=== PATIENT | female | born 1980 | race Caucasian/White ===

== ENCOUNTER 2025-01-08 17:23 | Emergency (ER) | payer OTHER, SELFPAY ==
[2025-01-08 17:35] VITALS: BP 138/92; PULSE 107; RESP 20; TEMP 37.2; O2SAT 94; BMI 22.9
--- NOTE | 2025-01-08 17:40 | ED_ITS ---
HPI - General Adult General Chief complaint: Weakness Stated complaint: vomiting, weak Time Seen by Provider: 01/08/25 17:28 History of Present Illness HPI narrative: comes to ed with concerns of weakness, fatigue, indigestion, nausea and abd pain. was admitted to [facility] and was found out she was anemic with hemoglobin of 5 and hypokalemic- 3.2 . did get 2 units of blood and iron. 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 is a smoker that is trying to quit. 44-year-old woman presenting to the emergency department with concern of dehydration and intermittent abdominal pain. Has not vomited at all today but numerous times yesterday. Is worried about being dehydrated. Was seen a month ago and area emergency department and actually admitted due to anemia and abdominal pain. She did receive a couple un its for a hemoglobin of about 5. Recommended for GI follow-up for endoscopy. She had been vomiting coffee-ground emesis at that time. Stools are generally dark because she is continuing diet supplement iron and she does continue to take her Protonix. Underlying history of Buerger's disease and she says unfortunately continues to smoke but she is working at quitting. She continues to struggle with dietary intake limited nearly only to mash potatoes; anything else causes a wave of pain across her abdomen or might trigger her to begin vomiting usually about 3 hours later. She is not currently having abdominal pain. Is worried about potential ulcer. She mentions that she does not believe any H pylori testing was yet done. Due to insurance sorting she has not had follow-up yet but anticipating appointment with primary care provider. Hemoglobin on discharge on 12/10 was 8.1 Related Data Home Medications ?Medication ?Instructions ?Recorded ?Confirmed ferrous sulfate 324 mg (65 mg 324 mg PO DAILY 01/08/25 01/08/25 iron) tablet,delayed release pantoprazole 40 mg tablet,delayed 40 mg PO BID 01/08/25 01/08/25 release potassium chloride 20 mEq 20 meq PO DAILY 01/08/25 01/08/25 tablet,extended release Allergies Allergy/AdvReac Type Severity Reaction Status Date / Time No Known Drug Allergies Allergy Verified 01/08/25 18:54 Review of Systems Status of ROS: Reports: 6 or more systems reviewed and unremarkable except as noted in History and below PFSH PFS Social History Smoking Status: Current every day smoker What tobacco products do you use: cigarettes Do you use any of these nicotine containing products: None Second hand tobacco smoke exposure: Yes How often do you have a drink containing alcohol: never How often do you have six or more drinks on one occasion: Never AUDIT-C Alcohol total score: 0 Non-prescribed substance use: denies use service: No Exam Narrative: Exam Narrative: Mildly pale mucous membranes but not terribly so. Upper denture plate. Smells heavily of cigarette smoke. Most fingers are bandaged and black and or inflamed distally. Absent numerous distal phalanges. Abdomen is soft and mildly uncomfortable but not terribly painful. No mass appreciated. Lower extremities are without edema. Const: Vital Signs, click to edit/add: Vital Signs - 24 hr 01/08/25 17:35 01/08/25 19:13 Temperature 98.9 F Pulse Rate [Pulse Oximeter] 107 H 106 H Respiratory Rate 20 16 Blood Pressure [Le ft Upper Arm] 138/92 H 135/94 H Pulse Oximetry 94 96 Oxygen Delivery Me thod Room Air Room Air Documenting provider has reviewed patient's vital signs: yes Course Vital Signs Vital signs: Initial Vital Signs Temperature 98.9 F 01/08/25 17:35 Temperature Source Temporal Artery Scan 01/08/25 17:35 Pulse Rate 107 H 01/08/25 17:35 Respiratory Rate 20 01/08/25 17:35 Blood Pressure 138/92 H 01/08/25 17:35 Blood Pressure Mean 107 H 01/08/25 17:35 Blood Pressure Position Supine 01/08/25 17:35 Pulse Oximetry 94 01/08/25 17:35 Oxygen Delivery Method Room Air 01/08/25 17:35 Vital Signs Temperature 98.9 F 01/08/25 17:35 Pulse Rate 107 H 01/08/25 17:35 Respiratory Rate 20 01/08/25 17:35 Blood Pressure 138/92 H 01/08/25 17:35 Pulse Oximetry 94 01/08/25 17:35 Oxygen Delivery Method Room Air 01/08/25 17:35 Temperature 98.9 F 01/08/25 17:35 Pulse Rate 106 H 01/08/25 19:13 Respiratory Rate 16 01/08/25 19:13 Blood Pressure 135/94 H 01/08/25 19:13 Pulse Oximetry 96 01/08/25 19:13 Oxygen Delivery Method Room Air 01/08/25 19:13 Medications Administered Medications: Generic Name Dose Route Start Last Admin Trade Name Freq PRN Reason Stop Dose Admin Sodium Chloride 500 mls @ 1,000 mls/hr 01/08/25 20:04 01/08/25 20:07 0.9 % Sodium Chloride 500 Ml IV 01/08/25 20:33 1,000 mls/hr .Q30M ONE Administration Discontinued Medications Generic Name Dose Route Start Last Admin Trade Name Freq PRN Reason Stop Dose Admin Sodium Chloride 1,000 mls @ 1,000 mls/hr 01/08/25 18:05 01/08/25 20:01 0.9 % Sodium Chloride 1000 Ml IV 01/08/25 19:04 Infused .Q1H ONE Infusion Morphine Sulfate 4 mg 01/08/25 19:27 01/08/25 20:02 Morphine 4 Mg/Ml Inj IVP 01/08/25 19:28 4 mg ONCE ONE Administration Medical Decision Making MDM Narrative Medical decision making narrative: Can certainly initiated IV hydration per concern. Is a little tachycardic. Recheck for recurrence of anemia now 30 days since last hospitalization. Challenged by lack of follow-up. Does not appear to have a bowel obstruction. Given smoking history and gastrointestinal issues and difficulty with follow-up, might not be a bad idea to scan abdomen and pelvis. Still needs EGD and possibly colonoscopy and continued efforts at smoking cessation. Hemoglobin stable at 9.9 and potassium just a bit low at 3.[address] abdomen and pelvis independently reviewed by me appears to show rather distended stomach with possibly some restriction about the duodenum. Wonder if this might represent some ulcer formation/inflammation or other mass? Requesting pain medicine for her fingers in cold room. Given 4 mg of morphine IV Radiology over-read below INDICATION: UPPER ABD POST PRANDIAL PAIN. TECHNIQUE: CT abdomen and pelvis acquired with 62 cc Isovue 370 IV contrast. COMPARISON: None. FINDINGS: Lower chest: Unremarkable. Liver: Unremarkable. Normal in size and attenuation. No suspicious masses. Gallbladder and bile ducts: Status post cholecystectomy. No intra or extrahepatic biliary ductal dilatation. Pancreas: Unremarkable. No mass or inflammation. Spleen: Unremarkable. Normal in size. No masses. Adrenal glands: Unremarkable. No nodules. Kidneys: Punctate nonobstructing stone at the superior pole of the right kidney. No hydronephrosis or hydroureter bilaterally. GI tract: No bowel obstruction. Mural fat in the cecum and proximal large bowel, can be seen in the setting of prior multiple episodes of inflammation. Normal appendix. Vasculature: Abdominal aorta is normal in caliber. Mesenteric arteries are patent. Lymph nodes: No lymphadenopathy. Peritoneum/Abdominal Wall: Unremarkable. No sign of mass or infiltration. No free air or significant free fluid. Pelvis: Unremarkable. Bones: Unremarkable for age. IMPRESSION: No acute intra-abdominal process identified. Please note that all CT scans at this facility use dose modulation, iterative reconstruction, and/or weight-based dosing when appropriate to reduce radiation dose to as low as reasonably achievable. Dictated by Amy Edwards MD @ 01/08/2025 7:31:41 PM At a minimum inflammatory changes in the proximal colon is probably contributing to what I was seeing. Still needs scopes. Review of records indicate that had been ordered for EGD and vascular follow-up through upon discharge from hospitalization a month ago. Says was without insurance and so did not follow-up with the vascular appointment until she could get that sorted. Has applied through [facility] now. She is unaware of EGD scheduling. She would like to have scopes ordered again. I can certainly order EGD in see if we can accomplish that as an outpatient. Labs are reassuring. Vitals stable. See patient discharge plan for further discussion I would call to [facility]/clinic to find out what is going on with those referrals particularly the vascular referral. They may be able to schedule your EGD as well. As discussed, I have made an order also for EGD for you. I cannot promise that this can happen this week but would anticipate us calling you tomorrow to schedule. I do think you need to schedule with a primary care provider for follow-up and continued workup. Sending you also with a disc with copies of the images today. Continue to take your Protonix at this point. Continue to try to quit smoking. [employer] may yet have some resources. Medical Records Medical records reviewed: Yes I reviewed the patient's medical records Lab Data Lab results reviewed: Yes I reviewed the patient's lab results Labs: Lab Results 01/08/25 Range/Units 18:34 WBC 10.03 (4.50-11.00) K/uL RBC 2.94 L (4.00-5.20) m/uL Hgb 9.9 L (12.0-16.0) gm/dL Hct 32.7 L (33.0-51.0) % MCV 111 H (80-100) fL MCH 34 (26-34) pg MCHC 30 L (32-36) gm/dL RDW Coeff of Jolanta 24.4 H (11.5-15.5) % Plt Count 336 (140-440) K/uL Neut % (Auto) 80.3 H (42.0-72.0) % Lymph % (Auto) 12.0 L (20-44) % [place] % (Auto) 6.1 (0.0-11.0) % Eos % (Auto) 0.9 (0.0-7.0) % Baso % (Auto) 0.5 (0.0-3.0) % Neut # (Auto) 8.10 H (1.7-7.0) K/uL Lymph # (Auto) 1.20 (0.90-2.90) K/uL [place] # (Auto) 0.60 (0.00-0.90) K/UL Eos # (Auto) 0.09 (0.00-0.50) K/uL Baso # (Auto) 0.05 (0.00-0.30) K/uL Abs Immat Gran (auto) 0.02 (0.00-0.30) K/uL Imm/Tot Granulo (auto) 0.2 % Sodium 133 L (135-149) mmol/L Potassium 3.1 L (3.6-5.1) mmol/L Chloride 99 (96-114) mmol/L Carbon Dioxide 29 (20-32) mmol/L Anion Gap 5 L (7-15) mEq/L BUN 13 (5-24) mg/dL Creatinine 0.5 (0.5-1.5) mg/dL Estimated Creat Clear 112.38 Estimated GFR 118 ml/min Glucose 97 (60-115) mg/dL Calcium 9.2 (8.4-10.6) mg/dL Total Bilirubin 0.5 (0.1-1.5) mg/dL Direct Bilirubin 0.4 (0.0-0.5) mg/dL AST 21 (12-35) U/L ALT 10 (4-35) U/L Alkaline Phosphatase 102 (40-150) U/L Total Protein 6.6 (6.0-8.3) g/dL Albumin 3.3 (3.3-5.0) g/dL Lipase 267 (23-300) U/L Discharge Plan Discharge Clinical Impression: Anemia, Generalized postprandial abdominal pain, Thromboangiitis obliterans (Buerger's disease), Nephrolithiasis Patient Disposition: Home w/ Parent or Adult Condition: Improved Additional Instructions: I would call to [facility]/clinic to find out what is going on with those referrals particularly the vascular referral. They may be able to schedule your EGD as well. As discussed, I have made an order also for EGD for you. I cannot promise that this can happen this week but would anticipate us calling you tomorrow to paulo samano. I do think you need to schedule with a primary care provider for follow-up and continued workup. Sending you also with a disc with copies of the images today. Continue to take your Protonix at this point. Continue to try to quit smoking. [employer] may yet have some resources. Prescriptions: No Action pantoprazole 40 mg tablet,delayed release (DR/EC) 40 mg PO BID ferrous sulfate 324 mg (65 mg iron) tablet,delayed release (DR/EC) 324 mg PO DAILY potassium chloride 20 mEq tablet extended release 20 meq PO DAILY Follow Up/Referrals: Provider,Not a Local [Primary Care Provider] - Stand Alone Forms: FileString Info Instructions
[2025-01-08] MEDS: 0.9 % SODIUM CHLORIDE 1000 ml 1,000 ML IV (18:00)
--- NOTE | 2025-01-08 18:41 | CRLHL7_ITS ---
For Patients: As a result of the Century Cures Act, medical imaging exams and procedure reports are released immediately into your electronic medical record. You may view this report before your referring provider. If you have questions, please contact your health care provider. INDICATION: UPPER ABD POST PRANDIAL PAIN. TECHNIQUE: CT abdomen and pelvis acquired with 62 cc Isovue 370 IV contrast. COMPARISON: None. FINDINGS: Lower chest: Unremarkable. Liver: Unremarkable. Normal in size and attenuation. No suspicious masses. Gallbladder and bile ducts: Status post cholecystectomy. No intra or extrahepatic biliary ductal dilatation. Pancreas: Unremarkable. No mass or inflammation. Spleen: Unremarkable. Normal in size. No masses. Adrenal glands: Unremarkable. No nodules. Kidneys: Punctate nonobstructing stone at the superior pole of the right kidney. No hydronephrosis or hydroureter bilaterally. GI tract: No bowel obstruction. Mural fat in the cecum and proximal large bowel, can be seen in the setting of prior multiple episodes of inflammation. Normal appendix. Vasculature: Abdominal aorta is normal in caliber. Mesenteric arteries are patent. Lymph nodes: No lymphadenopathy. Peritoneum/Abdominal Wall: Unremarkable. No sign of mass or infiltration. No free air or significant free fluid. Pelvis: Unremarkable. Bones: Unremarkable for age. IMPRESSION: No acute intra-abdominal process identified. Please note that all CT scans at this facility use dose modulation, iterative reconstruction, and/or weight-based dosing when appropriate to reduce radiation dose to as low as reasonably achievable. Dictated by Amy Edwards MD @ 01/08/2025 7:31:41 PM (Electronically Signed)
[2025-01-08 18:51] LABS: Basophils Absolute Auto 0.05 K/uL (0.00-0.30); Basophils Percent Auto 0.5 % (0.0-3.0); Eosinophils Absolute Auto 0.09 K/uL (0.00-0.50); Eosinophils Percent Auto 0.9 % (0.0-7.0); Hematocrit 32.7 % (33.0-51.0); Hemoglobin* 9.9 gm/dL (12.0-16.0); Immature Granulocytes Abs Auto 0.02 K/uL (0.00-0.30); Immature Granulocytes Pct Auto 0.2 %; Mean Corpuscular HGB Conc 30 gm/dL (32-36); Mean Corpuscular Hemoglobin 34 pg (26-34); Mean Corpuscular Volume 111 fL (80-100); Monocytes Percent Auto 6.1 % (0.0-11.0); Neutrophils Percent Auto 80.3 % (42.0-72.0); Platelet Count* 336 K/uL (140-440); RDW Coefficient of Variation % 24.4 % (11.5-15.5); Red Blood Count 2.94 m/uL (4.00-5.20); White Blood Count* 10.03 K/uL (4.50-11.00)
[2025-01-08 18:58] LABS: Slide Review Reflex No
[2025-01-08 19:08] LABS: Chloride* 99 mmol/L (96-114)
[2025-01-08 19:09] LABS: Albumin* 3.3 g/dL (3.3-5.0); Potassium* 3.1 mmol/L (3.6-5.1); Sodium* 133 mmol/L (135-149)
[2025-01-08 19:12] LABS: Alanine Aminotransferase* 10 U/L (4-35); Alkaline Phosphatase* 102 U/L (40-150); Anion Gap 5 mEq/L (7-15); Aspartate Amino Transferase* 21 U/L (12-35); Bilirubin Direct* 0.4 mg/dL (0.0-0.5); Bilirubin Total* 0.5 mg/dL (0.1-1.5); Blood Urea Nitrogen* 13 mg/dL (5-24); Calcium* 9.2 mg/dL (8.4-10.6); Carbon Dioxide* 29 mmol/L (20-32); Creatinine* 0.5 mg/dL (0.5-1.5); Est. Creatinine Clearance* 112.38; Estimated Glomerular Filt Rate 118 ml/min; Glucose* 97 mg/dL (60-115); Lipase* 267 U/L (23-300); Total Protein* 6.6 g/dL (6.0-8.3)
[2025-01-08 19:13] VITALS: BP 135/94; PULSE 106; RESP 16; O2SAT 96
--- OUTSIDE RECORDS SUMMARY | 2025-01-08 19:37 | XMS_ITS | Clinical Summary ---
Author Organization [facility] Address [address] [place] [id number] Care Team Providers Care Distribution Clerk Name Role Phone Nonstaff, Doctor Primary Care Provider Unavailab le Allergies Active Allergy Reactions Criticality Noted Date Comments Cats (Fur, Dander, Saliva) Hives 7 Ibuprofen Edema 01/22/2007 face Medications pantoprazole 40 mg delayed-release tabletIndication s:Gastroesophage al reflux disease, unspecified whether esophagitis present Take 1 Tablet (40 mg) by mouth two times daily before meals. 60 Tablet 1 12/10/2024 5:12 PM CDT 12/10/2024 Active ferrous sulfate 325 mg (65 mg iron) tabletIndication s:Iron deficiency anemia due to chronic blood loss Take 1 Tablet (325 mg) by mouth once daily with a meal. 30 Tablet 1 12/10/2024 5:12 PM CDT 12/10/2024 Active potassium chloride 20 mEq extended-release tablet (part/cryst)Nohemi cations:Hypokale cristobal Take 1 Tablet (20 mEq) by mouth once daily with a meal. 90 Tablet 12/10/2024 5:12 PM CDT 12/10/2024 Active Active Problems Problem Noted Date Diagnosed Date Autoamputation of toe or finger 12/10/2024 Thromboangiitis obliterans (Buerger's disease) 0 12/10/2024 Overview (12/10/2024): Highly suspicious of this, though has not had full workup to rule out other potential causes, patient adamant about discharging today. Vascular referral placed upon discharge. Shortness of breath 12/09/2024 Iron deficiency anemia due to chronic blood loss 12/09/2024 Overview (12/10/2024): Suspect patient has gastritis or PUD: Frequent NSAID use, significant GERD symptoms, frequent soda pop consumption, tobacco user. EGD not completed during admission, patient adamant about discharging and hemoglobin remained stable. IV iron dextran given during admission Hypokalemia 12/09/2024 Overview (12/10/2024): Suspect this was secondary to ongoing emesis Tobacco use 12/09/2024 Major depression, single episode 07/21/2010 Overview (07/21/2010): Suicide attempt 07/04 Tobacco abuse 07/21/2010 Resolved Problems Problem Noted Date Diagnosed Date Resolved Date Alcohol abuse 12/09/2024 12/09/2024 Encounters Date Type Department Care Team Description 12/09/2024 4:44 PM CDT - 12/10/2024 6:40 PM CDT Hospital Encounter [facility] [address] [place] [address] Christie Carbajal PA Mittelsteadt, Diliana Stoimenova, MD Hospitalist, [facility] Bueno, Anuradha Watson, MD Rich, Ebonie Chi, DO Anemia, unspecified type (Primary Dx); MARVIN (dyspnea on exertion); Gastroesophageal reflux disease, unspecified whether esophagitis present; Iron deficiency anemia due to chronic blood loss; Hypokalemia; Autoamputation of toe or finger Discharge Disposition: Home Self Care 12/09/2024 Travel from Last 3 Months Immunizations Immunization Administration Dates Next Due Tdap 01/25/2006 Social History Tobacco Use Types Packs/Day Years Used Date Smoking Tobacco: Every Day Cigarettes Smokeless Tobacco: Never Tobacco Cessation:Ready to Q uit: No; Counseling Given: Yes Alcohol Use Standard Drinks/Week Comments Yes 0 (1 standard drink = 0.6 oz pur e alcohol) rare Social Connections Answer Date Recorded Do you often feel lonely or isolated from those around you? 0 12/10/2024 Financial Resource Strain Answer Date R ecorded Difficulty of Paying Living Expenses 2 12/10/2024 Difficulty of Paying Living Expenses 1 12/10/2024 Food Insecurity Answer Date Recorded Do you worry your food will run out before you are able to buy more? 1 12/10/2024 Transportation Needs Answer Date Record ed Does lack of transportation keep you from medica l appointments? 1 12/10/2024 Does lack of transportation keep you from work, meetings or getting things that you need? 1 12/10/2024 Housing Stability Answer Date Recorded What is your housing situation today? 1 12/10/2024 Interpersonal Safety Answer Date Record ed Are you being hit, kicked, p ushed or yelled at (see row info)? No 12/09/2024 Interpersonal Safety Abuse 12 - 18 Not on file 12/09/2024 Interpersonal Safety Ambulatory Vulnerability No t on file 12/09/2024 Utilities Answer Date Recorded Do you have trouble paying f or utilities (for example, heat, electricity, water, phone)? 1 12/10/2024 Comments No Sex and Gender Information Value Date Recorded Sex Assigned at Female 12/09/2024 4:46 PM CDT Legal Sex Female 5:40 AM [employer] Gender Identity Female 12/09/2024 4:46 PM CDT Sexual Orientation Straight 12/09/2024 4: 46 PM CDT Occupation Industry Job Start Date Job End Date [employer] Not on file Not on file Not on file Obstetrics History Last Filed Vital Signs Vital Sign Reading Time Taken Comments Blood Pressure 141/78 12/10/2024 5:41 PM CDT Pulse 99 12/10/2024 5:41 PM CDT Temperature 37.1 C (98.8 F) 12/10/2024 5:41 PM CDT Respiratory Rate 16 12/10/2024 5:41 PM CDT Oxygen Saturation 97% 12/10/2024 5:41 PM CDT Inhaled Oxygen Concentration - - Weight 59.9 kg (132 lb) 12/09/2024 4:49 PM CDT Height 154.9 cm (5' 1) 12/10/2024 12:15 AM CDT Body Mass Index 24.94 12/09/2024 4:49 PM CDT Plan of Treatment Health Maintenance Due Date Last Done Comments Depression screening for age 12+ 1991 HIV for age 15-65 1994 BMI (ht and wt on same day) for age 18+ 1997 Hepatitis C screening for age 18-79 1997 Pneumococcal series for age 6-49 (1 of 2 - PCV) 1997 Pap test for age 21-65 02/12/2000 Tetanus booster 01/26/2016 01/25/2006 Colonoscopy through age 75 02/12/2024 Lipids for age 45-75 02/12/2024 Mammogram for age 45-75 02/12/2024 COVID-19 vaccine series ( - season) Influenza Vaccine (Season Ended) 2025 Tdap Completed 01/25/2006 Procedures Procedure Name Priority Date/Time Associated Diagnosis Comments RBC W/O TYPE & SCREEN STAT 12/11/2024 5:22 AM CDT SEDIMENTATION RATE INDER 12/10/2024 12 :22 PM CDT C-REACTIVE PROTEIN INDER 12/10/2024 12 :22 PM CDT POTASSIUM Timed 12/10/2024 12:22 PM CDT HEMOGLOBIN Timed 12/10/2024 12:22 PM CDT SCAN-CARDIAC STRIP 12/10/2024 9: 25 AM CDT PERIPHERAL BLD MORPHOLOGY Early AM 12/10/2024 5:52 AM CDT CARDIOLIPIN ANTIBODY INDER 12/10/2024 5:51 AM CDT MAGNESIUM INDER 12/10/2024 5:51 AM CDT PLATELET COUNT Early AM 12/10/2024 5:51 AM CDT CREATININE Early AM 12/10/2024 5:51 AM CDT POTASSIUM Early AM 12/10/2024 5:51 AM CDT SODIUM Early AM 12/10/2024 5:51 AM CDT VITAMIN B12 Early AM 12/10/2024 5:51 AM CDT HEMOGLOBIN Timed 12/10/2024 5:51 AM CDT SCAN-CARDIAC STRIP 12/10/2024 4: 06 AM CDT TRANSFUSE RBC (NURSE COMMUNICATION ORDER) STAT 12/10/2024 2:53 AM CDT RED BLOOD CELLS EA UNIT STAT 12/10/2024 1:20 AM CDT FOLIC ACID Timed 12/10/2024 12:50 AM CDT ANTINUCLEAR ANTIBODY BY IFA Today 12/10/2024 12:49 AM CDT HEMOGLOBIN Timed 12/10/2024 12:49 AM CDT LD,TOTAL Today 12/10/2024 12:49 AM CDT TROPONIN T (HS) ONE TIME Timed 12/10/2024 12:49 AM CDT TRANSFUSE RBC (NURSE COMMUNICATION ORDER) STAT 12/09/2024 8:47 PM CDT OCCULT BLOOD IFOBT STOOL Today 12/09/2024 7:22 PM CDT SCAN-CARDIAC STRIP 12/09/2024 7: 15 PM CDT RBC W/O TYPE & SCREEN STAT 12/09/2024 7:15 PM CDT TYPE & SCREEN STAT 12/09/2024 6:59 PM CDT HEMOGLOBIN A1C INDER 12/09/2024 6:59 PM CDT RETICULOCYTES INDER 12/09/2024 6:59 PM CDT HEPATIC FUNCTION PANEL INDER 6:59 PM CDT POTASSIUM STAT 12/09/2024 6:59 PM CDT HEMOGLOBIN STAT 12/09/2024 6:59 PM CDT RED BLOOD CELLS EA UNIT STAT 12/09/2024 6:46 PM CDT XR CHEST 2 VIEWS PA AND LATERAL STAT 12/09/2024 6:16 PM CDT EKG 12 LEAD STAT 12/09/2024 5:47 PM CDT PROTIME-INR INDER 12/09/2024 5:43 PM CDT HAPTOGLOBIN INDRE 12/09/2024 5:43 PM CDT FERRITIN INDER 12/09/2024 5:43 PM CDT IRON PLUS IRON BINDING CAP INDER 12/09/2024 5:43 PM CDT PRO-BNP INDER 12/09/2024 5:43 PM CDT TROPONIN T (HS) ACUTE W/2HR REFLEX INDER 12/09/2024 5:43 PM CDT MAGNESIUM INDER 12/09/2024 5:43 PM CDT CWS PATH REVIEW HEMATOLOGY STAT 12/09/2024 5:43 PM CDT RED CELL MORPHOLOGY STAT 12/09/2024 5 :43 PM CDT PLATELET ESTIMATE STAT 12/09/2024 5:4 3 PM CDT MANUAL DIFFERENTIAL STAT 12/09/2024 5 :43 PM CDT CBC WITH AUTO DIFFERENTIAL STAT 12/09/2024 5:43 PM CDT ETHANOL SERUM OR PLASMA STAT 12/09/2024 5:43 PM CDT EXTRA TUBE BLUE Today 12/09/2024 5:43 PM CDT BASIC METABOLIC PANEL STAT 12/09/2024 5:43 PM CDT CBC WITH AUTO DIFFERENTIAL STAT 12/09/2024 5:43 PM CDT from Last 3 Months Results * RBC W/O TYPE & SCREEN (12/11/2024 5:22 AM CDT) Only the most recent of2 resultswithin the time period is included. QUANTITY 1 12/11/2024 5:22 AM CDT [facility] BLOOD BANK Blood BLOOD SPECIMEN / Unknown 12/10/2024 1:08 AM CDT Anuradha Bueno MD BLOOD BANK Final R esult Performing Organization Address City/[facility]/ZIP Co de Phone Number [facility] BLOOD BANK [address] [place] [address] * SEDIMENTATION RATE (12/10/2024 12:22 PM CDT) [facility] SEDIMENTATION RATE 7 <20 mm/hr 2024 1:44 PM CDT [facility] Blood BLOOD SPECIMEN / Unknown Butterfly / Unknown 12/10/2024 12:22 PM CDT 12/10/2024 12:24 PM CDT Ebonie Rich DO HEMATOLOGY Final Result Performing Organization Address City/[facility]/ZIP Co de Phone Number [facility] [address] [place] [address] * (ABNORMAL) Hemoglobin q 6 (12/10/2024 12:22 PM CDT) Only the most recent of4 resultswithin the time period is included. HEMOGLOBIN 8.1(L) 12.0 - 16.0 g/dL 12/10/2024 1:39 PM CDT [facility] MCV 90 80 - 100 fL 12/10/2024 1:39 PM CDT [facility] Blood BLOOD SPECIMEN / Unknown Butterfly / Unknown 12/10/2024 12:22 PM CDT 12/10/2024 12:24 PM CDT Anuradha Bueno MD HEMATOLOGY Final R esult Performing Organization Address City/[facility]/ZIP Co de Phone Number [facility] [address] [place] [address] * (ABNORMAL) POTASSIUM (12/10/2024 12:22 PM CDT) Only the most recent of3 resultswithin the time period is included. POTASSIUM 3.4(L) 3.5 - 5.1 mmol/L 12/10/2024 12:45 PM CDT [facility] Blood BLOOD SPECIMEN / Unknown Butterfly / Unknown 12/10/2024 12:22 PM CDT 12/10/2024 12:24 PM CDT Ebonie Rich DO CHEMISTRY Final Result Performing Organization Address [facility]/ZIP Co de Phone Number [facility] [address] [place] [address] * (ABNORMAL) C-REACTIVE PROTEIN (12/10/2024 12:22 PM CDT) C-REACTIVE PROTEIN 1.0(H) <0.5 mg/dL 12/10/2024 1:56 PM CDT [facility] Blood BLOOD SPECIMEN / Unknown Butterfly / Unknown 12/10/2024 12:22 PM CDT 12/10/2024 12:24 PM CDT Ebonie Rich DO CHEMISTRY Final Result Performing Organization Address City/[facility]/ZIP Co de Phone Number [facility] [address] [place] [address] * SCAN-CARDIAC STRIP (12/10/2024 9:25 AM CDT) us Scanner OTHER Final Result * TRANSFUSE RBC (NURSE COMMUNICATION ORDER) (12/10/2024 5:57 AM CDT) Blood BLOOD SPECIMEN / Unknown us Anuradha Bueno MD NURSING BLOOD BANK Hailee merchant Result * Peripheral blood morphology (12/10/2024 5:52 AM CDT) Case Report Special Hematology Report Case: [id number] Authorizing Provider: Anuradha Bueno MD Collected: 12/10/2024 0552 Ordering Location: [facility] Received: 12/10/[address] [place] [address] Pathologist: Chad Glynn MD Specimen: Blood 12/11/2024 2:08 PM CDT [facility] ENTRAL LABORATORY Final Diagnosis PERIPHERAL BLOOD: 1. Marked normocytic anemia, consistent with iron deficiency anemia 2. Moderate thrombocytosis, favor reactive 3. Mild absolute neutrophilia, favor reactive 4. See comment 12/11/2024 2:08 PM CDT [facility]-C ENTRAL LABORATORY at 1408 CDT Comment The morphologic and laboratory features of this anemia are characteristic of iron deficiency. In the adult population, blood loss is the most common etiology for iron deficiency with gastrointestinal and gynecologic sites (in women) being the most common sites. Malabsorption issues (gastric bypass, Crohn's disease, celiac sprue) and deficient dietary intake are also in the differential. Clinical correlation is recommended. There are no features of hemolysis. Thrombocytosis is commonly associated with iron deficiency as a reactive component and should resolve when the iron stores are adequately replenished. If the thrombocytosis persists (>450K) after adequate iron replacement (and without identifiable clinical etiology), recommend further evaluation to assess thrombocytosis. This case was also reviewed by Marisol Castillo MT, MS (ASCP). 12/11/2024 2:08 PM CDT [facility] Clinical Information The patient is a 44-year-old female. Pertinent clinical information: Severe anemia. Per EPIC: She was recently admitted 12/09/2024 - 12/10/2024 for [facility] due to chronic blood loss and thromboangiitis obliterans. Additional history includes tobacco use. 12/09/24 17:43 FERRITIN: 10.2 (L) IRON: 12 (L) IRON BINDING CAPACITY : 336 IRON,% SATURATION : 4 (L) UIBC (UNSATURATED) : 324 HAPTOGLOBIN : 163 12/10/24 00:49 LD,TOTAL: 251 (H) FOLIC ACID: 8.0 VITAMIN B12: 1,175 12/11/2024 2:08 PM CDT [facility] CBC and Differential HEMATOLOGY PARAMETERS Tested at: [facility] RESULTS EXPECTED VALUES WBC: 9.7 4.5-37y1343/cumm RBC: 2.33 4.00-5.20 mil/cumm DECREASED HGB: 5.5 12-16 gm/dl DECREASED HCT: 21.2 33-51% DECREASED MCV: 91.0 80-100 fl NORMOCYTIC MCH: 23.6 26-34 pg DECREASED MCHC: 25.9 32-36 gm/dl HYPOCHROMIC RDW: 22.8 11.5-15.5% ELEVATED PLT: 648 [id number]/uL ELEVATED MPV: 9.2 6.5-11 fl Retic: 1.9 0.5-1.5% ELEVATED Differential Tested at: [facility] Absolute (%) Expected (%) (x10*9/L) (x10*9/L) Neutrophils: 7.8 (80.4) 1.7-7.0 (42-72%) ELEVATED Lymphocytes: 1.3 (13.4) 0.9-2.9 (20-44%) Monocytes: 0.6 (6.2) <0.9 (0-11%) Basophils: 0.1 (1) <0.3 (<3.0%) 12/11/2024 2:08 PM T [facility] Reticulocytes Retic: 1.9 0.5-1.5% ELEVATED 12/11/2024 2:08 PM [facility] Microscopic Description The final diagnosis is based on microscopic examination of an appropriately stained blood smear. 12/11/2024 2:08 PM CDT [facility]-C ENTRAL LABORATORY Additional Information Interpreted at [facility], Central Laboratory - [address], [place] [address] 12/11/2024 2:08 PM CDT [facility]-C ENTRAL LABORATORY Blood BLOOD SPECIMEN / Unknown Venipuncture / Unknown 12/10/2024 5:52 AM CDT 12/10/2024 6:18 AM CDT Comment:CURRENT MEDICATIONSC urrent Facility-Administered Medications: NaCl 0.9% (ADV; MINIBAG+) IV solution, 25 mL/hr, Intravenous, continuous, Christie Carbajal PA potassium chloride 10 mEq/100 mL water for injection IVPB, 10 mEq, Intravenous, q75min, Christie Carbajal PA, Last Rate: 10 mEq (12/09/241947) potassium REPLACEMENT protocol, , Protocol, protocol, Christie Carbajal PANo current outpatient medications on file. us Anuradha Bueno MD HEMATOLOGY Final R esult [facility] [address] [place] [address], * CARDIOLIPIN ANTIBODY (12/10/2024 5:51 AM CDT) Cardiolipin IgA 2.1 <=20.0 CU 5 12:17 PM CDT [facility] Cardiolipin IgG 2.7 <=20.0 CU 5 12:17 PM CDT [facility] Cardiolipin IgM 1.8 <=20.0 CU 5 12:17 PM CDT [facility] Blood BLOOD SPECIMEN / Unknown Butterfly / Unknown 12/10/2024 5:51 AM CDT 12/10/2024 6:18 AM CDT Narrative [facility] - 12/13/2024 12:17 PM CDT Interpretation: Moderate to high titers (40 GPL or MPL by RIMMA assays) of aCL correlate better with aPL-related clinical events than do lower titers; IgG is more strongly associated with clinical events than is IgM ([facility] 378(21):2009). Horticultural Services Supervisor's studies have shown the following correlation between anti- cardiolipin antibody levels quantified by the BioFlash Chemiluminescent method compared to RIMMA (Antibodies 2016,5,14): For IgG aCL: 95 CU corresponds to 40 GPL For IgM aCL: 31 CU corresponds to 40 MPL Ebonie Rich DO SEND OUTS Final Result Performing Organization Address City/[facility]/ZIP Co de Phone Number [facility]-CENTRAL LABORATORY [address] [place] [address], * (ABNORMAL) PLATELET COUNT (12/10/2024 5:51 AM CDT) PLATELET COUNT 531(H) 140 - 440 thou/cu mm 12/10/2024 6:23 AM CDT [facility] MPV 9.1 6.5 - 11.0 fL 12/10/2024 6:23 AM CDT [facility] Blood BLOOD SPECIMEN / Unknown Butterfly / Unknown 12/10/2024 5:51 AM CDT 12/10/2024 6:17 AM CDT Anuradha Bueno MD HEMATOLOGY Final R esult Performing Organization Address [facility] Co de Phone Number [facility] [address] [place] [address] * SODIUM (12/10/2024 5:51 AM CDT) SODIUM 141 136 - 145 mmol/L 12/10/2024 7:11 AM CDT [facility] Blood BLOOD SPECIMEN / Unknown Butterfly / Unknown 12/10/2024 5:51 AM CDT 12/10/2024 6:18 AM CDT Anuradha Bueno MD CHEMISTRY Final R esult Performing Organization Address [facility] Co de Phone Number [facility] [address] [place] [address] * (ABNORMAL) CREATININE (12/10/2024 5:51 AM CDT) Pathologist [facility] eGFR >90 >90 mL/min/1.7 3m2 12/10/2024 7:11 AM CDT [facility] Comment:As of 2021, eG FR is calculated by the CKD-EPI creatinine equation without race adjustment. eGFR can be influenced by muscle mass, exercise, and diet. The reported eGFR is an estimation only and is only applicable if the renal function is stable. CREATININE 0.31(L) 0.50 - 0.90 mg/dL 12/10/2024 7:11 AM CDT [facility] Blood BLOOD SPECIMEN / Unknown Butterfly / Unknown 12/10/2024 5:51 AM CDT 12/10/2024 6:18 AM CDT Anuradha Bueno MD CHEMISTRY Final R esult [facility] [address] [place] [address] * MAGNESIUM (12/10/2024 5:51 AM CDT) Only the most recent of2 resultswithin the time period is included. Pathologist [facility] MAGNESIUM 2.0 1.6 - 2.6 mg/dL 12/10/2024 7:22 AM CDT [facility] Blood BLOOD SPECIMEN / Unknown Butterfly / Unknown 12/10/2024 5:51 AM CDT 12/10/2024 6:18 AM CDT Danyelle Stevens NP CHEMISTRY Final Result [facility] [address] [place] [address] * Vitamin B12 level AM (12/10/2024 5:51 AM CDT) Pathologist [facility] VITAMIN B12 1,175 232 - 1,245 pg/mL 12/10/2024 1:00 PM CDT [facility] Blood BLOOD SPECIMEN / Unknown Butterfly / Unknown 12/10/2024 5:51 AM CDT 12/10/2024 6:18 AM CDT Narrative [facility] - 12/10/2024 1:00 PM CDT Biotin supplements may cause clinically significant interference for this test assay. If interference is suspected, it is strongly recommended that biotin is discontinued for at least one week prior to retesting. Anuradha Bueno MD CHEMISTRY Final R esult [facility] [address] [place] [address], [place] * SCAN-CARDIAC STRIP (12/10/2024 4:06 AM CDT) Scanner OTHER Final Result * RED BLOOD CELLS EA UNIT (12/10/2024 1:20 AM CDT) Only the most recent of2 resultswithin the time period is included. Pathologist [facility] CROSSMATCH Compatible Compatible [facility] BLOOD BANK PRODUCT BLOOD TYPE A Rh Positive [facility] BLOOD BANK PRODUCT ID NUMBER [id number] [facility] BLOOD BANK PRODUCT STATUS Transfused [facility] BLOOD BANK PRODUCT DESCRIPTION RBC -1 LR [facility] BLOOD BANK PRODUCT CODE [id number] [facility] BLOOD BANK ISSUE DATE/TIME 12/10/24 02:31 [facility] BLOOD BANK Christie JOLLEY BLOOD BANK Edited Result - Final [facility] BLOOD BANK [address] [place] [address] * FOLIC ACID (12/10/2024 12:50 AM CDT) FOLIC ACID 8.0 4.6 - 34.8 ng/mL 12/10/2024 12:55 PM CDT [facility] Blood BLOOD SPECIMEN / Unknown Butterfly / Unknown 12/10/2024 12:50 AM CDT 12/10/2024 12:53 AM CDT Narrative [facility] - 12/10/2024 12:55 PM CDT Biotin supplements may cause clinically significant interference for this test assay. If interference is suspected, it is strongly recommended that biotin is discontinued for at least one week prior to retesting. Anuradha Bueno MD CHEMISTRY Final R esult [facility] [address] [place] [address], * (ABNORMAL) TROPONIN T (HS) ONE TIME (12/10/2024 12:49 AM CDT) Pathologist [facility] TROPONIN T HS 13(H) 6-10 ng/L ng/L 12/10/2024 1:29 AM CDT [facility] Blood BLOOD SPECIMEN / Unknown Butterfly / Unknown 12/10/2024 12:49 AM CDT 12/10/2024 12:53 AM CDT Christie JOLLEY CHEMISTRY Final Result Performing Organization Address City/[facility]/ZIP Co de Phone Number [facility] [address] [place] [address] * (ABNORMAL) FLOR (12/10/2024 12:49 AM CDT) ANTINUCLEAR ANTIBODY (FLOR) Positive( A) Negative 12/13/2024 12:40 PM CDT [facility] FLOR PATTERN 1 Centromer e(A) (none) 12/13/2024 12:40 PM CDT [facility] FLOR TITER 1 >=1:2560( A) (none) 12/13/2024 12:40 PM CDT [facility] Blood BLOOD SPECIMEN / Unknown Butterfly / Unknown 12/10/2024 12:49 AM CDT 12/10/2024 12:53 AM CDT Narrative [facility] - 12/13/2024 12:40 PM CDT Method: FLOR screen performed by (IFA) on HEP-2 substrate, IgG Anuradha Bueno MD CHEMISTRY Final R esult [facility]-C[facility]AL LABORATORY [address] [place] [address], [place] * (ABNORMAL) LD,TOTAL (12/10/2024 12:49 AM CDT) LD,TOTAL 251(H) 135 - 214 IU/L 12/10/2024 1:39 AM CDT [facility] Blood BLOOD SPECIMEN / Unknown Butterfly / Unknown 12/10/2024 12:49 AM CDT 12/10/2024 12:53 AM CDT Anuradha Bueno MD CHEMISTRY Final R esult [facility] [address] [place] [address] * TRANSFUSE RBC (NURSE COMMUNICATION ORDER) (12/09/2024 10:39 PM CDT) Blood BLOOD SPECIMEN / Unknown Christie JOLLEY NURSING BLOOD BANK Fin al Result * OCCULT BLOOD IFOBT STOOL (12/09/2024 7:22 PM CDT) STOOL BLOOD ,IFOBT Negative Negative 12/09/2024 7:46 PM CDT [facility] Stool STOOL SPECIMEN / Unknown Non-Blood / Unknown 12/09/2024 7:22 PM CDT 12/09/2024 7:26 PM CDT Christie JOLLEY LABORATORY Final Result [facility] [address] [place] [address] * SCAN-CARDIAC STRIP (12/09/2024 7:15 PM CDT) us Scanner OTHER Final Result * Screening hemoglobin A1c FOR ADD ON (12/09/2024 6:59 PM CDT) [facility] HEMOGLOBIN A1C SCREENING 5.3 <=6.4 % 12/10/2024 7:58 AM CDT [facility] Blood BLOOD SPECIMEN / Unknown Venipuncture / Unknown 12/09/2024 6:59 PM CDT 12/09/2024 7:03 PM CDT Narrative [facility] - 12/10/2024 7:58 AM CDT (<5.7%) Normal (5.7% to 6.4%) Indicates prediabetes (>=6.5%) Confirms diabetes Falsely low levels may be seen with: Recent Transfusion, Recent Significant Blood Loss, Hemolytic Diseases, or Falsely elevated levels may be seen with: Untreated Anemias, Splenectomy us Anuradha Bueno MD CHEMISTRY Final R esult [facility] [address] [place] [address] * TYPE AND SCREEN ONLY (12/09/2024 6:59 PM CDT) [facility] ABORH A Rh Positive 12/09/2024 7:44 PM CDT [facility] BLOOD BANK ANTIBODY SCREEN Negative Negative 12/09/2024 7:44 PM CDT [facility] BLOOD BANK SPECIMEN EXPIRATION DATE/TIME 12/12/24 23:59 12/09/2024 7:44 PM CDT [facility] BLOOD BANK Blood BLOOD SPECIMEN / Unknown Venipuncture / Unknown 12/09/2024 6:59 PM CDT 12/09/2024 7:03 PM CDT us Christie JOLLEY BLOOD BANK Final Result [facility] BLOOD BANK [address] [place] [address] * (ABNORMAL) Reticulocyte count AM (12/09/2024 6:59 PM CDT) RETIC% 1.9(H) 0.5 - 1.5 % 12/10/2024 12:40 PM CDT [facility] RETIC (ABSOLUTE) 0.04 0.03 - 0.08 mil/cu mm 12/10/2024 12:40 PM CDT [facility] Blood BLOOD SPECIMEN / Unknown Venipuncture / Unknown 12/09/2024 6:59 PM CDT 12/09/2024 7:03 PM CDT us Anuradha Bueno MD HEMATOLOGY Final R esult [facility] [address] [place] [address], * (ABNORMAL) HEPATIC FUNCTION PANEL (12/09/2024 6:59 PM CDT) Pathologist [facility] ALBUMIN 3.1(L) 4.0 - 4.9 g/dL 12/09/2024 8:18 PM [facility] PROTEIN,TOTAL 5.9(L) 6.0 - 8.0 g/dL 12/09/2024 8:18 PM [facility] BILIRUBIN,TOTAL 0.2 0.0 - 1.2 mg/dL 12/09/2024 8:18 PM [facility] BILIRUBIN,DIRECT 0.1 0.0 - 0.2 mg/dL 12/09/2024 8:18 PM [facility] BILIRUBIN,INDIRE CT 0.1(L) 0.2 - 0.8 mg/dL 12/09/2024 8:18 PM [facility] ALK PHOSPHATASE 82 35 - 104 IU/L 12/09/2024 8:18 PM [facility] ALT (SGPT) <5(L) 10 - 35 IU/L 12/09/2024 8:18 PM [facility] AST (SGOT) 17 10 - 35 IU/L 12/09/2024 8:18 PM CDT [facility] Blood BLOOD SPECIMEN / Unknown Venipuncture / Unknown 12/09/2024 6:59 PM CDT 12/09/2024 7:33 PM CDT us Christie Odilon Carbajal PA CHEMISTRY Final Result [facility] [address] [place] [address] * XR CHEST 2 VIEWS PA AND LATERAL (12/09/2024 6:16 PM CDT) Anatomical Region Laterality Modality CHEST, THORAX, Lung, HEART Digit al Radiography 12/09/2024 6:47 PM CDT Impressions 12/09/2024 6:47 PM CDT 1. No acute cardiopulmonary disease is seen. Dictated by: Donnie Meng MD @ 12/09/2024 18:47:35 (Electronically Signed) Narrative 12/09/2024 6:47 PM CDT For Patients: As a result of the Cures Act, medical imaging exams and procedure reports are released immediately into your electronic medical record. You may view this report before your referring provider. If you have questions, please contact your health care provider. INDICATION: Shortness of breath TECHNIQUE: Chest radiograph 2 views COMPARISON: None FINDINGS: Mediastinum: The mediastinum is normal in appearance. The heart silhouette is normal in size and morphology. Lung: Both lungs are unremarkable in appearance. A prominent right nipple silhouette is noted. No sign of pleural effusion seen. No pneumothorax is identified. Bone and Soft tissue: Unremarkable for age. Procedure Note Donnie Meng MD - 12/09/2024 For Patients: As a result of the Cures Act, medical imagingexams and procedure reports are released immediately into your electronicmedical record. You may view this report before your referring provider.If you have questions, please contact your health care provider. INDICATION: Shortness of breath TECHNIQUE: Chest radiograph 2 views COMPARISON: None FINDINGS: Mediastinum: The mediastinum is normal in appearance. The heart silhouetteis normal in size and morphology. Lung: Both lungs are unremarkable in appearance. A prominent right nipplesilhouette is noted. No sign of pleural effusion seen. No pneumothorax isidentified. Bone and Soft tissue: Unremarkable for age. IMPRESSION: 1. No acute cardiopulmonary disease is seen. Dictated by: Donnie Meng MD @ 12/09/2024 18:47:35 (Electronically Signed) Christie JOLLEY [facility] Final Result * EKG 12 LEAD (12/09/2024 5:47 PM CDT) Interpretation Normal sinus rhythm ST & T wave abnormality, consider inferior ischemia Abnormal ECG No previous ECGs available 1mm lateral ST seg dip no previous for comparison [facility] Ventricular Rate 79 BPM [facility] NOW Atrial Rate 79 BPM [facility] NOW P-R Interval 160 ms [facility] NOW QRS Duration 98 ms [facility] NOW QT 398 ms [facility] NOW QTc 456 ms BEYOND NOW P [place] 38 degrees BEYOND NOW R [place] 16 degrees BEYOND NOW T [place] 29 degrees BEYOND NOW 12/09/2024 5:47 PM CDT 12/09/2024 6:40 PM CDT Christie JOLLEY EKG ORD Final Result Performing Organization Address City/[facility]/ZIP Co de Phone Number [facility] NOW [place], [place] * CWS PATH REVIEW HEMATOLOGY (12/09/2024 5:43 PM CDT) PATH COMMENT Comment 12/13/2024 7:26 AM CDT [facility] Comment:Please refer to Sanna pheral blood morphology [id number]. Reviewed by Marisol Castillo MT MS (ASCP) on 12/13/2024 Blood BLOOD SPECIMEN / Unknown Butterfly / Unknown 12/09/2024 5:43 PM CDT 12/09/2024 5:47 PM CDT [facility] Final Result [facility] [address] [place] [address], [place] * (ABNORMAL) TROPONIN T (HS) ACUTE W/2HR REFLEX (12/09/2024 5:43 PM CDT) [facility] Signature TROPONIN T HS 13(H) 6-10 ng/L ng/L 12/09/2024 8:18 PM CDT [facility] Blood BLOOD SPECIMEN / Unknown Butterfly / Unknown 12/09/2024 5:43 PM CDT 12/09/2024 5:[address] [facility] - 12/09/2024 8:18 PM CDT hs-cTnT (Elecsys Troponin T Gen 5) concentration (s) above the sex-specific 99th percentile (16 ng/L or greater for males or 11 ng/L or greater for females) are indicative of myocardial injury. If initial hs-cTnT <=100 ng/L at presentation, a 0h/2h ABSOLUTE (ng/L) delta change (rising or falling) of >=10 ng/L suggests a significant change, whereas a 0h/2h delta change <=3 ng/L suggests no significant change. If initial hs-cTnT >100 ng/L at presentation, a 0h/2h/ RELATIVE (percent, %) delta change of 20% is suggested to distinguish patients with acute vs. chronic myocardial injury. There are multiple etiologies that can cause hs-cTnT increases above the 99th percentile (myocardial injury) other than acute myocardial infarction. Clinical context and careful clinical evaluation are critical for diagnosis and risk-stratification. The diagnosis of acute myocardial infarction requires a rising and/or falling pattern in hs-cTnT concentrations with at least one value above the sex-specific 99th percentile PLUS at least one of the following clinical criteria: ischemic symptoms, new or presumed new significant ST-T wave changes or new LBBB, development of pathological Q waves, imaging evidence of new loss of viable myocardium or new regional wall motion abnormality, or identification of intracoronary atherothrombosis or an acute angiographic culprit on coronary angiography. In appropriate low-risk patients with a non-ischemic electrocardiogram without active chest pain with a symptom onset >3-hours without recurrence, a single initial hs-cTnT<6 ng/L identifies patient with a very low risk in emergency department patient population. Christie JOLLEY CHEMISTRY Final Result [facility] [address] [place] [address] * (ABNORMAL) CBC WITH AUTO DIFFERENTIAL (12/09/2024 5:43 PM CDT) WHITE BLOOD COUNT 9.7 4.5 - 11.0 thou/cu mm 12/09/2024 6:25 PM CDT [facility] RED BLOOD COUNT 2.33(L) 4.00 - 5.20 mil/cu mm 12/09/2024 6:25 PM CDT [facility] HEMOGLOBIN 5.5(LL) 12.0 - 16.0 g/dL 12/09/2024 6:25 PM T [facility] HEMATOCRIT 21.2(L) 33.0 - 51.0 % 12/09/2024 6:25 PM T [facility] MCV 91 80 - 100 fL 12/09/2024 6:25 PM T [facility] MCH 23.6(L) 26.0 - 34.0 pg 12/09/2024 6:25 PM T [facility] MCHC 25.9(L) 32.0 - 36.0 g/dL 12/09/2024 6:25 PM [facility] RDW 22.8(H) 11.5 - 15.5 % 12/09/2024 6:25 PM [facility] PLATELET COUNT 648(H) 140 - 440 thou/cu mm 12/09/2024 6:25 PM T [facility] MPV 9.2 6.5 - 11.0 fL 12/09/2024 6:25 PM T [facility] Blood BLOOD SPECIMEN / Unknown Butterfly / Unknown 12/09/2024 5:43 PM CDT 12/09/2024 5:47 PM CDT us Christie JOLLEY HEMATOLOGY Final Result [facility] [address] [place] [address] * (ABNORMAL) RED CELL MORPHOLOGY (12/09/2024 5:43 PM CDT) [facility] POLYCHROMASIA Slight 12/09/2024 6:18 PM CDT [facility] TARGET CELLS Few 12/09/2024 6:18 PM CDT [facility] TEARDROP CELLS Few 12/09/2024 6:18 PM CDT [facility] RBC COMMENT Present(A) RBC morphology appears normal, RBC morphology within normal limits for newborns. 12/09/2024 6:18 PM CDT [facility] Blood BLOOD SPECIMEN / Unknown Butterfly / Unknown 12/09/2024 5:43 PM CDT 12/09/2024 5:47 PM CDT Christie JOLLEY HEMATOLOGY Final Result Performing Organization Address City/[facility]/ZIP Co de Phone Number [facility] [address] [place] [address] * (ABNORMAL) PLATELET ESTIMATE (12/09/2024 5:43 PM CDT) [facility] PLATELET ESTIMATE Increased (A) Adequate, No estimate 12/09/2024 6:18 PM CDT [facility] Blood BLOOD SPECIMEN / Unknown Butterfly / Unknown 12/09/2024 5:43 PM CDT 12/09/2024 5:47 PM CDT Christie JOLLEY HEMATOLOGY Final Result [facility] [address] [place] [address] * EXTRA TUBE BLUE (12/09/2024 5:43 PM CDT) Blood BLOOD SPECIMEN / Unknown Butterfly / Unknown 12/09/2024 5:43 PM CDT 12/09/2024 5:47 PM CDT [facility] LABORAT[facility] Final Result [facility] [address] [place] [address] * (ABNORMAL) MANUAL DIFFERENTIAL (12/09/2024 5:43 PM CDT) % NEUTROPHILS 80.0 % 12/09/2024 6:18 PM CDT [facility] % LYMPHOCYTES 13.0 % 12/09/2024 6:18 PM CDT [facility] % MONOCYTES 6.0 % 12/09/2024 6:18 PM CDT [facility] % EOSINOPHILS 0.0 % 12/09/2024 6:18 PM CDT [facility] % BASOPHILS 1.0 % 12/09/2024 6:18 PM CDT [facility] NEUTROPHILS ABSOLUTE 7.8(H) 1.7 - 7.0 thou/cu mm 12/09/2024 6:18 PM CDT [facility] LYMPHOCYTES ABSOLUTE 1.3 0.9 - 2.9 thou/cu mm 12/09/2024 6:18 PM CDT [facility] MONOCYTES ABSOLUTE 0.6 <0.9 thou/cu mm 12/09/2024 6:18 PM CDT [facility] EOSINOPHILS ABSOLUTE 0.0 <0.5 thou/cu mm 12/09/2024 6:18 PM CDT [facility] BASOPHILS ABSOLUTE 0.1 <0.3 thou/cu mm 12/09/2024 6:18 PM CDT [facility] Blood BLOOD SPECIMEN / Unknown Butterfly / Unknown 12/09/2024 5:43 PM CDT 12/09/2024 5:47 PM CDT Christie JOLLEY HEMATOLOGY Final Result [facility] [address] [place] [address] * (ABNORMAL) IRON PLUS IRON BINDING CAP (12/09/2024 5:43 PM CDT) Pathologist [facility] IRON 12(L) 37 - 145 ug/dL 12/10/2024 12:47 PM CDT [facility] UIBC (UNSATURATED) 324 112 - 347 ug/dL 12/10/2024 12:47 PM CDT [facility] IRON BINDING CAPACITY 336 250 - 400 ug/dL 12/10/2024 12:47 PM CDT [facility] IRON,% SATURATION 4(L) 14 - 50 % 12/10/2024 12:47 PM CDT [facility] Blood BLOOD SPECIMEN / Unknown Butterfly / Unknown 12/09/2024 5:43 PM CDT 12/09/2024 5:47 PM CDT Anuradha Bueno MD CHEMISTRY Final R esult [facility] [address] [place] [id number], * ETHANOL SERUM OR PLASMA (12/09/2024 5:43 PM CDT) ETHANOL <0.010 <0.010 g/dL 12/09/2024 6:07 PM CDT [facility] Blood BLOOD SPECIMEN / Unknown Butterfly / Unknown 12/09/2024 5:43 PM CDT 12/09/2024 5:47 PM CDT Christie JOLLEY CHEMISTRY Final Result [facility] [address] [place] [address] * PROTIME-INR (12/09/2024 5:43 PM CDT) INR 1.1 <1.3 12/10/2024 2:44 PM CDT [facility] PROTIME 12.4 10.6 - 12.4 sec 12/10/2024 2:44 PM CDT [facility] Blood BLOOD SPECIMEN / Unknown Butterfly / Unknown 12/09/2024 5:43 PM CDT 12/09/2024 5:[address] [facility] - 12/10/2024 2:44 PM CDT Therapeutic Range 2.0-3.0 for most anticoagulated patients 2.5-3.5 or 4.0 for high risk patients The INR is only used for patients on stable oral anticoagulant therapy. It makes no significant contribution to the diagnosis or treatment of patients whose Protime is prolonged for other reasons. INR results are increased when heparin levels exceed 1.0 U/mL, which corresponds to an aPTT >125 seconds if the patient is on UFH. Ebonie Rich DO HEMATOLOGY Final Result [facility] [address] [place], [place] [id number] * (ABNORMAL) PRO-BNP (12/09/2024 5:43 PM CDT) [facility] PRO-BNP 211(H) <125 pg/mL 12/09/2024 8:18 PM CDT [facility] Blood BLOOD SPECIMEN / Unknown Butterfly / Unknown 12/09/2024 5:43 PM CDT 12/09/2024 5:[address] [facility] - 12/09/2024 8:18 PM CDT The following cut-points have been suggested for the use of proBNP for the diagnostic evaluation of heart failure (HF) in patient with acute dyspnea. Patients with eGFR >= 60 Diagnosis (rule in CHF) <50 Years Old 450 pg/mL 50 - 75 Years Old 900 pg/mL >75 Years Old 1800 pg/mL Exclusion (rule out CHF) Age Independent 300 pg/mL A cutoff of 1200 pg/mL for patients with an eGFR <60 yields a diagnostic sensitivity of 89% and specificity of 72% for acute congestive heart failure. Christie JOLLEY SEND OUTS Final Result [facility] [address] [place] [address] * Haptoglobin AM (12/09/2024 5:43 PM CDT) Haptoglobin 163 30 - 200 mg/dL 12/10/2024 4:55 PM CDT [facility] Blood BLOOD SPECIMEN / Unknown Butterfly / Unknown 12/09/2024 5:43 PM CDT 12/09/2024 5:47 PM CDT Anuradha Bueno MD CHEMISTRY Final R [facility] Performing Organization Address City/[facility]/ZIP Co de Phone Number [facility] [address] [address], [place] * (ABNORMAL) FERRITIN (12/09/2024 5:43 PM CDT) Pathologist [facility] FERRITIN 10.2(L) 15.0 - 150.0 ng/mL 12/10/2024 12:56 PM CDT [facility] Blood BLOOD SPECIMEN / Unknown Butterfly / Unknown 12/09/2024 5:43 PM CDT 12/09/2024 5:47 PM CDT Anuradha Bueno MD CHEMISTRY Final R [facility] Performing Organization Address City/[facility]/ZIP Co de Phone Number [facility] [address] [place] [phone], [place] * (ABNORMAL) BASIC METABOLIC PANEL (12/09/2024 5:43 PM CDT) SODIUM 141 136 - 145 mmol/L 12/09/2024 6:24 PM CDT [facility] POTASSIUM 2.3(LL) 3.5 - 5.1 mmol/L 12/09/2024 6:24 PM CDT [facility] CHLORIDE 105 98 - 107 mmol/L 12/09/2024 6:24 PM T [facility] CO2,TOTAL 26 22 - 29 mmol/L 12/09/2024 6:24 PM [facility] ANION GAP 10 5 - 18 12/09/2024 6:24 PM [facility] GLUCOSE 113(H) 70 - 99 mg/dL 12/09/2024 6:24 PM [facility] CALCIUM 9.0 8.8 - 10.4 mg/dL 12/09/2024 6:24 PM [facility] Comment: Reference ranges for this test were updated on 07/30/2024 to reflect our healthy population more accurately. Reference range changes are not retroactively applied to results, but previous results using the same methodology can be interpreted in the context of the new reference range. BUN 8 6 - 20 mg/dL 12/09/2024 6:24 PM [facility] CREATININE 0.36(L) 0.50 - 0.90 mg/dL 12/09/2024 6:24 PM [facility] BUN/CREAT RATIO 22(H) 10 - 20 6:24 PM [facility] eGFR >90 >90 mL/min/1. 73m2 12/09/2024 6:24 PM [facility] Comment:As of 2021, eG FR is calculated by the CKD-EPI creatinine equation without race adjustment. eGFR can be influenced by muscle mass, exercise, and diet. The reported eGFR is an estimation only and is only applicable if the renal function is stable. Blood BLOOD SPECIMEN / Unknown Butterfly / Unknown 12/09/2024 5:43 PM CDT 12/09/2024 5:47 PM CDT Christie JOLLEY CHEMISTRY Final Result [facility] [address] [place] [address] from Last 3 Months Insurance [facility] Member Subscriber Plan / Payer (Ef fective 2024-Present) Name:Hannah Jackson Relation to Subscriber:Self Name:Hannah Jackson Payer ID:Not on file Group ID:Not on file Type:Not on file Address: FOR [employer] Advance Directives * Full Code (Latest Code Status on File) Date Activated Date Inactivated Comments 12/10/2024 12:18 AM 12/10/2024 8:53 PM Question Answer Comments Code Status Discussion: Reviewed Preferences Care Teams Distribution Clerk Relationship Specialty Start Date End Date Nonstaff, Doctor NON STAFF DOCTOR PCP - General 06/01/12
[2025-01-08] MEDS: MORPHINE 4 MG/ML INJ IVP (20:02)
[2025-01-08] MEDS: 0.9 % SODIUM CHLORIDE 500 ML 500 ML 1000 ML IV (20:07)
[2025-01-08 20:15] VITALS: PULSE 101; O2SAT 97
[2025-01-08 20:30] VITALS: PULSE 93; O2SAT 94
[2025-01-08 20:31] VITALS: BP 132/80; PULSE 95; O2SAT 97
[2025-01-08 20:45] VITALS: PULSE 95; O2SAT 94
== END 2025-01-08 21:11 | disposition home or self-care (01) ==
PROVIDERS: Emergency Provider Family Medicine
DX: R10.84 Generalized abdominal pain (principal); D64.9 Anemia, unspecified; I73.1 Thromboangiitis obliterans [Buerger's disease]; N20.0 Calculus of kidney
CPT/HCPCS: 36415; 74177; 80048; 80076; 83690; 85025; 96361; 96374; 99284; 99285; J2270; J7030; Q9967

== ENCOUNTER 2025-01-13 07:57 | Outpatient (CLI) | payer OTHER, SELFPAY ==
--- NOTE | 2025-01-13 09:13 | P.ANES_ITS ---
Anesthesia Charges Start Date/Time Anesthesia Start Date: 01/13/25 Anesthesia Start Time: 08:57 Stop Date/Time Anesthesia Stop Date: 01/13/25 Anesthesia Stop Time: 09:11 Coding CPT Codes CPT Codes: ANES UPR GI NDSC PX NOS - 70861 ([id number]) P2 - PATIENT W/MILD SYST DISEASE, QK - SENIOR CLINICAL DATA MANAGER 2-4 CNCRNT ANES PROC, QX - FABRIC STRETCHER SVC W/ MD MED DIRECTION
--- NOTE | 2025-01-13 09:13 | W.ANESCHARGE ---
Anesthesia Charges Start Date/Time Anesthesia Start Date: 01/13/25 Anesthesia Start Time: 08:57 Stop Date/Time Anesthesia Stop Date: 01/13/25 Anesthesia Stop Time: 09:11 Coding CPT Codes CPT Codes: ANES UPR GI NDSC PX NOS - 21989 ([id number]) P2 - PATIENT W/MILD SYST DISEASE, QK - AS400 DEVELOPER 2-4 CNCRNT ANES PROC, QX - EATING DISORDER SPECIALIST SVC W/ MD MED DIRECTION
--- NOTE | 2025-01-13 09:14 | P.ANES_ITS ---
Anesthesia Charges Start Date/Time Anesthesia Start Date: 01/13/25 Anesthesia Start Time: 08:57 Stop Date/Time Anesthesia Stop Date: 01/13/25 Anesthesia Stop Time: 09:11 Coding CPT Codes CPT Codes: ANES UPR GI NDSC PX NOS - 79545 ([id number]) QK - IRRIGATION EQUIPMENT INSTALLER 2-4 CNCRNT ANES PROC, QX - PLATE KEEPER SVC W/ MD MED DIRECTION, P2 - PATIENT W/MILD SYST DISEASE
--- NOTE | 2025-01-13 09:14 | W.ANESCHARGE ---
Anesthesia Charges Start Date/Time Anesthesia Start Date: 01/13/25 Anesthesia Start Time: 08:57 Stop Date/Time Anesthesia Stop Date: 01/13/25 Anesthesia Stop Time: 09:11 Coding CPT Codes CPT Codes: ANES UPR GI NDSC PX NOS - 94020 ([id number]) QK - SENIOR DYNAMICS CRM DEVELOPER 2-4 CNCRNT ANES PROC, QX - COMMUNICATIONS CONTROLLER SVC W/ MD MED DIRECTION, P2 - PATIENT W/MILD SYST DISEASE
== END 2025-01-13 07:58 | disposition home or self-care (01) ==
LOC: OP CLINIC 07:58
PROVIDERS: PCP Family Medicine; Visit Provider Surgery
DX: K92.2 Gastrointestinal hemorrhage, unspecified (principal); K22.2 Esophageal obstruction
CPT/HCPCS: 00731; 43200; J2704; J3010

== ENCOUNTER 2025-02-07 17:25 | Emergency (ER) | payer MEDICAID, SELFPAY ==
[2025-02-07] VITALS (11 sets, daily range): BP systolic 105–138; BP diastolic 60–95; PULSE 77–116; RESP 12–22; TEMP 37.4; O2SAT 92–100; BMI 22.7
--- NOTE | 2025-02-07 18:00 | CRLHL7_ITS ---
For Patients: As a result of the Cures Act, medical imaging exams and procedure reports are released immediately into your electronic medical record. You may view this report before your referring provider. If you have questions, please contact your health care provider. Indication: BUERGERS DISEASE, INFECTED 2/3 DIGITS. Technique: Right hand 3 views. Comparison: None. Findings: Alignment is normal. 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 Likely prior amputation of the 2nd digit at the distal phalanx base. There is patchy lucency of the 2nd and 3rd digits with extensive surrounding soft tissue irregularity. Overlying external material about the 2nd-4th digits obscures fine osseous and soft tissue detail. Moderate diffuse degenerative changes of the interphalangeal joints. Impression: There is patchy osseous lucency of 2nd and 3rd digits. In the setting of reported infections, this is concerning for possible osteomyelitis. Consider further evaluation with an MRI. Dictated by Buck Puente MD @ 02/07/2025 6:57:33 PM (Electronically Signed)
--- NOTE | 2025-02-07 18:06 | ED.GENADULT ---
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 She has bandages on many of her fingers, most of which she has not recurred moved for quite some time. Specifically on the right hand on the 2nd and 3rd finger she has bandages which she has not removed she says for months. Over the past week she has developed pain and now redness and an odor particularly of the 2nd finger, she is concerned about infection. She denies systemic complaints such as fevers, chills, vomiting. She continues to smoke, though she has been trying to cut down. Seen here a month ago for unrelated complaints, at that time she was supposed to have seen vascular surgery, she tells me she has not been able to see them yet but does have an appointment made with vascular surgery at [place] for February 27. Related Data Home Medications ?Medication ?Instructions ?Recorded ?Confirmed pantoprazole 40 mg tablet,delayed 40 mg PO BID 01/08/25 02/07/25 release Previous Rx's ?Medication ?Instructions ?Recorded ondansetron 8 mg disintegrating 8 mg PO TID PRN nausea and 01/23/25 tablet vomiting #30 tabs oxycodone 5 mg tablet 5 mg PO BID PRN pain #40 tabs 01/31/25 Allergies Allergy/AdvReac Type Severity Reaction Status Date / Time ibuprofen Allergy Unknown Facial Verified 02/07/25 17:42 Edema Review of Systems Status of ROS: Reports: 6 or more systems reviewed and unremarkable except as noted in History and below [facility] Medical History Iron deficiency anemia due to chronic blood loss ?D50.0 - Iron deficiency anemia secondary to blood loss (chronic) (ICD-10) GERD (gastroesophageal reflux disease) ?K21.9 - Gastro-esophageal reflux disease without esophagitis (ICD-10) Major depression, recurrent ?F33.9 - Major depressive disorder, recurrent, unspecified (ICD-10) FLOR positive ?R76.8 - Other specified abnormal immunological findings in serum (ICD-10) Osteochondrosis ?M93.90 - Osteochondropathy, unspecified of unspecified site (ICD-10) Environmental allergies ?Z91.09 - Other allergy status, other than to drugs and biological substances (ICD-10) Tobacco abuse ?Z72.0 - Tobacco use (ICD-10) Esophageal abnormality ?K22.9 - Disease of esophagus, unspecified (ICD-10) Thromboangiitis obliterans (Buerger's disease) ?I73.1 - Thromboangiitis obliterans [Buerger's disease] (ICD-10) Surgical History History of cholecystectomy (2006) ?Z90.49 - Acquired absence of other specified parts of digestive tract (ICD-10) History of tubal ligation ?Z98.51 - Tubal ligation status (ICD-10) Family History Mother Thyroid disease High blood pressure Social History Narrative: , two kids, 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, no EtOH, smoker What is your current living situation?: I presently have a place to live In the past 12 months, utilities in danger of being shut off: no In past 12 months, lack of transportation kept you from medical appts, meetings, work, or getting things needed for daily living: no In the past 12 mos, have been you worried that your food would run out before you had money to buy more?: never true In the past 12 mos, the food you bought just didn't last and you didn't have money to buy more?: never true Smoking Status: Current every day smoker What tobacco products do you use: cigarettes Smoking packs per day: 0.3 Smoking cigarettes per day: 6.0 Do you use any of these nicotine containing products: None Second hand tobacco smoke exposure: Yes How often do you have a drink containing alcohol: never How often do you have six or more drinks on one occasion: Never AUDIT-C Alcohol total score: 0 Non-prescribed substance use: denies use How often does anyone, including family, friends and others, physically hurt you: never How often does anyone, including family, friends and others, insult or talk down to you: never How often does anyone, including family, friends and others, threaten you with harm: never How often does anyone, including family, friends and others, scream or curse at you: never service: No Exam Narrative: Exam Narrative: Vital signs reviewed In general, alert, nontoxic woman, she looks significantly older than her stated age. Head: Normocephalic, atraumatic. Eyes: Sclera clear. Pupils equal and reactive. ENT: Mucous membranes moist. Neck: Supple without adenopathy. Heart: Regular rate and rhythm without murmur. Lungs: Clear. No increased work of breathing, crackles or wheezes. Abdomen: Soft, nontender to palpation. Extremities: Multiple bandaged fingers, multiple fingers which are stented in length, dry gangrene noted in the left index finger without evident infection. On the right, she has bandages completely covering the index and 3rd fingers, erythema noted in the palmar aspect of the hand to the mid palm at the base of the 3rd and 2nd fingers. She complains of severe pain in these 2 fingers and was not willing to let me take the bandages off. Neurologic: Alert, conversant. Speech fluent, face symmetric. Moves all extremities equally. Skin: Warm and dry. Affect: Normal. Const: Vital Signs, click to edit/add: Vital Signs - 24 hr 02/07/25 17:33 02/07/25 20:37 02/07/25 20:45 Temperature 99.3 F Pulse Rate 80 77 Pulse Rate [Right Pulse Oximeter] 116 H Respiratory Rate 18 Blood Pressure Blood Pressure [Le ft Upper Arm] 105/60 Pulse Oximetry 100 98 [facility] 02/07/25 21:00 02/07/25 21:15 02/07/25 21:30 Temperature Pulse Rate 88 87 87 Pulse Rate [Right Pulse Oximeter] Respiratory Rate 13 Blood Pressure Blood Pressure [Le ft Upper Arm] Pulse Oximetry 97 97 96 Oxygen Delivery Ms thod 02/07/25 21:45 02/07/25 22:00 02/07/25 22:08 Temperature Pulse Rate 84 86 101 H Pulse Rate [Right Pulse Oximeter] Respiratory Rate 12 13 17 Blood Pressure 138/95 H Blood Pressure [Le ft Upper Arm] Pulse Oximetry 96 97 92 [facility] 02[facility]07/25 22:15 02/07/25 22:30 Temperature Pulse Rate 89 93 Pulse Rate [Right Pulse Oximeter] Respiratory Rate 22 13 Blood Pressure Blood Pressure [Le ft Upper Arm] Pulse Oximetry 97 94 Oxygen Delivery Me thod Course Course ED Course: She says she will not be able to do anything with the bandages unless she has something for pain control. Will place an IV, I am going to give her mg of Versed for anxiolysis, 25 mcg of fentanyl will see if we get enough pain control with that to remove the bandages. I have ordered an x-ray, labs to include blood cultures, lactate, procalcitonin. She is tachycardic but otherwise no markers of sepsis at this time. Anticipate she will need transfer for treatment of this, diagnostic considerations would include gangrene, osteomyelitis, cellulitis in the setting of thromboangiitis obliterans. X-rays reviewed, radiology report reviewed, concern for osteomyelitis secondary to lucency in the bones. No free air. Labs most notable for a mildly elevated white blood cell count 13.8, hemoglobin 10.7, most recently 9.9 on May 10. Normal platelets. Her potassium was low at 2.7, Mag was normal at 2.2. Potassium replaced with oral potassium as well as IV. Gap is 6, BUN 12, creatinine of 0.3. Lactate is normal at 0.8, LFTs unremarkable aside from an alk-phos of 635. Procalcitonin is 17.6. Initial phone calls were to [facility], I discussed her care with the hospitalist, the orthopedic surgeon on-call as well as the vascular surgeon on-call. Ortho ultimately felt patient would be served better at a facility with Hand specialists on-call. I was able to find a bed at [facility] for her. She has had Zosyn and vancomycin for antibiotics. She had oxycodone orally for additional pain control. A dressing was placed on the right hand. Vital Signs Vital signs: Initial Vital Signs Temperature 99.3 F 02/07/25 17:33 Temperature Source Temporal Artery Scan 02/07/25 17:33 Pulse Rate 116 H 02/07/25 17:33 Pulse Rhythm Regular 02/07/25 17:33 Pulse Strength 3+ Normal 02/07/25 17:33 Respiratory Rate 18 02/07/25 17:33 Blood Pressure 105/60 02/07/25 17:33 Blood Pressure Mean 75 02/07/25 17:33 Blood Pressure Position Sitting 02/07/25 17:33 Pulse Oximetry 100 02/07/25 17:33 Oxygen Delivery Method Room Air 02/07/25 17:33 Vital Signs Temperature 99.3 F 02/07/25 17:33 Pulse Rate 116 H 02/07/25 17:33 Respiratory Rate 18 02/07/25 17:33 Blood Pressure 105/60 02/07/25 17:33 Pulse Oximetry 100 02/07/25 17:33 Oxygen Delivery Method Room Air 02/07/25 17:33 Temperature 99.3 F 02/07/25 17:33 Pulse Rate 93 02/07/25 22:30 Respiratory Rate 13 02/07/25 22:30 Blood Pressure 138/95 H 02/07/25 22:08 Pulse Oximetry 94 02/07/25 22:30 Oxygen Delivery Method Room Air 02/07/25 17:33 Medications Administered Medications: Discontinued Medications Generic Name Dose Route Start Last Admin Trade Name Freq PRN Reason Stop Dose Admin Fentanyl 25 mcg 02/07/25 17:59 02/07/25 18:36 Fentanyl 100 Mcg/2 Ml Inj IVP 02/07/25 18:00 25 mcg ONCE ONE Administration Potassium Chloride 10 meq in 100 mls @ 100 mls/hr 02/07/25 19:30 02/07/25 22:27 Potassium Chloride IVPB 02/07/25 21:59 Infused Q90M KARINE Infusion Piperacillin Sod/Tazobactam 100 mls @ 100 mls/hr 02/07/25 19:35 02/07/25 22:27 Sod 3.375 gm/ Sodium Chloride IVPB 02/07/25 19:36 Infused ONCE ONE Infusion Vancomycin/PEG/NADA/Lysine/Water 1 gm in 200 mls @ 200 mls/hr 02/07/25 20:49 02/07/25 22:59 Vancomycin 1 Gm/200 Ml IVPB 02/07/25 21:48 200 mls/hr ONCE ONE Administration Protocol Midazolam HCl 1 mg 02/07/25 17:59 02/07/25 18:35 Midazolam Hcl 1 Mg/Ml Inj IVP 02/07/25 18:00 1 mg ONCE ONE Administration Oxycodone HCl 5 mg 02/07/25 19:20 02/07/25 20:02 Oxycodone 5 Mg Tablet PO 02/07/25 19:21 5 mg ONCE ONE Administration Potassium Bicarbonate 50 meq 02/07/25 19:20 02/07/25 20:04 Potassium Bicarb 25 Meq Effervescent Tab PO 02/07/25 19:21 50 meq ONCE ONE Administration Medical Decision Making Lab Data Labs: Lab Results 02/07/25 Range/Units 18:12 WBC 13.82 H (4.50-11.00) K/uL RBC 3.03 L (4.00-5.20) m/uL Hgb 10.7 L (12.0-16.0) gm/dL Hct 34.0 (33.0-51.0) % MCV 112 H (80-100) fL MCH 35 H (26-34) pg MCHC 32 (32-36) gm/dL RDW Coeff of Jolanta 15.5 (11.5-15.5) % Plt Count 424 (140-440) K/uL Neut % (Auto) 89.2 H (42.0-72.0) % Lymph % (Auto) 6.7 L (20-44) % [place] % (Auto) 3.2 (0.0-11.0) % Eos % (Auto) 0.4 (0.0-7.0) % Baso % (Auto) 0.1 (0.0-3.0) % Neut # (Auto) 12.30 H (1.7-7.0) K/uL Lymph # (Auto) 0.90 (0.90-2.90) K/uL [place] # (Auto) 0.40 (0.00-0.90) K/UL Eos # (Auto) 0.10 (0.00-0.50) K/uL Baso # (Auto) 0.00 (0.00-0.30) K/uL Abs Immat Gran (auto) 0.10 (0.00-0.30) K/uL Imm/Tot Granulo (auto) 0.4 % Sodium 137 (135-149) mmol/L Potassium 2.7 L* (3.6-5.1) mmol/L Chloride 101 (96-114) mmol/L Carbon Dioxide 30 (20-32) mmol/L Anion Gap 6 L (7-15) mEq/L BUN 12 (5-24) mg/dL Creatinine 0.3 L (0.5-1.5) mg/dL Estimated Creat Clear 178.70 Estimated GFR 133 ml/min Glucose 100 (60-115) mg/dL Lactate 0.8 (0.5-1.9) mmol/L Calcium 8.5 (8.4-10.6) mg/dL Magnesium 2.2 (1.5-2.6) mg/dL Total Bilirubin 0.4 (0.1-1.5) mg/dL Direct Bilirubin 0.4 (0.0-0.5) mg/dL AST 20 (12-35) U/L ALT 22 (4-35) U/L Alkaline Phosphatase 635 H (40-150) U/L Total Protein 6.1 (6.0-8.3) g/dL Albumin 2.8 L (3.3-5.0) g/dL Procalcitonin 17.60 H (<0.50) ng/mL Imaging Data X-ray right hand: Attestation: I have reviewed the pertinent imaging results. Radiologist's impression: Ordering Physician: Nellie Lee M.D. Date of Service: 02/07/25 Procedure(s): XR hand RT min 3V Accession Number(s): [id number] cc: Nellie Lee M.D.; Anish Locke M.D.~ For Patients: As a result of the Cures Act, medical imaging exams and procedure reports are released immediately into your electronic medical record. You may view this report before your referring provider. If you have questions, please contact your health care provider. Indication: BUERGERS DISEASE, INFECTED 2/3 DIGITS. Technique: Right hand 3 views. Comparison: None. Findings: Alignment is normal. 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 Likely prior amputation of the 2nd digit at the distal phalanx base. There is patchy lucency of the 2nd and 3rd digits with extensive surrounding soft tissue irregularity. Overlying external material about the 2nd-4th digits obscures fine osseous and soft tissue detail. Moderate diffuse degenerative changes of the interphalangeal joints. Impression: There is patchy osseous lucency of 2nd and 3rd digits. In the setting of reported infections, this is concerning for possible osteomyelitis. Consider further evaluation with an MRI. Dictated by Buck Puente MD @ 02/07/2025 6:57:33 PM Discharge Plan Discharge Clinical Impression: Gangrene of finger of right hand, Buerger's disease, Hypokalemia Patient Disposition: Xfer Other Condition: Stable Prescriptions: No Action ondansetron 8 mg tablet,disintegrating 8 mg PO TID PRN (Reason: nausea and vomiting) Qty: 30 1RF pantoprazole 40 mg tablet,delayed release (DR/EC) 40 mg PO BID oxycodone 5 mg tablet 5 mg PO BID PRN (Reason: pain) Qty: 40 0RF Rx Instructions: Chronic pain, not acute Stand Alone Forms: MyHealth Info Instructions
[2025-02-07 18:28] LABS: Lactate Sepsis w/Reflex* 0.8 mmol/L (0.5-1.9)
[2025-02-07 18:34] LABS: Basophils Percent Auto 0.1 % (0.0-3.0); Eosinophils Percent Auto 0.4 % (0.0-7.0); Hemoglobin* 10.7 gm/dL (12.0-16.0); Immature Granulocytes Pct Auto 0.4 %; Lymphocytes Percent Auto 6.7 % (20-44); Mean Corpuscular HGB Conc 32 gm/dL (32-36); Mean Corpuscular Hemoglobin 35 pg (26-34); Mean Corpuscular Volume 112 fL (80-100); Monocytes Percent Auto 3.2 % (0.0-11.0); Neutrophils Percent Auto 89.2 % (42.0-72.0); Platelet Count* 424 K/uL (140-440); RDW Coefficient of Variation % 15.5 % (11.5-15.5); Red Blood Count 3.03 m/uL (4.00-5.20); White Blood Count* 13.82 K/uL (4.50-11.00)
[2025-02-07] MEDS: MIDAZOLAM HCL 1 MG/ML inj IVP (18:35)
[2025-02-07] MEDS: fentaNYL 100 MCG/2 ML inj 25 MCG IVP (18:36)
[2025-02-07 18:40] LABS: Slide Review Reflex No
[2025-02-07 18:48] LABS: Albumin* 2.8 g/dL (3.3-5.0); Chloride* 101 mmol/L (96-114); Sodium* 137 mmol/L (135-149)
[2025-02-07 18:50] LABS: Anion Gap 6 mEq/L (7-15); Blood Urea Nitrogen* 12 mg/dL (5-24); Carbon Dioxide* 30 mmol/L (20-32); Creatinine* 0.3 mg/dL (0.5-1.5); Estimated Glomerular Filt Rate 133 ml/min
[2025-02-07 18:51] LABS: Alanine Aminotransferase* 22 U/L (4-35); Alkaline Phosphatase* 635 U/L (40-150); Aspartate Amino Transferase* 20 U/L (12-35); Bilirubin Direct* 0.4 mg/dL (0.0-0.5); Bilirubin Total* 0.4 mg/dL (0.1-1.5); Calcium* 8.5 mg/dL (8.4-10.6); Glucose* 100 mg/dL (60-115); Magnesium* 2.2 mg/dL (1.5-2.6); Total Protein* 6.1 g/dL (6.0-8.3)
[2025-02-07 19:16] LABS: Potassium* 2.7 mmol/L (3.6-5.1)
[2025-02-07] MEDS: OXYCODONE 5 MG TABLET PO (20:02)
[2025-02-07] MEDS: POTASSIUM BICARB 25 MEQ EFFERVESCENT TAB 50 MEQ PO (20:04)
[2025-02-07] MEDS: POTASSIUM CHLORIDE 10 MEQ/100 ML PIGGYBACK 100 MEQ IVPB ×2 (20:05→21:12)
[2025-02-07] MEDS: PIPERACILLIN/TAZOBACTAM 3.375 GM in 0.9 % SODIUM CHLORIDE Mini-bag 100 ML IVPB (21:08)
[2025-02-07] MEDS: VANCOMYCIN 1 GM/200 ML 1 GM/200 ML PIGGYBACK IVPB (22:59)
== END 2025-02-07 23:18 | disposition other institution (70) ==
PROVIDERS: Emergency Provider Emergency Medicine; PCP Family Medicine
DX: I73.1 Thromboangiitis obliterans [Buerger's disease] (principal); R00.0 Tachycardia, unspecified; E87.6 Hypokalemia
CPT/HCPCS: 36415; 73130; 80048; 80076; 83605; 83735; 84145; 85025; 87040; 93005; 94761; 96365; 96366; 96368; 96375; 99284; 99285; A9270; J2250; J2543; J3010; J3372; J3480

== ENCOUNTER 2025-02-07 22:50 | Outpatient (CLI) | payer MEDICAID, SELFPAY | END 2025-02-07 22:51 | disposition home or self-care (01) | LOC: AMB 02-13 09:14 | PROVIDERS: PCP Family Medicine; Visit Provider Emergency Medicine | DX: I96 Gangrene, not elsewhere classified (principal); I73.1 Thromboangiitis obliterans [Buerger's disease]; E87.6 Hypokalemia | CPT/HCPCS: A0425; A0434 ==

== ENCOUNTER 2025-02-21 14:40 | Emergency (ER) | payer MEDICAID, SELFPAY ==
--- OUTSIDE RECORDS SUMMARY | 2025-02-08 00:26 | XMS_ITS | Encounter Summary ---
Author Organization [facility] Address [address] [place] [address] Care Team Providers Care Tax Record Clerk Name Role Phone Unavailable Primary Care Provider Unavailabl e Reason for Referral * (Routine) - Open Specialty Diagnoses / Procedures Referred By Contac t Referred To Contact Molly Epps PA-C [address] [place] [address] Phone: tel: fax: Radha Anthony MD [address] [place] [address] Phone: tel: fax: Referral ID Status Reason Start Date Expiration Date Visits Re quested Visits Authorized [id number] Open 02/16/2025 1 1 Question Answer Specify time frame for follow up? 1 Week Instructions to follow-up provider follow up hospitalization, consider podiatry consult * (Routine) - Authorized Specialty Diagnoses / Procedures Referred By Contac t Referred To Contact Gastroenterology Molly Epps PA-C [address] [place] [address] Phone: tel: fax: [facility] - [address] [place], [facility] [address] [place] [address] Phone: tel: fax: Referral ID Status Reason Start Date Expiration Date V isits Requested Visits Authorized [id number] Authorized 02/16/2025 1 1 Question Answer Specify time frame for follow up? 6 Weeks Instructions to follow-up provider follow up in 8 weeks for repeat EGD * (Routine) - Open Specialty Diagnoses / Procedures Referred By Contac t Referred To Contact Lanie Sotelo DNP,STOVE INSTALLER [address] [id number] Phone: tel: fax: [place] [address] [facility] [address] [address] Phone: tel: fax: Referral ID Status Reason Start Date Expiration Date Visits Re quested Visits Authorized [id number] Open 02/14/2025 1 1 Question Answer Specify time frame for follow up? 2 Weeks Comments Call to make a follow-up appointment with Dr. Gutierrez (hand surgeon) for suture removal in [address] Gutierrez [phone] [address] [place] [address] * (Routine) - Open Specialty Diagnoses / Procedures Referred By Contac t Referred To Contact Procedures Dressing Change Lanie Sotelo DNP,STOVE INSTALLER [address] [place] [address] Phone: tel: fax: Referral ID Status Reason Start Date Expiration Date Visits Re quested Visits Authorized [id number] Open 02/14/2025 1 1 * (Routine) - Open Specialty Diagnoses / Procedures Referred By Contac t Referred To Contact Diagnoses Other acute osteomyelitis of right hand (HCC) Procedures Potassium, Serum Loly Castaneda PA-C [address] [facility] [address] [address] Phone: tel: fax: Referral ID Status Reason Start Date Expiration Date Visits Re quested Visits Authorized [id number] Open 02/27/2025 1 1 * (Routine) - Open Specialty Diagnoses / Procedures Referred By Aristides vega Referred To Contact Procedures Discharge Instructions Loly Castaneda PA-C [address] [facility] [address] [address] Phone: tel: fax: Referral ID Status Reason Start Date Expiration Date Visits Re quested Visits Authorized [id number] Open 02/13/2025 1 1 Reason for Visit * Inpatient Admission Specialty Diagnoses / Procedures Referred By Contamee vega Referred To Contact Diagnoses Osteomyelitis Referral ID Status Reason Start Date Expiration Date Visits Re quested Visits Authorized [id number] 1 1 Encounter Details Date Type Department Care Team (Latest Contact Info) Description 02/08/2025 12:26 AM CDT - 02/16/2025 4:00 PM CDT Hospital Encounter [id number] [place] [address] [place] [address] Yany Ingram MD [address] [place] [address] Anthony Coelho DO [address] [place] [address] Michelle Pickering MD [address] [place], [place] [id number] Osteomyelitis ([facility]) Discharge Disposition: Returning Home/Self Care Social History Tobacco Use Types Packs/Day Years Used Date Smoking Tobacco: Every Day Cigarettes Cigars Tobacco Cessation:Ready to Q uit: Yes; Counseling Given: Not Answered [facility] Utilities Answer Date Recorded In the past 12 months has th e [employer], gas, oil, or water company threatened to shut off services in your home? No 02/08/2025 Humiliation, Afraid, Rape, and Kick questionnair e Answer Date Recorded Within the last year, have y ou been afraid of your partner or ex-partner? No 02/08/2025 Within the last year, have y ou been humiliated or emotionally abused in other ways by your partner or ex-partner? No Within the last year, have y ou been kicked, hit, slapped, or otherwise physically hurt by your partner or ex-partner? No 02/08/2025 Within the last year, have y ou been raped or forced to have any kind of sexual activity by your partner or ex-partner? No 02/08/2025 Hunger Vital Sign Answer Date Recorded Within the past 12 months, y ou worried that your food would run out before you got the money to buy more. Never true 02/09/20 25 Within the past 12 months, t he food you bought just didn't last and you didn't have money to get more. Never true 02/08/2025 PRAPARE - Transportation Answer Date Re corded In the past 12 months, has l ack of transportation kept you from medical appointments or from getting medications? No 01/23 In the past 12 months, has l ack of transportation kept you from meetings, work, or from getting things needed for daily living? No 02/08/2025 Housing Stability Vital Sign Answer Mal e Recorded In the last 12 months, was t here a time when you were not able to pay the mortgage or rent on time? No 02/08/2025 In the past 12 months, how m any times have you moved where you were living? 0 02/08/2025 At any time in the past 12 m [facility], were you homeless or living in a fpc (including now)? No 02/08/2025 Comments No Sex and Gender Information Value Date Recorded Sex Assigned at Not on file Legal Sex Female 8:23 PM CDT Gender Identity Not on file Sexual Orientation Not on file documented as of this encounter Last Filed Vital Signs Vital Sign Reading Time Taken Comments Blood Pressure 140/102 02/16/2025 3:52 PM CDT Pulse 83 02/16/2025 3:52 PM CDT Temperature 36.7 C (98.1 F) 02/16/2025 3:52 PM CDT Respiratory Rate 16 02/16/2025 3:52 PM CDT Oxygen Saturation 99% 02/16/2025 3:52 PM CDT Inhaled Oxygen Concentration - - Weight 53.6 kg (118 lb 2.7 oz) 02/08/2025 1:04 A M CDT Height 154.9 cm (5' 1) 02/09/2025 9:00 AM CDT Body Mass Index 22.33 02/08/2025 1:04 AM CDT documented in this encounter Discharge Summaries * Molly Epps PA-C - 02/16/2025 3:47 PM CDT Images from the original note were not included. [facility] SUMMARY Patient Name: Hnanah Loo Date of : 1980 Attending Provider: Michelle Pickering MD Admission Date: 02/08/2025 Discharge Date: 02/16/2025 She will be discharged on 02/16/2025 to home. DISCHARGE DIAGNOSES: Please see bolded headings in hospital course below for discharge diagnoses. PCP TO DO: -- assess PO intake -- repeat electrolytes -- smoking cessation -- consider stress test HOSPITAL COURSE: Hannah Loo is a 45 y.o. 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 Admission protracted by duodenal strictures and PUD. Initial plan to stay another night to ensure PO intake w/o N/V, and electrolytes return to normal. Patient wanting to leave if electrolytes return to normal in the afternoon and tolerating lunch. On reassessment, no nausea, vomiting, or abdominal pain after lunch, and electrolytes WNL, therefore stable for DC late in the day. Patient instructed on reasons to return and understands her medical situation well. R Index Finger Osteomyelitis s/p Amputation 02/09/25 s/p palm I&D R Hand Cellulitis s/p I&D Palm Abscess 02/11/25 Sepsis 2/2 above, resolved Buerger's disease of R middle finger, L middle finger Transferred from [place]. On arrival vital signs with borderline tachycardia otherwise benign. Workup notable for leukocytosis, CRP 8.2, meeting sepsis criteria with tachycardia, leukocytosis and source of infection. On exam, right second digit with wet gangrene, left second and fifth digit with necrosis. Patient underwent amputation and I&D on 02/09, and another right knee 02/11. Started on IV Vanco and Zosyn, switch to PO once able to tolerate. Wound cultures growing MRSA and E. coli. Pathology concerning for possible residual OM. - Discharge Plan - Bactrim and Flagyl x4 weeks [03/10] per ID - pain meds: robaxin, Tylenol, PO dilaudid, gabapentin, Atarax - f/u with ID on 02/28 - f/u with plastic surgery in 2 weeks LA Grade D Esophagitis with stenosis Gastric Ulcer w/o stigmata Pyloric Channel Ulcer Severe Duodenitis with duodenal ulcer w/o stigmata Multiple Duodenal Strictures Patient endorses vomiting and abdominal pain on and off over the past couple of months and worsenedover the past couple of weeks - almost daily vomiting. Was seen in November and rec GI evaluation and EGD. Unable to view those records, however per daughter, she had an EGD 1 month ago and they were unable to advance EGD and this was stopped. Rec follow up, however unable to follow up due to this admission. Sxs started again 02/14. Patient with minimal amount to eat 02/15, however had large volume emesis ~ 2L. Concern for possible SBO vs achalasia vs gastroparesis vs other, patient has been passingstools. AXR obtained and shows air fluid level in stomach. Some nondilated bowel with air fluid levels. Upper abdominal pain noted, no distention. LFTs with elevated alk phos. S/p cholecystomy. EGD performed successfully 02/16/25 with above results. 1L of fluid suctioned from stomach. Strictures likely causing retention -> vomiting. All due to tobacco use. Discussed this with patient and daughter. Unable to dilate strictures at this time due to adjacent ulcer and high risk of perforation. Patient will be on a level 5 minced/moist diet until follow up. She ate lunch 02/16/25 w/o nausea or vomiting. She requested discharge late in the day. She is stable for DC at this time. Provided signs to return to ER vs urgent care. - Discharge Plan - PPI BID indefinitely - f/u with [facility] in 8 weeks for EGD, possible stricture dilation - level 5 diet - info on peptic ulcer diet provided Suspected atelectasis 02/11 2 PM, cross-cover patient for productive cough. Chest x-ray ordered showing right lung infiltrate. Concern for HAP therefore IV Vanco/Zosyn continued. Doubt hospital-acquired pneumonia given patient has been on very broad-spectrum antibiotics for quite a while. More likely atelectesis. Will complete IV abx course for now, and patient will be on PO abx for several weeks. REBECA, resolved Baseline Cr 0.3-0.5. Creatinine natasha to 0.82, improving with fluids. Possibly related to IV antibiotics. Hypoglycemia, resolved Poor p.o. intake over the last couple of days due to vomiting. Patient not feeling well. BG in the 40s. Received D5 IVF which was dc'd prior to discharge. Patient able to eat now. BG prior to DC was 156. Provided signs of hypoglycemia, and to drink juice if this were to occur. Tobacco dependence Pt reports that she is working on quitting. Long discussions about the importance of cessation. Agreeable to Chantix. - Discharge Plan - Nicotine patch - Chantix ramp prescribed Anemia, microcytic Hgb 10.1, unknown baseline. Has decreased down to 8.1. Suspect dilutional, no evidence of active bleeding. Avoid iron supplement for now given ulcers. Hypokalemia, resolved Hypomagnesemia, resolved K 3.2, replaced w improvement. Likely due to poor oral intake plus likely poor absorption with air fluid level in stomach and large volume emesis. N/V resolved. K/Mg WNL prior to discharge. ?CAD EKG w poss prev septal MO of indeterminate age. -- outpt stress test DISCHARGE EXAM: General: Well-developed, well-nourished. NAD. HENT: Normocephalic, atraumatic. Eyes non-icteric, conjunctive non-injected. Nose: patent nares. Mouth: moist mucous membranes. Neck: Full ROM. Trachea appears midline. Chest/Cardiovascular: Regular rate, regular rhythm. No audible murmurs. Pulmonary: No increased work of breathing. Speaking in full sentences. No wheezes, rhonchi, or rales. Abdomen: Soft. No tenderness or rebound. No distention. Extremities: Normal ROM of all four extremities. No obvious deformities. No LE edema or calf pain. Skin: No visible rashes on exposed skin. No pallor or jaundice. Neuro: CN II-XII grossly intact. Awake and answering questions appropriately. Results for orders placed or performed during the hospital encounter of 02/08/25 (from the past 24 hours) POCT Glucose Meter Result Value Ref Range GLUCOSE WB METER 84 60 - 100 mg/dL Potassium, Serum Result Value Ref Range Potassium 3.6 3.4 - 5.1 mmol/L POCT Glucose Meter Result Value Ref Range GLUCOSE WB METER 74 60 - 100 mg/dL POCT Glucose Meter Result Value Ref Range GLUCOSE WB METER 91 60 - 100 mg/dL CBC (HGB,HCT,WBC,RBC,Platelet) Result Value Ref Range WBC 5.4 4.3 - 10.8 K/uL RBC 2.14 (L) 4.20 - 5.40 M/uL Hemoglobin 7.6 (L) 12.0 - 16.0 gm/dL Hematocrit 24.2 (L) 36.0 - 48.0 % MCV 113 (H) 80 - 100 fL MCH 36 (H) 27 - 33 pg MCHC 31 (L) 33 - 36 gm/dL RDW 14.7 (H) 11.5 - 14.5 % Platelet Count 219 150 - 400 K/UL MPV 9.9 6.5 - 12 fL Basic Metabolic Profile Magnesium Result Value Ref Range Sodium 141 136 - 145 mmol/L Potassium 3.1 (L) 3.4 - 5.1 mmol/L Chloride 109 (H) 98 - 108 mmol/L Carbon Dioxide 30 20 - 31 mmol/L BUN (Urea Nitro) <5 (L) 9 - 23 mg/dL Creatinine 0.53 (L) 0.55 - 1.02 mg/dL Est GFR (CKD-EPI) >60.00 >60.00 mL/min/1.73m2 Glucose 90 74 - 106 mg/dL Calcium, Serum 7.4 (L) 8.7 - 10.4 mg/dL Anion Gap 2.0 0.0 - 15.0 mmol/L Magnesium 1.5 (L) 1.6 - 2.6 mg/dL POCT Glucose Meter Result Value Ref Range GLUCOSE WB METER 156 (H) 60 - 100 mg/dL Potassium Result Value Ref Range Potassium 4.0 3.4 - 5.1 mmol/L Magnesium Result Value Ref Range Magnesium 1.9 1.6 - 2.6 mg/dL Malnutrition : Does not meet malnutrition criteria Loss of Muscle Mass: Mild Loss of Subcutaneous Fat: Not present Energy Intake: Adequate intakes Interpretation of Weight Loss: Limited/no weight history available Wound: Skin Condition/Wound Non-Pressure Leathery;Flaky Right;Lower Foot (Active) First Observed/Origin Date/First Observed/Origin Time: 02/08/25 0118 Primary Wound Type: Skin Condition/Wound Non-Pressure Present on Original Admission: Yes Skin Condition Type: Leathery;Flaky Orientation: Right;Lower Location: Foot Wound: Skin Condition/Wound Non-Pressure Flaky;Leathery Lower;Left Foot (Active) First Observed/Origin Date/First Observed/Origin Time: 02/08/25 0000 Primary Wound Type: Skin Condition/Wound Non-Pressure Present on Original Admission: Yes Skin Condition Type: Flaky;Leathery Orientation: Lower;Left Location: Foot Wound: Skin Condition/Wound Non-Pressure Reddened (Non-Pressure Related) Left Hand (Active) First Observed/Origin Date/First Observed/Origin Time: 02/08/25 0000 Primary Wound Type: Skin Condition/Wound Non-Pressure Present on Original Admission: Yes Skin Condition Type: Reddened (Non-Pressure Related) Orientation: Left Location: Hand Wound: Skin Condition/Wound Non-Pressure Reddened (Non-Pressure Related) Right Hand (Active) First Observed/Origin Date/First Observed/Origin Time: 02/08/25 0000 Primary Wound Type: Skin Condition/Wound Non-Pressure Present on Original Admission: Yes Skin Condition Type: Reddened (Non-Pressure Related) Orientation: Right Location: Hand Wound: Skin Condition/Wound Non-Pressure Reddened (Non-Pressure Related) Right Hand (Active) First Observed/Origin Date/First Observed/Origin Time: 02/08/25 0000 Primary Wound Type: Skin Condition/Wound Non-Pressure Present on Original Admission: Yes Skin Condition Type: Reddened (Non-Pressure Related) Orientation: Right Location: Hand Wound: Surgical/Procedure Site Incision Right Finger (Active) First Observed/Origin Date/First Observed/Origin Time: 02/09/25 1047 Primary Wound Type: Surgical/Procedure Site Incision Type: Incision Orientation: Right Location: Finger Description: Right hand index finger, Reopened for I&D on 02/11/25 @ 1246 IMAGING XR ABDOMEN FLAT & UPRIGHT Result Date: 02/15/2025 XR ABDOMEN FLAT & UPRIGHT DATE: 02/15/2025 13:33 CLINICAL DATA: Pain. Acute osteomyelitis of theright hand. Abdominal pain. COMPARISON: None FINDINGS/ IMPRESSION: There are postsurgical changes consistent with cholecystectomy. There is no free intraperitoneal air. There is an air-fluid level within the stomach. There is a paucity of bowel gas. There are few loops of nondilated bowel in the left pelvis with air-fluid levels. There are patchy infiltrates of the lung bases. REPORT SIGNED BY DR. Diane Elizalde XR CHEST AP PORT Result Date: 02/13/2025 EXAM: XR CHEST AP PORT DATE: 02/13/2025 22:13 INDICATION: Postop finger amputation for gangrene withosteomyelitis. Cough. COMPARISON: None TECHNIQUE: AP portable chest FINDINGS: Hazy infiltrate in the right mid and lower lung. No dense consolidation or pleural effusion. Shallow lung expansion. Cardi omediastinal silhouette is normal. IMPRESSION: Right lung infiltrate. REPORT SIGNED BY Rico Cunningham MD DISCHARGE MEDICATIONS: Current Discharge Medication List NEW MEDICATIONS Details acetaminophen (TYLENOL) 500 mg oral tablet Take 2 tablets (1,000 mg) by mouth four times a day. Qty: 720 tablet, Refills: 0 gabapentin (NEURONTIN) 300 mg oral capsule Take 1 capsule (300 mg) by mouth three times a day. Qty: 270 capsule, Refills: 3 HYDROmorphone (DILAUDID) 2 mg oral tablet Take 1-2 tablets (2-4 mg) by mouth every 4 (four) hours as needed for pain. Qty: 32 tablet, Refills: 0 hydrOXYzine pamoate (VISTARIL) 25 mg oral capsule Take 1-2 capsules (25-50 mg) by mouth every 6 (six) hours as needed. Qty: 30 tablet, Refills: 0 methocarbamoL (ROBAXIN) 500 mg oral tablet Take 1-2 tablets (500-1,000 mg) by mouth four times a day. Qty: 60 tablet, Refills: 0 metroNIDAZOLE (FLAGYL) 500 mg oral tablet Take 1 tablet (500 mg) by mouth every 8 (eight) hours for22 days Indications: ORTHO, BONE AND GRAND TRAVERSE JOINT INFECTIONS. Qty: 66 tablet, Refills: 0 nicotine (NICOTROL) 7 mg/24 hr TD patch Apply 1 patch (7 mg) to skin once daily. Qty: 30 patch, Refills: 0 sulfamethoxazole 800 mg-trimethoprim 160 mg (BACTRIM DS;SEPTRA DS) 800-160 mg oral tablet Take 1 tablet (160 mg) by mouth twice a day for 22 days Indications: ORTHO, BONE AND GRAND TRAVERSE JOINT INFECTIONS. Qty: 44 tablet, Refills: 0 varenicline tartrate (CHANTIX;APO-VARENICLINE) 0.5 mg oral tablet Take 0.5 tablets (0.25 mg) by mouth once daily for 3 days, THEN 0.5 tablets (0.25 mg) twice a day for 4 days, THEN 1 tablet (0.5 mg) twice a day for 60 days. Qty: 126 tablet, Refills: 0 MEDICATIONS CONTINUED WITH CHANGES Details pantoprazole (PROTONIX) 40 mg oral delayed release tablet Take 1 tablet (40 mg) by mouth twice a day Indications: substitution for home med. Qty: 120 tablet, Refills: 0 DISCONTINUED MEDICATIONS ferrous sulfate (FERATAB) 325 mg (65 mg iron) oral tablet ondansetron (ZOFRAN) 4 mg oral ODT oxyCODONE, immediate release, (ROXICODONE) 5 mg oral tablet FOLLOWUP: Contact information for follow-up Taylor Gutierrez MD Specialty: Plastic Surgery [address] [address] [facility] [address] [facility] [address] Specify time frame for follow up?: 2 Weeks Call to make a follow-up appointment with Dr. Gutierrez (hand surgeon) for suture removal in [address] Gutierrez [phone] [address] [address] [place] [address] [facility] Specialty: Gastroenterology, Hepatology [address] [place], [place] [address] [facility] [address] Specify time frame for follow up?: 6 Weeks Instructions to follow-up provider: follow up in 8 weeks for repeat EGD Radha Anthony MD Specialty: Family Medicine [address] [facility] [address] Specify time frame for follow up?: 1 Week Instructions to follow-up provider: follow up hospitalization, consider podiatry consult Discharge Procedure Orders BUN/Creatinine ([facility]) Standing Status: Future Standing Exp. Date: 02/13/26 Potassium, Serum Standing Status: Future Standing Exp. Date: 03/15/25 Discharge Instructions We would like a lab checked the week of February 24, these can be done with your primary clinic, or [facility] lab (creatinine and potassium), results should be faxed to [facility] at [phone]. Dressing Change Twice daily dressing changes to right hand: Cover wound with non-stick (vaseline) gauze, wrap with roll gauze and NARCISA bandage. Ok to wash hand with soap and water. Follow Up with External Provider Referral Priority: Routine Referred to Provider: TAYLOR GUTIERREZ Number of Visits Requested: 1 Follow Up with External Provider Referral Priority: Routine Referral Location: [facility] Requested Specialty: Gastroenterology Number of Visits Requested: 1 Follow Up with External Provider Referral Priority: Routine Referred to Provider: RADHA ANTHONY Number of Visits Requested: 1 ID Follow Up Standing Status: Future Standing Exp. Date: 02/13/[address] Lucio for 02/28 Visit type: Telemedicine Total time spent on the day of discharge was Time: over 30 minutes including discharge planning, discussion with the patient, family, case management, RN, chart reviewing, and completing the discharge summary. Molly Epps PA-C [facility] Medicine Available on Circ[employer] or [employer] [phone] Cosigned by Michelle Pickering MD at 02/17/2025 11:15 AM CDT documented in this encounter Discharge Instructions * Attachments The following attachments cannot be sent through Care Everywhere. * Diet for Stomach Ulcers and Gastritis (AfterCare(R) Instructions(ER/ED)) (Swedish) * Soft Diet (Discharge Care) (Swedish) documented in this encounter Medications at Time of Discharge acetaminophen (TYLENOL) 500 mg oral tablet Take 2 tablets (1,000 mg) by mouth four times a day. 720 tablet 02/16/2025 gabapentin (NEURONTIN) 300 mg oral capsule Take 1 capsule (300 mg) by mouth three times a day. 270 capsule 3 02/16/2025 hydrOXYzine pamoate (VISTARIL) 25 mg oral capsule Take 1-2 capsules (25-50 mg) by mouth every 6 (six) hours as needed. 30 tablet 02/16/2025 methocarbamoL (ROBAXIN) 500 mg oral tablet Take 1-2 tablets (500-1,000 mg) by mouth four times a day. 60 tablet 02/16/2025 metroNIDAZOLE (FLAGYL) 500 mg oral tablet Take 1 tablet (500 mg) by mouth every 8 (eight) hours for 21 days. 63 tablet 02/18/2025 nicotine (NICOTROL) 7 mg/24 hr TD patch Apply 1 patch (7 mg) to skin once daily. 30 patch 02/17/2025 ondansetron (ZOFRAN) 4 mg oral ODT Dissolve 1-2 tablets (4-8 mg) in mouth every 12 (twelve) hours as needed for nausea. 30 tablet 02/16/2025 pantoprazole (PROTONIX) 40 mg oral delayed release tabletIndication s:substitution for home med Take 1 tablet (40 mg) by mouth twice a day Indications: substitution for home med. 120 tablet 02/16/2025 sulfamethoxazole 800 mg-trimethoprim 160 mg (BACTRIM DS;SEPTRA DS) 800-160 mg oral tablet Take 1 tablet (160 mg) by mouth twice a day for 21 days. 42 tablet 02/18/2025 5 varenicline tartrate (CHANTIX;APO-SABRINA ENICLINE) 0.5 mg oral tablet Take 0.5 tablets (0.25 mg) by mouth once daily for 3 days, THEN 0.5 tablets (0.25 mg) twice a day for 4 days, THEN 1 tablet (0.5 mg) twice a day for 60 days. 126 tablet 02/16/2025 5 HYDROmorphone (DILAUDID) 2 mg oral tablet Take 1-2 tablets (2-4 mg) by mouth every 4 (four) hours as needed for pain. 32 tablet 02/16/2025 5 documented as of this encounter Progress Notes * Rubia Velásquez, SINGH - 02/16/2025 4:04 PM CDT Hannah Loo 1980 [phone] P: Discharge A: Discharged via wheelchair to home at 1600 escorted by nursing program director I: Discharge information and arrangements included: review of written discharge instructions, review of purpose and side effects of new medication, belongings list completed. R:Patient expressed understanding of information. * Subject, Mila Guillermo RN - 02/16/2025 2:10 PM CDT Med-Surg Care Progression Note Type: Shift to shift summary Length of stay: 8 days Code Status: Full Code Primary Problem: Osteomyelitis Summary: EGD today- showing mild to moderate stenosis of esophagus, esophagitis with no bleeding, excessive gastric fluid & gastric ulcerations, duodenal ulcerations with several focal strictures. Patient really wanting to leave tonight. Advised that her electrolytes were low today & being replaced, & would like to see her tolerating diet tonight before having her discharge home. Patie nt still wants to see provider again to talk about discharge tonight. Potassium and Magnesium rechecks scheduled for 1899. 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 F- Feeding & Fluids: Minced & moist diet, thin liquids. IVF D5W-LR @ 125 mL/hr. Zofran, compazine & reglan available PRN for nausea. A- Analgesic & Anticoagulation: Comfort Goal: Numeric, Verbal, Faces: 4 - Moderate Analgesic Gave PRN IV dilaudid x2 this shift, due to nausea / vomiting she could not tolerate any oral meds. Anticoagulation/DVT prevention & plan SCDs S- Skin: Regulo Subcategory Concern(s): Sensory Perception: Slightly Limited Sensory Interventions:Appropriate support surface Moisture: Rarely Moist Activity: Walks Occasionally Activity Interventions: Low air loss mattress Nutrition: Probably Inadequate Nutrition Interventions: Calorie intake Mobility: No Limitations Friction and Shear: No Apparent Problem Total Regulo Score: 19: R hand dressing change BID with adaptic, dry gauze, NARCISA. Change completed this shift. T- Telemetry: Rhythm: Sinus Rhythm Ectopy: None No tele E- Emotional & Neuro: Participating in cares Neuro Alert & oriented R- Respiratory: On room air H- Head OUT of Bed & Activity: Activate Fall Alert? (Enter 1 or 0): (not recorded) Ambulating SBA to bathroom. Generalized weakness/ fatigue. Progressive mobility Phases 5-7: Phase 5: 10 steps or more U- Urologic/bowel: Size: Small (02/16/2025 6:20 AM) Voiding up to bathroom with assistance. No BM yet this shift. G- Glycemic Control: Accuchecks Q6H T- Treatment: Pain control. BID dressing changes to R hand surgical site. IV antibiotics. IVF. Monitor for hypoglycemia. Manage nausea. GI, plastics, ID following. I- Invasive Devices: PIV x2 L arm. D- Discharge: Tbd, pending medical stability. Patient is now wanting to discharge INDER. * Keila Beckman, Pharm D - 02/16/2025 1:07 PM CDT Pharmacy Kinetics Consult Hannah Loo, 02/16/2025, Time: 1:07 PM SUBJECTIVE Hannah Loo is a 44 y.o. female who was admitted on 02/08/2025. Pharmacy was consulted by Dr. Carrero to dose and monitor Vancomycin for HAP. OBJECTIVE Antibiotic Allergies: NKDA Current/Recent Antibiotics: Zosyn (02/07- ) 1st doses at OSH Vancomycin (02/07- ) 1st doses at OSH Bactrim (02/13) Metronidazole (02/13) Cultures and Sensitivities: 02/14 blood x2: no growth x24 hours 02/14 MRSA PCR positive 02/11 wound: MRSA, E coli 02/09 wound: MRSA, E coli, group C strep 02/09 wound: MRSA, E coli 02/09 wound: MRSA, E coli Vitals: Temp (24hrs), Av.1 ??F, Min:97.5 ??F, Max:98.8 ??F Height: 154.9 cm (5' 1) Weight: 53.6 kg (118 lb 2.7 oz) [place] body weight: 47.8 kg (105 lb 6.1 oz) Adjusted ideal body weight: 50.1 kg (110 lb 7.9 oz) Labs: Recent Labs 02/16/25 0706 WBC 5.4 CREATININE 0.53* Date Day SCr CrCl Dose/Freq Time Level Comments 02/07 1 -- -- 1000 mg IV 2048* Given at OSH 02/08 2 0.28 >100 1000 mg q12h , 02/09 3 0.50 >100 1000 mg q12h , 02/10 4 0.82 65 1000 mg q12h 08 02/11 5 0.84 63 1250 mg q24h 06 02/12 6 0.78 68 1250 mg q24h 06 02/13 7 0.80 66 1250 mg q24h 06 DC'ed and restarted 02/14 8 0.65 81 1250 mg q24h 06 02/15 9 0.52 102 1000 mg q18h 1000 mg q12h 01 14 22.1 @0741 AUC 395 mg/L.hr 02/16 10 0.53 100 1000 mg q12h 02 (14) ASSESSMENT/PLAN 44 yo female admitted for osteomyelitis. She received first doses of antibiotics prior to transfer from OSH. Now covering for pneumonia as well. Random vancomycin level 22.1 mcg/mL 02/15 AM, corresponded with an AUC of 395 mg/L.hr, below goal. Adjusted dose to 1000 mg q12h for an estimated AUC of 586 mg/L.hr. Estimated AUC now 600 mg/L.hr today although SCr is stable. Watch closely. Plan for course to end 02/17. Regimen: vancomycin 1000 mg IV q12h Calculated AUC: 600 mg/L.hr Probability of AUC >400 (PAUC): 100% Nephrotoxicity probability: 11% Vancomycin goal: AUC 400-600mg*hr/L Next vancomycin level due: TBD Antibiotic time-out N/A, ID consulted Pharmacist will continue to follow. Please call with questions. Keila Beckman PharmD, BCPS Phone: [phone] * Molly Epps PA-C - 02/16/2025 8:58 AM CDT Images from the original note were not included. HOSPITALIST DIVISION PROGRESS NOTE Assessment and Plan Principal Problem: Osteomyelitis (HCC) Active Problems: Buerger disease (HCC) Tobacco dependence Anemia Gangrene of finger of right hand (HCC) Suspected HAP/VAP (gram negative or MRSA pneumonia) Hannah Loo is a 45 y.o. 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 R Index Finger Osteomyelitis s/p Amputation 02/09/25 s/p palm I&D R Hand Cellulitis s/p I&D Palm Abscess 02/11/25 Sepsis 2/2 above, resolved Buerger's disease of R middle finger, L middle finger Transferred from [place]. On arrival vital signs with borderline tachycardia otherwise benign. Workup notable for leukocytosis, CRP 8.2, meeting sepsis criteria with tachycardia, leukocytosis and source of infection. On exam, right second digit with wet gangrene, left second and fifth digit with necrosis. Patient underwent amputation and I&D on 02/09, and another right knee 02/11. Started on IV Vanco and Zosyn. Wound cultures growing MRSA and E. coli. -- Plastics consult, apprec recs: - Okay to discharge - Dressing changes bid, suture removal in 2 weeks -- ID consulted -- Continue IV Vanco, Zosyn until tolerating PO -- day 9 today, will complete day 10 tomorrow then DC. -- Pain control: lakeisha tylenol, PO dilaudid, gabapentin 300 mg TID, robaxin QID and prn vistaril LA Grade D Esophagitis with stenosis Gastric Ulcer w/o stigmata Pyloric Channel Ulcer Severe Duodenitis with duodenal ulcer w/o stigmata Multiple Duodenal Strictures Patient endorses vomiting and abdominal pain on and off over the past couple of months and worsenedover the past couple of weeks - almost daily vomiting. Was seen in November and rec GI evaluation and EGD. Unable to view those records, however per daughter, she had an EGD 1 month ago and they were unable to advance EGD and this was stopped. Rec follow up, however unable to follow up due to this admission. Sxs started again 02/14. Patient with minimal amount to eat 02/15, however had large volume emesis ~ 2L. Concern for possible SBO vs achalasia vs gastroparesis vs other, patient has been passingstools. AXR obtained and shows air fluid level in stomach. Some nondilated bowel with air fluid levels. Upper abdominal pain noted, no distention. LFTs with elevated alk phos. S/p cholecystomy. EGD performed successfully 02/16/25 with above results. 1L of fluid suctioned from stomach. Strictures likely causing retention -> vomiting. All due to tobacco use. Discussed this with patient and daughter. Unable to dilate strictures at this time due to adjacent ulcer and high risk of perforation. -- GI consult -- PPI BID indefinitely -- tobacco cessation -- f/u in 8 weeks for repeat EGD, likely dilation of strictures -- level 5 diet until then Suspected atelectasis 02/11 2 PM, cross-cover patient for productive cough. Chest x-ray ordered showing right lung infiltrate. Concern for HAP therefore IV Vanco/Zosyn continued. Doubt hospital-acquired pneumonia given patient has been on very broad-spectrum antibiotics for quite a while. More likely atelectesis. Will complete IV abx course for now - ID following, continue IV Vanco/Zosyn - Attempt sputum culture, follow BC -- spirometer, ambulate REBECA, resolved Baseline Cr 0.3-0.5. Creatinine natasha to 0.82, improving with fluids. Possibly related to IV antibiotics. - Follow Hypoglycemia, resolved Poor p.o. intake over the last couple of days due to vomiting. Patient not feeling well. BG in the 40s. - D5 IVF @ 125 cc/hr, intermittently stopping infusion for IV abx -- q6 hr BG checks Tobacco dependence Pt reports that she is working on quitting. Agreeable to Chantix. -- begin Chantix -- NRT while here -- recommend complete cessation, patient in agreement Anemia, microcytic Hgb 10.1, unknown baseline. Has decreased down to 8.1. Suspect dilutional, no evidence of active bleeding - Daily hemoglobin Hypokalemia Hypomagnesemia K 3.2, replaced w improvement. Likely due to poor oral intake plus likely poor absorption with air fluid level in stomach and large volume emesis. -- K/MG protocol ?CAD EKG w poss prev septal MO of indeterminate age. -- outpt stress test # Lines: peripheral IV # Fluids: PO # [place]: none # DVT Prophylaxis: resume lovenox # Code status: Full code # Discharge criteria: Anticipate discharge in 1-2 day(s). Patient requires another night stay to ensure PO intake w/o vomiting, stabilization of electrolytes. # Post Hospital Plan: anticipate home SUBJECTIVE CHIEF COMPLAINT: feeling improve HPI: Patient feels much improved today. Vomiting gone, abdominal pain resolved. OBJECTIVE Physical Exam: BP (!) 137/99 Pulse 78 Temp 98.3 ??F (36.8 ??C) Resp 16 Ht 5' 1 (1.549 m) Wt 53.6 kg (118 lb 2.7 oz) LMP (LMP Unknown) SpO2 90% No BMI 22.33 kg/m?? Intake/Output Summary (Last 24 hours) at 02/16/2025 0858 Last data filed at 02/16/2025 0700 Gross per 24 hour Intake 3460.28 ml Output 1900 ml Net 1560.28 ml General: Well-developed, well-nourished. NAD. HENT: Normocephalic, atraumatic. Eyes non-icteric, conjunctive non-injected. Nose: patent nares. Mouth: moist mucous membranes. Neck: Full ROM. Trachea appears midline. Chest/Cardiovascular: Regular rate, regular rhythm. No audible murmurs. Pulmonary: No increased work of breathing. Speaking in full sentences. No wheezes, rhonchi, or rales. Abdomen: Soft. No tenderness or rebound. No distention. Extremities: Normal ROM of all four extremities. No obvious deformities. No LE edema or calf pain. Skin: No visible rashes on exposed skin. No pallor or jaundice. Neuro: CN II-XII grossly intact. Awake and answering questions appropriately. Current Facility-Administered Medications: [Transfer Hold] saline FLUSH syringe 10 mL, 10 mL, Intravenous, Q8H, Yany Ingram MD, 10mL at 02/16/25 0524 [Transfer Hold] saline FLUSH syringe 10 mL, 10 mL, Intravenous, PRN, Yany Ingram MD, 10mL at 02/15/25 0922 [Transfer Hold] acetaminophen (TYLENOL) tablet 1,000 mg, 1,000 mg, oral, QID, Carlene Rosen PA-C, 1,000 mg at 02/15/25 2136 [Transfer Hold] D50W IV syringe 25-50 mL, 25-50 mL, Intravenous, PRN, Molly Epps PA-C, 25 mL at 02/14/25 2041 [Transfer Hold] dextrose 5% in water-lactated ringers IV infusion, , Intravenous, CONTINUOUS, Danielle Carrero DO, Last Rate: 125 mL/hr at 02/16/25 0206, New Bag at 02/16/25 0206 [Transfer Hold] famotidine (PEPCID) injection 20 mg, 20 mg, Intravenous, Twice Daily, Yany Ingram MD, 20 mg at 02/15/25 1930 [Transfer Hold] gabapentin (NEURONTIN) capsule 300 mg, 300 mg, oral, TID, Henna Paniagua APRN,ANDROID DEVELOPER, 300 mg at 02/15/25 2136 [Transfer Hold] glucagon, human recombinant (Glucagen) injection (conc: 1 mg/mL) 1 mg, 1 mg, IntraMUSCULAR, Q 15 MINS PRN, Molly Epps PA-C [Transfer Hold] guaiFENesin (ROBITUSSIN) syrup 100 mg, 100 mg, oral, Q4H PRN, Danielle Carrero DO, 100 mg at 02/16/25 0428 [Transfer Hold] HYDROmorphone (Dilaudid) syringe 0.5-1 mg, 0.5-1 mg, Intravenous, Q4H PRN, Henna Paniagua APRN, ANDROID DEVELOPER, 0.5 mg at 02/16/25 0326 [Transfer Hold] HYDROmorphone (DILAUDID) tablet 2-4 mg, 2-4 mg, oral, Q4H PRN, Henna Paniagua APRN, ANDROID DEVELOPER, 4 mg at 02/16/25 0042 [Transfer Hold] hydrOXYzine pamoate (Vistaril) capsule 25-50 mg, 25-50 mg, oral, Q6H PRN, Carlene Rosen PA-C, 50 mg at 02/14/25 1618 [Transfer Hold] lidocaine (LMX-4) topical cream 1 Application, 1 Application, topical, PRN, Yany Ingram MD [Transfer Hold] lidocaine 1% injection (conc: 10 mg/mL) 0.1-0.3 mL, 0.1-0.3 mL, Intradermal, PRN, Yany Ingram MD [Transfer Hold] MAGNESIUM REPLACEMENT INTRAVENOUS - NOT FOR DOCUMENTATION PURPOSES, , Intravenous, PER PROTOCOL, Yany Ingram MD [Transfer Hold] magnesium sulfate 2 gram / 50mL (4%) IV piggyback (PREMIX) 2 g, 2 g, Intravenous, ONCE, Molly Epps PA-C [Transfer Hold] methocarbamoL (ROBAXIN) tablet 500-1,000 mg, 500-1,000 mg, oral, QID, Molly Epps PA-C, 500 mg at 02/15/25 2136 [Transfer Hold] metoclopramide HCl (Reglan) injection 10 mg, 10 mg, Intravenous, Q6H PRN, Molly Epps PA-C, 10 mg at 02/15/25 1144 [Held by provider] metroNIDAZOLE (FLAGYL) tablet 500 mg, 500 mg, oral, Q8H, Loly Castaneda PA-C,500 mg at 02/13/25 2114 [Transfer Hold] nicotine (NICOTROL) 7 mg/24 hr patch 7 mg, 1 patch, Transdermal, DAILY, Carlene Rosen PA-C, 7 mg at 02/14/25 0846 [Transfer Hold] ondansetron (Zofran) injection 4-8 mg, 4-8 mg, Intravenous, Q8H PRN, 4 mg at 02/16/25 0326 OR [Transfer Hold] ondansetron (Zofran) disintegrating tablet 4-8 mg, 4-8 mg, oral, Q8H PRN, Carlene Rosen PA- C, 4 mg at 02/15/25 193 [Transfer Hold] pantoprazole (Protonix) delayed release tablet 40 mg, 40 mg, oral, Twice Daily, Taylor Gutierrez MD, 40 mg at 02/15/251929 piperacillin-tazobactam (ZOSYN) 3.375 g in sodium chloride 0.9 % 100 mL IV piggyback, 3.375 g, Intravenous, Q8H (NS), Danielle Carrero DO, Last Rate: 25 mL/hr at 02/16/25 0524, 3.375 g at 02/16/25 0524 [Transfer Hold] potassium chloride 10 mEq IV piggyback in 100 mL, 10 mEq, Intravenous, Q1H, Molly Epps PA-C [Transfer Hold] POTASSIUM REPLACEMENT INTRAVENOUS - NOT FOR DOCUMENTATION PURPOSES, , Intravenous, PER PROTOCOL, Yany Ingram MD [Transfer Hold] POTASSIUM REPLACEMENT ORAL - NOT FOR DOCUMENTATION PURPOSES, , oral, PER PROTOCOL, Yany Ingram MD [Transfer Hold] prochlorperazine (COMPAZINE) injection 5-10 mg, 5-10 mg, Intravenous, Q6H PRN, Lanie Sotelo DNP,STOVE INSTALLER, 10 mg at 02/16/25 0439 [Transfer Hold] saline with benzyl alcohol injection 0.1-0.3 mL, 0.1-0.3 mL, Intradermal, PRN, Yany nIgram MD [Held by provider] sulfamethoxazole 800 mg-trimethoprim 160 mg (BACTRIM DS;SEPTRA DS) tablet 160 mg, 1 tablet, oral, Twice Daily, Loly Castaneda PA- C, 160 mg at 02/13/25 1809 vancomycin (VANCOCIN) 1,000 mg in sodium chloride 0.9 % 250 mL IV piggyback, 20 mg/kg, Intravenous,Q12H (NS), Keila Beckman, Pharm D, Last Rate: 250 mL/hr at 02/16/25 0209, 1,000 mg at 02/16/25 0209 [Transfer Hold] Vancomycin Pharmacy Consult, 1 Consult, N/A, PRN, Danielle Carrero, Facility-Administered Medications Ordered in Other Encounters: lactated Ringers (LR) IV infusion, , Intravenous, CONTINUOUS PRMima, Pamela Bass APRN, CRNA, NewBag at 02/16/25 0850 lidocaine 2% injection (conc: 20 mg/mL), , Intravenous, PRN, Pamela Bass APRN, PLACEMENT MANAGER, 100 mg at 02/16/25 0853 propofol 10 mg/mL (DIPRIVAN) IV injection-BOLUS, , Intravenous, PRN, Pamela Bass APRN, PLACEMENT MANAGER, 150 mg at 02/16/25 0853 succinylcholine chloride (ANECTINE) injection, , Intravenous, PRMima, Pamela Bass APRN, REBECA, 100 mg at 02/16/25 0853 Results for orders placed or performed during the hospital encounter of 02/08/25 (from the past 24 hours) POCT Glucose Meter Result Value Ref Range GLUCOSE WB METER 102 (H) 60 - 100 mg/dL POCT Glucose Meter Result Value Ref Range GLUCOSE WB METER 84 60 - 100 mg/dL Potassium, Serum Result Value Ref Range Potassium 3.6 3.4 - 5.1 mmol/L POCT Glucose Meter Result Value Ref Range GLUCOSE WB METER 74 60 - 100 mg/dL POCT Glucose Meter Result Value Ref Range GLUCOSE WB METER 91 60 - 100 mg/dL CBC (HGB,HCT,WBC,RBC,Platelet) Result Value Ref Range WBC 5.4 4.3 - 10.8 K/uL RBC 2.14 (L) 4.20 - 5.40 M/uL Hemoglobin 7.6 (L) 12.0 - 16.0 gm/dL Hematocrit 24.2 (L) 36.0 - 48.0 % MCV 113 (H) 80 - 100 fL MCH 36 (H) 27 - 33 pg MCHC 31 (L) 33 - 36 gm/dL RDW 14.7 (H) 11.5 - 14.5 % Platelet Count 219 150 - 400 K/UL MPV 9.9 6.5 - 12 fL Basic Metabolic Profile Magnesium Result Value Ref Range Sodium 141 136 - 145 mmol/L Potassium 3.1 (L) 3.4 - 5.1 mmol/L Chloride 109 (H) 98 - 108 mmol/L Carbon Dioxide 30 20 - 31 mmol/L BUN (Urea Nitro) <5 (L) 9 - 23 mg/dL Creatinine 0.53 (L) 0.55 - 1.02 mg/dL Est GFR (CKD-EPI) >60.00 >60.00 mL/min/1.73m2 Glucose 90 74 - 106 mg/dL Calcium, Serum 7.4 (L) 8.7 - 10.4 mg/dL Anion Gap 2.0 0.0 - 15.0 mmol/L Magnesium 1.5 (L) 1.6 - 2.6 mg/dL Wound: Skin Condition/Wound Non-Pressure Leathery;Flaky Right;Lower Foot (Active) First Observed/Origin Date/First Observed/Origin Time: 02/08/25 0118 Primary Wound Type: Skin Condition/Wound Non-Pressure Present on Original Admission: Yes Skin Condition Type: Leathery;Flaky Orientation: Right;Lower Location: Foot Wound: Skin Condition/Wound Non-Pressure Flaky;Leathery Lower;Left Foot (Active) First Observed/Origin Date/First Observed/Origin Time: 02/08/25 0000 Primary Wound Type: Skin Condition/Wound Non-Pressure Present on Original Admission: Yes Skin Condition Type: Flaky;Leathery Orientation: Lower;Left Location: Foot Wound: Skin Condition/Wound Non-Pressure Reddened (Non-Pressure Related) Left Hand (Active) First Observed/Origin Date/First Observed/Origin Time: 02/08/25 0000 Primary Wound Type: Skin Condition/Wound Non-Pressure Present on Original Admission: Yes Skin Condition Type: Reddened (Non-Pressure Related) Orientation: Left Location: Hand Wound: Skin Condition/Wound Non-Pressure Reddened (Non-Pressure Related) Right Hand (Active) First Observed/Origin Date/First Observed/Origin Time: 02/08/25 0000 Primary Wound Type: Skin Condition/Wound Non-Pressure Present on Original Admission: Yes Skin Condition Type: Reddened (Non-Pressure Related) Orientation: Right Location: Hand Wound: Skin Condition/Wound Non-Pressure Reddened (Non-Pressure Related) Right Hand (Active) First Observed/Origin Date/First Observed/Origin Time: 02/08/25 0000 Primary Wound Type: Skin Condition/Wound Non-Pressure Present on Original Admission: Yes Skin Condition Type: Reddened (Non-Pressure Related) Orientation: Right Location: Hand Wound: Surgical/Procedure Site Incision Right Finger (Active) First Observed/Origin Date/First Observed/Origin Time: 02/09/25 1047 Primary Wound Type: Surgical/Procedure Site Incision Type: Incision Orientation: Right Location: Finger Description: Right hand index finger, Reopened for I&D on 02/11/25 @ 1246 Additional comments: I reviewed the patient's new clinical lab test results. I reviewed the patient's medications. I reviewed the patient's new imaging test results. I reviewed old records and previous notes. I discussed the patient's care with Dr. Pickering. Molly Epps PA-C, [facility] Medicine Available on [employer] or [employer] [phone] * Patricia Herring RN - 02/16/2025 5:28 AM CDT Med-Surg Care Progression Note Type: Shift to shift summary Length of stay: 8 days Code Status: Full Code Primary Problem: Osteomyelitis, Right hand pain Summary: No acute changes this shift. Pain control ongoing + IV Abx admin. Pt has been NPO since MN- EGD scheduled late morning. Gave zofran; then compazine for N/V. 1 occurrence of emesis this shift. Also gave Robitussin for cough. 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 K/Mg at goal. Hgb 7.6. 02/09: Right hand I&D, Amputation of right index finger 02/11: I&D of right hand F- Feeding & Fluids: NPO since MN; D5W in LR infusing 125ml/hr. IV Zosyn infusing. A- Analgesic & Anticoagulation: Comfort Goal: Numeric, Verbal, Faces: 4 - Moderate Analgesic PRN PO & IV Dilaudid given Anticoagulation/DVT prevention & plan SCDs S- Skin: Regulo Subcategory Concern(s): Sensory Perception: Slightly Limited Sensory Interventions:Appropriate support surface and Pain control Moisture: Rarely Moist Activity: Walks Occasionally Activity Interventions: Low air loss mattress Nutrition: Probably Inadequate Nutrition Interventions: Calorie intake Mobility: No Limitations Mobility Interventions: Low air loss support Friction and Shear: No Apparent Problem Total Regulo Score: 19: T- Telemetry: Rhythm: Sinus Rhythm Ectopy: None No tele E- Emotional & Neuro: Participating in cares Neuro Alert and Oriented R- Respiratory: On room air H- Head OUT of Bed & Activity: Activate Fall Alert? (Enter 1 or 0): (not recorded) Ambulating SBA to bathroom. Early mobility Phases 1-4: Phase 4: Ambulation U- Urologic/bowel: Size: Small (02/16/2025 12:31 AM) Voiding in bathroom. Had 2 small BM this shift. G- Glycemic Control: Accuchecks Q6 hours for poor intake and now NPO. T- Treatment: pain control, wound care, K/Mg protocol, plastics/ID following, IV abx I- Invasive Devices: PIV x2 D- Discharge: TBD * Rubia Velásquez RN - 02/15/2025 8:36 PM CDT Med-Surg Care Progression Note Type: Shift to shift summary Length of stay: 7 days Code Status: Full Code Primary Problem: Osteomyelitis, Right hand pain PMH: Buerger's disease and ongoing tobacco use with a history of spontaneous amputation of multipledigits that presented to outside hospital with wet gangrene of the right hand. 02/09: Right hand I&D, Amputation of right index finger 02/11: I&D of right hand Summary: GI consulted. abd xray showing poss SBO. NPO. Can have PO meds w/ sips of water. Endoscopytomorrow. F- Feeding & Fluids: Had mashed potatoes and then became NPO. Monitor for N/V. Zofran given fornausea. No emesis this shift. D5W in LR infusing 125ml/hr. IV Zosyn infusing. A- Analgesic & Anticoagulation: Comfort Goal: Numeric, Verbal, Faces: 4 - Moderate Analgesic Scheduled Tylenol and Robaxin given, PRN IV and PO Dilaudid available Anticoagulation/DVT prevention & plan SCDs S- Skin: Regulo Subcategory Concern(s): Sensory Perception: Slightly Limited Sensory Interventions:Appropriate support surface and Pain control Moisture: Rarely Moist Activity: Walks Occasionally Activity Interventions: Low air loss mattress Nutrition: Probably Inadequate Nutrition Interventions: Calorie intake Mobility: No Limitations Mobility Interventions: Low air loss support Friction and Shear: No Apparent Problem Total Regulo Score: 19: wound care BID. 2129 last done. T- Telemetry: Rhythm: Sinus Rhythm Ectopy: None No tele E- Emotional & Neuro: Participating in cares Neuro Alert and Oriented R- Respiratory: On room air H- Head OUT of Bed & Activity: Activate Fall Alert? (Enter 1 or 0): (not recorded) Ambulating SBA to bathroom. Early mobility Phases 1-4: Phase 4: Ambulation U- Urologic/bowel: Size: Small (02/15/2025 7:00 PM) Voiding in bathroom. No BM this shift. G- Glycemic Control: Accuchecks [id number] for poor intake and now NPO. T- Treatment: pain control, wound care, K/Mg protocol, plastics/ID following, IV abx I- Invasive Devices: PIV x2 D- Discharge: TBD * Subject, Mila GuillermoSINGH - 02/15/2025 2:30 PM CDT Med-Surg Care Progression Note Type: Shift to shift summary Length of stay: 7 days Code Status: Full Code Primary Problem: Osteomyelitis Summary: Pt very nauseous all shift, 4 emesis episodes about ~2000 mL emesis output total. PRN zofran, compazine & reglan for nausea. GI consulted, will plan for scope tomorrow- NPO at midnight. Potassium 2.9 today, replaced via IV due to not tolerating PO intake due to nausea. K+ recheck @ 2150. Dressing change to R hand completed this shift, change BID. 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 F- Feeding & Fluids: Regular diet as tolerated, thin liquids. NPO after midnight for scope withGI tomorrow. IVF D5W-LR @ 125 mL/hr. 3 PRN nausea meds available. A- Analgesic & Anticoagulation: Comfort Goal: Numeric, Verbal, Faces: 4 - Moderate Analgesic Gave PRN IV dilaudid x2 this shift, due to nausea / vomiting she could not tolerate any oral meds. Anticoagulation/DVT prevention & plan SCDs S- Skin: Regulo Subcategory Concern(s): Sensory Perception: Slightly Limited Sensory Interventions:Appropriate support surface Moisture: Rarely Moist Activity: Walks Occasionally Activity Interventions: Low air loss mattress Nutrition: Probably Inadequate Nutrition Interventions: Calorie intake Mobility: No Limitations Friction and Shear: No Apparent Problem Total Regulo Score: 19: R hand dressing change BID with adaptic, dry gauze, NARCISA. Change completed this shift. T- Telemetry: Rhythm: Sinus Rhythm Ectopy: None No tele E- Emotional & Neuro: Participating in cares Neuro Drowsy, oriented. R- Respiratory: On room air H- Head OUT of Bed & Activity: Activate Fall Alert? (Enter 1 or 0): (not recorded) Ambulating SBA to bathroom. Generalized weakness/ fatigue. Progressive mobility Phases 5-7: Phase 5: 10 steps or more U- Urologic/bowel: Size: Small (02/15/2025 6:00 AM) Voiding up to bathroom with assistance. No BM yet this shift, but reports loose BM's yesterday/ overnight. G- Glycemic Control: Accuchecks Q6H due to hypoglycemia T- Treatment: Pain control. BID dressing changes to R hand surgical site. IV antibiotics. IVF. Monitor for hypoglycemia. Manage nausea. GI, plastics, ID following. I- Invasive Devices: PIV x2 L arm. D- Discharge: Tbd, pending medical stability. 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 Intraop cx on 02/09 with MRSA, E.coli and mixed anaerobes. she had the second metacarpal amputated on 02/11, and cx with S.aureus, GNB. Buerger's disease, smoker New cough with rt lung infiltrate on 02/13 RECOMMENDATIONS: Ok to continue IV vancomycin, and zosyn- day 9 - unable to tolerate oral route at this time. - ok to continue IV route of abx for now - Once vomiting improves , oral abx as planned previously for hand infection - doubt new infection (pneumonia) since she has been on broad spectrum abx therapy 2. Sputum culture sent today 3. GI evaluation for vomiting, weight loss, chronic abdominal discomfort ID will follow peripherallyy INTERVAL HISTORY New cough with rt lung infiltrate on 02/13 SUBJECTIVE: C/o vomiting, chronic abdominal discomfort Daughter at bedside reports significant weight loss for last few month. Last year she weighed 180 pounds, in november to now approximately lost 20 pounds ROS: As noted in Subjective above. MEDICATIONS: Reviewed in the Order Review tab in EMR ALLERGIES: No Known Allergies EXAMINATION: Vital Signs: BP 136/88 Pulse 75 Temp 98.4 ??F (36.9 ??C) Resp 17 Ht 5' 1 (1.549 m) Wt 53.6 kg (118 lb 2.7 oz) LMP (LMP Unknown) SpO2 93% No BMI 22.33 kg/m?? Temp (24hrs), Av.3 ??F (36.8 ??C), Min:98 ??F (36.7 ??C), Max:98.6 ??F (37 ??C) Weight: 53.6 kg (118 lb 2.7 oz) NAD Eye: normal lids and conjunctivae, eom intact HENT: NC, AT. Normal external nose and ears. Supple neck Lungs - normal effort, speaks full sentences on room air. Clear bilaterally Abd - soft NTND Neuro - AAO x3, answer questions appropriately Ext - Rt hand with dressing. Right ring finger s/p amputation with dry gangrene at the tip. Lt index, ring finger s/p amputation, Lt middle and little finger necrotic dry tissue at the tip Skin - no rash. NEW DATA/RESULTS: Micro: Results for orders placed or performed during the hospital encounter of 02/08/25 Culture-Anaerobe Collection Time: 02/11/25 1:03 PM Specimen: Index finger right; Site-Microbiology Result Value Ref Range CULT-ANAEROBE No anaerobic growth isolated in 2 days. Final report to follow. Culture-Aerobic Collection Time: 02/11/25 1:03 PM Specimen: Index finger right; Site-Microbiology Result Value Ref Range Aerobic Culture (A) Few colonies of Methicillin resistant Staphylococcus aureus (MRSA) Aerobic Culture One colony of Escherichia coli (A) Gram Stain Result No bacteria seen. Gram Stain Result No WBC's seen / LPF Susceptibility Escherichia coli - TONIO Ampicillin <=2.00 Sensitive Ampicillin/Sulbactam <=2 Sensitive Ceftriaxone <=0.25 Sensitive Ertapenem <=0.12 Sensitive Gentamicin <=1.00 Sensitive Levofloxacin <=0.12 Sensitive Meropenem <=0.25 Sensitive Piperacillin/Tazobactam <=4 Sensitive Trimethoprim/Sulfamethoxazole <=20 Sensitive Methicillin resistant Staphylococcus aureus (MRSA) - TONIO Clindamycin 0.25 Sensitive Doxycycline <=0.50 Sensitive Erythromycin >=8.00 Resistant Oxacillin >=4.00 Resistant Rifampin <=0.50 Sensitive Tetracycline <=1.00 Sensitive Trimethoprim/Sulfamethoxazole <=10 Sensitive Vancomycin 1.00 Sensitive Lab: WBC Date Value Ref Range Status 02/15/2025 7.4 4.3 - 10.8 K/uL Final Creatinine Date Value Ref Range Status 02/15/2025 0.52 (L) 0.55 - 1.02 mg/dL Final Est GFR (CKD-EPI) Date Value Ref Range Status 02/15/2025 >60.00 >60.00 mL/min/1.73m2 Final Comment: Calculation based on the Chronic Kidney Disease Epidemiology Collaboration (CKD- EPI) equation refitwithout adjustment for race. Imaging: Imaging results reviewed personally. Conrad Lucio MD Infectious diseases * Keila Beckman, Pharm D - 02/15/2025 9:02 AM CDT Pharmacy Kinetics Consult Hannah Loo, 02/15/2025, Time: 9:02 AM SUBJECTIVE Hannah Loo is a 44 y.o. female who was admitted on 02/08/2025. Pharmacy was consulted by Dr. Carrero to dose and monitor Vancomycin for HAP. OBJECTIVE Antibiotic Allergies: NKDA Current/Recent Antibiotics: Zosyn (02/07- ) 1st doses at OSH Vancomycin (02/07- ) 1st doses at OSH Bactrim (02/13) Metronidazole (02/13) Cultures and Sensitivities: 02/14 blood x2: no growth x24 hours 02/14 MRSA PCR positive 02/11 wound: MRSA, E coli 02/09 wound: MRSA, E coli, group C strep 02/09 wound: MRSA, E coli 02/09 wound: MRSA, E coli Vitals: Temp (24hrs), Av.3 ??F, Min:98 ??F, Max:98.6 ??F Height: 154.9 cm (5' 1) Weight: 53.6 kg (118 lb 2.7 oz) [place] body weight: 47.8 kg (105 lb 6.1 oz) Adjusted ideal body weight: 50.1 kg (110 lb 7.9 oz) Labs: Recent Labs 02/15/25 0741 WBC 7.4 CREATININE 0.52* Date Day SCr CrCl Dose/Freq Time Level Comments 02/07 1 -- -- 1000 mg IV 2048* Given at OSH 02/08 2 0.28 >100 1000 mg q12h , 02/09 3 0.50 >100 1000 mg q12h , 02/10 4 0.82 65 1000 mg q12h 08 02/11 5 0.84 63 1250 mg q24h 06 02/12 6 0.78 68 1250 mg q24h 06 02/13 7 0.80 66 1250 mg q24h 06 [place]'ed and restarted 02/14 8 0.65 81 1250 mg q24h 06 02/15 9 0.52 102 1000 mg q18h 1000 mg q12h 01 (1400) 22.1 @0741 AUC 395 mg/L.hr ASSESSMENT/PLAN 44 yo female admitted for osteomyelitis. She received first doses of antibiotics prior to transfer from OSH. Now covering for pneumonia as well. Random vancomycin level 22.1 mcg/mL this morning, corresponds with an AUC of 395 mg/L.hr, below goal. Will adjust dose to 1000 mg q12h for an estimated AUC of 586 mg/L.hr. Regimen: vancomycin 1000 mg IV q12h Calculated AUC: 586 mg/L.hr Probability of AUC >400 (PAUC): 100% Nephrotoxicity probability: 10% Vancomycin goal: AUC 400-600mg*hr/L Next vancomycin level due: TBD Antibiotic time-out N/A, ID consulted Pharmacist will continue to follow. Please call with questions. Keila Beckman PharmD, BCPS Phone: [phone] * Molly Epps PA-C - 02/15/2025 8:33 AM CDT Images from the original note were not included. HOSPITALIST DIVISION PROGRESS NOTE Assessment and Plan Principal Problem: Osteomyelitis (HCC) Active Problems: Buerger disease (HCC) Tobacco dependence Anemia Gangrene of finger of right hand (HCC) Suspected HAP/VAP (gram negative or MRSA pneumonia) Hannah Loo is a 45 y.o. 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 R Index Finger Osteomyelitis s/p Amputation 02/09/25 s/p palm I&D R Hand Cellulitis s/p I&D Palm Abscess 02/11/25 Sepsis 2/2 above, resolved Buerger's disease of R middle finger, L middle finger Transferred from [place]. On arrival vital signs with borderline tachycardia otherwise benign. Workup notable for leukocytosis, CRP 8.2, meeting sepsis criteria with tachycardia, leukocytosis and source of infection. On exam, right second digit with wet gangrene, left second and fifth digit with necrosis. Patient underwent amputation and I&D on 02/09, and another right knee 02/11. Started on IV Vanco and Zosyn. Wound cultures growing MRSA and E. coli. -- Plastics consult, apprec recs: - Okay to discharge - Dressing changes bid, suture removal in 2 weeks -- ID consulted -- Continue IV Vanco, Zosyn until tolerating PO -- Pain control: lakeisha tylenol, switched to PO dilaudid, gabapentin 300 mg TID, robaxin QID and prn vistaril Vomiting Abdominal Pain Patient endorses these sxs on and off for the last couple of months. Was seen in November and rec GI evaluation and EGD. Unable to view those records, however per daughter, she had an EGD 1 month ago and they were unable to advance EGD and this was stopped. Rec follow up, however pain unable to followup due to this admission. Sxs started again yesterday. Patient with minimal amount to eat today andyesterday, and subsequently had large volume emesis ~ 2L 02/15/25. Concern for possible SBO vs achalasia vs gastroparesis vs other, patient has been passing stools. AXR obtained and shows air fluid level in stomach. Some nondilated bowel with air fluid levels. Upper abdominal pain noted, no distenti on. LFTs with elevated alk phos. S/p cholecystomy. -- Possible SBO given clinical episode of: abdominal pain, vomiting, concerning imaging findings. -- Keep NPO for now -- GI consult -- NPO at midnight for EGD tomorrow Suspected atelectasis 02/11 2 PM, cross-cover patient for productive cough. Chest x-ray ordered showing right lung infiltrate. Concern for HAP therefore IV Vanco/Zosyn continued. Doubt hospital-acquired pneumonia given patient has been on very broad-spectrum antibiotics for quite a while. More likely atelectesis. Will complete IV abx course for now - ID following, continue IV Vanco/Zosyn for now until able to tolerate PO - Attempt sputum culture, follow BC -- spirometer, ambulate REBECA, stable Baseline Cr 0.3-0.5. Creatinine natasha to 0.82, improving with fluids. Possibly related to IV antibiotics. - Follow Hypoglycemia Poor p.o. intake over the last couple of days due to vomiting. Patient not feeling well. BG in the 40s. - D5 IVF @ 125 cc/hr, intermittently stopping infusion for IV abx -- q6 hr BG checks Tobacco dependence Pt reports that she is working on quitting. -- NRT while here (ok per Plastics) -- recommend complete cessation, patient in agreement Anemia, microcytic Hgb 10.1, unknown baseline. Has decreased down to 8.1. Suspect dilutional, no evidence of active bleeding - Daily hemoglobin Hypokalemia, Resolved K 3.2, replaced w improvement. -- K/MG protocol ?CAD EKG w poss prev septal MO of indeterminate age. -- outpt stress test # Lines: peripheral IV # Fluids: PO # Escalera: none # DVT Prophylaxis: hold for EGD tomorrow # Code status: Full code # Discharge criteria: Anticipate discharge in 1-2 day(s). Patient requires another night stay to stabilize blood glucose, ensure appropriate p.o. intake, requiring EGD tomorrow. # Post Hospital Plan: anticipate home SUBJECTIVE CHIEF COMPLAINT: vomiting HPI: Patient endorses ongoing vomiting with abdominal pain that began yesterday. Has been dealing with this on and off for the last couple of months. OBJECTIVE Physical Exam: BP 136/88 Pulse 75 Temp 98.4 ??F (36.9 ??C) Resp 17 Ht 5' 1 (1.549 m) Wt 53.6 kg (118 lb2.7 oz) LMP (LMP Unknown) SpO2 93% No BMI 22.33 kg/m?? Intake/Output Summary (Last 24 hours) at 02/15/2025 0833 Last data filed at 02/15/2025 0700 Gross per 24 hour Intake 1592.9 ml Output 300 ml Net 1292.9 ml General: Well-developed, well-nourished. Appears uncomfortable. HENT: Normocephalic, atraumatic. Eyes non-icteric, conjunctive non-injected. Nose: patent nares. Mouth: moist mucous membranes. Neck: Full ROM. Trachea appears midline. Chest/Cardiovascular: Regular rate, regular rhythm. No audible murmurs. Pulmonary: No increased work of breathing. Speaking in full sentences. No wheezes, rhonchi, or rales. Abdomen: Soft. No distention. Upper abdominal TTP. Extremities: Normal ROM of all four extremities. No obvious deformities. No LE edema or calf pain. Skin: No visible rashes on exposed skin. No pallor or jaundice. Neuro: CN II-XII grossly intact. Awake and answering questions appropriately. Current Facility-Administered Medications: saline FLUSH syringe 10 mL, 10 mL, Intravenous, Q8H, Yany Ingram MD, 10 mL at 02/15/25 0705 saline FLUSH syringe 10 mL, 10 mL, Intravenous, PRN, Yany Ingram MD, 10 mL at 02/15/25 0805 acetaminophen (TYLENOL) tablet 1,000 mg, 1,000 mg, oral, QID, Carlene Rosen PA-C, 1,000 mgat 02/14/25 2220 D50W IV syringe 25-50 mL, 25-50 mL, Intravenous, PRN, Molly Epps PA-C, 25 mL at 02/14/25 2041 dextrose 5% in water-lactated ringers IV infusion, , Intravenous, CONTINUOUS, Danielle Carrero, DO, Last Rate: 125 mL/hr at 02/15/25 0230, Restarted at 02/15/25 0230 famotidine (PEPCID) injection 20 mg, 20 mg, Intravenous, Twice Daily, Yany Ingram MD, 20 mg at 02/15/25 0802 gabapentin (NEURONTIN) capsule 300 mg, 300 mg, oral, TID, Henna Paniagua APRN, REBECA, 300 mg at 02/14/25 2220 glucagon, human recombinant (Glucagen) injection (conc: 1 mg/mL) 1 mg, 1 mg, IntraMUSCULAR, Q 15 MINS PRN, Molly Epps PA-C guaiFENesin (ROBITUSSIN) syrup 100 mg, 100 mg, oral, Q4H PRN, Danielle Carrero, DO, 100 mg at 02/14/25 0417 HYDROmorphone (Dilaudid) syringe 0.5-1 mg, 0.5-1 mg, Intravenous, Q4H PRN, Henna Paniagua APRN, ANDROID DEVELOPER HYDROmorphone (DILAUDID) tablet 2-4 mg, 2-4 mg, oral, Q4H PRN, Henna Paniagua APRN, REBECA, 4 mg at 02/15/25 0046 hydrOXYzine pamoate (Vistaril) capsule 25-50 mg, 25-50 mg, oral, Q6H PRN, Carlene Rosen PA-C, 50 mg at 02/14/25 1618 lidocaine (LMX-4) topical cream 1 Application, 1 Application, topical, PRN, Yany Ingram MD lidocaine 1% injection (conc: 10 mg/mL) 0.1-0.3 mL, 0.1-0.3 mL, Intradermal, PRN, Yany Ingram MD MAGNESIUM REPLACEMENT INTRAVENOUS - NOT FOR DOCUMENTATION PURPOSES, , Intravenous, PER PROTOCOL, Yany Ingram MD methocarbamoL (ROBAXIN) tablet 500-1,000 mg, 500-1,000 mg, oral, QID, Molly Epps PA-C, 500mg at 02/14/252219 [Held by provider] metroNIDAZOLE (FLAGYL) tablet 500 mg, 500 mg, oral, Q8H, Loly Castaneda PA-C,500 mg at 02/13/252113 nicotine (NICOTROL) 7 mg/24 hr patch 7 mg, 1 patch, Transdermal, DAILY, Carlene Rosen PA-C, 7 mg at 02/14/25 0846 ondansetron (Zofran) injection 4-8 mg, 4-8 mg, Intravenous, Q8H PRN, 4 mg at 02/15/25 0801 OR ondansetron (Zofran) disintegrating tablet 4-8 mg, 4-8 mg, oral, Q8H PRN, Carlene Rosen PA-C, 4 mg at 02/15/25 0109 pantoprazole (Protonix) delayed release tablet 40 mg, 40 mg, oral, Twice Daily, Taylor Gutierrez MD, 40 mg at 02/14/251956 piperacillin-tazobactam (ZOSYN) 3.375 g in sodium chloride 0.9 % 100 mL IV piggyback, 3.375 g, Intravenous, Q8H (NS), Danielle Carrero, DO, Last Rate: 25 mL/hr at 02/15/25 0706, 3.375 g at 02/15/25 0706 polyethylene glycol (MIRALAX) packet 17 g, 17 g, oral, DAILY, Carlene Rosen PA-C POTASSIUM REPLACEMENT INTRAVENOUS - NOT FOR DOCUMENTATION PURPOSES, , Intravenous, PER PROTOCOL, Yany Ingram MD POTASSIUM REPLACEMENT ORAL - NOT FOR DOCUMENTATION PURPOSES, , oral, PER PROTOCOL, Yany Ingram MD prochlorperazine (COMPAZINE) injection 5-10 mg, 5-10 mg, Intravenous, Q6H PRN, Lanie Sotelo, PRASANNA,STOVE INSTALLER, 5 mg at 02/14/251954 saline with benzyl alcohol injection 0.1-0.3 mL, 0.1-0.3 mL, Intradermal, PRN, Yany Ingram MD senna (SENOKOT) tablet 8.6-17.2 mg, 1-2 tablet, oral, QPM, Carlene Rosen PA-C, 17.2 mg at 02/12/252021 [Held by provider] sulfamethoxazole 800 mg-trimethoprim 160 mg (BACTRIM DS;SEPTRA DS) tablet 160 mg, 1 tablet, oral, Twice Daily, Loly Castaneda PA- C, 160 mg at 02/13/251808 vancomycin (VANCOCIN) 1,000 mg in sodium chloride 0.9 % 250 mL IV piggyback, 20 mg/kg, Intravenous,Q18H (NS), Carrington Erickson (February), Pharm D, Last Rate: 250 mL/hr at 02/15/25 0121, 1,000 mg at 02/15/25 0121 Vancomycin Pharmacy Consult, 1 Consult, N/A, PRN, Danielle Carrero, DO Results for orders placed or performed during the hospital encounter of 02/08/25 (from the past 24 hours) POCT Glucose Meter Result Value Ref Range GLUCOSE WB METER 45 (LL) 60 - 100 mg/dL POCT Glucose Meter Result Value Ref Range GLUCOSE WB METER 49 (LL) 60 - 100 mg/dL POCT Glucose Meter Result Value Ref Range GLUCOSE WB METER 73 60 - 100 mg/dL POCT Glucose Meter Result Value Ref Range GLUCOSE WB METER 57 (L) 60 - 100 mg/dL Magnesium Result Value Ref Range Magnesium 2.0 1.6 - 2.6 mg/dL POCT Glucose Meter Result Value Ref Range GLUCOSE WB METER 133 (H) 60 - 100 mg/dL POCT Glucose Meter Result Value Ref Range GLUCOSE WB METER 61 60 - 100 mg/dL POCT Glucose Meter Result Value Ref Range GLUCOSE WB METER 81 60 - 100 mg/dL CBC (HGB,HCT,WBC,RBC,Platelet) Result Value Ref Range WBC 7.4 4.3 - 10.8 K/uL RBC 2.22 (L) 4.20 - 5.40 M/uL Hemoglobin 7.6 (L) 12.0 - 16.0 gm/dL Hematocrit 24.7 (L) 36.0 - 48.0 % MCV 111 (H) 80 - 100 fL MCH 34 (H) 27 - 33 pg MCHC 31 (L) 33 - 36 gm/dL RDW 14.8 (H) 11.5 - 14.5 % Platelet Count 236 150 - 400 K/UL MPV 9.4 6.5 - 12 fL POCT Glucose Meter Result Value Ref Range GLUCOSE WB METER 77 60 - 100 mg/dL Wound: Skin Condition/Wound Non-Pressure Leathery;Flaky Right;Lower Foot (Active) First Observed/Origin Date/First Observed/Origin Time: 02/08/25 0118 Primary Wound Type: Skin Condition/Wound Non-Pressure Present on Original Admission: Yes Skin Condition Type: Leathery;Flaky Orientation: Right;Lower Location: Foot Wound: Skin Condition/Wound Non-Pressure Flaky;Leathery Lower;Left Foot (Active) First Observed/Origin Date/First Observed/Origin Time: 02/08/25 0000 Primary Wound Type: Skin Condition/Wound Non-Pressure Present on Original Admission: Yes Skin Condition Type: Flaky;Leathery Orientation: Lower;Left Location: Foot Wound: Skin Condition/Wound Non-Pressure Reddened (Non-Pressure Related) Left Hand (Active) First Observed/Origin Date/First Observed/Origin Time: 02/08/25 0000 Primary Wound Type: Skin Condition/Wound Non-Pressure Present on Original Admission: Yes Skin Condition Type: Reddened (Non-Pressure Related) Orientation: Left Location: Hand Wound: Skin Condition/Wound Non-Pressure Reddened (Non-Pressure Related) Right Hand (Active) First Observed/Origin Date/First Observed/Origin Time: 02/08/25 0000 Primary Wound Type: Skin Condition/Wound Non-Pressure Present on Original Admission: Yes Skin Condition Type: Reddened (Non-Pressure Related) Orientation: Right Location: Hand Wound: Skin Condition/Wound Non-Pressure Reddened (Non-Pressure Related) Right Hand (Active) First Observed/Origin Date/First Observed/Origin Time: 02/08/25 0000 Primary Wound Type: Skin Condition/Wound Non-Pressure Present on Original Admission: Yes Skin Condition Type: Reddened (Non-Pressure Related) Orientation: Right Location: Hand Wound: Surgical/Procedure Site Incision Right Finger (Active) First Observed/Origin Date/First Observed/Origin Time: 02/09/25 1047 Primary Wound Type: Surgical/Procedure Site Incision Type: Incision Orientation: Right Location: Finger Description: Right hand index finger, Reopened for I&D on 02/11/25 @ 1246 Additional comments: I reviewed the patient's new clinical lab test results. I reviewed the patient's medications. I reviewed the patient's new imaging test results. I reviewed old records and previous notes. I discussed the patient's care with Dr. Pickering. Imaging: XR ABDOMEN FLAT & UPRIGHT Result Date: 02/15/2025 XR ABDOMEN FLAT & UPRIGHT DATE: 02/15/2025 13:33 CLINICAL DATA: Pain. Acute osteomyelitis of theright hand. Abdominal pain. COMPARISON: None FINDINGS/ IMPRESSION: There are postsurgical changes consistent with cholecystectomy. There is no free intraperitoneal air. There is an air-fluid level within the stomach. There is a paucity of bowel gas. There are few loops of nondilated bowel in the left pelvis with air-fluid levels. There are patchy infiltrates of the lung bases. REPORT SIGNED BY DR. Diane Elizalde XR CHEST AP PORT Result Date: 02/13/2025 EXAM: XR CHEST AP PORT DATE: 02/13/2025 22:13 INDICATION: Postop finger amputation for gangrene withosteomyelitis. Cough. COMPARISON: None TECHNIQUE: AP portable chest FINDINGS: Hazy infiltrate in the right mid and lower lung. No dense consolidation or pleural effusion. Shallow lung expansion. Cardi omediastinal silhouette is normal. IMPRESSION: Right lung infiltrate. REPORT SIGNED BY MD Molly Rhodes PA-C, [facility] Available on [employer] or [employer] [phone] * Michael Bishop RN - 02/15/2025 6:10 AM CDT Med-Surg Care Progression Note Type: Shift to shift summary Length of stay: 7 days Code Status: Full Code Primary Problem: Osteomyelitis, Right hand pain PMH: Buerger's disease and ongoing tobacco use with a history of spontaneous amputation of multipledigits that presented to outside hospital with wet gangrene of the right hand. 02/09: Right hand I&D, Amputation of right index finger 02/11: I&D of right hand Summary: No acute changes this shift. C/O Nausea, given zofran x1 w/relief. Patient had one PIV, soD50W IV fluids was held for a while while patient had IV zosyn and vanco infused over a couple of hours. BG was checked and it was 61. D50W IV fluids was restarted, and patient's BG when rechecked after 2hours bumped back up to 81. Patient was comfortable and sleeping. Dressing changed to R hand not done this overnight shift because previous evening shift RN had completed this task, it is scheduled BID. F- Feeding & Fluids: Tolerating regular diet w/thin liquids A- Analgesic & Anticoagulation: Comfort Goal: Numeric, Verbal, Faces: 4 - Moderate Analgesic C/O pain 10/10 to R hands. PRN Dilaudid (4mg) given, with relief. Anticoagulation/DVT prevention & plan SCDs S- Skin: Regulo Subcategory Concern(s): Sensory Perception: Slightly Limited Sensory Interventions:Appropriate support surface and Pain control Moisture: Rarely Moist Activity: Walks Occasionally Activity Interventions: Low air loss mattress and Safer bundle Nutrition: Adequate Nutrition Interventions: Calorie intake Mobility: Slightly Limited Mobility Interventions: TAPS and Low air loss support Friction and Shear: No Apparent Problem Total Regulo Score: 19: See flowsheet for skin conditions T- Telemetry: Rhythm: Sinus Rhythm Ectopy: None No tele E- Emotional & Neuro: Participating in cares Neuro Alert and Oriented R- Respiratory: On room air H- Head OUT of Bed & Activity: Activate Fall Alert? (Enter 1 or 0): (not recorded) Ambulating in room and to BR, SBA Progressive mobility Phases 5-7: Phase 5: 10 steps or more U- Urologic/bowel: Size: Small (02/15/2025 2:15 AM) Voiding WNL, BM loose stool, to BR. G- Glycemic Control: Accuchecks q6hrs. D50W LR fluids infusing d/t hypoglycemia. T- Treatment: Pain management. Post op cares/interventions - wound care. K/Mag protocol. IV antibx regimen. Plastics/ID following. I- Invasive Devices: PIV, patent infusing. D- Discharge: TBD. * Rubia Velásquez RN - 02/14/2025 10:37 PM CDT Med-Surg Care Progression Note Type: Shift to shift summary Length of stay: 6 days Code Status: Full Code Primary Problem: Osteomyelitis, Right hand pain PMH: Buerger's disease and ongoing tobacco use with a history of spontaneous amputation of multipledigits that presented to outside hospital with wet gangrene of the right hand. 02/09: Right hand I&D, Amputation of right index finger 02/11: I&D of right hand Summary: K/Mag at goal now. Nauseous - compazine given. BG was 57. Ate some peanut butter bread andgave D50W IV syringe 25ml. BG recheck 133. Now on Q6H BG checks. IVF D5W increase to 125ml/hr. F- Feeding & Fluids: Tolerating regular diet with thin liquids A- Analgesic & Anticoagulation: Comfort Goal: Numeric, Verbal, Faces: 4 - Moderate Analgesic Scheduled Tylenol and Robaxin, PRN PO Dilaudid Anticoagulation/DVT prevention & plan SCDs S- Skin: Regluo Subcategory Concern(s): Sensory Perception: Slightly Limited Sensory Interventions:Appropriate support surface and Pain control Moisture: Rarely Moist Activity: Walks Occasionally Activity Interventions: Low air loss mattress Nutrition: Probably Inadequate Nutrition Interventions: Calorie intake Mobility: No Limitations Mobility Interventions: Low air loss support Friction and Shear: No Apparent Problem Total Regulo Score: 19: wound care BID - Last done 2229. T- Telemetry: Rhythm: Sinus Rhythm Ectopy: None No tele E- Emotional & Neuro: Participating in cares Neuro Alert and Oriented R- Respiratory: On room air H- Head OUT of Bed & Activity: Activate Fall Alert? (Enter 1 or 0): (not recorded) Ambulating SBA to bathroom. Early mobility Phases 1-4: Phase 4: Ambulation U- Urologic/bowel: Size: Medium (02/14/2025 9:05 AM) Voiding in bathroom. Reported loose BM. G- Glycemic Control: Not applicable T- Treatment: pain control, wound care, K/Mg protocol, plastics/ID following, IV abx I- Invasive Devices: PIV x1 D- Discharge: TBD * Danielle Carrero DO - 02/14/2025 8:21 PM CDT Cross Cover Note: Received page by RN regarding patient with glucose 57. PIV removed earlier d/t pain and replacementpending. Patient awake and alert, able to eat bread with peanut butter. Has had issues with hypoglycemia earlier today as well. On D5W @75. Will increase to 125 mL/hr. Danielle Carrero DO [facility] [place] Medicine Update: Bg 61 overnight. Per RN, D5w was paused for antibiotics. Restarting D5w now. * Nadia Martinez, RD - 02/14/2025 3:40 PM CDT Nutrition Assessment Reason for Assessment: LOS MST: No data recorded Malnutrition : Does not meet malnutrition criteria This may change per provider's clinical assessment. 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 Before this, good intakes recorded. Ordering 2-3 good meals daily (entree +1-3 sides). PRN nausea meds being given. Daughter reports dx of bleeding ulcer, was supposed to get EGD today outpatient per RN note. Hgb appears to have trended down during hospital say(10gm/dL 02/09 - > 8.1gm/dL today). Pt reports lower appetite past 2d d/t nausea r/t pneumonia perpt. Wanting to order breeze and boost on her own, encouraged her to do so. 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 Other Pertinent Factors: NA Anthropometric/Physical: Height: 5' 1 (154.9 cm) Admitting Weight: 53.6 kg (118 lb 2.7 oz), Actual Weight: 53.6 kg (118 lb 2.7 oz) IBW: 50 kg +/- 10%, 107% IBW Body mass index is 22.33 kg/m??., BMI Category: Normal (18.5-24.9) Actual weight change at admission: not able to assess due to limited recent weight history available Clinically significant for malnutrition: Insufficient data to assess Weight History: Wt Readings from Last 10 Encounters: 02/08/25 53.6 kg (118 lb 2.7 oz) Skin: Reviewed Wound: Skin Condition/Wound Non-Pressure Leathery;Flaky Right;Lower Foot (Active) First Observed/Origin Date/First Observed/Origin Time: 02/08/25 0118 Primary Wound Type: Skin Condition/Wound Non-Pressure Present on Original Admission: Yes Skin Condition Type: Leathery;Flaky Orientation: Right;Lower Location: Foot Wound: Skin Condition/Wound Non-Pressure Flaky;Leathery Lower;Left Foot (Active) First Observed/Origin Date/First Observed/Origin Time: 02/08/25 0000 Primary Wound Type: Skin Condition/Wound Non-Pressure Present on Original Admission: Yes Skin Condition Type: Flaky;Leathery Orientation: Lower;Left Location: Foot Wound: Skin Condition/Wound Non-Pressure Reddened (Non-Pressure Related) Left Hand (Active) First Observed/Origin Date/First Observed/Origin Time: 02/08/25 0000 Primary Wound Type: Skin Condition/Wound Non-Pressure Present on Original Admission: Yes Skin Condition Type: Reddened (Non-Pressure Related) Orientation: Left Location: Hand Wound: Skin Condition/Wound Non-Pressure Reddened (Non-Pressure Related) Right Hand (Active) First Observed/Origin Date/First Observed/Origin Time: 02/08/25 0000 Primary Wound Type: Skin Condition/Wound Non-Pressure Present on Original Admission: Yes Skin Condition Type: Reddened (Non-Pressure Related) Orientation: Right Location: Hand Wound: Skin Condition/Wound Non-Pressure Reddened (Non-Pressure Related) Right Hand (Active) First Observed/Origin Date/First Observed/Origin Time: 02/08/25 0000 Primary Wound Type: Skin Condition/Wound Non-Pressure Present on Original Admission: Yes Skin Condition Type: Reddened (Non-Pressure Related) Orientation: Right Location: Hand Wound: Surgical/Procedure Site Incision Right Finger (Active) First Observed/Origin Date/First Observed/Origin Time: 02/09/25 1047 Primary Wound Type: Surgical/Procedure Site Incision Type: Incision Orientation: Right Location: Finger Description: Right hand index finger, Reopened for I&D on 02/11/25 @ 1246 Digestive System: no concerns Last bowel movement: Size: Medium (02/14/2025 9:05 AM) Bowel Meds: Scheduled per MAR Labs: Lab Results Component Value Date CREACTIVEPRT 8.2 (H) 02/08/2025 GLUCOSE 48 (LL) 02/14/2025 GLUCOSE 64 (L) 02/13/2025 GLUCOSE 69 (L) 02/12/2025 Lab Results Component Value Date SODIUM 141 02/14/2025 SODIUM 139 02/13/2025 POTASSIUM 3.8 02/14/2025 MAGNESIUM 1.6 02/14/2025 CALCIUMSERUM 8.0 (L) 02/14/2025 BUNUREANRO 7 (L) 02/14/2025 CREATININE 0.65 02/14/2025 Medications Reviewed: Current Facility-Administered Medications Medication Dose Route Frequency Provider Last Rate Last Admin saline FLUSH syringe 10 mL 10 mL Intravenous Q8H Yany Ingram MD 10 mL at 02/14/25 1406 saline FLUSH syringe 10 mL 10 mL Intravenous PRN Yany Ingram MD 10 mL at 02/14/25 1013 acetaminophen (TYLENOL) tablet 1,000 mg 1,000 mg oral QID Carlene Rosen PA-C 1,000 mg at 02/14/25 1203 D50W IV syringe 25-50 mL 25-50 mL Intravenous PRN Molly Epps PA-C 25 mL at 02/14/25 0933 dextrose 5% in water-lactated ringers IV infusion Intravenous CONTINUOUS Molly Epps PA-C famotidine (PEPCID) injection 20 mg 20 mg Intravenous Twice Daily Yany Ingram MD 20 mg at02/14/25 0859 gabapentin (NEURONTIN) capsule 300 mg 300 mg oral TID Henna Paniagua APRN, CNP 300 mg at 02/14/25 1406 glucagon, human recombinant (Glucagen) injection (conc: 1 mg/mL) 1 mg 1 mg IntraMUSCULAR Q 15 MINS PRN Molly Epps PA-C guaiFENesin (ROBITUSSIN) syrup 100 mg 100 mg oral Q4H PRN Danielle Carrero DO 100 mg at 02/14/25 0417 HYDROmorphone (Dilaudid) syringe 0.5-1 mg 0.5-1 mg Intravenous Q4H PRN Henna Paniagua APRN, CNP HYDROmorphone (DILAUDID) tablet 2-4 mg 2-4 mg oral Q4H PRN Henna Paniagua APRN ANDROID DEVELOPER 4 mg at 02/14/25 1618 hydrOXYzine pamoate (Vistaril) capsule 25-50 mg 25-50 mg oral Q6H PRN Carlene Rosen PA-C 50 mg at 02/14/25 1618 lidocaine (LMX-4) topical cream 1 Application 1 Application topical PRN Yany Ingram MD lidocaine 1% injection (conc: 10 mg/mL) 0.1-0.3 mL 0.1-0.3 mL Intradermal PRN Yany Ingram MD MAGNESIUM REPLACEMENT INTRAVENOUS - NOT FOR DOCUMENTATION PURPOSES Intravenous PER PROTOCOL Yany Ingram MD methocarbamoL (ROBAXIN) tablet 500-1,000 mg 500-1,000 mg oral QID Molly Epps PA-C [Held by provider] metroNIDAZOLE (FLAGYL) tablet 500 mg 500 mg oral Q8H Loly Castaneda PA-C 500 mg at 02/13/252113 nicotine (NICOTROL) 7 mg/24 hr patch 7 mg 1 patch Transdermal DAILY Carlene Rosen PA-C 7 mg at 02/14/25 0846 ondansetron (Zofran) injection 4-8 mg 4-8 mg Intravenous Q8H PRN Carlene Rosen PA-C 4 mg at 02/14/25 1203 Or ondansetron (Zofran) disintegrating tablet 4-8 mg 4-8 mg oral Q8H PRN Carlene Rosen PA-C 4mg at 02/14/25 0858 pantoprazole (Protonix) delayed release tablet 40 mg 40 mg oral Twice Daily Taylor Gutierrez MD 40 mg at 02/14/25 0846 piperacillin-tazobactam (ZOSYN) 3.375 g in sodium chloride 0.9 % 100 mL IV piggyback 3.375 g Intravenous Q8H (NS) Danielle Carrero DO 25 mL/hr at 02/14/25 1403 3.375 g at 02/14/25 1403 polyethylene glycol (MIRALAX) packet 17 g 17 g oral DAILY Carlene Rosen PA-C POTASSIUM REPLACEMENT INTRAVENOUS - NOT FOR DOCUMENTATION PURPOSES Intravenous PER PROTOCOL Yany Ingram MD POTASSIUM REPLACEMENT ORAL - NOT FOR DOCUMENTATION PURPOSES oral PER PROTOCOL Yany Ingram MD prochlorperazine (COMPAZINE) injection 5-10 mg 5-10 mg Intravenous Q6H PRN Lanie Sotelo, DNP,STOVE INSTALLER saline with benzyl alcohol injection 0.1-0.3 mL 0.1-0.3 mL Intradermal PRN Yany Ingram MD senna (SENOKOT) tablet 8.6-17.2 mg 1-2 tablet oral QPM Carlene Rosen PA-C 17.2 mg at 02/12/252021 [Held by provider] sulfamethoxazole 800 mg-trimethoprim 160 mg (BACTRIM DS;SEPTRA DS) tablet 160 mg1 tablet oral Twice Daily Loly Castaneda PA-C 160 mg at 02/13/25 1809 [START ON 02/15/2025] vancomycin (VANCOCIN) 1,000 mg in sodium chloride 0.9 % 250 mL IV piggyback 20mg/kg Intravenous Q18H (NS) Carrington Erickson (February), Pharm D Vancomycin Pharmacy Consult 1 Consult N/A PRN Danielle Carrero DO Nutrition Diagnosis Inadequate protein-energy intake related to nausea and/or emesis as evidenced by patient or family reports and/or nutrition history available through EMR review Active Nadia Martinez RD * Maria Guadalupe Cagle RN - 02/14/2025 2:57 PM CDT Med-Surg Care Progression Note Type: Shift to shift summary Length of stay: 6 days Code Status: Full Code Primary Problem: Osteomyelitis, Right hand pain 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 02/09: Right hand I&D, Amputation of right index finger 02/11: I&D of right hand Summary: 02/13 CXR showed R. Lung infiltrate, pneumonia. Hgb 8.1. Pt back on IV abx. BG 43 this AM, pt alert and oriented, notified. 25mL D50 given. BG corrected to 73. Pt with very poor PO intake d/t nausea. Emesis of 300mL this shift. PRN Zofran given x2. Daughter concerned with possible GI issue as pt had been diagnosed with a bleeding ulcer, was supposed to have an endoscopy yesterday but did not due to being hospitalized. [facility] notified of these concerns. Continuous D5 IVF ordered, waiting to hang when IV abx finishes infusing. F- Feeding & Fluids: Regular diet / thin liquids. Not tolerating food d/t nausea. A- Analgesic & Anticoagulation: Comfort Goal: Numeric, Verbal, Faces: 4 - Moderate Analgesic Scheduled Tylenol and Robaxin, PRN Dilaudid Anticoagulation/DVT prevention & plan SCDs S- Skin: Regulo Subcategory Concern(s): Sensory Perception: Slightly Limited Sensory Interventions:Appropriate support surface and Pain control Moisture: Rarely Moist Activity: Walks Occasionally Activity Interventions: Low air loss mattress Nutrition: Adequate Nutrition Interventions: Calorie intake Mobility: Slightly Limited Mobility Interventions: Low air loss support Friction and Shear: No Apparent Problem Total Regulo Score: 19: wound care BID - completed by plastics AM shift T- Telemetry: Rhythm: Sinus Rhythm Ectopy: None No tele E- Emotional & Neuro: Participating in cares Neuro Alert and Oriented R- Respiratory: On room air H- Head OUT of Bed & Activity: Activate Fall Alert? (Enter 1 or 0): (not recorded) Ambulating independently to bathroom. Early mobility Phases 1-4: Phase 4: Ambulation U- Urologic/bowel: Size: Medium (02/14/2025 9:05 AM) Voiding in bathroom. 1 BM this shift. G- Glycemic Control: D50 PRN given for hypoglycemia T- Treatment: pain mgmt, wound care, K/Mg protocol, plastics/ID/HM following, IV abx I- Invasive Devices: PIVx1 D- Discharge: TBD * Tyesha Morales - 02/14/2025 1:51 PM CDT New Referral [facility] ([facility]) received referral for possible home IV abx Pt does have full coverage for this service, however its questionable if she would be able to manage IV abx at home due to her hand injuries/surgeries and fluid address. [facility] would not be prepared to take Pt over the weekend if she discharges on IV abx, will continue tofollow next week if she is still here and re assess her ability and appropriateness for home infusion; but a weekend discharge for her would not be manageable from our end with above concerns. [facility] will follow until discharge and provide further information/teaching as needed. Tyesha Morales RN [facility] Clinical Liaison * Conrad Lucio MD - 02/14/2025 1:30 PM CDT HOSPITAL ID FOLLOW-UP NOTE ASSESSMENT: Wet gangrene, and osteomyelitis of Rt index finger, s/p amputation at MCP joint (02/09, 02/11). Intraop cx on 02/09 with MRSA, E.coli and mixed anaerobes. she had the second metacarpal amputated on 02/11, and cx with S.aureus, GNB. Buerger's disease, smoker New cough with rt lung infiltrate on 02/13 RECOMMENDATIONS: Ok to continue IV vancomycin, and zosyn - she technically did not miss any days of above abx. Doubt HCAP while on broad spectrum abx, on room air and denies sob. - will wait for sputum culture, and if she can't bring up any sputum, and remains stable clinically, switch back to bactrim+ flagyl in next 1-2 days 2. Sputum culture INTERVAL HISTORY New cough with rt lung infiltrate on 02/13 SUBJECTIVE: Denies sob. Some cough. Sleeping comfortably on room air No new complaint. ROS: As noted in Subjective above. MEDICATIONS: Reviewed in the Order Review tab in EMR ALLERGIES: No Known Allergies EXAMINATION: Vital Signs: BP (!) 139/93 Pulse 78 Temp 97.8 ??F (36.6 ??C) Resp 16 Ht 5' 1 (1.549 m) Wt 53.6 kg (118 lb 2.7 oz) LMP (LMP Unknown) SpO2 93% No BMI 22.33 kg/m?? Temp (24hrs), Av.2 ??F (36.8 ??C), Min:97.8 ??F (36.6 ??C), Max:98.5 ??F (36.9 ??C) Weight: 53.6 kg (118 lb 2.7 oz) NAD Eye: normal lids and conjunctivae, eom intact HENT: NC, AT. Normal external nose and ears. Supple neck Lungs - normal effort, speaks full sentences on room air. Clear bilaterally Neuro - AAO x3, answer questions appropriately Skin - no rash. NEW DATA/RESULTS: Micro: Results for orders placed or performed during the hospital encounter of 02/08/25 Culture-Anaerobe Collection Time: 02/11/25 1:03 PM Specimen: Index finger right; Site-Microbiology Result Value Ref Range CULT-ANAEROBE No anaerobic growth isolated in 2 days. Final report to follow. Culture-Aerobic Collection Time: 02/11/25 1:03 PM Specimen: Index finger right; Site-Microbiology Result Value Ref Range Aerobic Culture (A) Few colonies of Methicillin resistant Staphylococcus aureus (MRSA) Aerobic Culture One colony of Escherichia coli (A) Gram Stain Result No bacteria seen. Gram Stain Result No WBC's seen / LPF Susceptibility Escherichia coli - TONIO Ampicillin <=2.00 Sensitive Ampicillin/Sulbactam <=2 Sensitive Ceftriaxone <=0.25 Sensitive Ertapenem <=0.12 Sensitive Gentamicin <=1.00 Sensitive Levofloxacin <=0.12 Sensitive Meropenem <=0.25 Sensitive Piperacillin/Tazobactam <=4 Sensitive Trimethoprim/Sulfamethoxazole <=20 Sensitive Methicillin resistant Staphylococcus aureus (MRSA) - TONIO Clindamycin 0.25 Sensitive Doxycycline <=0.50 Sensitive Erythromycin >=8.00 Resistant Oxacillin >=4.00 Resistant Rifampin <=0.50 Sensitive Tetracycline <=1.00 Sensitive Trimethoprim/Sulfamethoxazole <=10 Sensitive Vancomycin 1.00 Sensitive Lab: WBC Date Value Ref Range Status 02/14/2025 13.1 (H) 4.3 - 10.8 K/uL Final Creatinine Date Value Ref Range Status 02/14/2025 0.65 0.55 - 1.02 mg/dL Final Est GFR (CKD-EPI) Date Value Ref Range Status 02/14/2025 >60.00 >60.00 mL/min/1.73m2 Final Comment: Calculation based on the Chronic Kidney Disease Epidemiology Collaboration (CKD- EPI) equation refitwithout adjustment for race. Imaging: Imaging results reviewed personally. Conrad Lucio MD Infectious diseases * Lanie Sotelo DNP,STOVE INSTALLER - 02/14/2025 10:01 AM CDT PLASTIC SURGERY PROGRESS NOTE POD # 3: Debridement of right hand, partial resection of 2nd metacarpal POD #5: 1. Incision and drainage of extensive collar-button subcutaneous abscess involving radial half of the palm 2. Disarticulation of right index finger through metacarpophalangeal joint SUBJECTIVE Resting in bed, states that she has pneumonia and that her blood sugar was 45 this AM. She is agreeable to dressing change at bedside. OBJECTIVE Temp (24hrs), Av.2 ??F (36.8 ??C), Min:97.8 ??F (36.6 ??C), Max:98.5 ??F (36.9 ??C) BP 130/73 Pulse 80 Temp 97.8 ??F (36.6 ??C) Resp 16 Ht 5' 1 (1.549 m) Wt 53.6 kg (118 lb2.7 oz) LMP (LMP Unknown) SpO2 93% No BMI 22.33 kg/m?? Intake/Output Summary (Last 24 hours) at 02/14/2025 1001 Last data filed at 02/14/2025 0125 Gross per 24 hour Intake 1413.87 ml Output -- Net 1413.87 ml Gen: Resting in bed, in NAD Cardiovascular: hemodynamically stable Respiratory: quiet, non-labored breathing. RA GI: tolerating PO Extremities: right hand: incisions intact to dorsal aspect, volar aspect with vessel loop, loop removed without difficulty. Skin with scant erythema. Scant bloody drainage on dressing. No purulent drainage or foul smelling drainage. Replaced dressing. Neuro: A&O. Speech: clear. Following commands : voiding Psych: appropriate affect Labs: WBC Date Value Ref Range Status 02/14/2025 13.1 (H) 4.3 - 10.8 K/uL Final 02/13/2025 12.7 (H) 4.3 - 10.8 K/uL Final 02/12/2025 21.6 (H) 4.3 - 10.8 K/uL Final Hemoglobin Date Value Ref Range Status 02/14/2025 8.1 (L) 12.0 - 16.0 gm/dL Final 02/13/2025 8.6 (L) 12.0 - 16.0 gm/dL Final 02/12/2025 8.4 (L) 12.0 - 16.0 gm/dL Final , No results found for: INR, Platelet Count Date Value Ref Range Status 02/14/2025 266 150 - 400 K/UL Final 02/13/2025 247 150 - 400 K/UL Final 02/12/2025 257 150 - 400 K/UL Final ASSESSMENT: 45 yo female with wet gangrene from Buerger's disease to right hand now s/p I &D x2and disarticulation of right index finger. PLAN: -no further plans to return to OR at this time. -ok to discharge from plastic surgery standpoint -dressing changes BID, sutures will need to be removed in 2 weeks. -appreciate ID recommendations -discussed with bedside RN and updated hospital med team Lanie Sotelo APRN, PRASANNA * Nellie Lucio PT - 02/14/2025 8:49 AM CDT PT re-eval attempted this AM. (PT previously signed off, however per discussion with OT yesterday, patient is requesting an HEP). Patient politely declined this AM due to fatigue. States her BG is inthe 40's - RN confirmed. Will re-attempt later today if able. Re-attempted 1109, patient still not feeling well per RN, will re-attempt in afternoon if able. * Molly Epps PA-C - 02/14/2025 8:42 AM CDT Images from the original note were not included. HOSPITALIST DIVISION PROGRESS NOTE Assessment and Plan Principal Problem: Osteomyelitis (HCC) Active Problems: Buerger disease (HCC) Tobacco dependence Anemia Gangrene of finger of right hand (HCC) Suspected HAP/VAP (gram negative or MRSA pneumonia) Hannah Loo is a 45 y.o. 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 R Index Finger Osteomyelitis s/p Amputation 02/09/25 s/p palm I&D R Hand Cellulitis s/p I&D Palm Abscess 02/11/25 Sepsis 2/2 above, resolved Buerger's disease of R middle finger, L middle finger Transferred from [place]. On arrival vital signs with borderline tachycardia otherwise benign. Workup notable for leukocytosis, CRP 8.2, meeting sepsis criteria with tachycardia, leukocytosis and source of infection. On exam, right second digit with wet gangrene, left second and fifth digit with necrosis. Patient underwent amputation and I&D on 02/09, and another right knee 02/11. Started on IV Vanco and Zosyn. Wound cultures growing MRSA and E. coli. -- Plastics consult, apprec recs: - Okay to discharge - Dressing changes bid, suture removal in 2 weeks -- ID consulted -- Continue IV Vanco, Zosyn -- Pain control: lakeisha tylenol, switched to PO dilaudid, gabapentin 300 mg TID, robaxin QID and prn vistaril Possible HAP versus atelectasis 02/11 2 PM, cross-cover patient for productive cough. Chest x-ray ordered showing right lung infiltrate. Concern for HAP therefore IV Vanco/Zosyn continued. Doubt hospital-acquired pneumonia given patient has been on very broad-spectrum antibiotics for quite a while. - ID following, continue IV Vanco/Zosyn for now - Attempt sputum culture, follow BC -- spirometer, ambulate REBECA, stable Baseline Cr 0.3-0.5. Creatinine natasha to 0.82, improving with fluids. Possibly related to IV antibiotics. - Follow Hypoglycemia Poor p.o. intake over the last couple of days due to illness. Patient not feeling well today. BG inthe 40s. - Gentle D5 IVF N/V, resolved PUD Dtr reports that pt has ulcers and was supposed to have EGD at [place] but wasn't able to advance scope (?stricture, unable to see report in careeverywhere). On PPI and pepcid. No evidence of bleeding currently but monitor. Reports some nausea/vomiting overnight (reports that it was due to bad dinner), improving w ant-emetics. -- monitor for bloody stools, hematmesis -- cont PPI, Pepcid -- zofran, compazine Tobacco dependence Pt reports that she is working on quitting. -- NRT while here (ok per Plastics) -- recommend complete cessation, patient in agreement Anemia, microcytic Hgb 10.1, unknown baseline. Has decreased down to 8.1. Suspect dilutional, no evidence of active bleeding - Daily hemoglobin Hypokalemia, Resolved K 3.2, replaced w improvement. -- K/MG protocol ?CAD EKG w poss prev septal MO of indeterminate age. -- outpt stress test # Lines: peripheral IV # Fluids: PO # Escalera: none # DVT Prophylaxis: lovenox pending plastics ok # Code status: Full code # Discharge criteria: Anticipate discharge in 1-2 day(s). Patient requires another night stay to stabilize blood glucose, ensure appropriate p.o. intake, requiring further IV abx due to possible HAP,awaiting final abx recommendations. # Post Hospital Plan: anticipate home SUBJECTIVE CHIEF COMPLAINT: Feeling poorly, malaise HPI: Overall feeling very poorly, no specific symptoms, no current cough, shortness of breath, chest pain, or other concerns at this time. Finger pain is managed with medications at this time OBJECTIVE Physical Exam: BP 130/73 Pulse 80 Temp 97.8 ??F (36.6 ??C) Resp 16 Ht 5' 1 (1.549 m) Wt 53.6 kg (118 lb2.7 oz) LMP (LMP Unknown) SpO2 93% No BMI 22.33 kg/m?? Intake/Output Summary (Last 24 hours) at 02/14/2025 0842 Last data filed at 02/14/2025 0125 Gross per 24 hour Intake 1413.87 ml Output -- Net 1413.87 ml General: Well-developed, well-nourished. Appears fatigued HENT: Normocephalic, atraumatic. Eyes non-icteric, conjunctive non-injected. Nose: patent nares. Mouth: moist mucous membranes. Neck: Full ROM. Trachea appears midline. Chest/Cardiovascular: Regular rate, regular rhythm. No audible murmurs. Pulmonary: No increased work of breathing. Speaking in full sentences. No wheezes, rhonchi, or rales. Abdomen: Soft. No tenderness or rebound. No distention. Extremities: Normal ROM of all four extremities. No LE edema or calf pain. Skin: No visible rashes on exposed skin. No pallor or jaundice. Neuro: CN II-XII grossly intact. Awake and answering questions appropriately. Current Facility-Administered Medications: saline FLUSH syringe 10 mL, 10 mL, Intravenous, Q8H, Yany Ingram MD, 10 mL at 02/14/25 0522 saline FLUSH syringe 10 mL, 10 mL, Intravenous, PRN, Yany Ingram MD, 10 mL at 02/09/25 0534 acetaminophen (TYLENOL) tablet 1,000 mg, 1,000 mg, oral, QID, Carlene Rosen PA-C, 1,000 mgat 02/14/25 0642 famotidine (PEPCID) injection 20 mg, 20 mg, Intravenous, Twice Daily, Yany Ingram MD, 20 mg at 02/13/25 1946 gabapentin (NEURONTIN) capsule 300 mg, 300 mg, oral, TID, Henna Paniagua APRN, REBECA, 300 mg at 02/14/25 0644 guaiFENesin (ROBITUSSIN) syrup 100 mg, 100 mg, oral, Q4H PRN, Danielle Carrero DO, 100 mg at 02/14/25 0417 HYDROmorphone (Dilaudid) syringe 0.5-1 mg, 0.5-1 mg, Intravenous, Q4H PRN, Henna Paniagua APRN, ANDROID DEVELOPER HYDROmorphone (DILAUDID) tablet 2-4 mg, 2-4 mg, oral, Q4H PRN, Henna Paniagua APRN, ANDROID DEVELOPER, 4 mg at 02/14/25 0521 hydrOXYzine pamoate (Vistaril) capsule 25-50 mg, 25-50 mg, oral, Q6H PRN, Carlene Rosen PA-C, 25 mg at 02/13/25 1623 lidocaine (LMX-4) topical cream 1 Application, 1 Application, topical, PRN, Yany Ingram MD lidocaine 1% injection (conc: 10 mg/mL) 0.1-0.3 mL, 0.1-0.3 mL, Intradermal, PRN, Yany Ingram MD MAGNESIUM REPLACEMENT INTRAVENOUS - NOT FOR DOCUMENTATION PURPOSES, , Intravenous, PER PROTOCOL, Yany Ingram MD methocarbamoL (ROBAXIN) tablet 500 mg, 500 mg, oral, QID, Henna Paniagua, STOVE INSTALLER, ANDROID DEVELOPER, 500 mg at 02/13/252113 [Held by provider] metroNIDAZOLE (FLAGYL) tablet 500 mg, 500 mg, oral, Q8H, Loly Castaneda PA-C,500 mg at 02/13/252113 nicotine (NICOTROL) 7 mg/24 hr patch 7 mg, 1 patch, Transdermal, DAILY, Carlene Rosen PA-C, 7 mg at 02/13/25 0813 ondansetron (Zofran) injection 4-8 mg, 4-8 mg, Intravenous, Q8H PRN, 4 mg at 02/14/25 0002 OR ondansetron (Zofran) disintegrating tablet 4-8 mg, 4-8 mg, oral, Q8H PRN, Carlene Rosen PA-C, 4 mg at 02/13/25 181 pantoprazole (Protonix) delayed release tablet 40 mg, 40 mg, oral, Twice Daily, Taylor Gutierrez MD, 40 mg at 02/13/25 194 piperacillin-tazobactam (ZOSYN) 3.375 g in sodium chloride 0.9 % 100 mL IV piggyback, 3.375 g, Intravenous, Q8H (NS), Danielle Carrero DO, Last Rate: 25 mL/hr at 02/14/25 0700, 3.375 g at 02/14/25 0700 polyethylene glycol (MIRALAX) packet 17 g, 17 g, oral, DAILY, Carlene Rosen PA-C POTASSIUM REPLACEMENT INTRAVENOUS - NOT FOR DOCUMENTATION PURPOSES, , Intravenous, PER PROTOCOL, Yany Ingram MD POTASSIUM REPLACEMENT ORAL - NOT FOR DOCUMENTATION PURPOSES, , oral, PER PROTOCOL, Yany Ingram MD prochlorperazine (COMPAZINE) injection 5-10 mg, 5-10 mg, Intravenous, Q6H PRN, Lanie Sotelo, DNP,STOVE INSTALLER saline with benzyl alcohol injection 0.1-0.3 mL, 0.1-0.3 mL, Intradermal, PRN, Yany Ingram MD senna (SENOKOT) tablet 8.6-17.2 mg, 1-2 tablet, oral, QPM, Carlene Rosen PA-C, 17.2 mg at 02/12/252021 [Held by provider] sulfamethoxazole 800 mg-trimethoprim 160 mg (BACTRIM DS;SEPTRA DS) tablet 160 mg, 1 tablet, oral, Twice Daily, Loly Castaneda PA- C, 160 mg at 02/13/25 180 vancomycin (VANCOCIN) 1,250 mg in sodium chloride 0.9 % 250 mL IV piggyback, 22 mg/kg, Intravenous,Q24H (NS), Luis Guzman, Pharm D, Last Rate: 166.67 mL/hr at 02/14/25 0524, 1,250 mg at 02/14/25 0524 Vancomycin Pharmacy Consult, 1 Consult, N/A, PRN, Danielle Carrero, DO Results for orders placed or performed during the hospital encounter of 02/08/25 (from the past 24 hours) Potassium, Serum Result Value Ref Range Potassium 3.4 3.4 - 5.1 mmol/L Potassium, Serum Result Value Ref Range Potassium 3.7 3.4 - 5.1 mmol/L Admit MRSA by PCR (For IP Use Only) Specimen: Nasal Result Value Ref Range Admit MRSA by PCR (A) No Methicillin Resistant Staph. Aureus (MRSA) detected by PCR. Methicillin Resistant Staph. Aureus (MRSA) detected by PCR. CBC (HGB,HCT,WBC,RBC,Platelet) Result Value Ref Range WBC 13.1 (H) 4.3 - 10.8 K/uL RBC 2.26 (L) 4.20 - 5.40 M/uL Hemoglobin 8.1 (L) 12.0 - 16.0 gm/dL Hematocrit 25.9 (L) 36.0 - 48.0 % MCV 115 (H) 80 - 100 fL MCH 36 (H) 27 - 33 pg MCHC 31 (L) 33 - 36 gm/dL RDW 14.7 (H) 11.5 - 14.5 % Platelet Count 266 150 - 400 K/UL MPV 9.4 6.5 - 12 fL Basic Metabolic Profile Magnesium Result Value Ref Range Sodium 141 136 - 145 mmol/L Potassium 3.8 3.4 - 5.1 mmol/L Chloride 109 (H) 98 - 108 mmol/L Carbon Dioxide 25 20 - 31 mmol/L BUN (Urea Nitro) 7 (L) 9 - 23 mg/dL Creatinine 0.65 0.55 - 1.02 mg/dL Est GFR (CKD-EPI) >60.00 >60.00 mL/min/1.73m2 Glucose 48 (LL) 74 - 106 mg/dL Calcium, Serum 8.0 (L) 8.7 - 10.4 mg/dL Anion Gap 7.0 0.0 - 15.0 mmol/L Magnesium 1.6 1.6 - 2.6 mg/dL Wound: Skin Condition/Wound Non-Pressure Leathery;Flaky Right;Lower Foot (Active) First Observed/Origin Date/First Observed/Origin Time: 02/08/25 0118 Primary Wound Type: Skin Condition/Wound Non-Pressure Present on Original Admission: Yes Skin Condition Type: Leathery;Flaky Orientation: Right;Lower Location: Foot Wound: Skin Condition/Wound Non-Pressure Flaky;Leathery Lower;Left Foot (Active) First Observed/Origin Date/First Observed/Origin Time: 02/08/25 0000 Primary Wound Type: Skin Condition/Wound Non-Pressure Present on Original Admission: Yes Skin Condition Type: Flaky;Leathery Orientation: Lower;Left Location: Foot Wound: Skin Condition/Wound Non-Pressure Reddened (Non-Pressure Related) Left Hand (Active) First Observed/Origin Date/First Observed/Origin Time: 02/08/25 0000 Primary Wound Type: Skin Condition/Wound Non-Pressure Present on Original Admission: Yes Skin Condition Type: Reddened (Non-Pressure Related) Orientation: Left Location: Hand Wound: Skin Condition/Wound Non-Pressure Reddened (Non-Pressure Related) Right Hand (Active) First Observed/Origin Date/First Observed/Origin Time: 02/08/25 0000 Primary Wound Type: Skin Condition/Wound Non-Pressure Present on Original Admission: Yes Skin Condition Type: Reddened (Non-Pressure Related) Orientation: Right Location: Hand Wound: Skin Condition/Wound Non-Pressure Reddened (Non-Pressure Related) Right Hand (Active) First Observed/Origin Date/First Observed/Origin Time: 02/08/25 0000 Primary Wound Type: Skin Condition/Wound Non-Pressure Present on Original Admission: Yes Skin Condition Type: Reddened (Non-Pressure Related) Orientation: Right Location: Hand Wound: Surgical/Procedure Site Incision Right Finger (Active) First Observed/Origin Date/First Observed/Origin Time: 02/09/25 1047 Primary Wound Type: Surgical/Procedure Site Incision Type: Incision Orientation: Right Location: Finger Description: Right hand index finger, Reopened for I&D on 02/11/25 @ 1246 Additional comments: I reviewed the patient's new clinical lab test results. I reviewed the patient's medications. I reviewed the patient's new imaging test results. I reviewed old records and previous notes. I discussed the patient's care with Dr. Pickering. Molly Epps PA-C, [facility] Available on Circ[employer] or [employer] [phone] * Danielle Carrero DO - 02/13/2025 11:21 PM CDT Cross Cover Note: Received page by RN regarding productive cough with brown sputum. Requesting cough medicine. Guaifenesin and CXR ordered. CXR now showing right lung infiltrate. She is on HD5. Currently followed by ID and on bactrim and PO flagyl for MRSA, strep, E.coli and anaerobic coverage. For HAP coverage, would recommend Vanc/Cefepime however she would need to continue flagyl in that case for anaerobic coverage and she is reporting difficulty swallowing those PO antibiotics. For now, will just restart her Vanc/Zosyn and hold her flagyl/bactrim. ID has signed off, defer to primary team to discuss antibiotic changes with them in AM. 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 02/09: Right hand I&D, Amputation of right index finger 02/11: I&D of right hand Summary: K+ replaced for 2nd time today and now at goal. Developed new cough today. CXR showed right lung infiltrate. F- Feeding & Fluids: Tolerating regular diet with thin liquids A- Analgesic & Anticoagulation: Comfort Goal: Numeric, Verbal, Faces: 4 - Moderate Analgesic Scheduled Tylenol and Robaxin, PRN PO Dilaudid Anticoagulation/DVT prevention & plan SCDs S- Skin: Regulo Subcategory Concern(s): Sensory Perception: Slightly Limited Sensory Interventions:Appropriate support surface and Pain control Moisture: Rarely Moist Activity: Walks Occasionally Activity Interventions: Low air loss mattress Nutrition: Adequate Nutrition Interventions: Calorie intake Mobility: Slightly Limited Mobility Interventions: Low air loss support Friction and Shear: No Apparent Problem Total Regulo Score: 19: wound care BID - completed by plastics AM shift T- Telemetry: Rhythm: Sinus Rhythm Ectopy: None No tele E- Emotional & Neuro: Participating in cares Neuro Alert and Oriented R- Respiratory: On room air H- Head OUT of Bed & Activity: Activate Fall Alert? (Enter 1 or 0): (not recorded) Ambulating independently to bathroom. Early mobility Phases 1-4: Phase 4: Ambulation U- Urologic/bowel: Size: Medium (02/13/2025 2:00 PM) Voiding in bathroom. No BM this shift. G- Glycemic Control: Not applicable T- Treatment: pain control, wound care, K/Mg protocol, plastics/ID following, PO abx I- Invasive Devices: PIV x1 D- Discharge: TBD * Maria Guadalupe Cagle RN - 02/13/2025 2:51 PM CDT Med-Surg Care Progression Note Type: Shift to shift summary Length of stay: 5 days Code Status: Full Code Primary Problem: Osteomyelitis, Right hand pain Hx: Buerger's disease and ongoing tobacco use with a history of spontaneous amputation of multiple digits that presented to outside hospital with wet gangrene of the right hand. 02/09: R. Hand I&D, Amputation of right index finger 02/11: I&D of R. Hand Summary:No acute changes this shift. Pt continue to rate pain 8-9/10. Pt frustrated due to not having IV dilaudid anymore in preparation for discharge. Provider switched Oxycodone PRN to PO Dilaudid PRN. Pt states relief despite still rating 9/10 pain. Switched from IV abx to PO. Per Plastics - no plan to return to OR at this time, drain to be removed tomorrow and possible D/C. K+ replaced this shift per protocol. F- Feeding & Fluids: Tolerating regular diet with thin liquids A- Analgesic & Anticoagulation: Comfort Goal: Numeric, Verbal, Faces: 4 - Moderate Analgesic Scheduled Tylenol and Robaxin, PRN Dilaudid Anticoagulation/DVT prevention & plan SCDs S- Skin: Regulo Subcategory Concern(s): Sensory Perception: Slightly Limited Sensory Interventions:Appropriate support surface and Pain control Moisture: Rarely Moist Activity: Walks Occasionally Activity Interventions: Low air loss mattress Nutrition: Adequate Nutrition Interventions: Calorie intake Mobility: Slightly Limited Mobility Interventions: Low air loss support Friction and Shear: No Apparent Problem Total Regulo Score: 19: wound care BID - completed by plastics this shift. T- Telemetry: Rhythm: Sinus Rhythm Ectopy: None No tele E- Emotional & Neuro: Participating in cares Neuro Alert and Oriented R- Respiratory: On room air H- Head OUT of Bed & Activity: Activate Fall Alert? (Enter 1 or 0): (not recorded) Ambulating independently Early mobility Phases 1-4: Phase 4: Ambulation U- Urologic/bowel: Size: Small (02/13/2025 12:18 AM) Voiding in bathroom. No BM this shift. G- Glycemic Control: Not applicable T- Treatment: pain mgmt, wound care, K/Mg protocol, plastics/ID following, PO abx I- Invasive Devices: PIVx1 D- Discharge: TBD * Loly Castaneda PA-C - 02/13/2025 2:32 PM CDT HOSPITAL ID FOLLOW-UP NOTE Discussed with CONCRETE POINTER: Wet gangrene, and osteomyelitis of Rt index finger, s/p amputation at MCP joint (02/09, 02/11). Intraop cx on 02/09 with MRSA, E.coli and mixed anaerobes. she had the second metacarpal amputated on 02/11, and cx with S.aureus, GNB. Buerger's disease, smoker RECOMMENDATIONS: 1. Change IV Vanco/Zosyn to PO Bactrim for MRSA, strep, E coli and PO Flagyl for anaerobic coverage Plan 4 week course for residual OM (02/11-03/10) 2. Would like f/u Cr and K checked the week of February 24, pt says she can do this with her pcp, instructions left on discharge orders. 3. Ok with discharge from ID standpoint, orders placed. Telemed f/u on 02/28. ID will sign off, please call with concerns or questions. SUBJECTIVE: Hannah Loo is a 45 y.o. female who I am seeing for R hand infection. Discussed ABx plan. MEDICATIONS: Reviewed in the Order Review tab in EMR ANTI-INFECTIVES: CURRENT: Vanco, Zosyn PREVIOUS: ALLERGIES: No Known Allergies EXAMINATION: Vital Signs: BP (!) 135/90 Pulse 96 Temp 98.4 ??F (36.9 ??C) Resp 16 Ht 5' 1 (1.549 m) Wt 53.6 kg (118 lb 2.7 oz) LMP (LMP Unknown) SpO2 96% No BMI 22.33 kg/m?? Temp (24hrs), Av.1 ??F (36.7 ??C), Min:97.9 ??F (36.6 ??C), Max:98.4 ??F (36.9 ??C) Weight: 53.6 kg (118 lb 2.7 oz) GENERAL APPEARANCE: Awake and alert, NAD. Appears older than stated age. HEENT: Eyes - Normal lids and conjunctivae Oropharynx - Oral mucosa and pharynx normal, MMM NECK: Supple RESPIRATORY: Lungs normal effort SKIN: Intact, warm, dry. NEUROLOGIC: Alert and appropriate, moves all extremities EXTREMITIES: R hand wrapped, multiple amputations/gangrene of fingers NEW DATA/RESULTS: Micro: 02/09 OR cx: MRSA, group C strep, E coli, mixed anaerobes 02/11 OR cx: staph aureus, GNB Lab: WBC Date Value Ref Range Status 02/13/2025 12.7 (H) 4.3 - 10.8 K/uL Final Creatinine Date Value Ref Range Status 02/13/2025 0.80 0.55 - 1.02 mg/dL Final Est GFR (CKD-EPI) Date Value Ref Range Status 02/13/2025 >60.00 >60.00 mL/min/1.73m2 Final Comment: Calculation based on the Chronic Kidney Disease Epidemiology Collaboration (CKD- EPI) equation refitwithout adjustment for race. Imaging: reviewed Loly Castaneda PA-C Pager [phone] or yudi * Lanie Sotelo DNP,STOVE INSTALLER - 02/13/2025 9:38 AM CDT PLASTIC SURGERY PROGRESS NOTE POD # 2: Debridement of right hand, partial resection of 2nd metacarpal POD #4: 1. Incision and drainage of extensive collar-button subcutaneous abscess involving radial half of the palm 2. Disarticulation of right index finger through metacarpophalangeal joint SUBJECTIVE Sitting up in bed, complains of pain to right hand but stable. Discussed decreasing dilaudid use asshe will likely be discharging to home soon and can not take dilaudid home with her. She also states that the pain is not worse since surgery and she has been having pain for months. 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 OBJECTIVE Temp (24hrs), Av.2 ??F (36.8 ??C), Min:97.9 ??F (36.6 ??C), Max:98.5 ??F (36.9 ??C) BP (!) 138/101 Pulse 96 Temp 98.4 ??F (36.9 ??C) Resp 16 Ht 5' 1 (1.549 m) Wt 53.6 kg (118 lb 2.7 oz) LMP (LMP Unknown) SpO2 96% No BMI 22.33 kg/m?? No intake or output data in the 24 hours ending 02/13/25 0938 Gen: Sitting up in bed, in NAD Cardiovascular: hemodynamically stable Respiratory: quiet, non-labored breathing. RA GI: tolerating PO Extremities: right hand: incisions intact to dorsal aspect, volar aspect with vessel loop, scant bloody drainage on dressing. No purulent drainage or foul smelling drainage. Skin surrounding incisions with blanchable erythema. Replaced dressing. Neuro: A&O. Speech: clear. Following commands : voiding Psych: appropriate affect Labs: WBC Date Value Ref Range Status 02/13/2025 12.7 (H) 4.3 - 10.8 K/uL Final 02/12/2025 21.6 (H) 4.3 - 10.8 K/uL Final 2025 9.0 4.3 - 10.8 K/uL Final Hemoglobin Date Value Ref Range Status 02/13/2025 8.6 (L) 12.0 - 16.0 gm/dL Final 02/12/2025 8.4 (L) 12.0 - 16.0 gm/dL Final 2025 9.1 (L) 12.0 - 16.0 gm/dL Final , No results found for: INR, Platelet Count Date Value Ref Range Status 02/13/2025 247 150 - 400 K/UL Final 02/12/2025 257 150 - 400 K/UL Final 2025 206 150 - 400 K/UL Final ASSESSMENT: 45 yo female with wet gangrene from Buerger's disease to right hand now s/p I &D x2and disarticulation of right index finger. PLAN: -no further plans to return to OR at this time. -dressing changes BID -plan to remove vessel loop tomorrow and could likely discharge from plastics standpoint. -refrain from using IV dilaudid -appreciate ID recommendations -discussed with bedside RN and updated hospital med team Lanie Sotelo APRN, PRASANNA * Henna Paniagua APRN, ANDROID DEVELOPER - 02/13/2025 8:05 AM CDT Images from the original note were not included. HOSPITALIST DIVISION PROGRESS NOTE INTERVAL EVENTS: Chart reviewed. No acute events overnight. CHIEF COMPLAINT: pain SUBJECTIVE Patient seen and examined this morning, laying in bed watching tv. Patient report pain is ongoing. When asked how pain compares prior to surgery, she reports pain in better but still present. Had long discussion with patient regarding working on controlling pain better, switching to PO dilaudid butthat it is unlikely that we will complete resolve her pain. Patient verbalized understanding. All questions answered to the best of my ability. OBJECTIVE BP (!) 157/96 Pulse 79 Temp 98 ??F (36.7 ??C) Resp 16 Ht 5' 1 (1.549 m) Wt 53.6 kg (118 lb 2.7 oz) LMP (LMP Unknown) SpO2 100% No BMI 22.33 kg/m?? No intake or output data in the 24 hours ending 02/13/25 0805 EXAM: BP (!) 157/96 Pulse 79 Temp 98 ??F (36.7 ??C) Resp 16 Ht 5' 1 (1.549 m) Wt 53.6 kg (118 lb 2.7 oz) LMP (LMP Unknown) SpO2 100% No BMI 22.33 kg/m?? O2 Delivery Source:Room Air Wt Readings from Last 2 Encounters: 02/08/25 53.6 kg (118 lb 2.7 oz) Temp (24hrs), Av.1 ??F (36.7 ??C), Min:97.9 ??F (36.6 ??C), Max:98.5 ??F (36.9 ??C) Body mass index is 22.33 kg/m??. GENERAL: Patient is alert and oriented. No acute distress, resting comfortably. HEENT: Normocephalic, atraumatic. CHEESH-NA (hears better w low pitch) RESPIRATORY: Lungs clear to auscultation bilaterally. Symmetrical chest expansion. No increased work of breathing. No rhonci, crackles, or wheezes. CARDIOVASCULAR: Regular rate and rhythm. Normal S1/S2. No murmur, rub, or gallop. GASTROINTESTINAL: Abdomen soft, non-distended, non-tender to palpation. Bowel sounds present. No masses or hepatosplenomegaly. MUSCULOSKELETAL: s/p R index finger amputation, dressing in place. Additional dry gangrene of additional fingers on L with varying degrees of auto-amputations SKIN: Warm, dry, intact NEUROLOGIC: Cranial nerves II-XII grossly intact EXTREMITIES: No edema, clubbing, or cyanosis. Moves all extremities LABS: Results for orders placed or performed during the hospital encounter of 02/08/25 (from the past 24 hours) CBC (HGB,HCT,WBC,RBC,Platelet) Result Value Ref Range WBC 12.7 (H) 4.3 - 10.8 K/uL RBC 2.42 (L) 4.20 - 5.40 M/uL Hemoglobin 8.6 (L) 12.0 - 16.0 gm/dL Hematocrit 28.0 (L) 36.0 - 48.0 % MCV 116 (H) 80 - 100 fL MCH 36 (H) 27 - 33 pg MCHC 31 (L) 33 - 36 gm/dL RDW 15.0 (H) 11.5 - 14.5 % Platelet Count 247 150 - 400 K/UL MPV 9.6 6.5 - 12 fL Basic Metabolic Profile Magnesium Result Value Ref Range Sodium 139 136 - 145 mmol/L Potassium 3.4 3.4 - 5.1 mmol/L Chloride 107 98 - 108 mmol/L Carbon Dioxide 26 20 - 31 mmol/L BUN (Urea Nitro) 10 9 - 23 mg/dL Creatinine 0.80 0.55 - 1.02 mg/dL Est GFR (CKD-EPI) >60.00 >60.00 mL/min/1.73m2 Glucose 64 (L) 74 - 106 mg/dL Calcium, Serum 8.4 (L) 8.7 - 10.4 mg/dL Anion Gap 6.0 0.0 - 15.0 mmol/L Magnesium 1.7 1.6 - 2.6 mg/dL IMAGING: No results found. EKG: Lab Results Component Value Date EKG 02/08/2025 Comment: [facility] Test Date: 2025-02-08 Pat Name: HANNAH LOO Department: Room: 83 Gender: F 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1980 Requested By: YANY INGRAM MD Order Number: [id number] Reading MD: YANY INGRAM MD Measurements Intervals [place] Rate: 95 P: 74 NM: 140 QRS: 24 QRSD: 95 T: 60 QT: 339 QTc: 391 Interpretive Statements SINUS RHYTHM LOW QRS VOLTAGE IN PRECORDIAL LEADS [QRS DEFLECTION < 1.0 mV IN CHEST LEADS] SEPTAL MYOCARDIAL INFARCTION [40+ ms Q WAVE IN V1/V2], OF INDETERMINATE AGE ABNORMAL ECG No previous ECG available for comparison Additional Comments: I have reviewed the patient's new clinical lab results I have reviewed the patient's medications. I discussed the plan of care with the patient and RN, Plastics. ASSESSMENT: This is a 44 y.o. 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 The case was discussed with orthopedic surgery and vascular surgery at [facility], who recommended transfer to [facility] for hand specialist evaluation. Patient was started on vanc + zosyn prior to transfer. 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 Technically met sepsis criteria on admit w leukocytosis and tachycardia (101), though tachycardia could also be related to pain. HR since normalized. Right second digit with wet gangrene. Left second and fifth digit with necrosis. Transferred from outside hospital for hand/plastics specialist. Started on Vanco/Zosyn on admit. WBC improving to 11- 12. Underwent I&D and removal of R index finger 02/09, Cx with growth of Staph aureus and E coli, on Vanc/Zosyn. 02/11: underwent I&D of right hand and partial resection of 2nd metacarpal, Cultures + for MRSA and GNB. No need for repeat procedures at this time per plastic surgery team -Plastics consult, apprec recs: -TID dressing changes to right hand (orders in place) -return to OR today for repeat I &D and possible ray amputation to right 2nd finger. -continue with vanco+ zosyn -ID consulted *continue IV vanco and zosyn *possible need for IV abx outpatient -Pain control:lakeisha tylenol, switched to PO dilaudid, Iv dilaudid (for when npo or not controlled by oral, move to q4hrs PRN), gabapentin 300 mg TID,robaxin QID and prn vistaril REBECA, stable Baseline Cr 0.3-0.5. Cr today rising to 0.82, meets criteria for REBECA with rise in Cr >0.2. Will give gentle IVF and recheck in AM, no NSAIDs. No improvement with creatinine after IVF. May be related to van/zosyn, if no improvement in Cr tomorrow may need adjustment of abx pending cx results. Creatinine down to 0.80 -Avoid nephrotoxic meds -Daily BMP N/V, resolved PUD Dtr reports that pt has ulcers and was supposed to have EGD at [place] but wasn't able to advance scope (?stricture, unable to see report in careeverywhere). On PPI and pepcid. No evidence of bleeding currently but monitor. Reports some nausea/vomiting overnight (reports that it was due to bad dinner), improving w ant-emetics. -monitor for bloody stools, hematmesis -cont PPI, Pepcid -zofran, compazine Tobacco dependence Pt reports that she is working on quitting. -NRT while here (ok per Plastics) -recommend complete cessation, patient in agreement Anemia, microcytic Hgb 10.1, unknown baseline. Repeat stable at 10->9.8->9.1->8.4 (hemodilution from IVF)->8.6 -continue to monitor Hypokalemia, Resolved K 3.2, replaced w improvemnet, K 3.7 -K/MG protocol ?CAD EKG w poss prev septal MO of indeterminate age. -outpt stress test CODE STATUS: Full Code DVT prophylaxis: ambulatory GI prophylaxis: PPI ACCESS: PIV RESTRAINTS: none DISPOSITION: Anticipated date of discharge 2+ days, Criteria for discharge is abx plan per ID, painmanagement improved Family Communication: daughterDaniela via phone Case discussed with Dr. Pickering Wound: Skin Condition/Wound Non-Pressure Leathery;Flaky Right;Lower Foot (Active) First Observed/Origin Date/First Observed/Origin Time: 02/08/25 0118 Primary Wound Type: Skin Condition/Wound Non-Pressure Present on Original Admission: Yes Skin Condition Type: Leathery;Flaky Orientation: Right;Lower Location: Foot Wound: Skin Condition/Wound Non-Pressure Flaky;Leathery Lower;Left Foot (Active) First Observed/Origin Date/First Observed/Origin Time: 02/08/25 0000 Primary Wound Type: Skin Condition/Wound Non-Pressure Present on Original Admission: Yes Skin Condition Type: Flaky;Leathery Orientation: Lower;Left Location: Foot Wound: Skin Condition/Wound Non-Pressure Reddened (Non-Pressure Related) Left Hand (Active) First Observed/Origin Date/First Observed/Origin Time: 02/08/25 0000 Primary Wound Type: Skin Condition/Wound Non-Pressure Present on Original Admission: Yes Skin Condition Type: Reddened (Non-Pressure Related) Orientation: Left Location: Hand Wound: Skin Condition/Wound Non-Pressure Reddened (Non-Pressure Related) Right Hand (Active) First Observed/Origin Date/First Observed/Origin Time: 02/08/25 0000 Primary Wound Type: Skin Condition/Wound Non-Pressure Present on Original Admission: Yes Skin Condition Type: Reddened (Non-Pressure Related) Orientation: Right Location: Hand Wound: Skin Condition/Wound Non-Pressure Reddened (Non-Pressure Related) Right Hand (Active) First Observed/Origin Date/First Observed/Origin Time: 02/08/25 0000 Primary Wound Type: Skin Condition/Wound Non-Pressure Present on Original Admission: Yes Skin Condition Type: Reddened (Non-Pressure Related) Orientation: Right Location: Hand Wound: Surgical/Procedure Site Incision Right Finger (Active) First Observed/Origin Date/First Observed/Origin Time: 02/09/25 1047 Primary Wound Type: Surgical/Procedure Site Incision Type: Incision Orientation: Right Location: Finger Description: Right hand index finger Total time spent today for visit was 50 minutes and included: Direct [id number] time, Review of records, Coordination of care, and Documentation of visit, adjusted pain regimen, spoke with family via phone. Henna Paniagua DNP, STOVE INSTALLER, ANDROID DEVELOPER, [facility] Medicine * Paula Vegas RN - 02/13/2025 7:02 AM CDT Med-Surg Care Progression Note Type: Shift to shift summary Length of stay: 5 days Code Status: Full Code Primary Problem: Osteomyelitis (Hands pain,Gangrene) 02/09 I&D and R index finger amputation through metacarpophalangeal joint 02/11 Debridement of right hand, partial resection of 2nd metacarpal Right hand splint and NARCISA CDI. 02/09 Cx- MRSA continue IV ABX F- Feeding & Fluids: Regular diet with thin liquids A- Analgesic & Anticoagulation: Comfort Goal: Numeric, Verbal, Faces: 4 - Moderate Analgesic PRN, Oxycodone, Dilaudid, Vistaril and Robaxin, Scheduled, Neurontin, Tylenol. Anticoagulation/DVT prevention & plan SCDs S- Skin: Regulo Subcategory Concern(s): Sensory Perception: No Impairment Moisture: Rarely Moist Activity: Walks Occasionally Activity Interventions: Safer bundle Nutrition: Adequate Nutrition Interventions:None Mobility: No Limitations steady gaits Friction and Shear: Potential Problem Total Regulo Score: 21: Ambulate independently/SBA see pictures for skin impairment T- Telemetry: Rhythm: Sinus Rhythm Ectopy: None No tele E- Emotional & Neuro: Participating in cares Neuro Alert and Oriented R- Respiratory: On room air H- Head OUT of Bed & Activity: Activate Fall Alert? (Enter 1 or 0): (not recorded) Ambulating independently/ SBA to the bathroom Progressive mobility Phases 5-7: Phase 7: 250 feet or more U- Urologic/bowel: No data recorded Voiding via bathroom BM x2 this shift G- Glycemic Control: Not applicable T- Treatment: IV abx, Pain mgt, Labs, Post op cares, ID and plastic surgery following I- Invasive Devices: PIV x1 D- Discharge: TBD * Nellie Garcia RN - 02/12/2025 4:20 PM CDT Med-Surg Care Progression Note Type: Shift to shift summary [id number] Length of stay: 4 days Code Status: Full Code Primary Problem: Osteomyelitis (Hands pain,Gangrene) 02/09 I&D and R index finger amputation through metacarpophalangeal joint 02/11 Debridement of right hand, partial resection of 2nd metacarpal Right hand splint and NARCISA CDI. C/O increased pain without getting enough pain medication this shift and always at 10/10.All current post op regimen utilized dressing change completed 02/09 Cx- MRSA continue IVABX F- Feeding & Fluids: Regular diet with thin liquids A- Analgesic & Anticoagulation: Comfort Goal: Numeric, Verbal, Faces: 4 - Moderate Analgesic PRN Oxycodone Dilaudid Robaxin, Scheduled Neurontin Tylenol. Anticoagulation/DVT prevention & plan SCDs S- Skin: Regulo Subcategory Concern(s): Sensory Perception: Slightly Limited Moisture: Occasionally Moist Activity: Walks Occasionally Activity Interventions: Safer bundle Nutrition: Adequate Nutrition Interventions:None Mobility: Slightly Limited steady gaits Friction and Shear: Potential Problem Total Regulo Score: 17: Ambulate independently/SBA see pictures for skin impairment T- Telemetry: Rhythm: Sinus Rhythm Ectopy: None No tele E- Emotional & Neuro: Participating in cares Neuro Alert and Oriented R- Respiratory: On room air H- Head OUT of Bed & Activity: Activate Fall Alert? (Enter 1 or 0): (not recorded) Ambulating independently/ SBA to the bathroom Progressive mobility Phases 5-7: Phase 7: 250 feet or more U- Urologic/bowel: No data recorded Voiding via bathroom No BM this shift G- Glycemic Control: Not applicable T- Treatment: Pain mgt, Labs, Post op cares I- Invasive Devices: PIV x1 D- Discharge: TBD Blood pressure 107/76, pulse 80, temperature 97.9 ??F (36.6 ??C), resp. rate 16, height 5' 1 (1.549 m), weight 53.6 kg (118 lb 2.7 oz), SpO2 97%, not currently . 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, Methicillin-Resistant Staphylococcus A Goal: Absence of active infection signs and symptoms Outcome: Ongoing Goal: Verbalizes an understanding of contact precautions Outcome: Ongoing Tobacco Use or Exposure Goal: Adheres to tobacco-free environment Outcome: Ongoing 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, Surgical Site Infection Goal: Verbalizes an understanding of infection risks and prevention measures Outcome: Ongoing Problem: Pain Goal: Exhibits reduction in pain to a level of acceptable comfort Outcome: Ongoing * Henna Pnaiagua APRN, ANDROID DEVELOPER - 02/12/2025 8:30 AM CDT Images from the original note were not included. HOSPITALIST DIVISION PROGRESS NOTE INTERVAL EVENTS: Chart reviewed. No acute events overnight. CHIEF COMPLAINT: pain SUBJECTIVE Patient seen and examined this morning, sitting at edge of bed watching TV. Patient reports feelingok today, still having pain but reports pain is manageable with medications. Discussed possible need to go back to OR, waiting for rec from plastic surgery team. All questions answered to the best ofmy ability. OBJECTIVE BP 123/79 Pulse 86 Temp 98.8 ??F (37.1 ??C) Resp 16 Ht 5' 1 (1.549 m) Wt 53.6 kg (118 lb2.7 oz) LMP (LMP Unknown) SpO2 94% No BMI 22.33 kg/m?? Intake/Output Summary (Last 24 hours) at 02/12/2025 0830 Last data filed at 02/12/2025 0642 Gross per 24 hour Intake 3703.6 ml Output 1 ml Net 3702.6 ml EXAM: BP 123/79 Pulse 86 Temp 98.8 ??F (37.1 ??C) Resp 16 Ht 5' 1 (1.549 m) Wt 53.6 kg (118 lb2.7 oz) LMP (LMP Unknown) SpO2 94% No BMI 22.33 kg/m?? O2 Delivery Source: Room Air Wt Readings from Last 2 Encounters: 02/08/25 53.6 kg (118 lb 2.7 oz) Temp (24hrs), Av.2 ??F (36.8 ??C), Min:97 ??F (36.1 ??C), Max:99.3 ??F (37.4 ??C) Body mass index is 22.33 kg/m??. GENERAL: Patient is alert and oriented. No acute distress, resting comfortably. HEENT: Normocephalic, atraumatic. CHEESH-NA (hears better w low pitch) RESPIRATORY: Lungs clear to auscultation bilaterally. Symmetrical chest expansion. No increased work of breathing. No rhonci, crackles, or wheezes. CARDIOVASCULAR: Regular rate and rhythm. Normal S1/S2. No murmur, rub, or gallop. GASTROINTESTINAL: Abdomen soft, non-distended, non-tender to palpation. Bowel sounds present. No masses or hepatosplenomegaly. MUSCULOSKELETAL: s/p R index finger amputation, dressing in place. Additional dry gangrene of additional fingers on L with varying degrees of auto-amputations SKIN: Warm, dry, intact NEUROLOGIC: Cranial nerves II-XII grossly intact EXTREMITIES: No edema, clubbing, or cyanosis. Moves all extremities LABS: Results for orders placed or performed during the hospital encounter of 02/08/25 (from the past 24 hours) Basic Metabolic Profile Magnesium Result Value Ref Range Sodium 141 136 - 145 mmol/L Potassium 4.0 3.4 - 5.1 mmol/L Chloride 108 98 - 108 mmol/L Carbon Dioxide 29 20 - 31 mmol/L BUN (Urea Nitro) 12 9 - 23 mg/dL Creatinine 0.84 0.55 - 1.02 mg/dL Est GFR (CKD-EPI) >60.00 >60.00 mL/min/1.73m2 Glucose 66 (L) 74 - 106 mg/dL Calcium, Serum 8.3 (L) 8.7 - 10.4 mg/dL Anion Gap 4.0 0.0 - 15.0 mmol/L Magnesium 1.8 1.6 - 2.6 mg/dL Culture-Aerobic Specimen: Index finger right; Site-Microbiology Result Value Ref Range Gram Stain Result No bacteria seen. Gram Stain Result No WBC's seen / LPF CBC (HGB,HCT,WBC,RBC,Platelet) Result Value Ref Range WBC 21.6 (H) 4.3 - 10.8 K/uL RBC 2.34 (L) 4.20 - 5.40 M/uL Hemoglobin 8.4 (L) 12.0 - 16.0 gm/dL Hematocrit 27.2 (L) 36.0 - 48.0 % MCV 116 (H) 80 - 100 fL MCH 36 (H) 27 - 33 pg MCHC 31 (L) 33 - 36 gm/dL RDW 15.1 (H) 11.5 - 14.5 % Platelet Count 257 150 - 400 K/UL MPV 10.0 6.5 - 12 fL Basic Metabolic Profile Magnesium Result Value Ref Range Sodium 143 136 - 145 mmol/L Potassium 4.1 3.4 - 5.1 mmol/L Chloride 109 (H) 98 - 108 mmol/L Carbon Dioxide 26 20 - 31 mmol/L BUN (Urea Nitro) 10 9 - 23 mg/dL Creatinine 0.78 0.55 - 1.02 mg/dL Est GFR (CKD-EPI) >60.00 >60.00 mL/min/1.73m2 Glucose 69 (L) 74 - 106 mg/dL Calcium, Serum 8.0 (L) 8.7 - 10.4 mg/dL Anion Gap 8.0 0.0 - 15.0 mmol/L Magnesium 1.7 1.6 - 2.6 mg/dL IMAGING: No results found. EKG: Lab Results Component Value Date EKG 02/08/2025 Comment: [facility] Test Date: 2025-02-08 Pat Name: HANNAH LOO Department: A7 Room: A783 Gender: F 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1980 Requested By: YANY INGRAM MD Order Number: [id number] Reading MD: YANY INGRAM MD Measurements Intervals [place] Rate: 95 P: 74 NM: 140 QRS: 24 QRSD: 95 T: 60 QT: 339 QTc: 391 Interpretive Statements SINUS RHYTHM LOW QRS VOLTAGE IN PRECORDIAL LEADS [QRS DEFLECTION < 1.0 mV IN CHEST LEADS] SEPTAL MYOCARDIAL INFARCTION [40+ ms Q WAVE IN V1/V2], OF INDETERMINATE AGE ABNORMAL ECG No previous ECG available for comparison Additional Comments: I have reviewed the patient's new clinical lab results I have reviewed the patient's medications. I discussed the plan of care with the patient and RN, Plastics. ASSESSMENT: This is a 44 y.o. 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 The case was discussed with orthopedic surgery and vascular surgery at [facility], who recommended transfer to [facility] for hand specialist evaluation. Patient was started on vanc + zosyn prior to transfer. 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 Technically met sepsis criteria on admit w leukocytosis and tachycardia (101), though tachycardia could also be related to pain. HR since normalized. Right second digit with wet gangrene. Left second and fifth digit with necrosis. Transferred from outside hospital for hand/plastics specialist. Started on Vanco/Zosyn on admit. WBC improving to 11- 12. Underwent I&D and removal of R index finger 02/09, Cx with growth of Staph aureus and E coli, on Vanc/Zosyn. 02/11: underwent I&D of right hand and partial resection of 2nd metacarpal, Cultures + for MRSA and GNB. No need for repeat procedures at this time per plastic surgery team -Plastics consult, apprec recs: -TID dressing changes to right hand (orders in place) -return to OR today for repeat I &D and possible ray amputation to right 2nd finger. -continue with vanco+ zosyn -Pain control-lakeisha tylenol, oxycodone 5-10 q4h prn, Iv dilaudid (for when npo or not controlled by oral), gabapentin 200mg TID, prn vistaril, prn robaxin REBECA, improving Baseline Cr 0.3-0.5. Cr today rising to 0.82, meets criteria for REBECA with rise in Cr >0.2. Will give gentle IVF and recheck in AM, no NSAIDs. No improvement with creatinine after IVF. May be related to van/zosyn, if no improvement in Cr tomorrow may need adjustment of abx pending cx results. Creatinine down to 0.78 -Avoid nephrotoxic meds -Daily BMP N/V, resolved PUD Dtr reports that pt has ulcers and was supposed to have EGD at [place] but wasn't able to advance scope (?stricture, unable to see report in careeverywhere). On PPI and pepcid. No evidence of bleeding currently but monitor. Reports some nausea/vomiting overnight (reports that it was due to bad dinner), improving w ant-emetics. -monitor for bloody stools, hematmesis -cont PPI, Pepcid -zofran, compazine Tobacco dependence Pt reports that she is working on quitting. -NRT while here (ok per Plastics) -recommend complete cessation Anemia, microcytic Hgb 10.1, unknown baseline. Repeat stable at 10->9.8->9.1->8.4 (hemodilution from IVF). -continue to monitor Hypokalemia, Resolved K 3.2, replaced w improvemnet, K 3.7 -K/MG protocol ?CAD EKG w poss prev septal MO of indeterminate age. -outpt stress test CODE STATUS: Full Code DVT prophylaxis: none w plan for procedure today, ambulatory GI prophylaxis: PPI ACCESS: PIV RESTRAINTS: none DISPOSITION: Anticipated date of discharge 3+ days, Criteria for discharge is additional plastics procedure, wound cx results, transitioned to PO abx, cleared by Plastics, improvement in Cr, stability for dc. Family Communication: daughterDaniela via phone Case discussed with Dr. Pickering Wound: Skin Condition/Wound Non-Pressure Leathery;Flaky Right;Lower Foot (Active) First Observed/Origin Date/First Observed/Origin Time: 02/08/25 0118 Primary Wound Type: Skin Condition/Wound Non-Pressure Present on Original Admission: Yes Skin Condition Type: Leathery;Flaky Orientation: Right;Lower Location: Foot Wound: Skin Condition/Wound Non-Pressure Flaky;Leathery Lower;Left Foot (Active) First Observed/Origin Date/First Observed/Origin Time: 02/08/25 0000 Primary Wound Type: Skin Condition/Wound Non-Pressure Present on Original Admission: Yes Skin Condition Type: Flaky;Leathery Orientation: Lower;Left Location: Foot Wound: Skin Condition/Wound Non-Pressure Reddened (Non-Pressure Related) Left Hand (Active) First Observed/Origin Date/First Observed/Origin Time: 02/08/25 0000 Primary Wound Type: Skin Condition/Wound Non-Pressure Present on Original Admission: Yes Skin Condition Type: Reddened (Non-Pressure Related) Orientation: Left Location: Hand Wound: Skin Condition/Wound Non-Pressure Reddened (Non-Pressure Related) Right Hand (Active) First Observed/Origin Date/First Observed/Origin Time: 02/08/25 0000 Primary Wound Type: Skin Condition/Wound Non-Pressure Present on Original Admission: Yes Skin Condition Type: Reddened (Non-Pressure Related) Orientation: Right Location: Hand Wound: Skin Condition/Wound Non-Pressure Reddened (Non-Pressure Related) Right Hand (Active) First Observed/Origin Date/First Observed/Origin Time: 02/08/25 0000 Primary Wound Type: Skin Condition/Wound Non-Pressure Present on Original Admission: Yes Skin Condition Type: Reddened (Non-Pressure Related) Orientation: Right Location: Hand Wound: Surgical/Procedure Site Incision Right Finger (Active) First Observed/Origin Date/First Observed/Origin Time: 02/09/25 1047 Primary Wound Type: Surgical/Procedure Site Incision Type: Incision Orientation: Right Location: Finger Description: Right hand index finger Total time spent today for visit was 35 minutes and included: Direct ofyx-mw-[id number] time, Review of records, Coordination of care, and Documentation of visit, discussed with Plastic surgery GREGG and spoke with family via phone. Henna Paniagua DNP, STOVE INSTALLER, ANDROID DEVELOPER, [facility] Medicine * Lanie Sotelo DNP,EDI - 02/12/2025 7:12 AM CDT PLASTIC SURGERY PROGRESS NOTE POD # 1: Debridement of right hand, partial resection of 2nd metacarpal POD #3: 1. Incision and drainage of extensive collar-button subcutaneous abscess involving radial half of the palm 2. Disarticulation of right index finger through metacarpophalangeal joint SUBJECTIVE Sitting up in bed, complains of pain to right hand but no worse since surgery. She states she has been in pain ever since her Buerger's disease diagnosis. She is tolerating PO and voiding. She is ambulating. OBJECTIVE Temp (24hrs), Av.2 ??F (36.8 ??C), Min:97 ??F (36.1 ??C), Max:99.3 ??F (37.4 ??C) BP 116/83 Pulse 79 Temp 98.5 ??F (36.9 ??C) Resp 18 Ht 5' 1 (1.549 m) Wt 53.6 kg (118 lb2.7 oz) LMP (LMP Unknown) SpO2 97% No BMI 22.33 kg/m?? Intake/Output Summary (Last 24 hours) at 02/12/2025 1231 Last data filed at 02/12/2025 0642 Gross per 24 hour Intake 3203.6 ml Output 1 ml Net 3202.6 ml Gen: Sitting up in bed, in NAD Cardiovascular: hemodynamically stable Respiratory: quiet, non-labored breathing. RA GI: tolerating PO Extremities: right hand: incisions intact to dorsal aspect, volar aspect with vessel loop, scant bloody drainage on dressing. No purulent drainage. Skin surrounding incisions with blanchable erythema. Replaced dressing. Neuro: A&O. Speech: clear. Following commands : voiding Psych: appropriate affect Labs: WBC Date Value Ref Range Status 02/12/2025 21.6 (H) 4.3 - 10.8 K/uL Final 2025 9.0 4.3 - 10.8 K/uL Final 02/10/2025 12.3 (H) 4.3 - 10.8 K/uL Final Hemoglobin Date Value Ref Range Status 02/12/2025 8.4 (L) 12.0 - 16.0 gm/dL Final 2025 9.1 (L) 12.0 - 16.0 gm/dL Final 02/10/2025 9.8 (L) 12.0 - 16.0 gm/dL Final , No results found for: INR, Platelet Count Date Value Ref Range Status 02/12/2025 257 150 - 400 K/UL Final 2025 206 150 - 400 K/UL Final 02/10/2025 355 150 - 400 K/UL Final ASSESSMENT: 45 yo female with wet gangrene from Buerger's disease to right hand now s/p I &D x2and disarticulation of right index finger. PLAN: -no further plans to return to OR at this time. -dressing changes BID -begin to decrease IV dilaudid use -consult ID for ABX recommendations -discussed with bedside RN, ID and hospital med FOOD SERVICES DIRECTOR Lanie Sotelo STOVE INSTALLER, PRASANNA * Louann Hadley RN - 02/12/2025 6:36 AM CDT Med-Surg Care Progression Note Type: Shift to shift summary 7p- Length of stay: 4 days Code Status: Full Code Primary Problem: Osteomyelitis (Hands pain,Gangrene) 02/09 I&D and R index finger amputation through metacarpophalangeal joint 02/11 Debridement of right hand, partial resection of 2nd metacarpal Right hand splint and NARCISA CDI. Pain minimally managed with the current post op regimen. Usually reports 10+/10 IVABX and fluid infusing F- Feeding & Fluids: Regular diet with thin liquids A- Analgesic & Anticoagulation: Comfort Goal: Numeric, Verbal, Faces: 4 - Moderate Analgesic PRN Oxycodone Dilaudid Robaxin, Scheduled Neurontin Tylenol. Anticoagulation/DVT prevention & plan SCDs S- Skin: Regulo Subcategory Concern(s): Sensory Perception: Slightly Limited Moisture: Occasionally Moist Activity: Walks Occasionally Activity Interventions: Safer bundle Nutrition: Adequate Nutrition Interventions:None Mobility: Slightly Limited steady gaits Friction and Shear: Potential Problem Total Regulo Score: 17: Ambulate independently/SBA T- Telemetry: Rhythm: Sinus Rhythm Ectopy: None No tele E- Emotional & Neuro: Participating in cares Neuro Alert and Oriented R- Respiratory: On room air H- Head OUT of Bed & Activity: Activate Fall Alert? (Enter 1 or 0): (not recorded) Ambulating independently/ SBA to the bathroom Progressive mobility Phases 5-7: Phase 7: 250 feet or more U- Urologic/bowel: No data recorded Voiding via bathroom . BM 02/11 G- Glycemic Control: Not applicable T- Treatment: Pain mgt, Labs, Post op cares I- Invasive Devices: PIV x1 D- Discharge: TBD * Nellie Jackson RN - 02/12/2025 5:23 AM CDT In patient chart, assisting primary RN with PRN medication administration. * Nellie Garcia RN - 2025 6:35 PM CDT Med-Surg Care Progression Note Type: Shift to shift summary [id number] Length of stay: 3 days Code Status: Full Code Primary Problem: Osteomyelitis (Hands pain,Gangrene) 02/09 I&D and R index finger amputation through metacarpophalangeal joint 02/11 Debridement of right hand, partial resection of 2nd metacarpal Right hand splint and NARCISA CDI. Pain minimally managed with the current post op regimen IVABX and fluid infusing F- Feeding & Fluids: Regular diet with thin liquids A- Analgesic & Anticoagulation: Comfort Goal: Numeric, Verbal, Faces: 6 - Severe Analgesic PRN Oxycodone Dilaudid Robaxin, Scheduled Neurontin Tylenol. Anticoagulation/DVT prevention & plan SCDs S- Skin: Regulo Subcategory Concern(s): Sensory Perception: Slightly Limited Moisture: Occasionally Moist Activity: Walks Occasionally Activity Interventions: Safer bundle Nutrition: Adequate Nutrition Interventions:None Mobility: Slightly Limited steady gaits Friction and Shear: Potential Problem Total Regulo Score: 17: Ambulate independently/SBA see pictures for skin impairment T- Telemetry: Rhythm: Sinus Rhythm Ectopy: None No tele E- Emotional & Neuro: Participating in cares Neuro Alert and Oriented R- Respiratory: On room air H- Head OUT of Bed & Activity: Activate Fall Alert? (Enter 1 or 0): (not recorded) Ambulating independently/ SBA to the bathroom Progressive mobility Phases 5-7: Phase 7: 250 feet or more U- Urologic/bowel: No data recorded Voiding via bathroom x1 medium BM this shift G- Glycemic Control: Not applicable T- Treatment: Pain mgt, Labs, Post op cares I- Invasive Devices: PIV x1 D- Discharge: TBD Blood pressure 120/86, pulse (!) 101, temperature 97.9 ??F (36.6 ??C), resp. rate 16, height 5' 1 (1.549 m), weight 53.6 kg (118 lb 2.7 oz), SpO2 96%, not currently . Problem: Tobacco Use or Exposure Goal: Adheres to tobacco-free environment Outcome: Ongoing Problem: Falls/Injury-Risk of Goal: Absence of Falls/Injury Outcome: Ongoing Flowsheets (Taken 02/10/2025 0751) Environmental Safety Interventions: Standard Interventions in Place Fall Risk Light on Outside Patient Room Fall Risk computer education professor Door (NMR) Mobility Safety Interventions: Standard Interventions in Place Stay Within Arms Reach Use Assistive Device When Patient Is Up Transfer/Gait Belt In Use When Patient Is Up 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, Surgical Site Infection Goal: Verbalizes an understanding of infection risks and prevention measures Outcome: Ongoing Problem: Pain Goal: Exhibits reduction in pain to a level of acceptable comfort Outcome: Ongoing * Katheryn Yoon RN - 2025 2:32 PM CDT PACU POSTOP END OF SHIFT SBAR S: Situation/ B: Background Patient s/p I & D right hand with partial amputation of 2nd finger under general anesthesia. To PACU at 1330 on cart with O2 from OR. Placed on full monitors. PMH: [place], smoker, gangrene A: Assessment Incision: Right Hand Dressing: Gauze/Narcisa with loop drain - clean, dry, intact Pain: See MAR for PRNs - now tolerable pain level Nausea: Denies BP 123/82 Pulse 100 Temp 97.6 ??F (36.4 ??C) Resp 11 Ht 5' 1 (1.549 m) Wt 53.6 kg (118 lb 2.7 oz) LMP (LMP Unknown) SpO2 94% No BMI 22.33 kg/m?? Saturation level 92% on 3L NC R: Recommendation Patient to A7 - 783 SBAR report given to RN receiving care * Henna Paniagua APRN, ANDROID DEVELOPER - 2025 8:54 AM CDT Images from the original note were not included. HOSPITALIST DIVISION PROGRESS NOTE INTERVAL EVENTS: Chart reviewed. No acute events overnight. CHIEF COMPLAINT: pain SUBJECTIVE Patient seen and examined this morning, laying in bed. Patient reports pain is roughly 8/10, which is better than it has been prior to hospitalization. Patient reports she is going back to the OR today and it sad that she had to do this on her birthday. Hoping to be her last trip to the OR. All questions answered to the best of my ability. OBJECTIVE BP (!) 149/106 Pulse (!) 102 Temp 98 ??F (36.7 ??C) Resp 16 Ht 5' 1 (1.549 m) Wt 53.6 kg(118 lb 2.7 oz) LMP (LMP Unknown) SpO2 95% No BMI 22.33 kg/m?? No intake or output data in the 24 hours ending 02/11/25 0854 EXAM: BP (!) 149/106 Pulse (!) 102 Temp 98 ??F (36.7 ??C) Resp 16 Ht 5' 1 (1.549 m) Wt 53.6 kg(118 lb 2.7 oz) LMP (LMP Unknown) SpO2 95% No BMI 22.33 kg/m?? O2 Delivery Source: Room Air Wt Readings from Last 2 Encounters: 02/08/25 53.6 kg (118 lb 2.7 oz) Temp (24hrs), Av.3 ??F (36.8 ??C), Min:97.6 ??F (36.4 ??C), Max:98.9 ??F (37.2 ??C) Body mass index is 22.33 kg/m??. GENERAL: Patient is alert and oriented. No acute distress, resting comfortably. HEENT: Normocephalic, atraumatic. CHEESH-NA (hears better w low pitch) RESPIRATORY: Lungs clear to auscultation bilaterally. Symmetrical chest expansion. No increased work of breathing. No rhonci, crackles, or wheezes. CARDIOVASCULAR: Regular rate and rhythm. Normal S1/S2. No murmur, rub, or gallop. GASTROINTESTINAL: Abdomen soft, non-distended, non-tender to palpation. Bowel sounds present. No masses or hepatosplenomegaly. MUSCULOSKELETAL: s/p R index finger amputation, dressing in place. Additional dry gangrene of additional fingers on L with varying degrees of auto-amputations SKIN: Warm, dry, intact NEUROLOGIC: Cranial nerves II-XII grossly intact EXTREMITIES: No edema, clubbing, or cyanosis. Moves all extremities LABS: Results for orders placed or performed during the hospital encounter of 02/08/25 (from the past 24 hours) CBC (HGB,HCT,WBC,RBC,Platelet) Result Value Ref Range WBC 9.0 4.3 - 10.8 K/uL RBC 2.56 (L) 4.20 - 5.40 M/uL Hemoglobin 9.1 (L) 12.0 - 16.0 gm/dL Hematocrit 29.4 (L) 36.0 - 48.0 % MCV 115 (H) 80 - 100 fL MCH 36 (H) 27 - 33 pg MCHC 31 (L) 33 - 36 gm/dL RDW 15.3 (H) 11.5 - 14.5 % Platelet Count 206 150 - 400 K/UL MPV 9.3 6.5 - 12 fL Procalcitonin Result Value Ref Range Procalcitonin 4.22 (H) <=0.05 ng/mL IMAGING: No results found. EKG: Lab Results Component Value Date EKG 02/08/2025 Comment: [facility] Test Date: 2025-02-08 Pat Name: HANNAH LOO Department: A7 Room: A783 Gender: F 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1980 Requested By: YANY INGRAM MD Order Number: [id number] Reading MD: YANY INGRAM MD Measurements Intervals [place] Rate: 95 P: 74 NM: 140 QRS: 24 QRSD: 95 T: 60 QT: 339 QTc: 391 Interpretive Statements SINUS RHYTHM LOW QRS VOLTAGE IN PRECORDIAL LEADS [QRS DEFLECTION < 1.0 mV IN CHEST LEADS] SEPTAL MYOCARDIAL INFARCTION [40+ ms Q WAVE IN V1/V2], OF INDETERMINATE AGE ABNORMAL ECG No previous ECG available for comparison Additional Comments: I have reviewed the patient's new clinical lab results I have reviewed the patient's medications. I discussed the plan of care with the patient and RN, Plastics. ASSESSMENT: This is a 44 y.o. 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 The case was discussed with orthopedic surgery and vascular surgery at [facility], who recommended transfer to [facility] for hand specialist evaluation. Patient was started on vanc + zosyn prior to transfer. 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 Technically met sepsis criteria on admit w leukocytosis and tachycardia (101), though tachycardia could also be related to pain. HR since normalized. Right second digit with wet gangrene. Left second and fifth digit with necrosis. Transferred from outside hospital for hand/plastics specialist. Started on Vanco/Zosyn on admit. WBC improving to 11- 12. Underwent I&D and removal of R index finger 02/09, Cx with growth of Staph aureus and GNB, on Vanc/Zosyn. Path pend. Plan for additional procedure today. Some issues w pain control, regimen as below. -Plastics consult, apprec recs: -TID dressing changes to right hand (orders in place) -return to OR today for repeat I &D and possible ray amputation to right 2nd finger. -continue with vanco+ zosyn -Pain control-lakeisha tylenol, oxycodone 5-10 q4h prn, Iv dilaudid (for when npo or not controlled by oral), gabapentin 200mg TID, prn vistaril, prn robaxin REBECA Baseline Cr 0.3-0.5. Cr today rising to 0.82, meets criteria for REBECA with rise in Cr >0.2. Will give gentle IVF and recheck in AM, no NSAIDs. No improvement with creatinine after IVF. May be related to van/zosyn, if no improvement in Cr tomorrow may need adjustment of abx pending cx results. -Avoid nephrotoxic meds -Daily BMP N/V, resolved PUD Dtr reports that pt has ulcers and was supposed to have EGD at [place] but wasn't able to advance scope (?stricture, unable to see report in careeverywhere). On PPI and pepcid. No evidence of bleeding currently but monitor. Reports some nausea/vomiting overnight (reports that it was due to bad dinner), improving w ant-emetics. -monitor for bloody stools, hematmesis -cont PPI, Pepcid -zofran, compazine Tobacco dependence Pt reports that she is working on quitting. -NRT while here (ok per Plastics) -recommend complete cessation Anemia, microcytic Hgb 10.1, unknown baseline. Repeat stable at 10->9.8->9.1 (hemodilution from IVF). -continue to monitor Hypokalemia, Resolved K 3.2, replaced w improvemnet, K 3.7 -K/MG protocol ?CAD EKG w poss prev septal MO of indeterminate age. -outpt stress test CODE STATUS: Full Code DVT prophylaxis: none w plan for procedure today, ambulatory GI prophylaxis: PPI ACCESS: PIV RESTRAINTS: none DISPOSITION: Anticipated date of discharge 3+ days, Criteria for discharge is additional plastics procedure, wound cx results, transitioned to PO abx, cleared by Plastics, improvement in Cr, stability for dc. Family Communication: none by me today Case discussed with Dr. Pickering Wound: Skin Condition/Wound Non-Pressure Leathery;Flaky Right;Lower Foot (Active) First Observed/Origin Date/First Observed/Origin Time: 02/08/25 0118 Primary Wound Type: Skin Condition/Wound Non-Pressure Present on Original Admission: Yes Skin Condition Type: Leathery;Flaky Orientation: Right;Lower Location: Foot Wound: Skin Condition/Wound Non-Pressure Flaky;Leathery Lower;Left Foot (Active) First Observed/Origin Date/First Observed/Origin Time: 02/08/25 0000 Primary Wound Type: Skin Condition/Wound Non-Pressure Present on Original Admission: Yes Skin Condition Type: Flaky;Leathery Orientation: Lower;Left Location: Foot Wound: Skin Condition/Wound Non-Pressure Reddened (Non-Pressure Related) Left Hand (Active) First Observed/Origin Date/First Observed/Origin Time: 02/08/25 0000 Primary Wound Type: Skin Condition/Wound Non-Pressure Present on Original Admission: Yes Skin Condition Type: Reddened (Non-Pressure Related) Orientation: Left Location: Hand Wound: Skin Condition/Wound Non-Pressure Reddened (Non-Pressure Related) Right Hand (Active) First Observed/Origin Date/First Observed/Origin Time: 02/08/25 0000 Primary Wound Type: Skin Condition/Wound Non-Pressure Present on Original Admission: Yes Skin Condition Type: Reddened (Non-Pressure Related) Orientation: Right Location: Hand Wound: Skin Condition/Wound Non-Pressure Reddened (Non-Pressure Related) Right Hand (Active) First Observed/Origin Date/First Observed/Origin Time: 02/08/25 0000 Primary Wound Type: Skin Condition/Wound Non-Pressure Present on Original Admission: Yes Skin Condition Type: Reddened (Non-Pressure Related) Orientation: Right Location: Hand Wound: Surgical/Procedure Site Incision Right Finger (Active) First Observed/Origin Date/First Observed/Origin Time: 02/09/25 1047 Primary Wound Type: Surgical/Procedure Site Incision Type: Incision Orientation: Right Location: Finger Description: Right hand index finger Total time spent today for visit was 35 minutes and included: Direct [id number] time, Review of records, Coordination of care, and Documentation of visit. Henna Paniagua DNP, STOVE INSTALLER, ANDROID DEVELOPER, [facility] Medicine * Louann Hadley RN - 2025 2:59 AM CDT Med-Surg Care Progression Note Type: Shift to shift summary 7p-7a Length of stay: 3 days Code Status: Full Code Primary Problem: Osteomyelitis (Hands pain, Gangrene) 02/09 I&D and R index finger amputation Pain never below 8 on scale. Oxy/vist/Terence given and using dilaudid for breakthrough. NPO for OR F- Feeding & Fluids: NPO A- Analgesic & Anticoagulation: Comfort Goal: Numeric, Verbal, Faces: 4 - Moderate Analgesic PRN Oxycodone Dilaudid Robaxin, Scheduled Neurontin Tylenol. Anticoagulation/DVT prevention & plan SCDs S- Skin: Regulo Subcategory Concern(s): Sensory Perception: Slightly Limited Moisture: Occasionally Moist Activity: Walks Occasionally Activity Interventions: Safer bundle Nutrition: Adequate Nutrition Interventions: Calorie intake but now NPO Mobility: Slightly Limited Friction and Shear: Potential Problem Total Regulo Score: 17: Ambulate independently. R hand drsg CDI. Did not change overnight T- Telemetry: Rhythm: Sinus Rhythm Ectopy: None No tele E- Emotional & Neuro: Participating in cares Neuro Alert and Oriented R- Respiratory: On room air H- Head OUT of Bed & Activity: Activate Fall Alert? (Enter 1 or 0): (not recorded) Ambulating independently Progressive mobility Phases 5-7: Phase 7: 250 feet or more U- Urologic/bowel: No data recorded Voiding via bathroom G- Glycemic Control: Not applicable T- Treatment: Pain mgt, Labs, I&D, plan for OR 1200 I- Invasive Devices: PIV x 1 D- Discharge: TBD * Nellie Garcia RN - 02/10/2025 6:07 PM CDT Med-Surg Care Progression Note Type: Shift to shift summary [id number] Length of stay: 2 days Code Status: Full Code Primary Problem: Osteomyelitis (Hands pain, Gangrene) 02/09 I&D and R index finger amputation Right hand splint and NARCISA wrapped, dressing was changed today. Pain managed with Dilaudid and Oxycodone,Robaxin,Neurontin with effect and less nausea. IVABX and fluid infusing F- Feeding & Fluids: Regular diet with thin liquids A- Analgesic & Anticoagulation: Comfort Goal: Numeric, Verbal, Faces: 4 - Moderate Analgesic PRN Oxycodone Dilaudid Robaxin, Scheduled Neurontin Tylenol. Anticoagulation/DVT prevention & plan SCDs S- Skin: Regulo Subcategory Concern(s): Sensory Perception: Slightly Limited Moisture: Occasionally Moist Activity: Walks Occasionally Activity Interventions: Safer bundle Nutrition: Adequate Nutrition Interventions: Calorie intake but now NPO Mobility: Slightly Limited Friction and Shear: Potential Problem Total Regulo Score: 17: Ambulate independently/SBA see pictures for skin impairment T- Telemetry: Rhythm: Sinus Rhythm Ectopy: None No tele E- Emotional & Neuro: Participating in cares Neuro Alert and Oriented R- Respiratory: On room air H- Head OUT of Bed & Activity: Activate Fall Alert? (Enter 1 or 0): (not recorded) Ambulating independently Progressive mobility Phases 5-7: Phase 7: 250 feet or more U- Urologic/bowel: No data recorded Voiding via bathroom G- Glycemic Control: Not applicable T- Treatment: Pain mgt, Labs, I&D, plan for OR tomorrow I- Invasive Devices: PIV x 1 D- Discharge: TBD Blood pressure 132/81, pulse 81, temperature 98.9 ??F (37.2 ??C), resp. rate 16, height 5' 1 (1.549 m), weight 53.6 kg (118 lb 2.7 oz), SpO2 97%, not currently . Problem: Falls/Injury-Risk of Goal: Absence of Falls/Injury Outcome: Ongoing Flowsheets (Taken 02/10/2025 0751) Environmental Safety Interventions: Standard Interventions in Place Fall Risk Light on Outside Patient Room Fall Risk computer education professor Door (NMR) Mobility Safety Interventions: Standard Interventions in Place Stay Within Arms Reach Use Assistive Device When Patient Is Up Transfer/Gait Belt In Use When Patient Is Up Problem: Tobacco Use or Exposure Goal: Adheres to tobacco-free environment Outcome: Ongoing 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, Surgical Site Infection Goal: Verbalizes an understanding of infection risks and prevention measures Outcome: Ongoing Problem: Pain Goal: Exhibits reduction in pain to a level of acceptable comfort Outcome: Ongoing * Carlene Rosen PA-C - 02/10/2025 1:55 PM CDT Images from the original note were not included. HOSPITALIST DIVISION PROGRESS NOTE INTERVAL EVENTS: Chart reviewed. No acute events overnight. CHIEF COMPLAINT: pain SUBJECTIVE Patient seen and examined this afternoon. She reports that she is doing ok but that she is still having pain, better now though than it was this morning. She reports that her opioids have been decreased, reviewed that her doses are ordered the same as yesterday and that she also has vistaril, gabapentin, and robaxin. She reports that she was nauseous last night and thinks it was from the dinner she had. She reports that she wasn't being given zofran even though she was asking for it, reviewed that she can get it every 8 hrs and if she needs something in between can get compazine. She reports that she is agreeable to additional surgery tomorrow. She denies any other acute concerns. All questions answered. OBJECTIVE BP (!) 125/92 Pulse 85 Temp 97.6 ??F (36.4 ??C) Resp 16 Ht 5' 1 (1.549 m) Wt 53.6 kg (118 lb 2.7 oz) LMP (LMP Unknown) SpO2 99% No BMI 22.33 kg/m?? Intake/Output Summary (Last 24 hours) at 02/10/2025 1355 Last data filed at 02/10/2025 0550 Gross per 24 hour Intake 896.47 ml Output -- Net 896.47 ml EXAM: BP (!) 125/92 Pulse 85 Temp 97.6 ??F (36.4 ??C) Resp 16 Ht 5' 1 (1.549 m) Wt 53.6 kg (118 lb 2.7 oz) LMP (LMP Unknown) SpO2 99% No BMI 22.33 kg/m?? O2 Delivery Source: Room Air Wt Readings from Last 2 Encounters: 02/08/25 53.6 kg (118 lb 2.7 oz) Temp (24hrs), Av ??F (36.7 ??C), Min:97.6 ??F (36.4 ??C), Max:98.3 ??F (36.8 ??C) Body mass index is 22.33 kg/m??. GENERAL: Patient is alert and oriented. No acute distress, resting comfortably. HEENT: Normocephalic, atraumatic. CHEESH-NA (hears better w low pitch) RESPIRATORY: Lungs clear to auscultation bilaterally. Symmetrical chest expansion. No increased work of breathing. No rhonci, crackles, or wheezes. CARDIOVASCULAR: Regular rate and rhythm. Normal S1/S2. No murmur, rub, or gallop. GASTROINTESTINAL: Abdomen soft, non-distended, non-tender to palpation. Bowel sounds present. No masses or hepatosplenomegaly. MUSCULOSKELETAL: s/p R index finger amputation, dressing in place. Additional dry gangrene of additional fingers on L with varying degrees of auto-amputations SKIN: Warm, dry, intact NEUROLOGIC: Cranial nerves II-XII grossly intact EXTREMITIES: No edema, clubbing, or cyanosis. Moves all extremities LABS: Results for orders placed or performed during the hospital encounter of 02/08/25 (from the past 24 hours) CBC (HGB,HCT,WBC,RBC,Platelet) Result Value Ref Range WBC 12.3 (H) 4.3 - 10.8 K/uL RBC 2.75 (L) 4.20 - 5.40 M/uL Hemoglobin 9.8 (L) 12.0 - 16.0 gm/dL Hematocrit 32.1 (L) 36.0 - 48.0 % MCV 117 (H) 80 - 100 fL MCH 36 (H) 27 - 33 pg MCHC 31 (L) 33 - 36 gm/dL RDW 15.5 (H) 11.5 - 14.5 % Platelet Count 355 150 - 400 K/UL MPV 9.6 6.5 - 12 fL Basic Metabolic Profile Magnesium Result Value Ref Range Sodium 142 136 - 145 mmol/L Potassium 3.7 3.4 - 5.1 mmol/L Chloride 107 98 - 108 mmol/L Carbon Dioxide 31 20 - 31 mmol/L BUN (Urea Nitro) 12 9 - 23 mg/dL Creatinine 0.82 0.55 - 1.02 mg/dL Est GFR (CKD-EPI) >60.00 >60.00 mL/min/1.73m2 Glucose 90 74 - 106 mg/dL Calcium, Serum 8.9 8.7 - 10.4 mg/dL Anion Gap 4.0 0.0 - 15.0 mmol/L Magnesium 2.0 1.6 - 2.6 mg/dL IMAGING: No results found. EKG: Lab Results Component Value Date EKG 02/08/2025 Comment: [facility] Test Date: 2025-02-08 Pat Name: HANNAH LOO Department: Room: A783 Gender: F 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1980 Requested By: YANY INGRAM MD Order Number: [id number] Reading MD: YANY INGRAM MD Measurements Intervals [place] Rate: 95 P: 74 NM: 140 QRS: 24 QRSD: 95 T: 60 QT: 339 QTc: 391 Interpretive Statements SINUS RHYTHM LOW QRS VOLTAGE IN PRECORDIAL LEADS [QRS DEFLECTION < 1.0 mV IN CHEST LEADS] SEPTAL MYOCARDIAL INFARCTION [40+ ms Q WAVE IN V1/V2], OF INDETERMINATE AGE ABNORMAL ECG No previous ECG available for comparison Additional Comments: I have reviewed the patient's new clinical lab results I have reviewed the patient's medications. I discussed the plan of care with the patient and RN, Plastics. ASSESSMENT: This is a 44 y.o. 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 The case was discussed with orthopedic surgery and vascular surgery at [facility], who recommended transfer to [facility] for hand specialist evaluation. Patient was started on vanc + zosyn prior to transfer. 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 Technically met sepsis criteria on admit w leukocytosis and tachycardia (101), though tachycardia could also be related to pain. HR since normalized. Right second digit with wet gangrene. Left second and fifth digit with necrosis. Transferred from outside hospital for hand/plastics specialist. Started on Vanco/Zosyn on admit. WBC improving to 11- 12. Underwent I&D and removal of R index finger 02/09, Cx with growth of Staph aureus and GNB, on Vanc/Zosyn. Path pend. Plan for additional procedure tomorrow. Some issues w pain control, regimen as below. -Plastics consult, apprec recs: -TID dressing changes to right hand (orders in place) -return to OR tomorrow for repeat I &D and possible ray amputation to right 2nd finger. -continue with vanco+ zosyn -Pain control-lakeisha tylenol, oxycodone 5-10 q4h prn, Iv dilaudid (for when npo or not controlled by oral), gabapentin 200mg TID, prn vistaril, prn robaxin REBECA Baseline Cr 0.3-0.5. Cr today rising to 0.82, meets criteria for REBECA with rise in Cr >0.2. Will give gentle IVF and recheck in AM, no NSAIDs. May be related to van/zosyn, if no improvement in Cr tomorrow may need adjustment of abx pending cx results. -IVF Lr 100cc/hr x 24hrs -Avoid nephrotoxic meds -Daily BMP N/V PUD Dtr reports that pt has ulcers and was supposed to have EGD at [place] but wasn't able to advance scope (?stricture, unable to see report in careeverywhere). On PPI and pepcid. No evidence of bleeding currently but monitor. Reports some nausea/vomiting overnight (reports that it was due to bad dinner), improving w ant-emetics. -monitor for bloody stools, hematmesis -cont PPI, Pepcid -zofran, compazine Tobacco dependence Pt reports that she is working on quitting. -NRT while here (ok per Plastics) -recommend complete cessation Anemia, microcytic Hgb 10.1, unknown baseline. Repeat stable at 10->9.8. -continue to monitor Hypokalemia, Resolved K 3.2, replaced w improvemnet, K 3.7 -K/MG protocol ?CAD EKG w poss prev septal MO of indeterminate age. -outpt stress test CODE STATUS: Full Code DVT prophylaxis: none w plan for procedure tomorrow, ambulatory GI prophylaxis: PPI ACCESS: PIV RESTRAINTS: none DISPOSITION: Anticipated date of discharge 3+ days, Criteria for discharge is additional plastics procedure, wound cx results, transitioned to PO abx, cleared by Plastics, improvement in Cr, stability for dc. Family Communication: Family-dtr Daniela-called, no answer, left VM Case discussed with Dr. Coelho. Wound: Skin Condition/Wound Non-Pressure Leathery;Flaky Right;Lower Foot (Active) First Observed/Origin Date/First Observed/Origin Time: 02/08/25 0118 Primary Wound Type: Skin Condition/Wound Non-Pressure Present on Original Admission: Yes Skin Condition Type: Leathery;Flaky Orientation: Right;Lower Location: Foot Wound: Skin Condition/Wound Non-Pressure Flaky;Leathery Lower;Left Foot (Active) First Observed/Origin Date/First Observed/Origin Time: 02/08/25 0000 Primary Wound Type: Skin Condition/Wound Non-Pressure Present on Original Admission: Yes Skin Condition Type: Flaky;Leathery Orientation: Lower;Left Location: Foot Wound: Skin Condition/Wound Non-Pressure Reddened (Non-Pressure Related) Left Hand (Active) First Observed/Origin Date/First Observed/Origin Time: 02/08/25 0000 Primary Wound Type: Skin Condition/Wound Non-Pressure Present on Original Admission: Yes Skin Condition Type: Reddened (Non-Pressure Related) Orientation: Left Location: Hand Wound: Skin Condition/Wound Non-Pressure Reddened (Non-Pressure Related) Right Hand (Active) First Observed/Origin Date/First Observed/Origin Time: 02/08/25 0000 Primary Wound Type: Skin Condition/Wound Non-Pressure Present on Original Admission: Yes Skin Condition Type: Reddened (Non-Pressure Related) Orientation: Right Location: Hand Wound: Skin Condition/Wound Non-Pressure Reddened (Non-Pressure Related) Right Hand (Active) First Observed/Origin Date/First Observed/Origin Time: 02/08/25 0000 Primary Wound Type: Skin Condition/Wound Non-Pressure Present on Original Admission: Yes Skin Condition Type: Reddened (Non-Pressure Related) Orientation: Right Location: Hand Wound: Surgical/Procedure Site Incision Right Finger (Active) First Observed/Origin Date/First Observed/Origin Time: 02/09/25 1047 Primary Wound Type: Surgical/Procedure Site Incision Type: Incision Orientation: Right Location: Finger Description: Right hand index finger Carlene Rosen (previously SALEEM [facility] Medicine Available through [employer] 8:00am-6:00pm * Katheryn Mai PT - 02/10/2025 9:55 AM CDT Physical Therapy Attempted PT evaluation this AM however patient declined d/t not feeling well and needing to have emesis. Assistant Signal Maintainer provided emesis bucket per request and updated RN. PT to re-attempt tomorrow as schedule allows. * Lanie Sotelo, DNP,STOVE INSTALLER - 02/10/2025 7:33 AM CDT PLASTIC SURGERY PROGRESS NOTE POD # 1: 1. Incision and drainage of extensive collar-button subcutaneous abscess involving radial half of the palm 2. Disarticulation of right index finger through metacarpophalangeal joint SUBJECTIVE Resting in bed, refusing dressing change due to pain. She is currently on APAP, neurontin, dilaudidIV, vistaril, robaxin, and oxycodone. She is tolerating PO. OBJECTIVE Temp (24hrs), Av.3 ??F (36.8 ??C), Min:97.8 ??F (36.6 ??C), Max:99.1 ??F (37.3 ??C) BP 109/83 Pulse 87 Temp 98.3 ??F (36.8 ??C) Resp 14 Ht 5' 1 (1.549 m) Wt 53.6 kg (118 lb2.7 oz) LMP (LMP Unknown) SpO2 92% No BMI 22.33 kg/m?? Intake/Output Summary (Last 24 hours) at 02/10/2025 0733 Last data filed at 02/10/2025 0550 Gross per 24 hour Intake 1796.47 ml Output -- Net 1796.47 ml Gen: Sitting up in bed, in NAD Cardiovascular: hemodynamically stable Respiratory: quiet, non-labored breathing. RA Breasts: GI: tolerating PO Extremities: dressing in place to right hand. Left hand with dry gangrene fingers. Neuro: A&O. Speech: clear. Following commands : voiding Psych: flat affect Labs: WBC Date Value Ref Range Status 02/09/2025 11.5 (H) 4.3 - 10.8 K/uL Final 02/08/2025 16.1 (H) 4.3 - 10.8 K/uL Final 02/08/2025 15.5 (H) 4.3 - 10.8 K/uL Final Hemoglobin Date Value Ref Range Status 02/09/2025 10.0 (L) 12.0 - 16.0 gm/dL Final 02/08/2025 10.3 (L) 12.0 - 16.0 gm/dL Final 02/08/2025 10.1 (L) 12.0 - 16.0 gm/dL Final , No results found for: INR, Platelet Count Date Value Ref Range Status 02/09/2025 337 150 - 400 K/UL Final 02/08/2025 347 150 - 400 K/UL Final 02/08/2025 370 150 - 400 K/UL Final ASSESSMENT: 44 yo female with gangrene to right hand now s/p I &D and disarticulation of right index finger. Pain: APAP, neurontin, dilaudid IV, vistaril, robaxin, and oxycodone. 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 Antibiotics: zosyn and vancomycin day 2 Escalera: none PLAN: -TID dressing changes to right hand (orders in place) -return to OR tomorrow for repeat I &D and possible ray amputation to right 2nd finger. -remainder of cares per primary team -discussed with bedside RN and hospital medicine SALEEM Sotelo APRN, PRASANNA ADDENDUM: Dressing change at bedside this afternoon. Updated photos. Scant serosanguinous drainage on dressing. At 2nd digit the skin is erythematous, but blanchable. Incisions intact. Vessel loop present. * Mercedez Hui RN - 02/10/2025 4:45 AM CDT Med-Surg Care Progression Note Type: Shift to shift summary [id number] Length of stay: 2 days Code Status: Full Code Primary Problem: Osteomyelitis (Hands pain, Gangrene) now s/p right hand I &D and index finger amputation on 02/09/25.Right hand splinted and wrapped with Narcisa wrap. Summary:No acute events overnight, patient continues to be alert and oriented, able to make needs known, vitally stable on RA, K/Mag at goal, dressing c/d/I,pain constantly managed using all available pain regimens . No other concern at this point. Nursing staff will continue to monitor and follow plan of care. F- Feeding & Fluids: Tolerating Reg diet A- Analgesic & Anticoagulation: Comfort Goal: Numeric, Verbal, Faces: 4 - Moderate Analgesic PRN pain regiment given (See MAR) Anticoagulation/DVT prevention & plan SCDs S- Skin: Regulo Subcategory Concern(s): Sensory Perception: No Impairment Moisture: Occasionally Moist Moisture Interventions: Minimize chux/linen layers Activity: Walks Occasionally Activity Interventions: Low air loss mattress and Safer bundle Nutrition: Adequate Nutrition Interventions: Calorie intake Mobility: No Limitations Friction and Shear: No Apparent Problem Total Regulo Score: 20: T- Telemetry: Rhythm: Sinus Rhythm Ectopy: None No tele E- Emotional & Neuro: Participating in cares Neuro Alert and Oriented R- Respiratory: On room air H- Head OUT of Bed & Activity: Activate Fall Alert? (Enter 1 or 0): (not recorded) Ambulating independently Progressive mobility Phases 5-7: Phase 7: 250 feet or more U- Urologic/bowel: No data recorded Voiding via bathroom G- Glycemic Control: Not applicable T- Treatment: Labs , Pain mgt, monitor surgical sites I- Invasive Devices: PIV D- Discharge: Discharge criteria not met. * Clint Brooks RN - 02/09/2025 10:32 PM CDT Med-Surg Care Progression Note Type: Shift to shift summary Length of stay: 1 days Code Status: Full Code Primary Problem: Osteomyelitis (Hands pain, Gangrene) Summary: had right hand I&D and index finger amputation today. Right hand splint and wrapped with NARCISA Wrap. Dressing remains CDI. Pain managed with Dilaudid and Oxycodone. She got nauseated possible d/t Dilaudid? Zofran given. IVABX infusing F- Feeding & Fluids: regular diet A- Analgesic & Anticoagulation: Comfort Goal: Numeric, Verbal, Faces: 4 - Moderate Analgesic PRN pain regimens administered throughout this shift for right hand pain Anticoagulation/DVT prevention & plan SCDs S- Skin: Regulo Subcategory Concern(s): Sensory Perception: No Impairment Moisture: Occasionally Moist Activity: Walks Occasionally Activity Interventions: Safer bundle Nutrition: Adequate Nutrition Interventions: Calorie intake but now NPO Mobility: No Limitations Friction and Shear: No Apparent Problem Total Regulo Score: 20: Ambulate independently T- Telemetry: Rhythm: Sinus Rhythm Ectopy: None No tele E- Emotional & Neuro: Participating in cares Neuro Alert and Oriented R- Respiratory: On room air H- Head OUT of Bed & Activity: Activate Fall Alert? (Enter 1 or 0): (not recorded) Ambulating independently Progressive mobility Phases 5-7: Phase 7: 250 feet or more U- Urologic/bowel: No data recorded Voiding via bathroom G- Glycemic Control: Not applicable T- Treatment: Labs , pain mgt, I&D and amputation of right index finger today I- Invasive Devices: PIV x 1 D- Discharge: TBD * Haily Noel - 02/09/2025 4:39 PM CDT Reason for Encounter: To provide Emotional and Spiritual support Summary: I visited Hannah while rounding the unit to assess any emotional and spiritual need and offer support. Hannah shared she was in pain and asked me to visit at another time. Plan: Chaplains will continue to be available for emotional and spiritual support as requested. Spiritual Care is available 17/04. 6:30 am - 11:00 pm please re-consult through [employer]. After hours orfor urgent requests, page the on-call bituminous distributor operator. Rev. Haily Noel MA Studio Artist 02/09/2025 * Lynnette Donald RN - 02/09/2025 3:07 PM CDT Med-Surg Care Progression Note Type: Shift to shift summary Length of stay: 1 days Code Status: Full Code Primary Problem: Osteomyelitis R hand, Gangrene. 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 DO: s/p right hand irrigation and debridement and amputation of right index finger. Summary:Pt arrived to the @ 1300 in severe pain, provider order extra iv pain medication and oral. Pt is comfortable now, post op vitals running and stable. F- Feeding & Fluids: Tolerating regular diet with thin liquids A- Analgesic & Anticoagulation: Comfort Goal: Numeric, Verbal, Faces: 4 - Moderate Analgesic Prn oxycodone, iv dilaudid Anticoagulation/DVT prevention & plan SCDs S- Skin: Regulo Subcategory Concern(s): Sensory Perception: No Impairment Moisture: Rarely Moist Activity: Walks Occasionally Activity Interventions: Reposition every 2 hours Nutrition: Adequate Nutrition Interventions: Calorie intake Mobility: No Limitations Friction and Shear: No Apparent Problem Total Regulo Score: 21: T- Telemetry: Rhythm: Sinus Rhythm Ectopy: None No tele E- Emotional & Neuro: Participating in cares Neuro Alert and Oriented R- Respiratory: On room air H- Head OUT of Bed & Activity: Activate Fall Alert? (Enter 1 or 0): (not recorded) independent. Early mobility Phases 1-4: Phase 4: Ambulation U- Urologic/bowel: No data recorded Voiding wnl G- Glycemic Control: Not applicable T- Treatment: pain management, IV abx, labs, plastic and ID following. I- Invasive Devices: Piv x 1 D- Discharge: TBD * Carlene Rosen PA-C - 02/09/2025 7:53 AM CDT Images from the original note were not included. HOSPITALIST DIVISION PROGRESS NOTE INTERVAL EVENTS: Chart reviewed. No acute events overnight. NPO for debridement surgery today w Plastics. WBC 16->11. CHIEF COMPLAINT: pain SUBJECTIVE Patient seen and examined this afternoon following surgery. She reports that she is having a lot ofpain post op. She reports that she can't get comfortable. She reports that she is hungry. She reports that she doesn't want to talk about other things right now until she gets her pain better controlled. She denies any other acute concerns apart from the pain. OBJECTIVE BP 105/76 Pulse 100 Temp 98.4 ??F (36.9 ??C) Resp 16 Ht 5' 1 (1.549 m) Wt 53.6 kg (118 lb 2.7 oz) LMP (LMP Unknown) SpO2 96% No BMI 22.33 kg/m?? Intake/Output Summary (Last 24 hours) at 02/09/2025 0753 Last data filed at 02/09/2025 0048 Gross per 24 hour Intake 1578.81 ml Output -- Net 1578.81 ml EXAM: BP 105/76 Pulse 100 Temp 98.4 ??F (36.9 ??C) Resp 16 Ht 5' 1 (1.549 m) Wt 53.6 kg (118 lb 2.7 oz) LMP (LMP Unknown) SpO2 96% No BMI 22.33 kg/m?? O2 Delivery Source: Room Air Wt Readings from Last 2 Encounters: 02/08/25 53.6 kg (118 lb 2.7 oz) Temp (24hrs), Av.5 ??F (36.9 ??C), Min:97.8 ??F (36.6 ??C), Max:98.9 ??F (37.2 ??C) Body mass index is 22.33 kg/m??. GENERAL: Patient is alert and oriented. Mild-mod tearful, resting uncomfortably. HEENT: Normocephalic, atraumatic. RESPIRATORY: Lungs clear to auscultation bilaterally. Symmetrical chest expansion. No increased work of breathing. No rhonci, crackles, or wheezes. CARDIOVASCULAR: tachycardia Regular rhythm. Normal S1/S2. No murmur, rub, or gallop. GASTROINTESTINAL: Abdomen soft, non-distended, non-tender to palpation. Bowel sounds present. No masses or hepatosplenomegaly. MUSCULOSKELETAL: s/p index finger amputation, dressing in place SKIN: Warm, dry, intact NEUROLOGIC: Cranial nerves II-XII grossly intact EXTREMITIES: No edema, clubbing, or cyanosis. Moves all extremities LABS: Results for orders placed or performed during the hospital encounter of 02/08/25 (from the past 24 hours) HCG Urine Result Value Ref Range hCG Urine Negative Negative Potassium, Serum Result Value Ref Range Potassium 4.0 3.4 - 5.1 mmol/L IMAGING: No results found. EKG: Lab Results Component Value Date EKG 02/08/2025 Comment: [facility] Test Date: 2025-02-08 Pat Name: HANNAH LOO Department: A7 Room: A783 Gender: F 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1980 Requested By: YANY INGRAM MD Order Number: [id number] Reading MD: YANY INGRAM MD Measurements Intervals [place] Rate: 95 P: 74 NM: 140 QRS: 24 QRSD: 95 T: 60 QT: 339 QTc: 391 Interpretive Statements SINUS RHYTHM LOW QRS VOLTAGE IN PRECORDIAL LEADS [QRS DEFLECTION < 1.0 mV IN CHEST LEADS] SEPTAL MYOCARDIAL INFARCTION [40+ ms Q WAVE IN V1/V2], OF INDETERMINATE AGE ABNORMAL ECG No previous ECG available for comparison Additional Comments: I have reviewed the patient's new clinical lab results I have reviewed the patient's medications. I discussed the plan of care with the patient and RN, CM, family. ASSESSMENT: This is a 44 y.o. 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 The case was discussed with orthopedic surgery and vascular surgery at [facility], who recommended transfer to [facility] for hand specialist evaluation. Patient was started on vanc + zosyn prior to transfer. PLAN R Index Finger Wet gangrene w Osteomyelitis s/p Disarticulation of R Index Finger, I&D Palm Abscess (02/09/25) R Hand Cellulitis Possible Sepsis, POA, 2/2 above R Middle Finger Dry Gangrene L Middle Finger Dry Gangrene Buerger's disease Admit WBC 15.5->16, CRP 8.2, lactate 0.8. Technically met sepsis criteria on admit w leukocytosis and tachycardia (101), though tachycardia could also be related to pain. HR since normalized. Right second digit with wet gangrene. Left second and fifth digit with necrosis. Transferred from outside hospital for hand/plastics specialist. Started on Vanco/Zosyn on admit. WBC improving to 11. Underwent I&D and removal of R index finger today, path/Cx pending. Plan for additional procedure Monday. -Plastics consult, apprec recs: -Elevation and gentle compression overnight - Initiate wound care tomorrow morning -Return to the operating room in 2 days for second look surgery and possible ray amputation -continue with vanco+ zosyn -Pain control-tylenol, oxycodone, dilaudid -added vistaril, gabapentin, robaxin due to pt reporting high pain post op despite use of tylenol and opioids, also gave toradol x1 Tobacco dependence Pt reports that she is working on quitting. -NRT while here (ok per Plastics) -recommend complete cessation Anemia, microcytic Hgb 10.1, unknown baseline. Repeat stable at 10. -continue to monitor Hypokalemia, Resolved K 3.2, replaced w improvemnet, K 3.7 -K/MG protocol ?CAD EKG w poss prev septal MO of indeterminate age. -outpt stress test CODE STATUS: Full Code DVT prophylaxis: SCDs, ambulatory GI prophylaxis: PPI ACCESS: PIV RESTRAINTS: none DISPOSITION: Anticipated date of discharge ~1 week, Criteria for discharge is additional surgical procedures, off Iv abx, cleared by Plastics. Family Communication: Family-Dtr Hui updated on results and plan of care on 02/09/2025. Case discussed with Dr. Coelho. Wound: Skin Condition/Wound Non-Pressure Leathery;Flaky Right;Lower Foot (Active) First Observed/Origin Date/First Observed/Origin Time: 02/08/25 0118 Primary Wound Type: Skin Condition/Wound Non-Pressure Present on Original Admission: Yes Skin Condition Type: Leathery;Flaky Orientation: Right;Lower Location: Foot Wound: Skin Condition/Wound Non-Pressure Flaky;Leathery Lower;Left Foot (Active) First Observed/Origin Date/First Observed/Origin Time: 02/08/25 0000 Primary Wound Type: Skin Condition/Wound Non-Pressure Present on Original Admission: Yes Skin Condition Type: Flaky;Leathery Orientation: Lower;Left Location: Foot Wound: Skin Condition/Wound Non-Pressure Reddened (Non-Pressure Related) Left Hand (Active) First Observed/Origin Date/First Observed/Origin Time: 02/08/25 0000 Primary Wound Type: Skin Condition/Wound Non-Pressure Present on Original Admission: Yes Skin Condition Type: Reddened (Non-Pressure Related) Orientation: Left Location: Hand Wound: Skin Condition/Wound Non-Pressure Reddened (Non-Pressure Related) Right Hand (Active) First Observed/Origin Date/First Observed/Origin Time: 02/08/25 0000 Primary Wound Type: Skin Condition/Wound Non-Pressure Present on Original Admission: Yes Skin Condition Type: Reddened (Non-Pressure Related) Orientation: Right Location: Hand Wound: Skin Condition/Wound Non-Pressure Reddened (Non-Pressure Related) Right Hand (Active) First Observed/Origin Date/First Observed/Origin Time: 02/08/25 0000 Primary Wound Type: Skin Condition/Wound Non-Pressure Present on Original Admission: Yes Skin Condition Type: Reddened (Non-Pressure Related) Orientation: Right Location: Hand Carlene Rosen (previously [facility] Medicine Available through [employer] 8:00am-6:00pm * Mercedez Hui RN - 02/09/2025 6:14 AM CDT Med-Surg Care Progression Note Type: Shift to shift summary [id number] Length of stay: 1 days Code Status: Full Code Primary Problem: Osteomyelitis (Hands pain, Gangrene) Summary:No acute changes overnight, patient continues to be alert and oriented, able to make needs known, vitally stable on RA, K/Mag at goal, pain constantly managed using all available pain regimens . No other concern at this point. Nursing staff will continue to monitor and follow plan of care. F- Feeding & Fluids: NPO since midnight for I&D and amputation of right index finger A- Analgesic & Anticoagulation: Analgesic PRN pain regimens administered throughout this shift for bilateral hands pain Anticoagulation/DVT prevention & plan SCDs S- Skin: Regulo Subcategory Concern(s): Sensory Perception: No Impairment Moisture: Rarely Moist Activity: Walks Occasionally Activity Interventions: Safer bundle Nutrition: Adequate Nutrition Interventions: Calorie intake but now NPO Mobility: No Limitations Friction and Shear: No Apparent Problem Total Regulo Score: 21: Ambulate independently T- Telemetry: No tele E- Emotional & Neuro: Participating in cares Neuro Alert and Oriented R- Respiratory: On room air H- Head OUT of Bed & Activity: Activate Fall Alert? (Enter 1 or 0): (not recorded) Ambulating independently Progressive mobility Phases 5-7: Phase 7: 250 feet or more U- Urologic/bowel: No data recorded Voiding via bathroom G- Glycemic Control: Not applicable T- Treatment: Labs , pain mgt, I&D and amputation of right index finger today I- Invasive Devices: PIV x 2 D- Discharge: TBD * Bernardo Ruelas RN - 02/08/2025 9:49 PM CDT Med-Surg Care Progression Note Type: Shift to shift summary Length of stay: 0 days Code Status: Full Code Primary Problem: Hand pain, gangrene. Summary: Patient continous with pain in hands, PRN Dilaudid utilized and efective. NPO at midnight for debridement surgery tomorrow. F- Feeding & Fluids: Regular diet. NPO @ midnight A- Analgesic & Anticoagulation: Analgesic Pain medication available. Dilaudid utilized. Anticoagulation/DVT prevention & plan SCDs S- Skin: Regulo Subcategory Concern(s): Sensory Perception: No Impairment Moisture: Rarely Moist Activity: Walks Occasionally Activity Interventions: weight shifts Nutrition: Adequate Nutrition Interventions: Calorie intake Mobility: No Limitations Friction and Shear: No Apparent Problem Total Regulo Score: 21: Wound care to hands T- Telemetry: No tele E- Emotional & Neuro: Participating in cares Neuro Alert and Oriented R- Respiratory: On room air H- Head OUT of Bed & Activity: Activate Fall Alert? (Enter 1 or 0): (not recorded) independently Early mobility Phases 1-4: Phase 4: Ambulation U- Urologic/bowel: No data recorded Voiding WDL G- Glycemic Control: Not applicable T- Treatment: Labs , K/mag, pain management. 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 Summary: plastic saw pt and changed her dressing. Plan for debridement tomorrow. Pt reports severe pain. K+ replacement in progress. F- Feeding & Fluids: Tolerating regular diet with thin liquids. NPO after MN. A- Analgesic & Anticoagulation: Analgesic Prn dilaudid Anticoagulation/DVT prevention & plan SCDs S- Skin: Regulo Subcategory Concern(s): Sensory Perception: No Impairment Moisture: Occasionally Moist Moisture Interventions: Change gown/bath/hygiene Activity: Walks frequently Nutrition: Adequate Nutrition Interventions: Calorie intake Mobility: No Limitations Friction and Shear: No Apparent Problem Total Regulo Score: 21: wound care,dressing changes 3 times a day. T- Telemetry: No tele E- Emotional & Neuro: Participating in cares Neuro Alert and Oriented R- Respiratory: On room air H- Head OUT of Bed & Activity: Activate Fall Alert? (Enter 1 or 0): (not recorded) Ambulating independently Progressive mobility Phases 5-7: Phase 7: 250 feet or more U- Urologic/bowel: No data recorded Voiding WNL G- Glycemic Control: Not applicable T- Treatment: pain management,Labs , K+/ Mag protocol, wound care,plastic surgery following I- Invasive Devices: piv x 2 D- Discharge: TBD * Carlene Rosen PA-C - 02/08/2025 7:59 AM CDT Images from the original note were not included. HOSPITALIST DIVISION PROGRESS NOTE INTERVAL EVENTS: Chart reviewed. No acute events overnight. WBC 15->16. On Vanc/Zosyn. CHIEF COMPLAINT: Pain SUBJECTIVE Patient seen and examined this afternoon. She reports she is having pain in her R finger. She reports that she started to have increased pain and signs of infection 3 days ago. She reports that she was noting purulent drainage. She reports that she is agreeable surgery. She denies any chest pain, shortness of breath, or abdominal pain. She reports that she has been working on quitting tobacco, has cut down from 5 packs a day to 1 pack a day, is going to quit. She reports that her IV velasco with the potassium. She denies any other acute concerns. Plastics reviews surgery plans. OBJECTIVE BP 120/82 Pulse (!) 103 Temp 98.6 ??F (37 ??C) Resp 17 Ht 5' 1 (1.549 m) Wt 53.6 kg (118lb 2.7 oz) LMP (LMP Unknown) SpO2 96% No BMI 22.33 kg/m?? No intake or output data in the 24 hours ending 02/08/25 0759 EXAM: BP 120/82 Pulse (!) 103 Temp 98.6 ??F (37 ??C) Resp 17 Ht 5' 1 (1.549 m) Wt 53.6 kg (118lb 2.7 oz) LMP (LMP Unknown) SpO2 96% No BMI 22.33 kg/m?? O2 Delivery Source:Room Air Wt Readings from Last 2 Encounters: 02/08/25 53.6 kg (118 lb 2.7 oz) Temp (24hrs), Av.8 ??F (37.1 ??C), Min:98.6 ??F (37 ??C), Max:98.9 ??F (37.2 ??C) Body mass index is 22.33 kg/m??. GENERAL: Patient is alert and oriented. No acute distress, resting comfortably. HEENT: Normocephalic, atraumatic. CHEESH-NA RESPIRATORY: Lungs clear to auscultation bilaterally. Symmetrical chest expansion. No increased work of breathing. No rhonci, crackles, or wheezes. CARDIOVASCULAR: Regular rate and rhythm. Normal S1/S2. No murmur, rub, or gallop. GASTROINTESTINAL: Abdomen soft, non-distended, non-tender to palpation. Bowel sounds present. No masses or hepatosplenomegaly. MUSCULOSKELETAL: Without obvious deformity, normal range of motion. SKIN: Warm, dry, intact (apart from below) NEUROLOGIC: Cranial nerves II-XII grossly intact EXTREMITIES: R hand erythematous with pus coming out at base of R index finger, R index finger black w weeping. Additional dry gangrene of additional fingers on R and L. No edema, clubbing, or cyanosis. Moves all extremities LABS: Results for orders placed or performed during the hospital encounter of 02/08/25 (from the past 24 hours) CBC / Diff Result Value Ref Range WBC 15.5 (H) 4.3 - 10.8 K/uL RBC 2.88 (L) 4.20 - 5.40 M/uL Hemoglobin 10.1 (L) 12.0 - 16.0 gm/dL Hematocrit 32.6 (L) 36.0 - 48.0 % MCV 113 (H) 80 - 100 fL MCH 35 (H) 27 - 33 pg MCHC 31 (L) 33 - 36 gm/dL RDW 15.3 (H) 11.5 - 14.5 % Platelet Count 370 150 - 400 K/UL MPV 8.9 6.5 - 12 fL PMN % 86.5 % IG % 0.8 <=1.0 % Lymphocyte % 7.8 % Monocyte % 4.1 % Eosinophil % 0.5 % Basophil % 0.3 % PMN Absolute 13.42 (H) 1.80 - 7.80 K/uL Lymphocyte Absolute 1.21 1.00 - 4.00 K/uL Monocyte Absolute 0.64 0.00 - 1.00 K/uL Eosinophil Absolute 0.08 0.00 - 0.45 K/uL Basophil Absolute 0.04 0.00 - 0.20 K/uL Nucl RBC % 0.0 0.0 - 0.0 /100 WBC Nucl RBC Absolute 0.00 0.00 - 0.00 K/uL Basic Metabolic Profile Result Value Ref Range Sodium 139 136 - 145 mmol/L Potassium 3.5 3.4 - 5.1 mmol/L Chloride 107 98 - 108 mmol/L Carbon Dioxide 28 20 - 31 mmol/L BUN (Urea Nitro) 8 (L) 9 - 23 mg/dL Creatinine 0.28 (L) 0.55 - 1.02 mg/dL Est GFR (CKD-EPI) >60.00 >60.00 mL/min/1.73m2 Glucose 77 74 - 106 mg/dL Calcium, Serum 8.0 (L) 8.7 - 10.4 mg/dL Anion Gap 4.0 0.0 - 15.0 mmol/L C-Reactive Protein Result Value Ref Range C Reactive Protein 8.2 (H) <=0.5 mg/dL Type and Screen Result Value Ref Range Group and Rh A Positive Antibody Screen Negative Lactic Acid Result Value Ref Range Lactic Acid 0.8 0.7 - 2.1 mmol/L ABORh Confirm (Lab Use Only) Result Value Ref Range Group and Rh A Positive Potassium, Serum Result Value Ref Range Potassium 3.1 (L) 3.4 - 5.1 mmol/L Magnesium Result Value Ref Range Magnesium 2.0 1.6 - 2.6 mg/dL Creatinine eGFR Result Value Ref Range Creatinine 0.31 (L) 0.55 - 1.02 mg/dL Est GFR (CKD-EPI) >60.00 >60.00 mL/min/1.73m2 Electrocardiogram Result Value Ref Range EKG CBC (HGB,HCT,WBC,RBC,Platelet) Result Value Ref Range WBC 16.1 (H) 4.3 - 10.8 K/uL RBC 2.95 (L) 4.20 - 5.40 M/uL Hemoglobin 10.3 (L) 12.0 - 16.0 gm/dL Hematocrit 33.1 (L) 36.0 - 48.0 % MCV 112 (H) 80 - 100 fL MCH 35 (H) 27 - 33 pg MCHC 31 (L) 33 - 36 gm/dL RDW 15.4 (H) 11.5 - 14.5 % Platelet Count 347 150 - 400 K/UL MPV 8.7 6.5 - 12 fL IMAGING: No results found. EKG: Lab Results Component Value Date EKG 02/08/2025 Comment: [facility] Test Date: 2025-02-08 Pat Name: HANNAH LOO Department: A7 Room: A783 Gender: F 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1980 Requested By: YANY INGRAM MD Order Number: [id number] Reading MD: YANY INGRAM MD Measurements Intervals [place] Rate: 95 P: 74 NM: 140 QRS: 24 QRSD: 95 T: 60 QT: 339 QTc: 391 Interpretive Statements SINUS RHYTHM LOW QRS VOLTAGE IN PRECORDIAL LEADS [QRS DEFLECTION < 1.0 mV IN CHEST LEADS] SEPTAL MYOCARDIAL INFARCTION [40+ ms Q WAVE IN V1/V2], OF INDETERMINATE AGE ABNORMAL ECG No previous ECG available for comparison Additional Comments: I have reviewed the patient's new clinical lab results I have reviewed the patient's new imaging results. I have reviewed the patient's medications. I discussed the plan of care with the patient and RN, Plastics. ASSESSMENT: This is a 44 y.o. 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 The case was discussed with orthopedic surgery and vascular surgery at [facility], who recommended transfer to [facility] for hand specialist evaluation. Patient was started on vanc + zosyn prior to transfer. PLAN R Index Finger Wet gangrene w Osteomyelitis R Hand Cellulitis Possible Sepsis, POA, 2/2 above R Middle Finger Dry Gangrene L Middle Finger Dry Gangrene Buerger's disease WBC 15.5->16, CRP 8.2, lactate 0.8. Technically met sepsis criteria on admit w leukocytosis and tachycardia (101), though tachycardia could also be related to pain. HR since normalized. Right second digit with wet gangrene. Left second and fifth digit with necrosis. Transferred from outside hospital for hand/plastics specialist. Started on Vanco/Zosyn on admit. Reviewed w plastics, plan for skyla serge tomorrow but anticipate will need multiple procedures. -Plastics consult, apprec recs: -Plan for NPO after midnight tonight and debridement surgery tomorrow. -continue with vanco+ zosyn -ok to leave wound open to air/cover per pt preference per Plastics -NPO MN -Pain control-tylenol, oxycodone, dilaudid Tobacco dependence Pt reports that she is working on quitting. -NRT while here (ok per Plastics) -recommend complete cessation Anemia, microcytic Hgb 10.1, unknown baseline -continue to monitor Hypokalemia K 3.2, replace. -K/MG protocol ?CAD EKG w poss prev septal MO of indeterminate age. -outpt stress test CODE STATUS: Full Code DVT prophylaxis: none today, ambulatory, surgery tomorrow GI prophylaxis: pepcid ACCESS: PIV RESTRAINTS: none DISPOSITION: Anticipated date of discharge 1 week, Criteria for discharge is Plastics procedures, off IV abx. Family Communication: Family-dtr Hui at bedside updated on results and plan of care on 02/08/2025. Case discussed with Dr. Coelho. Wound: Skin Condition/Wound Non-Pressure Leathery;Flaky Right;Lower Foot (Active) First Observed/Origin Date/First Observed/Origin Time: 02/08/25 0118 Primary Wound Type: Skin Condition/Wound Non-Pressure Present on Original Admission: Yes Skin Condition Type: Leathery;Flaky Orientation: Right;Lower Location: Foot Wound: Skin Condition/Wound Non-Pressure Flaky;Leathery Lower;Left Foot (Active) First Observed/Origin Date/First Observed/Origin Time: 02/08/25 0000 Primary Wound Type: Skin Condition/Wound Non-Pressure Present on Original Admission: Yes Skin Condition Type: Flaky;Leathery Orientation: Lower;Left Location: Foot Wound: Skin Condition/Wound Non-Pressure Reddened (Non-Pressure Related) Left Hand (Active) First Observed/Origin Date/First Observed/Origin Time: 02/08/25 0000 Primary Wound Type: Skin Condition/Wound Non-Pressure Present on Original Admission: Yes Skin Condition Type: Reddened (Non-Pressure Related) Orientation: Left Location: Hand Wound: Skin Condition/Wound Non-Pressure Reddened (Non-Pressure Related) Right Hand (Active) First Observed/Origin Date/First Observed/Origin Time: 02/08/25 0000 Primary Wound Type: Skin Condition/Wound Non-Pressure Present on Original Admission: Yes Skin Condition Type: Reddened (Non-Pressure Related) Orientation: Right Location: Hand Wound: Skin Condition/Wound Non-Pressure Reddened (Non-Pressure Related) Right Hand (Active) First Observed/Origin Date/First Observed/Origin Time: 02/08/25 0000 Primary Wound Type: Skin Condition/Wound Non-Pressure Present on Original Admission: Yes Skin Condition Type: Reddened (Non-Pressure Related) Orientation: Right Location: Hand Carlene Rosen (previously [facility] Medicine Available through [employer] [facility] 8:00am-6:00pm * Paula Vegas RN - 02/08/2025 2:26 AM CDT Med-Surg Care Progression Note Type: Admission summary Length of stay: 1 days Code Status: Full Code Primary Problem: Right hand pain Summary: Pt alert make need known, Prn meds for pain and dressing to finger completed pics in chart. Pt is not having surgery this morning regular diet order pt inform. 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 F- Feeding & Fluids: Regular diet thin A- Analgesic & Anticoagulation: Analgesic PRN Dilaudid and Oxycodone Anticoagulation/DVT prevention & plan SCDs S- Skin: Regulo Subcategory Concern(s): Sensory Perception: (not recorded) Sensory Interventions: Appropriate support surface, Minimize hot/cold interventions, and Pain control Moisture: (not recorded) Moisture Interventions: Minimize briefs - no briefs with escalera Activity: (not recorded) Activity Interventions: Reposition every 2 hours, Low air loss mattress, and Safer bundle Nutrition: (not recorded) Nutrition Interventions: Calorie intake Mobility: (not recorded) Mobility Interventions: Turning every 2 hrs Friction and Shear: (not recorded) Friction and Shear Interventions: Limit head of bed <30 degrees Total Regulo Score: (not recorded): T- Telemetry: No tele E- Emotional & Neuro: Participating in cares Neuro Alert and Oriented R- Respiratory: On room air H- Head OUT of Bed & Activity: Activate Fall Alert? (Enter 1 or 0): (not recorded) Ambulating Early mobility Phases 1-4: Phase 4: Ambulation U- Urologic/bowel: No data recorded Voiding BR no void this shift Urine sample need hat placed in the toilet. G- Glycemic Control: Not applicable T- Treatment: Labs, and Plastic surgery Consults I- Invasive Devices: PIV x2 D- Discharge: TBD * Paula Vegas RN - 02/08/2025 2:25 AM CDT P. Admission A. Condition on Admit: alert. Patient/Family Concerns: Patient expressed concern about pain relief . I. Initial Interventions included: notified MD of patient arrival, administered medication for paindressing change completed.. Orientation to Unit: Patient oriented to how to call for help, name of assigned respite care provider, How to Call a Response Team, initial physician orders, hourly rounding procedures, belongings checklist. R. Patient expressed understanding of information.. documented in this encounter H&P Notes * Yany Ingram MD - 02/08/2025 1:54 AM CDT Images from the original note were not included. HOSPITALIST DIVISION ADMISSION HISTORY AND PHYSICAL Patient Name: Hannah Loo Address: No address on file. Age: 44 y.o. Sex: female Admission Date/Time: 02/08/2025 12:26 AM Primary Care Provider: No primary care provider on file. 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 The case was discussed with orthopedic surgery and vascular surgery at [facility], who recommended transfer to [facility] for hand specialist evaluation. Patient was started on vanc + zosyn prior to transfer. Principal Problem: Osteomyelitis (HCC) Active Problems: Buerger disease (HCC) Tobacco dependence Anemia PLAN: Wet gangrene Osteomyelitis Buerger's disease WBC 15.5, CRP 8.2, lactate 0.8. Pt does not meet sepsis criteria at this time. Right second digit with wet gangrene. Left second and fifth digit with necrosis. Transferred from outside hospital for hand/plastics specialist. -plastic surgery/hand consult placed for am -Discussed with yesy Hopson for diet, anticipate OR likely Monday. No need for additional imaging at this time. Continue with abx -continue with vanco+ zosyn -NPO -daily labs -PRN pain control -Pt medically optimized for surgery at this time. Tobacco dependence -recommend complete cessation Anemia, microcytic Hgb 10.1, unknown baseline -continue to monitor CODE STATUS: Full Code DVT prophylaxis: SCD GI prophylaxis: pepcid ACCESS: PIV 02/07/25 RESTRAINTS: NA ADDITIONAL COMMENTS: I reviewed the patient's new clinical lab test results. I reviewed the patient's medications. I reviewed the patient's new imaging test results. DISPOSITION/MEDICAL NECESSITY FOR HOSPITALIZATION: Anticipated date of discharge >2 days. Patient requires hospitalization for wet gangrene, osteomyelitis which has the following risk of morbidityand mortality: excess morbidity and possible mortality sepsis, limb loss, . Further, the acuity of this hospitalization is characterized as moderate and is reflected in the following presenting signs, symptoms, and objective work up: Labs, x-ray, outside records, patient examination. Unique tothis patient, the following elements of their past medical history -history of Buerger's disease with autoamputation now with increased necrosis and wet gangrene- increase the risk and complexity of managing this patient because need for IV antibiotics surgical consultation serial labs. This patient will require hospital services as outlined in the assessment and plan in order to stabilize and besafely discharged to a lower level of care. Because of the risk and acuity as described above, thispatient cannot be managed at a lower level of care. LENGTH OF STAY: IP - Anticipated LOS >2Midnights due to acuity of clinical presentation requiring inpatient level of care Time: 75 minutes Time spent reviewing chart, reviewing new labs, reviewing new available imaging, discussion with patient, patient examination, and documentation. Yany Ingram MD HPI: 44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 XR suspicious for osteomyelitis, no visible gas. The case was discussed with orthopedic surgery and vascular surgery at [facility], who recommended transfer to [facility] for hand specialist evaluation. Patient was treated with van + zosyn prior to transfer. Labs on arrival to outside hospital significant for WBC 13.8, Hgb 10.7, procal 17.6. lactate 0.8, BUN 12/Cr 0.3, K 2.7. Repeat labs with K 3.5, wbc 15.5 . Outside Xray indicates patchy osseous lucency of the 2nd and 3rd digits of the right hand concerning for possible osteomyelitis. On arrival to [facility] afebrile, vitally stable. Wbc 15.5, CRP 8.2. lactate 0.8. BUN 8/Cr 0.28. Patient with foul smelling, wet gangrene of the right second digit. Foul-smelling. Also with marked necrosisof the 2nd and 5th digit of the left hand. Denies recent fevers. Complains of chronic pain of the hands. No additional complaints at this time. Patient does endorse ongoing tobacco dependence however is trying to quit she is down to approximately 5 cigarettes daily. Denies any alcohol or additional substance use disorder. Patient is not on blood thinners. PAST MEDICAL HISTORY: No past medical history on file. PAST SURGICAL HISTORY: No past surgical history on file. PRIOR TO ADMISSION MEDICATIONS: None ALLERGIES: Patient has no known allergies. FAMILY HISTORY: No family history on file. SOCIAL HISTORY: Social History Socioeconomic History Marital status: Not on file Spouse name: Not on file Number of children: Not on file Years of education: Not on file Highest education level: Not on file Occupational History Not on file Tobacco Use Smoking status: Every Day Types: Cigarettes, Cigars Smokeless tobacco: Not on file Substance and Sexual Activity Alcohol use: Not on file Drug use: Not on file Sexual activity: Not on file Other Topics Concern Not on file Social History Narrative Not on file Social Drivers of Health Food Insecurity: No Food Insecurity (02/08/2025) Hunger Vital Sign Worried About Running Out of Food in the Last Year: Never true Ran Out of Food in the Last Year: Never true Transportation Needs: No Transportation Needs (02/08/2025) PRAPARE - Transportation Lack of Transportation (Medical): No Lack of Transportation (Non-Medical): No Intimate Partner Violence: Not At Risk (02/08/2025) Humiliation, Afraid, Rape, and Kick questionnaire Fear of Current or Ex-Partner: No Emotionally Abused: No Physically Abused: No Sexually Abused: No Housing Stability: Low Risk (02/08/2025) Housing Stability Vital Sign Unable to Pay for Housing in the Last Year: No Number of Times Moved in the Last Year: 0 Homeless in the Last Year: No REVIEW OF SYSTEMS: A comprehensive review of systems was negative except for items noted in the HPI/Subjective: Otherwise a comprehensive ROS is negative. PHYSICAL EXAM: Vitals: 02/08/25 0030 02/08/25 0104 02/08/25 0427 BP: (!) 129/95 133/80 Pulse: (!) 101 99 Resp: 16 16 Temp: 98.8 ??F (37.1 ??C) 98.9 ??F (37.2 ??C) SpO2: 95% 97% Weight: 53.6 kg (118 lb 2.7 oz) Height: 5' 1 (1.549 m) O2 Delivery Source: Room Air Temp (24hrs), Av.9 ??F (37.2 ??C), Min:98.8 ??F (37.1 ??C), Max:98.9 ??F (37.2 ??C) Wt Readings from Last 2 Encounters: 02/08/25 53.6 kg (118 lb 2.7 oz) Body mass index is 22.33 kg/m??. General Appearance: patient is pleasant, alert and appropriate, no apparent distress. HEENT: Normocephalic, atraumatic. Mucus membranes are moist. NECK: supple CHEST: Lung sounds are clear to auscultation bilaterally, no crackles or wheezes CARDIO: RRR, no obvious murmurs. S1S2 ABD: Soft, non-tender, non-distended : deferred EXT: +2 radial pulse bilaterally Autoamputation of multiple digits Fould smelling right second digit with erythema and edema, necrotic Necrotic left third and fifth digits NEURO: CN appear grossly intact symmetric. Patient moves all extremities. DTR deferred. Gait not accessed. PSYCH: Pleasant, mentation at baseline PROCEDURES: None IMAGING: XR OUTSIDE UPPER EXTREMITY STUDY Final Result LABS: Results for orders placed or performed during the hospital encounter of 02/08/25 (from the past 24 hours) CBC / Diff Result Value Ref Range WBC 15.5 (H) 4.3 - 10.8 K/uL RBC 2.88 (L) 4.20 - 5.40 M/uL Hemoglobin 10.1 (L) 12.0 - 16.0 gm/dL Hematocrit 32.6 (L) 36.0 - 48.0 % MCV 113 (H) 80 - 100 fL MCH 35 (H) 27 - 33 pg MCHC 31 (L) 33 - 36 gm/dL RDW 15.3 (H) 11.5 - 14.5 % Platelet Count 370 150 - 400 K/UL MPV 8.9 6.5 - 12 fL PMN % 86.5 % IG % 0.8 <=1.0 % Lymphocyte % 7.8 % Monocyte % 4.1 % Eosinophil % 0.5 % Basophil % 0.3 % PMN Absolute 13.42 (H) 1.80 - 7.80 K/uL Lymphocyte Absolute 1.21 1.00 - 4.00 K/uL Monocyte Absolute 0.64 0.00 - 1.00 K/uL Eosinophil Absolute 0.08 0.00 - 0.45 K/uL Basophil Absolute 0.04 0.00 - 0.20 K/uL Nucl RBC % 0.0 0.0 - 0.0 /100 WBC Nucl RBC Absolute 0.00 0.00 - 0.00 K/uL Basic Metabolic Profile Result Value Ref Range Sodium 139 136 - 145 mmol/L Potassium 3.5 3.4 - 5.1 mmol/L Chloride 107 98 - 108 mmol/L Carbon Dioxide 28 20 - 31 mmol/L BUN (Urea Nitro) 8 (L) 9 - 23 mg/dL Creatinine 0.28 (L) 0.55 - 1.02 mg/dL Est GFR (CKD-EPI) >60.00 >60.00 mL/min/1.73m2 Glucose 77 74 - 106 mg/dL Calcium, Serum 8.0 (L) 8.7 - 10.4 mg/dL Anion Gap 4.0 0.0 - 15.0 mmol/L C-Reactive Protein Result Value Ref Range C Reactive Protein 8.2 (H) <=0.5 mg/dL Type and Screen Result Value Ref Range Group and Rh A Positive Antibody Screen Negative Lactic Acid Result Value Ref Range Lactic Acid 0.8 0.7 - 2.1 mmol/L Electrocardiogram Result Value Ref Range EKG EKG: pending documented in this encounter Consult Notes * Hannah Martinez, PT - 02/16/2025 1:01 PM CDT Acute Physical Therapy Treatment Patient Name: Hannah Loo Today's Date: 02/16/2025 Admission Date: 02/08/2025 Precautions Precautions Precautions: Isolation Isolation Type: Contact Precautions Comments: MRSA Assessment PT Assessment/Recommendations Assessment: Pt seen for re-evaluation and request for BLE home exercise program handouts. Pt declining out of bed mobility due to fatigue after procedure this morning. Pt requesting to verbally review handouts. Reviewed supine, seated, and standing HEP handouts with pt and family present in room. Answered questions within scope of practice. Pt and family in room reporting no further mobility concerns and ok for PT to sign off. Please reconsult if there is a change in functional mobility status. Strengths: Age, Prior level of function, Good family support Limitations/Discharge Barriers: Current medical status, Pain Endurance: Participates 10-20 min of therapy session Prognosis: Good Recommendations for Nursing: Up independently Discharge Support Recommendations: Is safe to discharge to previous living situation with prior level of assist/support Post Acute Therapy Needs: No PT needs Appropriate for Acute Inpatient Rehab?: No Not appropriate due to: Minimal skilled physical therapy needs Equipment Recommended for Discharge: None Equipment Issued: None Plan PT Frequency: No further acute PT needed Encounter Details General Diagnosis: Osteomyelitis Admission/Diagnosis Details: Transferred from [facility] with wet gangrene of R hand with suspicion for osteomyelitis. 02/09 R hand irrigation and debridement, amputation of R index finger. 02/11 I&D of R hand. Pertinent Past Medical History: Newby's disease, tobacco use disorder, spontaneous amputation of multiple digits Patient Seen In: Room Subjective Comments: Pt agreeable to PT Lines and Tubes: IV Subjective/Social History Home Setup Type of Home: House Lives With: Significant Other, Mother, Father Home Layout: Two level Home Entry: Ramp Stairs within Home: Stairs with rails Rails: Unilateral Number of stairs: 15 Prior Level of Functional Mobility Independent with: All Mobility, ADLs, IADLs Mobility Equipment Used: None DME owned: Rolling walker, Grab bars, Shower chair, Motorized scooter History of falls: No Pain Patient denied pain Objective Cognitive Status Orientation Level: Oriented X4 Therapeutic Activity Bed Mobility Bed Mobility Bed Mobility Comments: declined attempt today d/t fatigue Miscellaneous Therapeutic Activity Therapeutic Activity: Activity 1 Activity 1: Pt declining OOB mobility though requested re-evaluation to get home exercise program. Pt unwilling to perform though requested handbook writer to go over exercises with her and pt family in room.Reviewed supine, seated, and standing HEP with recommendations of sets/ reps. Encouraged outpatientPT follow up if pt needs more specialized program. [facility] AM-[facility]-Clicks Turning over in bed (including adjusting bed clothes, sheets, and blankets): Modified independent/independent Sitting down and standing up from a chair with arms: Modified independent/independent Moving from lying on back to sitting on the side of bed: Modified independent/independent Moving to and from a bed to a chair: Modified independent/independent Walk in hospital room?: Modified independent/independent Climbing 3-5 steps with a railing: Minimum/contact guard/standby assist AM-PAC 6 Clicks: Mobility Total Score: 23 The following scores are predictive of discharge disposition during acute hospitalization: Home= 20or greater; Home with Home Health=18; Continued skilled care at appropriate facility= 14 or less. Education/Safety Education Provided Patient Education: Role of PT, Safety with mobility, Plan of care, Risk of falls, Discharge recommendations Family Education: Family not present Safety Interventions Fall Risk?: No Safety Interventions/Patient Disposition: Standard interventions, Notified nursing staff GOALS-The interventions during this session were provided to address the goals set forth on evaluation and are ongoing unless otherwise indicated. Time Frame Goals target date: 02/16/25 TIME SPENT WITH PATIENT PT Timed Code Treatment Minutes (outside of evaluation) PT Therapeutic Activity: 8 PT Timed Code Treatment Minutes PT Total Billable Minutes: 11 Minutes * Chava Erickson MD - 02/15/2025 1:59 PM CDT CONSULTATION NOTE - GASTROENTEROLOGY Patient Name: Hannah Loo Address: [address] [place], [place] [id number] Age:45 y.o. Sex: female Admission Date/Time: 02/08/2025 12:26 AM Requesting Physician: Raheel [facility] Attending Physician: Michelle Pickering MD I was asked to see this patient at the request of Dr. Pickering for evaluation of weight loss, vomiting and abd pain. HPI: 44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XR suspicious for osteomyelitis, no visible gas. The case was discussed with orthopedic surgery andvascular surgery at [facility], who recommended transfer to [facility] for hand specialist evaluation. Patient was treated with vanco and zosyn prior to transfer. She continues to smoke but is trying to stop. She reports that over the past 3-4 months she has had mid abd pain, n/v and weight loss of 20 pounds. She can go several days feeling well, eating, no pain, etc but then has these episodes. She doesn't think anything in particular triggers these episodes. She does not take NSAIDS. No GI family history. Of note she was hospitalized in [place] recently and EGD was attempted but she reports that the scope couldn't pass through the esophagus. Currently no abd pain. Vomited this morning. REVIEW OF SYSTEMS As in the HPI PAST MEDICAL HISTORY Past Medical History: Diagnosis Date MRSA (methicillin resistant Staphylococcus aureus) 02/09/2025 R hand; 02/11/25 R finger; 02/14/25 nares PAST SURGICAL HISTORY No past surgical history on file. CURRENT MEDS Current Facility-Administered Medications: saline FLUSH syringe 10 mL, 10 mL, Intravenous, Q8H, Yany Ingram MD, 10 mL at 02/15/25 0705 saline FLUSH syringe 10 mL, 10 mL, Intravenous, PRN, Yany Ingram MD, 10 mL at 02/15/25 0922 acetaminophen (TYLENOL) tablet 1,000 mg, 1,000 mg, oral, QID, Carlene Rosen PA-C, 1,000 mgat 02/14/25 2220 D50W IV syringe 25-50 mL, 25-50 mL, Intravenous, PRN, Molly Epps PA-C, 25 mL at 02/14/25 2041 dextrose 5% in water-lactated ringers IV infusion, , Intravenous, CONTINUOUS, Danielle Carrero DO, Last Rate: 125 mL/hr at 02/15/25 1245, New Bag at 02/15/25 1245 famotidine (PEPCID) injection 20 mg, 20 mg, Intravenous, Twice Daily, Yany Ingram MD, 20 mg at 02/15/25 0802 gabapentin (NEURONTIN) capsule 300 mg, 300 mg, oral, TID, Henna Paniagua APRN, ANDROID DEVELOPER, 300 mg at 02/14/25 2220 glucagon, human recombinant (Glucagen) injection (conc: 1 mg/mL) 1 mg, 1 mg, IntraMUSCULAR, Q 15 MINS PRN, Molly Epps PA-C guaiFENesin (ROBITUSSIN) syrup 100 mg, 100 mg, oral, Q4H PRN, Danielle Carrero DO, 100 mg at 02/14/25 0417 HYDROmorphone (Dilaudid) syringe 0.5-1 mg, 0.5-1 mg, Intravenous, Q4H PRN, Henna Paniagua APRN, ANDROID DEVELOPER, 0.5 mg at 02/15/25 1150 HYDROmorphone (DILAUDID) tablet 2-4 mg, 2-4 mg, oral, Q4H PRN, Henna Paniagua APRN, ANDROID DEVELOPER, 4 mg at 02/15/25 0046 hydrOXYzine pamoate (Vistaril) capsule 25-50 mg, 25-50 mg, oral, Q6H PRN, Carlene Rosen PA-C, 50 mg at 02/14/25 1618 lidocaine (LMX-4) topical cream 1 Application, 1 Application, topical, PRN, Yany Ingram MD lidocaine 1% injection (conc: 10 mg/mL) 0.1-0.3 mL, 0.1-0.3 mL, Intradermal, PRN, Yany Ingram MD MAGNESIUM REPLACEMENT INTRAVENOUS - NOT FOR DOCUMENTATION PURPOSES, , Intravenous, PER PROTOCOL, Yany Ingram MD methocarbamoL (ROBAXIN) tablet 500-1,000 mg, 500-1,000 mg, oral, QID, Molly Epps PA-C, 500mg at 02/14/25 2220 metoclopramide HCl (Reglan) injection 10 mg, 10 mg, Intravenous, Q6H PRN, Molly Epps PA-C,10 mg at 02/15/25 1144 [Held by provider] metroNIDAZOLE (FLAGYL) tablet 500 mg, 500 mg, oral, Q8H, Loly Castaneda PA-C,500 mg at 02/13/25 211 nicotine (NICOTROL) 7 mg/24 hr patch 7 mg, 1 patch, Transdermal, DAILY, Carlene Rosen PA-C, 7 mg at 02/14/25 0846 ondansetron (Zofran) injection 4-8 mg, 4-8 mg, Intravenous, Q8H PRN, 4 mg at 02/15/25 0801 OR ondansetron (Zofran) disintegrating tablet 4-8 mg, 4-8 mg, oral, Q8H PRN, Carlene Rosen PA-C, 4 mg at 02/15/25 0109 pantoprazole (Protonix) delayed release tablet 40 mg, 40 mg, oral, Twice Daily, Taylor Gutierrez MD, 40 mg at 02/14/25 1957 piperacillin-tazobactam (ZOSYN) 3.375 g in sodium chloride 0.9 % 100 mL IV piggyback, 3.375 g, Intravenous, Q8H (NS), Danielle Carrero, DO, Stopped at 02/15/25 1047 potassium chloride 10 mEq IV piggyback in 100 mL, 10 mEq, Intravenous, Q1H, Molly Epps PA-C, Last Rate: 100 mL/hr at 02/15/25 1351, 10 mEq at 02/15/25 1351 POTASSIUM REPLACEMENT INTRAVENOUS - NOT FOR DOCUMENTATION PURPOSES, , Intravenous, PER PROTOCOL, Yany Ingram MD POTASSIUM REPLACEMENT ORAL - NOT FOR DOCUMENTATION PURPOSES, , oral, PER PROTOCOL, Yany Ingram MD prochlorperazine (COMPAZINE) injection 5-10 mg, 5-10 mg, Intravenous, Q6H PRN, Lanie Sotelo, PRASANNA,STOVE INSTALLER, 10 mg at 02/15/25 0920 saline with benzyl alcohol injection 0.1-0.3 mL, 0.1-0.3 mL, Intradermal, PRN, Yany Ingram MD [Held by provider] sulfamethoxazole 800 mg-trimethoprim 160 mg (BACTRIM DS;SEPTRA DS) tablet 160 mg, 1 tablet, oral, Twice Daily, Loly Castaneda PA- C, 160 mg at 02/13/25 1809 vancomycin (VANCOCIN) 1,000 mg in sodium chloride 0.9 % 250 mL IV piggyback, 20 mg/kg, Intravenous,Q12H (NS), Keila Beckman, Pharm D, Last Rate: 250 mL/hr at 02/15/25 1349, 1,000 mg at 02/15/25 1349 Vancomycin Pharmacy Consult, 1 Consult, N/A, MATT, Danielle Carrero DO ALLERGIES/SENSITIVITIES No Known Allergies FAMILY HISTORY No family history on file. SOCIAL HISTORY Social History Socioeconomic History Marital status: Spouse name: Not on file Number of children: Not on file Years of education: Not on file Highest education level: Not on file Occupational History Not on file Tobacco Use Smoking status: Every Day Types: Cigarettes, Cigars Smokeless tobacco: Not on file Substance and Sexual Activity Alcohol use: Not on file Drug use: Not on file Sexual activity: Not on file Other Topics Concern Not on file Social History Narrative Not on file Social Drivers of Health Food Insecurity: No Food Insecurity (02/08/2025) Hunger Vital Sign Worried About Running Out of Food in the Last Year: Never true Ran Out of Food in the Last Year: Never true Transportation Needs: No Transportation Needs (02/08/2025) PRAPARE - Transportation Lack of Transportation (Medical): No Lack of Transportation (Non-Medical): No Intimate Partner Violence: Not At Risk (02/08/2025) Humiliation, Afraid, Rape, and Kick questionnaire Fear of Current or Ex-Partner: No Emotionally Abused: No Physically Abused: No Sexually Abused: No Housing Stability: Low Risk (02/08/2025) Housing Stability Vital Sign Unable to Pay for Housing in the Last Year: No Number of Times Moved in the Last Year: 0 Homeless in the Last Year: No PHYSICAL EXAM General: NAD. HENT: Normocephalic, atraumatic. Neck: Full ROM. Chest/Cardiovascular: Regular rate, regular rhythm. No audible murmurs. Pulmonary: No increased work of breathing. Speaking in full sentences. No wheezes, rhonchi, or rales. Abdomen: Soft. No tenderness or rebound. No distention. Extremities: Normal ROM of all four extremities. No obvious deformities. No LE edema or calf pain. Skin: No visible rashes on exposed skin. No pallor or jaundice. Neuro: Awake and answering questions appropriately. Results for orders placed or performed during the hospital encounter of 02/08/25 (from the past 24 hours) POCT Glucose Meter Result Value Ref Range GLUCOSE WB METER 57 (L) 60 - 100 mg/dL Magnesium Result Value Ref Range Magnesium 2.0 1.6 - 2.6 mg/dL POCT Glucose Meter Result Value Ref Range GLUCOSE WB METER 133 (H) 60 - 100 mg/dL POCT Glucose Meter Result Value Ref Range GLUCOSE WB METER 61 60 - 100 mg/dL POCT Glucose Meter Result Value Ref Range GLUCOSE WB METER 81 60 - 100 mg/dL CBC (HGB,HCT,WBC,RBC,Platelet) Result Value Ref Range WBC 7.4 4.3 - 10.8 K/uL RBC 2.22 (L) 4.20 - 5.40 M/uL Hemoglobin 7.6 (L) 12.0 - 16.0 gm/dL Hematocrit 24.7 (L) 36.0 - 48.0 % MCV 111 (H) 80 - 100 fL MCH 34 (H) 27 - 33 pg MCHC 31 (L) 33 - 36 gm/dL RDW 14.8 (H) 11.5 - 14.5 % Platelet Count 236 150 - 400 K/UL MPV 9.4 6.5 - 12 fL Basic Metabolic Profile Magnesium Result Value Ref Range Sodium 141 136 - 145 mmol/L Potassium 2.9 (LL) 3.4 - 5.1 mmol/L Chloride 107 98 - 108 mmol/L Carbon Dioxide 29 20 - 31 mmol/L BUN (Urea Nitro) <5 (L) 9 - 23 mg/dL Creatinine 0.52 (L) 0.55 - 1.02 mg/dL Est GFR (CKD-EPI) >60.00 >60.00 mL/min/1.73m2 Glucose 76 74 - 106 mg/dL Calcium, Serum 7.5 (L) 8.7 - 10.4 mg/dL Anion Gap 5.0 0.0 - 15.0 mmol/L Magnesium 1.8 1.6 - 2.6 mg/dL Vancomycin - Random Result Value Ref Range Vancomycin Random 22.1 11.0 - 45.0 ug/mL Liver Profile Result Value Ref Range ALT 16 7 - 40 U/L Alkaline Phosphatase 528 (H) 46 - 116 U/L AST (SGOT) 11 (L) 13 - 40 U/L Protein Total 4.8 (L) 5.7 - 8.2 g/dL Albumin 1.5 (L) 3.4 - 5.0 g/dL Bilirubin-Direct <0.10 <0.40 mg/dL Bilirubin-Total 0.20 (L) 0.30 - 1.20 mg/dL POCT Glucose Meter Result Value Ref Range GLUCOSE WB METER 77 60 - 100 mg/dL EGD December 2024 ([facility] [facility]) - procedure aborted at 15cm, esophageal stenosis suspected CT abd/pelvis December 2024 ([place] [facility]) - no acute abnormalities Abdominal pain Vomiting Weight loss Assessment: 44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 XR suspicious for osteomyelitis, no visible gas. Patient was treated with vanco and zosyn. She continues to smoke but is trying to stop. She reports that over the past 3-4 months she has had mid abd pain, n/v and weight loss of [address] was unremarkable and EGD was incomplete. The differential is broad including GERD, esophageal stricture, schatzki ring, EoE, gastroparesis, PUD, gastritis, duodenitis and malignancy. The CT is reassuring but will proceed with EGD tomorrow. Given her anemia I recommended colonoscopy at the sametime but she adamantly refuses that procedure. Plan: - monitor stools and Hgb - transfuse prn - NPO at midnight - EGD with esophageal bx tomorrow - avoid NSAIDS - colonoscopy recommended, pt declines D/w Dr. Jamilah Davis, PA-C ADDENDUM TO [facility] CONSULT SERVICE NOTE I, Chava Erickson MD have personally seen and examined this patient. I have reviewed the chart and agree with the above note by SAMREEN Rodrigues. Total time spent reviewing the chart, collaborating with the care team and evaluating/educating thepatient: 20 minutes. Briefly, Hannah is a pleasant 44-year-old female with Newby's disease with ongoing tobacco use who has had 3 to 4-month history of abdominal pain over the epigastrium, nausea/vomiting, and unintentional weight loss of 20 pounds. EGD roughly 1 month ago at outside hospital was was unsuccessful as the scope was not able to be passed beyond 15 cm from the incisors. CT scan is unremarkable. I agreewith the above differential diagnosis including peptic ulcer disease, severe erosive esophagitis, esophageal stricture, Schatzki ring, esophageal web, gastroparesis, etc. Malignancy is not ruled out.We did recommend colonoscopy for further evaluation of anemia though patient declined. Chava Erickson MD * Carrington Erickson (February), Pharm D - 02/14/2025 12:39 PM CDT Pharmacy Kinetics Consult Hannah Loo, 02/14/2025, Time: 12:39 PM SUBJECTIVE Hannah Loo is a 44 y.o. female who was admitted on 02/08/2025. Pharmacy was consulted by Dr. Carrero to dose and monitor Vancomycin for HAP. OBJECTIVE Antibiotic Allergies: NKDA Current/Recent Antibiotics: Zosyn (02/07 - p) 1st doses at OSH Bactrim DS 1 tab po bid x 1 dose (02/13) Metronidazole 500mg po q8h x 2 doses (02/13) Cultures and Sensitivities: 02/14 sputum: pending 02/14 blood x 2: pending 02/14 admit MRSA: +ve 02/11 wound cx: MRSA, E coli 02/11 wound: no anaerobic growth x 2 days 02/09 wound: MRSA, E coli, group C beta hemolytic 02/09 wound: MRSA, E coli 02/09 wound x 2: mixed duane with no predominant anaerobe Vitals: Temp (24hrs), Av.2 ??F, Min:97.8 ??F, Max:98.5 ??F Height: 154.9 cm (5' 1) Weight: 53.6 kg (118 lb 2.7 oz) [place] body weight: 47.8 kg (105 lb 6.1 oz) Adjusted ideal body weight: 50.1 kg (110 lb 7.9 oz) Labs: Recent Labs 02/14/25 0643 WBC 13.1* CREATININE 0.65 Date Day Scr CrCL Dose/Freq Time Level Comments 02/07 1 1000 mg IV 2048* Given at OSH 02/08 2 0.28 >100 1000 mg q12h 08, 20 02/09 3 0.50 >100 1000 mg q12h , AUC 552 02/10 4 0.82 65 1000 mg q12h 08 02/11 5 0.84 63 1250 mg q24h 06 02/12 6 0.78 68 1250 mg q24h 06 02/13 7 0.80 66 1250 mg q24h 06 D/cd and restarted 02/14 8 0.65 81 1250 mg q24h 06 02/15 9 1000 mg q18h (00) ASSESSMENT/PLAN 44 yo female admitted for osteomyelitis. She received first doses of antibiotics prior to transfer from OSH. Scr trending down to 0.78 today. Underwent debridement of right hand with partial resection of 2nd metacarpal on 02/11. My need more resection depending on clinical exam. Blood cultures now growing MRSA. Continue maintenance regimen of 1250mg IV q24h at this time.02/13/25: Vancomycin restarted tonight for hospital acquired pneumonia. Dose: due to improved renal function, will change vancomycin to 1000 mg iv q18h Estimated: AUC 24,ss: 480 mg/L.hr Ctrough,ss: 11.2 mg/L Probability of AUC>400: 91% Probability of Ctrough>20: 0% Probability of nephrotoxicity: 7% Vancomycin goal: AUC 400-600mg*hr/L Next vancomycin level due: TBD Antibiotic time-out to be completed: 02/15 Discharge Recommendation: N/A Eleanor Mckinley, Pharm D Pharmacy will continue to follow. Please call with questions. Phone #: [phone] * Luis Guzman, Pharm D - 02/13/2025 11:43 PM CDT Pharmacy Kinetics Consult Hannah Loo, 02/13/2025, Time: 11:43 PM SUBJECTIVE Hannah Loo is a 44 y.o. female who was admitted on 02/08/2025. Pharmacy was consulted by Dr. Carrero to dose and monitor Vancomycin for HAP. OBJECTIVE Antibiotic Allergies: NKDA Current/Recent Antibiotics: Zosyn (02/07 - p) 1st doses at OSH Cultures and Sensitivities: 02/09 blood x2: MRSA, E coli 02/11 wound cx: NG Vitals: Temp (24hrs), Av.2 ??F, Min:98 ??F, Max:98.4 ??F Height: 154.9 cm (5' 1) Weight: 53.6 kg (118 lb 2.7 oz) [place] body weight: 47.8 kg (105 lb 6.1 oz) Adjusted ideal body weight: 50.1 kg (110 lb 7.9 oz) Labs: Recent Labs 02/11/25 0714 02/11/25 1015 02/13/25 0703 WBC 9.0 < > 12.7* CREATININE -- < > 0.80 PROCALCITON 4.22* -- -- < > = values in this interval not displayed. Date Day Scr CrCL Dose/Freq Time Level Comments 02/07 1 1000 mg IV 2048* Given at OSH 02/08 2 0.28 >100 1000 mg q12h , 20 02/09 3 0.50 >100 1000 mg q12h 08, 20 AUC 552 02/10 4 0.82 65 1000 mg q12h 08 02/11 5 0.84 63 1250 mg q24h 06 02/12 6 0.78 68 1250 mg q24h 06 02/13 7 0.80 66 1250 mg q24h 06 ASSESSMENT/PLAN 44 yo female admitted for osteomyelitis. She received first doses of antibiotics prior to transfer from OSH. Scr trending down to 0.78 today. Underwent debridement of right hand with partial resection of 2nd metacarpal on 02/11. My need more resection depending on clinical exam. Blood cultures now growing MRSA. Continue maintenance regimen of 1250mg IV q24h at this time. This regimen is predicted to achieve an AUC of 556 mg*h/L (PAUC 100%, PTOX 8%). 02/13/25: Vancomycin restarted tonight for hospital acquired pneumonia. Dose: Vancomycin 1250 mg IV every 24 hours Vancomycin goal: AUC 400-600mg*hr/L Next vancomycin level due: TBD Antibiotic time-out to be completed 02/10/25, pending surgical plan and cx sensitivities Discharge Recommendation: N/A Luis Guzman, Pharm D Pharmacy will continue to follow. Please call with questions. Phone #: [phone] * Carrington Erickson (February), Pharm D - 02/13/2025 12:40 PM CDT Pharmacy Kinetics Consult Hannah Loo, 02/13/2025, Time: 12:40 PM SUBJECTIVE Hannah Loo is a 44 y.o. female who was admitted on 02/08/2025. Pharmacy was consulted by Dr. Ingram to dose and monitor Vancomycin for osteomyelitis. OBJECTIVE Antibiotic Allergies: NKDA Current/Recent Antibiotics: Zosyn (02/07 - p) 1st doses at OSH Cultures and Sensitivities: 02/09 blood x2: MRSA, E coli 02/11 wound cx: NG Vitals: Temp (24hrs), Av.1 ??F, Min:97.9 ??F, Max:98.4 ??F Height: 154.9 cm (5' 1) Weight: 53.6 kg (118 lb 2.7 oz) [place] body weight: 47.8 kg (105 lb 6.1 oz) Adjusted ideal body weight: 50.1 kg (110 lb 7.9 oz) Labs: Recent Labs 02/11/25 0714 02/11/25 1015 02/13/25 0703 WBC 9.0 < > 12.7* CREATININE -- < > 0.80 PROCALCITON 4.22* -- -- < > = values in this interval not displayed. Date Day Scr CrCL Dose/Freq Time Level Comments 02/07 1 1000 mg IV 2048* Given at OSH 02/08 2 0.28 >100 1000 mg q12h , 20 02/09 3 0.50 >100 1000 mg q12h , AUC 552 02/10 4 0.82 65 1000 mg q12h 08 02/11 5 0.84 63 1250 mg q24h 06 02/12 6 0.78 68 1250 mg q24h 06 02/13 7 0.80 66 1250 mg q24h 06 ASSESSMENT/PLAN 44 yo female admitted for osteomyelitis. She received first doses of antibiotics prior to transfer from OSH. Scr trending down to 0.78 today. Underwent debridement of right hand with partial resection of 2nd metacarpal on 02/11. My need more resection depending on clinical exam. Blood cultures now growing MRSA. Continue maintenance regimen of 1250mg IV q24h at this time. This regimen is predicted to achieve an AUC of 556 mg*h/L (PAUC 100%, PTOX 8%). Dose: Vancomycin 1250 mg IV every 24 hours Vancomycin goal: AUC 400-600mg*hr/L Next vancomycin level due: TBD Antibiotic time-out to be completed 02/10/25, pending surgical plan and cx sensitivities Discharge Recommendation: N/A Eleanor Mckinley PharmD Pharmacy will continue to follow. Please call with questions. Phone #: [phone] * Conrad Lucio MD - 02/12/2025 12:21 PM CDTAssociated Order(s): CONSULT INFECTIOUS DISEASE INFECTIOUS DISEASE CONSULTATION NOTE 02/12/2025 Patient Name: Hannah Loo Age:45 y.o. Sex: female Admission Date/Time: 02/08/2025 12:26 AM Hospital Attending Physician: Michelle Pickering MD Primary Care Provider: No primary care provider on file. CONSULTATION ASSESSMENT Wet gangrene, and osteomyelitis of Rt index finger, s/p amputation at MCP joint (02/09, 02/11). Intraop cx on 02/09 with MRSA, E.coli and mixed anaerobes. she had the second metacarpal amputated on 02/11, and cx with S.aureus, GNB Buerger's disease, smoker PLAN/RECOMMENDATIONS: Continue empiric Iv Vancomycin and zosyn Per OR note on 02/11, this intra op cx was obtained from proximal end of metacarpal and likely stillosteomyelitis present. Further debrided or not likely deteremine the duration of abx therapy. Conrad Lucio MD Infectious diseases Reason for consult : wet gangrene on finger Requesting physician: Michelle Womack MD HPI: 45 yo F with h/o Buerger's disease, smoker is transferred from [facility] for right index finger gangrene and osteomyelitis. Underwent finger amputation, and intra op culture grew MRSA and e.coli. She c/o pain on the surgery site today. REVIEW OF SYSTEMS A comprehensive review of systems was negative except for items noted in the HPI/Subjective. PAST MEDICAL HISTORY No past medical history on file. PAST SURGICAL HISTORY No past surgical history on file. CURRENT MEDS Current Facility-Administered Medications Medication Dose Route Frequency Provider Last Rate Last Admin saline FLUSH syringe 10 mL 10 mL Intravenous Q8H Yany Ingram MD 10 mL at 02/12/25 0619 saline FLUSH syringe 10 mL 10 mL Intravenous PRN Yany Ingram MD 10 mL at 02/09/25 0534 acetaminophen (TYLENOL) tablet 1,000 mg 1,000 mg oral QID Carlene Rosen PA-C 1,000 mg at 02/12/25 1141 famotidine (PEPCID) injection 20 mg 20 mg Intravenous Twice Daily Yany Ingram MD 20 mg at02/12/25 0742 gabapentin (NEURONTIN) capsule 200 mg 200 mg oral TID Lanie Sotelo, DNP,[employer] 200 mg at 742 HYDROmorphone (Dilaudid) syringe 0.5-1 mg 0.5-1 mg Intravenous Q2H PRN Yany Ingram MD 1 mg at 02/12/25 0527 hydrOXYzine pamoate (Vistaril) capsule 25-50 mg 25-50 mg oral Q6H PRN Carlene Rosen PA-C 25 mg at 02/12/25 1141 lidocaine (LMX-4) topical cream 1 Application 1 Application topical PRN Yany Ingram MD lidocaine 1% injection (conc: 10 mg/mL) 0.1-0.3 mL 0.1-0.3 mL Intradermal PRN Yany Ingram MD MAGNESIUM REPLACEMENT INTRAVENOUS - NOT FOR DOCUMENTATION PURPOSES Intravenous PER PROTOCOL Yany Ingram MD methocarbamoL (ROBAXIN) tablet 250-500 mg 250-500 mg oral Q6H PRN Carlene Rosen PA-C 250 mg at 02/12/25 0742 nicotine (NICOTROL) 7 mg/24 hr patch 7 mg 1 patch Transdermal DAILY Carlene Rosen PA-C 7 mg at 02/12/25 0741 ondansetron (Zofran) injection 4-8 mg 4-8 mg Intravenous Q8H PRN Carlene Rosen PA-C 8 mg at 02/09/25 2205 Or ondansetron (Zofran) disintegrating tablet 4-8 mg 4-8 mg oral Q8H PRN Carlene Rosen PA-C 8mg at 02/12/25 1141 oxyCODONE (immediate release) (ROXICODONE) tablet 5-10 mg 5-10 mg oral Q4H PRN Yany Ingram MD 10 mg at 02/12/25 1141 pantoprazole (Protonix) delayed release tablet 40 mg 40 mg oral Twice Daily Taylor Gutierrez MD 40 mg at 02/12/25 0743 piperacillin-tazobactam (ZOSYN) 3.375 g in sodium chloride 0.9 % 100 mL IV piggyback 3.375 g Intravenous Q8H (NS) Yany Ingram MD 25 mL/hr at 02/12/25 1034 3.375 g at 02/12/25 1034 polyethylene glycol (MIRALAX) packet 17 g 17 g oral DAILY Carlene Rosen PA-C POTASSIUM REPLACEMENT INTRAVENOUS - NOT FOR DOCUMENTATION PURPOSES Intravenous PER PROTOCOL Yany Ingram MD POTASSIUM REPLACEMENT ORAL - NOT FOR DOCUMENTATION PURPOSES oral PER PROTOCOL Yany Ingram MD prochlorperazine (COMPAZINE) injection 5-10 mg 5-10 mg Intravenous Q6H PRN Lanie Sotelo, DNP,[employer] IN[employer]ER saline with benzyl alcohol injection 0.1-0.3 mL 0.1-0.3 mL Intradermal PRN Yany Ingram MD senna (SENOKOT) tablet 8.6-17.2 mg 1-2 tablet oral QPM Carlene Rosen PA-C vancomycin (VANCOCIN) 1,250 mg in sodium chloride 0.9 % 250 mL IV piggyback 22 mg/kg Intravenous Q24H (NS) Carrington Erickson (February), Pharm D 166.67 mL/hr at 02/12/25 0623 1,250 mg at 02/12/25 0623 Vancomycin Pharmacy Consult 1 Consult N/A PRN Yany Ingram MD ALLERGIES/SENSITIVITIES No Known Allergies FAMILY HISTORY No family history on file. SOCIAL HISTORY Social History Tobacco Use Smoking status: Every Day Types: Cigarettes, Cigars Social History Substance and Sexual Activity Drug Use Not on file Social History Substance and Sexual Activity Sexual Activity Not on file IMMUNIZATION HISTORY There is no immunization history on file for this patient. TRAVEL HISTORY No pertinent travel history for this problem. PHYSICAL EXAM BP 116/83 Pulse 79 Temp 98.5 ??F (36.9 ??C) Resp 18 Ht 5' 1 (1.549 m) Wt 53.6 kg (118 lb2.7 oz) LMP (LMP Unknown) SpO2 97% No BMI 22.33 kg/m?? Temp (24hrs), Av.2??F (36.8 ??C), Min:97 ??F (36.1 ??C), Max:99.3 ??F (37.4 ??C) Body mass index is 22.33 kg/m??. GENERAL APPEARANCE: She is in no acute distress. Eyes - Normal lids and conjuntivae, EOMs intact HENT: Head - Normocephalic, atraumatic Ears - External normal Nose - No deformity Oropharynx - Oral mucosa and pharnyx normal, moist mucous membranes. NECK: Supple Lungs - normal effort, speaks full sentences on room air CV - RRR no murmur Abd- soft NTND HEME/LYMPH/IMMUNOLOGIC: No unusual bleeding or bruising SKIN: Intact, warm, dry. No rashes or lesions. NEUROLOGIC: alert and oriented, moves all extremities EXTREMITIES: Rt hand with dressing. Right ring finger s/p amputation with dry gangrene at the tip. Lt index, ring finger s/p amputation, Lt middle and little finger necrotic dry tissue at the tip Results for orders placed or performed during the hospital encounter of 02/08/25 (from the past 24 hours) Culture-Aerobic Specimen: Index finger right; Site-Microbiology Result Value Ref Range Aerobic Culture Few colonies of Staphylococcus aureus (A) Aerobic Culture One colony of Gram Negative Bacilli (A) Gram Stain Result No bacteria seen. Gram Stain Result No WBC's seen / LPF CBC (HGB,HCT,WBC,RBC,Platelet) Result Value Ref Range WBC 21.6 (H) 4.3 - 10.8 K/uL RBC 2.34 (L) 4.20 - 5.40 M/uL Hemoglobin 8.4 (L) 12.0 - 16.0 gm/dL Hematocrit 27.2 (L) 36.0 - 48.0 % MCV 116 (H) 80 - 100 fL MCH 36 (H) 27 - 33 pg MCHC 31 (L) 33 - 36 gm/dL RDW 15.1 (H) 11.5 - 14.5 % Platelet Count 257 150 - 400 K/UL MPV 10.0 6.5 - 12 fL Basic Metabolic Profile Magnesium Result Value Ref Range Sodium 143 136 - 145 mmol/L Potassium 4.1 3.4 - 5.1 mmol/L Chloride 109 (H) 98 - 108 mmol/L Carbon Dioxide 26 20 - 31 mmol/L BUN (Urea Nitro) 10 9 - 23 mg/dL Creatinine 0.78 0.55 - 1.02 mg/dL Est GFR (CKD-EPI) >60.00 >60.00 mL/min/1.73m2 Glucose 69 (L) 74 - 106 mg/dL Calcium, Serum 8.0 (L) 8.7 - 10.4 mg/dL Anion Gap 8.0 0.0 - 15.0 mmol/L Magnesium 1.7 1.6 - 2.6 mg/dL Imaging results: Imaging results reviewed personally. \ Microbiology/ Cultures Results for orders placed or performed during the hospital encounter of 02/08/25 Culture-Aerobic Collection Time: 02/11/25 1:03 PM Specimen: Index finger right; Site-Microbiology Result Value Ref Range Aerobic Culture Few colonies of Staphylococcus aureus (A) Aerobic Culture One colony of Gram Negative Bacilli (A) Gram Stain Result No bacteria seen. Gram Stain Result No WBC's seen / LPF Culture-Anaerobe Collection Time: 02/09/25 11:05 AM Specimen: Finger; Site-Microbiology Result Value Ref Range CULT-ANAEROBE Mixed duane with no predominant anaerobe. * Nellie Lucio, PT - 02/12/2025 10:45 AM CDT Acute Physical Therapy Evaluation Patient Name: Hannah Loo Today's Date: 02/12/2025 Admission Date: 02/08/2025 Precautions Precautions: Isolation Isolation Type: Contact Precautions Comments: MRSA Assessment PT Assessment/Recommendations Assessment: Patient is a 45 y/o female presenting with osteomyelitis of R hand, now s/p R hand irrigation and debridement and amputation of R index finger. At baseline she lives with her SO and parents in a 2 story home, is independent with ADLs and does not use an AD for mobility. During evaluation she performed bed mobility, sit <> stand, gait w/o an AD and stairs w/o assist. Steady on fee t. Stairs were slow and effortful - reports good support at home and that family will assist if needed. No further acute PT needs. Strengths: Age, Prior level of function, Good family support Limitations/Discharge Barriers: Current medical status, Pain Endurance: Participates 10-20 min of therapy session Prognosis: Good Recommendations for Nursing: Up independently Discharge Support Recommendations: Is safe to discharge to previous living situation with prior level of assist/support Post Acute Therapy Needs: No PT needs Appropriate for Acute Inpatient Rehab?: No Not appropriate due to: Minimal skilled physical therapy needs Equipment Recommended for Discharge: None Equipment Issued: None Plan PT Frequency: No further acute PT needed Encounter Details General Diagnosis: Osteomyelitis Admission/Diagnosis Details: Transferred from [facility] with wet gangrene of R hand with suspision for osteomyelitis. 02/09 R hand irrigation and debridement, amputation of R index finger. 02/11 I&D of R hand. Pertinent Past Medical History: Newby's disease, tobacco use disorder, spontaneous amputation of multiple digits. Patient Seen In: Room Family/Caregiver Present: No Subjective Comments: Patient supine in bed when PT arrived. Required encouragement to participate. Lines and Tubes: IV Subjective/Social History Home Setup Type of Home: House Lives With: Significant Other, Mother, Father Home Layout: Two level Home Entry: Ramp Stairs within Home: Stairs with rails Rails: Unilateral Number of stairs: 15 Prior Level of Functional Mobility Independent with: All Mobility, ADLs, IADLs Mobility Equipment Used: None DME owned: Rolling walker, Grab bars, Shower chair, Motorized scooter History of falls: No Pain Patient complained of 11/10 pain in R hand Objective Cognitive Status Orientation Level: Oriented X4 ROM RLE: WFL LLE: WFL Strength Overall RLE Strength: WFL Overall LLE Strength: WFL Sensation Light Touch: Not tested Patient is functioning as follows: Bed Mobility Supine to Sit: Standby assist Sit to Supine: Standby assist Dangling: Standby assist Scooting: Standby assist Bed Mobility Comments: Slow and effortful Transfers Sit to/from Stand Level of Assist: Standby assist Assistive Device: No assistive device Ambulation Distance (ft): 300 Assistive Device: No assistive device Level of Assist: Standby Assist Quality of Gait: Steady gait Stairs/Curb Negotiation Method: Ambulation Number of Stairs: 5 UE Support: No UE support Level of Assist: Standby Assist Pattern: Step to Comments: Slow and efforful, limited from further stairs due to IV pole [facility] AM-PAC 6-Clicks Turning over in bed (including adjusting bed clothes, sheets, and blankets): Modified independent/independent Sitting down and standing up from a chair with arms: Modified independent/independent Moving from lying on back to sitting on the side of bed: Modified independent/independent Moving to and from a bed to a chair: Modified independent/independent Walk in hospital room?: Modified independent/independent Climbing 3-5 steps with a railing: Minimum/contact guard/standby assist AM-PAC 6 Clicks: Mobility Total Score: 23 The following scores are predictive of discharge disposition during acute hospitalization: Home= 20or greater; Home with Home Health=18; Continued skilled care at appropriate facility= 14 or less. Education/Safety Education Provided Patient Education: Role of PT, Safety with mobility, Plan of care, Risk of falls, Discharge recommendations Family Education: Family not present Safety Interventions Fall Risk?: No Safety Interventions/Patient Disposition: Standard interventions, In bed, Call light in hand, All needs within reach, Notified nursing staff Goals Patient/family participation in goal setting Patient/family participation in goal setting: Yes Patient goal preference: To have less pain. TIME SPENT WITH PATIENT PT Time Spent with Patient for Evaluation PT Evaluation: 20 PT Timed Code Treatment Minutes PT Total Billable Minutes: 20 Minutes * Socorro Blount OT - 02/12/2025 10:40 AM CDT Occupational Therapy Acute Evaluation Patient Name: Hannah Loo Today's Date: 02/12/2025 Admission Date: 02/08/2025 ASSESSMENT/PLAN/RECOMMENDATIONS Assessment/Plan/Recommendations OT Assessment: Pt seen in room by OT for initial evaluation. Pt is a 45 y/o female presenting with osteomyelitis of R hand, now s/p R hand irrigation and debridement and amputation of R index finger through metacarpophalangeal joint. At baseline, pt lives with her fiance and parents in a 2 level home, with ramp access. She is typically independent with all mobility without AD. Her fiance assists with ADLs/IADLs as needed at baseline, including toileting, LBD, managing clothing fasteners, meal prep and homemaking duties. Today, pt seen in room by OT. Sitting at EOB upon OT arrival. Pt's cognition is intact. Right hand is splinted and bandaged. She has history of previous finger amputations bi lateral hands and has learned ways to adapt/modify. Time spent discussing 1- handed techniques and compensatory strategies to increase independence with ADLs. Pt was issued a long handled bath sponge,rocker knife for 1-handed cutting of food, dycem, and built up foam telecommunicator handles. Pt completed bed mobility, transfers, and ambulation in room without AD and SBA. Toileting with SBA and occasional assist with khanh care. Reports increased right hand pain to level 8 with mobility/activity. Pt reportsgood support from family; she will be safe to return home with family support, when medically stable. Will follow acutely, but do not anticipate ongoing OT needs at d/c. Thank you. Discharge Support Recommendations: Is safe to discharge to previous living situation with prior level of assist/support (ongoing assist as needed) Requires assist with the following ADLs: Shower/bathing, Toileting, Grooming/hygiene, LE dressing, UE dressing (ongoing assist with LBD and fasteners) Requires assist with the following IADLs: Meal prep, Homemaking, Driving Post Acute Therapy Needs: No OT needs OT Assessment Results: Impaired ADLs, Impaired IADLs, Impaired coordination Strengths: Age, Prior level of function, Good family support, Patient cooperation, Ambulatory, Goodstrength, Patient motivation Limitations/Discharge Barriers: Pain, Current medical status, Needs assist with ADL, Decreased coordination Rehab Potential: Good OT Frequency: 1x/day, 3-5 days a week Recommendations For Next Session: MRADLs; continue 1-handed techniques; [facility] INPATIENT REHAB FACILITY CANDIDATE Inpatient Rehabilitation Facility Candidate Appropriate for Acute Inpatient Rehab?: No Not appropriate due to: Minimal skilled occupational therapy needs GENERAL General Visit Type: Initial Evaluation Diagnosis: osteomyelitis Admission/Diagnosis Details: Pt presented to outside hospital with wet gangrene of the right hand, with imaging concerning for osteo without presence of gas. Transferred to [facility] for hand/plastics specialist. Found to have osteomyelitis of right index finger, s/p amputation through metacarpophalangeal joint. 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 Sitting at EOB upon OT arrival. SAFETY INTERVENTIONS Safety Interventions Safety Interventions/Patient Disposition: Standard interventions, In bed, Call light in hand, All needs within reach Comment: pt seated EOB eating breakfast upon OT departure PAIN Patient complained of 8/10 pain in right hand HOME LIVING Home Setup Type of Home: House Lives With: Significant Other, Mother, Father Home Layout: Two level Home Entry: Ramp Stairs within Home: Stairs with rails Rails: Unilateral Number of stairs: 15 PRIOR FUNCTION ADL/IADL Prior Function ADL/IADL Patient is independent with: Feeding, Grooming, Bathing, Supervisor [employer], Medication Management, Driving Patient needs assist with: Dressing, Meal Preparation, Shopping, Homemaking, Toileting Receives Help From: Family Prior Function Comments: fiance assists as needed PRIOR FUNCTION MOBILITY Prior Level of Functional Mobility Independent with: All Mobility Mobility Equipment Used: None DME owned: Rolling walker, Grab bars, Shower chair, Motorized scooter COGNITIVE STATUS Cognitive Status Overall Cognitive Status: Within Functional Limits VISION Vision - Basic Assessment Current Vision: Wears glasses all the time UPPER EXTREMITY ASSESSMENTS ROM RUE ROM: Functional LUE ROM : Functional Comments: proximal RUE AROM WFL; right hand splinted/wrapped s/p index finger amputation. Pt with prior finger amputations. Strength RUE Strength: Functional LUE Strength: Functional AM-PAC Outcome Measure 6 Clicks Daily ADL AM-PAC Putting on and taking off regular lower body clothing?: A Lot Bathing (including washing, rinsing, drying)?: A Lot Toileting, which includes using toilet, bedpan or urinal?: A Little Putting on and taking off regular upper body clothing?: A Little Taking care of personal grooming such as brushing teeth?: A Little Eating meals?: None AM-PAC Daily Activity Raw Score: 17 AM-PAC Daily Activity CMS 0-100% Score: 50.11 AM-PAC Daily Activity t-Scale Score: 37.26 The following scores are predictive of discharge disposition during acute hospitalization: Home= 20.1; Home with Home Health= 17.9; TCU=14; IRF=13.6; LTACH=11.5 Please refer to narrative for assessment of functional performance and discharge recommendations asscores may not always reflect mobility, cognitive aspects of performance or instrumental activitiesof daily living (IADLs) CURRENT ADL/IADL STATUS Current ADL Status Equipment Provided: Dycem, Feeding equipment, Long-handled sponge Eating Assistance: Modified independent UE Dressing Assistance: Minimal LE Dressing Assistance: Moderate Toileting Assistance: Minimal, SBA ADL Comments: pt requires assist at baseline to don socks and for clothing fasteners-fiance assists; he also assists as needed with toileting for khanh care. Provided adaptive equipment to increase independence with eating, including dycem, built up foam flattening machine operator, and rocker knife. FUNCTIONAL MOBILITY Bed Mobility Supine to Sit: SBA Sit to Supine: SBA Dangling: SBA Functional Transfers Sit to Stand: SBA Stand to Sit: SBA Toilet: SBA Functional Mobility Functional Mobility: Pt ambulating in room without AD and SBA ACTIVITY TOLERANCE Activity Tolerance Endurance: Participates 30+ min of therapy session PATIENT EDUCATION Patient Education Patient Education: Role of OT, Plan of care, Adaptive equipment, Compensatory techniques for ADLs TIME SPENT WITH PATIENT OT Timed Code Treatment Minutes OT Evaluation: 18 OT Self-Care/Home Management: 15 OT Total Minutes Spent with Patient Total Minutes Spent With Patient (billable): 33 Minutes GOALS Time Frame Short term goals target date: 02/19/25 STG Grooming Patient will complete daily grooming and light hygiene task: modified independently, while standingat the sink Outcome: Goal Ongoing STG Toileting Patient will complete toileting: with supervision Outcome: Goal Ongoing STG Endurance/Activity Tolerance As a measure of improved activity tolerance, patient will perform: ADL task, for 10 minutes, independently Outcome: Goal Ongoing * Irma Zheng, Pharm D - 02/12/2025 9:16 AM CDT Pharmacy Kinetics Consult Hannah Loo, 02/12/2025, Time: 9:16 AM SUBJECTIVE Hannah Loo is a 44 y.o. female who was admitted on 02/08/2025. Pharmacy was consulted by Dr. Ingram to dose and monitor Vancomycin for osteomyelitis. OBJECTIVE Antibiotic Allergies: NKDA Current/Recent Antibiotics: Zosyn (02/07 - p) 1st doses at OSH Cultures and Sensitivities: 02/09 blood x2: MRSA, E coli 02/11 wound cx: NG Vitals: Temp (24hrs), Av.2 ??F, Min:97 ??F, Max:99.3 ??F Height: 154.9 cm (5' 1) Weight: 53.6 kg (118 lb 2.7 oz) [place] body weight: 47.8 kg (105 lb 6.1 oz) Adjusted ideal body weight: 50.1 kg (110 lb 7.9 oz) Labs: Recent Labs 02/11/25 0714 02/11/25 1015 02/12/25 0722 WBC 9.0 -- 21.6* CREATININE -- < > 0.78 PROCALCITON 4.22* -- -- < > = values in this interval not displayed. Date Day Scr CrCL Dose/Freq Time Level Comments 02/07 1 1000 mg IV 2048* Given at OSH 02/08 2 0.28 >100 1000 mg q12h , 02/09 3 0.50 >100 1000 mg q12h , 20 AUC 552 02/10 4 0.82 65 1000 mg q12h 08 02/11 5 0.84 63 1250 mg q24h 06 02/12 6 0.78 68 1250 mg q24h 06 ASSESSMENT/PLAN 44 yo female admitted for osteomyelitis. She received first doses of antibiotics prior to transfer from OSH. Scr trending down to 0.78 today. Underwent debridement of right hand with partial resection of 2nd metacarpal on 02/11. My need more resection depending on clinical exam. Blood cultures now growing MRSA. Continue maintenance regimen of 1250mg IV q24h at this time. This regimen is predicted to achieve an AUC of 542 mg*h/L (PAUC 100%, PTOX 8%). Dose: Vancomycin 1250 mg IV every 24 hours Vancomycin goal: AUC 400-600mg*hr/L Next vancomycin level due: TBD Antibiotic time-out to be completed 02/10/25, pending surgical plan and cx sensitivities Discharge Recommendation: N/A Angeli HawkinsD Pharmacy will continue to follow. Please call with questions. Phone #: [phone] * Irma Zheng, Angeli D - 2025 9:08 AM CDT Pharmacy Kinetics Consult Hannah Loo, 2025, Time: 9:08 AM SUBJECTIVE Hannah Loo is a 44 y.o. female who was admitted on 02/08/2025. Pharmacy was consulted by Dr. Ingram to dose and monitor Vancomycin for osteomyelitis. OBJECTIVE Antibiotic Allergies: NKDA Current/Recent Antibiotics: Zosyn (02/07 - p) 1st doses at OSH Cultures and Sensitivities: 02/09 blood x2: staph aureus, GNB Vitals: Temp (24hrs), Av.3 ??F, Min:97.6 ??F, Max:98.9 ??F Height: 154.9 cm (5' 1) Weight: 53.6 kg (118 lb 2.7 oz) [place] body weight: 47.8 kg (105 lb 6.1 oz) Adjusted ideal body weight: 50.1 kg (110 lb 7.9 oz) Labs: Recent Labs 02/10/25 0729 02/11/25 0714 WBC 12.3* 9.0 CREATININE 0.82 -- PROCALCITON -- 4.22* Date Day Scr CrCL Dose/Freq Time Level Comments 02/07 1 1000 mg IV 2048* Given at OSH 02/08 2 0.28 >100 1000 mg q12h , 20 02/09 3 0.5 >100 1000 mg q12h , 20 AUC 552 02/10 4 0.82 65 1000 mg q12h 08 02/11 5 0.84 63 1250 mg q24h 06 ASSESSMENT/PLAN 44 yo female admitted for osteomyelitis. She received first doses of antibiotics prior to transfer from OSH. Low Scr will over-estimate renal function, rendering initial InsightRx predications inaccurate. Will continue Vancomycin dosing with 20 mg/kg IV q12h and get an early level to assess therapyif ongoing therapy is anticipated. Return to OR Tu02/11 for repeat I & D and possible ray amputation to right 2nd finger. Scr increased to 0.84 yesterday. Continue maintenance regimen of 1250mg IV q24h at this time. This regimen is predicted to achieve an AUC of 585 mg*h/L (PAUC 100%, PTOX 9%). Dose: Vancomycin 1250 mg IV every 24 hours Vancomycin goal: AUC 400-600mg*hr/L Next vancomycin level due: TBD Antibiotic time-out to be completed 02/10/25, pending surgical plan and cx sensitivities Discharge Recommendation: N/A Irma Whyte PharmD Pharmacy will continue to follow. Please call with questions. Phone #: [phone] * Carrington Erickson (February), Pharm D - 02/10/2025 12:45 PM CDT Pharmacy Kinetics Consult Hannah Loo, 02/10/2025, Time: 12:45 PM SUBJECTIVE Hannah Loo is a 44 y.o. female who was admitted on 02/08/2025. Pharmacy was consulted by Dr. Ingram to dose and monitor Vancomycin for osteomyelitis. OBJECTIVE Antibiotic Allergies: NKDA Current/Recent Antibiotics: Zosyn (02/07 - p) 1st doses at OSH Cultures and Sensitivities: None Vitals: Temp (24hrs), Av.2 ??F, Min:98.1 ??F, Max:98.3 ??F Height: 154.9 cm (5' 1) Weight: 53.6 kg (118 lb 2.7 oz) [place] body weight: 47.8 kg (105 lb 6.1 oz) Adjusted ideal body weight: 50.1 kg (110 lb 7.9 oz) Labs: Recent Labs 02/08/25 0724 02/09/25 0723 02/10/25 0729 WBC 16.1* < > 12.3* CREATININE 0.33* < > 0.82 PROCALCITON 33.40* -- -- < > = values in this interval not displayed. Date Day Scr CrCL Dose/Freq Time Level Comments 02/07 1 1000 mg IV 2048* Given at OSH 02/08 2 0.28 >100 1000 mg Q12H 08, 20 02/09 3 0.5 >100 1000 mg Q12H , 20 AUC 552 02/10 4 0.82 65 1000 mg 08 1250 mg q24h 06 ASSESSMENT/PLAN 44 yo female admitted for osteomyelitis. She received first doses of antibiotics prior to transfer from OSH. Low Scr will over-estimate renal function, rendering initial InsightRx predications inaccurate. Will continue Vancomycin dosing with 20 mg/kg IV q12h and get an early level to assess therapyif ongoing therapy is anticipated. Return to [facility] 02/11 for repeat I & D and possible ray amputation to right 2nd finger. 02/10: scr increased to 0,81, will change vancomycin from 1000mg iv q12h to 1250mg iv q24h 02/09:Level this morning came back at 13.5 which correlates to an AUC 552 mg*hr/L which is therapeutic so continue current regimen. Dose: Vancomycin 1250 mg IV every 24 hours Estimated: AUC 24,22: 578 mg/L.hr Probability of AUC>400: 100% Probability of Ctrough>20: 2% Probability of nephrotoxicity: 9% Vancomycin goal: AUC 400-600mg*hr/L Next vancomycin level due: TBD Antibiotic time-out to be completed 02/10/25 Discharge Recommendation: N/A Eleanor Mckinley, PharmD Pharmacy will continue to follow. Please call with questions. Phone #: [phone] * Jeni Nina, Pharm D - 02/09/2025 8:18 AM CDT Pharmacy Kinetics Consult Hannah Loo, 02/09/2025, Time: 8:18 AM SUBJECTIVE Hannah Loo is a 44 y.o. female who was admitted on 02/08/2025. Pharmacy was consulted by Dr. Ingram to dose and monitor Vancomycin for osteomyelitis. OBJECTIVE Antibiotic Allergies: NKDA Current/Recent Antibiotics: Zosyn (02/07 - p) 1st doses at OSH Cultures and Sensitivities: None Vitals: Temp (24hrs), Av.5 ??F, Min:97.8 ??F, Max:98.9 ??F Height: 154.9 cm (5' 1) Weight: 53.6 kg (118 lb 2.7 oz) [place] body weight: 47.8 kg (105 lb 6.1 oz) Adjusted ideal body weight: 50.1 kg (110 lb 7.9 oz) Labs: Recent Labs 02/08/25 0724 WBC 16.1* CREATININE 0.33* PROCALCITON 33.40* Date Day Scr CrCL Dose/Freq Time Level Comments 02/07 1 1000 mg IV 2048* Given at OSH 02/08 2 0.28 >100 1000 mg Q12H 08, 20 02/09 3 0.5 >100 1000 mg Q12H 08, 20 AUC 552 ASSESSMENT/PLAN 44 yo female admitted for osteomyelitis. She received first doses of antibiotics prior to transfer from OSH. Low Scr will over-estimate renal function, rendering initial InsightRx predications inaccurate. Will continue Vancomycin dosing with 20 mg/kg IV q12h and get an early level to assess therapyif ongoing therapy is anticipated. Level this morning came back at 13.5 which correlates to an AUC 552 mg*hr/L which is therapeutic socontinue current regimen. Dose: Vancomycin 1000 mg IV every 12 hours Vancomycin goal: AUC 400-600mg*hr/L Next vancomycin level due: 5 AM Antibiotic time-out to be completed 02/10/25 Discharge Recommendation: N/A Jeni Waite PharmD, [facility] Pharmacy will continue to follow. Please call with questions. 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 The change was inthe right index finger, which progressively became more painful. Beginning last week, she noted pain and redness on the back of the hand at the base of the index finger, and after spontaneously draining some pus from the dorsal wound, things started to feel better. Her daughter came to visit this week, and encouraged her mom to come into the hospital. By this time, the redness and pain involve not only the dorsum of the hand but also the palm. Over the last several months, the patient has noted autoamputation of multiple digits. Currently, the left middle finger and small finger are black. She keeps these fingers covered with Band-Aids. Upuntil a week ago, she kept the right index finger and right middle finger dressed with dry gauze. It has been progressively more difficult for her to change the bandages due to ongoing pain, so she Ms. Mota estimates it has been a few days since changing her bandages around the right index finger. She has chronic pain involving all her digits and hands, but its become much worse since dealing with this infection. She is also noted stiffness moving the right index finger, but her right thumb isstill able to move relatively comfortably. PAST MEDICAL/SURGICAL HISTORY: No past medical history on file. No past surgical history on file. MEDICATIONS: Current Facility-Administered Medications: saline FLUSH syringe 10 mL, 10 mL, Intravenous, Q8H, Yany Ingram MD, 10 mL at 02/08/25 0549 saline FLUSH syringe 10 mL, 10 mL, Intravenous, PRN, Yany Ingram MD, 10 mL at 02/08/25 0548 acetaminophen (TYLENOL) tablet 1,000 mg, 1,000 mg, oral, Q6H PRN, Yany Ingram MD famotidine (PEPCID) injection 20 mg, 20 mg, Intravenous, Twice Daily, Yany Ingram MD, 20 mg at 02/08/25 0805 HYDROmorphone (Dilaudid) syringe 0.5-1 mg, 0.5-1 mg, Intravenous, Q2H PRN, Yany Ingram MD, 1 mg at 02/08/25 1253 lidocaine (LMX-4) topical cream 1 Application, 1 Application, topical, PRN, Yany Ingram MD lidocaine 1% injection (conc: 10 mg/mL) 0.1-0.3 mL, 0.1-0.3 mL, Intradermal, PRN, Yany Ingram MD MAGNESIUM REPLACEMENT INTRAVENOUS - NOT FOR DOCUMENTATION PURPOSES, , Intravenous, PER PROTOCOL, Yany Ingram MD nicotine (NICOTROL) 7 mg/24 hr patch 7 mg, 1 patch, Transdermal, DAILY, Carlene Rosen PA-C ondansetron (Zofran) injection 4-8 mg, 4-8 mg, Intravenous, Q8H PRN OR ondansetron (Zofran) disintegrating tablet 4-8 mg, 4-8 mg, oral, Q8H PRN, Yany Ingram MD, 4 mg at 02/08/25 1149 oxyCODONE (immediate release) (ROXICODONE) tablet 5-10 mg, 5-10 mg, oral, Q4H PRN, Yany Ingram MD, 10 mg at 02/08/25 0548 piperacillin-tazobactam (ZOSYN) 3.375 g in sodium chloride 0.9 % 100 mL IV piggyback, 3.375 g, Intravenous, Q8H (NS), Yany Ingram MD, Last Rate: 25 mL/hr at 02/08/25 1149, 3.375 g at 02/08/25 1149 potassium chloride 10 mEq IV piggyback in 100 mL, 10 mEq, Intravenous, Q1H, Anthony Coelho DO, Last Rate: 100 mL/hr at 02/08/25 1259, 10 mEq at 02/08/25 1259 POTASSIUM REPLACEMENT INTRAVENOUS - NOT FOR DOCUMENTATION PURPOSES, , Intravenous, PER PROTOCOL, Yany Ingram MD POTASSIUM REPLACEMENT ORAL - NOT FOR DOCUMENTATION PURPOSES, , oral, PER PROTOCOL, Yany Ingram MD saline with benzyl alcohol injection 0.1-0.3 mL, 0.1-0.3 mL, Intradermal, PRN, Yany Ingram MD sodium chloride 0.9 % IV solution, , Intravenous, CONTINUOUS, Carlene Rosen PA-C, Last Rate: 50 mL/hr at 02/08/25 1252, New Bag at 02/08/25 1252 vancomycin (VANCOCIN) 1,000 mg in sodium chloride 0.9 % 250 mL IV piggyback, 20 mg/kg, Intravenous,Q12H (NS), Ronnell Estevez, Pharm D, Last Rate: 250 mL/hr at 02/08/25 0837, 1,000 mg at 02/08/25 0837 Vancomycin Pharmacy Consult, 1 Consult, N/A, Val GUTIERREZ Kimberly J, MD ALLERGIES: No Known Allergies SOCIAL HISTORY: Social History Socioeconomic History Marital status: Spouse name: Not on file Number of children: Not on file Years of education: Not on file Highest education level: Not on file Occupational History Not on file Tobacco Use Smoking status: Every Day Types: Cigarettes, Cigars Smokeless tobacco: Not on file Substance and Sexual Activity Alcohol use: Not on file Drug use: Not on file Sexual activity: Not on file Other Topics Concern Not on file Social History Narrative Not on file Social Drivers of Health Food Insecurity: No Food Insecurity (02/08/2025) Hunger Vital Sign Worried About Running Out of Food in the Last Year: Never true Ran Out of Food in the Last Year: Never true Transportation Needs: No Transportation Needs (02/08/2025) PRAPARE - Transportation Lack of Transportation (Medical): No Lack of Transportation (Non-Medical): No Intimate Partner Violence: Not At Risk (02/08/2025) Humiliation, Afraid, Rape, and Kick questionnaire Fear of Current or Ex-Partner: No Emotionally Abused: No Physically Abused: No Sexually Abused: No Housing Stability: Low Risk (02/08/2025) Housing Stability Vital Sign Unable to Pay for Housing in the Last Year: No Number of Times Moved in the Last Year: 0 Homeless in the Last Year: No REVIEW OF SYSTEMS: Negative for fevers and chills. PHYSICAL EXAM: Vital signs: Temperature 36.9 ??C, heart rate 86, blood pressure 137/89 GENERAL: No acute distress HEENT: Normocephalic atraumatic. NECK: Full range of motion without pain EXTREMITIES: The right index finger is notable for wet gangrene circumferentially distal to the PIPjoint, with skin loss on the ulnar aspect toward the second webspace. The skin over the radial aspect of the base of the index finger is cellulitic, and dorsally there is a wound in the second webspace through which purulence freely emanates. The cellulitis extends over the dorsum of the hand and into the palm sparing the thenar eminence. Despite the obvious cellulitis in the palm, the tender wrist area is over the dorsum. LABORATORY DATA: White count 16 this morning CRP 8.2 IMAGING: X-rays of the right hand demonstrate bony changes consistent with osteomyelitis involving distal, middle and proximal phalanges of the index finger. ASSESSMENT/PLAN: This is a 44-year-old woman with infected gangrene of her right index finger. I recommended proceeding with operative debridement of the gangrenous tissue, which includes amputating through the metacarpal phalangeal joint. I counseled the patient that infection control may require multiple procedures, and ultimately the possibility of more proximal amputation. The patient has some insight into her disease progress and has no objections to proceeding with amputation of the right index finger. Plan for NPO after midnight tonight and debridement surgery tomorrow. This plan was conveyed to thehospitalist team at bedside. Taylor Gutierrez MD * Jeni Nina, Pharm D - 02/08/2025 7:05 AM CDT Pharmacy Kinetics Consult Hannah Loo, 02/08/2025, Time: 7:05 AM SUBJECTIVE Hannah Loo is a 44 y.o. female who was admitted on 02/08/2025. Pharmacy was consulted by Dr. Ingram to dose and monitor Vancomycin for osteomyelitis. OBJECTIVE Antibiotic Allergies: NKDA Current/Recent Antibiotics: Zosyn (02/07 - p) 1st doses at OSH Cultures and Sensitivities: None Vitals: Temp (24hrs), Av.9 ??F, Min:98.8 ??F, Max:98.9 ??F Height: 154.9 cm (5' 1) Weight: 53.6 kg (118 lb 2.7 oz) [place] body weight: 47.8 kg (105 lb 6.1 oz) Adjusted ideal body weight: 50.1 kg (110 lb 7.9 oz) Labs: Recent Labs 02/08/25 0145 WBC 15.5* CREATININE 0.28* Date Day Scr CrCL Dose/Freq Time Level Comments 02/07 1 1000 mg IV 2048* Given at OSH 02/08 2 0.28 >100 1000 mg Q12H 08 20 ASSESSMENT/PLAN 44 yo female admitted for osteomyelitis. She received first doses of antibiotics prior to transfer from [facility]. Low Scr will over-estimate renal function, rendering initial InsightRx predications inaccurate. Will continue Vancomycin dosing with 20 mg/kg IV q12h and get an early level to assess therapyif ongoing therapy is anticipated. Will order a level for tomorrow given low creatinine. Dose: Vancomycin 1000 mg IV every 12 hours Vancomycin goal: AUC 400-600mg*hr/L Next vancomycin level due: 02/09 AM Antibiotic time-out to be completed 02/10/25 Discharge Recommendation: N/A Jeni Waite, PharmD, [facility] Pharmacy will continue to follow. Please call with questions. Phone #: [phone] * Taylor Gutierrez MD - 02/08/2025 6:07 AM CDTAssociated Order(s): CONSULT PLASTIC SURGERY Brief Consult Note Dr. Ingram requested my evaluation of Ms Loo for defintiive management of wet gangrene of right index finger. The patient is a 44 yo smoker who was transferred from [facility] due to wet gangrene of the right index finger. The patient is hemodynamically normal with a leukocytosis to 15 and cellulitis emanating from an obviously necrotic right index finger finger. The skin necrosis involves the index finger down to the palmar crease and the cellulitis involves the palm at the base ofthe index finger. The middle finger is notable for dry gangrene through the DIPJ and healed amputattion of the ring finger. Left hand is notable for autoamputations of the index and middle finger with dry gangrene of the middle and small fingers. I recommended local wound care and IV antibiotics for cellulitis managmenet with a view toward I&D in 1-2 days. This plan was conveyed to Dr. Ingram. Full consult to follow. Taylor Gutierrez MD * Ronnell Estevez, Pharm D - 02/08/2025 3:15 AM CDT Pharmacy Kinetics Consult Hannah Loo, 02/08/2025, Time: 3:15 AM SUBJECTIVE Hannah Loo is a 44 y.o. female who was admitted on 02/08/2025. Pharmacy was consulted by Dr. Ingram to dose and monitor Vancomycin for osteomyelitis. OBJECTIVE Antibiotic Allergies: NKDA Current/Recent Antibiotics: Zosyn (02/07 - p) 1st doses at OSH Cultures and Sensitivities: None Vitals: Temp (24hrs), Av.8 ??F, Min:98.8 ??F, Max:98.8 ??F Height: 154.9 cm (5' 1) Weight: 53.6 kg (118 lb 2.7 oz) [place] body weight: 47.8 kg (105 lb 6.1 oz) Adjusted ideal body weight: 50.1 kg (110 lb 7.9 oz) Labs: Recent Labs 02/08/25 0145 WBC 15.5* CREATININE 0.28* Date Day Scr CrCL Dose/Freq Time Level Comments 02/07 1 1000 mg IV 2048* Given at OSH 02/08 2 0.28 >100 ASSESSMENT/PLAN 44 yo female admitted for osteomyelitis. She received first doses of antibiotics prior to transfer from OSH. Low Scr will over-estimate renal function, rendering initial [facility] predications inaccurate. Will continue Vancomycin dosing with 20 mg/kg IV q12h and get an early level to assess therapyif ongoing therapy is anticipated. Dose: Vancomycin 1000 mg IV every 12 hours Vancomycin goal: AUC 400-600mg*hr/L Next vancomycin level due: TBD Antibiotic time-out to be completed 02/10/25 Discharge Recommendation: N/A Ronnell Mckinley Pharm D Pharmacy will continue to follow. Please call with questions. Phone #: [phone] documented in this encounter Nursing Notes * Subject, Mila Guillermo RN - 02/16/2025 2:18 PM CDT Problem: Pain Goal: Exhibits reduction in pain to a level of acceptable comfort Outcome: Ongoing Problem: Tobacco Use or Exposure Goal: Adheres to tobacco-free environment Outcome: Met this shift Problem: Anticoagulation, pharmacologic therapy Goal: Adheres to therapeutic regimen Outcome: Met this shift * Wilbur Sanchez RN - 02/16/2025 10:25 AM CDT Report given to SINGH Zaragoza. Pt is asleep, but awakens easily. States pain in fingertips/throat improved after dilaudid. Pt remains on 2L NC for now until more awake. Denies nausea. Pt updated with findings per MD procedure note. Daughter is waiting in room. * Patricia Herring RN - 02/16/2025 2:50 AM CDT Problem: Falls/Injury-Risk of Goal: Absence of Falls/Injury Outcome: Met this shift Flowsheets Taken 02/16/2025 0247 by Patricia Herring RN Environmental Safety Interventions: Standard Interventions in Place Mobility Safety Interventions: Standard Interventions in Place Elimination Safety Interventions: Standard Interventions in Place Medication: Standard Interventions in Place Taken 02/14/2025 0100 by Axel Torres RN Consults: Physical Therapy (Requires MD Order) Social Service Consult Problem: Pain Goal: Exhibits reduction in pain to a level of acceptable comfort Outcome: Met this shift Problem: Mobility - Impaired Goal: Demonstrates ability to perform physical activity independently or with assistive devices as needed Outcome: Met this shift * uRbia Velásquez RN - 02/15/2025 5:57 PM CDT Problem: Falls/Injury-Risk of Goal: Absence of Falls/Injury Outcome: Met this shift Problem: Pain Goal: Exhibits reduction in pain to a level of acceptable comfort Outcome: Ongoing Problem: Mobility - Impaired Goal: Demonstrates ability to perform physical activity independently or with assistive devices as needed Outcome: Met this shift * Michael Bishop RN - 02/15/2025 5:19 AM CDT Problem: Falls/Injury-Risk of Goal: Absence of Falls/Injury Outcome: Met this shift Flowsheets Taken 02/15/2025 0429 by Chrsi Cristina Environmental Safety Interventions: Standard Interventions in Place Mobility Safety Interventions: Standard Interventions in Place Elimination Safety Interventions: Standard Interventions in Place Taken 02/15/2025 0051 by Michael Bishop RN Medication: Standard Interventions in Place Taken 02/14/2025 0100 by Axel Torres RN Consults: Physical Therapy (Requires MD Order) Social Service Consult Problem: Pain Goal: Exhibits reduction in pain to a level of acceptable comfort Outcome: Met this shift Problem: Mobility - Impaired Goal: Demonstrates ability to perform physical activity independently or with assistive devices as needed Outcome: Met this shift 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, Surgical Site Infection Goal: Verbalizes an understanding of infection risks and prevention measures Outcome: Met this shift * Shashank Chen RN - 02/14/2025 4:53 PM CDT Problem: Pain Goal: Exhibits reduction in pain to a level of acceptable comfort Outcome: Ongoing Problem: Mobility - Impaired Goal: Demonstrates ability to perform physical activity independently or with assistive devices as needed Outcome: Ongoing Goal: Verbalizes an understanding of immobility risks and complications Outcome: Ongoing 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, Surgical Site Infection Goal: Verbalizes an understanding of infection risks and prevention measures Outcome: Ongoing Goal: Demonstrates appropriate dressing change technique Outcome: Ongoing * Maria Guadalupe Cagle RN - 02/14/2025 2:58 PM CDT Problem: Falls/Injury-Risk of Goal: Absence of Falls/Injury Outcome: Met this shift Problem: Falls/Injury-Risk of Goal: Absence of Falls/Injury Outcome: Met this shift Problem: Mobility - Impaired Goal: Demonstrates ability to perform physical activity independently or with assistive devices as needed Outcome: Met this shift Problem: Pressure Injury - Risk of Goal: Absence of pressure injury Outcome: Met this shift * Axel Torres RN - 02/14/2025 1:17 AM CDT Problem: Falls/Injury-Risk of Goal: Absence of Falls/Injury Outcome: Met this shift Flowsheets Taken 02/13/2025 1800 by Rubia Velásquez RN Environmental Safety Interventions: Standard Interventions in Place Mobility Safety Interventions: Standard Interventions in Place Elimination Safety Interventions: Standard Interventions in Place Medication: Standard Interventions in Place Taken 02/09/2025 0743 by Lynnette Donald RN Consults: Pharmacy Consult for Medication Review Patient will not fall during their hospital stay. Physical assistance, gait belt and PT equipment will be used as necessary when ambulating. * Rubia Velásquez RN - 02/13/2025 6:29 PM CDT Problem: Falls/Injury-Risk of Goal: Absence of Falls/Injury Outcome: Met this shift Problem: Pain Goal: Exhibits reduction in pain to a level of acceptable comfort Outcome: Ongoing Problem: Mobility - Impaired Goal: Demonstrates ability to perform physical activity independently or with assistive devices as needed Outcome: Met this shift * Maria Guadalupe Cagle RN - 02/13/2025 2:05 PM CDT Problem: Pain Goal: Exhibits reduction in pain to a level of acceptable comfort Outcome: Ongoing Problem: Falls/Injury-Risk of Goal: Absence of Falls/Injury Outcome: Met this shift Problem: Falls/Injury-Risk of Goal: Absence of Falls/Injury Outcome: Met this shift Problem: Mobility - Impaired Goal: Verbalizes an understanding of immobility risks and complications Outcome: Met this shift Problem: Discharge Planning Goal: Establish appropriate post-hospitalization placement Outcome: Met this shift * Danyelle De La Garza, OT - 02/13/2025 2:02 PM CDT Occupational Therapy Acute Treatment Patient Name: Hannah Loo Today's Date: 02/13/2025 Admission Date: 02/08/2025 ASSESSMENT/PLAN/RECOMMENDATIONS Assessment/Plan/Recommendations OT Assessment: Pt was seen in room for OT treatment session. Pt reclined in bed on arrival, agreeable to OT. Pt reports she is currently modified independent with feeding, hygienes, toileting. Has assist with dressing and bathing at home. Has shower chair. Concerned about LE weakness and stairs (PTmessaged per pt request). Completed 10 sit to stand transfers independently. Has been ambulating independently with IV pole, standing for long periods of time. Pt was educated on energy conservation techniques to incorporate at home. Pt verbalized understanding. Pt voiced no functional concerns fordischarge home. Has met all OT goals. No further OT needs indicated at this time. Thank you. Discharge Support Recommendations: Is safe to discharge to previous living situation with prior level of assist/support Requires assist with the following ADLs: UE dressing, LE dressing, Shower/bathing (ongoing assist with LE dressing and fasteners) Requires assist with the following IADLs: Meal prep, Homemaking, Driving Post Acute Therapy Needs: No OT needs OT Assessment Results: Impaired ADLs, Impaired IADLs, Impaired coordination Strengths: Age, Prior level of function, Good family support, Patient cooperation, Ambulatory, Goodstrength, Patient motivation Limitations/Discharge Barriers: Pain, Current medical status, Needs assist with ADL, Decreased coordination INPATIENT REHAB FACILITY CANDIDATE Inpatient Rehabilitation Facility Candidate Appropriate for Acute Inpatient Rehab?: No GENERAL General Visit Type: Treatment Diagnosis: Osteomyelitis Admission/Diagnosis Details: Transferred from [facility] with wet gangrene of R hand with suspicion for osteomyelitis. 02/09 R hand irrigation and debridement, amputation of R index finger. 02/11 I&D of R hand. Pertinent Past Medical History: Newby's disease, tobacco use disorder, spontaneous amputation of multiple digits Patient Seen In: Room Family/Caregiver Present: No Lines and Tubes: IV Subjective (Comment): Pt reclined in bed on arrival, agreeable to OT. PRECAUTIONS Precautions Precautions: Isolation Isolation Type: Contact Precautions Comments: MRSA SAFETY INTERVENTIONS Safety Interventions Fall Risk?: No Safety Interventions/Patient Disposition: Standard interventions PATIENT IS FUNCTIONING FOLLOWS: Current ADL and IADL Status Current ADL Status Eating Assistance: Modified independent Toileting Assistance: Modified independent Current IADL Status Meal Preparation: family assists Functional Mobility Bed Mobility Rolling: Independent Scooting: Independent Supine to Sit: Independent Sit to Supine: Independent Dangling: Independent Functional Transfers Sit to Stand: Independent Stand to Sit: Independent Functional Transfer Comments: Completed 10 sit to stand transfers independently. Activity Tolerance Endurance: Participates 10-20 min of therapy session AM-PAC Outcome Measure 6 Clicks Daily ADL AM-PAC Putting on and taking off regular lower body clothing?: A Lot Bathing (including washing, rinsing, drying)?: A Lot Toileting, which includes using toilet, bedpan or urinal?: None Putting on and taking off regular upper body clothing?: None Taking care of personal grooming such as brushing teeth?: None Eating meals?: None AM-PAC Daily Activity Raw Score: 20 AM-[facility] Daily Activity CMS 0-100% Score: 38.32 AM-PAC Daily Activity t-Scale Score: 42.03 The following scores are predictive of discharge disposition during acute hospitalization: Home= 20.1; Home with Home Health= 17.9; TCU=14; IRF=13.6; LTACH=11.5 Please refer to narrative for assessment of functional performance and discharge recommendations asscores may not always reflect mobility, cognitive aspects of performance or instrumental activitiesof daily living (IADLs) PATIENT EDUCATION Patient Education Patient Education: Energy conservation, Discharge recommendations TIME SPENT WITH PATIENT OT Timed Code Treatment Minutes OT Self-Care/Home Management: 8 OT Therapeutic Activity: 10 OT Total Minutes Spent with Patient Total Minutes Spent With Patient (billable): 18 Minutes GOALS Time Frame Short term goals target date: 02/19/25 STG Grooming Patient will complete daily grooming and light hygiene task: modified independently, while standingat the sink Outcome: Goal Met STG Toileting Patient will complete toileting: with supervision Outcome: Goal Met STG Endurance/Activity Tolerance As a measure of improved activity tolerance, patient will perform: ADL task, for 10 minutes, independently Outcome: Goal Met * Raudel Kamara RN - 02/12/2025 9:03 AM CDT Care Management - Progress Note Patient's chart reviewed. Patient discussed in rounds. Patient Class: Inpatient Overview: Osteomyelitis (Hands pain,Gangrene) 02/09 I&D and R index finger amputation through metacarpophalangeal joint 02/11 Debridement of right hand, partial resection of 2nd metacarpal Right hand splint and NARCISA CDI. Pain minimally managed with the current post op regimen. Usually reports 10+/10 IVABX and fluid infusing Anticipated Discharge Date: per providers Anticipated Discharge Needs: TBD Case Management Barriers: None Insurance Coverage Information (for Hospital ) F/O Payor/Plan Precert # MEDICAID[place]ID [place] Subscriber Subscriber # Hannah Loo [id number] Address Phone [address] [address] [place] [address] Care Coordination Plan & Communication with Patient/Family: Moving independent in the room [facility] (intake # [phone]; nurses # [phone]), to check insurance coverage for home IV antibiotics, if ordered. Plan: Overall discharge plan has yet to be determined pending hospital course and progression with therapies. Nurse Engineering Teacher will continue to follow to assist with discharge needs. - [facility] (intake # [phone]; nurses # [phone]), to check insurance coverage for home IV antibiotics, if ordered. Raudel Kamara, SINGH-Case Management. # [phone] * Mercedez Hui RN - 02/10/2025 3:09 AM CDT Problem: Falls/Injury-Risk of Goal: Absence of Falls/Injury Outcome: Met this shift Flowsheets Taken 02/09/2025 1800 by Clint Brooks RN Environmental Safety Interventions: Standard Interventions in Place Mobility Safety Interventions: Standard Interventions in Place Elimination Safety Interventions: Standard Interventions in Place Medication: Standard Interventions in Place Taken 02/09/2025 0743 by Lynnette Donald RN Consults: Pharmacy Consult for Medication Review Problem: Pain Goal: Exhibits reduction in pain to a level of acceptable comfort Outcome: Ongoing * Clint Brooks RN - 02/09/2025 8:51 PM CDT Problem: Falls/Injury-Risk of Goal: Absence of Falls/Injury Outcome: Met this shift Problem: Falls/Injury-Risk of Goal: Absence of Falls/Injury Outcome: Met this shift Problem: Pain Goal: Exhibits reduction in pain to a level of acceptable comfort Outcome: Met this shift Problem: Pain Goal: Exhibits reduction in pain to a level of acceptable comfort Outcome: Met this shift Problem: Falls/Injury-Risk of Goal: Absence of Falls/Injury Outcome: Met this shift Problem: Falls/Injury-Risk of Goal: Absence of Falls/Injury Outcome: Met this shift Problem: Mobility - Impaired Goal: Demonstrates ability to perform physical activity independently or with assistive devices as needed Outcome: Met this shift Problem: Mobility - Impaired Goal: Demonstrates ability to perform physical activity independently or with assistive devices as needed Outcome: Met this shift * Anuradha Carrero - 02/09/2025 1:58 PM CDT Discharge Planning Initial Assessment Patients chart reviewed. Patient discussed in rounds. Patient Class: Inpatient Admitting Diagnoses: Osteomyelitis (HCC) [M86.9] Admitted From: Home Living Arrangements: Spouse/significant other Support Systems: Family members Fely Barnes (ROCK) [phone] (M) Brandin Loo (SON) [phone] (M) Primary Decision Maker: Patient DME Prior to Admission: DME Agency: Anticipated Discharge Needs: Continue to assess Care Management Barriers to Discharge: None identified Care Coordination Initiated: Per H&P, pt is a 44yo female with history of Newby's disease and ongoing tobacco use with a history of spontaneous amputation of multiple digits that presented to outside hospital with wet gangrene of the right hand, with imaging concerning for osteo without presence of gas. Pt went to OR this morning for RIGHT HAND IRRIGATION AND DEBRIDEMENT, AMPUTATION OF RIGHT INDEX FINGER. SW met with pt and her daughter this afternoon. Pt shared that she lives with her boyfriend and he is supportive. Pt's daughter shared that she currently lives in [place] but pt has a lot of people looking out for her. Pt's PCP is Dr. Radha Anthony at [facility]. She does not anticipate any d/c needs. SW will follow in the event any needs arise. Care management will continue to follow. CHUCK Groves, [facility] Pager: [phone] * Bárbara Segundo RN - 02/09/2025 12:32 PM CDT PACU POSTOP END OF SHIFT SBAR S: Situation/ B: Background Patient s/p right hand irrigation and debridement and amputation of right index finger under general anesthesia. To PACU at 1149 from OR. Placed on full monitors. PMH: Buergers disease, osteomyelitis, anemia A: Assessment Incision: right hand Dressing: gauze, cast padding, narcisa Pain: 4/10 - medicated with PO and IV meds Nausea: denies BP 119/86 Pulse 83 Temp 99.1 ??F (37.3 ??C) Resp (!) 10 Ht 5' 1 (1.549 m) Wt 53.6 kg (118 lb 2.7 oz) LMP (LMP Unknown) SpO2 98% No BMI 22.33 kg/m?? Saturation level 98% on RA R: Recommendation Patient to A783 SBAR report given to SINGH Church receiving care Patient transported via bed with chart. * Barb Munoz RN - 02/09/2025 10:31 AM CDT Red vessel loop left in incision per Dr. Gutierrez. Dressing applied. * Mercedez Hui RN - 02/09/2025 12:58 AM CDT Problem: Falls/Injury-Risk of Goal: Absence of Falls/Injury Outcome: Met this shift Flowsheets Taken 02/09/2025 0036 by Mercedez Hui RN Environmental Safety Interventions: Standard Interventions in Place Mobility Safety Interventions: Standard Interventions in Place Elimination Safety Interventions: Standard Interventions in Place Medication: Standard Interventions in Place Taken 02/08/2025 0840 by Lynnette Donald RN Consults: Pharmacy Consult for Medication Review * Bernardo Ruelas RN - 02/08/2025 9:51 PM CDT Problem: Falls/Injury-Risk of Goal: Absence of Falls/Injury Outcome: Met this shift Problem: Pain Goal: Exhibits reduction in pain to a level of acceptable comfort Outcome: Met this shift * Lynnette Donald RN - 02/08/2025 3:07 PM CDT Problem: Pain Goal: Exhibits reduction in pain to a level of acceptable comfort Outcome: Met this shift Problem: Falls/Injury-Risk of Goal: Absence of Falls/Injury Outcome: Met this shift Flowsheets (Taken 02/08/2025 1506) Mobility Safety Interventions: Standard Interventions in Place * Dwight Coker RT - 02/08/2025 6:02 AM CDT EKG ordered and done. EKG done at 0603. EKG transmitted, printed, stickered and placed in chart. documented in this encounter OR Notes * OR Surgeon - Taylor Gutierrez MD - 2025 12:04 PM CDT OPERATIVE REPORT CHIEF COMPLAINT: Buerger's disease of bilateral hands SURGEON: Taylor Gutierrez MD INSPECTOR FLOOR: Pippa Putnam RN-CPSN DATE OF SERVICE: 2025 ANESTHESIA: General Endotracheal PRE-OPERATIVE DIAGNOSIS: 1. Buerger's disease of right hand 2. Osteomyelitis of right index finger status post amputation through metacarpophalangeal joint POST-OPERATIVE DIAGNOSIS: Same PROCEDURES PERFORMED: Debridement of right hand, partial resection of 2nd metacarpal TOURNIQUET TIME: 28 minutes. INDICATIONS: The patient is a 45-year-old woman with a long history of smoking and Buerger's disease affecting bilateral hands. She presented to the hospital 4 days ago with wet gangrene of the index finger and extensive subcutaneous abscess of the right hand, which was drained and the right index finger was amputated through the metacarpal phalangeal joint 2 days ago. Today, her exam is improved and she is no longer tender in the hand. She continues on empiric vancomycin and Zosyn. Her leukocytosis has resolved this morning. Due to the severity of her infection, as well as residual osteomyelitis in the second metacarpal, I recommended returning to the operating room today for a second look surgery. If there is additional nicho pus then the patient accepts the possibility of a ray amputation. She additionally accepts the risks of additional surgery which include failure to heal which may precipitatea more proximal amputation. The patient accepts these risks and wants to proceed. DESCRIPTION OF PROCEDURE: The patient was brought to the operating room and placed supine on the ORtable. Anesthesia was smoothly induced, and the airway was secured. Prophylactic IV antibiotics were given, and SCD's were placed for DVT prophlyaxis. A nonsterile tourniquet was placed at the proximal right upper extremity, taking care to protect the skin. The right upper extremity was prepped anddraped in a sterile fashion. We then performed a time-out to verify the patient and the procedure. I began by injecting the carpal tunnel with 4 cc of 0.25% bupivacaine for a median nerve block. Next I removed the sutures in the first webspace and the vessel loop drain. The patient's skin flap appears well-perfused, and is hyperemic without being frankly cellulitic. A scant amount of purulence was milked from the palmar aspect of the wound. The wound was irrigated with copious amounts of normal saline. Small amounts of turbid fluid were milked from the wound. I made the decision to resect the second metacarpal. A dorsal skin incision overlying the second metacarpal was marked then the incision was made with a #15 blade. Using cautery, the extensor mechanism was incised overlying the second metacarpal then the metacarpal was dissected free from the interosseous muscles. Using a rongeur and bone cutter, the second metacarpal was amputated through the shaft. The bone felt brittle, but not frankly necrotic. Next using the synovial rongeur, several pieces were collected from the proximal end of the metacarpal for bone culture and sent to microbiology. Now the field was irrigated with saline and hydrogen peroxide. The irrigant was film cleaner now. The skin was closed in a single layer using 4-0 nylon over a red vessel loop drain. The tourniquet was letdown after a total of 28 minutes, with good perfusion to the skin flap and remaining digits. The patient was placed in a well-padded soft bandage and turned over to the anesthesia team for emergence and extubation. SPECIMENS: Right second metacarpal for Gram stain, aerobic and anaerobic cultures SPONGE/NEEDLE/INSTRUMENT COUNTS: correct at the end of the case EBL: 1 ml CONDITION: stable to PACU POSTOPERATIVE PLAN: 1. Continue wound care as previously ordered 2. Follow patient's clinical exam and bone cultures to determine necessity for more proximal bone resection Taylor Gutierrez MD * OR Surgeon - Taylor Gutierrez MD - 02/09/2025 10:31 AM CDT OPERATIVE REPORT CHIEF COMPLAINT: Wet gangrene of right index finger SURGEON: Taylor Gutierrez MD INSPECTOR FLOOR: none DATE OF SERVICE: February 09, 2025 ANESTHESIA: General Endotracheal PRE-OPERATIVE DIAGNOSIS: 1. Clinical osteomyelitis of right index finger 2. Buerger's disease 3. Wet gangrene of right index finger POST-OPERATIVE DIAGNOSIS: Same PROCEDURES PERFORMED: 1. Incision and drainage of extensive collar-button subcutaneous abscess involving radial half of the palm 2. Disarticulation of right index finger through metacarpophalangeal joint TOURNIQUET TIME: 15 minutes. INDICATIONS: The patient is a 44-year-old smoker with longstanding Buerger's disease, who presented to [facility] 2 nights ago as a transfer from [facility] for definitive management of infected gangrene of the right index finger. The patient describes 5 days of acute cellulitis with new pus emanating from a wound on the dorsum of the index finger. She has had 24 hours of antibiotics with some improvement in her pain and swelling and ongoing pus drainage from the wound. She understands the necessity for amputation and also understands the likelihood of returning to the operating room in 2 days for additional debridement. DESCRIPTION OF PROCEDURE: The patient was brought to the operating room and placed supine on the ORtable. Anesthesia was smoothly induced, and the airway was secured. Prophylactic IV antibiotics were given, and SCD's were placed for DVT prophlyaxis. A nonsterile tourniquet was placed at the proximal right upper extremity, taking care to protect the skin. The right upper extremity was prepped anddraped in a sterile fashion. We then performed a time-out to verify the patient and the procedure. I began by elevating the right upper extremity and the tourniquet was inflated to 250 mmHg. Using iris scissors, small areas of necrotic epidermis were sharply debrided from the edges of a small full-thickness wound close to the metacarpal phalangeal joint of the index finger. The wound demonstrated exposure of the extensor mechanism. A culture swab was passed into this wound, and there was immediate egress of copious amounts of pus. The pus was passed off the field for Gram stain, aerobic and anaerobic cultures. The pocket mainly involves the dorsal and palmar aspects of the second webspace,and on the palmar side the borders of the abscess pocket reached the third webspace. On the dorsal side, the abscess pocket appeared limited to the skin over the second metacarpal. The wound edges were sharply debrided using iris scissors, and I continued the sharp incision usingthe iris scissors to come around the radial skin flap where the distal half of the index finger wasdemarcating and clearly cadaverous. The neurovascular bundles were identified on the radial and ulnar aspects of the digit. The flexor tendons were now dissected and transected with the iris scissors, as was the extensor mechanism. Next, the metacarpal phalangeal joint capsule was opened sharply toexpose the base of the distal phalanx. As I divided the intermetacarpal ligament, the index finger was fully amputated and passed off the field for permanent pathology. Now, copious amounts of pus were milked out of the wound. Most of the pus appeared to emanate from the mid palmar space. 2 L of saline were irrigated through as well as 50 cc of hydrogen peroxide. Once I was satisfied the irrigant was clear, the tourniquet was released and I assessed the perfusion of the skin and subcutaneous fat. Nonviable skin edges were sharply trimmed with the iris scissors and overall perfusion appeared reasonably good. Small areas of clearly necrotic flexor and extensor tendon were trimmed sharply with the iris scissors. I injected the patient's carpal tunnel with 4 cc of 0.25% bupivacaine for a mediannerve block. Now, the right upper extremity was elevated, the tourniquet was reinflated, and I turned my attention to the head of the metacarpal. Using a synovial rongeur, the head of the metacarpal was excised and passed off the field for Gram stain, aerobic and anaerobic cultures. The medullary canal of the second metacarpal was filled with oil, and the cortex is clearly necrotic. Now, the tourniquet was deflated. The wounds were irrigated again with peroxide followed by normal saline. The skin edges appeared reasonably healthy. Once I was satisfied there was no additional necrotic fat or pus emanating from the wound, the skin flaps were loosely approximated using 4-0 nylon in an interrupted fashion over red vessel loop drain. Now the patient's skin was washed clean. The right hand was dressed with a bulky soft dressing [place] Adaptic, dry gauze, sterile cast padding, and a 2 inch Narcisa wrap. She tolerated her procedure well and was turned over to the anesthesia team for emergence and extubation. SPECIMENS: 1. Right hand subcutaneous abscess for microbiology 2. Right second metacarpal head for microbiology SPONGE/NEEDLE/INSTRUMENT COUNTS: correct at the end of the case EBL: 2 ml CONDITION: stable to PACU POSTOPERATIVE PLAN: 1. Elevation and gentle compression overnight 2. Initiate wound care tomorrow morning 3. Return to the operating room in 2 days for second look surgery and possible ray amputation 4. Continue empiric Vancomycin and Unasyn pending culture results Taylor Gutierrez MD documented in this encounter ED Notes * Adria Hare MD - 02/07/2025 8:45 PM CDT [facility] [place] MEDICINE SERVICE DIRECT ADMISSION TRANSFER NOTE Called by Dr Lee at [place] [facility] requesting direct admission to 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 XR suspicious for osteomyelitis, no visible gas. Given Zosyn. Will also receive vancomycin. The case was discussedwith orthopedic surgery and vascular surgery at [facility]. They recommended transfer to [facility] for hand specialist evaluation. K 2.7 -- being replaced in the ED. Lactic acid normal, renal function normal. Anticipated status: Inpatient. Full History/Physical and admission orders to be completed upon arrival Please notify bed placement upon arrival at [phone] Admitting MD will be assigned after arrival Adria Hare MD [facility] [place] Medicine documented in this encounter Miscellaneous Notes * Med Reconciliation - Jeni Nina, Pharm D - 02/08/2025 11:28 AM CDT PHARMACY MEDICATION RECONCILIATION NOTE MEDICATION RECONCILIATION on admission by pharmacy has been completed. Prior to admission medications were reviewed with patient The [employer] medication list has been updated and reflected in the chart below. Please use the [employer] medication section for ordering home doses during admission. Medication related issues (discrepancies, interactions, additions, removals, changes, compliance/adherence): Added all meds. Pt reports stopping the iron two weeks ago due to constipatoin PRIOR TO ADMISSION MEDICATION LIST: Prior to Admission Medications Prescriptions Last Dose Informant Patient Reported? Taking? ferrous sulfate (FERATAB) 325 mg (65 mg iron) oral tablet Not Taking Yes No Sig: Take 1 tablet (325 mg) by mouth once daily. Patient not taking: Reported on 02/08/2025 ondansetron (ZOFRAN) 4 mg oral ODT PRN Yes Yes Sig: Dissolve 2 tablets (8 mg) in mouth every 12 (twelve) hours as needed for nausea. oxyCODONE, immediate release, (ROXICODONE) 5 mg oral tablet PRN Yes Yes Sig: Take 1 tablet (5 mg) by mouth twice a day as needed. pantoprazole (PROTONIX) 40 mg oral delayed release tablet Yes Yes Sig: Take 1 tablet (40 mg) by mouth twice a day. Facility-Administered Medications: None This patient obtains medications from Pharmacy. Thank you for the opportunity to participate in the care of this patient. Phone #:[phone] Time spent reconciling meds:15 min Location: face to face encounter documented in this encounter Plan of Treatment Scheduled Orders Name Type Priority Associated Diagnoses Orde r Schedule BUN/Creatinine ([facility]) Lab Routine Other acute osteomyelitis of right hand (HCC) Expected: 02/27/2025 (Approximate), Expires: 02/13/2026 Potassium, Serum Lab Routine Other acute osteomyelitis of right hand (HCC) Expected: 02/27/2025 (Approximate), Expires: 03/15/2025 Scheduled Referrals Name Type Priority Associated Diagnoses Orde r Schedule Follow Up with External Provider Follow Up Routine Ordered: 025 Follow Up with External Provider Follow Up Routine Ordered: 025 Follow Up with External Provider Follow Up Routine Ordered: 025 documented as of this encounter Procedures Procedure Name Priority Date/Time Associated Diagnosis Comments MAGNESIUM STAT 02/16/2025 2:35 PM CDT POTASSIUM STAT 02/16/2025 2:35 PM CDT POCT GLU METER Routine 02/16/2025 1:58 PM CDT SURGICAL PATHOLOGY Routine 02/16/2025 9: 21 AM CDT Nausea and vomiting, unspecified vomiting type Dysphagia, unspecified type EGD TRANSORAL BIOPSY SINGLE/MULTIPLE 02/16/2025 8:51 AM CDT Nausea and vomiting, unspecified vomiting type Dysphagia, unspecified type ENDOSCOPY Routine 02/16/2025 7:57 AM CDT BASIC METABOLIC PROF MAGNESIUM Routine 02/16/2025 7:06 AM CDT CBC (HGB,HCT,WBC,RBC,PLATEL ET) Routine 02/16/2025 7:06 AM CDT POCT GLU METER Routine 02/16/2025 6:36 AM CDT POCT GLU METER Routine 02/16/2025 1:47 AM CDT POTASSIUM Timed Procedure 02/15/2025 9:24 PM CDT POCT GLU METER Routine 02/15/2025 8:00 PM CDT POCT GLU METER Routine 02/15/2025 2:48 PM CDT XR ABDOMEN FLAT & UPRIGHT Routine 02/15/2025 1:38 PM CDT POCT GLU METER Routine 02/15/2025 7:51 AM CDT BASIC METABOLIC PROF MAGNESIUM Routine 02/15/2025 7:41 AM CDT VANCOMYCIN RANDOM Add On 02/15/2025 7:4 1 AM CDT LIPASE Add On 02/15/2025 7:41 AM CDT LIVER PROFILE Add On 02/15/2025 7:41 AM CDT CBC (HGB,HCT,WBC,RBC,PLATEL ET) Routine 02/15/2025 7:41 AM CDT POCT GLU METER Routine 02/15/2025 4:23 AM CDT POCT GLU METER Routine 02/15/2025 2:18 AM CDT POCT GLU METER Routine 02/14/2025 10:32 PM CDT MAGNESIUM Timed Procedure 02/14/2025 8:37 PM CDT EXTRA TUBE-EDTA Routine 02/14/2025 8:35 PM CDT POCT GLU METER Routine 02/14/2025 8:08 PM CDT POCT GLU METER Routine 02/14/2025 10:57 AM CDT POCT GLU METER Routine 02/14/2025 9:04 AM CDT POCT GLU METER Routine 02/14/2025 8:39 AM CDT BASIC METABOLIC PROF MAGNESIUM Routine 02/14/2025 6:43 AM CDT CBC (HGB,HCT,WBC,RBC,PLATEL ET) Routine 02/14/2025 6:43 AM CDT BLOOD CULTURE <5 YRS OLD OR SHORT DRAW Routine 02/14/2025 2:14 AM CDT ADMIT MRSA BY PCR Routine 02/14/2025 1:1 3 AM CDT EXTRA TUBE-EDTA Routine 02/14/2025 12:33 AM CDT BLOOD CULTURE <5 YRS OLD OR SHORT DRAW Routine 02/14/2025 12:33 AM CDT EXTRA TUBE PST Routine 02/14/2025 12:33 AM CDT XR CHEST AP PORT STAT 02/13/2025 10:13 PM CDT POTASSIUM Timed Procedure 02/13/2025 9:55 PM CDT POTASSIUM Timed Procedure 02/13/2025 2:48 PM CDT BASIC METABOLIC PROF MAGNESIUM Routine 02/13/2025 7:03 AM CDT CBC (HGB,HCT,WBC,RBC,PLATEL ET) Routine 02/13/2025 7:03 AM CDT BASIC METABOLIC PROF MAGNESIUM Routine 02/12/2025 7:22 AM CDT CBC (HGB,HCT,WBC,RBC,PLATEL ET) Routine 02/12/2025 7:22 AM CDT CULT-ANAEROBE Routine 2025 1:03 PM CDT Gangrene, not elsewhere classified (HCC) CULT-AEROBIC Routine 2025 1:03 PM CDT Gangrene, not elsewhere classified (HCC) CULT-AEROBIC Routine 2025 1:03 PM CDT Gangrene, not elsewhere classified (HCC) INCISION & DRAINAGE ABSCESS SIMPLE/SINGLE 2025 12:22 PM CDT Gangrene, not elsewhere classified (HCC) BASIC METABOLIC PROF MAGNESIUM STAT 2025 10:15 AM CDT PROCALCITONIN Routine 2025 7:14 AM CDT CBC (HGB,HCT,WBC,RBC,PLATEL ET) Routine 2025 7:14 AM CDT BASIC METABOLIC PROF MAGNESIUM Routine 02/10/2025 7:29 AM CDT CBC (HGB,HCT,WBC,RBC,PLATEL ET) Routine 02/10/2025 7:29 AM CDT CULT-ANAEROBE Routine 02/09/2025 11:05 AM CDT Gangrene (HCC) CULT-AEROBIC Routine 02/09/2025 11:05 AM CDT Gangrene (HCC) CULT-AEROBIC Routine 02/09/2025 11:05 AM CDT Gangrene (HCC) CULT-ANAEROBE Routine 02/09/2025 11:03 AM CDT Gangrene (HCC) CULT-AEROBIC Routine 02/09/2025 11:03 AM CDT Gangrene (HCC) CULT-AEROBIC Routine 02/09/2025 11:03 AM CDT Gangrene (HCC) SURGICAL PATHOLOGY Routine 02/09/2025 10:57 AM CDT Gangrene (HCC) AMPUTATION FINGER(S) Class D 02/09/2025 10:07 AM CDT Gangrene (HCC) IRRIGATION AND DEBRIDEMENT HAND Class D 02/09/2025 10:07 AM CDT Gangrene (HCC) BASIC METABOLIC PROF MAGNESIUM Routine 02/09/2025 7:23 AM CDT VANCOMYCIN RANDOM Routine 02/09/2025 7:2 3 AM CDT CBC (HGB,HCT,WBC,RBC,PLATEL ET) Routine 02/09/2025 7:23 AM CDT POTASSIUM Timed Procedure 02/08/2025 9:32 PM CDT HCG URINE Routine 02/08/2025 8:42 AM CDT PROCALCITONIN Add On 02/08/2025 7:24 AM CDT BASIC METABOLIC PROF MAGNESIUM Routine 02/08/2025 7:24 AM CDT CBC (HGB,HCT,WBC,RBC,PLATEL ET) Routine 02/08/2025 7:24 AM CDT ELECTROCARDIOGRAM Routine 02/08/2025 5:5 7 AM CDT MAGNESIUM Routine 02/08/2025 5:24 AM CDT CREATININE EGFR Routine 02/08/2025 5:24 AM CDT POTASSIUM Routine 02/08/2025 5:24 AM CDT ABORH CONFIRM (LAB USE ONLY) Routine 02/08/2025 5:04 AM CDT LACTIC ACID STAT 02/08/2025 1:48 AM CDT TYPE AND SCREEN STAT 02/08/2025 1:45 AM CDT BASIC METAB PROFILE STAT 02/08/2025 1 :45 AM CDT C REACTIVE PROTEIN STAT 02/08/2025 1: 45 AM CDT CBC/DIFF STAT 02/08/2025 1:45 AM CDT XR OUTSIDE UPPER EXTREMITY STUDY Routine 02/07/2025 12:00 AM CDT documented in this encounter Results * Magnesium (02/16/2025 2:35 PM CDT) Only the most recent of3 resultswithin the time period is included. Magnesium 1.9 1.6 - 2.6 mg/dL 02/16/2025 3:[address] [facility] Blood Venipuncture / Unknown 02/16/2025 2:35 PM CDT 02/16/2025 2:38 PM CDT us Molly Epps PA-C CHEMISTRY ORDERABLE Final Result Performing Organization Address [facility] de Phone Number [facility] [address] [place] [phone] * Potassium (02/16/2025 2:35 PM CDT) Only the most recent of6 resultswithin the time period is included. Potassium 4.0 3.4 - 5.1 mmol/L 02/16/2025 2:59 PM CDT [facility] Blood Venipuncture / Unknown 02/16/2025 2:35 PM CDT 02/16/2025 2:38 PM CDT Mollyshabbir Epps PA-C CHEMISTRY ORDERABLE Final Result Performing Organization Address [facility] de Phone Number [facility] [address] [place] [phone] * (ABNORMAL) POCT Glucose Meter (02/16/2025 1:58 PM CDT) Only the most recent of13 resultswithin the time period is included. Pathologist [facility] GLUCOSE WB METER 156(H) 60 - 100 mg/dL 02/16/2025 2:16 PM CDT [facility] Blood 02/16/2025 1:58 PM CDT 02/16/2025 2:16 PM CDT Michelle Pickering MD LAB POINT OF CARE TEST RESULTS F inal Result Performing Organization Address [facility] de Phone Number [facility] [address] [place] [address] * Surgical Pathology (02/16/2025 9:21 AM CDT) Only the most recent of2 resultswithin the time period is included. Case Report Surgical Pathology Case: [id number] Authorizing Provider: Chava Erickson MD Collected: 02/16/2025 09:21 AM Ordering Location: [facility] Received: 02/18/2025 09:11 AM Hospital Advanced Procedure Unit Pathologist: Christian Marquis MD Specimens: A) - Stomach (Specify) B) - Esophagus 02/19/2025 3:31 PM CDT [facility] Final Diagnosis A. Stomach, biopsy: Mild chronic inactive gastritis. Helicobacter pylori-like organisms are not identified on H&E stain. Negative for goblet cell metaplasia, dysplasia and malignancy. B. Esophagus, biopsy: Reactive squamous mucosa with fibrinopurulent exudate (ulcerative esophagitis). Viral cytopathic effect is not identified. Fungal organisms are identified. Negative for dysplasia, and malignancy. 02/19/2025 3:31 PM CDT [facility] at 1531 CDT Comment The fungal organisms are composed of yeast forms, suggestive of marta species. 02/19/2025 3:31 PM CDT [facility] Gross Description A. Stomach biopsy: Six up to 0.3 cm. IT-1. B. Esophagus biopsy: Four up to 0.3 cm. IT-1. 02/19/2025 3:31 PM CDT [facility] Microscopic Description The final diagnosis is based on the microscopic examination of all the slides. Block B is stained with PAS for fungal organisms. Fungal organisms are identified on the edge of the fibrinopurulent exudate and the surface of the squamous mucosa. 02/19/2025 3:31 PM CDT [facility] Tissue STOMACH STRUCTURE / Unknown 02/16/2025 9:21 AM CDT 02/18/2025 9:11 AM CDT Comment:Pre-op diagnosis: Nausea and vomiting, unspecified vomiting type [R11.2] Dysphagia, unspecified type [R13.10] Tissue specimen (specimen) ESOPHAGEAL STRUCTURE / Unknown 02/16/2025 9:23 AM CDT 02/18/2025 9:11 AM CDT Comment:Pre-op diagnosis: Nausea and vomiting, unspecified vomiting type [R11.2] Dysphagia, unspecified type [R13.10] us Chava Erickson MD PATHOLOGY/CYTOLOGY ORDERA BLE Final Result [facility] [address] [id number] * Endoscopy (02/16/2025 7:57 AM CDT) 02/16/2025 7:57 AM CDT Narrative TEST - 02/16/2025 10:00 AM CDT [facility] Patient Name: Hannah Loo Procedure Date: 02/16/2025 7:57 AM Date of : 1980 Note Status: Finalized Attending MD: Chava Erickson MD, Procedure: Upper GI endoscopy Indications: Iron deficiency anemia Providers: Chava Erickson MD, Nellie Hastings, SINGH, Laura Dwyer, SINGH, Chava Erickson MD Requesting Provider: Medicines: General Anesthesia Complications: No immediate complications. Procedure: Pre-Anesthesia Assessment: - Prior to the procedure, a History and Physical was performed, and patient medications and allergies were reviewed. The patient is competent. The risks and benefits of the procedure and the sedation options and risks were discussed with the patient. All questions were answered and informed consent was obtained. Patient identification and proposed procedure were verified by the physician in the pre-procedure area. Mental Status Examination: alert and oriented. Airway Examination: normal oropharyngeal airway and neck mobility. Respiratory Examination: clear to auscultation. CV Examination: normal. Prophylactic Antibiotics: The patient does not require prophylactic antibiotics. Prior Anticoagulants: The patient has taken no anticoagulant or antiplatelet agents. ASA Grade Assessment: III - A patient with severe systemic disease. After reviewing the risks and benefits, the patient was deemed in satisfactory condition to undergo the procedure. The anesthesia plan was to use general anesthesia. Immediately prior to administration of medications, the patient was re-assessed for adequacy to receive sedatives. The heart rate, respiratory rate, oxygen saturations, blood pressure, adequacy of pulmonary ventilation, and response to care were monitored throughout the procedure. The physical status of the patient was re-assessed after the procedure. Informed consent was obtained after discussion of the procedure including its risks of perforation, bleeding, potential need for surgery, potential complications associated with conscious sedation, and possibility of an incomplete procedure or missed lesion. The endoscope was passed under direct vision. Throughout the procedure, the patient's blood pressure, pulse, and oxygen saturations were monitored continuously. The Endoscope was introduced through the mouth, and advanced to the third part of duodenum. The upper GI endoscopy was accomplished without difficulty. The patient tolerated the procedure well. Findings: Esophagogastric landmarks were identified: the gastroesophageal junction was found at 35 cm and the site of the diaphragmatic hiatus was found at 35 cm from the incisors. Esophageal lumen appeared somewhat stenotic particular in the upper esophagus. The gastroscope was passed without difficulty though a superficial mucosal rent was noted around 18 cm from the incisors after passage. LA Grade D (one or more mucosal breaks involving at least 75% of esophageal circumference) esophagitis with no bleeding was found 26 to 35 cm from the incisors. Biopsies were taken with a cold forceps for histology. Excessive fluid was found in the entire examined stomach. Roughly 1 L of fluid was suctioned. There was a pyloric channel ulceration, nearly circumferential, clean-based. There was a cratered 2 cm ulceration in the antrum without stigmata.Biopsies were taken with a cold forceps for histology. Patchy severely erythematous mucosa without active bleeding and with no stigmata of bleeding was found in the entire duodenum. One non-bleeding cratered duodenal ulcer with no stigmata of bleeding was found in the second portion of the duodenum. The lesion was 15 mm in largest dimension. In addition there were multiple focal nonmalignant inflammatory appearing strictures throughout the duodenum. One such stricture was just just distal to this larger ulceration. There is a large amount of retained fluid including semisolid fluid which impaired some visualization as well. Impression: - Esophagogastric landmarks identified. Mild to moderate stenosis of esophagus - LA Grade D esophagitis with no bleeding. Biopsied. - Excessive gastric fluid. Biopsied. Gastric ulcerations - Erythematous duodenopathy. Duodenal ulcerations with several focal strictures. Recommendation: - Return patient to hospital ma for ongoing care. ? Avoid NSAIDs ? PPI twice daily indefinitely ? Tobacco cessation is of utmost importance ? Will repeat EGD in 8 weeks for further visualization and biopsies ? Recommend pur?ed diet to soft mechanical diet at this time. ? Will sign off Procedure Code(s): --- Professional --- 41805, Esophagogastroduodenoscopy, flexible, transoral; with biopsy, single or multiple Diagnosis Code(s): --- Professional --- K20.90, Esophagitis, unspecified without bleeding K31.89, Other diseases of stomach and duodenum K26.9, Duodenal ulcer, unspecified as acute or chronic, without hemorrhage or perforation CPT copyright 2021 [employer]. All rights reserved. The codes documented in this report are preliminary and upon double corner cutter review may be revised to meet current compliance requirements. MD Chava Hua MD 02/16/2025 10:00:36 AM This report has been signed electronically.Chava Erickson MD Number of Addenda: 0 Note Initiated On: 02/16/2025 7:57 AM [address] [id number] Procedure Note Chava Erickson MD - 02/16/2025 [facility] Patient Name: Hannah Loo Procedure Date: 02/16/2025 7:57 AM Date of : 1980 Note Status: Finalized Attending MD: Chava Erickson MD, Procedure: Upper GI endoscopy Indications: Iron deficiency anemia Providers: Chava Erickson MD, Nellie Hastings RN, Laura Dwyer RN, Chava Erickson MD Requesting Provider: Medicines: General Anesthesia Complications: No immediate complications. Procedure: Pre-Anesthesia Assessment: - Prior to the procedure, a History and Physical was performed, and patient medications and allergies were reviewed. The patient is competent. The risks and benefits of the procedure and the sedation options and risks were discussed with the patient. All questions were answered and informed consent was obtained. Patient identificationand proposed procedure were verified by the physician in thepre-procedure area. Mental Status Examination: alert and oriented. AirwayExamination: normal oropharyngeal airway and neck mobility. RespiratoryExamination: clear to auscultation. CV Examination: normal. ProphylacticAntibiotics: The patient does not require prophylactic antibiotics. Prior Anticoagulants: The patient has taken no anticoagulant orantiplatelet agents. ASA Grade Assessment: III - A patient with severe systemic disease. After reviewing the risks and benefits, the patient wasdeemed in satisfactory condition to undergo the procedure. The anesthesiaplan was to use general anesthesia. Immediately prior to administration of medications, the patient was re-assessed for adequacy to receive sedatives. The heart rate, respiratory rate, oxygen saturations,blood pressure, adequacy of pulmonary ventilation, and response to carewere monitored throughout the procedure. The physical status of thepatient was re-assessed after the procedure. Informed consent was obtained after discussion of the procedure including its risks of perforation, bleeding, potential need for surgery, potential complications associated with conscious sedation,and possibility of an incomplete procedure or missed lesion. Theendoscope was passed under direct vision. Throughout the procedure, thepatient's blood pressure, pulse, and oxygen saturations were monitored continuously. The Endoscope was introduced through the mouth, and advanced to the third part of duodenum. The upper GI endoscopy was accomplished without difficulty. The patient tolerated the procedure well. Findings: Esophagogastric landmarks were identified: the gastroesophagealjunction was found at 35 cm and the site of the diaphragmatic hiatus was foundat 35 cm from the incisors. Esophageal lumen appeared somewhat stenotic particular in the upper esophagus. The gastroscope was passed without difficulty though a superficial mucosal rent was noted around 18 cmfrom the incisors after passage. LA Grade D (one or more mucosal breaks involving at least 75% of esophageal circumference) esophagitis with no bleeding was found 26to 35 cm from the incisors. Biopsies were taken with a cold forceps for histology. Excessive fluid was found in the entire examined stomach. Roughly 1 Lof fluid was suctioned. There was a pyloric channel ulceration, nearly circumferential, clean-based. There was a cratered 2 cm ulceration in the antrum without stigmata.Biopsies were taken with a cold forcepsfor histology. Patchy severely erythematous mucosa without active bleeding and withno stigmata of bleeding was found in the entire duodenum. One non-bleeding cratered duodenal ulcer with no stigmata of bleeding was found in the second portion of the duodenum. The lesion was 15 mmin largest dimension. In addition there were multiple focal nonmalignant inflammatory appearing strictures throughout the duodenum. One such stricture was just just distal to this larger ulceration. There is a large amount of retained fluid including semisolid fluid whichimpaired some visualization as well. Impression: - Esophagogastric landmarks identified. Mild to moderate stenosis of esophagus - LA Grade D esophagitis with no bleeding. Biopsied. - Excessive gastric fluid. Biopsied. Gastric ulcerations - Erythematous duodenopathy. Duodenal ulcerations with several focal strictures. Recommendation: - Return patient to hospital ma for ongoing care. ? Avoid NSAIDs ? PPI twice daily indefinitely ? Tobacco cessation is of utmost importance ? Will repeat EGD in 8 weeks for further visualization and biopsies ? Recommend pur?ed diet to soft mechanical diet at this time. ? Will sign off Procedure Code(s): --- Professional --- 35278, Esophagogastroduodenoscopy, flexible, transoral; with biopsy, single or multiple Diagnosis Code(s): --- Professional --- K20.90, Esophagitis, unspecified without bleeding K31.89, Other diseases of stomach and duodenum K26.9, Duodenal ulcer, unspecified as acute or chronic, without hemorrhage or perforation CPT copyright 2021 [employer]. All rights reserved. The codes documented in this report are preliminary and upon double corner cutter reviewmay be revised to meet current compliance requirements. MD Chava Hua MD 02/16/2025 10:00:36 AM This report has been signed electronically.Chava Erickson MD Number of Addenda: 0 Note Initiated On: 02/16/2025 7:57 AM [address] [place] [address] Chava Erickson MD PROCEDURE ORDERABLE Final Result TEST * (ABNORMAL) Basic Metabolic Profile Magnesium (02/16/2025 7:06 AM CDT) Only the most recent of9 resultswithin the time period is included. Sodium 141 136 - 145 mmol/L 02/16/2025 7:56 AM [facility] Potassium 3.1(L) 3.4 - 5.1 mmol/L 02/16/2025 7:56 AM [facility] Chloride 109(H) 98 - 108 mmol/L 02/16/2025 7:56 AM [facility] Carbon Dioxide 30 20 - 31 mmol/L 02/16/2025 7:56 AM [facility] BUN (Urea Nitro) <5(L) 9 - 23 mg/dL 02/16/2025 7:56 AM [facility] Creatinine 0.53(L) 0.55 - 1.02 mg/dL 02/16/2025 7:56 AM [facility] Est GFR (CKD-EPI) >60.00 >60.00 mL/min/1. 73m2 02/16/2025 7:56 AM [facility] Comment:Calculation based on the Chronic Kidney Disease Epidemiology Collaboration (CKD-EPI) equation refit without adjustment for race. Glucose 90 74 - 106 mg/dL 02/16/2025 7:56 AM [facility] Calcium, Serum 7.4(L) 8.7 - 10.4 mg/dL 02/16/2025 7:56 AM [facility] Anion Gap 2.0 0.0 - 15.0 mmol/L 02/16/2025 7:56 AM [facility] Magnesium 1.5(L) 1.6 - 2.6 mg/dL 02/16/2025 7:56 AM [facility] Blood Venipuncture / Unknown 02/16/2025 7:06 AM T 02/16/2025 7:28 AM CDT us Yany Ingram MD CHEMISTRY ORDERABLE Final Result [facility] [address] [place] [address] * (ABNORMAL) CBC (HGB,HCT,WBC,RBC,Platelet) (02/16/2025 7:06 AM CDT) Only the most recent of9 resultswithin the time period is included. WBC 5.4 4.3 - 10.8 K/uL 02/16/2025 7:36 AM [facility] RBC 2.14(L) 4.20 - 5.40 M/uL 02/16/2025 7:36 AM [facility] Hemoglobin 7.6(L) 12.0 - 16.0 gm/dL 02/16/2025 7:36 AM [facility] Hematocrit 24.2(L) 36.0 - 48.0 % 02/16/2025 7:36 AM CDT [facility] MCV 113(H) 80 - 100 fL 02/16/2025 7:36 AM CDT [facility] MCH 36(H) 27 - 33 pg 02/16/2025 7:36 AM CDT [facility] MCHC 31(L) 33 - 36 gm/dL 02/16/2025 7:36 AM CDT [facility] RDW 14.7(H) 11.5 - 14.5 % 02/16/2025 7:36 AM CDT [facility] Platelet Count 219 150 - 400 K/UL 02/16/2025 7:36 AM CDT [facility] MPV 9.9 6.5 - 12 fL 02/16/2025 7:36 AM CDT [facility] Blood Venipuncture / Unknown 02/16/2025 7:06 AM CDT 02/16/2025 7:29 AM CDT Yany Ingram MD HEMATOLOGY ORDERABLE Hailee merchant Result [facility] [address], [place] [id number] * XR ABDOMEN FLAT & UPRIGHT (02/15/2025 1:38 PM CDT) Anatomical Region Laterality Modality ABD/Pelvis Computed Radiogr aphy 02/15/2025 1:43 PM CDT Impressions 02/15/2025 1:47 PM CDT IMPRESSION: There are postsurgical changes consistent with cholecystectomy. There is no free intraperitoneal air. There is an air-fluid level within the stomach. There is a paucity of bowel gas. There are few loops of nondilated bowel in the left pelvis with air-fluid levels. There are patchy infiltrates of the lung bases. REPORT SIGNED BY DR. Diane Elizalde Narrative 02/15/2025 1:47 PM CDT XR ABDOMEN FLAT & UPRIGHT DATE: 02/15/2025 13:33 CLINICAL DATA: Pain. Acute osteomyelitis of the right hand. Abdominal pain. COMPARISON: None FINDINGS/ Procedure Note Diane Elizalde MD - 02/15/2025 XR ABDOMEN FLAT & UPRIGHT DATE: 02/15/2025 13:33 CLINICAL DATA: Pain. Acute osteomyelitis of the right hand. Abdominalpain. COMPARISON: None FINDINGS/ IMPRESSION IMPRESSION: There are postsurgical changes consistent withcholecystectomy. There is no free intraperitoneal air. There is anair-fluid level within the stomach. There is a paucity of bowel gas. Thereare few loops of nondilated bowel in the left pelvis with air-fluidlevels. There are patchy infiltrates of the lung bases. REPORT SIGNED BY DR. Diane Elizalde Molly Epps PA-C XRAY ORDERABLE Final Res ult * Lipase (02/15/2025 7:41 AM CDT) Pathologist [facility] Lipase 53 12 - 53 U/L 02/15/2025 3:37 PM CDT [facility] Blood Venipuncture / Unknown 02/15/2025 7:41 AM CDT 02/15/2025 8:10 AM CDT Molly Epps PA-C CHEMISTRY ORDERABLE Final Result Performing Organization Address City/State/[facility] Co de Phone Number [facility] [address] [place] [address] * (ABNORMAL) Liver Profile (02/15/2025 7:41 AM CDT) Pathologist [facility] ALT 16 7 - 40 U/L 02/15/2025 9:53 AM CDT [facility] Alkaline Phosphatase 528(H) 46 - 116 U/L 02/15/2025 9:53 AM CDT [facility] AST (SGOT) 11(L) 13 - 40 U/L 02/15/2025 9:53 AM T [facility] Protein Total 4.8(L) 5.7 - 8.2 g/dL 02/15/2025 9:53 AM CDT [facility] Albumin 1.5(L) 3.4 - 5.0 g/dL 02/15/2025 9:53 AM T [facility] Bilirubin-Direct <0.10 <0.40 mg/dL 02/15/2025 9:53 AM CDT [facility] Bilirubin-Total 0.20(L) 0.30 - 1.20 mg/dL 02/15/2025 9:53 AM CDT [facility] Blood Venipuncture / Unknown 02/15/2025 7:41 AM CDT 02/15/2025 8:10 AM CDT us Molly Epps PA-C CHEMISTRY ORDERABLE Final Result Performing Organization Address City/[facility] Co de Phone Number [facility] [address] [place] [address] * Vancomycin - Random (02/15/2025 7:41 AM CDT) Only the most recent of2 resultswithin the time period is included. Vancomycin Random 22.1 11.0 - 45.0 ug/mL 02/15/2025 9:29 AM CDT [facility] Blood Venipuncture / Unknown 02/15/2025 7:41 AM CDT 02/15/2025 8:10 AM CDT us Keila Suh D CHEMISTRY ORDERABLE F inal Result Performing Organization Address City/[facility] Co de Phone Number [facility] [address] [place] [address] * Extra Tube-EDTA (Lab Use Only) (02/14/2025 8:35 PM CDT) Only the most recent of2 resultswithin the time period is included. Blood 02/14/2025 8:35 PM CDT 02/14/2025 8:44 PM CDT us Moises Cm MD HEMATOLOGY ORDERABLE Final Result Performing Organization Address City/[facility] Co de Phone Number [facility] [address] [place] [address] * Blood Aerobic (1 Bottle) Culture (02/14/2025 2:14 AM CDT) Only the most recent of2 resultswithin the time period is included. Blood Culture (<5 Years Old/Short Draw) No growth 5 days. 02/19/2025 2:20 AM CDT [facility] Blood VENOUS BLOOD SPECIMEN / Unknown 02/14/2025 2:14 AM CDT 02/14/2025 2:14 AM CDT Michelle Pickering MD MICROBIOLOGY ORDERABLE Final Res ult Performing Organization Address City/[facility]/ZIP Co de Phone Number [facility] [address] [place] [address] * (ABNORMAL) Admit MRSA by PCR (For IP Use Only) (02/14/2025 1:13 AM CDT) Pathologist [facility] [place] Admit MRSA by PCR Methicillin Resistant Staph. Aureus (MRSA) detected by PCR.(A) No Methicillin Resistant Staph. Aureus (MRSA) detected by PCR. 02/14/2025 4:13 AM CDT [facility] Nasal NASAL STRUCTURE / Unknown 02/14/2025 1:13 AM CDT 02/14/2025 1:40 AM CDT Danielle Carrero DO MICROBIOLOGY ORDERABLE Final Result Performing Organization Address City/[facility]/ZIP Co de Phone Number [facility] [address] [place] [address] * Extra Tube PST (Lab Use Only) (02/14/2025 12:33 AM CDT) Blood 02/14/2025 12:3 3 AM CDT 02/14/2025 1:09 AM CDT Michelle Pickering MD CHEMISTRY ORDERABLE Final Result Performing Organization Address City/[facility]/ZIP Co de Phone Number [facility] [address] [place] [address] * XR CHEST AP PORT (02/13/2025 10:13 PM CDT) Anatomical Region Laterality Modality Chest Computed Radiogr aphy 02/13/2025 10:3 0 PM CDT Impressions 02/13/2025 10:34 PM CDT IMPRESSION: Right lung infiltrate. REPORT SIGNED BY Rico Cunningham MD Narrative 02/13/2025 10:34 PM CDT EXAM: XR CHEST AP PORT DATE: 02/13/2025 22:13 INDICATION: Postop finger amputation for gangrene with osteomyelitis. Cough. COMPARISON: None TECHNIQUE: AP portable chest FINDINGS: Hazy infiltrate in the right mid and lower lung. No dense consolidation or pleural effusion. Shallow lung expansion. Cardiomediastinal silhouette is normal. Procedure Note Rico Cunningham MD - 02/13/2025 EXAM: XR CHEST AP PORT DATE: 02/13/2025 22:13 INDICATION: Postop finger amputation for gangrene with osteomyelitis.Cough. COMPARISON: None TECHNIQUE: AP portable chest FINDINGS: Hazy infiltrate in the right mid and lower lung. No dense consolidation orpleural effusion. Shallow lung expansion. Cardiomediastinal silhouette isnormal. IMPRESSION IMPRESSION: Right lung infiltrate. REPORT SIGNED BY Rico Cunningham MD Danielle Carrero DO XRAY ORDERABLE Final Result * Culture-Anaerobe (2025 1:03 PM CDT) Only the most recent of3 resultswithin the time period is included. CULT-ANAEROBE No anaerobic growth in 5 days. TONIO 02/16/2025 9:[address] [facility] Site-Microbiology STRUCTURE OF RIGHT INDEX FINGER / Unknown 2025 1:03 PM CDT Comment:Pre-op diagnosis: Gangrene, not elsewhere classified (HCC) [I96] Tyalor Gutierrez MD MICROBIOLOGY ORDERABLE Final Result [facility] [address] [address] * (ABNORMAL) Culture-Aerobic (2025 1:03 PM CDT) Only the most recent of3 resultswithin the time period is included. Aerobic Culture Few colonies of Methicillin resistant Staphylococcus aureus (MRSA)(A) TONIO 02/14/2025 6:56 AM CDT [facility] Aerobic Culture One colony of Escherichia coli(A) TONIO 02/14/2025 6:56 AM CDT [facility] Gram Stain Result No bacteria seen. 02/14/2025 6:56 AM CDT [facility] Gram Stain Result No WBC's seen / LPF 02/14/2025 6:56 AM T [facility] Site-Microbiology STRUCTURE OF RIGHT INDEX FINGER / Unknown 2025 1:03 PM CDT Comment:Pre-op diagnosis: Gangrene, not elsewhere classified (HCC) [I96] Narrative Organism Antibiotic Method Susceptibility Methicillin resistant Staphylococcus aureus (MRSA) Clindamycin TONIO 0.25: Sensitive Methicillin resistant Staphylococcus aureus (MRSA) Doxycycline TONIO <=0.50: Sensitive Methicillin resistant Staphylococcus aureus (MRSA) Erythromycin TONIO >=8.00: Resistant Methicillin resistant Staphylococcus aureus (MRSA) Oxacillin TONIO >=4.00: Resistant Methicillin resistant Staphylococcus aureus (MRSA) Rifampin TONIO <=0.50: Sensitive Methicillin resistant Staphylococcus aureus (MRSA) Tetracycline TONIO <=1.00: Sensitive Methicillin resistant Staphylococcus aureus (MRSA) Trimethoprim/Sulfamethoxazol e TONIO <=10: Sensitive Methicillin resistant Staphylococcus aureus (MRSA) Vancomycin TONIO 1.00: Sensitive Escherichia coli Ampicillin TONIO <=2.00: Sensitive Escherichia coli Ampicillin/Sulbactam TONIO <=2: Sensitive Escherichia coli Ceftriaxone TONIO <=0.25: Sensitive Escherichia coli Ertapenem TONIO <=0.12: Sensitive Escherichia coli Gentamicin TONIO <=1.00: Sensitive Escherichia coli Levofloxacin TONIO <=0.12: Sensitive Escherichia coli Meropenem TONIO <=0.25: Sensitive Escherichia coli Piperacillin/Tazobactam TONIO <=4: Sensitive Escherichia coli Trimethoprim/Sulfame thoxazol e TONIO <=20: Sensitive Taylor Gutierrez MD MICROBIOLOGY ORDERABLE Final Result [facility] [address] [place] [address] * (ABNORMAL) Procalcitonin (2025 7:14 AM CDT) Only the most recent of2 resultswithin the time period is included. Procalcitonin 4.22(H) <=0.05 ng/mL 2025 8:03 AM CDT [facility] Blood Capillary / Unknown 2025 7:14 AM CDT 2025 7:22 AM CDT Narrative [facility] - 2025 8:03 AM CDT PROCALCITONIN REFERENCE RANGE <0.1 ng/mL: Bacterial infection very unlikely, antibiotics strongly discouraged. 0.1-0.25 ng/mL: Bacterial infection unlikely, antibiotics discouraged. 0.25-0.5 ng/mL: Local bacterial infection likely, antibiotics recommended. There is a low risk of progression to severe systemic infection (severe sepsis/septic shock). 0.5-2.0 ng/mL: Bacterial infection is very likely and antibiotics are strongly recommended. Systemic infection is possible. There is a moderate risk for progression to severe systemic infection or sepsis. Repeat testing in 6-24 hrs should be considered to evaluate further for sepsis. >2 ng/mL: Systemic infection is likely. There is a high risk for progression to severe systemic infection or sepsis. >10 ng/mL: Level almost exclusive due to severe bacterial sepsis. High likelihood of severe sepsis or septic shock. us Carlene Rosen PA-C CHEMISTRY ORDERABLE Fi nal Result [facility] [address] [address] * HCG Urine (02/08/2025 8:42 AM CDT) hCG Urine Negative Negative 02/08/2025 8:53 AM CDT [facility] Urine URINE SPECIMEN / Unknown 02/08/2025 8:42 AM CDT 02/08/2025 8:46 AM CDT us Yany Ingram MD URINE ORDERABLE Final Res ult Performing Organization Address City/[facility] Co de Phone Number [facility] [address] [place] [address] * Electrocardiogram (02/08/2025 5:57 AM CDT) EKG HVI YENNI Comment: [facility] Test Date: 2025-02-08 Pat Name: HANNAH LOO Department: A7 Room: [facility] Gender: F 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1980 Requested By: YANY INGRAM MD Order Number: [id number] Reading MD: Meagan Torres MD Measurements Intervals [place] Rate: 95 P: 74 NM: 140 QRS: 24 QRSD: 95 T: 60 QT: 339 QTc: 391 Interpretive Statements SINUS RHYTHM LOW QRS VOLTAGE IN PRECORDIAL LEADS [QRS DEFLECTION < 1.0 mV IN CHEST LEADS] SEPTAL MYOCARDIAL INFARCTION [40+ ms Q WAVE IN V1/V2], OF INDETERMINATE AGE ABNORMAL ECG No previous ECG available for comparison Electronically Signed On 02-13-2025 22:13:54 CDT by Meagan Torres MD 02/08/2025 5:57 AM CDT us Yany Ingram MD EKG ORDERABLE Final Res ult Performing Organization Address City/[facility]/ZIP Co de Phone Number [facility] [address] [place] [address] * (ABNORMAL) Creatinine eGFR (02/08/2025 5:24 AM CDT) Creatinine 0.31(L) 0.55 - 1.02 mg/dL 02/08/2025 7:25 AM CDT [facility] Est GFR (CKD-EPI) >60.00 >60.00 mL/min/1. 73m2 02/08/2025 7:25 AM CDT [facility] Comment:Calculation based on the Chronic Kidney Disease Epidemiology Collaboration (CKD-EPI) equation refit without adjustment for race. Blood Venipuncture / Unknown 02/08/2025 5:24 AM CDT 02/08/2025 5:58 AM CDT us Yany Ingram MD CHEMISTRY ORDERABLE Final Result Performing Organization Address City/[facility] [place] [address] * ABORh Confirm (Lab Use Only) (02/08/2025 5:04 AM CDT) Group and Rh A Positive 02/08/2025 6:51 AM CDT [facility] Blood 02/08/2025 5:04 AM CDT 02/08/2025 5:45 AM CDT us Yany Ingram MD BLOOD BANK ORDERABLE Hailee l Result Performing Organization Address City/[facility] Co de Phone Number [facility] [address] [place] [id number] [place] [address] * Lactic Acid (02/08/2025 1:48 AM CDT) Pathologist [facility] Lactic Acid 0.8 0.7 - 2.1 mmol/L 02/08/2025 1:49 AM CDT [facility] Blood 02/08/2025 1:48 AM CDT 02/08/2025 1:48 AM CDT us Yany Ingram MD CHEMISTRY ORDERABLE Final Result Performing Organization Address City/[facility]/ZIP Co de Phone Number [facility] [address] [place] [address] * Type and Screen (02/08/2025 1:45 AM CDT) Pathologist [facility] Group and Rh A Positive 02/08/2025 2:49 AM CDT [facility] Antibody Screen Negative 02/08/2025 2:49 AM CDT [facility] Blood 02/08/2025 1:45 AM CDT 02/08/2025 1:52 AM CDT Yany Ingram MD BLOOD BANK ORDERABLE Edit ed Result - Final Performing Organization Address [facility] Co de Phone Number [facility] [address] [place] [address] [facility] [address] [place] [address] * (ABNORMAL) C-Reactive Protein (02/08/2025 1:45 AM CDT) [facility] C Reactive Protein 8.2(H) <=0.5 mg/dL 02/08/2025 2:25 AM CDT [facility] Blood 02/08/2025 1:45 AM CDT 02/08/2025 1:52 AM CDT us Yany Ingram MD IMMUNOLOGY ORDERABLE Hailee l Result Performing Organization Address [facility]/ZIP Co de Phone Number [facility] [address] [place] [address] * (ABNORMAL) Basic Metabolic Profile (02/08/2025 1:45 AM CDT) [facility] Sodium 139 136 - 145 mmol/L 02/08/2025 2:25 AM CDT [facility] Potassium 3.5 3.4 - 5.1 mmol/L 02/08/2025 2:25 AM CDT [facility] Chloride 107 98 - 108 mmol/L 02/08/2025 2:25 AM T [facility] Carbon Dioxide 28 20 - 31 mmol/L 02/08/2025 2:25 AM [facility] BUN (Urea Nitro) 8(L) 9 - 23 mg/dL 02/08/2025 2:25 AM [facility] Creatinine 0.28(L) 0.55 - 1.02 mg/dL 02/08/2025 2:25 AM [facility] Est GFR (CKD-EPI) >60.00 >60.00 mL/min/1. 73m2 02/08/2025 2:25 AM [facility] Comment:Calculation based on the Chronic Kidney Disease Epidemiology Collaboration (CKD-EPI) equation refit without adjustment for race. Glucose 77 74 - 106 mg/dL 02/08/2025 2:25 AM [facility] Calcium, Serum 8.0(L) 8.7 - 10.4 mg/dL 02/08/2025 2:25 AM [facility] Anion Gap 4.0 0.0 - 15.0 mmol/L 02/08/2025 2:25 AM [facility] Blood 02/08/2025 1:45 AM CDT 02/08/2025 1:52 AM CDT us Yany Ingram MD CHEMISTRY ORDERABLE Final Result Performing Organization Address City/State/[facility] Co de Phone Number [facility] [address] [place] [address] * (ABNORMAL) CBC / Diff (02/08/2025 1:45 AM CDT) WBC 15.5(H) 4.3 - 10.8 K/uL 02/08/2025 2:07 AM [facility] RBC 2.88(L) 4.20 - 5.40 M/uL 02/08/2025 2:07 AM [facility] Hemoglobin 10.1(L) 12.0 - 16.0 gm/dL 02/08/2025 2:07 AM [facility] Hematocrit 32.6(L) 36.0 - 48.0 % 02/08/2025 2:07 AM [facility] MCV 113(H) 80 - 100 fL 02/08/2025 2:07 AM [facility] MCH 35(H) 27 - 33 pg 02/08/2025 2:07 AM [facility] MCHC 31(L) 33 - 36 gm/dL 02/08/2025 2:07 AM [facility] RDW 15.3(H) 11.5 - 14.5 % 02/08/2025 2:07 AM [facility] Platelet Count 370 150 - 400 K/UL 02/08/2025 2:07 AM [facility] MPV 8.9 6.5 - 12 fL 02/08/2025 2:07 AM [facility] PMN % 86.5 % 02/08/2025 2:07 AM [facility] IG % 0.8 <=1.0 % 02/08/2025 2:07 AM [facility] Lymphocyte % 7.8 % 02/08/2025 2:07 AM [facility] Monocyte % 4.1 % 02/08/2025 2:07 AM [facility] Eosinophil % 0.5 % 02/08/2025 2:07 AM [facility] Basophil % 0.3 % 02/08/2025 2:07 AM [facility] PMN Absolute 13.42(H) 1.80 - 7.80 K/uL 02/08/2025 2:07 AM [facility] Lymphocyte Absolute 1.21 1.00 - 4.00 K/uL 02/08/2025 2:07 AM [facility] Monocyte Absolute 0.64 0.00 - 1.00 K/uL 02/08/2025 2:07 AM [facility] Eosinophil Absolute 0.08 0.00 - 0.45 K/uL 02/08/2025 2:07 AM [facility] Basophil Absolute 0.04 0.00 - 0.20 K/uL 02/08/2025 2:07 AM [facility] Nucl RBC % 0.0 0.0 - 0.0 /100 WBC 02/08/2025 2:07 AM CDT [facility] Nucl RBC Absolute 0.00 0.00 - 0.00 K/uL 02/08/2025 2:07 AM CDT [facility] Blood 02/08/2025 1:45 AM CDT 02/08/2025 1:52 AM CDT Yany Ingram MD HEMATOLOGY ORDERABLE Hailee l Result [facility] [address] [place], [place] [id number] * XR OUTSIDE UPPER EXTREMITY STUDY (02/07/2025 12:00 AM CDT) Study Outside XRAY ORDERABLE Final Result documented in this encounter Visit Diagnoses Diagnosis Osteomyelitis (HCC)- Primary Unspecified osteomyelitis, site unspecified Gangrene (HCC) Gangrene Gangrene, not elsewhere classified (HCC) Other acute osteomyelitis of right hand (HCC) Nausea and vomiting, unspecified vomiting type Dysphagia, unspecified type 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) Tobacco dependence Tobacco use disorder Anemia Anemia, unspecified Gangrene of finger of right hand (HCC) Suspected HAP/VAP (gram negative or MRSA pneumonia) Pneumonia due to other gram-negative bacteria documented in this encounter Admitting Diagnoses Diagnosis Osteomyelitis (HCC) Unspecified osteomyelitis, site unspecified documented in this encounter Administered Medications Inactive Administered Medications - up to 3 most recent administrations Medication Order MAR Action Action Date Dose Rate Site saline FLUSH syringe 10 mL 10 mL, Intravenous, EVERY 8 HOURS, First dose on 02/08/25 at 0600, Until Discontinued Given 02/16/2025 1:31 PM CDT 10 mL Given 02/16/2025 5:24 AM CDT 10 mL Given 02/15/2025 10:00 PM CDT 10 mL saline FLUSH syringe 10 mL 10 mL, Intravenous, NEEDED, Starting on 02/08/25 at 0049, Until 02/16/25 at 2223, Line Care Given 02/15/2025 9:22 AM CDT 10 mL Given 02/15/2025 8:05 AM CDT 10 mL Given 02/15/2025 8:03 AM CDT 10 mL saline FLUSH syringe 10 mL 10 mL, Intravenous, EVERY 8 HOURS, First dose on Mon02/16/25 at 1400, Until Discontinued, Pre-Op Given 02/16/2025 3:06 PM CDT 10 mL saline FLUSH syringe 10 mL 10 mL, Intravenous, NEEDED, Starting on Mon02/16/25 at 0947, Until Mon02/16/25 at 2223, Pre-Op, Line Care acetaminophen (TYLENOL) tablet 1,000 mg 1,000 mg, oral, FOUR TIMES A DAY, First dose (after last modification) on Mon02/09/25 at 1300, Until Discontinued Given 02/16/2025 11:24 AM CDT 1,000 m g Given 02/15/2025 9:36 PM CDT 1,000 mg Given 02/15/2025 5:35 PM CDT 1,000 mg D50W IV syringe 25-50 mL 25-50 mL, Intravenous, NEEDED, Starting on Mon02/14/25 at 0909, Until Mon02/16/25 at 2223, hypoglycemia Given 02/14/2025 8:41 PM CDT 25 mL Given 02/14/2025 9:33 AM CDT 25 mL D50W IV syringe 25-50 mL 25-50 mL, Intravenous, NEEDED, Starting on Mon02/16/25 at 0947, Until Mon02/16/25 at 2223, Pre-Op, hypoglycemia dextrose 5% in water-lactated ringers IV infusion at 125 mL/hr, Intravenous, CONTINUOUS, Starting on Mon02/14/25 at 1200, Until Mon02/16/25 at 1445 New Bag 02/16/2025 12:25 PM CDT 125 mL/hr Auto Rate Verify 02/16/2025 11:55 AM CDT 125 mL /hr Restarted 02/16/2025 10:50 AM CDT 125 mL/hr enoxaparin (LOVENOX) injection 40 mg 40 mg, Subcutaneous, DAILY, First dose on Mon02/16/25 at 1000, Until Discontinued, The minimum weight for this order is 35 kg. For 1 mg/kg dose patients >190 kg, consider using an unfractionated heparin infusion. For 1.5 mg/kg dose patients >125 kg, use enoxaparin 1 mg/kg q12h per dose rounding guidelines. This medication has a Blackbox Warning. Click the formulary reference link for more information. Given 02/16/2025 11:20 AM CDT 40 mg Abdo men famotidine (PEPCID) injection 20 mg 20 mg, Intravenous, TWICE A DAY, First dose on 02/08/25 at 0800, Until DiscontinuedIndications:stress ulcer prophylaxis Given 02/16/2025 10:52 AM CDT 20 mg Given 02/15/2025 7:30 PM CDT 20 mg Given 02/15/2025 8:02 AM CDT 20 mg fentaNYL (SUBLIMAZE) injection 25-50 mcg 25-50 mcg, Intravenous, EVERY 5 MINUTES NEEDED, 8 doses, Starting on 02/11/25 at 1133, Until 02/11/25 at 1456, Phase 1/2, ACUTE SURGICAL PAIN Given 2025 2:29 PM CDT 50 mcg Given 2025 2:15 PM CDT 50 mcg Given 2025 1:44 PM CDT 50 mcg gabapentin (NEURONTIN) capsule 200 mg 200 mg, oral, THREE TIMES A DAY NEEDED, Starting on 02/09/25 at 1312, Until 02/10/25 at 1024, nerve pain Given 02/09/2025 2:38 PM CDT 200 mg gabapentin (NEURONTIN) capsule 200 mg 200 mg, oral, THREE TIMES A DAY, First dose (after last modification) on 02/10/25 at 1400, Until Discontinued Given 02/12/2025 10:00 PM CDT 200 mg Given 02/12/2025 2:04 PM CDT 200 mg Given 02/12/2025 7:42 AM CDT 200 mg gabapentin (NEURONTIN) capsule 300 mg 300 mg, oral, THREE TIMES A DAY, First dose (after last modification) on [place] 02/13/25 at 0815, Until Discontinued Given 02/16/2025 1:25 PM CDT 300 mg Given 02/15/2025 9:36 PM CDT 300 mg Given 02/14/2025 10:20 PM CDT 300 mg glucagon, human recombinant (Glucagen) injection (conc: 1 mg/mL) 1 mg 1 mg, IntraMUSCULAR, EVERY 15 MINUTES NEEDED, 2 doses, Starting on Mon02/14/25 at 0909, Until Mon02/16/25 at 2223, for hypoglycemia guaiFENesin (ROBITUSSIN) syrup 100 mg 100 mg, oral, EVERY 4 HOURS NEEDED, Starting on [place] 02/13/25 at 2114, Until Mon02/16/25 at 2223, cough Given 02/16/2025 4:28 AM CDT 100 mg Given 02/15/2025 7:58 PM CDT 100 mg Given 02/14/2025 4:17 AM CDT 100 mg HYDROmorphone (Dilaudid) syringe 0.2-0.4 mg 0.2-0.4 mg, Intravenous, EVERY 5 MINUTES NEEDED, 5 doses, Starting on Mon02/09/25 at 1133, Until Mon02/09/25 at 1237, Phase 1/2, POST-ACUTE PAIN MANAGEMENT Given 02/09/2025 12:10 PM CDT 0.3 mg Given 02/09/2025 11:59 AM CDT 0.2 mg HYDROmorphone (Dilaudid) syringe 0.2-0.4 mg 0.2-0.4 mg, Intravenous, EVERY 5 MINUTES NEEDED, 5 doses, Starting on Mon02/11/25 at 1133, Until Mon02/11/25 at 1428, Phase 1/2, POST-ACUTE PAIN MANAGEMENT Given 2025 2:28 PM CDT 0.2 mg Given 2025 2:21 PM CDT 0.3 mg Given 2025 2:04 PM CDT 0.2 mg HYDROmorphone (Dilaudid) syringe 0.2-0.4 mg 0.2-0.4 mg, Intravenous, EVERY 5 MINUTES NEEDED, 5 doses, Starting on Mon02/16/25 at 0948, Until Mon02/16/25 at 1038, Phase 1, POST-ACUTE PAIN MANAGEMENT Given 02/16/2025 9:52 AM CDT 0.2 mg Given 02/16/2025 9:00 AM CDT 0.3 mg HYDROmorphone (Dilaudid) syringe 0.5-1 mg 0.5-1 mg, Intravenous, EVERY 2 HOURS NEEDED, Starting on 02/08/25 at 0106, Until [place] 02/13/25 at 0937, Pain, when NOT taking PO, Pain, if oral opioid not effective or tolerated Given 02/13/2025 3 :13 AM CDT 1 mg Given 02/13/2025 12:17 AM CDT 1 mg Given 02/12/2025 10:00 PM CDT 0.5 mg HYDROmorphone (Dilaudid) syringe 0.5-1 mg 0.5-1 mg, Intravenous, EVERY 4 HOURS NEEDED, Starting on [place] 02/13/25 at 0935, Until 02/16/25 at 2223, Pain, when NOT taking PO, Pain, if oral opioid not effective or tolerated Given 02/16/2025 3:26 AM CDT 0.5 mg Given 02/15/2025 4:24 PM CDT 0.5 mg Given 02/15/2025 2:17 PM CDT 0.5 mg HYDROmorphone (DILAUDID) tablet 2-4 mg 2-4 mg, oral, EVERY 4 HOURS NEEDED, Starting on [place] 02/13/25 at 0937, Until 02/16/25 at 2223, pain Given 02/16/2025 3:55 PM CDT 4 mg Given 02/16/2025 11:32 AM CDT 4 mg Given 02/16/2025 12:42 AM CDT 4 mg hydrOXYzine HCl (VISTARIL) injection 25 mg 25 mg, IntraMUSCULAR, ONCE NEEDED, MAY REPEAT X 1, 2 doses, Starting on Mon02/11/25 at 1133, Until Mon02/11/25 at 1456, Phase 1/2, for augmentation of narcotic based analgesia while in recovery area and unable to take PO. Not to be given within the past 6 hours. Given 2025 1:48 PM CDT 25 mg Left Lateral Thigh hydrOXYzine pamoate (Vistaril) capsule 25-50 mg 25-50 mg, oral, EVERY 6 HOURS NEEDED, Starting on 02/09/25 at 1257, Until 02/16/25 at 2223, Adjuvant to pain management Given 02/16/2025 1:25 PM CDT 50 mg Given 02/14/2025 4:18 PM CDT 50 mg Given 02/13/2025 4:23 PM CDT 25 mg ketorolac (ToradoL) injection 15 mg 15 mg, Intravenous, ONCE, 1 dose, On Mon02/09/25 at 1300, Maximum duration of treatment is 5 days. Given 02/09/2025 1:05 PM CDT 15 mg lactated Ringers (LR) IV infusion at 100 mL/hr, Intravenous, CONTINUOUS, Starting on 02/10/25 at 1415, Until Tu02/11/25 at 1414 New Bag 2025 5:28 AM CDT 100 mL/hr New Bag 02/10/2025 10:19 PM CDT 100 mL/hr New Bag 02/10/2025 3:21 PM CDT 100 mL/hr lidocaine (LMX-4) topical cream 1 Application topical, NEEDED, Starting on 02/08/25 at 0049, Until 02/16/25 at 2223, IV start or restart if patient prefers a needleless local anesthetic. lidocaine 1% injection (conc: 10 mg/mL) 0.1-0.3 mL 0.1-0.3 mL, Intradermal, NEEDED, Starting on 02/08/25 at 0049, Until 02/16/25 at 2223, Local Anesthesia, IV start or restart MAGNESIUM REPLACEMENT INTRAVENOUS - NOT FOR DOCUMENTATION PURPOSES Intravenous, PER PROTOCOL, Starting on 02/08/25 at 0155, Until 02/16/25 at 2223 magnesium sulfate 2 gram / 50mL (4%) IV piggyback (PREMIX) 2 g 2 g, Intravenous, ONCE, 1 dose, On Mon02/14/25 at 1100, Administer over 2 Hours, 1 g magnesium replacement should be given over 1 hour (may give 2 g over 1 hour in ICU/ED setting). 4 grams should NOT be used for magnesium replacement. New Bag 02/14/2025 12:07 PM CDT 2 g 25 mL/hr magnesium sulfate 2 gram / 50mL (4%) IV piggyback (PREMIX) 2 g 2 g, Intravenous, ONCE, 1 dose, On Mon02/16/25 at 0800, Administer over 2 Hours, 1 g magnesium replacement should be given over 1 hour (may give 2 g over 1 hour in ICU/ED setting). 4 grams should NOT be used for magnesium replacement. Auto Rate Verify 02/16/2025 11:55 AM CDT 25 mL/hr Auto Rate Verify 02/16/2025 11:17 AM CDT 25 mL/ hr New Bag 02/16/2025 11:17 AM CDT 2 g 25 mL/hr methocarbamoL (ROBAXIN) injection 1,000 mg 1,000 mg, Intravenous, ONCE NEEDED, Starting on Tu02/11/25 at 1133, Until Tu02/11/25 at 1456, Phase 1/2, IV methocarbamol can be given for no more than 3 consecutive days. If additional IV methocarbamol is needed there should be a drug-free interval of 48 hours. Given 2025 1:43 PM CDT 1,000 mg methocarbamoL (ROBAXIN) tablet 250-500 mg 250-500 mg, oral, EVERY 6 HOURS NEEDED, Starting on 02/09/25 at 1257, Until [place] 02/13/25 at 0804, muscle spasm Given 02/13/2025 5:51 AM CDT 500 mg Given 02/12/2025 8:22 PM CDT 500 mg Given 02/12/2025 2:03 PM CDT 500 mg methocarbamoL (ROBAXIN) tablet 500 mg 500 mg, oral, FOUR TIMES A DAY, First dose (after last modification) on Mon02/13/25 at 1200, Until Discontinued Given 02/14/2025 12:03 PM CDT 500 mg Given 02/14/2025 8:44 AM CDT 500 mg Given 02/13/2025 9:14 PM CDT 500 mg methocarbamoL (ROBAXIN) tablet 500-1,000 mg 500-1,000 mg, oral, FOUR TIMES A DAY, First dose (after last modification) on Mon02/14/25 at 1800, Until Discontinued Given 02/16/2025 11:24 AM CDT 500 mg Given 02/15/2025 9:36 PM CDT 500 mg Given 02/15/2025 5:35 PM CDT 500 mg metoclopramide HCl (Reglan) injection 10 mg 10 mg, Intravenous, EVERY 6 HOURS NEEDED, Starting on 02/15/25 at 1046, Until 02/16/25 at 2223, Nausea/Vomiting, 3rd choice Given 02/15/2025 11:4 4 AM CDT 10 mg metroNIDAZOLE (FLAGYL) tablet 500 mg 500 mg, oral, EVERY 8 HOURS, First dose on [place] 02/13/25 at 1430, Until Discontinued, For C. difficile, anaerobic bacteremia, parasitic, or UTILITY BAG ASSEMBLER infections utilize q8h frequency. For all other infections, utilize q12h frequency., On hold since [facility] 02/13/2025 at 2327 until manually unheldIndications:ORTHO, BONE AND GRAND TRAVERSE JOINT INFECTIONS Given 02/13/2025 9:14 PM CDT 500 mg Given 02/13/2025 2:04 PM CDT 500 mg nicotine (NICOTROL) 7 mg/24 hr patch 7 mg 7 mg (1 patch), Transdermal, DAILY, First dose on [facility] 02/08/25 at 1315, Until Discontinued Patch Applied 02/16/2025 11:15 AM CDT 7 mg Right Shoulder Patch Applied 02/14/2025 8:46 AM CDT 7 mg Left Arm Patch Applied 02/13/2025 8:13 AM CDT 7 mg Right Arm ondansetron (Zofran) disintegrating tablet 4-8 mg 4-8 mg, oral, EVERY 8 HOURS NEEDED, Starting on 02/08/25 at 0050, Until 02/16/25 at 2223, nausea & vomiting, 1st choice Given 02/15/2025 7:30 PM CDT 4 mg Given 02/15/2025 1:09 AM CDT 4 mg Given 02/14/2025 6:51 PM CDT 8 mg ondansetron (Zofran) injection 4-8 mg 4-8 mg, Intravenous, EVERY 8 HOURS NEEDED, Starting on 02/08/25 at 0050, Until 02/16/25 at 2223, nausea & vomiting, 1st choice Given 02/16/2025 3: 26 AM CDT 4 mg Given 02/15/2025 4:26 PM CDT 4 mg Given 02/15/2025 8:01 AM CDT 4 mg oxyCODONE (immediate release) (ROXICODONE) tablet 5 mg 5 mg, oral, NEEDED, MAY REPEAT X1, 2 doses, Starting on 02/09/25 at 1133, Until [place] 02/09/25 at 1237, Phase 1/2, Pain, when taking PO, pain while in recovery area Given 02/09/2025 12:18 PM CDT 5 mg oxyCODONE (immediate release) (ROXICODONE) tablet 5 mg 5 mg, oral, NEEDED, MAY REPEAT X1, 2 doses, Starting on Mon02/11/25 at 1133, Until Mon02/11/25 at 1456, Phase 1/2, Pain, when taking PO, pain while in recovery area Given 2025 2:14 PM CDT 5 mg oxyCODONE (immediate release) (ROXICODONE) tablet 5-10 mg 5-10 mg, oral, EVERY 4 HOURS NEEDED, Starting on Mon02/08/25 at 0106, Until [place] 02/13/25 at 0937, Pain, when taking PO, Breakthrough pain, when taking PO Given 02/13/2025 5:50 AM CDT 10 mg Given 02/13/2025 2:02 AM CDT 10 mg Given 02/12/2025 8:22 PM CDT 10 mg pantoprazole (Protonix) delayed release tablet 40 mg 40 mg, oral, TWICE A DAY, First dose on Mon02/09/25 at 2000, Until DiscontinuedIndications:substitution for home med Given 02/16/2025 11:25 AM CDT 40 mg Given 02/15/2025 7:30 PM CDT 40 mg Given 02/14/2025 7:57 PM CDT 40 mg piperacillin-tazobactam (ZOSYN) 3.375 g in sodium chloride 0.9 % 100 mL IV piggyback 3.375 g, Intravenous, EVERY 8 HOURS (NS), First dose on Mon02/08/25 at 0200, Until DiscontinuedIndications:osteomyeli tis New Bag 02/13/2025 10:03 AM CDT 3.375 g 25 mL/hr New Bag 02/13/2025 1:44 AM CDT 3.375 g 25 mL/hr New Bag 02/12/2025 5:49 PM CDT 3.375 g 25 mL/hr piperacillin-tazobactam (ZOSYN) 3.375 g in sodium chloride 0.9 % 100 mL IV piggyback 3.375 g, Intravenous, EVERY 8 HOURS (NS), First dose on Mon02/14/25 at 0600, Until DiscontinuedIndications:CELLULITIS/ SKIN AND SOFT TISSUE INFECTION,PNEUMONIA, HOSPITAL ACQUIRED New Bag 02/16/2025 1:30 PM CDT 3.375 g 25 mL/hr New Bag 02/16/2025 5:24 AM CDT 3.375 g 25 mL/hr New Bag 02/15/2025 9:39 PM CDT 3.375 g 25 mL/hr piperacillin-tazobactam (ZOSYN) 4.5 g in sodium chloride 0.9 % 100 mL IV piggyback 4.5 g, Intravenous, ONCE, 1 dose, On [place] 02/13/25 at 2330, For obese patients (BMI greater than or equal to 30 kg/m2), dose with 4.5 gIndications:CELLULITIS/SKIN AND SOFT TISSUE INFECTION,PNEUMONIA, HOSPITAL ACQUIRED Restarted 02/14/2025 12:34 AM CDT 200 mL/hr New 02/14/2025 12:07 AM CDT 4.5 g 200 mL/hr potassium chloride (K-DUR) extended release tablet 20 mEq 20 mEq, oral, ONCE, 1 dose, On [facility] 02/13/25 at 0945 Given 02/13/2025 9:57 AM CDT 20 mEq potassium chloride (K-DUR) extended release tablet 20 mEq 20 mEq, oral, ONCE, 1 dose, On [facility] 02/13/25 at 1800 Given 02/13/2025 5:45 PM CDT 20 mEq potassium chloride 10 mEq IV piggyback in 100 mL 10 mEq, Intravenous, EVERY 1 HOUR, 4 doses, First dose on [facility] 02/08/25 at 1200, Last dose on [facility] 02/08/25 at 1600, Administer over 60 Minutes New Bag 02/08/2025 4:19 PM CDT 10 mE q 100 mL/hr New Bag 02/08/2025 3:10 PM CDT 10 mEq 100 mL/hr New 02/08/2025 2:06 PM CDT 10 mEq 100 mL/hr potassium chloride 10 mEq IV piggyback in 100 mL 10 mEq, Intravenous, EVERY 1 HOUR, 6 doses, First dose on [facility] 02/15/25 at 1000, Last dose on [facility] 02/15/25 at 1500, Administer over 60 Minutes New Bag 02/15/2025 4:21 PM CDT 10 mE q 100 mL/hr Restarted 02/15/2025 2:55 PM CDT 100 mL/hr Auto Rate Verify 02/15/2025 2:25 PM CDT 100 mL/ hr potassium chloride 10 mEq IV piggyback in 100 mL 10 mEq, Intravenous, EVERY 1 HOUR, 4 doses, First dose on 02/16/25 at 0800, Last dose on Mon02/16/25 at 1100, Administer over 60 Minutes Auto Rate Verify 02/16/2025 12:26 PM CDT 100 mL/hr Auto Rate Verify 02/16/2025 11:55 AM CDT 100 mL /hr New Bag 02/16/2025 10:52 AM CDT 10 mEq 100 mL/hr potassium chloride 10 mEq IV piggyback in 100 mL 10 mEq, Intravenous, EVERY 1 HOUR, 3 doses, First dose on 02/16/25 at 1200, Last dose on Mon02/16/25 at 1400, Administer over 60 Minutes New Bag 02/16/2025 2:03 PM CDT 10 mE q 100 mL/hr New Bag 02/16/2025 12:54 PM CDT 10 mEq 100 mL/hr New Bag 02/16/2025 11:47 AM CDT 10 mEq 100 mL/hr POTASSIUM REPLACEMENT INTRAVENOUS - NOT FOR DOCUMENTATION PURPOSES Intravenous, PER PROTOCOL, Starting on 02/08/25 at 0155, Until 02/16/25 at 2223 POTASSIUM REPLACEMENT ORAL - NOT FOR DOCUMENTATION PURPOSES oral, PER PROTOCOL, Starting on 02/08/25 at 0155, Until 02/16/25 at 2223, May request packets if patient requires liquid potassium. prochlorperazine (COMPAZINE) injection 5-10 mg 5-10 mg, Intravenous, EVERY 6 HOURS NEEDED, Starting on 02/10/25 at 1023, Until 02/16/25 at 2223, Nausea/Vomiting, 2nd choice, nausea Given 02/16/2025 4:39 AM CDT 10 mg Given 02/15/2025 9:20 AM CDT 10 mg Given 02/14/2025 7:55 PM CDT 5 mg saline with benzyl alcohol injection 0.1-0.3 mL 0.1-0.3 mL, Intradermal, NEEDED, Starting on 02/08/25 at 0049, Until 02/16/25 at 2223, IV start or restart senna (SENOKOT) tablet 8.6-17.2 mg 8.6-17.2 mg (1-2 tablet), oral, EVERY EVENING, First dose on 02/10/25 at 2000, Until Discontinued Given 02/12/2025 8:22 PM CDT 17.2 mg sodium chloride 0.9 % IV solution at 100 mL/hr, Intravenous, CONTINUOUS, Starting on 02/08/25 at 1230, Until 02/08/25 at 1629 Auto Rate Verify 02/08/2025 2:05 PM CDT 100 mL/hr Rate Change 02/08/2025 1:05 PM CDT 100 mL/hr New Bag 02/08/2025 12:52 PM CDT 50 mL/hr sulfamethoxazole 800 mg-trimethoprim 160 mg (BACTRIM DS;SEPTRA DS) tablet 160 mg 160 mg (1 tablet), oral, TWICE A DAY, First dose on [place] 02/13/25 at 1800, Until Discontinued, Dosing of sulfamethoxazole/trimethoprim (Bactrim or Septra products) is based on the trimethoprim component. Equivalency of oral suspension to tablet is: 10 mL = 1 SS tab, 20 mL = 1 DS tab. , On hold since [facility] 02/13/2025 at 2327 until manually unheldIndications:ORTHO, BONE AND GRAND TRAVERSE JOINT INFECTIONS Given 02/13/2025 6:09 PM CDT 160 mg vancomycin (VANCOCIN) 1,000 mg in sodium chloride 0.9 % 250 mL IV piggyback 1,000 mg (rounded from 1,072 mg = 20 mg/kg 53.6 kg), at 250 mL/hr, Intravenous, EVERY 12 HOURS (NS), First dose on [facility] 02/08/25 at 0800, Until DiscontinuedIndications:osteo New Bag 02/10/2025 8:00 AM CDT 1,000 mg 2 50 mL/hr New Bag 02/09/2025 7:24 PM CDT 1,000 mg 250 mL/hr New Bag 02/09/2025 7:38 AM CDT 1,000 mg 250 mL/hr vancomycin (VANCOCIN) 1,000 mg in sodium chloride 0.9 % 250 mL IV piggyback 1,000 mg (rounded from 1,072 mg = 20 mg/kg 53.6 kg), at 250 mL/hr, Intravenous, EVERY 18 HOURS (NS), First dose on Mon02/15/25 at 0000, Until DiscontinuedIndications:PNEUMONIA , HOSPITAL ACQUIRED,PNEUMONIA, 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 New Bag 02/15/2025 1:21 AM CDT 1,000 mg 250 mL/hr vancomycin (VANCOCIN) 1,000 mg in sodium chloride 0.9 % 250 mL IV piggyback 1,000 mg (rounded from 1,072 mg = 20 mg/kg 53.6 kg), at 250 mL/hr, Intravenous, EVERY 12 HOURS (NS), First dose (after last modification) on Mon02/15/25 at 1400, Until DiscontinuedIndications:PNEUMONIA , HOSPITAL ACQUIRED,PNEUMONIA, 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 New Bag 02/16/2025 2:09 AM CDT 1,000 mg 250 mL/hr Auto Rate Verify 02/15/2025 2:25 PM CDT 250 mL/ hr New Bag 02/15/2025 1:49 PM CDT 1,000 mg 250 mL/hr vancomycin (VANCOCIN) 1,250 mg in sodium chloride 0.9 % 250 mL IV piggyback 1,250 mg (rounded from 1,179.2 mg = 22 mg/kg 53.6 kg), at 166.67 mL/hr, Intravenous, EVERY 24 HOURS (NS), First dose on Mon02/11/25 at 0600, Until DiscontinuedIndications:osteomy elitis New Bag 02/13/2025 5:53 AM CDT 1,250 mg 166.67 mL/hr New Bag 02/12/2025 6:23 AM CDT 1,250 mg 166.67 mL/hr New Bag 2025 5:52 AM CDT 1,250 mg 166.67 mL/hr vancomycin (VANCOCIN) 1,250 mg in sodium chloride 0.9 % 250 mL IV piggyback 1,250 mg (rounded from 1,179.2 mg = 22 mg/kg 53.6 kg), at 166.67 mL/hr, Intravenous, EVERY 24 HOURS (NS), First dose (after last reorder) on Mon02/14/25 at 0600, Until DiscontinuedIndications:osteomy elitis New Bag 02/14/2025 5:24 AM CDT 1,250 mg 166.67 mL/hr Vancomycin Pharmacy Consult Pneumonia diagnosis code: Suspected HAP/VAP (gram negative or MRSA pneumonia)Indications:PNEUMONIA , HOSPITAL ACQUIRED,PNEUMONIA, 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 Scheduled Medication Order 02/14/2025 02/15/2025 02/16/2025 saline FLUSH syringe 10 mL 10 mL, Intravenous, EVERY 8 HOURS, First dose on 02/08/25 at 0600, Until Discontinued 0522 (Given - Provider: Axel Torres RN)1406 (Given - Provider: Maria Guadalupe Cagle RN)2200 (Given - Provider: Rubia Velásquez RN) 0705 (Given - Provider: Michael Bishop RN)1350 (Given - Provider: Mila De Leon RN)2200 (Given - Provider: Rubia Velásquez RN) 0524 (Given - Provider: Patricia Herring RN)0824 (NOV Hold - Provider: Interface, Incoming Adt - Reason: Procedure)1053 (NOV Unhold - Provider: Interface, Incoming Adt)1331 (Given - Provider: Mila De Leon RN) saline FLUSH syringe 10 mL 10 mL, Intravenous, EVERY 8 HOURS, First dose on 02/16/25 at 1400, Until Discontinued, Pre-Op 1506 (Given - Provider: Mila De Leon RN) acetaminophen (TYLENOL) tablet 1,000 mg 1,000 mg, oral, FOUR TIMES A DAY, First dose (after last modification) on 02/09/25 at 1300, Until Discontinued 0642 (Given - Provider: Axel Torres RN)0800 (Canceled Entry - Provider: Axel Torres RN)1203 (Given - Provider: Maria Guadalupe Cagle RN)1829 (Given - Provider: Shashank Chen RN)2220 (Given - Provider: Rubia Velásquez RN) 0953 (Not Given - Provider: Mila De Leon RN - Reason: Nauseated)1200 (Not Given - Provider: Mila De Leon RN - Reason: NPO - Comment: nausea/ emesis- made NPO)1735 (Given - Provider: Rubia Velásquez RN)2136 (Given - Provider: Rubia Velásquez RN) 0800 (Not Given - Provider: Mila De Leon RN - Reason: NPO)0824 (MAR Hold - Provider: Interface, Incoming Adt - Reason: Procedure)1053 (MAR Unhold - Provider: Interface, Incoming Adt)1124 (Given - Provider: Mila De Leon RN) enoxaparin (LOVENOX) injection 40 mg 40 mg, Subcutaneous, DAILY, First dose on 02/16/25 at 1000, Until Discontinued, The minimum weight for this order is 35 kg. For 1 mg/kg dose patients >190 kg, consider using an unfractionated heparin infusion. For 1.5 mg/kg dose patients >125 kg, use enoxaparin 1 mg/kg q12h per dose rounding guidelines. This medication has a Blackbox Warning. Click the formulary reference link for more information. 1120 (Given - Provider: Mila De Leon RN) famotidine (PEPCID) injection 20 mg (CANCELED) 20 mg, Intravenous, TWICE A DAY, First dose on 02/08/25 at 0800, Until Discontinued 0859 (Given - Provider: Maria Guadalupe Cagle RN)1955 (Given - Provider: Rubia Velásquez RN) 0802 (Given - Provider: Mila De Leon RN)1930 (Given - Provider: Rubia Velásquez RN) 0824 (MAR Hold - Provider: Interface, Incoming Adt - Reason: Procedure)1052 (Given - Provider: Mila De Leon RN)1053 (MAR Unhold - Provider: Interface, Incoming Adt) gabapentin (NEURONTIN) capsule 300 mg 300 mg, oral, THREE TIMES A DAY, First dose (after last modification) on [place] 02/13/25 at 0815, Until Discontinued 0644 (Given - Provider: Axel Torres, SINGH)0800 (Canceled Entry - Provider: Axel Torres, SINGH)1406 (Given - Provider: Maria Guadalupe Cagle, SINGH)2220 (Given - Provider: Rubia Velásquez, SINGH) 0800 (Not Given - Provider: Mila Guillermo Subject, RN - Reason: Nauseated)1400 (Not Given - Provider: Mila Guillermo Subject, RN - Reason: Nauseated)2136 (Given - Provider: Rubia Velásquez, SINGH) 0800 (Not Given - Provider: Mila De Leon, RN - Reason: NPO)0824 (MAR Hold - Provider: Interface, Incoming Adt - Reason: Procedure)1053 ([facility] Unhold - Provider: Interface, Incoming Adt)1325 (Given - Provider: Mila De Leon, RN) MAGNESIUM REPLACEMENT INTRAVENOUS - NOT FOR DOCUMENTATION PURPOSES Intravenous, PER PROTOCOL, Starting on 02/08/25 at 0155, Until 02/16/25 at 2223 0824 ([facility] Hold - Provider: Interface, Incoming Adt - Reason: Procedure)1053 ([facility] Unhold - Provider: Interface, Incoming Adt) magnesium sulfate 2 gram / 50mL (4%) IV piggyback (PREMIX) 2 g (COMPLETED) 2 g, Intravenous, ONCE, 1 dose, On Mon02/14/25 at 1100, Administer over 2 Hours, 1 g magnesium replacement should be given over 1 hour (may give 2 g over 1 hour in ICU/ED setting). 4 grams should NOT be used for magnesium replacement. 1207 (New Bag - Provider: Maria Guadalupe Cagle, SINGH) magnesium sulfate 2 gram / 50mL (4%) IV piggyback (PREMIX) 2 g (COMPLETED) 2 g, Intravenous, ONCE, 1 dose, On 02/16/25 at 0800, Administer over 2 Hours, 1 g magnesium replacement should be given over 1 hour (may give 2 g over 1 hour in ICU/ED setting). 4 grams should NOT be used for magnesium replacement. 0824 ([facility] Hold - Provider: Interface, Incoming Adt - Reason: Procedure)1053 ([facility] Unhold - Provider: Interface, Incoming Adt)1117 (New Bag - Provider: Mila De Leon, RN)1117 (Auto Rate Verify - Provider: Mila De Leon, RN)1155 (Auto Rate Verify - Provider: Mila De Leon, RN)1249 (Stopped - Provider: Mila De Leon, RN) methocarbamoL (ROBAXIN) tablet 500 mg (CANCELED) 500 mg, oral, FOUR TIMES A DAY, First dose (after last modification) on Mon02/13/25 at 1200, Until Discontinued 0844 (Given - Provider: Maria Guadalupe Cagle RN)1203 (Given - Provider: Maria Guadalupe Cagle RN) methocarbamoL (ROBAXIN) tablet 500-1,000 mg 500-1,000 mg, oral, FOUR TIMES A DAY, First dose (after last modification) on Mon02/14/25 at 1800, Until Discontinued 1829 (Given - Provider: Shashank Chen RN)2220 (Given - Provider: Rubia Velásquez RN) 0953 (Not Given - Provider: Mila De Leon, RN - Reason: Nauseated)1200 (Not Given - Provider: Mila De Leon, RN - Reason: NPO - Comment: nausea/ emesis- made NPO)1735 (Given - Provider: Rubia Velásquez RN)2136 (Given - Provider: Rubia Velásquez RN) 0800 (Not Given - Provider: Mila De Leon, RN - Reason: NPO)0824 (NOV Hold - Provider: Interface, Incoming Adt - Reason: Procedure)1053 (MAR Unhold - Provider: Interface, Incoming Adt)1124 (Given - Provider: Mila De Leon, RN) metroNIDAZOLE (FLAGYL) tablet 500 mg 500 mg, oral, EVERY 8 HOURS, First dose on Mon02/13/25 at 1430, Until Discontinued, For C. difficile, anaerobic bacteremia, parasitic, or [employer] infections utilize q8h frequency. For all other infections, utilize q12h frequency., On hold since Mon02/13/2025 at 2327 until manually unheld 0600 (Automatically Held - Provider: Danielle Carrero DO)1400 (Automatically Held - Provider: Danielle Carrero DO)2200 (Automatically Held - Provider: Danielle Carrero DO) 0600 (Not Given - Provider: Mila N Subject, RN - Reason: deferred)1400 (Not Given - Provider: Mila Guillermo Subject, RN - Reason: deferred)2200 (Automatically Held - Provider: Danielle Carrero DO) 0600 (Not Given - Provider: Mila Guillermo Subject, RN - Reason: deferred)1400 (Not Given - Provider: Mila Guillermo Subject, RN - Reason: deferred)2223 (Unheld by provider - Provider: Ondischarge Autodiscontinue) nicotine (NICOTROL) 7 mg/24 hr patch 7 mg 7 mg (1 patch), Transdermal, DAILY, First dose on Mon02/08/25 at 1315, Until Discontinued 0845 (Patch Removed - Provider: Maria Guadalupe Cagle RN)0846 (Patch Applied - Provider: Maria Guadalupe Cagle RN) 0759 (Patch Removed - Provider: Mila De Leon, RN)0953 (Declined - Provider: Mila De Leon, RN) 0824 (NOV Hold - Provider: Interface, Incoming Adt - Reason: Procedure)1053 (MAR Unhold - Provider: Interface, Incoming Adt)1115 (Patch Applied - Provider: Mila De Leon, RN) pantoprazole (Protonix) delayed release tablet 40 mg 40 mg, oral, TWICE A DAY, First dose on Mon02/09/25 at 2000, Until Discontinued 0846 (Given - Provider: Maria Guadalupe Cagle RN)1957 (Given - Provider: Rubia Velásquez RN) 0954 (Not Given - Provider: Mila De Leon, RN - Reason: Nauseated)1930 (Given - Provider: Rubia Velásquez RN) 0824 (MAR Hold - Provider: Interface, Incoming Adt - Reason: Procedure)1053 (MAR Unhold - Provider: Interface, Incoming Adt)1125 (Given - Provider: Mila De Leon, RN) piperacillin-tazobactam (ZOSYN) 3.375 g in sodium chloride 0.9 % 100 mL IV piggyback 3.375 g, Intravenous, EVERY 8 HOURS (NS), First dose on Mon02/14/25 at 0600, Until Discontinued 0700 (New Bag - Provider: Axel Torres RN)1403 (New Bag - Provider: Maria Guadalupe Cagle RN)2127 (New Bag - Provider: Rubia Velásquez, RN) 0706 (New Bag - Provider: Michael Bishop, SINGH)0803 (Paused - Provider: Mila De Leon, RN)0810 (Restarted - Provider: Mila Guillermo Subject, RN)1047 (Stopped - Provider: Mila Guillermo Subject, RN)1501 (New Bag - Provider: Mila De Leon, RN)1756 (Auto Rate Verify - Provider: Rubia Velásquez, RN)2139 (New Bag - Provider: Rubia Velásquez, SINGH) 0524 (New Bag - Provider: Patricia Herring RN)0846 (Stopped - Provider: Mila Guillermo Subject, RN)1330 (New Bag - Provider: Mila De Leon, RN)1502 (Stopped - Provider: Mila De Leon, RN) piperacillin-tazobactam (ZOSYN) 4.5 g in sodium chloride 0.9 % 100 mL IV piggyback (COMPLETED) 4.5 g, Intravenous, ONCE, 1 dose, On [place] 02/13/25 at 2330, For obese patients (BMI greater than or equal to 30 kg/m2), dose with 4.5 g 0007 (New Bag - Provider: Axel Torres RN)0024 (Paused - Provider: Axel Torres RN)0034 (Restarted - Provider: Axel Torres RN)0049 (Stopped - Provider: Axel Torres RN) potassium chloride 10 mEq IV piggyback in 100 mL (COMPLETED) 10 mEq, Intravenous, EVERY 1 HOUR, 6 doses, First dose on 02/15/25 at 1000, Last dose on 02/15/25 at 1500, Administer over 60 Minutes 1041 (New Bag - Provider: Mila De Leon, RN)1136 (New Bag - Provider: Shashank Chen RN)1245 (New Bag - Provider: Mila De Leon, RN)1351 (New Bag - Provider: Mila De Leon, RN)1400 (New Bag - Provider: Mila Guillermo Subject, RN)1425 (Auto Rate Verify - Provider: Mila De Leon, RN)1455 (Restarted - Provider: Rubia Velásquez, SINGH)1556 (Stopped - Provider: Rubia Velásquez, RN)1621 (New Bag - Provider: Rubia Velásquez RN) potassium chloride 10 mEq IV piggyback in 100 mL (CANCELED) 10 mEq, Intravenous, EVERY 1 HOUR, 4 doses, First dose on 02/16/25 at 0800, Last dose on 02/16/25 at 1100, Administer over 60 Minutes 0824 ([facility] Hold - Provider: Interface, Incoming Adt - Reason: Procedure)0900 (Canceled Entry - Provider: Mila De Leon, RN)1000 (Canceled Entry - Provider: Mila De Leon, RN)1052 (New Bag - Provider: Mila De Leon, RN)1053 ([facility] Unhold - Provider: Interface, Incoming Adt)1059 (Canceled Entry - Provider: Mila De Leon, RN)1100 (Canceled Entry - Provider: Mila De Leon, RN)1155 (Auto Rate Verify - Provider: Mila De Leon, RN)1226 (Auto Rate Verify - Provider: Mila De Leon, RN) potassium chloride 10 mEq IV piggyback in 100 mL (COMPLETED) 10 mEq, Intravenous, EVERY 1 HOUR, 3 doses, First dose on 02/16/25 at 1200, Last dose on 02/16/25 at 1400, Administer over 60 Minutes 1147 (New Bag - Provider: Mila De Leon, RN)1254 (New Bag - Provider: Mila De Leon, RN)1403 (New Bag - Provider: Mila De Leon, RN) POTASSIUM REPLACEMENT INTRAVENOUS - NOT FOR DOCUMENTATION PURPOSES Intravenous, PER PROTOCOL, Starting on 02/08/25 at 0155, Until 02/16/25 at 2223 0824 ([facility] Hold - Provider: Interface, Incoming Adt - Reason: Procedure)1053 ([facility] Unhold - Provider: Interface, Incoming Adt) POTASSIUM REPLACEMENT ORAL - NOT FOR DOCUMENTATION PURPOSES oral, PER PROTOCOL, Starting on 02/08/25 at 0155, Until 02/16/25 at 2223, May request packets if patient requires liquid potassium. 0824 ([facility] Hold - Provider: Interface, Incoming Adt - Reason: Procedure)1053 ([facility] Unhold - Provider: Interface, Incoming Adt) sulfamethoxazole 800 mg-trimethoprim 160 mg (BACTRIM DS;SEPTRA DS) tablet 160 mg 160 mg (1 tablet), oral, TWICE A DAY, First dose on [place] 02/13/25 at 1800, Until Discontinued, Dosing of sulfamethoxazole/trimeth oprim (Bactrim or Septra products) is based on the trimethoprim component. Equivalency of oral suspension to tablet is: 10 mL = 1 SS tab, 20 mL = 1 DS tab. , On hold since [facility] 02/13/2025 at 2327 until manually unheld 0800 (Automatically Held - Provider: Danielle Carrero DO)1999 (Automatically Held - Provider: Danielle Carrero DO) 0800 (Not Given - Provider: Mila De Leon, RN - Reason: deferred)1999 (Automatically Held - Provider: Danielle Carrero DO) 0800 (Not Given - Provider: Mila De Leon RN - Reason: deferred)222 (Unheld by provider - Provider: Onbrenda Autodiscontinromulo) vancomycin (VANCOCIN) 1,000 mg in sodium chloride 0.9 % 250 mL IV piggyback (CANCELED) 1,000 mg (rounded from 1,072 mg = 20 mg/kg 53.6 kg), at 250 mL/hr, Intravenous, EVERY 18 HOURS (NS), First dose on [facility] 02/15/25 at 0000, Until Discontinued 0121 (New Bag - Provider: Michael Bishop RN) vancomycin (VANCOCIN) 1,000 mg in sodium chloride 0.9 % 250 mL IV piggyback 1,000 mg (rounded from 1,072 mg = 20 mg/kg 53.6 kg), at 250 mL/hr, Intravenous, EVERY 12 HOURS (NS), First dose (after last modification) on [facility] 02/15/25 at 1400, Until Discontinued 1349 (New Bag - Provider: Mila De Leon, RN)1425 (Auto Rate Verify - Provider: Mila De Leon, RN)1453 (Stopped - Provider: Rubia Velásquez RN) 0209 (New Bag - Provider: Patricia Herring RN)1400 (Canceled Entry - Provider: Mila De Leon RN - Comment: Patient discharging- deferred, meds switched to PO) vancomycin (VANCOCIN) 1,250 mg in sodium chloride 0.9 % 250 mL IV piggyback (CANCELED) 1,250 mg (rounded from 1,179.2 mg = 22 mg/kg 53.6 kg), at 166.67 mL/hr, Intravenous, EVERY 24 HOURS (NS), First dose (after last reorder) on Mon02/14/25 at 0600, Until Discontinued 0524 (New Bag - Provider: Axel Torres RN) varenicline tartrate (Chantix;Apo-Varenicline ) tablet 0.5 mg(Linked Group 1) 0.5 mg, oral, DAILY, 3 doses, First dose on Mon02/16/25 at 1245, Last dose on Mon02/18/25 at 0800 1517 (Given - Provider: Mila De Leon RN) varenicline tartrate (Chantix;Apo-Varenicline ) tablet 0.5 mg(Linked Group 1) 0.5 mg, oral, TWICE A DAY, 8 doses, First dose on Mon02/19/25 at 0800, Last dose on Mon02/22/25 at 2000 varenicline tartrate (Chantix;Apo-Varenicline ) tablet 1 mg(Linked Group 1) 1 mg, oral, TWICE A DAY, First dose on Mon02/23/25 at 0800, Until Discontinued Continuous Medication Order 02/14/2025 02/15/2025 02/16/2025 dextrose 5% in water-lactated ringers IV infusion (CANCELED) at 125 mL/hr, Intravenous, CONTINUOUS, Starting on Mon02/14/25 at 1200, Until Mon02/16/25 at 1445 1831 (New Bag - Provider: Shashank Chen RN - Comment: Moved due to Abx infusion)2020 (Rate Change - Provider: Rubia Velásquez RN) 0230 (Restarted - Provider: Michael Bishop RN)1013 (Restarted - Provider: Mila De Leon RN)1245 (New Bag - Provider: Mila De Leon RN)1458 (Paused - Provider: Rubia Velásquez RN)1458 (Rate Change - Provider: Rubia Velásquez RN)1756 (Auto Rate Verify - Provider: Rubia Velásquez RN) 0206 (New Bag - Provider: Patricia Herring RN)0824 (MAR Hold - Provider: Interface, Incoming Adt - Reason: Procedure)0845 (Paused - Provider: Mila N Subject, RN)1050 (Restarted - Provider: Mila De Leon, RN)1053 (MAR Unhold - Provider: Interface, Incoming Adt)1155 (Auto Rate Verify - Provider: Mila De Leon, RN)1214 (Paused - Provider: Mila De Leon, RN)1225 (New Bag - Provider: Mila De Leon, RN)1502 (Stopped - Provider: Mila De Leon, RN) PRN Medication Order 02/14/2025 02/15/2025 02/16/2025 saline FLUSH syringe 10 mL 10 mL, Intravenous, NEEDED, Starting on 02/08/25 at 0049, Until 02/16/25 at 2223, Line Care 1013 (Given - Provider: Karley Ybarra RN) 0803 (Given - Provider: Mila De Leon, RN)0805 (Given - Provider: Mila De Leon, RN)0922 (Given - Provider: Mila De Leon, RN) 0824 (NOV Hold - Provider: Interface, Incoming Adt - Reason: Procedure)1053 (NOV Unhold - Provider: Interface, Incoming Adt) saline FLUSH syringe 10 mL 10 mL, Intravenous, NEEDED, Starting on 02/16/25 at 0947, Until 02/16/25 at 2223, Pre-Op, Line Care D50W IV syringe 25-50 mL 25-50 mL, Intravenous, NEEDED, Starting on 02/14/25 at 0909, Until 02/16/25 at 2223, hypoglycemia 0933 (Given - Provider: Maria Guadalupe Cagle RN)204 (Given - Provider: Rubia Velásquez RN - Comment: unable to eat due to feeling full and nausous) 0824 (NOV Hold - Provider: Interface, Incoming Adt - Reason: Procedure)1053 (NOV Unhold - Provider: Interface, Incoming Adt) D50W IV syringe 25-50 mL 25-50 mL, Intravenous, NEEDED, Starting on 02/16/25 at 0947, Until 02/16/25 at 2223, Pre-Op, hypoglycemia glucagon, human recombinant (Glucagen) injection (conc: 1 mg/mL) 1 mg 1 mg, IntraMUSCULAR, EVERY 15 MINUTES NEEDED, 2 doses, Starting on 02/14/25 at 0909, Until 02/16/25 at 2223, for hypoglycemia 0824 ([facility] Hold - Provider: Interface, Incoming Adt - Reason: Procedure)1053 ([facility] Unhold - Provider: Interface, Incoming Adt) guaiFENesin (ROBITUSSIN) syrup 100 mg 100 mg, oral, EVERY 4 HOURS NEEDED, Starting on [place] 02/13/25 at 2114, Until 02/16/25 at 2223, cough 0417 (Given - Provider: Axel Torres RN) 1958 (Given - Provider: Rubia Velásquez, SINGH) 0428 (Given - Provider: Patricia Herring, SINGH)0824 ([facility] Hold - Provider: Interface, Incoming Adt - Reason: Procedure)1053 ([facility] Unhold - Provider: Interface, Incoming Adt) HYDROmorphone (Dilaudid) syringe 0.2-0.4 mg (CANCELED) 0.2-0.4 mg, Intravenous, EVERY 5 MINUTES NEEDED, 5 doses, Starting on 02/16/25 at 0948, Until 02/16/25 at 1038, Phase 1, POST-ACUTE PAIN MANAGEMENT 0900 (Given - Provider: Wilbur Sanchez RN)0952 (Given - Provider: Wilbur Sanchez RN) HYDROmorphone (Dilaudid) syringe 0.5-1 mg 0.5-1 mg, Intravenous, EVERY 4 HOURS NEEDED, Starting on [place] 02/13/25 at 0935, Until 02/16/25 at 2223, Pain, when NOT taking PO, Pain, if oral opioid not effective or tolerated 1150 (Given - Provider: Mila De Leon RN)1417 (Given - Provider: Mila De Leon RN)1624 (Given - Provider: Rubia Velásquez, SINGH) 0326 (Given - Provider: Patricia Herring, SINGH)0824 ([facility] Hold - Provider: Interface, Incoming Adt - Reason: Procedure)1053 ([facility] Unhold - Provider: Interface, Incoming Adt) HYDROmorphone (DILAUDID) tablet 2-4 mg 2-4 mg, oral, EVERY 4 HOURS NEEDED, Starting on [place] 02/13/25 at 0937, Until 02/16/25 at 2223, pain 0110 (Given - Provider: Axel Torres RN)0521 (Given - Provider: Axel Torres RN)1203 (Given - Provider: Maria Guadalupe Cagle, SINGH)1618 (Given - Provider: Shashank Chen RN)2037 (Given - Provider: Rubia Velásquez, SINGH) 004 (Given - Provider: Michael Bishop, SINGH)1930 (Given - Provider: Rubia Velásquez, SINGH) 004 (Given - Provider: Jacquelyn Yates RN)0824 ([facility] Hold - Provider: Interface, Incoming Adt - Reason: Procedure)105 ([facility] Unhold - Provider: Interface, Incoming Adt)1132 (Given - Provider: Mila De Leon RN)1555 (Given - Provider: Rubia Velásquez RN) hydrOXYzine pamoate (Vistaril) capsule 25-50 mg 25-50 mg, oral, EVERY 6 HOURS NEEDED, Starting on 02/09/25 at 1257, Until 02/16/25 at 2223, Adjuvant to pain management 161 (Given - Provider: Shashank Chen RN) 08 ([facility] Hold - Provider: Interface, Incoming Adt - Reason: Procedure)1053 ([facility] Unhold - Provider: Interface, Incoming Adt)1325 (Given - Provider: Mila De Leon RN) lidocaine (LMX-4) topical cream 1 Application topical, NEEDED, Starting on 02/08/25 at 0049, Until Sun 5 at 2223, IV start or restart if patient prefers a needleless local anesthetic. 0824 ([facility] Hold - Provider: Interface, Incoming Adt - Reason: Procedure)1053 ([facility] Unhold - Provider: Interface, Incoming Adt) lidocaine 1% injection (conc: 10 mg/mL) 0.1-0.3 mL 0.1-0.3 mL, Intradermal, NEEDED, Starting on 02/08/25 at 0049, Until Sun 5 at 2223, Local Anesthesia, IV start or restart 08 ([facility] Hold - Provider: Interface, Incoming Adt - Reason: Procedure)1053 ([facility] Unhold - Provider: Interface, Incoming Adt) metoclopramide HCl (Reglan) injection 10 mg 10 mg, Intravenous, EVERY 6 HOURS NEEDED, Starting on 02/15/25 at 1046, Until 02/16/25 at 2223, Nausea/Vomiting, 3rd choice 1144 (Given - Provider: Mila De Leon, RN) 0824 (MAR Hold - Provider: Interface, Incoming Adt - Reason: Procedure)1053 (MAR Unhold - Provider: Interface, Incoming Adt) ondansetron (Zofran) disintegrating tablet 4-8 mg(Linked Group 2) 4-8 mg, oral, EVERY 8 HOURS NEEDED, Starting on 02/08/25 at 0050, Until 02/16/25 at 2223, nausea & vomiting, 1st choice 0002 (See Alternative - Provider: Axel Torres RN)0858 (Given - Provider: Maria Guadalupe Cagle RN)1203 (See Alternative - Provider: Maria Guadalupe Cagle RN)1851 (Given - Provider: Shashank Chen, SINGH) 0109 (Given - Provider: Michael Bishop, SINGH)0801 (See Alternative - Provider: Mila De Leon RN)1626 (See Alternative - Provider: Rubia Velásquez RN)1930 (Given - Provider: Rubia Velásquez RN) 0326 (See Alternative - Provider: Patricia Herring, SINGH)0824 (MAR Hold - Provider: Interface, Incoming Adt - Reason: Procedure)1053 ([facility] Unhold - Provider: Interface, Incoming Adt) ondansetron (Zofran) injection 4-8 mg(Linked Group 2) 4-8 mg, Intravenous, EVERY 8 HOURS NEEDED, Starting on 02/08/25 at 0050, Until 02/16/25 at 2223, nausea & vomiting, 1st choice 0002 (Given - Provider: Axel Torres RN)0858 (See Alternative - Provider: Maria Guadalupe Cagle RN)1203 (Given - Provider: Maria Guadalupe Cagle RN)1851 (See Alternative - Provider: Shashank Chen RN) 0109 (See Alternative - Provider: Michael Bishop RN)0801 (Given - Provider: Mila De Leon RN)1626 (Given - Provider: Rubia Velásquez RN)1930 (See Alternative - Provider: Rubia Velásquez RN) 0326 (Given - Provider: Patricia Herring RN)0824 (MAR Hold - Provider: Interface, Incoming Adt - Reason: Procedure)1053 ([facility] Unhold - Provider: Interface, Incoming Adt) prochlorperazine (COMPAZINE) injection 5-10 mg 5-10 mg, Intravenous, EVERY 6 HOURS NEEDED, Starting on 02/10/25 at 1023, Until 02/16/25 at 2223, Nausea/Vomiting, 2nd choice, nausea 1955 (Given - Provider: Rubia Velásquez RN) 0920 (Given - Provider: Mila De Leon RN) 0439 (Given - Provider: Patricia Herring RN)0824 ([facility] Hold - Provider: Interface, Incoming Adt - Reason: Procedure)1053 ([facility] Unhold - Provider: Interface, Incoming Adt) saline with benzyl alcohol injection 0.1-0.3 mL 0.1-0.3 mL, Intradermal, NEEDED, Starting on 02/08/25 at 0049, Until 02/16/25 at 2223, IV start or restart 0824 ([facility] Hold - Provider: Interface, Incoming Adt - Reason: Procedure)1053 ([facility] Unhold - Provider: Interface, Incoming Adt) Vancomycin Pharmacy Consult Pneumonia diagnosis code: Suspected HAP/VAP (gram negative or MRSA pneumonia) 0824 ([facility] Hold - Provider: Interface, Incoming Adt - Reason: Procedure)1053 ([facility] Unhold - Provider: Interface, Incoming Adt) Linked Groups Order Group 1: varenicline tartrate (Chantix;Apo-Varenicline) tablet 0.5 mgJump to med 0.5 mg, oral, DAILY, 3 doses, First dose on Mon02/16/25 at 1245, Last dose on Mon02/18/25 at 0800 Followed by varenicline tartrate (Chantix;Apo-Varenicline) tablet 0.5 mgJump to med 0.5 mg, oral, TWICE A DAY, 8 doses, First dose on Mon02/19/25 at 0800, Last dose on Mon02/22/25 at 2000 Followed by varenicline tartrate (Chantix;Apo-Varenicline) tablet 1 mgJump to med 1 mg, oral, TWICE A DAY, First dose on Mon02/23/25 at 0800, Until Discontinued Group 2: ondansetron (Zofran) injection 4-8 mgJump to med 4-8 mg, Intravenous, EVERY 8 HOURS NEEDED, Starting on 02/08/25 at 0050, Until 02/16/25 at 2223, nausea & vomiting, 1st choice Or ondansetron (Zofran) disintegrating tablet 4-8 mgJump to med 4-8 mg, oral, EVERY 8 HOURS NEEDED, Starting on 02/08/25 at 0050, Until 02/16/25 at 2223, nausea & vomiting, 1st choice documented in this encounter Additional Health Concerns Infection Onset Date Last Indicated Resolved Time MRSA 02/09/2025 02/14/2025 documented as of this encounter
--- OUTSIDE RECORDS SUMMARY | 2025-02-09 10:00 | XMS_ITS | Encounter Summary ---
Author Organization [facility] Address [address] [place] [address] Care Team Providers Care Personnel Security Assistant Name Role Phone Unavailable Primary Care Provider Unavailabl e Reason for Visit * Inpatient Admission Specialty Diagnoses / Procedures Referred By Aristides t Referred To Contact Diagnoses Osteomyelitis Referral ID Status Reason Start Date Expiration Date Visits Re quested Visits Authorized [id number] 1 1 Encounter Details Date Type Department Care Team (Late st Contact Info) Description 02/09/2025 10:00 AM CDT - 02/09/2025 12:25 PM CDT Surgery [facility] Operating Room [address] [place] [address] [place] [address] [place] [id number] [facility] [address] [place] [address] RIGHT HAND IRRIGATION AND DEBRIDEMENT, Surgery Details Date/Time Status Location OR Service Patient Class Case Class Case Type Trauma Case? 02/09/2025 10:00 AM Posted [facility] ORS 06 Plastic Inpatient Class D Panel 1 Procedure LRB Anes Op Region Wound Class Comments RIGHT HAND IRRIGATION AND DEBRIDEMENT, Right General Hand Dirty (IV) AMPUTATION OF RIGHT INDEX FINGER Right General Finger Contaminated (III) Surgeon Surgeon Role Service Panel Taylor Gutierrez MD Primary Plastic 1 documented in this encounter Social History Tobacco Use Types Packs/Day Years Used Date Smoking Tobacco: Every Day Cigarettes Cigars Tobacco Cessation:Ready to Q uit: Yes; Counseling Given: Not Answered [facility] Utilities Answer Date Recorded In the past 12 months has e electric, gas, oil, or water company threatened to [...] any time in the past 12 m [facility], were you homeless or living in a correction (including now)? No 02/08/2025 Comments No Sex and Gender Information Value Date Recorded Sex Assigned at Not on file Legal Sex Female 8:23 PM CDT Gender Identity Not on file Sexual Orientation Not on file documented as of this encounter Last Filed Vital Signs Vital Sign Reading Time Taken Comments Blood Pressure 119/86 02/09/2025 12:15 PM CDT Pulse 83 02/09/2025 12:15 PM CDT Temperature 37.3 C (99.1 F) 02/09/2025 12:15 PM CDT Respiratory Rate 10 02/09/2025 12:15 PM CDT Oxygen Saturation 98% 02/09/2025 12:15 PM CDT Inhaled Oxygen Concentration - - [...] [facility] SUMMARY Patient Name: Hannah Loo Date of : 1980 Attending Provider: [...] middle finger, L middle finger Transferred from [place]. On arrival vital signs with borderline tachycardia [...] discharge. ?CAD EKG w poss prev septal [place] of indeterminate age. -- outpt stress test [...] hours for22 days Indications: ORTHO, BONE AND PORT LIONS JOINT INFECTIONS. Qty: 66 tablet, Refills: 0 nicotine (NICOTROL) 7 mg/24 hr TD patch Apply 1 patch (7 mg) to skin once daily. Qty: 30 patch, Refills: 0 sulfamethoxazole 800 mg-trimethoprim 160 mg (BACTRIM DS;SEPTRA DS) 800-160 mg oral tablet Take 1 tablet (160 mg) by mouth twice a day for 22 days Indications: ORTHO, BONE AND PORT LIONS JOINT INFECTIONS. Qty: 44 tablet, Refills: 0 [...] follow-up Taylor Gutierrez MD Specialty: Plastic Surgery [address] [facility] [address] [place] [address] Specify time frame for follow up?: 2 Weeks Call to make a follow-up appointment with Dr. Gutierrez (hand surgeon) for suture removal in [address] Gutierrez [phone] [facility] [place] Specialty: Gastroenterology, Hepatology [address] [place] [address] [address] [place] 200 [facility] [id number] Specify time frame for follow up?: 6 Weeks Instructions to follow-up provider: follow up in 8 weeks for repeat EGD Radha Anthony MD Specialty: Family Medicine [address] [place] [address] Specify time frame for follow up?: 1 Week Instructions to follow-up provider: follow up hospitalization, consider podiatry consult Discharge Procedure Orders BUN/Creatinine ([facility]) Standing Status: Future Standing Exp. Date: 02/13/26 Potassium, Serum Standing Status: Future Standing Exp. Date: 03/15/25 Discharge Instructions We would like a lab checked the week of February 24, these can be done with your primary clinic, or [facility] lab (creatinine and potassium), results should be faxed to [facility] Infectious Disease at [phone]. Dressing Change Twice daily dressing changes to right hand: Cover wound with non-stick (vaseline) gauze, wrap with roll gauze and NARCISA bandage. Ok to wash hand with soap and water. Follow Up with External Provider Referral Priority: Routine Referred to Provider: TAYLOR GUTIERREZ Number of Visits Requested: 1 Follow Up with External Provider Referral Priority: Routine Referral Location: [facility] Requested Specialty: Gastroenterology Number of Visits [...] completing the discharge summary. Molly Epps PA-C [facility] Medicine Available on [employer] or [employer] ([employer] 3981 - [phone] Cosigned by Michelle Pickering MD at 02/17/2025 11:15 AM CDT documented in this encounter Discharge Instructions * Attachments The following attachments cannot be sent through Care Everywhere. * Diet for Stomach Ulcers and Gastritis (AfterCare(R) Instructions(ER/ED)) ([place]) * Soft Diet (Discharge Care) ([place]) documented in this encounter Medications at Time [...] of this encounter Progress Notes * Rubia Velásquez RN - 02/16/2025 4:04 PM CDT Hannah Loo 1980 [id number] P: Discharge A: Discharged via wheelchair to home at 1600 escorted by nursing manager I: Discharge information and arrangements included: review of written discharge instructions, review of purpose and side effects of new medication, belongings list completed. R:Patient expressed understanding of information. * Subject, Mila SINGH Guillermo - 02/16/2025 2:10 PM CDT Med-Surg Care [...] Weight: 53.6 kg (118 lb 2.7 oz) [place] body weight: 47.8 kg (105 lb 6.1 [...] with questions. Keila Beckman PharmD, BCPS Phone: [phone] * Molly Epps PA-C - 02/16/2025 8:58 [...] middle finger, L middle finger Transferred from [place]. On arrival vital signs with borderline tachycardia [...] protocol ?CAD EKG w poss prev septal [place] of indeterminate age. -- outpt stress test [...] Intake/Output Summary (Last 24 hours) at 02/16/2025 0870 Last data filed at 02/16/2025 0700 Gross [...] Intravenous, Q8H, Yany Ingram MD, 10mL at 02/16/25523 [Transfer Hold] saline FLUSH syringe 10 mL, 10 mL, Intravenous, PRN, Yany Ingram MD, 10mL at 02/15/25921 [Transfer Hold] acetaminophen (TYLENOL) tablet 1,000 mg, 1,000 mg, oral, QID, Carlene Rosen PA-C, 1,000 mg at 02/15/252135 [Transfer Hold] D50W IV syringe 25-50 mL, 25-50 mL, Intravenous, PRN, Molly Epps PA-C, 25 mL at 02/14/252040 [Transfer Hold] dextrose 5% in water-lactated ringers IV infusion, , Intravenous, CONTINUOUS, Danielle Carrero, DO, Last Rate: 125 mL/hr at 02/16/25 020, New Bag at 02/16/25205 [Transfer Hold] famotidine (PEPCID) injection 20 mg, 20 mg, Intravenous, Twice Daily, Yany Ingram MD, 20 mg at 02/15/251929 [Transfer Hold] gabapentin (NEURONTIN) capsule 300 mg, 300 mg, oral, TID, Henna Paniagua, PLASTERING CONTRACTOR,SCHEDULING ADMINISTRATOR, 300 mg at 02/15/252135 [Transfer Hold] glucagon, human recombinant (Glucagen) injection (conc: 1 mg/mL) 1 mg, 1 mg, IntraMUSCULAR, Q 15 MINS PRN, Molly Epps PA-C [Transfer Hold] guaiFENesin (ROBITUSSIN) syrup 100 mg, 100 mg, oral, Q4H PRN, Danielle Carrero DO, 100 mg at 02/16/25 0428 [Transfer Hold] HYDROmorphone (Dilaudid) syringe 0.5-1 mg, 0.5-1 mg, Intravenous, Q4H PRN, Henna Paniagua APRN, SCHEDULING ADMINISTRATOR, 0.5 mg at 02/16/25 0326 [Transfer Hold] HYDROmorphone (DILAUDID) tablet 2-4 mg, 2-4 mg, oral, Q4H PRN, Henna Paniagua APRN, SCHEDULING ADMINISTRATOR, 4 mg at 02/16/25 0042 [Transfer Hold] [...] Rosen PA- C, 4 mg at 02/15/25 1930 [Transfer Hold] pantoprazole (Protonix) delayed release tablet 40 mg, 40 mg, oral, Twice Daily, Taylor Gutierrez MD, 40 mg at 02/15/25 1930 piperacillin-tazobactam (ZOSYN) 3.375 g in sodium chloride 0.9 % 100 mL IV piggyback, 3.375 g, Intravenous, Q8H (NS), Danielle Carrero, DO, Last Rate: 25 mL/hr at 02/16/25 [...] 5-10 mg, Intravenous, Q6H PRN, Lanie Sotelo, DNP,PLASTERING CONTRACTOR, 10 mg at 02/16/25 0439 [Transfer Hold] saline with benzyl alcohol injection 0.1-0.3 mL, 0.1-0.3 mL, Intradermal, PRN, Yany Ingram MD [Held by provider] sulfamethoxazole 800 mg-trimethoprim 160 mg (BACTRIM DS;SEPTRA DS) tablet 160 mg, 1 tablet, oral, Twice Daily, Loly Castaneda PA- C, 160 mg at 02/13/25 180 vancomycin (VANCOCIN) 1,000 mg in sodium chloride 0.9 % 250 mL IV piggyback, 20 mg/kg, Intravenous,Q12H (NS), Keila Beckman, Pharm D, Last Rate: 250 mL/hr at 02/16/25 020, 1,000 mg at 02/16/25 020 [Transfer Hold] Vancomycin Pharmacy Consult, 1 Consult, N/A, PRN, Danielle Carrero, Facility-Administered Medications Ordered in Other Encounters: lactated Ringers (LR) IV infusion, , Intravenous, CONTINUOUS PRN, Pamela Bass APRN, METAL WINDOW SCREEN ASSEMBLER, NewBag at 02/16/25 0850 lidocaine 2% injection (conc: 20 mg/mL), , Intravenous, PRN, Pamela Bass, PLASTERING CONTRACTOR, METAL WINDOW SCREEN ASSEMBLER, 100 mg at 02/16/25 0853 propofol 10 mg/mL (DIPRIVAN) IV injection-BOLUS, , Intravenous, PRN, Pamela Bass, PLASTERING CONTRACTOR, METAL WINDOW SCREEN ASSEMBLER, 150 mg at 02/16/25 0853 succinylcholine chloride (ANECTINE) injection, , Intravenous, PRN, Pamela Bass, PLASTERING CONTRACTOR, METAL WINDOW SCREEN ASSEMBLER, 100 mg at 02/16/25 0853 Results for [...] care with Dr. Pickering. Molly Epps PA-C, [facility] Medicine Available on [employer] or [employer] ([employer] 6592 - [phone] * Patricia Herring RN - 02/16/2025 5:28 [...] BM this shift. G- Glycemic Control: Accuchecks [id number] for poor intake and now NPO. T- Treatment: pain control, wound care, K/Mg protocol, plastics/ID following, IV abx I- Invasive Devices: PIV x2 D- Discharge: TBD * Subject, Mila Guillermo RN - 02/15/2025 2:30 PM CDT Med-Surg Care [...] Weight: 53.6 kg (118 lb 2.7 oz) [place] body weight: 47.8 kg (105 lb 6.1 oz) Adjusted ideal body weight: 50.1 kg (110 lb 7.9 oz) Labs: Recent Labs 02/15/25 0741 WBC 7.4 CREATININE 0.52* Date Day SCr CrCl Dose/Freq Time Level Comments 02/07 1 -- -- 1000 mg IV 2048* Given at OSH 02/08 2 0.28 >100 1000 mg q12h 08, 02/09 3 0.50 >100 1000 mg q12h 08, 20 02/10 4 0.82 65 1000 mg q12h 08 02/11 5 0.84 63 1250 mg q24h 06 02/12 6 0.78 68 1250 mg q24h 06 02/13 7 0.80 66 1250 mg q24h 06 AK'ed and restarted 02/14 8 0.65 81 1250 [...] to follow. Please call with questions. Keila Beckman, AngeliD, BCPS Phone: [phone] * Molly Epps PA-C - 02/15/2025 8:33 [...] middle finger, L middle finger Transferred from [place]. On arrival vital signs with borderline tachycardia [...] protocol ?CAD EKG w poss prev septal [place] of indeterminate age. -- outpt stress test [...] 300 mg, oral, TID, Henna Paniagua APRN, CNP, 300 mg at 02/14/25 2220 glucagon, human recombinant (Glucagen) injection (conc: 1 mg/mL) 1 mg, 1 mg, IntraMUSCULAR, Q 15 MINS PRN, Molly Epps PA-C guaiFENesin (ROBITUSSIN) syrup 100 mg, 100 mg, oral, Q4H PRN, Danielle Carrero DO, 100 mg at 02/14/25 0417 HYDROmorphone (Dilaudid) syringe 0.5-1 mg, 0.5-1 mg, Intravenous, Q4H PRN, Henna Paniagua APRN, REBECA HYDROmorphone (DILAUDID) tablet 2-4 mg, 2-4 mg, oral, Q4H PRN, Henna Paniagua APRN, CNP, 4 mg at 02/15/25 0046 hydrOXYzine pamoate [...] at 02/15/25 0706, 3.375 g at 02/15/25 07 polyethylene glycol (MIRALAX) packet 17 g, 17 g, oral, DAILY, Carlene Rosen PA-C POTASSIUM REPLACEMENT INTRAVENOUS - NOT FOR DOCUMENTATION PURPOSES, , Intravenous, PER PROTOCOL, Yany Ingram MD POTASSIUM REPLACEMENT ORAL - NOT FOR DOCUMENTATION PURPOSES, , oral, PER PROTOCOL, Yany Ingram MD prochlorperazine (COMPAZINE) injection 5-10 mg, 5-10 mg, Intravenous, Q6H PRN, Lanie Sotelo, DNP,PLASTERING CONTRACTOR, 5 mg at 02/14/251954 saline with benzyl [...] 0121 Vancomycin Pharmacy Consult, 1 Consult, N/A, MATT, Danielle Carrero, Results for orders placed or performed during [...] REPORT SIGNED BY MD Molly Rhodes PA-C, [facility] Medicine Available on [employer] or [employer] ([employer] 2993 - 8896 * Michael Bishop RN - 02/15/2025 6:10 [...] increase to 125 mL/hr. Danielle Carrero DO [facility] Medicine Update: Bg 61 overnight. Per RN, [...] NUTRITION-RELATED H&P Pre-Admission Nutrition History: Regular intakes [facility] Other Pertinent Factors: NA Anthropometric/Physical: Height: 5' [...] (02/14/2025 9:05 AM) Bowel Meds: Scheduled per NOV Labs: Lab Results Component Value Date CREACTIVEPRT [...] 300 mg oral TID Henna Paniagua APRN, SCHEDULING ADMINISTRATOR 300 mg at 02/14/25 1406 glucagon, human recombinant (Glucagen) injection (conc: 1 mg/mL) 1 mg 1 mg IntraMUSCULAR Q 15 MINS PRN Molly Epps PA-C guaiFENesin (ROBITUSSIN) syrup 100 mg 100 mg oral Q4H PRN Danielle Carrero DO 100 mg at 02/14/25 0417 HYDROmorphone (Dilaudid) syringe 0.5-1 mg 0.5-1 mg Intravenous Q4H PRN Henna Paniagua APRN, SCHEDULING ADMINISTRATOR HYDROmorphone (DILAUDID) tablet 2-4 mg 2-4 mg oral Q4H PRN Henna Paniagua APRN, SCHEDULING ADMINISTRATOR 4 mg at 02/14/25 1618 hydrOXYzine pamoate [...] 5-10 mg Intravenous Q6H PRN Lanie Sotelo, DNP,PLASTERING CONTRACTOR saline with benzyl alcohol injection 0.1-0.3 mL 0.1-0.3 mL Intradermal PRN Yany Ingram MD senna (SENOKOT) tablet 8.6-17.2 mg 1-2 tablet oral QPM Carlene Rosen PA-C 17.2 mg at 02/12/252021 [Held by provider] sulfamethoxazole 800 mg-trimethoprim 160 mg (BACTRIM DS;SEPTRA DS) tablet 160 mg1 tablet oral Twice Daily Loly Castaneda PA-C 160 mg at 02/13/251808 [START ON 02/15/2025] vancomycin (VANCOCIN) 1,000 mg in sodium chloride 0.9 % 250 mL IV piggyback 20mg/kg Intravenous Q18H (NS) Carrington Erickson (February), Pharm D Vancomycin Pharmacy Consult 1 Consult N/A PRN Danielle Carrero, Nutrition Diagnosis Inadequate protein-energy intake related to [...] - 02/14/2025 1:51 PM CDT New Referral [facility] ([facility]) received referral for possible home IV abx [...] further information/teaching as needed. Tyesha Morales RN [facility] Clinical Liaison * Conrad [...] Lucio MD Infectious diseases * Lanie Sotelo DNP,PLASTERING CONTRACTOR - 02/14/2025 10:01 AM CDT PLASTIC SURGERY [...] updated hospital med team Lanie Sotelo APRN, DNP * Nellie Lucio PT - 02/14/2025 8:49 [...] middle finger, L middle finger Transferred from [place]. On arrival vital signs with borderline tachycardia [...] and was supposed to have EGD at [place] but wasn't able to advance scope (?stricture, [...] protocol ?CAD EKG w poss prev septal [place] of indeterminate age. -- outpt stress test [...] mg, Intravenous, Q4H PRN, Henna Paniagua APRN, SCHEDULING ADMINISTRATOR HYDROmorphone (DILAUDID) tablet 2-4 mg, 2-4 mg, oral, Q4H PRN, Henna Paniagua APRN, REBECA, 4 mg at 02/14/25 0521 hydrOXYzine pamoate [...] mg, 500 mg, oral, QID, Henna Paniagua, PLASTERING CONTRACTOR, SCHEDULING ADMINISTRATOR, 500 mg at 02/13/252113 [Held by provider] [...] 5-10 mg, Intravenous, Q6H PRN, Lanie Sotelo, PRASANNA,PLASTERING CONTRACTOR saline with benzyl alcohol injection 0.1-0.3 mL, 0.1-0.3 mL, Intradermal, PRN, Yany Ingram MD senna (SENOKOT) tablet 8.6-17.2 mg, 1-2 tablet, oral, QPM, Carlene Rosen PA-C, 17.2 mg at 02/12/252021 [Held by provider] sulfamethoxazole 800 mg-trimethoprim 160 mg (BACTRIM DS;SEPTRA DS) tablet 160 mg, 1 tablet, oral, Twice Daily, Loly Castaneda PA- C, 160 mg at 02/13/251808 vancomycin (VANCOCIN) 1,250 mg in sodium chloride [...] care with Dr. Pickering. Molly Epps PA-C, [facility] Medicine Available on [employer] or [employer] ([employer] 2474 - 9350 * Danielle Carrero DO - 02/13/2025 11:21 [...] with them in AM. Danielle Carrero DO [facility] Medicine * Rubia Velásquez RN - 02/13/2025 [...] Subcategory Concern(s): Sensory Perception: Slightly Limited Sensory Interventions: Appropriate support surface and Pain control Moisture: Rarely [...] CDT HOSPITAL ID FOLLOW-UP NOTE Discussed with LPN HOME HEALTH: Wet gangrene, and osteomyelitis of Rt index [...] and K checked the week of February 2, pt says she can do this with [...] race. Imaging: reviewed Loly Castaneda PA-C Pager [phone] or moreliaon * Lanie Sotelo DNP,PLASTERING CONTRACTOR - 02/13/2025 9:38 AM CDT PLASTIC SURGERY [...] takes 10 mg oxycodone BID at home [employer]. OBJECTIVE Temp (24hrs), Av.2 ??F (36.8 ??C), [...] Sotelo APRN, PRASANNA * Henna Paniagua APRN, SCHEDULING ADMINISTRATOR - 02/13/2025 8:05 AM CDT Images from [...] acute distress, resting comfortably. HEENT: Normocephalic, atraumatic. SOBOBA (hears better w low pitch) RESPIRATORY: Lungs [...] Results Component Value Date EKG 02/08/2025 Comment: [facility] Test Date: 2025-02-08 Pat Name: HANNAH LOO Department: A7 Room: [facility] Gender: F Food Safety Scientist: SALMAMARCELOMARTHA : 1980 Requested By: YANY INGRAM MD Order Number: [id number] Reading MD: YANY INGRAM MD Measurements Intervals [place] Rate: 95 P: 74 NH: 140 QRS: 24 QRSD: 95 T: 60 [...] with orthopedic surgery and vascular surgery at [facility], who recommended transfer to [facility] for hand specialist evaluation. Patient was started [...] and was supposed to have EGD at [place] but wasn't able to advance scope (?stricture, [...] protocol ?CAD EKG w poss prev septal [place] of indeterminate age. -outpt stress test CODE [...] visit was 50 minutes and included: Direct mtpm-zd-wiel time, Review of records, Coordination of care, and Documentation of visit, adjusted pain regimen, spoke with family via phone. Henna Paniagua DNP, PLASTERING CONTRACTOR, SCHEDULING ADMINISTRATOR, [facility] Medicine * Paula Vegas RN - 02/13/2025 [...] Progression Note Type: Shift to shift summary [id number] Length of stay: 4 days Code Status: [...] of acceptable comfort Outcome: Ongoing * Henna Paniagua APRN, SCHEDULING ADMINISTRATOR - 02/12/2025 8:30 AM CDT Images from [...] acute distress, resting comfortably. HEENT: Normocephalic, atraumatic. SOBOBA (hears better w low pitch) RESPIRATORY: Lungs [...] Results Component Value Date EKG 02/08/2025 Comment: [facility] Test Date: 2025-02-08 Pat Name: HANNAH LOO Department: A7 Room: A783 Gender: F Food Safety Scientist: DWIGHT : 1980 Requested By: YANY INGRAM MD Order Number: [id number] Reading MD: YANY INGRAM MD Measurements Intervals [place] Rate: 95 P: 74 NH: 140 QRS: 24 QRSD: 95 T: 60 [...] with orthopedic surgery and vascular surgery at [facility], who recommended transfer to [facility] for hand specialist evaluation. Patient was started [...] and was supposed to have EGD at [place] but wasn't able to advance scope (?stricture, [...] protocol ?CAD EKG w poss prev septal [place] of indeterminate age. -outpt stress test CODE STATUS: Full Code DVT prophylaxis: none w plan for procedure today, ambulatory GI prophylaxis: PPI ACCESS: PIV RESTRAINTS: none DISPOSITION: Anticipated date of discharge 3+ days, Criteria for discharge is additional plastics procedure, wound cx results, transitioned to PO abx, cleared by Plastics, improvement in Cr, stability for dc. Family Communication: daughter, Daniela via phone Case discussed with Dr. Pickering [...] visit was 35 minutes and included: Direct lvdw-oa-pfet time, Review of records, Coordination of care, and Documentation of visit, discussed with Plastic surgery GREGG and spoke with family via phone. Henna Paniagua DNP, PLASTERING CONTRACTOR, SCHEDULING ADMINISTRATOR, AGACNP-BC [facility] * Lanie Sotelo, PRASANNA,EDI - 02/12/2025 7:12 AM CDT PLASTIC SURGERY [...] ABX recommendations -discussed with bedside RN, ID MD and [facility] med BINDERY LIBRARY TECHNICAL ASSISTANT Lanie Sotelo PLASTERING CONTRACTOR, PRASANNA * Louann Hadley RN - 02/12/2025 6:36 AM CDT Med-Surg Care Progression Note Type: Shift to shift summary 7p-7a Length of stay: 4 days Code Status: [...] Progression Note Type: Shift to shift summary [id number] Length of stay: 3 days Code Status: [...] Light on Outside Patient Room Fall Risk mission worker Door (NMR) Mobility Safety Interventions: Standard Interventions [...] RN receiving care * Henna Paniagua APRN, SCHEDULING ADMINISTRATOR - 2025 8:54 AM CDT Images from [...] acute distress, resting comfortably. HEENT: Normocephalic, atraumatic. SOBOBA (hears better w low pitch) RESPIRATORY: Lungs [...] Results Component Value Date EKG 02/08/2025 Comment: [facility] Test Date: 2025-02-08 Pat Name: HANNAH LOO Department: A7 Room: [facility] Gender: F Food Safety Scientist: DWIGHT : 1980 Requested By: YANY INGRAM MD Order Number: [id number] Reading MD: YANY INGRAM MD Measurements Intervals [place] Rate: 95 P: 74 NH: 140 QRS: 24 QRSD: 95 T: 60 [...] with orthopedic surgery and vascular surgery at [facility], who recommended transfer to [facility] for hand specialist evaluation. Patient was started [...] and was supposed to have EGD at [place] but wasn't able to advance scope (?stricture, [...] protocol ?CAD EKG w poss prev septal [place] of indeterminate age. -outpt stress test CODE [...] visit was 35 minutes and included: Direct herz-hz-yenu time, Review of records, Coordination of care, and Documentation of visit. Henna Paniagua DNP, PLASTERING CONTRACTOR, SCHEDULING ADMINISTRATOR, [facility] Medicine * Louann Hadley RN - 2025 2:59 AM CDT Med-Surg Care Progression Note Type: Shift to shift summary 7p- Length of stay: 3 days Code Status: Full Code Primary Problem: Osteomyelitis (Hands pain, Gangrene) 02/09 I&D and R index finger amputation Pain never below 8 on scale. Oxy/vist/Nila given and using dilaudid for breakthrough. NPO [...] Progression Note Type: Shift to shift summary [id number] Length of stay: 2 days Code Status: [...] of Falls/Injury Outcome: Ongoing Flowsheets (Taken 02/10/2025 8141) Environmental Safety Interventions: Standard Interventions in Place Fall Risk Light on Outside Patient Room Fall Risk mission worker Door (NMR) Mobility Safety Interventions: Standard Interventions [...] acute distress, resting comfortably. HEENT: Normocephalic, atraumatic. SOBOBA (hears better w low pitch) RESPIRATORY: Lungs [...] Results Component Value Date EKG 02/08/2025 Comment: [facility] Test Date: 2025-02-08 Pat Name: HANNAH LOO Department: A7 Room: A783 Gender: F Food Safety Scientist: DWIGHT : 1980 Requested By: YANY INGRAM MD Order Number: [id number] Reading MD: YANY INGRAM MD Measurements Intervals [place] Rate: 95 P: 74 NH: 140 QRS: 24 QRSD: 95 T: 60 [...] with orthopedic surgery and vascular surgery at [facility], who recommended transfer to [facility] for hand specialist evaluation. Patient was started [...] and was supposed to have EGD at [place] but wasn't able to advance scope (?stricture, [...] protocol ?CAD EKG w poss prev septal [place] of indeterminate age. -outpt stress test CODE [...] index finger Carlene Rosen (previously SALEEM [facility] Medicine Available through [employer] ([employer] 8:00am-6:00pm * Katheryn Mai PT - 02/10/2025 9:55 AM CDT Physical Therapy Attempted PT evaluation this AM however patient declined d/t not feeling well and needing to have emesis. Sales Support Technician provided emesis bucket per request and updated RN. PT to re-attempt tomorrow as schedule allows. * Lanie Sotelo DNP,PLASTERING CONTRACTOR - 02/10/2025 7:33 AM CDT PLASTIC SURGERY [...] regular diet Ulcer prophylaxis: protonix and pepcid ([facility] meds) DVT prophylaxis: mechanical, mobilize Mobility issues: [...] Progression Note Type: Shift to shift summary [id number] Length of stay: 2 days Code Status: [...] am - 11:00 pm please re-consult through Sun[employer]. After hours orfor urgent requests, page the on-call data collection interviewer. Rev. Haily Noel MA Bag Checker 02/09/2025 * Lynnette Donald RN - 02/09/2025 [...] Results Component Value Date EKG 02/08/2025 Comment: [facility] Test Date: 2025-02-08 Pat Name: HANNAH LOO Department: A7 Room: A783 Gender: F Food Safety Scientist: SUNILOLLIE : 1980 Requested By: YANY INGRAM MD Order Number: [id number] Reading MD: YANY INGRAM MD Measurements Intervals [place] Rate: 95 P: 74 NH: 140 QRS: 24 QRSD: 95 T: 60 [...] with orthopedic surgery and vascular surgery at [facility], who recommended transfer to [facility] for hand specialist evaluation. Patient was started [...] protocol ?CAD EKG w poss prev septal [place] of indeterminate age. -outpt stress test CODE [...] Location: Hand Carlene Rosen (previously [facility] Medicine Available through AFreezeon 8:00am-6:00pm * Mecredez Hui RN - 02/09/2025 6:14 AM CDT Med-Surg Care Progression Note Type: Shift to shift summary [id number] Length of stay: 1 days Code Status: [...] acute distress, resting comfortably. HEENT: Normocephalic, atraumatic. SOBOBA RESPIRATORY: Lungs clear to auscultation bilaterally. Symmetrical [...] Results Component Value Date EKG 02/08/2025 Comment: [facility] Test Date: 2025-02-08 Pat Name: HANNAH LOO Department: A7 Room: A783 Gender: F Food Safety Scientist: DWIGHT : 1980 Requested By: YANY INGRAM MD Order Number: [id number] Reading MD: YANY INGRAM MD Measurements Intervals [place] Rate: 95 P: 74 NH: 140 QRS: 24 QRSD: 95 T: 60 [...] with orthopedic surgery and vascular surgery at [facility], who recommended transfer to [facility] for hand specialist evaluation. Patient was started [...] protocol ?CAD EKG w poss prev septal [place] of indeterminate age. -outpt stress test CODE [...] Location: Hand Carlene Rosen (previously [facility] Medicine Available through AFreezeon 8:00am-6:00pm * Paula Vegas RN - 02/08/2025 [...] diet order pt inform. HX: history of Newyb's disease and ongoing tobacco use with a [...] to call for help, name of assigned senior care specialist, How to Call a Response Team, initial [...] with orthopedic surgery and vascular surgery at [facility], who recommended transfer to [facility] for hand specialist evaluation. Patient was started [...] with orthopedic surgery and vascular surgery at [facility], who recommended transfer to [facility] for hand specialist evaluation. Patient was treated [...] concerning for possible osteomyelitis. On arrival to [facility] afebrile, vitally stable. Wbc 15.5, [...] General Diagnosis: Osteomyelitis Admission/Diagnosis Details: Transferred from [facility] with wet gangrene of R hand with [...] program. Pt unwilling to perform though requested publicity writer to go over exercises with her and pt family in room.Reviewed supine, seated, and standing HEP with recommendations of sets/ reps. Encouraged outpatientPT follow up if pt needs more specialized program. [facility] AM-PAC 6-Clicks Turning over in bed (including [...] - GASTROENTEROLOGY Patient Name: Hannah Loo Address: [address] [place], [place] [id number] Age:45 y.o. Sex: female Admission Date/Time: 02/08/2025 12:26 AM Requesting Physician: Raheel [facility] Attending Physician: Michelle Pickering MD I was [...] discussed with orthopedic surgery andvascular surgery at [facility], who recommended transfer to [facility] for hand specialist evaluation. Patient was treated [...] history. Of note she was hospitalized in [place] recently and EGD was attempted but she [...] 300 mg, 300 mg, oral, TID, Henna Paniagua, PLASTERING CONTRACTOR, SCHEDULING ADMINISTRATOR, 300 mg at 02/14/25 2220 glucagon, human recombinant (Glucagen) injection (conc: 1 mg/mL) 1 mg, 1 mg, IntraMUSCULAR, Q 15 MINS PRN, Molly Epps PA-C guaiFENesin (ROBITUSSIN) syrup 100 mg, 100 mg, oral, Q4H PRN, Danielle Carrero DO, 100 mg at 02/14/25 0417 HYDROmorphone (Dilaudid) syringe 0.5-1 mg, 0.5-1 mg, Intravenous, Q4H PRN, Henna Paniagua APRN, SCHEDULING ADMINISTRATOR, 0.5 mg at 02/15/25 1150 HYDROmorphone (DILAUDID) tablet 2-4 mg, 2-4 mg, oral, Q4H PRN, Henna Paniagua APRN, SCHEDULING ADMINISTRATOR, 4 mg at 02/15/25 0046 hydrOXYzine pamoate [...] Loly Castaneda PA-C,500 mg at 02/13/25 2114 nicotine (NICOTROL) 7 mg/24 hr patch 7 [...] mg, 5-10 mg, Intravenous, Q6H PRN, Lanie Stoelo, PRASANNA,PLASTERING CONTRACTOR, 10 mg at 02/15/25 0920 saline with [...] Pharmacy Consult, 1 Consult, N/A, MATT, Danielle Carrero, DO ALLERGIES/SENSITIVITIES No Known Allergies FAMILY HISTORY [...] 60 - 100 mg/dL EGD December 2024 ([place]) - procedure aborted at 15cm, esophageal stenosis suspected CT abd/pelvis December 2024 ([place]) - no acute abnormalities Abdominal pain Vomiting [...] NSAIDS - colonoscopy recommended, pt declines D/w SAMREEN Stiles-C ADDENDUM TO [facility] GI CONSULT SERVICE NOTE I, Chava Erickson [...] Weight: 53.6 kg (118 lb 2.7 oz) [place] body weight: 47.8 kg (105 lb 6.1 [...] q24h 06 02/15 9 1000 mg q18h () ASSESSMENT/PLAN 44 yo female admitted for osteomyelitis. [...] be completed: 02/15 Discharge Recommendation: N/A Eleanor Mckinley Pharm D Pharmacy will continue to follow. Please call with questions. Phone #: [phone] * Luis Guzman, Pharm D - 02/13/2025 [...] Weight: 53.6 kg (118 lb 2.7 oz) [place] body weight: 47.8 kg (105 lb 6.1 [...] follow. Please call with questions. Phone #: [phone] * Carrington Erickson (February), Pharm D - [...] Weight: 53.6 kg (118 lb 2.7 oz) [place] body weight: 47.8 kg (105 lb 6.1 [...] and cx sensitivities Discharge Recommendation: N/A Angeli DanielsD Pharmacy will continue to follow. Please call with questions. Phone #: [phone] * Conrad Lucio MD - 02/12/2025 12:21 PM CDTAssociated Order(s): CONSULT INFECTIOUS DISEASE INFECTIOUS DISEASE CONSULTATION NOTE 02/12/2025 Patient Name: Hannah Loo Age:45 y.o. Sex: female Admission Date/Time: 02/08/2025 12:26 AM Hospital Attending Physician: Michelle Pickering MD Primary Care Provider: No primary care provider on file. CONSULTATION ASSESSMENT Wet gangrene, and osteomyelitis of Rt index finger, s/p amputation at MCP joint (5/18, 02/11). Intraop cx on 02/09 with MRSA, [...] h/o Buerger's disease, smoker is transferred from [facility] for right index finger gangrene and [...] mg 200 mg oral TID Lanie Sotelo, PRASANNA,PLASTERING CONTRACTOR 200 mg at 742 HYDROmorphone (Dilaudid) syringe [...] 5-10 mg Intravenous Q6H PRN Lanie Sotelo, DNP,PLASTERING CONTRACTOR saline with benzyl alcohol injection 0.1-0.3 mL 0.1-0.3 mL Intradermal PRN Yany Inrgam MD senna (SENOKOT) tablet 8.6-17.2 mg 1-2 tablet oral QPM Carlene Rosen, PAIrisC vancomycin (VANCOCIN) 1,250 mg in sodium chloride [...] General Diagnosis: Osteomyelitis Admission/Diagnosis Details: Transferred from [facility] with wet gangrene of R hand with [...] from further stairs due to IV pole [facility] AM-PAC 6-Clicks Turning over in bed (including [...] Total Billable Minutes: 20 Minutes * Socorro Blount, OT - 02/12/2025 10:40 AM CDT Occupational [...] of food, dycem, and built up foam notching machine operator handles. Pt completed bed mobility, transfers, and [...] osteo without presence of gas. Transferred to [facility] for hand/plastics specialist. Found to [...] Patient is independent with: Feeding, Grooming, Bathing, Dealer Analyst, Medication Management, Driving Patient needs assist with: [...] None AM-PAC Daily Activity Raw Score: 17 AM-[facility] Daily Activity CMS 0-100% Score: 50.11 AM-PAC [...] with eating, including dycem, built up foam coat joiner lockstitch, and rocker knife. FUNCTIONAL MOBILITY Bed Mobility [...] Weight: 53.6 kg (118 lb 2.7 oz) [place] body weight: 47.8 kg (105 lb 6.1 [...] follow. Please call with questions. Phone #: [phone] * Irma Zheng, Pharm D - 2025 9:08 AM CDT Pharmacy [...] Weight: 53.6 kg (118 lb 2.7 oz) [place] body weight: 47.8 kg (105 lb 6.1 [...] ongoing therapy is anticipated. Return to OR [facility] 02/11 for repeat I & D and [...] follow. Please call with questions. Phone #: [phone] * Carrington Erickson (February), Pharm D - [...] Weight: 53.6 kg (118 lb 2.7 oz) [place] body weight: 47.8 kg (105 lb 6.1 [...] 02/08 2 0.28 >100 1000 mg Q12H , 20 02/09 3 0.5 >100 1000 [...] follow. Please call with questions. Phone #: [phone] * Jeni Nina, Pharm D - 02/09/2025 [...] Weight: 53.6 kg (118 lb 2.7 oz) [place] body weight: 47.8 kg (105 lb 6.1 [...] to be completed 02/10/25 Discharge Recommendation: N/A Angeli McdonaldD, [facility] Pharmacy will continue to follow. Please call with questions. Phone #: [phone] * Taylor Gutierrez MD - 02/08/2025 1:14 [...] 7 mg, 1 patch, Transdermal, DAILY, Carlene Rosen, PAIrisC ondansetron (Zofran) injection 4-8 mg, 4-8 mg, [...] 0837 Vancomycin Pharmacy Consult, 1 Consult, N/A, PRN, Yany Ingram MD ALLERGIES: No Known Allergies SOCIAL HISTORY: [...] Weight: 53.6 kg (118 lb 2.7 oz) [place] body weight: 47.8 kg (105 lb 6.1 oz) Adjusted ideal body weight: 50.1 kg (110 lb 7.9 oz) Labs: Recent Labs 02/08/25 0145 WBC 15.5* CREATININE 0.28* Date Day Scr CrCL Dose/Freq Time Level Comments 02/07 1 1000 mg IV 2048* Given at OSH 02/08 2 0.28 >100 1000 mg Q12H ASSESSMENT/PLAN 44 yo female admitted for osteomyelitis. [...] goal: AUC 400-600mg*hr/L Next vancomycin level due: 5/18 AM Antibiotic time-out to be completed 02/10/25 Discharge Recommendation: N/A Angeli McdonaldD, [facility] Pharmacy will continue to follow. Please call with questions. Phone #: [phone] * Taylor Gutierrez MD - 02/08/2025 6:07 AM CDTAssociated Order(s): CONSULT PLASTIC SURGERY Brief Consult Note Dr. Ingram requested my evaluation of Ms Loo for defintiive management of wet gangrene of right index finger. The patient is a 44 yo smoker who was transferred from [facility] due to wet gangrene of the right [...] Weight: 53.6 kg (118 lb 2.7 oz) [place] body weight: 47.8 kg (105 lb 6.1 [...] follow. Please call with questions. Phone #: [phone] documented in this encounter Nursing Notes * [...] as needed Outcome: Met this shift * Rubia Velásquez RN - 02/15/2025 5:57 PM CDT [...] this shift Flowsheets Taken 02/15/2025 0429 by Chris Cristina Environmental Safety Interventions: Standard Interventions in [...] Met this shift * Danyelle De La Garza OT - 02/13/2025 2:02 PM CDT Occupational Therapy Acute Treatment Patient Name: Hannah oLo Today's Date: 02/13/2025 Admission Date: 02/08/2025 ASSESSMENT/PLAN/RECOMMENDATIONS [...] Treatment Diagnosis: Osteomyelitis Admission/Diagnosis Details: Transferred from [facility] with wet gangrene of R hand with [...] None AM-PAC Daily Activity Raw Score: 20 AM-PAC Daily Activity CMS 0-100% Score: 38.32 AM-PAC [...] Hospital ) F/O Payor/Plan Precert # MEDICAID/MEDICAID [place] Subscriber Subscriber # Hannah Loo [id number] Address Phone [address] [address] [place] [address] Care Coordination Plan & Communication with Patient/Family: Moving independent in the room [facility] (intake # [phone]; nurses # [phone]), to check insurance coverage for home IV antibiotics, if ordered. Plan: Overall discharge plan has yet to be determined pending hospital course and progression with therapies. Nurse Maori Physiotherapist will continue to follow to assist with discharge needs. - [facility] (intake # [phone]; nurses # [phone]), to check insurance coverage for home IV antibiotics, if ordered. Raudel Kamara RN-Case Management. # [phone] * Mercedez Hui RN - 02/10/2025 3:09 [...] Support Systems: Family members Fely Barnes (ROCK) [phone] (M) Brandin Loo (SON) [phone] (M) Primary Decision Maker: Patient DME Prior [...] daughter shared that she currently lives in [place] but pt has a lot of people looking out for her. Pt's PCP is Dr. Radha Anthony at [facility]. She does not anticipate any d/c needs. SW will follow in the event any needs arise. Care management will continue to follow. CHUCK Groves, [facility] Pager: [phone] * Bárbara Segundo RN - 02/09/2025 12:32 PM CDT PACU POSTOP END OF SHIFT SBAR S: Situation/ B: Background Patient s/p right hand irrigation and debridement and amputation of right index finger under general anesthesia. To PACU at 1149 from OR. Placed on full monitors. PMH: Buergers disease, osteomyelitis, anemia A: Assessment Incision: right hand Dressing: gauze, cast padding, narcisa Pain: 10 - medicated with PO and IV meds [...] of bilateral hands SURGEON: Taylor Gutierrez MD NURSE SITTER: Pippa Putnam RN-CPSN DATE OF SERVICE: 2025 [...] saline and hydrogen peroxide. The irrigant was lamp cleaner now. The skin was closed in [...] right index finger SURGEON: Taylor Gutierrez MD NURSE SITTER: none DATE OF SERVICE: February 09, 2025 [...] with longstanding Buerger's disease, who presented to 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 XR suspicious for osteomyelitis, no visible gas. Given Zosyn. Will also receive vancomycin. The case was discussedwith orthopedic surgery and vascular surgery at [facility]. They recommended transfer to [facility] for hand specialist evaluation. K 2.7 -- being replaced in the ED. Lactic acid normal, renal function normal. Anticipated status: Inpatient. Full History/Physical and admission orders to be completed upon arrival Please notify bed placement upon arrival at [phone] Admitting MD will be assigned after arrival Adria Hare MD [facility] Medicine documented in this encounter Miscellaneous Notes * Med Reconciliation - Jeni Nina, Pharm D - 02/08/2025 11:28 AM CDT PHARMACY MEDICATION RECONCILIATION NOTE MEDICATION RECONCILIATION on admission by pharmacy has been completed. Prior to admission medications were reviewed with patient The [facility] medication list has been updated and reflected in the chart below. Please use the [facility] medication section for ordering home doses during [...] in the care of this patient. Phone #:[phone] or [phone] Time spent reconciling meds:15 min Location: face [...] - 2.6 mg/dL 02/16/2025 3:05 PM CDT [facility] Blood Venipuncture / Unknown 02/16/2025 2:35 PM CDT 02/16/2025 2:38 PM CDT us Molly Epps PA-C CHEMISTRY ORDERABLE Final Result [facility] [address] [place] [address] * Potassium (02/16/2025 2:35 PM CDT) Only the most recent of6 resultswithin the time period is included. Potassium 4.0 3.4 - 5.1 mmol/L 02/16/2025 2:59 PM CDT [facility] Blood Venipuncture / Unknown 02/16/2025 2:35 PM CDT 02/16/2025 2:38 PM CDT us Molly Epps PA-C CHEMISTRY ORDERABLE Final Result Performing Organization Address [facility] Co de Phone Number [facility] [address] [place] [address] * (ABNORMAL) POCT Glucose Meter (02/16/2025 1:58 PM CDT) Only the most recent of13 resultswithin the time period is included. GLUCOSE WB METER 156(H) 60 - 100 mg/dL 02/16/2025 2:16 PM CDT [facility] Blood 02/16/2025 1:58 PM CDT 02/16/2025 2:16 PM CDT Michelle Pickering MD LAB POINT OF CARE TEST RESULTS F inal Result Performing Organization Address [facility] de Phone Number [facility] [address] [address] * Surgical Pathology (02/16/2025 9:21 AM CDT) Only the most recent of2 resultswithin the time period is included. Case Report Surgical Pathology Case: [id number] Authorizing Provider: Chava Erickson MD Collected: 02/16/2025 09:21 AM Ordering Location: [facility] Received: 02/18/2025 09:11 AM Hospital Advanced Procedure Unit Pathologist: Christian Marquis MD Specimens: A) - Stomach (Specify) B) - Esophagus 02/19/2025 3:31 PM CDT [facility] Final Diagnosis A. Stomach, biopsy: Mild chronic inactive gastritis. Helicobacter pylori-like organisms are not identified on H&E stain. Negative for goblet cell metaplasia, dysplasia and malignancy. B. Esophagus, biopsy: Reactive squamous mucosa with fibrinopurulent exudate (ulcerative esophagitis). Viral cytopathic effect is not identified. Fungal organisms are identified. Negative for dysplasia, and malignancy. 02/19/2025 3:31 PM CDT [facility] at 1531 CDT Comment The fungal organisms are composed of yeast forms, suggestive of marta species. 02/19/2025 3:31 PM CDT [facility] Gross Description A. Stomach biopsy: Six up to 0.3 cm. IT-1. B. Esophagus biopsy: Four up to 0.3 cm. IT-1. 02/19/2025 3:31 PM CDT [facility] Microscopic Description The final diagnosis is based on the microscopic examination of all the slides. Block B is stained with PAS for fungal organisms. Fungal organisms are identified on the edge of the fibrinopurulent exudate and the surface of the squamous mucosa. 02/19/2025 3:31 PM CDT [facility] Tissue STOMACH STRUCTURE / Unknown 02/16/2025 9:21 AM CDT 02/18/2025 9:11 AM CDT Comment:Pre-op diagnosis: Nausea and vomiting, unspecified vomiting type [R11.2] Dysphagia, unspecified type [R13.10] Tissue specimen (specimen) ESOPHAGEAL STRUCTURE / Unknown 02/16/2025 9:23 AM CDT 02/18/2025 9:11 AM CDT Comment:Pre-op diagnosis: Nausea and vomiting, unspecified vomiting type [R11.2] Dysphagia, unspecified type [R13.10] us Chava Erickson MD PATHOLOGY/CYTOLOGY ORDERA BLE Final Result Performing Organization Address City/State/[facility] Co de Phone Number [facility] [address] [place] [address] * Endoscopy (02/16/2025 7:57 AM CDT) 02/16/2025 7:57 AM CDT Narrative TEST - 02/16/2025 10:00 AM CDT [facility] Patient Name: Hannah Loo Procedure Date: 02/16/2025 [...] sign off Procedure Code(s): --- Professional --- 74958, Esophagogastroduodenoscopy, flexible, transoral; with biopsy, single or multiple Diagnosis Code(s): --- Professional --- K20.90, Esophagitis, unspecified without bleeding K31.89, Other diseases of stomach and duodenum K26.9, Duodenal ulcer, unspecified as acute or chronic, without hemorrhage or perforation CPT copyright 2021 [employer]. All rights reserved. The codes documented in this report are preliminary and upon collar worker review may be revised to meet current compliance requirements. MD Chava Hua MD 02/16/2025 10:00:36 AM This report has been signed electronically.Chava Erickson MD Number of Addenda: 0 Note Initiated On: 02/16/2025 7:57 AM [address] [id number] Procedure Note Chava Erickson MD - 02/16/2025 [facility] Patient Name: Hannah Loo Procedure Date: 02/16/2025 7:57 AM Date of : 1980 Note Status: Finalized Attending MD: Chava Erickson MD, Procedure: Upper GI endoscopy Indications: Iron deficiency anemia Providers: Chava Erickson MD, Nellie Hastings, SINGH, Laura Dwyer RN, Chava Erickson MD Requesting [...] sign off Procedure Code(s): --- Professional --- 06080, Esophagogastroduodenoscopy, flexible, transoral; with biopsy, single or multiple Diagnosis Code(s): --- Professional --- K20.90, Esophagitis, unspecified without bleeding K31.89, Other diseases of stomach and duodenum K26.9, Duodenal ulcer, unspecified as acute or chronic, without hemorrhage or perforation CPT copyright 2021 [employer]. All rights reserved. The codes documented in this report are preliminary and upon collar worker reviewmay be revised to meet current compliance requirements. MD Chava Hua MD 02/16/2025 10:00:36 AM This report has been signed electronically.Chava Erickson MD Number of Addenda: 0 Note Initiated On: 02/16/2025 7:57 AM [address] [address] Chava Erickson MD PROCEDURE ORDERABLE Final Result TEST * (ABNORMAL) Basic Metabolic Profile Magnesium (02/16/2025 7:06 AM CDT) Only the most recent of9 resultswithin the time period is included. Sodium 141 136 - 145 mmol/L 02/16/2025 7:56 AM [facility] Potassium 3.1(L) 3.4 - 5.1 mmol/L 02/16/2025 7:56 AM [facility] Chloride 109(H) 98 - 108 mmol/L 02/16/2025 7:56 AM [facility] Carbon Dioxide 30 20 - 31 mmol/L 02/16/2025 7:56 AM [facility] BUN (Urea Nitro) <5(L) 9 - 23 mg/dL 02/16/2025 7:56 AM [facility] Creatinine 0.53(L) 0.55 - 1.02 mg/dL 02/16/2025 7:56 AM [facility] Est GFR (CKD-EPI) >60.00 >60.00 mL/min/1. 73m2 02/16/2025 7:56 AM [facility] Comment:Calculation based on the Chronic Kidney Disease Epidemiology Collaboration (CKD-EPI) equation refit without adjustment for race. Glucose 90 74 - 106 mg/dL 02/16/2025 7:56 AM [facility] Calcium, Serum 7.4(L) 8.7 - 10.4 mg/dL 02/16/2025 7:56 AM [facility] Anion Gap 2.0 0.0 - 15.0 mmol/L 02/16/2025 7:56 AM [facility] Magnesium 1.5(L) 1.6 - 2.6 mg/dL 02/16/2025 7:56 AM [facility] Blood Venipuncture / Unknown 02/16/2025 7:06 AM CDT 02/16/2025 7:28 AM CDT us Yany Ingram MD CHEMISTRY ORDERABLE Final Result [facility] [address] [place] [address] * (ABNORMAL) CBC (HGB,HCT,WBC,RBC,Platelet) (02/16/2025 7:06 AM CDT) Only the most recent of9 resultswithin the time period is included. WBC 5.4 4.3 - 10.8 K/uL 02/16/2025 7:36 AM [facility] RBC 2.14(L) 4.20 - 5.40 M/uL 02/16/2025 7:36 AM [facility] Hemoglobin 7.6(L) 12.0 - 16.0 gm/dL 02/16/2025 7:36 AM [facility] Hematocrit 24.2(L) 36.0 - 48.0 % 02/16/2025 7:36 AM [facility] MCV 113(H) 80 - 100 fL 02/16/2025 7:36 AM [facility] MCH 36(H) 27 - 33 pg 02/16/2025 7:36 AM [facility] MCHC 31(L) 33 - 36 gm/dL 02/16/2025 7:36 AM [facility] RDW 14.7(H) 11.5 - 14.5 % 02/16/2025 7:36 AM [facility] Platelet Count 219 150 - 400 K/UL 02/16/2025 7:36 AM CDT [facility] MPV 9.9 6.5 - 12 fL 02/16/2025 7:36 AM CDT [facility] Blood Venipuncture / Unknown 02/16/2025 7:06 AM CDT 02/16/2025 7:29 AM CDT Yany Ingram MD HEMATOLOGY ORDERABLE Hailee merchant Result [facility] [address] [address] * XR ABDOMEN FLAT & UPRIGHT (02/15/2025 [...] lung bases. REPORT SIGNED BY DR. Diane Bruer Molly Epps PA-C XRAY ORDERABLE Final Res ult * Lipase (02/15/2025 7:41 AM CDT) Lipase 53 12 - 53 U/L 02/15/2025 3:37 PM CDT [facility] Blood Venipuncture / Unknown 02/15/2025 7:41 AM CDT 02/15/2025 8:10 AM CDT Molly Epps PA-C CHEMISTRY ORDERABLE Final Result Performing Organization Address [facility] de Phone Number [facility] [address] [place] [address] * (ABNORMAL) Liver Profile (02/15/2025 7:41 AM CDT) ALT 16 7 - 40 U/L 02/15/2025 9:53 AM T [facility] Alkaline Phosphatase 528(H) 46 - 116 U/L 02/15/2025 9:53 AM T [facility] AST (SGOT) 11(L) 13 - 40 U/L 02/15/2025 9:53 AM T [facility] Protein Total 4.8(L) 5.7 - 8.2 g/dL 02/15/2025 9:53 AM T [facility] Albumin 1.5(L) 3.4 - 5.0 g/dL 02/15/2025 9:53 AM T [facility] Bilirubin-Direct <0.10 <0.40 mg/dL 02/15/2025 9:53 AM T [facility] Bilirubin-Total 0.20(L) 0.30 - 1.20 mg/dL 02/15/2025 9:53 AM T [facility] Blood Venipuncture / Unknown 02/15/2025 7:41 AM CDT 02/15/2025 8:10 AM CDT Molly Epps PA-C CHEMISTRY ORDERABLE Final Result Performing Organization Address City/[facility] Co de Phone Number [facility] [address] [place] [address] * Vancomycin - Random (02/15/2025 7:41 AM CDT) Only the most recent of2 resultswithin the time period is included. Vancomycin Random 22.1 11.0 - 45.0 ug/mL 02/15/2025 9:29 AM CDT [facility] Blood Venipuncture / Unknown 02/15/2025 7:41 AM CDT 02/15/2025 8:10 AM CDT Keila Beckman Pharm D CHEMISTRY ORDERABLE F inal Result Performing Organization Address [facility] Co de Phone Number [facility] [place] [address] * Extra Tube-EDTA (Lab Use Only) (02/14/2025 8:35 PM CDT) Only the most recent of2 resultswithin the time period is included. Blood 02/14/2025 8:35 PM CDT 02/14/2025 8:44 PM CDT Moises Cm MD HEMATOLOGY ORDERABLE Final Result Performing Organization Address [facility] de Phone Number [facility] [place] [address] * Blood Aerobic (1 Bottle) Culture (02/14/2025 2:14 AM CDT) Only the most recent of2 resultswithin the time period is included. Blood Culture (<5 Years Old/Short Draw) No growth 5 days. 02/19/2025 2:20 AM CDT [facility] Blood VENOUS BLOOD SPECIMEN / Unknown 02/14/2025 2:14 AM CDT 02/14/2025 2:14 AM CDT us Michelle Pickering MD MICROBIOLOGY ORDERABLE Final Res ult Performing Organization Address [facility] Co de Phone Number [facility] [place] [address] * (ABNORMAL) Admit MRSA by PCR (For IP Use Only) (02/14/2025 1:13 AM CDT) Admit MRSA by PCR Methicillin Resistant Staph. Aureus (MRSA) detected by PCR.(A) No Methicillin Resistant Staph. Aureus (MRSA) detected by PCR. 02/14/2025 4:13 AM CDT [facility] Nasal NASAL STRUCTURE / Unknown 02/14/2025 1:13 AM CDT 02/14/2025 1:40 AM CDT Danielle Carrero DO MICROBIOLOGY ORDERABLE Final Result Performing Organization Address [facility] Co de Phone Number [facility] [place] [address] * Extra Tube PST (Lab Use Only) (02/14/2025 12:33 AM CDT) Blood 02/14/2025 12:3 3 AM CDT 02/14/2025 1:09 AM CDT Michelle Pickering MD CHEMISTRY ORDERABLE Final Result Performing Organization Address [facility] Co de Phone Number [facility] [place] [address] * XR CHEST AP PORT (02/13/2025 10:13 [...] 5 days. TONIO 02/16/2025 9:36 AM CDT [facility] Site-Microbiology STRUCTURE OF RIGHT INDEX FINGER / Unknown 2025 1:03 PM CDT Comment:Pre-op diagnosis: Gangrene, not elsewhere classified (HCC) [I96] Taylor Gutierrez MD MICROBIOLOGY ORDERABLE Final Result Performing Organization Address City/State/[facility] de Phone Number [facility] [address] [place], [place] [id number] * (ABNORMAL) Culture-Aerobic (2025 1:03 PM CDT) Only the most recent of3 resultswithin the time period is included. Aerobic Culture Few colonies of Methicillin resistant Staphylococcus aureus (MRSA)(A) TONIO 02/14/2025 6:56 AM CDT [facility] Aerobic Culture One colony of Escherichia coli(A) TONIO 02/14/2025 6:56 AM CDT [facility] Gram Stain Result No bacteria seen. 02/14/2025 6:56 AM CDT [facility] Gram Stain Result No WBC's seen / LPF 02/14/2025 6:56 AM CDT [facility] Site-Microbiology STRUCTURE OF RIGHT INDEX FINGER / [...] Taylor Gutierrez MD MICROBIOLOGY ORDERABLE Final Result [facility] [address] [place] [address] * (ABNORMAL) Procalcitonin (2025 7:14 AM CDT) Only the most recent of2 resultswithin the time period is included. Procalcitonin 4.22(H) <=0.05 ng/mL 2025 8:03 AM CDT [facility] Blood Capillary / Unknown 2025 7:14 AM CDT 2025 7:22 AM CDT Narrative [facility] - 2025 8:03 AM CDT PROCALCITONIN REFERENCE [...] likelihood of severe sepsis or septic shock. Carlene Rosen PA-C CHEMISTRY ORDERABLE Fi nal Result Performing Organization Address City/[facility]/ZIP Co de Phone Number [facility] [address] [facility] [place] [address] * HCG Urine (02/08/2025 8:42 AM CDT) hCG Urine Negative Negative 02/08/2025 8:53 AM CDT [facility] Urine URINE SPECIMEN / Unknown 02/08/2025 8:42 AM CDT 02/08/2025 8:46 AM CDT Yany Ingram MD URINE ORDERABLE Final Res ult [facility] [address] [place] [address] * Electrocardiogram (02/08/2025 5:57 AM CDT) EKG [facility] [place] Comment: [facility] Test Date: 2025-02-08 Pat Name: HANNAH LOO Department: A7 Room: A783 Gender: F 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 Est GFR (CKD-EPI) >60.00 >60.00 mL/min/1. 73m2 02/08/2025 7:25 AM CDT [facility] Comment:Calculation based on the Chronic Kidney Disease Epidemiology Collaboration (CKD-EPI) equation refit without adjustment for race. Blood Venipuncture / Unknown 02/08/2025 5:24 AM CDT 02/08/2025 5:58 AM CDT us Yany Ingram MD CHEMISTRY ORDERABLE Final Result Performing Organization Address [facility] Co de Phone Number [facility] [address] [facility] [facility] [place] [address] * ABORh Confirm (Lab Use Only) (02/08/2025 5:04 AM CDT) Group and Rh A Positive 02/08/2025 6:51 AM CDT [facility] Blood 02/08/2025 5:04 AM CDT 02/08/2025 5:45 AM CDT Yany Ingram MD BLOOD BANK ORDERABLE Hailee l Result Performing Organization Address [facility] de Phone Number [facility] [address] [place] [address] [facility] [address] [place] [phone] * Lactic Acid (02/08/2025 1:48 AM CDT) Pathologist [facility] [place] Lactic Acid 0.8 0.7 - 2.1 mmol/L 02/08/2025 1:49 AM CDT [facility] Blood 02/08/2025 1:48 AM CDT 02/08/2025 1:48 AM CDT Yany Ingram MD CHEMISTRY ORDERABLE Final Result Performing Organization Address City/[facility] Co de Phone Number [facility] [address] [place] [address] * Type and Screen (02/08/2025 1:45 AM CDT) Group and Rh A Positive 02/08/2025 2:49 AM CDT [facility] Antibody Screen Negative 02/08/2025 2:49 AM CDT [facility] Blood 02/08/2025 1:45 AM CDT 02/08/2025 1:52 AM CDT us Yany Ingram MD BLOOD BANK ORDERABLE Edit ed Result - Final Performing Organization Address [facility] de Phone Number [facility] [address] [place] [address] [facility] [address] [place] [address] * (ABNORMAL) C-Reactive Protein (02/08/2025 1:45 AM CDT) C Reactive Protein 8.2(H) <=0.5 mg/dL 02/08/2025 2:25 AM CDT [facility] Blood 02/08/2025 1:45 AM CDT 02/08/2025 1:52 AM CDT Yany Ingram MD IMMUNOLOGY ORDERABLE Hailee l Result Performing Organization Address [facility] de Phone Number [facility] [address] [place] [address] * (ABNORMAL) Basic Metabolic Profile (02/08/2025 1:45 AM CDT) Pathologist [facility] [place] Sodium 139 136 - 145 mmol/L 02/08/2025 2:25 AM T [facility] Potassium 3.5 3.4 - 5.1 mmol/L 02/08/2025 2:25 AM T [facility] Chloride 107 98 - 108 mmol/L 02/08/2025 2:25 AM [facility] Carbon Dioxide 28 20 - 31 mmol/L 02/08/2025 2:25 AM T [facility] BUN (Urea Nitro) 8(L) 9 - 23 mg/dL 02/08/2025 2:25 AM T [facility] Creatinine 0.28(L) 0.55 - 1.02 mg/dL 02/08/2025 2:25 AM T [facility] Est GFR (CKD-EPI) >60.00 >60.00 mL/min/1. 73m2 02/08/2025 2:25 AM T [facility] Comment:Calculation based on the Chronic Kidney Disease Epidemiology Collaboration (CKD-EPI) equation refit without adjustment for race. Glucose 77 74 - 106 mg/dL 02/08/2025 2:25 AM CDT [facility] Calcium, Serum 8.0(L) 8.7 - 10.4 mg/dL 02/08/2025 2:25 AM T [facility] Anion Gap 4.0 0.0 - 15.0 mmol/L 02/08/2025 2:25 AM T [facility] Blood 02/08/2025 1:45 AM CDT 02/08/2025 1:52 AM CDT us Yany Ingram MD CHEMISTRY ORDERABLE Final Result [facility] [address] [place], [place] [id number] * (ABNORMAL) CBC / Diff (02/08/2025 1:45 AM CDT) WBC 15.5(H) 4.3 - 10.8 K/uL 02/08/2025 2:07 AM [facility] RBC 2.88(L) 4.20 - 5.40 M/uL 02/08/2025 2:07 AM [facility] Hemoglobin 10.1(L) 12.0 - 16.0 gm/dL 02/08/2025 2:07 AM [facility] Hematocrit 32.6(L) 36.0 - 48.0 % 02/08/2025 2:07 AM [facility] MCV 113(H) 80 - 100 fL 02/08/2025 2:07 AM [facility] MCH 35(H) 27 - 33 pg 02/08/2025 2:07 AM [facility] MCHC 31(L) 33 - 36 gm/dL 02/08/2025 2:07 AM [facility] RDW 15.3(H) 11.5 - 14.5 % 02/08/2025 2:07 AM [facility] Platelet Count 370 150 - 400 K/UL 02/08/2025 2:07 AM [facility] MPV 8.9 6.5 - 12 fL 02/08/2025 2:07 AM [facility] PMN % 86.5 % 02/08/2025 2:07 AM [facility] IG % 0.8 <=1.0 % 02/08/2025 2:07 AM [facility] Lymphocyte % 7.8 % 02/08/2025 2:07 AM [facility] Monocyte % 4.1 % 02/08/2025 2:07 AM [facility] Eosinophil % 0.5 % 02/08/2025 2:07 AM [facility] Basophil % 0.3 % 02/08/2025 2:07 AM [facility] PMN Absolute 13.42(H) 1.80 - 7.80 K/uL 02/08/2025 2:07 AM [facility] Lymphocyte Absolute 1.21 1.00 - 4.00 K/uL 02/08/2025 2:07 AM [facility] Monocyte Absolute 0.64 0.00 - 1.00 K/uL 02/08/2025 2:07 AM [facility] Eosinophil Absolute 0.08 0.00 - 0.45 K/uL 02/08/2025 2:07 AM [facility] Basophil Absolute 0.04 0.00 - 0.20 K/uL 02/08/2025 2:07 AM [facility] Nucl RBC % 0.0 0.0 - 0.0 /100 WBC 02/08/2025 2:07 AM [facility] Nucl RBC Absolute 0.00 0.00 - 0.00 K/uL 02/08/2025 2:07 AM [facility] Blood 02/08/2025 1:45 AM CDT 02/08/2025 1:52 AM T us Yany Ingram MD HEMATOLOGY ORDERСЕРГЕЙ merchant Result [facility] [address] [address] * XR OUTSIDE UPPER EXTREMITY STUDY (02/07/2025 [...] Tobacco use disorder Anemia Anemia, unspecified Gangrene (HCC) Gangrene documented in this encounter Admitting Diagnoses Diagnosis [...] on 02/16/25 at 1400, Until Discontinued, Pre-Op Given 02/16/2025 3:06 PM CDT 10 mL saline FLUSH syringe 10 mL 10 mL, Intravenous, NEEDED, Starting on 02/16/25 at 0947, Until 02/16/25 at 2223, Pre-Op, Line Care acetaminophen (TYLENOL) tablet 1,000 mg 1,000 mg, oral, FOUR TIMES A DAY, First dose (after last modification) on Mon02/09/25 at 1300, Until Discontinued Given 02/16/2025 11:24 AM CDT 1,000 m g Given 02/15/2025 9:36 PM CDT 1,000 mg Given 02/15/2025 5:35 PM CDT 1,000 mg BUPivacaine 0.25% (MARCAINE) injection INTRA-PROCEDURE NEEDED, Starting on Mon02/09/25 at 1135, Until Mon02/09/25 at 1149, Intra-Op Given 02/09/2025 11:35 AM CDT 4 mL Procedural D50W IV syringe 25-50 mL 25-50 mL, Intravenous, NEEDED, Starting on Mon02/14/25 at 0909, Until Mon02/16/25 at 2223, hypoglycemia Given 02/14/2025 8:41 PM CDT 25 mL Given 02/14/2025 9:33 AM CDT 25 mL D50W IV syringe 25-50 mL 25-50 mL, Intravenous, NEEDED, Starting on Mon02/16/25 at 0947, Until Mon02/16/25 at 2223, Pre-Op, hypoglycemia enoxaparin (LOVENOX) injection 40 mg 40 mg, [...] Given 02/16/2025 11:20 AM CDT 40 mg Mannieo mia gabapentin (NEURONTIN) capsule 300 mg 300 mg, [...] doses, Starting on Mon02/14/25 at 0909, Until 02/16/25 at 2223, for hypoglycemia guaiFENesin (ROBITUSSIN) syrup 100 mg 100 mg, oral, EVERY 4 HOURS NEEDED, Starting on Holly 02/13/25 at 2114, Until 02/16/25 at 2223, cough Given 02/16/2025 4:28 AM CDT 100 mg Given 02/15/2025 7:58 PM CDT 100 mg Given 02/14/2025 4:17 AM CDT 100 mg hydrogen peroxide 3% topical solution INTRA-PROCEDURE NEEDED, Starting on Mon02/09/25 at 1136, Until Mon02/09/25 at 1149, Intra-Op, per procedure Given 02/09/2025 11:36 AM CDT 20 mL Proc edural HYDROmorphone (Dilaudid) syringe 0.5-1 mg 0.5-1 mg, Intravenous, EVERY 4 HOURS NEEDED, Starting on Mon02/13/25 at 0935, Until Mon02/16/25 at 2223, Pain, when NOT taking PO, Pain, if oral opioid not effective or tolerated Given 02/16/2025 3:26 AM CDT 0.5 mg Given 02/15/2025 4:24 PM CDT 0.5 mg Given 02/15/2025 2:17 PM CDT 0.5 mg HYDROmorphone (DILAUDID) tablet 2-4 mg 2-4 mg, oral, EVERY 4 HOURS NEEDED, Starting on Mon02/13/25 at 0937, Until Mon02/16/25 at 2223, pain Given 02/16/2025 3:55 PM CDT 4 mg Given 02/16/2025 11:32 AM CDT 4 mg Given 02/16/2025 12:42 AM CDT 4 mg hydrOXYzine pamoate (Vistaril) capsule 25-50 mg 25-50 mg, oral, EVERY 6 HOURS NEEDED, Starting on Mon02/09/25 at 1257, Until Mon02/16/25 at 2223, Adjuvant to pain management Given 02/16/2025 1:25 PM CDT 50 mg Given 02/14/2025 4:18 PM CDT 50 mg Given 02/13/2025 4:23 PM CDT 25 mg lidocaine (LMX-4) topical cream 1 Application topical, [...] 02/08/25 at 0155, Until 02/16/25 at 2223 methocarbamoL (ROBAXIN) tablet 500-1,000 mg 500-1,000 mg, [...] For C. difficile, anaerobic bacteremia, parasitic, or ELECTRIC POWER MACHINE OPERATOR infections utilize q8h frequency. For all other infections, utilize q12h frequency., On hold since Holly 02/13/2025 at 2327 until manually unheldIndications:ORTHO, BONE AND PORT LIONS JOINT INFECTIONS Given 02/13/2025 9:14 PM CDT 500 mg Given 02/13/2025 2:04 PM CDT 500 mg nicotine (NICOTROL) 7 mg/24 hr patch 7 mg 7 mg (1 patch), Transdermal, DAILY, First dose on 02/08/25 at 1315, Until Discontinued Patch Applied [...] nausea & vomiting, 1st choice Given 02/15/2025 7 :30 PM CDT 4 mg Given 02/15/2025 1:09 [...] Given 02/15/2025 8:01 AM CDT 4 mg pantoprazole (Protonix) delayed release tablet 40 [...] 9:39 PM CDT 3.375 g 25 mL/hr POTASSIUM REPLACEMENT INTRAVENOUS - NOT FOR DOCUMENTATION PURPOSES Intravenous, PER PROTOCOL, Starting on 02/08/25 at 0155, Until 02/16/25 at 2223 POTASSIUM REPLACEMENT ORAL - NOT FOR DOCUMENTATION PURPOSES oral, PER PROTOCOL, Starting on [facility] 02/08/25 at 0155, Until 02/16/25 at 2223, [...] mL 0.1-0.3 mL, Intradermal, NEEDED, Starting on [facility] 02/08/25 at 0049, Until [place] 02/16/25 at 2223, IV start or restart sulfamethoxazole 800 mg-trimethoprim 160 mg (BACTRIM DS;SEPTRA DS) tablet 160 mg 160 mg (1 tablet), oral, TWICE A DAY, First dose on [facility] 02/13/25 at 1800, Until Discontinued, Dosing of sulfamethoxazole/trimethoprim (Bactrim or Septra products) is based on the trimethoprim component. Equivalency of oral suspension to tablet is: 10 mL = 1 SS tab, 20 mL = 1 DS tab. , On hold since [facility] 02/13/2025 at 2327 until manually unheldIndications:ORTHO, BONE AND PORT LIONS JOINT INFECTIONS Given 02/13/2025 6:09 PM CDT 160 mg vancomycin (VANCOCIN) 1,000 mg in sodium chloride 0.9 % 250 mL IV piggyback 1,000 mg (rounded from 1,072 mg = 20 mg/kg 53.6 kg), at 250 mL/hr, Intravenous, EVERY 12 HOURS (NS), First dose (after last modification) on [facility] 02/15/25 at 1400, Until DiscontinuedIndications:PNEUMONIA , HOSPITAL ACQUIRED,PNEUMONIA, 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 New Bag 02/16/2025 2:09 AM CDT 1,000 mg 250 mL/hr Auto Rate Verify 02/15/2025 2:25 PM CDT 250 mL/ hr New Bag 02/15/2025 1:49 PM CDT 1,000 mg 250 mL/hr Vancomycin Pharmacy Consult Pneumonia diagnosis code: Suspected HAP/VAP (gram negative or MRSA pneumonia)Indications:PNEUMONIA, HOSPITAL ACQUIRED,PNEUMONIA, 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 varenicline tartrate (Chantix;Apo-Varenicline) tablet 0.5 mg 0.5 mg, oral, DAILY, 3 doses, First dose on 02/16/25 at 1245, Last dose on Mon02/18/25 at [...] (Given - Provider: Mila De Leon RN)1053 ([facility] Unhold - Provider: Interface, Incoming Adt) gabapentin (NEURONTIN) capsule 300 mg 300 mg, oral, THREE TIMES A DAY, First dose (after last modification) on [place] 02/13/25 at 0815, Until Discontinued 0644 (Given - Provider: Axel Torres, SINGH)0800 (Canceled Entry - Provider: Axel Torres RN)1406 (Given - Provider: Maria Guadalupe Cagle RN)2220 (Given - Provider: Rubia Velásquez RN) 0800 (Not Given - Provider: Mila De Leon, RN - Reason: Nauseated)1400 (Not Given - Provider: Mila Guillermo Subject, RN - Reason: Nauseated)2136 (Given - Provider: Rubia Velásquez RN) 0800 (Not Given - Provider: Mila De Leon, RN - Reason: NPO)0824 (NOV Hold - Provider: Interface, Incoming Adt - Reason: Procedure)1053 ([facility] Unhold - Provider: Interface, Incoming Adt)1325 (Given - Provider: Mila De Leon, RN) MAGNESIUM REPLACEMENT INTRAVENOUS - NOT FOR DOCUMENTATION PURPOSES Intravenous, PER PROTOCOL, Starting on 02/08/25 at 0155, Until 02/16/25 at 2223 0824 ([facility] Hold - Provider: Interface, Incoming Adt - Reason: Procedure)1053 ([facility] Unhold - Provider: Interface, Incoming Adt) magnesium [...] NOT be used for magnesium replacement. 0824 ([facility] Hold - Provider: Interface, Incoming Adt - Reason: Procedure)1053 ([facility] Unhold - Provider: Interface, Incoming Adt)1117 (New Bag - Provider: Mila De Leon, RN)1117 (Auto Rate Verify - Provider: Mila De Leon, RN)1155 (Auto Rate Verify - Provider: Mila Guillermo Subject, RN)1249 (Stopped - Provider: Mila De Leon, [...] For C. difficile, anaerobic bacteremia, parasitic, or ELECTRIC POWER MACHINE OPERATOR infections utilize q8h frequency. For all other infections, utilize q12h frequency., On hold since Mon02/13/2025 at 2327 until manually unheld 0600 (Automatically Held - Provider: Danielle Carrero DO)1400 (Automatically Held - Provider: Danielle Carrero DO)2200 (Automatically Held - Provider: Danielle Carrero DO) 0600 (Not Given - Provider: Mila Guillermo Subject, RN - Reason: deferred)1400 (Not Given - Provider: Mila De Leon, RN - Reason: deferred)2200 (Automatically Held - Provider: Danielle Carrero DO) 0600 (Not Given - Provider: Mila De Leon, RN - Reason: deferred)1400 (Not Given - Provider: Mila Guillermo Subject, RN - Reason: deferred)2223 (Unheld by provider - Provider: Ondischarnarcisa Autodiscontinue) nicotine (NICOTROL) 7 mg/24 hr patch [...] (Given - Provider: Rubia Velásquez RN) 0824 (NOV Hold - Provider: Interface, Incoming Adt - Reason: Procedure)1053 ([facility] Unhold - Provider: Interface, Incoming Adt)1125 (Given - Provider: Mila De Leon, RN) piperacillin-tazobactam (ZOSYN) 3.375 g in sodium chloride 0.9 % 100 mL IV piggyback 3.375 g, Intravenous, EVERY 8 HOURS (NS), First dose on Mon02/14/25 at 0600, Until Discontinued 0700 (New Bag - Provider: Axel C Jouppi, RN)1403 (New Bag - Provider: Maria Guadalupe Cagle RN)2127 (New Bag - Provider: Rubia Velásquez, RN) 0706 (New Bag - Provider: Michael Bishop RN)0803 (Paused - Provider: Mila De Leon, RN)0810 (Restarted - Provider: Mila De Leon, RN)1047 (Stopped - Provider: Mila De Leon, RN)1501 (New Bag - Provider: Mila De Leon, RN)1756 (Auto Rate Verify - Provider: Rubia Velásquez, RN)2139 (New Bag - Provider: Rubia Velásquez, RN) 0524 (New Bag - Provider: Patriica Herring RN)0846 (Stopped - Provider: Mila De Leon, RN)1330 (New Bag - Provider: Mila De [...] Leon, RN)1400 (New Bag - Provider: Mila De Leon, RN)1425 (Auto Rate Verify - Provider: Mila De Leon, RN)1455 (Restarted - Provider: Rubia Velásquez RN)1556 (Stopped - Provider: Rubia Velásquez, RN)1621 (New Bag - Provider: Rubia Velásquez RN) potassium chloride 10 mEq IV piggyback in 100 mL (CANCELED) 10 mEq, Intravenous, EVERY 1 HOUR, 4 doses, First dose on 02/16/25 at 0800, Last dose on 02/16/25 at 1100, Administer over 60 Minutes 0824 ([facility] Hold - Provider: Interface, Incoming Adt - Reason: Procedure)0900 (Canceled Entry - Provider: Mila De Leon, RN)1000 (Canceled Entry - Provider: Mila De Leon, RN)1052 (New Bag - Provider: Mila De Leon, RN)1053 ([facility] Unhold - Provider: Interface, Incoming Adt)1059 (Canceled [...] at 0155, Until 02/16/25 at 2223 0824 ([facility] Hold - Provider: Interface, Incoming Adt - Reason: Procedure)1053 ([facility] Unhold - Provider: Interface, Incoming Adt) POTASSIUM REPLACEMENT ORAL - NOT FOR DOCUMENTATION PURPOSES oral, PER PROTOCOL, Starting on 02/08/25 at 0155, Until 02/16/25 at 2223, May request packets if patient requires liquid potassium. 0824 ([facility] Hold - Provider: Interface, Incoming Adt - Reason: Procedure)1053 ([facility] Unhold - Provider: Interface, Incoming Adt) sulfamethoxazole [...] 1 DS tab. , On hold since [facility] 02/13/2025 at 2327 until manually unheld 0800 (Automatically Held - Provider: Danielle Carrero DO)1999 (Automatically Held - Provider: Danielle Carrero DO) 0800 (Not Given - Provider: Mila De Leon, RN - Reason: deferred)1999 (Automatically Held - Provider: Danielle Carrero DO) 0800 (Not Given - Provider: Mila De Leon, RN - Reason: MD deferred)2223 (Unheld by provider - Provider: Onwisamchaashish Autodiscontinue) vancomycin (VANCOCIN) 1,000 mg in sodium chloride 0.9 % 250 mL IV piggyback (CANCELED) 1,000 mg (rounded from 1,072 mg = 20 mg/kg 53.6 kg), at 250 mL/hr, Intravenous, EVERY 18 HOURS (NS), First dose on [facility] 02/15/25 at 0000, Until Discontinued 0121 (New Bag - Provider: Michael Bishop RN) vancomycin (VANCOCIN) 1,000 mg in sodium chloride 0.9 % 250 mL IV piggyback 1,000 mg (rounded from 1,072 mg = 20 mg/kg 53.6 kg), at 250 mL/hr, Intravenous, EVERY 12 HOURS (NS), First dose (after last modification) on [facility] 02/15/25 at 1400, Until Discontinued 1349 (New Bag - Provider: Mila De Leon, RN)1425 (Auto Rate Verify - Provider: Mila De Leon, RN)1453 (Stopped - Provider: Rubia Velásquez RN) 0209 (New Bag - Provider: Patricia Herring RN)1400 (Canceled Entry - Provider: Mila De Leon, RN - Comment: Patient discharging- MD deferred, meds switched to PO) vancomycin (VANCOCIN) [...] - Reason: Procedure)0845 (Paused - Provider: Mila De Leon, RN)1050 (Restarted - Provider: Mila De Leon, [...] - Provider: Mila De Leon, RN) 0824 ([facility] Hold - Provider: Interface, Incoming Adt - Reason: Procedure)1053 ([facility] Unhold - Provider: Interface, Incoming Adt) saline FLUSH syringe 10 mL 10 mL, Intravenous, NEEDED, Starting on 02/16/25 at 0947, Until 02/16/25 at 2223, Pre-Op, Line Care D50W IV syringe 25-50 mL 25-50 mL, Intravenous, NEEDED, Starting on 02/14/25 at 0909, Until 02/16/25 at 2223, hypoglycemia 0933 (Given - Provider: Maria Guadalupe Cagle, SINGH)2041 (Given - Provider: Rubia Velásquez RN - Comment: unable to eat due to feeling full and nausous) 0824 ([facility] Hold - Provider: Interface, Incoming Adt - Reason: Procedure)1053 ([facility] Unhold - Provider: Interface, Incoming Adt) D50W IV syringe 25-50 mL 25-50 mL, Intravenous, NEEDED, Starting on 02/16/25 at 0947, Until 02/16/25 at 2223, Pre-Op, hypoglycemia glucagon, human recombinant (Glucagen) injection (conc: 1 mg/mL) 1 mg 1 mg, IntraMUSCULAR, EVERY 15 MINUTES NEEDED, 2 doses, Starting on 02/14/25 at 0909, Until 02/16/25 at 2223, for hypoglycemia 0824 ([facility] Hold - Provider: Interface, Incoming Adt - Reason: Procedure)1053 ([facility] Unhold - Provider: Interface, Incoming Adt) guaiFENesin (ROBITUSSIN) syrup 100 mg 100 mg, oral, EVERY 4 HOURS NEEDED, Starting on Holly 02/13/25 at 2114, Until 02/16/25 at 2223, cough 0417 (Given - Provider: Axel Torres RN) 1958 (Given - Provider: Rubia Velásquez, SINGH) 0428 (Given - Provider: Patricia Herring, SINGH)0824 ([facility] Hold - Provider: Interface, Incoming Adt - Reason: Procedure)1053 ([facility] Unhold - Provider: Interface, Incoming Adt) HYDROmorphone [...] 0326 (Given - Provider: Patricia Herring, SINGH)0824 ([facility] Hold - Provider: Interface, Incoming Adt - Reason: Procedure)1053 ([facility] Unhold - Provider: Interface, Incoming Adt) HYDROmorphone (DILAUDID) tablet 2-4 mg 2-4 mg, oral, EVERY 4 HOURS NEEDED, Starting on Holly 02/13/25 at 0937, Until 02/16/25 at 2223, pain 0110 (Given - Provider: Axel Torres, SINGH)0521 (Given - Provider: Axel Torres RN)1203 (Given - Provider: Maria Guadalupe Cagle RN)1618 (Given - Provider: Shashank Chen, SINGH)2038 (Given - Provider: Rubia Velásquez, RN) 0046 (Given - Provider: Michael Bishop, SINGH)1930 (Given - Provider: Rubia Velásquez, SINGH) 004 (Given - Provider: Jacquelyn Yates RN)0824 ([facility] Hold - Provider: Interface, Incoming Adt - Reason: Procedure)1053 ([facility] Unhold - Provider: Interface, Incoming Adt)1132 (Given - Provider: Mila De Leon RN)1555 (Given - Provider: Rubia Velásquez RN) hydrOXYzine pamoate (Vistaril) capsule 25-50 mg 25-50 mg, oral, EVERY 6 HOURS NEEDED, Starting on 02/09/25 at 1257, Until Sun 5 at 2223, Adjuvant to pain management 1618 (Given - Provider: Shashank Chen RN) 0824 ([facility] Hold - Provider: Interface, Incoming Adt - Reason: Procedure)1053 ([facility] Unhold - Provider: Interface, Incoming Adt)1325 (Given - Provider: Mila De Leon RN) lidocaine (LMX-4) topical cream 1 Application topical, NEEDED, Starting on 02/08/25 at 0049, Until Sun 5 at 2223, IV start or restart if patient prefers a needleless local anesthetic. 0824 ([facility] Hold - Provider: Interface, Incoming Adt - Reason: Procedure)1053 ([facility] Unhold - Provider: Interface, Incoming Adt) lidocaine 1% injection (conc: 10 mg/mL) 0.1-0.3 mL 0.1-0.3 mL, Intradermal, NEEDED, Starting on 02/08/25 at 0049, Until Sun 5/25 at 2223, Local Anesthesia, IV start or restart 0824 ([facility] Hold - Provider: Interface, Incoming Adt - Reason: Procedure)1053 ([facility] Unhold - Provider: Interface, Incoming Adt) metoclopramide HCl (Reglan) injection 10 mg 10 mg, Intravenous, EVERY 6 HOURS NEEDED, Starting on 02/15/25 at 1046, Until 02/16/25 at 2223, Nausea/Vomiting, 3rd choice 1144 (Given - Provider: Mila De Leon, RN) 0824 ([facility] Hold - Provider: Interface, Incoming Adt - Reason: Procedure)1053 ([facility] Unhold - Provider: Interface, Incoming Adt) ondansetron (Zofran) disintegrating tablet 4-8 mg(Linked Group 2) 4-8 mg, oral, EVERY 8 HOURS NEEDED, Starting on 02/08/25 at 0050, Until Sun 5 at 2223, nausea & vomiting, 1st choice 0002 (See Alternative - Provider: Axel Torres RN)0858 (Given - Provider: Maria Guadalupe Cagle RN)1203 (See Alternative - Provider: Maria Guadalupe Cagle RN)1851 (Given - Provider: Shashank Chen, SINGH) 0109 (Given - Provider: Michael Bishop RN)0801 (See Alternative - Provider: Mila De Leon RN)1626 (See Alternative - Provider: Rubia Velásquez RN)1930 (Given - Provider: Rubia Velásquez RN) 0326 (See Alternative - Provider: Patricia Herring RN)0824 ([facility] Hold - Provider: Interface, Incoming Adt - Reason: Procedure)1053 ([facility] Unhold - Provider: Interface, Incoming Adt) ondansetron (Zofran) injection 4-8 mg(Linked Group 2) 4-8 mg, Intravenous, EVERY 8 HOURS NEEDED, Starting on 02/08/25 at 0050, Until Sun 5 at 2223, nausea & vomiting, 1st choice [...] Velásquez RN) 0326 (Given - Provider: Patricia Herring, SINGH)0824 ([facility] Hold - Provider: Interface, Incoming Adt - Reason: Procedure)1053 ([facility] Unhold - Provider: Interface, Incoming Adt) prochlorperazine (COMPAZINE) injection 5-10 mg 5-10 mg, Intravenous, EVERY 6 HOURS NEEDED, Starting on 02/10/25 at 1023, Until 02/16/25 at 2223, Nausea/Vomiting, 2nd choice, nausea 1955 (Given - Provider: Rubia Velásquez RN) 0920 (Given - Provider: Mila De Leon RN) 0439 (Given - Provider: Patricia Herring, SINGH)0824 ([facility] Hold - Provider: Interface, Incoming Adt - Reason: Procedure)1053 ([facility] Unhold - Provider: Interface, Incoming Adt) saline with benzyl alcohol injection 0.1-0.3 mL 0.1-0.3 mL, Intradermal, NEEDED, Starting on 02/08/25 at 0049, Until Mon02/16/25 at 2223, IV start or restart 0824 ([facility] Hold - Provider: Interface, Incoming Adt - Reason: Procedure)1053 ([facility] Unhold - Provider: Interface, Incoming Adt) Vancomycin Pharmacy Consult Pneumonia diagnosis code: Suspected HAP/VAP (gram negative or MRSA pneumonia) 0824 ([facility] Hold - Provider: Interface, Incoming Adt - Reason: Procedure)1053 ([facility] Unhold - Provider: Interface, Incoming Adt) Linked Groups Order Group 1: varenicline tartrate (Chantix;Apo-Varenicline) tablet 0.5 mgJump to med 0.5 mg, oral, DAILY, 3 doses, First dose on 02/16/25 at 1245, Last dose on Mon02/18/25 at 0800 Followed by varenicline tartrate (Chantix;Apo-Varenicline) tablet 0.5 mgJump to med 0.5 mg, oral, TWICE A DAY, 8 doses, First dose on Mon02/19/25 at 0800, Last dose on 02/22/25 at 2000 Followed by varenicline tartrate (Chantix;Apo-Varenicline) [...]
--- OUTSIDE RECORDS SUMMARY | 2025-02-11 12:05 | XMS_ITS | Encounter Summary ---
Author Organization [facility] Address [address] [place] [address] Care Team Providers Care Artificial Limb Maker Name Role Phone Unavailable Primary Care Provider Unavailabl e Reason for Visit * Inpatient Admission Specialty Diagnoses / Procedures Referred By Aristides t Referred To Contact Diagnoses Osteomyelitis Referral ID Status Reason Start Date Expiration Date Visits Re quested Visits Authorized [id number] 1 1 Encounter Details Date Type Department Care Team (Late st Contact Info) Description 2025 12:05 PM CDT - 2025 2:20 PM CDT Surgery [facility] Operating Room [address] [place] [address] [place] [address] [place] [id number] [facility] [address] [place] [address] IRRIGATION AND DEBRIDEMENT OF RIGHT HAND, Surgery Details Date/Time Status Location OR Service Patient Class Case Class Case Type Trauma Case? 2025 12:05 PM Posted [facility] ORS 06 Plastic Inpatient Panel 1 Procedure LRB Anes Op Region Wound Class Comments IRRIGATION AND DEBRIDEMENT O F RIGHT HAND, N/A General Hand Contaminated (III) Surgeon Surgeon Role Service Panel Taylor Gutierrez MD Primary Plastic 1 documented in this encounter Social History Tobacco Use Types Packs/Day Years Used Date Smoking Tobacco: Every Day Cigarettes Cigars Tobacco Cessation:Ready to Q uit: Yes; Counseling Given: Not Answered [facility] Utilities Answer Date Recorded In the [...] any time in the past 12 m [facility], were you homeless or living in a residential (including now)? No 02/08/2025 Comments No Sex and Gender Information Value Date Recorded Sex Assigned at Not on file Legal Sex Female 8:23 PM CDT Gender Identity Not on file Sexual Orientation Not on file documented as of this encounter Last Filed Vital Signs Vital Sign Reading Time Taken Comments Blood Pressure 123/82 2025 2:15 PM CDT Pulse 92 2025 2:20 PM CDT Temperature 36.4 C (97.6 F) 2025 1:30 PM CDT Respiratory Rate 10 2025 2:20 PM CDT Oxygen Saturation 94% 2025 2:20 PM CDT Inhaled Oxygen Concentration - - [...] middle finger, L middle finger Transferred from [place]. On arrival vital signs with borderline tachycardia [...] diet until follow up. She ate lunch 02/16/ w/o nausea or vomiting. She requested discharge [...] discharge. ?CAD EKG w poss prev septal CO of indeterminate age. -- outpt stress test [...] hours for22 days Indications: ORTHO, BONE AND [place] JOINT INFECTIONS. Qty: 66 tablet, Refills: 0 nicotine (NICOTROL) 7 mg/24 hr TD patch Apply 1 patch (7 mg) to skin once daily. Qty: 30 patch, Refills: 0 sulfamethoxazole 800 mg-trimethoprim 160 mg (BACTRIM DS;SEPTRA DS) 800-160 mg oral tablet Take 1 tablet (160 mg) by mouth twice a day for 22 days Indications: ORTHO, BONE AND [place] JOINT INFECTIONS. Qty: 44 tablet, Refills: 0 [...] follow-up Taylor Gutierrez MD Specialty: Plastic Surgery [address] [address] Specify time frame for follow up?: 2 Weeks Call to make a follow-up appointment with Dr. Gutierrez (hand surgeon) for suture removal in [address] Gutierrez [phone] [facility] Specialty: Gastroenterology, Hepatology [address] [place] [address] DR [place], [facility] 200 [facility] [phone] Specify time frame for follow up?: 6 Weeks Instructions to follow-up provider: follow up in 8 weeks for repeat EGD Anthony, Radha Osmel, MD Specialty: Family Medicine [address] [place] [id number] Specify time frame for follow up?: 1 Week Instructions to follow-up provider: follow up hospitalization, consider podiatry consult Discharge Procedure Orders BUN/Creatinine ([facility]) Standing Status: Future Standing Exp. Date: 02/13/26 Potassium, Serum Standing Status: Future Standing Exp. Date: 03/15/25 Discharge Instructions We would like a lab checked the week of February 24, these can be done with your primary clinic, or [facility] lab (creatinine and potassium), results should be faxed to [facility] Infectious Disease at [phone]. Dressing Change Twice daily dressing changes to right hand: Cover wound with non-stick (vaseline) gauze, wrap with roll gauze and NARCISA bandage. Ok to wash hand with soap and water. Follow Up with External Provider Referral Priority: Routine Referred to Provider: TAYLOR GUTIERREZ Number of Visits Requested: 1 Follow Up with External Provider Referral Priority: Routine Referral Location: [facility] Requested Specialty: Gastroenterology Number of Visits Requested: [...] completing the discharge summary. Molly Epps PA-C [facility] Available on [employer] or [employer] [phone] Cosigned by Michelle Pickering MD at 02/17/2025 11:15 AM CDT documented in this encounter Discharge Instructions * Attachments The following attachments cannot be sent through Care Everywhere. * Diet for Stomach Ulcers and Gastritis (AfterCare(R) Instructions(ER/ED)) (Swiss) * Soft Diet (Discharge Care) (Swiss) documented in this encounter Medications at Time [...] as needed for pain. 32 tablet 02/16/2025 documented as of this encounter Progress Notes * Rubia Velásquez, RN - 02/16/2025 4:04 PM CDT Hannah Loo 1980 [id number] P: Discharge A: Discharged via wheelchair to home at 1600 escorted by professional nursing assistant I: Discharge information and arrangements included: review [...] Weight: 53.6 kg (118 lb 2.7 oz) [place] body weight: 47.8 kg (105 lb 6.1 [...] with questions. Keila Beckman PharmD, BCPS Phone: [phone] * Molly Epps PA-C - 02/16/2025 8:58 [...] middle finger, L middle finger Transferred from [place]. On arrival vital signs with borderline tachycardia [...] protocol ?CAD EKG w poss prev septal CO of indeterminate age. -- outpt stress test [...] Q8H, Yany Ingram MD, 10mL at 02/16/25 05 [Transfer Hold] saline FLUSH syringe 10 mL, 10 mL, Intravenous, PRN, Yany Ingram MD, 10mL at 02/15/25 09 [Transfer Hold] acetaminophen (TYLENOL) tablet 1,000 mg, 1,000 mg, oral, QID, Carlene Rosen PA-C, 1,000 mg at 02/15/252135 [Transfer Hold] D50W IV syringe 25-50 mL, 25-50 mL, Intravenous, PRN, Molly Epps PA-C, 25 mL at 02/14/252040 [Transfer Hold] dextrose 5% in water-lactated ringers IV infusion, , Intravenous, CONTINUOUS, Danielle Carrero, DO, Last Rate: 125 mL/hr at 02/16/25 0206, New Bag at 02/16/25 020 [Transfer Hold] famotidine (PEPCID) injection 20 mg, 20 mg, Intravenous, Twice Daily, Yany Ingram MD, 20 mg at 02/15/251929 [Transfer Hold] gabapentin (NEURONTIN) capsule 300 mg, 300 mg, oral, TID, Henna Paniagua, COMPLIANCE CONSULTANT,BOAT PAINTER, 300 mg at 02/15/252135 [Transfer Hold] glucagon, human recombinant (Glucagen) injection (conc: 1 mg/mL) 1 mg, 1 mg, IntraMUSCULAR, Q 15 MINS PRN, Molly Epps PA-C [Transfer Hold] guaiFENesin (ROBITUSSIN) syrup 100 mg, 100 mg, oral, Q4H PRN, Danielle Carrero DO, 100 mg at 02/16/25 0428 [Transfer Hold] HYDROmorphone (Dilaudid) syringe 0.5-1 mg, 0.5-1 mg, Intravenous, Q4H PRN, Henna Paniagua APRN, REBECA, 0.5 mg at 02/16/25 0326 [Transfer Hold] HYDROmorphone (DILAUDID) tablet 2-4 mg, 2-4 mg, oral, Q4H PRN, eHnna Paniagua APRN, CNP, 4 mg at 02/16/25 0042 [Transfer Hold] [...] 5-10 mg, Intravenous, Q6H PRN, Lanie Sotelo, DNP,COMPLIANCE CONSULTANT, 10 mg at 02/16/25 0439 [Transfer Hold] [...] at 02/16/25 0209, 1,000 mg at 02/16/25 020 [Transfer Hold] Vancomycin Pharmacy Consult, 1 Consult, N/A, PRN, Danielle Carrero, Facility-Administered Medications Ordered in Other Encounters: lactated Ringers (LR) IV infusion, , Intravenous, CONTINUOUS PRN, Pamela Bass APRN, MASTER MERCHANDISER, NewBag at 02/16/25 0850 lidocaine 2% injection (conc: 20 mg/mL), , Intravenous, PRN, Pamela Bass, COMPLIANCE CONSULTANT, MASTER MERCHANDISER, 100 mg at 02/16/25 0853 propofol 10 mg/mL (DIPRIVAN) IV injection-BOLUS, , Intravenous, PRN, Pamela Bass, EDI, MASTER MERCHANDISER, 150 mg at 02/16/25 0853 succinylcholine chloride (ANECTINE) injection, , Intravenous, PRN, Pamela Bass, COMPLIANCE CONSULTANT, MASTER MERCHANDISER, 100 mg at 02/16/25 0853 Results for [...] care with Dr. Pickering. Molly Epps PA-C, [facility] Available on [employer] or [employer] [phone] * Patricia Herring RN - 02/16/2025 5:28 [...] BM this shift. G- Glycemic Control: Accuchecks N4alpfx for poor intake and now NPO. T- [...] Weight: 53.6 kg (118 lb 2.7 oz) [place] body weight: 47.8 kg (105 lb 6.1 oz) Adjusted ideal body weight: 50.1 kg (110 lb 7.9 oz) Labs: Recent Labs 02/15/25 0741 WBC 7.4 CREATININE 0.52* Date Day SCr CrCl Dose/Freq Time Level Comments 02/07 1 -- -- 1000 mg IV 2048* Given at OSH 02/08 2 0.28 >100 1000 mg q12h , 02/09 3 0.50 >100 1000 mg q12h , 20 02/10 4 0.82 65 1000 mg [...] with questions. Keila Beckman PharmD, BCPS Phone: [phone] * Molly Epps PA-C - 02/15/2025 8:33 [...] middle finger, L middle finger Transferred from [place]. On arrival vital signs with borderline tachycardia [...] protocol ?CAD EKG w poss prev septal CO of indeterminate age. -- outpt stress test [...] 5-10 mg, Intravenous, Q6H PRN, Lanie Sotelo, PRASANNA,COMPLIANCE CONSULTANT, 5 mg at 02/14/251954 saline with benzyl [...] Consult, 1 Consult, N/A, PRN, Danielle Carrero, Results for orders placed or [...] REPORT SIGNED BY MD Molly Rhodes PA-C, [facility] Available on [employer] or [employer] [phone] * Michael Bishop RN - 02/15/2025 6:10 [...] increase to 125 mL/hr. Danielle Carrero DO [facility] Medicine Update: Bg 61 overnight. Per RN, D5w was paused for antibiotics. Restarting D5w now. * MartinezNadia, RD - 02/14/2025 3:40 PM CDT Nutrition [...] NUTRITION-RELATED H&P Pre-Admission Nutrition History: Regular intakes DIRECTOR TRADE Other Pertinent Factors: NA Anthropometric/Physical: Height: 5' [...] 300 mg oral TID Henna Paniagua APRN, BOAT PAINTER 300 mg at 02/14/25 1406 glucagon, human recombinant (Glucagen) injection (conc: 1 mg/mL) 1 mg 1 mg IntraMUSCULAR Q 15 MINS PRN Molly Epps PA-C guaiFENesin (ROBITUSSIN) syrup 100 mg 100 mg oral Q4H PRN Danielle Carrero DO 100 mg at 02/14/25 0417 HYDROmorphone (Dilaudid) syringe 0.5-1 mg 0.5-1 mg Intravenous Q4H PRN Henna Paniagua COMPLIANCE CONSULTANT, BOAT PAINTER HYDROmorphone (DILAUDID) tablet 2-4 mg 2-4 mg oral Q4H PRN Henna Paniagua APRN, BOAT PAINTER 4 mg at 02/14/25 1618 hydrOXYzine pamoate [...] 5-10 mg Intravenous Q6H PRN Lanie Sotelo, DNP,COMPLIANCE CONSULTANT saline with benzyl alcohol injection 0.1-0.3 mL [...] - 02/14/2025 1:51 PM CDT New Referral [facility] ([facility]) received referral for possible home IV [...] further information/teaching as needed. Tyesha Morales RN [facility] Clinical Liaison * Conrad [...] Conrad Lucio MD Infectious diseases * Lanie Sotelo, PRASANNA,COMPLIANCE CONSULTANT - 02/14/2025 10:01 AM CDT PLASTIC SURGERY [...] team Lanie Sotelo APRN, PRASANNA * Nellie Lucio, PT - 02/14/2025 8:49 AM CDT PT [...] middle finger, L middle finger Transferred from [place]. On arrival vital signs with borderline tachycardia [...] and was supposed to have EGD at [place] but wasn't able to advance scope (?stricture, [...] protocol ?CAD EKG w poss prev septal CO of indeterminate age. -- outpt stress test [...] mg, 500 mg, oral, QID, Henna Paniagua, COMPLIANCE CONSULTANT, BOAT PAINTER, 500 mg at 02/13/252113 [Held by provider] [...] 5-10 mg, Intravenous, Q6H PRN, Lanie Sotelo, PRASANNA,COMPLIANCE CONSULTANT saline with benzyl alcohol injection 0.1-0.3 mL, [...] care with Dr. Pickering. Molly Epps PA-C, [facility] Available on [employer] or [employer] [phone] * Danielle Carrero DO - 02/13/2025 11:21 [...] with them in AM. Danielle Carrero DO [facility] * Rubia Velásquez RN - 02/13/2025 [...] CDT HOSPITAL ID FOLLOW-UP NOTE Discussed with ALTERATION WORKER: Wet gangrene, and osteomyelitis of Rt index [...] race. Imaging: reviewed Loly Castaneda PA-C Pager [phone] or yudi * Lanie Sotelo DNP,COMPLIANCE CONSULTANT - 02/13/2025 9:38 AM CDT PLASTIC SURGERY [...] takes 10 mg oxycodone BID at home DIRECTOR TRADE. OBJECTIVE Temp (24hrs), Av.2 ??F (36.8 ??C), [...] Sotelo APRN, PRASANNA * Henna Paniagua APRN, BOAT PAINTER - 02/13/2025 8:05 AM CDT Images from [...] acute distress, resting comfortably. HEENT: Normocephalic, atraumatic. [place] POSTA (hears better w low pitch) RESPIRATORY: Lungs [...] Results Component Value Date EKG 02/08/2025 Comment: [facility] Test Date: 2025-02-08 Pat Name: HANNAH LOO Department: A7 Room: A783 Gender: F Intelligence Analyst: DWIGHT : 1980 Requested By: YANY INGRAM MD Order Number: [id number] Reading MD: YANY INGRAM MD Measurements Intervals [place] Rate: 95 P: 74 ME: 140 QRS: 24 QRSD: 95 T: 60 [...] with orthopedic surgery and vascular surgery at [facility], who recommended transfer to [facility] for hand specialist evaluation. Patient was started [...] and was supposed to have EGD at [place] but wasn't able to advance scope (?stricture, [...] protocol ?CAD EKG w poss prev septal CO of indeterminate age. -outpt stress test CODE [...] visit was 50 minutes and included: Direct yuvz-sh-eqdu time, Review of records, Coordination of care, and Documentation of visit, adjusted pain regimen, spoke with family via phone. Henna Paniagua DNP, COMPLIANCE CONSULTANT, BOAT PAINTER, [facility] * Paula Vegas RN - [...] Progression Note Type: Shift to shift summary [id number] Length of stay: 4 days Code Status: [...] comfort Outcome: Ongoing * Henna Paniagua APRN, BOAT PAINTER - 02/12/2025 8:30 AM CDT Images from [...] acute distress, resting comfortably. HEENT: Normocephalic, atraumatic. [place] POSTA (hears better w low pitch) RESPIRATORY: Lungs [...] Component Value Date EKG 02/08/2025 Comment: [facility] Test Date: 2025-02-08 Pat Name: HANNAH LOO Department: A7 Room: [facility] Gender: F Intelligence Analyst: DWIGHT : 1980 Requested By: YANY INGRAM MD Order Number: [id number] Reading MD: YANY INGRAM MD Measurements Intervals [place] Rate: 95 P: 74 ME: 140 QRS: 24 QRSD: 95 T: 60 [...] with orthopedic surgery and vascular surgery at [facility], who recommended transfer to [facility] for hand specialist evaluation. Patient was started [...] and was supposed to have EGD at [place] but wasn't able to advance scope (?stricture, [...] protocol ?CAD EKG w poss prev septal CO of indeterminate age. -outpt stress test CODE [...] visit was 35 minutes and included: Direct ldaz-fj-ujmc time, Review of records, Coordination of care, and Documentation of visit, discussed with Plastic surgery GREGG and spoke with family via phone. Henna Paniagua DNP, COMPLIANCE CONSULTANT, BOAT PAINTER, [facility] Medicine * Lanie Sotelo DNP,EDI - 02/12/2025 [...] -discussed with bedside RN, ID MD and hospital med FUR MIXER OPERATOR Lanie Sotelo COMPLIANCE CONSULTANT, DNP * Louann Hadley RN - 02/12/2025 6:36 [...] PIV x1 D- Discharge: TBD * Nellie aJckson RN - 02/12/2025 5:23 AM CDT In patient chart, assisting primary RN with PRN medication administration. * Nellie Garcia RN - 2025 6:35 PM CDT Med-Surg Care Progression Note Type: Shift to shift summary [id number] Length of stay: 3 days Code Status: [...] Light on Outside Patient Room Fall Risk library consultant Door (NMR) Mobility Safety Interventions: Standard Interventions [...] RN receiving care * Henna Paniagua APRN, BOAT PAINTER - 2025 8:54 AM CDT Images from [...] acute distress, resting comfortably. HEENT: Normocephalic, atraumatic. [place] POSTA (hears better w low pitch) RESPIRATORY: Lungs [...] Results Component Value Date EKG 02/08/2025 Comment: [facility] Test Date: 2025-02-08 Pat Name: HANNAH LOO Department: A7 Room: A783 Gender: F Intelligence Analyst: DWIGHT : 1980 Requested By: YANY INGRAM MD Order Number: [id number] Reading MD: YANY INGRAM MD Measurements Intervals [place] Rate: 95 P: 74 ME: 140 QRS: 24 QRSD: 95 T: 60 [...] with orthopedic surgery and vascular surgery at [facility], who recommended transfer to [facility] for hand specialist evaluation. Patient was started [...] and was supposed to have EGD at [place] but wasn't able to advance scope (?stricture, [...] protocol ?CAD EKG w poss prev septal CO of indeterminate age. -outpt stress test CODE [...] visit was 35 minutes and included: Direct sjra-lj-dsse time, Review of records, Coordination of care, and Documentation of visit. Henna Paniagua DNP, COMPLIANCE CONSULTANT, BOAT PAINTER, [facility] Medicine * Louann Hadley RN - 2025 2:59 AM CDT Med-Surg Care Progression Note Type: Shift to shift summary 7 Length of stay: 3 days Code Status: [...] Progression Note Type: Shift to shift summary [id number] Length of stay: 2 days Code Status: [...] Light on Outside Patient Room Fall Risk library consultant Door (NMR) Mobility Safety Interventions: Standard Interventions [...] Intake/Output Summary (Last 24 hours) at 02/10/2025 1985 Last data filed at 02/10/2025 0550 Gross [...] acute distress, resting comfortably. HEENT: Normocephalic, atraumatic. [place] POSTA (hears better w low pitch) RESPIRATORY: Lungs [...] Results Component Value Date EKG 02/08/2025 Comment: [facility] Test Date: 2025-02-08 Pat Name: HANNAH LOO Department: A7 Room: [facility] Gender: F Intelligence Analyst: DWIGHT : 1980 Requested By: YANY INGRAM MD Order Number: [id number] Reading MD: YANY INGRAM MD Measurements Intervals [place] Rate: 95 P: 74 ME: 140 QRS: 24 QRSD: 95 T: 60 [...] with orthopedic surgery and vascular surgery at [facility], who recommended transfer to [facility] for hand specialist evaluation. Patient was started [...] and was supposed to have EGD at [place] but wasn't able to advance scope (?stricture, [...] protocol ?CAD EKG w poss prev septal CO of indeterminate age. -outpt stress test CODE [...] index finger Carlene Rosen (previously [facility] Medicine Available through [employer] 8:00am-6:00pm * Katheryn Mai, PT - 02/10/2025 9:55 AM CDT Physical Therapy Attempted PT evaluation this AM however patient declined d/t not feeling well and needing to have emesis. Bone Density Technician provided emesis bucket per request and updated RN. PT to re-attempt tomorrow as schedule allows. * Lanie Sotelo, PRASANNA,COMPLIANCE CONSULTANT - 02/10/2025 7:33 AM CDT PLASTIC SURGERY [...] regular diet Ulcer prophylaxis: protonix and pepcid (DIRECTOR TRADE meds) DVT prophylaxis: mechanical, mobilize Mobility issues: [...] Progression Note Type: Shift to shift summary [id number] Length of stay: 2 days Code Status: [...] am - 11:00 pm please re-consult through [employer]. After hours orfor urgent requests, page the on-call manager category. Rev. Haily Noel MA Central Services Tech 02/09/2025 * Lynnette Donald RN - 02/09/2025 [...] Component Value Date EKG 02/08/2025 Comment: [facility] Test Date: 2025-02-08 Pat Name: HANNAH LOO Department: A7 Room: [facility] Gender: F Intelligence Analyst: DWIGHT : 1980 Requested By: YANY INGRAM MD Order Number: [id number] Reading MD: YANY INGRAM MD Measurements Intervals [place] Rate: 95 P: 74 ME: 140 QRS: 24 QRSD: 95 T: 60 [...] with orthopedic surgery and vascular surgery at [facility], who recommended transfer to [facility] for hand specialist evaluation. Patient was started [...] protocol ?CAD EKG w poss prev septal CO of indeterminate age. -outpt stress test CODE [...] Location: Hand Carlene Rosen (previously [facility] Medicine Available through [employer] 8:00am-6:00pm * Mercedez Hui RN - 02/09/2025 6:14 AM CDT Med-Surg Care Progression Note Type: Shift to shift summary [id number] Length of stay: 1 days Code Status: [...] acute distress, resting comfortably. HEENT: Normocephalic, atraumatic. LA POSTA RESPIRATORY: Lungs clear to auscultation bilaterally. Symmetrical [...] Results Component Value Date EKG 02/08/2025 Comment: [facility] Test Date: 2025-02-08 Pat Name: HANNAH LOO Department: A7 Room: A783 Gender: F Intelligence Analyst: DWIGHT : 1980 Requested By: YANY INGRAM MD Order Number: [id number] Reading MD: YANY INGRAM MD Measurements Intervals [place] Rate: 95 P: 74 ME: 140 QRS: 24 QRSD: 95 T: 60 [...] with orthopedic surgery and vascular surgery at [facility], who recommended transfer to [facility] for hand specialist evaluation. Patient was started [...] on admit. Reviewed w plastics, plan for ksyla serge tomorrow but anticipate will need multiple [...] protocol ?CAD EKG w poss prev septal CO of indeterminate age. -outpt stress test CODE [...] Location: Hand Carlene Rosen (previously [facility] Medicine Available through [employer] 8:00am-6:00pm * Paula Vegas RN - 02/08/2025 [...] to call for help, name of assigned career developer, How to Call a Response Team, initial [...] with orthopedic surgery and vascular surgery at [facility], who recommended transfer to [facility] for hand specialist evaluation. Patient was started [...] with orthopedic surgery and vascular surgery at [facility], who recommended transfer to [facility] for hand specialist evaluation. Patient was treated [...] concerning for possible osteomyelitis. On arrival to [facility] afebrile, vitally stable. Wbc 15.5, [...] General Diagnosis: Osteomyelitis Admission/Diagnosis Details: Transferred from [facility] with wet gangrene of R hand with [...] program. Pt unwilling to perform though requested advertising writer to go over exercises with her and pt family in room.Reviewed supine, seated, and standing HEP with recommendations of sets/ reps. Encouraged outpatientPT follow up if pt needs more specialized program. [facility] AM-PAC 6-Clicks Turning over in bed [...] - GASTROENTEROLOGY Patient Name: Hannah Loo Address: [address] [place] [address] Age:45 y.o. Sex: female Admission Date/Time: 02/08/2025 12:26 AM Requesting Physician: Raheel [facility] Attending Physician: Michelle Pickering MD I [...] discussed with orthopedic surgery andvascular surgery at [facility], who recommended transfer to [facility] for hand specialist evaluation. Patient was treated [...] history. Of note she was hospitalized in [place] recently and EGD was attempted but she [...] 300 mg, oral, TID, Henna Paniagua APRN, BOAT PAINTER, 300 mg at 02/14/25 2220 glucagon, human recombinant (Glucagen) injection (conc: 1 mg/mL) 1 mg, 1 mg, IntraMUSCULAR, Q 15 MINS PRN, Molly Epps PA-C guaiFENesin (ROBITUSSIN) syrup 100 mg, 100 mg, oral, Q4H PRN, Danielle Carrero DO, 100 mg at 02/14/25 0417 HYDROmorphone (Dilaudid) syringe 0.5-1 mg, 0.5-1 mg, Intravenous, Q4H PRN, Henna Paniagua APRN, BOAT PAINTER, 0.5 mg at 02/15/25 1150 HYDROmorphone (DILAUDID) tablet 2-4 mg, 2-4 mg, oral, Q4H PRN, Henna Paniagua APRN, BOAT PAINTER, 4 mg at 02/15/25 0046 hydrOXYzine pamoate [...] 5-10 mg, Intravenous, Q6H PRN, Lanie Sotelo, PRASANNA,COMPLIANCE CONSULTANT, 10 mg at 02/15/25 0920 saline with [...] 1349 Vancomycin Pharmacy Consult, 1 Consult, N/A, PRN, Danielle Carrero, ALLERGIES/SENSITIVITIES No Known Allergies FAMILY HISTORY No [...] 60 - 100 mg/dL EGD December 2024 ([place]) - procedure aborted at 15cm, esophageal stenosis suspected CT abd/pelvis December 2024 ([place]) - no acute abnormalities Abdominal pain Vomiting [...] pt declines D/w SAMREEN Stiles-C ADDENDUM TO [facility] GI CONSULT SERVICE NOTE I, Chava Erickson [...] Weight: 53.6 kg (118 lb 2.7 oz) [place] body weight: 47.8 kg (105 lb 6.1 [...] follow. Please call with questions. Phone #: [phone] * Luis Guzman, Pharm D - 02/13/2025 [...] Weight: 53.6 kg (118 lb 2.7 oz) [place] body weight: 47.8 kg (105 lb 6.1 [...] follow. Please call with questions. Phone #: [phone] * Carrington Erickson (February), Pharm D - [...] Weight: 53.6 kg (118 lb 2.7 oz) [place] body weight: 47.8 kg (105 lb 6.1 [...] follow. Please call with questions. 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 [...] mg 200 mg oral TID Lanie Sotelo, DNP,COMPLIANCE CONSULTANT 200 mg at 742 HYDROmorphone (Dilaudid) syringe [...] 5-10 mg Intravenous Q6H PRN Lanie Sotelo, DNP,COMPLIANCE CONSULTANT saline with benzyl alcohol injection 0.1-0.3 mL [...] General Diagnosis: Osteomyelitis Admission/Diagnosis Details: Transferred from [facility] with wet gangrene of R hand with [...] of falls: No Pain Patient complained of 11 pain in R hand Objective Cognitive Status [...] from further stairs due to IV pole [facility] AM-PAC 6-Clicks Turning over in bed [...] of food, dycem, and built up foam court crier handles. Pt completed bed mobility, transfers, and [...] osteo without presence of gas. Transferred to [facility] for hand/plastics specialist. Found to [...] Patient is independent with: Feeding, Grooming, Bathing, Base Manager, Medication Management, Driving Patient needs assist with: [...] with eating, including dycem, built up foam sustainability communicator, and rocker knife. FUNCTIONAL MOBILITY Bed Mobility [...] Weight: 53.6 kg (118 lb 2.7 oz) [place] body weight: 47.8 kg (105 lb 6.1 [...] follow. Please call with questions. Phone #: [phone] * Irma Zheng, Pharm D - 2025 [...] Weight: 53.6 kg (118 lb 2.7 oz) [place] body weight: 47.8 kg (105 lb 6.1 [...] ongoing therapy is anticipated. Return to [place] [facility] 02/11 for repeat I & D and [...] follow. Please call with questions. Phone #: [phone] * Carrington Erickson (February), Pharm D - [...] Weight: 53.6 kg (118 lb 2.7 oz) [place] body weight: 47.8 kg (105 lb 6.1 [...] follow. Please call with questions. Phone #: [phone] * Jeni Nina, Pharm D - 02/09/2025 [...] Weight: 53.6 kg (118 lb 2.7 oz) [place] body weight: 47.8 kg (105 lb 6.1 [...] goal: AUC 400-600mg*hr/L Next vancomycin level due: 518 AM Antibiotic time-out to be completed 02/10/25 Discharge Recommendation: N/A Jeni Waite, PharmD, BCPS Pharmacy will continue to follow. Please call with questions. Phone #: [phone] * Taylor Gutierrez MD - 02/08/2025 1:14 [...] mg, 1 patch, Transdermal, DAILY, Carlene Rosen PAIrisC ondansetron (Zofran) injection 4-8 mg, 4-8 mg, Intravenous, Q8H PRN OR ondansetron (Zofran) disintegrating tablet 4-8 mg, 4-8 mg, oral, Q8H PRN, Yany Ingram J, MD, 4 mg at 02/08/25 1149 oxyCODONE [...] 0837 Vancomycin Pharmacy Consult, 1 Consult, N/A, PRVal Guillermo Kimberly J, MD ALLERGIES: No Known Allergies [...] Loo, 02/08/2025, Time: 7:05 AM SUBJECTIVE Hannah oLo is a 44 y.o. female who was admitted on 02/08/2025. Pharmacy was consulted by Dr. Ingram to dose and monitor Vancomycin for osteomyelitis. OBJECTIVE Antibiotic Allergies: NKDA Current/Recent Antibiotics: Zosyn (02/07 - p) 1st doses at OSH Cultures and Sensitivities: None Vitals: Temp (24hrs), Av.9 ??F, Min:98.8 ??F, Max:98.9 ??F Height: 154.9 cm (5' 1) Weight: 53.6 kg (118 lb 2.7 oz) [place] body weight: 47.8 kg (105 lb 6.1 [...] completed 02/10/25 Discharge Recommendation: N/A Angeli McdonaldD, [facility] Pharmacy will continue to follow. Please call with questions. Phone #: [phone] * Taylor Gutierrez MD - 02/08/2025 6:07 AM CDTAssociated Order(s): CONSULT PLASTIC SURGERY Brief Consult Note Dr. Ingram requested my evaluation of Ms Loo for defintiive management of wet gangrene of right index finger. The patient is a 44 yo smoker who was transferred from [facility] due to wet gangrene of the right [...] Weight: 53.6 kg (118 lb 2.7 oz) [place] body weight: 47.8 kg (105 lb 6.1 [...] follow. Please call with questions. Phone #: [phone] documented in this encounter Nursing Notes * [...] Treatment Diagnosis: Osteomyelitis Admission/Diagnosis Details: Transferred from [facility] with wet gangrene of R hand with [...] None AM-PAC Daily Activity Raw Score: 20 AM-[facility] Daily Activity CMS 0-100% Score: 38.32 AM-[facility] Daily Activity t-Scale Score: 42.03 The following [...] Hospital ) F/O Payor/Plan Precert # MEDICAID/MEDICAID [place] Subscriber Subscriber # Hannah Loo [id number] Address Phone [address] [address] [place] [address] Care Coordination Plan & Communication with Patient/Family: Moving independent in the room [facility] (intake # [phone]; nurses # [phone]), to check insurance coverage for home IV antibiotics, if ordered. Plan: Overall discharge plan has yet to be determined pending hospital course and progression with therapies. Nurse Manager Cath Lab will continue to follow to assist with discharge needs. - [facility] (intake # [phone]; nurses # [phone]), to check insurance coverage for home IV antibiotics, if ordered. Raudel Kamara RN-Case Management. # [phone] * Mercedez Hui RN - 02/10/2025 3:09 [...] Support Systems: Family members Fely Barnes (ROCK) [phone] (M) Brandin Loo (SON) [phone] (M) Primary Decision Maker: Patient DME Prior [...] daughter shared that she currently lives in [place] but pt has a lot of people looking out for her. Pt's PCP is Dr. Radha Anthony at [facility]. She does not anticipate any d/c needs. SW will follow in the event any needs arise. Care management will continue to follow. Laly Damon MSW, [facility] Pager: [phone] * Bárbara Segundo RN - 02/09/2025 12:32 [...] of bilateral hands SURGEON: Taylor Gutierrez MD SENIOR ETL DEVELOPER: Pippa Putnam RN-CPSN DATE OF SERVICE: 2025 [...] saline and hydrogen peroxide. The irrigant was industrial cleaner now. The skin was closed in [...] right index finger SURGEON: Taylor Gutierrez MD SENIOR ETL DEVELOPER: none DATE OF SERVICE: February 09, 2025 [...] with longstanding Buerger's disease, who presented to [facility] 2 nights ago as a transfer from [facility] for definitive management of infected gangrene of [...] Vancomycin and Unasyn pending culture results Taylor Curry, MD documented in this encounter ED Notes * Adria Hare MD - 02/07/2025 8:45 PM CDT [facility] MEDICINE SERVICE DIRECT ADMISSION TRANSFER NOTE Called by Dr Lee at [facility] requesting direct admission to [facility] This is a 44yo person with 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 XR suspicious for osteomyelitis, no visible gas. Given Zosyn. Will also receive vancomycin. The case was discussedwith orthopedic surgery and vascular surgery at [facility]. They recommended transfer to [facility] for hand specialist evaluation. K 2.7 -- being replaced in the ED. Lactic acid normal, renal function normal. Anticipated status: Inpatient. Full History/Physical and admission orders to be completed upon arrival Please notify bed placement upon arrival at [phone] Admitting MD will be assigned after arrival Adria Hare MD [facility] Medicine documented in this encounter Miscellaneous Notes * Med Reconciliation - Jeni Nina, Pharm D - 02/08/2025 11:28 AM CDT PHARMACY MEDICATION RECONCILIATION NOTE MEDICATION RECONCILIATION on admission by pharmacy has been completed. Prior to admission medications were reviewed with patient The DIRECTOR TRADE medication list has been updated and reflected in the chart below. Please use the DIRECTOR TRADE medication section for ordering home doses during [...] in the care of this patient. Phone #:[phone] or [phone] Time spent reconciling meds:15 min Location: face [...] Routine 02/09/2025 10:57 AM CDT Gangrene (HCC) BASIC METABOLIC PROF [...] - 2.6 mg/dL 02/16/2025 3:05 PM CDT [facility] Blood Venipuncture / Unknown 02/16/2025 2:35 PM CDT 02/16/2025 2:38 PM CDT us Molly Epps PA-C CHEMISTRY ORDERABLE Final Result Performing Organization Address [facility]/State/[facility] Co de Phone Number [facility] [address] [place], [place] [id number] * Potassium (02/16/2025 2:35 PM CDT) Only the most recent of6 resultswithin the time period is included. Potassium 4.0 3.4 - 5.1 mmol/L 02/16/2025 2:59 PM CDT [facility] Blood Venipuncture / Unknown 02/16/2025 2:35 PM CDT 02/16/2025 2:38 PM CDT us Molly Epps PA-C CHEMISTRY ORDERABLE Final Result Performing Organization Address [facility] de Phone Number [facility] [address] [address] * (ABNORMAL) POCT Glucose Meter (02/16/2025 1:58 PM CDT) Only the most recent of13 resultswithin the time period is included. GLUCOSE WB METER 156(H) 60 - 100 mg/dL 02/16/2025 2:16 PM CDT [facility] Blood 02/16/2025 1:58 PM CDT 02/16/2025 2:16 PM CDT us Michelle Pickering MD LAB POINT OF CARE TEST RESULTS F inal Result Performing Organization Address [facility] de Phone Number [facility] [address] [place] [address] * Surgical Pathology (02/16/2025 9:21 AM CDT) Only the most recent of2 resultswithin the time period is included. Case Report Surgical Pathology Case: [id number] Authorizing Provider: Chava Erickson MD Collected: 02/16/2025 09:21 AM Ordering Location: [facility] Received: 02/18/2025 09:11 AM Hospital Advanced Procedure Unit Pathologist: Christian Marquis MD Specimens: A) - Stomach (Specify) B) - Esophagus 02/19/2025 3:31 PM CDT [facility] Final Diagnosis A. Stomach, biopsy: Mild chronic inactive gastritis. Helicobacter pylori-like organisms are not identified on H&E stain. Negative for goblet cell metaplasia, dysplasia and malignancy. B. Esophagus, biopsy: Reactive squamous mucosa with fibrinopurulent exudate (ulcerative esophagitis). Viral cytopathic effect is not identified. Fungal organisms are identified. Negative for dysplasia, and malignancy. 02/19/2025 3:31 PM CDT [facility] at 1531 CDT Comment The fungal organisms are composed of yeast forms, suggestive of marta species. 02/19/2025 3:31 PM CDT [facility] Gross Description A. Stomach biopsy: Six up to 0.3 cm. IT-1. B. Esophagus biopsy: Four up to 0.3 cm. IT-1. 02/19/2025 3:31 PM CDT [facility] Microscopic Description The final diagnosis is based on the microscopic examination of all the slides. Block B is stained with PAS for fungal organisms. Fungal organisms are identified on the edge of the fibrinopurulent exudate and the surface of the squamous mucosa. 02/19/2025 3:31 PM CDT [facility] Tissue STOMACH STRUCTURE / Unknown 02/16/2025 9:21 [...] ORDERA BLE Final Result Performing Organization Address [facility] de Phone Number [facility] [address] [place] [address] * Endoscopy (02/16/2025 7:57 AM CDT) 02/16/2025 7:57 AM CDT Narrative TEST - 02/16/2025 10:00 AM CDT [facility] Patient Name: Hannah Loo Procedure Date: 02/16/2025 [...] sign off Procedure Code(s): --- Professional --- 98684, Esophagogastroduodenoscopy, flexible, transoral; with biopsy, single or multiple Diagnosis Code(s): --- Professional --- K20.90, Esophagitis, unspecified without bleeding K31.89, Other diseases of stomach and duodenum K26.9, Duodenal ulcer, unspecified as acute or chronic, without hemorrhage or perforation CPT copyright 2021 [employer]. All rights reserved. The codes documented in this report are preliminary and upon irrigation teacher review may be revised to meet current compliance requirements. MD Chava Hua MD 02/16/2025 10:00:36 AM This report has been signed electronically.Chava Erickson MD Number of Addenda: 0 Note Initiated On: 02/16/2025 7:57 AM [address] [id number] Procedure Note Chava Erickson MD - 02/16/2025 [facility] Patient Name: Hannah Loo Procedure Date: 02/16/2025 [...] sign off Procedure Code(s): --- Professional --- 78550, Esophagogastroduodenoscopy, flexible, transoral; with biopsy, single or multiple Diagnosis Code(s): --- Professional --- K20.90, Esophagitis, unspecified without bleeding K31.89, Other diseases of stomach and duodenum K26.9, Duodenal ulcer, unspecified as acute or chronic, without hemorrhage or perforation CPT copyright 2021 [employer]. All rights reserved. The codes documented in this report are preliminary and upon irrigation teacher reviewmay be revised to meet current compliance requirements. MD Chava Hua MD 02/16/2025 10:00:36 AM This report has been signed electronically.Chava Erickson MD Number of Addenda: 0 Note Initiated On: 02/16/2025 7:57 AM [address] [place] [address] Chava Erickson MD PROCEDURE ORDERABLE Final Result TEST * (ABNORMAL) Basic Metabolic Profile Magnesium (02/16/2025 7:06 AM [facility]) Only the most recent of9 resultswithin the time period is included. Sodium 141 136 - 145 mmol/L 02/16/2025 7:56 AM [facility] Potassium 3.1(L) 3.4 - 5.1 mmol/L 02/16/2025 7:56 AM [facility] Chloride 109(H) 98 - 108 mmol/L 02/16/2025 7:56 AM [facility] Carbon Dioxide 30 20 - 31 mmol/L 02/16/2025 7:56 AM [facility] BUN (Urea Nitro) <5(L) 9 - 23 mg/dL 02/16/2025 7:56 AM [facility] Creatinine 0.53(L) 0.55 - 1.02 mg/dL 02/16/2025 7:56 AM [facility] Est GFR (CKD-EPI) >60.00 >60.00 mL/min/1. 73m2 02/16/2025 7:56 AM [facility] Comment:Calculation based on the Chronic Kidney Disease Epidemiology Collaboration (CKD-EPI) equation refit without adjustment for race. Glucose 90 74 - 106 mg/dL 02/16/2025 7:56 AM [facility] Calcium, Serum 7.4(L) 8.7 - 10.4 mg/dL 02/16/2025 7:56 AM [facility] Anion Gap 2.0 0.0 - 15.0 mmol/L 02/16/2025 7:56 AM [facility] Magnesium 1.5(L) 1.6 - 2.6 mg/dL 02/16/2025 7:56 AM [facility] Blood Venipuncture / Unknown 02/16/2025 7:06 AM CDT 02/16/2025 7:28 AM CDT Yany Ingram MD CHEMISTRY ORDERABLE Final Result [facility] [address] [place] [address] * (ABNORMAL) CBC (HGB,HCT,WBC,RBC,Platelet) (02/16/2025 7:06 AM CDT) Only the most recent of9 resultswithin the time period is included. WBC 5.4 4.3 - 10.8 K/uL 02/16/2025 7:36 AM [facility] RBC 2.14(L) 4.20 - 5.40 M/uL 02/16/2025 7:36 AM [facility] Hemoglobin 7.6(L) 12.0 - 16.0 gm/dL 02/16/2025 7:36 AM [facility] Hematocrit 24.2(L) 36.0 - 48.0 % 02/16/2025 7:36 AM [facility] MCV 113(H) 80 - 100 fL 02/16/2025 7:36 AM [facility] MCH 36(H) 27 - 33 pg 02/16/2025 7:36 AM [facility] MCHC 31(L) 33 - 36 gm/dL 02/16/2025 7:36 AM [facility] RDW 14.7(H) 11.5 - 14.5 % 02/16/2025 7:36 AM [facility] Platelet Count 219 150 - 400 K/UL 02/16/2025 7:36 AM [facility] MPV 9.9 6.5 - 12 fL 02/16/2025 7:36 AM CDT [facility] Blood Venipuncture / Unknown 02/16/2025 7:06 AM CDT 02/16/2025 7:29 AM CDT us Yany Ingram MD HEMATOLOGY ORDERABLE Hailee merchant Result [facility] [address] [place] [address] * XR ABDOMEN FLAT & UPRIGHT (02/15/2025 [...] bases. REPORT SIGNED BY DR. Diane Elizalde us Molly Epps PA-C XRAY ORDERABLE Final Res ult * Lipase (02/15/2025 7:41 AM CDT) Lipase 53 12 - 53 U/L 02/15/2025 3:37 PM CDT [facility] Blood Venipuncture / Unknown 02/15/2025 7:41 AM CDT 02/15/2025 8:10 AM CDT Molly Epps PA-C CHEMISTRY ORDERABLE Final Result Performing Organization Address City/[facility]/ZIP Co de Phone Number [facility] [address] [place], [place] [address] * (ABNORMAL) Liver Profile (02/15/2025 7:41 AM CDT) Pathologist [facility] ALT 16 7 - 40 U/L 02/15/2025 9:53 AM T [facility] Alkaline Phosphatase 528(H) 46 - 116 U/L 02/15/2025 9:53 AM T [facility] AST (SGOT) 11(L) 13 - 40 U/L 02/15/2025 9:53 AM T [facility] Protein Total 4.8(L) 5.7 - 8.2 g/dL 02/15/2025 9:53 AM T [facility] Albumin 1.5(L) 3.4 - 5.0 g/dL 02/15/2025 9:53 AM T [facility] Bilirubin-Direct <0.10 <0.40 mg/dL 02/15/2025 9:53 AM T [facility] Bilirubin-Total 0.20(L) 0.30 - 1.20 mg/dL 02/15/2025 9:53 AM T [facility] Blood Venipuncture / Unknown 02/15/2025 7:41 AM CDT 02/15/2025 8:10 AM CDT Molly Epps PA-C CHEMISTRY ORDERABLE Final Result Performing Organization Address City/[facility]/ZIP Co de Phone Number [facility] [address] [facility] [place] [address] * Vancomycin - Random (02/15/2025 7:41 AM CDT) Only the most recent of2 resultswithin the time period is included. Vancomycin Random 22.1 11.0 - 45.0 ug/mL 02/15/2025 9:29 AM CDT [facility] Blood Venipuncture / Unknown 02/15/2025 7:41 AM CDT 02/15/2025 8:10 AM CDT us Keila Beckman Pharm D CHEMISTRY ORDERABLE F inal Result Performing Organization Address [facility] de Phone Number [address] [place] [address] * Extra Tube-EDTA (Lab Use Only) (02/14/2025 8:35 PM CDT) Only the most recent of2 resultswithin the time period is included. Blood 02/14/2025 8:35 PM CDT 02/14/2025 8:44 PM CDT us Moises Cm MD HEMATOLOGY ORDERABLE Final Result Performing Organization Address [facility] Number [address] [place] [address] * Blood Aerobic (1 Bottle) Culture (02/14/2025 2:14 AM CDT) Only the most recent of2 resultswithin the time period is included. Blood Culture (<5 Years Old/Short Draw) No growth 5 days. 02/19/2025 2:20 AM CDT [facility] Blood VENOUS BLOOD SPECIMEN / Unknown 02/14/2025 2:14 AM CDT 02/14/2025 2:14 AM CDT us Michelle Pickering MD MICROBIOLOGY ORDERABLE Final Res ult Performing Organization Address [facility] de Phone Number [facility] [place] [address] * (ABNORMAL) Admit MRSA by PCR (For IP Use Only) (02/14/2025 1:13 AM CDT) Admit MRSA by PCR Methicillin Resistant Staph. Aureus (MRSA) detected by PCR.(A) No Methicillin Resistant Staph. Aureus (MRSA) detected by PCR. 02/14/2025 4:13 AM CDT [facility] Nasal NASAL STRUCTURE / Unknown 02/14/2025 1:13 AM CDT 02/14/2025 1:40 AM CDT us Danielle Carrero DO MICROBIOLOGY ORDERABLE Final Result [facility] [place] [address] * Extra Tube PST (Lab Use Only) (02/14/2025 12:33 AM CDT) Blood 02/14/2025 12:3 3 AM CDT 02/14/2025 1:09 AM CDT us Michelle Pickering MD CHEMISTRY ORDERABLE Final Result [facility] [place] [address] * XR CHEST AP PORT (02/13/2025 10:13 [...] 5 days. TONIO 02/16/2025 9:36 AM CDT [facility] Site-Microbiology STRUCTURE OF RIGHT INDEX FINGER / Unknown 2025 1:03 PM CDT Comment:Pre-op diagnosis: Gangrene, not elsewhere classified (HCC) [I96] Taylor Gutierrez MD MICROBIOLOGY ORDERABLE Final Result [facility] [address] [place] [address] * (ABNORMAL) Culture-Aerobic (2025 1:03 PM CDT) Only the most recent of3 resultswithin the time period is included. Aerobic Culture Few colonies of Methicillin resistant Staphylococcus aureus (MRSA)(A) TONIO 02/14/2025 6:56 AM CDT [facility] Aerobic Culture One colony of Escherichia coli(A) TONIO 02/14/2025 6:56 AM CDT [facility] Gram Stain Result No bacteria seen. 02/14/2025 6:56 AM CDT [facility] Gram Stain Result No WBC's seen / LPF 02/14/2025 6:56 AM CDT [facility] Site-Microbiology STRUCTURE OF RIGHT INDEX FINGER / [...] MICROBIOLOGY ORDERABLE Final Result Performing Organization Address City/State/[facility] de Phone Number [facility] [address] [place] [address] * (ABNORMAL) Procalcitonin (2025 7:14 AM CDT) Only the most recent of2 resultswithin the time period is included. Procalcitonin 4.22(H) <=0.05 ng/mL 2025 8:03 AM CDT [facility] Blood Capillary / Unknown 2025 7:14 AM CDT 2025 7:22 AM CDT Narrative [facility] - 2025 8:03 AM CDT PROCALCITONIN REFERENCE [...] Rosen PA-C CHEMISTRY ORDERABLE Fi nal Result [facility] [address] [place] [id number] * HCG Urine (02/08/2025 8:42 AM CDT) hCG Urine Negative Negative 02/08/2025 8:53 AM CDT [facility] Urine URINE SPECIMEN / Unknown 02/08/2025 8:42 AM CDT 02/08/2025 8:46 AM CDT us Yany Ingram MD URINE ORDERABLE Final Res ult [facility] [address] [place] [id number] * Electrocardiogram (02/08/2025 5:57 AM CDT) EKG HVI YENNI Comment: [facility] Test Date: 2025-02-08 Pat Name: HANNAH LOO Department: A7 Room: [facility] Gender: F Intelligence Analyst: DWIGHT : 1980 Requested By: YANY INGRAM MD Order Number: [id number] Reading MD: Meagan Torres MD Measurements Intervals [place] Rate: 95 P: 74 ME: 140 QRS: 24 QRSD: 95 T: 60 [...] ORDERABLE Final Res ult Performing Organization Address [facility] de Phone Number [facility] [address] [place] [address] * (ABNORMAL) Creatinine eGFR (02/08/2025 5:24 AM CDT) Creatinine 0.31(L) 0.55 - 1.02 mg/dL 02/08/2025 7:25 AM CDT [facility] Est GFR (CKD-EPI) >60.00 >60.00 mL/min/1. 73m2 02/08/2025 7:25 AM CDT [facility] Comment:Calculation based on the Chronic Kidney Disease Epidemiology Collaboration (CKD-EPI) equation refit without adjustment for race. Blood Venipuncture / Unknown 02/08/2025 5:24 AM CDT 02/08/2025 5:58 AM CDT us Yany Ingram MD CHEMISTRY ORDERABLE Final Result Performing Organization Address [facility] de Phone Number [facility] [address] [place] [address] * ABORh Confirm (Lab Use Only) (02/08/2025 5:04 AM CDT) Group and Rh A Positive 02/08/2025 6:51 AM CDT [facility] Blood 02/08/2025 5:04 AM CDT 02/08/2025 5:45 AM CDT us Yany Ingram MD BLOOD BANK ORDERABLE Hailee l Result Performing Organization Address [facility]/ZIP Co de Phone Number [facility] [address] [place] [address] [facility] [address] [place] [address] * Lactic Acid (02/08/2025 1:48 AM CDT) Pathologist [facility] Lactic Acid 0.8 0.7 - 2.1 mmol/L 02/08/2025 1:49 AM CDT [facility] Blood 02/08/2025 1:48 AM CDT 02/08/2025 1:48 AM CDT us Yany Ingram MD CHEMISTRY ORDERABLE Final Result Performing Organization Address City/[facility]/ZIP Co de Phone Number [address] [address] * Type and Screen (02/08/2025 1:45 AM CDT) Group and Rh A Positive 02/08/2025 2:49 AM CDT [facility] Antibody Screen Negative 02/08/2025 2:49 AM CDT [facility] Blood 02/08/2025 1:45 AM CDT 02/08/2025 1:52 AM CDT us Yany Ingram MD BLOOD BANK ORDERABLE Edit ed Result - Final Performing Organization Address [facility] Co de Phone Number [facility] [address] [facility] [place] [address] [facility] [address] [place] [address] * (ABNORMAL) C-Reactive Protein (02/08/2025 1:45 AM CDT) C Reactive Protein 8.2(H) <=0.5 mg/dL 02/08/2025 2:25 AM CDT [facility] Blood 02/08/2025 1:45 AM CDT 02/08/2025 1:52 AM CDT Yany Ingram MD IMMUNOLOGY ORDERABLE Hailee l Result Performing Organization Address [facility] de Phone Number [facility] [address] [place] [address] [phone] * (ABNORMAL) Basic Metabolic Profile (02/08/2025 1:45 AM CDT) Sodium 139 136 - 145 mmol/L 02/08/2025 2:25 AM [facility] Potassium 3.5 3.4 - 5.1 mmol/L 02/08/2025 2:25 AM [facility] Chloride 107 98 - 108 mmol/L 02/08/2025 2:25 AM [facility] Carbon Dioxide 28 20 - 31 mmol/L 02/08/2025 2:25 AM [facility] BUN (Urea Nitro) 8(L) 9 - 23 mg/dL 02/08/2025 2:25 AM [facility] Creatinine 0.28(L) 0.55 - 1.02 mg/dL 02/08/2025 2:25 AM [facility] Est GFR (CKD-EPI) >60.00 >60.00 mL/min/1. 73m2 02/08/2025 2:25 AM [facility] Comment:Calculation based on the Chronic Kidney Disease Epidemiology Collaboration (CKD-EPI) equation refit without adjustment for race. Glucose 77 74 - 106 mg/dL 02/08/2025 2:25 AM T [facility] Calcium, Serum 8.0(L) 8.7 - 10.4 mg/dL 02/08/2025 2:25 AM T [facility] Anion Gap 4.0 0.0 - 15.0 mmol/L 02/08/2025 2:25 AM [facility] Blood 02/08/2025 1:45 AM CDT 02/08/2025 1:52 AM CDT us Yany Ingram MD CHEMISTRY ORDERABLE Final Result [facility] [address] [place] [address] * (ABNORMAL) CBC / Diff (02/08/2025 1:45 AM CDT) WBC 15.5(H) 4.3 - 10.8 K/uL 02/08/2025 2:07 AM [facility] RBC 2.88(L) 4.20 - 5.40 M/uL 02/08/2025 2:07 AM [facility] Hemoglobin 10.1(L) 12.0 - 16.0 gm/dL 02/08/2025 2:07 AM [facility] Hematocrit 32.6(L) 36.0 - 48.0 % 02/08/2025 2:07 AM [facility] MCV 113(H) 80 - 100 fL 02/08/2025 2:07 AM [facility] MCH 35(H) 27 - 33 pg 02/08/2025 2:07 AM [facility] MCHC 31(L) 33 - 36 gm/dL 02/08/2025 2:07 AM [facility] RDW 15.3(H) 11.5 - 14.5 % 02/08/2025 2:07 AM [facility] Platelet Count 370 150 - 400 K/UL 02/08/2025 2:07 AM [facility] MPV 8.9 6.5 - 12 fL 02/08/2025 2:07 AM [facility] PMN % 86.5 % 02/08/2025 2:07 AM [facility] IG % 0.8 <=1.0 % 02/08/2025 2:07 AM [facility] Lymphocyte % 7.8 % 02/08/2025 2:07 AM [facility] Monocyte % 4.1 % 02/08/2025 2:07 AM [facility] Eosinophil % 0.5 % 02/08/2025 2:07 AM [facility] Basophil % 0.3 % 02/08/2025 2:07 AM [facility] PMN Absolute 13.42(H) 1.80 - 7.80 K/uL 02/08/2025 2:07 AM [facility] Lymphocyte Absolute 1.21 1.00 - 4.00 K/uL 02/08/2025 2:07 AM [facility] Monocyte Absolute 0.64 0.00 - 1.00 K/uL 02/08/2025 2:07 AM [facility] Eosinophil Absolute 0.08 0.00 - 0.45 K/uL 02/08/2025 2:07 AM [facility] Basophil Absolute 0.04 0.00 - 0.20 K/uL 02/08/2025 2:07 AM [facility] Nucl RBC % 0.0 0.0 - 0.0 /100 WBC 02/08/2025 2:07 AM [facility] Nucl RBC Absolute 0.00 0.00 - 0.00 K/uL 02/08/2025 2:07 AM [facility] Blood 02/08/2025 1:45 AM CDT 02/08/2025 1:52 AM T us Yany Ingram MD HEMATOLOGY ORDERABLE Hailee merchant Result [facility] [address] [place] [id number] * XR OUTSIDE UPPER EXTREMITY STUDY (02/07/2025 [...] Gangrene of finger of right hand (HCC) Gangrene, not elsewhere classified (HCC) documented in this encounter Admitting Diagnoses Diagnosis [...] modification) on 02/09/25 at 1300, Until Discontinued Given 02/16/2025 11:24 AM CDT 1,000 m g Given 02/15/2025 9:36 PM CDT 1,000 mg Given 02/15/2025 5:35 PM CDT 1,000 mg BUPivacaine 0.25% (MARCAINE) injection INTRA-PROCEDURE NEEDED, Starting on Mon02/11/25 at 1314, Until Mon02/11/25 at 1331, Intra-Op Given 2025 1:14 PM CDT 2 mL Procedural D50W IV syringe 25-50 mL [...] dose (after last modification) on Mon02/13/25 at 0815, Until Discontinued Given 02/16/2025 1:25 [...] 3% topical solution INTRA-PROCEDURE NEEDED, Starting on Mon02/11/25 at 1309, Until Mon02/11/25 at 1331, Intra-Op, per procedure Given 2025 1:09 PM CDT 50 mL Proce dural HYDROmorphone (Dilaudid) syringe 0.5-1 mg 0.5-1 mg, Intravenous, EVERY 4 HOURS NEEDED, Starting on [facility] 02/13/25 at 0935, Until Mon02/16/25 at 2223, Pain, when NOT taking PO, Pain, if oral opioid not effective or tolerated Given 02/16/2025 3:26 AM CDT 0.5 mg Given 02/15/2025 4:24 PM CDT 0.5 mg Given 02/15/2025 2:17 PM CDT 0.5 mg HYDROmorphone (DILAUDID) tablet 2-4 mg 2-4 mg, oral, EVERY 4 HOURS NEEDED, Starting on [facility] 02/13/25 at 0937, Until Mon02/16/25 at 2223, pain [...] For C. difficile, anaerobic bacteremia, parasitic, or METAL TRIM ERECTOR infections utilize q8h frequency. For all other infections, utilize q12h frequency., On hold since Mon02/13/2025 at 2327 until manually unheldIndications:ORTHO, [place] JOINT INFECTIONS Given 02/13/2025 9:14 PM CDT [...] NEEDED, Starting on 02/08/25 at 0049, Until [place] 02/16/25 at 2223, IV start or restart sulfamethoxazole 800 mg-trimethoprim 160 mg (BACTRIM DS;SEPTRA DS) tablet 160 mg 160 mg (1 tablet), oral, TWICE A DAY, First dose on [facility] 02/13/25 at 1800, Until Discontinued, Dosing of sulfamethoxazole/trimethoprim (Bactrim or Septra products) is based on the trimethoprim component. Equivalency of oral suspension to tablet is: 10 mL = 1 SS tab, 20 mL = 1 DS tab. , On hold since [facility] 02/13/2025 at 2327 until manually unheldIndications:ORTHO, [place] JOINT INFECTIONS Given 02/13/2025 6:09 PM CDT 160 mg vancomycin (VANCOCIN) 1,000 mg in sodium chloride 0.9 % 250 mL IV piggyback 1,000 mg (rounded from 1,072 mg = 20 mg/kg 53.6 kg), at 250 mL/hr, Intravenous, EVERY 12 HOURS (NS), First dose (after last modification) on [facility] 02/15/25 at 1400, Until DiscontinuedIndications:PNEUMONIA , [...] 0859 (Given - Provider: Maria Guadalupe Cagle RN)195 (Given - Provider: Rubia Velásquez RN) 0802 [...] Torres RN)1406 (Given - Provider: Maria Guadalupe Cagle, SINGH)2220 [...] Procedure)1053 (MAR Unhold - Provider: Interface, Incoming Adt)1325 (Given - Provider: Mila De Leon, RN) MAGNESIUM REPLACEMENT INTRAVENOUS - NOT FOR DOCUMENTATION PURPOSES Intravenous, PER PROTOCOL, Starting on 02/08/25 at 0155, Until 02/16/25 at 2223 0824 ([facility] Hold - Provider: Interface, Incoming Adt - Reason: Procedure)1053 ([facility] Unhold - Provider: Interface, Incoming Adt) magnesium [...] (New Bag - Provider: Maria Guadalupe Cagle, RN) magnesium sulfate 2 gram / 50mL (4%) IV piggyback (PREMIX) 2 g (COMPLETED) 2 g, Intravenous, ONCE, 1 dose, On 02/16/25 at 0800, Administer over 2 Hours, 1 g magnesium replacement should be given over 1 hour (may give 2 g over 1 hour in ICU/ED setting). 4 grams should NOT be used for magnesium replacement. 0824 ([facility] Hold - Provider: Interface, Incoming Adt - Reason: Procedure)1053 (MAR Unhold - Provider: Interface, Incoming Adt)1117 (New Bag - Provider: Mila De Leon, RN)1117 (Auto Rate Verify - Provider: Mila Guillermo Subject, RN)1155 (Auto Rate Verify - Provider: Mila [...] For C. difficile, anaerobic bacteremia, parasitic, or METAL TRIM ERECTOR infections utilize q8h frequency. For all other [...] RN)1403 (New Bag - Provider: Maria Guadalupe M. Cagle, RN)2127 (New Bag - Provider: Rubia Velásquez RN) 0706 (New Bag - Provider: Michael Bishop RN)0803 (Paused - Provider: Mila De Leon, RN)0810 (Restarted - Provider: Mila De Leon, RN)1047 (Stopped - Provider: Mila Guillermo Subject, RN)1501 (New Bag - Provider: Mila De Leon, RN)1756 (Auto Rate Verify - Provider: Rubia Velásquez RN)2139 (New Bag - Provider: Rubia Velásquez RN) 0524 (New Bag - Provider: Patricia Herring RN)0846 (Stopped - Provider: Mila De [...] at 1100, Administer over 60 Minutes 0824 ([facility] Hold - Provider: Interface, Incoming Adt - Reason: Procedure)0900 (Canceled Entry - Provider: Mila De Leon, RN)1000 (Canceled Entry - Provider: Mila De Leon, RN)1052 (New Bag - Provider: Mila De Leon, RN)1053 ([facility] Unhold - Provider: Interface, Incoming Adt)1059 (Canceled [...] at 0155, Until 02/16/25 at 2223 0824 ([facility] Hold - Provider: Interface, Incoming Adt - Reason: Procedure)1053 ([facility] Unhold - Provider: Interface, Incoming Adt) POTASSIUM REPLACEMENT ORAL - NOT FOR DOCUMENTATION PURPOSES oral, PER PROTOCOL, Starting on 02/08/25 at 0155, Until 02/16/25 at 2223, May request packets if patient requires liquid potassium. 0824 ([facility] Hold - Provider: Interface, Incoming Adt - Reason: Procedure)1053 ([facility] Unhold - Provider: Interface, Incoming Adt) sulfamethoxazole [...] 1 DS tab. , On hold since [facility] 02/13/2025 at 2327 until manually unheld 0800 (Automatically Held - Provider: Danielle Crarero DO)1999 (Automatically Held - Provider: Danielle Carrero DO) 0800 (Not Given - Provider: Mila De Leon, RN - Reason: deferred)1999 (Automatically Held - Provider: Danielle Carrero DO) 0800 (Not Given - Provider: Mila De Leon RN - Reason: deferred)222 (Unheld by provider - Provider: Onbrenda Autodiscontinue) vancomycin (VANCOCIN) 1,000 mg in sodium chloride 0.9 % 250 mL IV piggyback (CANCELED) 1,000 mg (rounded from 1,072 mg = 20 mg/kg 53.6 kg), at 250 mL/hr, Intravenous, EVERY 18 HOURS (NS), First dose on [facility] 02/15/25 at 0000, Until Discontinued 0121 (New Bag - Provider: Michael Bishop RN) vancomycin (VANCOCIN) 1,000 mg in sodium chloride 0.9 % 250 mL IV piggyback 1,000 mg (rounded from 1,072 mg = 20 mg/kg 53.6 kg), at 250 mL/hr, Intravenous, EVERY 12 HOURS (NS), First dose (after last modification) on [facility] 02/15/25 at 1400, Until Discontinued 1349 [...] Mila De Leon, RN)1050 (Restarted - Provider: iMla De Leon, RN)1053 (MAR Unhold - Provider: Interface, Incoming Adt)1155 (Auto Rate Verify - Provider: Mlia De Leon, RN)1214 (Paused - Provider: Mila [...] - Provider: Mila De Leon, RN) 0824 ([facility] Hold - Provider: Interface, Incoming Adt - Reason: Procedure)1053 (MAR Unhold - Provider: Interface, Incoming Adt) saline [...] due to feeling full and nausous) 0824 ([facility] Hold - Provider: Interface, Incoming Adt - Reason: Procedure)1053 ([facility] Unhold - Provider: Interface, Incoming Adt) D50W IV syringe 25-50 mL 25-50 mL, Intravenous, NEEDED, Starting on 02/16/25 at 0947, Until 02/16/25 at 2223, Pre-Op, hypoglycemia glucagon, human recombinant (Glucagen) injection (conc: 1 mg/mL) 1 mg 1 mg, IntraMUSCULAR, EVERY 15 MINUTES NEEDED, 2 doses, Starting on 02/14/25 at 0909, Until 02/16/25 at 2223, for hypoglycemia 0824 ([facility] Hold - Provider: Interface, Incoming Adt - Reason: Procedure)1053 ([facility] Unhold - Provider: Interface, Incoming Adt) guaiFENesin (ROBITUSSIN) syrup 100 mg 100 mg, oral, EVERY 4 HOURS NEEDED, Starting on [place] 02/13/25 at 2114, Until 02/16/25 at 2223, cough 0417 (Given - Provider: Axel Torres RN) 1958 (Given - Provider: Rubia Velásquez, SINGH) 0428 (Given - Provider: Ptaricia Herring, SINGH)0824 ([facility] Hold - Provider: Interface, Incoming Adt - Reason: Procedure)1053 ([facility] Unhold - Provider: Interface, Incoming Adt) HYDROmorphone [...] 0326 (Given - Provider: Patricia Herring, SINGH)0824 ([facility] Hold - Provider: Interface, Incoming Adt - Reason: Procedure)1053 ([facility] Unhold - Provider: Interface, Incoming Adt) HYDROmorphone (DILAUDID) tablet 2-4 mg 2-4 mg, oral, EVERY 4 HOURS NEEDED, Starting on [place] 02/13/25 at 0937, Until 02/16/25 at 2223, pain 0110 (Given - Provider: Axel Torres RN)0521 (Given - Provider: Axel Torres RN)1203 (Given - Provider: Maria Guadalupe Cagle RN)1618 (Given - Provider: Shashank Chen RN)2037 (Given - Provider: Rubia Velásquez, SINGH) 004 (Given - Provider: Michael Bishop, RN)193 (Given - Provider: Rubia Velásquez, SINGH) 004 (Given - Provider: Jacquelyn Yates RN)0824 ([facility] Hold - Provider: Interface, Incoming Adt - Reason: Procedure)1053 ([facility] Unhold - Provider: Interface, Incoming Adt)1132 (Given - Provider: Mila De Leon RN)1555 (Given - Provider: Rubia Velásquez RN) hydrOXYzine pamoate (Vistaril) capsule 25-50 mg 25-50 mg, oral, EVERY 6 HOURS NEEDED, Starting on 02/09/25 at 1257, Until Sun 5 at 2223, Adjuvant to pain management 161 (Given - Provider: Shashank Chen RN) 08 ([facility] Hold - Provider: Interface, Incoming Adt - Reason: Procedure)1053 ([facility] Unhold - Provider: Interface, Incoming Adt)1325 (Given - Provider: Mila De Leon RN) lidocaine (LMX-4) topical cream 1 Application topical, NEEDED, Starting on 02/08/25 at 0049, Until Sun 5 at 2223, IV start or restart if patient prefers a needleless local anesthetic. 0824 ([facility] Hold - Provider: Interface, Incoming Adt - Reason: Procedure)1053 ([facility] Unhold - Provider: Interface, Incoming Adt) lidocaine 1% injection (conc: 10 mg/mL) 0.1-0.3 mL 0.1-0.3 mL, Intradermal, NEEDED, Starting on 02/08/25 at 0049, Until Sun 5 at 2223, Local Anesthesia, IV start or restart 0824 ([facility] Hold - Provider: Interface, Incoming Adt - Reason: Procedure)1053 ([facility] Unhold - Provider: Interface, Incoming Adt) metoclopramide [...] (See Alternative - Provider: Patricia Herring, SINGH)0824 ([facility] Hold - Provider: Interface, Incoming Adt - Reason: Procedure)1053 ([facility] Unhold - Provider: Interface, Incoming Adt) ondansetron [...] RN) 0109 (See Alternative - Provider: Michael Bishop, SINGH)0801 (Given - Provider: Mila De Leon RN)1626 (Given - Provider: Rubia Velásquez RN)1930 (See Alternative - Provider: Rubia Velásquez RN) 0326 (Given - Provider: Patricia Herring RN)0824 ([facility] Hold - Provider: Interface, Incoming Adt - Reason: Procedure)1053 ([facility] Unhold - Provider: Interface, Incoming Adt) prochlorperazine (COMPAZINE) injection 5-10 mg 5-10 mg, Intravenous, EVERY 6 HOURS NEEDED, Starting on 02/10/25 at 1023, Until 02/16/25 at 2223, Nausea/Vomiting, 2nd choice, nausea 1955 (Given - Provider: Rubia Velásquez RN) 0920 (Given - Provider: Mila De Leon RN) 0439 (Given - Provider: Patricia Herring RN)0824 ([facility] Hold - Provider: Interface, Incoming Adt - Reason: Procedure)1053 ([facility] Unhold - Provider: Interface, Incoming Adt) saline with benzyl alcohol injection 0.1-0.3 mL 0.1-0.3 mL, Intradermal, NEEDED, Starting on 02/08/25 at 0049, Until 02/16/25 at 2223, IV start or restart 0824 ([facility] Hold - Provider: Interface, Incoming Adt - Reason: Procedure)1053 ([facility] Unhold - Provider: Interface, Incoming Adt) Vancomycin Pharmacy Consult Pneumonia diagnosis code: Suspected HAP/VAP (gram negative or MRSA pneumonia) 08 ([facility] Hold - Provider: Interface, Incoming Adt - Reason: Procedure)1053 ([facility] Unhold - Provider: Interface, Incoming Adt) Linked [...]
--- OUTSIDE RECORDS SUMMARY | 2025-02-16 08:15 | XMS_ITS | Encounter Summary ---
Author Organization [facility] Address [address] [place] [id number] Care Team Providers Care Web Specialist Name Role Phone Unavailable Primary Care Provider Unavailabl e Reason for Visit * Inpatient Admission Specialty Diagnoses / Procedures Referred By Aristides vega Referred To Contact Diagnoses Osteomyelitis Referral ID Status Reason Start Date Expiration Date Visits Re quested Visits Authorized [id number] 1 1 Encounter Details Date Type Department Care Team (Latest Contact Info) Description 02/16/2025 8:15 AM CDT - 02/16/2025 8:[address] [facility] Advanced Procedure Unit [address] [place] [address] [id number] [place] [address] [facility] [address] [place] [address] ESOPHAGOGASTRODUODENOSCOPY WITH BIOPSY Surgery Details Date/Time Status Location OR Service Patient Class Case Class Case Type Trauma Case? 02/16/2025 8:15 AM Posted [facility] 20 Gastroenterology Inpatient Panel 1 Procedure LRB Anes Op Region Wound Class Comments ESOPHAGOGASTRODUODENOSCOPY W ITH BIOPSY N/A MAC Gastrointestinal Not Applicable (0) Surgeon Surgeon Role Service Panel Chava Erickson MD Primary Gastroenterology 1 documented in this encounter Social History Tobacco Use Types Packs/Day Years Used Date Smoking Tobacco: Every Day Cigarettes Cigars Tobacco Cessation:Ready to Q uit: Yes; Counseling Given: Not Answered [facility] Utilities Answer Date Recorded In the past 12 months has e [employer], gas, oil, or water Punctil threatened to shut off services in your [...] money to buy more. Never true 02/09/20 Within the past 12 months, t he [...] any time in the past 12 m [facility], were you homeless or living in a custodial (including now)? No 02/08/2025 Comments No Sex and Gender Information Value Date Recorded Sex Assigned at Not on file Legal Sex Female 8:23 PM CDT Gender Identity Not on file Sexual Orientation Not on file documented as of this encounter Last Filed Vital Signs Vital Sign Reading Time Taken Comments Blood Pressure 137/99 02/16/2025 8:26 AM CDT Pulse 78 02/16/2025 8:26 AM CDT Temperature 36.8 C (98.3 F) 02/16/2025 8:26 AM CDT Respiratory Rate 16 02/15/2025 11:28 PM CDT Oxygen Saturation 90% 02/16/2025 8:26 AM CDT Inhaled Oxygen Concentration - - Weight [...] middle finger, L middle finger Transferred from [place]. On arrival vital signs with borderline tachycardia [...] discharge. ?CAD EKG w poss prev septal IN of indeterminate age. -- outpt stress test [...] hours for22 days Indications: ORTHO, BONE AND BURNS PAIUTE JOINT INFECTIONS. Qty: 66 tablet, Refills: 0 nicotine (NICOTROL) 7 mg/24 hr TD patch Apply 1 patch (7 mg) to skin once daily. Qty: 30 patch, Refills: 0 sulfamethoxazole 800 mg-trimethoprim 160 mg (BACTRIM DS;SEPTRA DS) 800-160 mg oral tablet Take 1 tablet (160 mg) by mouth twice a day for 22 days Indications: ORTHO, BONE AND BURNS PAIUTE JOINT INFECTIONS. Qty: 44 tablet, Refills: 0 [...] follow-up Taylor Gutierrez MD Specialty: Plastic Surgery [address] [place] [address] Specify time frame for follow up?: 2 Weeks Call to make a follow-up appointment with Dr. Gutierrez (hand surgeon) for suture removal in [address] Gutierrez [phone] [facility] [place] Specialty: Gastroenterology, Hepatology [address] [place] [address] , [facility] [address] [place] [place] [id number] Specify time frame for follow up?: 6 Weeks Instructions to follow-up provider: follow up in 8 weeks for repeat EGD Radha Anthony MD Specialty: Family Medicine [address] [place] [id number] Specify time frame for follow up?: 1 Week Instructions to follow-up provider: follow up hospitalization, consider podiatry consult Discharge Procedure Orders BUN/Creatinine ([facility]) Standing Status: Future Standing Exp. Date: 02/13/26 Potassium, Serum Standing Status: Future Standing Exp. Date: 03/15/25 Discharge Instructions We would like a lab checked the week of February 24, these can be done with your primary clinic, or [facility] lab (creatinine and potassium), results should be faxed to [facility] at [phone]. Dressing Change Twice daily dressing changes to right hand: Cover wound with non-stick (vaseline) gauze, wrap with roll gauze and NARCISA bandage. Ok to wash hand with soap and water. Follow Up with External Provider Referral Priority: Routine Referred to Provider: TAYLOR GUTIERREZ Number of Visits Requested: 1 Follow Up with External Provider Referral Priority: Routine Referral Location: [facility] Requested Specialty: Gastroenterology Number of [...] completing the discharge summary. Molly Epps PA-C [facility] Medicine Available on Ulmart or Kahub [phone] Cosigned by Michelle Pickering MD at 02/17/2025 11:15 AM CDT documented in this encounter Discharge Instructions * Attachments The following attachments cannot be sent through Care Everywhere. * Diet for Stomach Ulcers and Gastritis (AfterCare(R) Instructions(ER/ED)) (Romanian) * Soft Diet (Discharge Care) (Romanian) documented in this encounter Medications at Time [...] 02/16/2025 4:04 PM CDT Hannah Loo 1980 [id number] P: Discharge A: Discharged via wheelchair to home at 1600 escorted by skilled nursing facility counselor I: Discharge information and arrangements included: review [...] Weight: 53.6 kg (118 lb 2.7 oz) [place] body weight: 47.8 kg (105 lb 6.1 [...] with questions. Keila Beckman PharmD, BCPS Phone: [phone] * Molly Epps PA-C - 02/16/2025 8:58 [...] middle finger, L middle finger Transferred from [place]. On arrival vital signs with borderline tachycardia [...] protocol ?CAD EKG w poss prev septal IN of indeterminate age. -- outpt stress test [...] mg, 300 mg, oral, TID, Henna Paniagua, CLAIMS COLLECTOR,LIFE SKILLS CONSULTANT, 300 mg at 02/15/252135 [Transfer Hold] glucagon, human recombinant (Glucagen) injection (conc: 1 mg/mL) 1 mg, 1 mg, IntraMUSCULAR, Q 15 MINS PRN, Molly Epps PA-C [Transfer Hold] guaiFENesin (ROBITUSSIN) syrup 100 mg, 100 mg, oral, Q4H PRN, Danielle Carrero DO, 100 mg at 02/16/25 0428 [Transfer Hold] HYDROmorphone (Dilaudid) syringe 0.5-1 mg, 0.5-1 mg, Intravenous, Q4H PRN, Henna Paniagua, CLAIMS COLLECTOR, LIFE SKILLS CONSULTANT, 0.5 mg at 02/16/25 0326 [Transfer Hold] HYDROmorphone (DILAUDID) tablet 2-4 mg, 2-4 mg, oral, Q4H PRN, Henna Paniagua, CLAIMS COLLECTOR, LIFE SKILLS CONSULTANT, 4 mg at 02/16/25 0042 [Transfer Hold] [...] Taylor Gutierrez MD, 40 mg at 02/15/25 193 piperacillin-tazobactam (ZOSYN) 3.375 g in sodium chloride [...] 5-10 mg, Intravenous, Q6H PRN, Lanie Sotelo, DNP,CLAIMS COLLECTOR, 10 mg at 02/16/25 0439 [Transfer Hold] [...] , Intravenous, CONTINUOUS PRN, Pamela Bass APRN, MANAGER SEMICONDUCTOR, [employer] at 02/16/25 0850 lidocaine 2% injection (conc: 20 mg/mL), , Intravenous, PRN, Pamela Bass, CLAIMS COLLECTOR, MANAGER SEMICONDUCTOR, 100 mg at 02/16/25 0853 propofol 10 mg/mL (DIPRIVAN) IV injection-BOLUS, , Intravenous, PRN, Pamela Bass, CLAIMS COLLECTOR, MANAGER SEMICONDUCTOR, 150 mg at 02/16/25 0853 succinylcholine chloride (ANECTINE) injection, , Intravenous, PRN, Pamela Bass, CLAIMS COLLECTOR, MANAGER SEMICONDUCTOR, 100 mg at 02/16/25 0853 Results for [...] care with Dr. Pickering. Molly Epps PA-C, [facility] Medicine Available on Ulmart or Kahub [phone] * Patricia Herring RN - 02/16/2025 5:28 [...] PIV x2 D- Discharge: TBD * Rubia Velásquez, SINGH - 02/15/2025 8:36 PM CDT Med-Surg Care [...] BM this shift. G- Glycemic Control: Accuchecks [id number] for poor intake and now NPO. T- Treatment: pain control, wound care, K/Mg protocol, plastics/ID following, IV abx I- Invasive Devices: PIV x2 D- Discharge: TBD * Subject, Mila SINGH Guillermo - 02/15/2025 2:30 PM CDT Med-Surg Care [...] Weight: 53.6 kg (118 lb 2.7 oz) [place] body weight: 47.8 kg (105 lb 6.1 [...] 7 0.80 66 1250 mg q24h 06 MI'ed and restarted 02/14 8 0.65 81 1250 [...] follow. Please call with questions. Keila Beckman, [place], BCPS Phone: [phone] * Molly Epps PA-C - 02/15/2025 8:33 [...] middle finger, L middle finger Transferred from [place]. On arrival vital signs with borderline tachycardia [...] protocol ?CAD EKG w poss prev septal IN of indeterminate age. -- outpt stress test [...] 5-10 mg, Intravenous, Q6H PRN, Lanie Sotelo, DNP,CLAIMS COLLECTOR, 5 mg at 02/14/251954 saline with benzyl [...] REPORT SIGNED BY MD Molly Rhodes PA-C, [facility] Medicine Available on Ulmart or Kahub [phone] * Michael Bishop RN - 02/15/2025 6:10 [...] increase to 125 mL/hr. Danielle Carrero DO [facility] Medicine Update: Bg 61 overnight. 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 Other Pertinent Factors: NA Anthropometric/Physical: Height: 5' [...] 300 mg oral TID Henna Paniagua APRN, LIFE SKILLS CONSULTANT 300 mg at 02/14/25 1406 glucagon, human recombinant (Glucagen) injection (conc: 1 mg/mL) 1 mg 1 mg IntraMUSCULAR Q 15 MINS PRN Molly Epps PA-C guaiFENesin (ROBITUSSIN) syrup 100 mg 100 mg oral Q4H PRN Danielle Carrero DO 100 mg at 02/14/25 0417 HYDROmorphone (Dilaudid) syringe 0.5-1 mg 0.5-1 mg Intravenous Q4H PRN Henna Paniagua CLAIMS COLLECTOR, LIFE SKILLS CONSULTANT HYDROmorphone (DILAUDID) tablet 2-4 mg 2-4 mg oral Q4H PRN Henna Paniagua APRN LIFE SKILLS CONSULTANT 4 mg at 02/14/25 1618 hydrOXYzine pamoate [...] 5-10 mg Intravenous Q6H PRN Lanie Sotelo, DNP,CLAIMS COLLECTOR saline with benzyl alcohol injection 0.1-0.3 mL [...] nutrition history available through EMR review Active aNdia Martinez RD * Maria Guadalupe Cagle RN [...] - 02/14/2025 1:51 PM CDT New Referral [facility] ([facility]) received referral for possible home IV [...] further information/teaching as needed. Tyesha Morales RN [facility] Clinical Liaison * Conrad Lucio [...] Lucio MD Infectious diseases * Lanie Sotelo, PRASANNA,CLAIMS COLLECTOR - 02/14/2025 10:01 AM CDT PLASTIC SURGERY [...] middle finger, L middle finger Transferred from [place]. On arrival vital signs with borderline tachycardia [...] and was supposed to have EGD at [facility] but wasn't able to advance scope (?stricture, [...] protocol ?CAD EKG w poss prev septal IN of indeterminate age. -- outpt stress test [...] mg, Intravenous, Q4H PRN, Henna Paniagua APRN, LIFE SKILLS CONSULTANT HYDROmorphone (DILAUDID) tablet 2-4 mg, 2-4 mg, oral, Q4H PRN, Henna Paniagua APRN, CNP, 4 mg at 02/14/25 0521 hydrOXYzine pamoate [...] mg, 500 mg, oral, QID, Henna Paniagua, CLAIMS COLLECTOR, LIFE SKILLS CONSULTANT, 500 mg at 02/13/252113 [Held by provider] metroNIDAZOLE (FLAGYL) tablet 500 mg, 500 mg, oral, Q8H, Loly Castaneda PA-C,500 mg at 02/13/252113 nicotine (NICOTROL) 7 mg/24 hr patch 7 mg, 1 patch, Transdermal, DAILY, Carlene Rosen PA-C, 7 mg at 02/13/25 08 ondansetron (Zofran) injection 4-8 mg, 4-8 mg, [...] 5-10 mg, Intravenous, Q6H PRN, Lanie Sotelo, PRASANNA,CLAIMS COLLECTOR saline with benzyl alcohol injection 0.1-0.3 mL, [...] care with Dr. Pickering. Molly Epps PA-C, [facility] Medicine Available on Ulmart or Kahub [phone] * Danielle Carrero DO - 02/13/2025 11:21 [...] with them in AM. Danielle Carrero DO [facility] Medicine * Rubia Velásquez, SINGH - 02/13/2025 11:20 PM CDT Med-Surg Care [...] CDT HOSPITAL ID FOLLOW-UP NOTE Discussed with CAR TOP BOLTER: Wet gangrene, and osteomyelitis of Rt index [...] Unknown) SpO2 96% No BMI 22.33 kg/m?? Temp(24hrs), Av.1 ??F (36.7 ??C), Min:97.9 ??F (36.6 [...] race. 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 OBJECTIVE Temp (24hrs), Av.2 ??F (36.8 ??C), [...] Sotelo APRN, PRASANNA * Henna Paniagua APRN, LIFE SKILLS CONSULTANT - 02/13/2025 8:05 AM CDT Images from [...] acute distress, resting comfortably. HEENT: Normocephalic, atraumatic. [place] (hears better w low pitch) RESPIRATORY: Lungs [...] Results Component Value Date EKG 02/08/2025 Comment: [facility] Test Date: 2025-02-08 Pat Name: HANNAH LOO Department: A7 Room: A7 Gender: F Retail Analytics Manager: DWIGHT : 1980 Requested By: YANY INGRAM MD Order Number: [id number] Reading MD: YANY INGRAM MD Measurements Intervals Frost Rate: 95 P: 74 NM: 140 QRS: [...] [facility], who recommended transfer to [facility] for hand specialist evaluation. Patient was [...] and was supposed to have EGD at [facility] but wasn't able to advance scope (?stricture, [...] protocol ?CAD EKG w poss prev septal IN of indeterminate age. -outpt stress test CODE [...] visit was 50 minutes and included: Direct khmv-xr-itxr time, Review of records, Coordination of care, and Documentation of visit, adjusted pain regimen, spoke with family via phone. Henna Paniagua DNP, CLAIMS COLLECTOR, LIFE SKILLS CONSULTANT, [facility] Medicine * Paula Vegas RN - [...] Progression Note Type: Shift to shift summary [id number] Length of stay: 4 days Code Status: [...] comfort Outcome: Ongoing * Henna Paniagua APRN, LIFE SKILLS CONSULTANT - 02/12/2025 8:30 AM CDT Images from [...] acute distress, resting comfortably. HEENT: Normocephalic, atraumatic. [place] (hears better w low pitch) RESPIRATORY: Lungs [...] Results Component Value Date EKG 02/08/2025 Comment: [facility] Test Date: 2025-02-08 Pat Name: HANNAH LOO Department: A7 Room: A783 Gender: F Retail Analytics Manager: DWIGHT : 1980 Requested By: YANY INGRAM MD Order Number: [id number] Reading MD: YANY INGRAM MD Measurements Intervals Frost Rate: 95 P: 74 NM: 140 QRS: [...] [facility], who recommended transfer to [facility] for hand specialist evaluation. Patient was [...] and was supposed to have EGD at [facility] but wasn't able to advance scope (?stricture, [...] protocol ?CAD EKG w poss prev septal IN of indeterminate age. -outpt stress test CODE [...] daughterDaniela via phone Case discussed with Dr. Ji Wound: Skin Condition/Wound Non-Pressure Leather[place];Flaky Right;Lower Foot [...] visit was 35 minutes and included: Direct glwv-gp-wkcv time, Review of records, Coordination of care, and Documentation of visit, discussed with Plastic surgery GREGG and spoke with family via phone. Henna Paniagua DNP, CLAIMS COLLECTOR, LIFE SKILLS CONSULTANT, AGACNP-[facility] * Lanie Sotelo, PRASANNA,CLAIMS COLLECTOR - 02/12/2025 7:12 AM CDT PLASTIC SURGERY [...] recommendations -discussed with bedside RN, ID and [facility] med ERP PROJECT MANAGER Lanie Sotelo APRN, PRASANNA * Louann Hadley RN - 02/12/2025 [...] Progression Note Type: Shift to shift summary [id number] Length of stay: 3 days Code Status: [...] Light on Outside Patient Room Fall Risk fellmongery worker Door (NMR) Mobility Safety Interventions: Standard [...] RN receiving care * Henna Paniagua APRN, LIFE SKILLS CONSULTANT - 2025 8:54 AM CDT Images from [...] acute distress, resting comfortably. HEENT: Normocephalic, atraumatic. [place] (hears better w low pitch) RESPIRATORY: Lungs [...] Results Component Value Date EKG 02/08/2025 Comment: [facility] Test Date: 2025-02-08 Pat Name: HANNAH LOO Department: A7 Room: [facility] Gender: F Retail Analytics Manager: DWIGHT : 1980 Requested By: YANY INGRAM MD Order Number: [id number] Reading MD: YANY INGRAM MD Measurements Intervals Frost Rate: 95 P: 74 NM: 140 QRS: [...] [facility], who recommended transfer to [facility] for hand specialist evaluation. Patient was [...] and was supposed to have EGD at [facility] but wasn't able to advance scope (?stricture, [...] protocol ?CAD EKG w poss prev septal IN of indeterminate age. -outpt stress test CODE [...] visit was 35 minutes and included: Direct iqoi-ho-tsdk time, Review of records, Coordination of care, and Documentation of visit. Henna Paniagua DNP, CLAIMS COLLECTOR, LIFE SKILLS CONSULTANT, [facility] Medicine * Louann Hadley RN - 2025 [...] Progression Note Type: Shift to shift summary [id number] Length of stay: 2 days Code Status: [...] Light on Outside Patient Room Fall Risk fellmongery worker Door (NMR) Mobility Safety Interventions: Standard [...] acute distress, resting comfortably. HEENT: Normocephalic, atraumatic. [place] (hears better w low pitch) RESPIRATORY: Lungs [...] Results Component Value Date EKG 02/08/2025 Comment: [facility] Test Date: 2025-02-08 Pat Name: HANNAH LOO Department: Room: A783 Gender: F Retail Analytics Manager: DWIGHT : 1980 Requested By: YANY INGRAM MD Order Number: [id number] Reading MD: YANY INGRAM MD Measurements Intervals Frost Rate: 95 P: 74 NM: 140 QRS: [...] [facility], who recommended transfer to [facility] for hand specialist evaluation. Patient was [...] and was supposed to have EGD at [facility] but wasn't able to advance scope (?stricture, [...] protocol ?CAD EKG w poss prev septal IN of indeterminate age. -outpt stress test CODE [...] index finger Carlene Rosen (previously [facility] Medicine Available through Kahub 8:00am-6:00pm * Katheryn Mai PT - 02/10/2025 9:55 AM CDT Physical Therapy Attempted PT evaluation this AM however patient declined d/t not feeling well and needing to have emesis. Road Grader Operator provided emesis bucket per request and updated RN. PT to re-attempt tomorrow as schedule allows. * Lanie Sotelo DNP,CLAIMS COLLECTOR - 02/10/2025 7:33 AM CDT PLASTIC SURGERY [...] regular diet Ulcer prophylaxis: protonix and pepcid (TAR DISTRIBUTOR OPERATOR meds) DVT prophylaxis: mechanical, mobilize Mobility issues: [...] Progression Note Type: Shift to shift summary [id number] Length of stay: 2 days Code Status: [...] am - 11:00 pm please re-consult through [employer]. After hours orfor urgent requests, page the on-call sharepoint trainer. Rev. Haily Noel MA Cnc Maintenance Technician 02/09/2025 * Lynnette Donald RN - 02/09/2025 [...] Results Component Value Date EKG 02/08/2025 Comment: [facility] Test Date: 2025-02-08 Pat Name: HANNAH LOO Department: A7 Room: A783 Gender: F Retail Analytics Manager: SALMAMARCELOMARTHA : 1980 Requested By: YANY INGRAM MD Order Number: [id number] Reading MD: YANY INGRAM MD Measurements Intervals Frost Rate: 95 P: 74 NM: 140 QRS: [...] [facility], who recommended transfer to [facility] for hand specialist evaluation. Patient was [...] protocol ?CAD EKG w poss prev septal IN of indeterminate age. -outpt stress test CODE [...] Location: Hand Carlene Rosen (previously [facility] Medicine Available through [employer] 8:00am-6:00pm * Mercedez Hui RN - 02/09/2025 6:14 AM CDT Med-Surg Care Progression Note Type: Shift to shift summary [id number] Length of stay: 1 days Code Status: [...] acute distress, resting comfortably. HEENT: Normocephalic, atraumatic. [place] RESPIRATORY: Lungs clear to auscultation bilaterally. Symmetrical [...] Results Component Value Date EKG 02/08/2025 Comment: [facility] Test Date: 2025-02-08 Pat Name: HANNAH LOO Department: A7 Room: A783 Gender: F Retail Analytics Manager: DWIGHT : 1980 Requested By: YANY INGRAM MD Order Number: [id number] Reading MD: YANY INGRAM MD Measurements Intervals Frost Rate: 95 P: 74 NM: 140 QRS: [...] [facility], who recommended transfer to [facility] for hand specialist evaluation. Patient was [...] protocol ?CAD EKG w poss prev septal IN of indeterminate age. -outpt stress test CODE [...] Location: Hand Carlene Rosen (previously [facility] Medicine Available through [employer] 8:00am-6:00pm * Paula Vegas RN - 02/08/2025 [...] to call for help, name of assigned human services care specialist, How to Call a Response [...] [facility], who recommended transfer to [facility] for hand specialist evaluation. Patient was [...] [facility], who recommended transfer to [facility] for hand specialist evaluation. Patient was [...] for possible osteomyelitis. On arrival to [facility] afebrile, vitally stable. Wbc 15.5, CRP 8.2. [...] program. Pt unwilling to perform though requested public relations writer to go over exercises with her and pt family in room.Reviewed supine, seated, and standing HEP with recommendations of sets/ reps. Encouraged outpatientPT follow up if pt needs more specialized program. [facility] AM-PAC 6-Clicks Turning over in bed (including [...] - GASTROENTEROLOGY Patient Name: Hannah Loo Address: [address] [place], [place] [id number] Age:45 y.o. Sex: female Admission Date/Time: 02/08/2025 12:26 AM Requesting Physician: [facility] Attending Physician: Michelle Pickering MD I was [...] [facility], who recommended transfer to [facility] for hand specialist evaluation. Patient was [...] history. Of note she was hospitalized in [facility] recently and EGD was attempted but she [...] 300 mg, oral, TID, Henna Paniagua APRN, LIFE SKILLS CONSULTANT, 300 mg at 02/14/25 2220 glucagon, human recombinant (Glucagen) injection (conc: 1 mg/mL) 1 mg, 1 mg, IntraMUSCULAR, Q 15 MINS PRN, Molly Epps PA-C guaiFENesin (ROBITUSSIN) syrup 100 mg, 100 mg, oral, Q4H PRN, Danielle Carrero DO, 100 mg at 02/14/25 0417 HYDROmorphone (Dilaudid) syringe 0.5-1 mg, 0.5-1 mg, Intravenous, Q4H PRN, Henna Paniagua APRN, LIFE SKILLS CONSULTANT, 0.5 mg at 02/15/25 1150 HYDROmorphone (DILAUDID) tablet 2-4 mg, 2-4 mg, oral, Q4H PRN, Henna Paniagua APRN, LIFE SKILLS CONSULTANT, 4 mg at 02/15/25 0046 hydrOXYzine pamoate [...] 5-10 mg, Intravenous, Q6H PRN, Lanie Sotelo, PRASANNA,CLAIMS COLLECTOR, 10 mg at 02/15/25 0920 saline with [...] Consult, 1 Consult, N/A, MATT, Danielle Carrero, ALLERGIES/SENSITIVITIES No Known Allergies FAMILY [...] 60 - 100 mg/dL EGD December 2024 ([facility]) - procedure aborted at 15cm, esophageal stenosis suspected CT abd/pelvis December 2024 ([facility]) - no acute abnormalities Abdominal pain Vomiting [...] pt declines D/w SAMREEN Stiles-C ADDENDUM TO [facility] GI CONSULT SERVICE NOTE I, Chava [...] Weight: 53.6 kg (118 lb 2.7 oz) [place] body weight: 47.8 kg (105 lb 6.1 [...] follow. Please call with questions. Phone #: [phone] * Luis Guzman, Pharm D - 02/13/2025 [...] Weight: 53.6 kg (118 lb 2.7 oz) [place] body weight: 47.8 kg (105 lb 6.1 [...] follow. Please call with questions. Phone #: [phone] * Carrington Erickson (February), Pharm D - [...] Weight: 53.6 kg (118 lb 2.7 oz) [place] body weight: 47.8 kg (105 lb 6.1 [...] follow. Please call with questions. Phone #: [phone] * Conrad Lucio MD - 02/12/2025 12:21 [...] disease, smoker is transferred from [facility] for right index finger gangrene [...] mg 200 mg oral TID Lanie Sotelo, PRASANNA,CLAIMS COLLECTOR 200 mg at 742 HYDROmorphone (Dilaudid) syringe [...] packet 17 g 17 g oral DAILY Rosen, Carlene R, PA-C POTASSIUM REPLACEMENT INTRAVENOUS - NOT FOR DOCUMENTATION PURPOSES Intravenous PER PROTOCOL Yany Ingram MD POTASSIUM REPLACEMENT ORAL - NOT FOR DOCUMENTATION PURPOSES oral PER PROTOCOL Yany Ingram MD prochlorperazine (COMPAZINE) injection 5-10 mg 5-10 mg Intravenous Q6H PRN Lanie Sotelo, DNP,CLAIMS COLLECTOR saline with benzyl alcohol injection 0.1-0.3 mL [...] from further stairs due to IV pole [facility] AM-PAC 6-Clicks Turning over in bed (including [...] of food, dycem, and built up foam zyglo technician handles. Pt completed bed mobility, transfers, and [...] without presence of gas. Transferred to [facility] for hand/plastics specialist. Found to have osteomyelitis [...] Patient is independent with: Feeding, Grooming, Bathing, Human Geography Faculty Member, Medication Management, Driving Patient needs assist with: [...] None AM-PAC Daily Activity Raw Score: 17 AM-[facility] Daily Activity CMS 0-100% Score: 50.11 AM-[facility] Daily Activity t-Scale Score: 37.26 The following [...] with eating, including dycem, built up foam carton forming machine helper, and rocker knife. FUNCTIONAL MOBILITY Bed Mobility [...] Weight: 53.6 kg (118 lb 2.7 oz) [place] body weight: 47.8 kg (105 lb 6.1 [...] follow. Please call with questions. Phone #: [phone] * Irma Zheng Pharm D - 2025 9:08 AM CDT [...] Weight: 53.6 kg (118 lb 2.7 oz) [place] body weight: 47.8 kg (105 lb 6.1 oz) Adjusted ideal body weight: 50.1 kg (110 lb 7.9 oz) Labs: Recent Labs 02/10/25 0729 02/11/25 0714 WBC 12.3* 9.0 CREATININE 0.82 -- PROCALCITON -- 4.22* Date Day Scr CrCL Dose/Freq Time Level Comments 02/07 1 1000 mg IV 2048* Given at OSH 02/08 2 0.28 >100 1000 mg q12h 08, 20 02/09 3 0.5 >100 1000 [...] ongoing therapy is anticipated. Return to OR [facility] 02/11 for repeat I & D [...] follow. Please call with questions. Phone #: [phone] * Carrington Erickson (February), Pharm D - [...] Weight: 53.6 kg (118 lb 2.7 oz) [place] body weight: 47.8 kg (105 lb 6.1 [...] ongoing therapy is anticipated. Return to OR Tu 02/11 for repeat I & D and [...] follow. Please call with questions. Phone #: [phone] * Jeni Nina, Pharm D - 02/09/2025 [...] Weight: 53.6 kg (118 lb 2.7 oz) [place] body weight: 47.8 kg (105 lb 6.1 [...] completed 02/10/25 Discharge Recommendation: N/A Jeni Waite, AngeliD, [facility] Pharmacy will continue to follow. Please call with questions. Phone #: [phone] * Taylor Gutierrez MD - 02/08/2025 1:14 [...] Weight: 53.6 kg (118 lb 2.7 oz) [place] body weight: 47.8 kg (105 lb 6.1 oz) Adjusted ideal body weight: 50.1 kg (110 lb 7.9 oz) Labs: Recent Labs 02/08/25 0145 WBC 15.5* CREATININE 0.28* Date Day Scr CrCL Dose/Freq Time Level Comments 02/07 1 1000 mg IV 2048* Given at OSH 02/08 2 0.28 >100 1000 mg Q12H , ASSESSMENT/PLAN 44 yo female admitted for osteomyelitis. [...] completed 02/10/25 Discharge Recommendation: N/A Jeni Waite, AngeliD, [facility] Pharmacy will continue to follow. Please call with questions. Phone #: [phone] * Taylor Gutierrez MD - 02/08/2025 6:07 [...] consult to follow. Taylor Gutierrez MD * Ronenll Estevez, Pharm D - 02/08/2025 3:15 AM [...] Weight: 53.6 kg (118 lb 2.7 oz) [place] body weight: 47.8 kg (105 lb 6.1 [...] follow. Please call with questions. Phone #: [phone] documented in this encounter Nursing Notes * [...] None AM-PAC Daily Activity Raw Score: 20 AM-[facility] Daily Activity CMS 0-100% Score: 38.32 AM-[facility] Daily Activity t-Scale Score: 42.03 [...] Hospital ) F/O Payor/Plan Precert # MEDICAID/MEDICAID [place] Subscriber Subscriber # Hannah Loo [id number] Address Phone [address] [address] [place] [address] Care Coordination Plan & Communication with Patient/Family: Moving independent in the room [facility] (intake # [phone]; nurses # [phone]), to check insurance coverage for home IV antibiotics, if ordered. Plan: Overall discharge plan has yet to be determined pending hospital course and progression with therapies. Nurse School Plant Consultant will continue to follow to assist with discharge needs. - [facility] (intake # [phone]; nurses # [phone]), to check insurance coverage for home IV antibiotics, if ordered. Raudel Kamara RN-Case Management. # [phone] * Mercedez Hui RN - 02/10/2025 3:09 [...] Support Systems: Family members Fely Barnes (ROCK) [phone] (M) Brandin Loo (SON) [phone] (M) Primary Decision Maker: Patient DME Prior [...] daughter shared that she currently lives in [place] but pt has a lot of people looking out for her. Pt's PCP is Dr. Radha Anthony at [facility]. She does not anticipate any d/c needs. SW will follow in the event any needs arise. Care management will continue to follow. CHUCK Groves, [facility] Pager: [phone] * Bárbara Segundo RN - 02/09/2025 12:32 [...] of bilateral hands SURGEON: Taylor Gutierrez MD MINISTER OF RELIGION: Pippa Putnam RN-CPSN DATE OF SERVICE: 2025 [...] saline and hydrogen peroxide. 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 XR suspicious for osteomyelitis, no visible gas. Given Zosyn. Will also receive vancomycin. The case was discussedwith orthopedic surgery and vascular surgery at [facility]. They recommended transfer to [facility] for hand specialist evaluation. K 2.7 -- being replaced in the ED. Lactic acid normal, renal function normal. Anticipated status: Inpatient. Full History/Physical and admission orders to be completed upon arrival Please notify bed placement upon arrival at [phone] Admitting MD will be assigned after arrival Adria Hare MD [facility] Medicine documented in this encounter Miscellaneous Notes * Med Reconciliation - Jeni Nina, Pharm D - 02/08/2025 11:28 AM CDT PHARMACY MEDICATION RECONCILIATION NOTE MEDICATION RECONCILIATION on admission by pharmacy has been completed. Prior to admission medications were reviewed with patient The TAR DISTRIBUTOR OPERATOR medication list has been updated and reflected in the chart below. Please use the TAR DISTRIBUTOR OPERATOR medication section for ordering home doses during [...] in the care of this patient. Phone #:[phone] or [phone] Time spent reconciling meds:15 min Location: face [...] - 2.6 mg/dL 02/16/2025 3:05 PM CDT [facility] Blood Venipuncture / Unknown 02/16/2025 2:35 PM CDT 02/16/2025 2:38 PM CDT Molly Epps PA-C CHEMISTRY ORDERABLE Final Result [facility] [address] [place] [id number] * Potassium (02/16/2025 2:35 PM CDT) Only the most recent of6 resultswithin the time period is included. Potassium 4.0 3.4 - 5.1 mmol/L 02/16/2025 2:59 PM CDT [facility] Blood Venipuncture / Unknown 02/16/2025 2:35 PM CDT 02/16/2025 2:38 PM CDT us Molly Epps PA-C CHEMISTRY ORDERABLE Final Result Performing Organization Address [facility] Co de Phone Number [facility] [address] [place] [address] * (ABNORMAL) POCT Glucose Meter (02/16/2025 1:58 PM CDT) Only the most recent of13 resultswithin the time period is included. GLUCOSE WB METER 156(H) 60 - 100 mg/dL 02/16/2025 2:16 PM CDT [facility] Blood 02/16/2025 1:58 PM CDT 02/16/2025 2:16 PM CDT Michelle Pickering MD LAB POINT OF CARE TEST RESULTS F inal Result Performing Organization Address [facility] de Phone Number [facility] [address] [place] [place] [address] * Surgical Pathology (02/16/2025 9:21 AM CDT) Only the most recent of2 resultswithin the time period is included. Case Report Surgical Pathology Case: [id number] Authorizing Provider: Chava Erickson MD Collected: 02/16/2025 09:21 AM Ordering Location: [facility] Received: 02/18/2025 09:11 AM Hospital Advanced Procedure Unit Pathologist: Christian Marquis MD Specimens: A) - Stomach (Specify) B) - Esophagus 02/19/2025 3:31 PM CDT [facility] Final Diagnosis A. Stomach, biopsy: Mild chronic inactive gastritis. Helicobacter pylori-like organisms are not identified on H&E stain. Negative for goblet cell metaplasia, dysplasia and malignancy. B. Esophagus, biopsy: Reactive squamous mucosa with fibrinopurulent exudate (ulcerative esophagitis). Viral cytopathic effect is not identified. Fungal organisms are identified. Negative for dysplasia, and malignancy. 02/19/2025 3:31 PM CDT [facility] at 1531 CDT Comment The fungal organisms are composed of yeast forms, suggestive of marta species. 02/19/2025 3:31 PM CDT [facility] Gross Description A. Stomach biopsy: Six up to 0.3 cm. IT-1. B. Esophagus biopsy: Four up to 0.3 cm. IT-1. 02/19/2025 3:31 PM CDT [facility] Microscopic Description The final diagnosis is based on the microscopic examination of all the slides. Block B is stained with PAS for fungal organisms. Fungal organisms are identified on the edge of the fibrinopurulent exudate and the surface of the squamous mucosa. 02/19/2025 3:31 PM CDT [facility] Tissue STOMACH STRUCTURE / Unknown 02/16/2025 9:21 AM CDT 02/18/2025 9:11 AM CDT Comment:Pre-op diagnosis: Nausea and vomiting, unspecified vomiting type [R11.2] Dysphagia, unspecified type [R13.10] Tissue specimen (specimen) ESOPHAGEAL STRUCTURE / Unknown 02/16/2025 9:23 AM CDT 02/18/2025 9:11 AM CDT Comment:Pre-op diagnosis: Nausea and vomiting, unspecified vomiting type [R11.2] Dysphagia, unspecified type [R13.10] Chava Erickson MD PATHOLOGY/CYTOLOGY ORDERA BLE Final Result Performing Organization Address [facility] Phone Number [facility] [address] [place] [address] * Endoscopy (02/16/2025 7:57 AM CDT) 02/16/2025 7:57 AM CDT Narrative TEST - 02/16/2025 10:[address] [facility] Patient Name: Hannah Loo Procedure [...] sign off Procedure Code(s): --- Professional --- 44897, Esophagogastroduodenoscopy, flexible, transoral; with biopsy, single or multiple Diagnosis Code(s): --- Professional --- K20.90, Esophagitis, unspecified without bleeding K31.89, Other diseases of stomach and duodenum K26.9, Duodenal ulcer, unspecified as acute or chronic, without hemorrhage or perforation CPT copyright 2021 [employer]. All rights reserved. The codes documented in this report are preliminary and upon sales representative printing review may be revised to meet current compliance requirements. MD Chava Hua MD 02/16/2025 10:00:36 AM This report has been signed electronically.Chava Ericksno MD Number of Addenda: 0 Note Initiated On: 02/16/2025 7:57 AM [address] [id number] Procedure Note Chava Erickson MD - 02/16/2025 [facility] Patient Name: Hannah Loo Procedure [...] sign off Procedure Code(s): --- Professional --- 37512, Esophagogastroduodenoscopy, flexible, transoral; with biopsy, single or multiple Diagnosis Code(s): --- Professional --- K20.90, Esophagitis, unspecified without bleeding K31.89, Other diseases of stomach and duodenum K26.9, Duodenal ulcer, unspecified as acute or chronic, without hemorrhage or perforation CPT copyright 2021 [employer]. All rights reserved. The codes documented in this report are preliminary and upon sales representative printing reviewmay be revised to meet current compliance requirements. MD Chava Hua MD 02/16/2025 10:00:36 AM This report has been signed electronically.Chava Erickson MD Number of Addenda: 0 Note Initiated On: 02/16/2025 7:57 AM [address] [place] [address] us Chava Erickson MD PROCEDURE ORDERABLE Final Result TEST * (ABNORMAL) Basic Metabolic Profile Magnesium (02/16/2025 7:[address] [facility]) Only the most recent of9 resultswithin the time period is included. Sodium 141 136 - 145 mmol/L 02/16/2025 7:56 AM [facility] Potassium 3.1(L) 3.4 - 5.1 mmol/L 02/16/2025 7:56 AM [facility] Chloride 109(H) 98 - 108 mmol/L 02/16/2025 7:56 AM [facility] Carbon Dioxide 30 20 - 31 mmol/L 02/16/2025 7:56 AM [facility] BUN (Urea Nitro) <5(L) 9 - 23 mg/dL 02/16/2025 7:56 AM [facility] Creatinine 0.53(L) 0.55 - 1.02 mg/dL 02/16/2025 7:56 AM [facility] Est GFR (CKD-EPI) >60.00 >60.00 mL/min/1. 73m2 02/16/2025 7:56 AM [facility] Comment:Calculation based on the Chronic Kidney Disease Epidemiology Collaboration (CKD-EPI) equation refit without adjustment for race. Glucose 90 74 - 106 mg/dL 02/16/2025 7:56 AM [facility] Calcium, Serum 7.4(L) 8.7 - 10.4 mg/dL 02/16/2025 7:56 AM [facility] Anion Gap 2.0 0.0 - 15.0 mmol/L 02/16/2025 7:56 AM [facility] Magnesium 1.5(L) 1.6 - 2.6 mg/dL 02/16/2025 7:56 AM [facility] Blood Venipuncture / Unknown 02/16/2025 7:06 AM CDT 02/16/2025 7:28 AM CDT us Yany Ingram MD CHEMISTRY ORDERABLE Final Result [facility] [address] [place] [address] * (ABNORMAL) CBC (HGB,HCT,WBC,RBC,Platelet) (02/16/2025 7:06 AM CDT) Only the most recent of9 resultswithin the time period is included. WBC 5.4 4.3 - 10.8 K/uL 02/16/2025 7:36 AM [facility] RBC 2.14(L) 4.20 - 5.40 M/uL 02/16/2025 7:36 AM [facility] Hemoglobin 7.6(L) 12.0 - 16.0 gm/dL 02/16/2025 7:36 AM [facility] Hematocrit 24.2(L) 36.0 - 48.0 % 02/16/2025 7:36 AM [facility] MCV 113(H) 80 - 100 fL 02/16/2025 7:36 AM [facility] MCH 36(H) 27 - 33 pg 02/16/2025 7:36 AM [facility] MCHC 31(L) 33 - 36 gm/dL 02/16/2025 7:36 AM [facility] RDW 14.7(H) 11.5 - 14.5 % 02/16/2025 7:36 AM [facility] Platelet Count 219 150 - 400 K/UL 02/16/2025 7:36 AM [facility] MPV 9.9 6.5 - 12 fL 02/16/2025 7:36 AM CDT [facility] Blood Venipuncture / Unknown 02/16/2025 7:06 AM CDT 02/16/2025 7:29 AM CDT Yany Ingram MD HEMATOLOGY ORDERABLE Hailee merchant Result [facility] [address] [address] * XR ABDOMEN FLAT & UPRIGHT (02/15/2025 [...] - 53 U/L 02/15/2025 3:37 PM CDT [facility] Blood Venipuncture / Unknown 02/15/2025 7:41 AM CDT 02/15/2025 8:10 AM CDT us Molly Epps PA-C CHEMISTRY ORDERABLE Final Result [facility] [address] [place], [place] [id number] * (ABNORMAL) Liver Profile (02/15/2025 7:41 AM CDT) ALT 16 7 - 40 U/L 02/15/2025 9:53 AM T [facility] Alkaline Phosphatase 528(H) 46 - 116 U/L 02/15/2025 9:53 AM T [facility] AST (SGOT) 11(L) 13 - 40 U/L 02/15/2025 9:53 AM T [facility] Protein Total 4.8(L) 5.7 - 8.2 g/dL 02/15/2025 9:53 AM [facility] Albumin 1.5(L) 3.4 - 5.0 g/dL 02/15/2025 9:53 AM T [facility] Bilirubin-Direct <0.10 <0.40 mg/dL 02/15/2025 9:53 AM T [facility] Bilirubin-Total 0.20(L) 0.30 - 1.20 mg/dL 02/15/2025 9:53 AM T [facility] Blood Venipuncture / Unknown 02/15/2025 7:41 AM CDT 02/15/2025 8:10 AM CDT us Molly Epps PA-C CHEMISTRY ORDERABLE Final Result [facility] [address] * Vancomycin - Random (02/15/2025 7:41 AM CDT) Only the most recent of2 resultswithin the time period is included. Vancomycin Random 22.1 11.0 - 45.0 ug/mL 02/15/2025 9:29 AM CDT [facility] Blood Venipuncture / Unknown 02/15/2025 7:41 AM CDT 02/15/2025 8:10 AM CDT us Keila Beckman Pharm D CHEMISTRY ORDERABLE F inal Result Performing Organization Address City/[facility] Co de Phone Number [facility] [place] [address] * Extra Tube-EDTA (Lab Use Only) (02/14/2025 8:35 PM CDT) Only the most recent of2 resultswithin the time period is included. Blood 02/14/2025 8:35 PM CDT 02/14/2025 8:44 PM CDT us Moises Cm MD HEMATOLOGY ORDERABLE Final Result Performing Organization Address City/[facility] Co de Phone Number [facility] [address] * Blood Aerobic (1 Bottle) Culture (02/14/2025 2:14 AM CDT) Only the most recent of2 resultswithin the time period is included. Blood Culture (<5 Years Old/Short Draw) No growth 5 days. 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 Aureus (MRSA) detected by PCR.(A) No Methicillin Resistant Staph. Aureus (MRSA) detected by PCR. 02/14/2025 4:13 AM CDT [facility] Nasal NASAL STRUCTURE / Unknown 02/14/2025 1:13 AM CDT 02/14/2025 1:40 AM CDT us Danielle Carrero DO MICROBIOLOGY ORDERABLE Final Result Performing Organization Address [facility] Co de Phone Number [facility] [place] [place] [address] * Extra Tube PST (Lab Use Only) (02/14/2025 12:33 AM CDT) Blood 02/14/2025 12:3 3 AM CDT 02/14/2025 1:09 AM CDT us Michelle Pickering MD CHEMISTRY ORDERABLE Final Result Performing Organization Address [facility] Co de Phone Number [facility] [address] [place] [address] * XR CHEST AP PORT (02/13/2025 10:13 [...] 5 days. TONIO 02/16/2025 9:36 AM CDT [facility] Site-Microbiology STRUCTURE OF RIGHT INDEX FINGER / Unknown 2025 1:03 PM CDT Comment:Pre-op diagnosis: Gangrene, not elsewhere classified (HCC) [I96] Taylor Gutierrez MD MICROBIOLOGY ORDERABLE Final Result Performing Organization Address City/State/[facility] Co de Phone Number [facility] [address] [place] [address] * (ABNORMAL) Culture-Aerobic (2025 1:03 PM CDT) Only the most recent of3 resultswithin the time period is included. Aerobic Culture Few colonies of Methicillin resistant Staphylococcus aureus (MRSA)(A) TONIO 02/14/2025 6:56 AM CDT [facility] Aerobic Culture One colony of Escherichia coli(A) TONIO 02/14/2025 6:56 AM CDT [facility] Gram Stain Result No bacteria seen. 02/14/2025 6:56 AM CDT [facility] Gram Stain Result No WBC's seen / LPF 02/14/2025 6:56 AM CDT [facility] Site-Microbiology STRUCTURE OF RIGHT INDEX FINGER / [...] Taylor Gutierrez MD MICROBIOLOGY ORDERABLE Final Result [facility] [address] [place] [place] [address] * (ABNORMAL) Procalcitonin (2025 7:14 AM CDT) Only the most recent of2 resultswithin the time period is included. Procalcitonin 4.22(H) <=0.05 ng/mL 2025 8:03 AM CDT [facility] Blood Capillary / Unknown 2025 7:14 AM CDT 2025 7:22 AM CDT Narrative [facility] - 2025 8:03 AM CDT PROCALCITONIN REFERENCE [...] ORDERABLE Fi nal Result Performing Organization Address City/[facility]/ZIP Co de Phone Number [facility] [address] [place] [id number] * HCG Urine (02/08/2025 8:42 AM CDT) hCG Urine Negative Negative 02/08/2025 8:53 AM CDT [facility] Urine URINE SPECIMEN / Unknown 02/08/2025 8:42 AM CDT 02/08/2025 8:46 AM CDT Yany Ingram MD URINE ORDERABLE Final Res ult [facility] [address] [place] [address] * Electrocardiogram (02/08/2025 5:57 AM CDT) EKG HVI YENNI Comment: [facility] Test Date: 2025-02-08 Pat Name: HANANH LOO Department: A7 Room: A783 Gender: F Retail Analytics Manager: SALMAPEGOLLIE : 1980 Requested By: YANY INGRAM MD Order Number: [id number] Reading MD: Meagan Torres MD Measurements Intervals Frost Rate: 95 P: 74 NM: 140 QRS: [...] ORDERABLE Final Res ult Performing Organization Address [facility] de Phone Number [facility] YENNI [address] [facility] [place] [address] * (ABNORMAL) Creatinine eGFR (02/08/2025 5:24 AM CDT) Creatinine 0.31(L) 0.55 - 1.02 mg/dL 02/08/2025 7:25 AM CDT [facility] Est GFR (CKD-EPI) >60.00 >60.00 mL/min/1. 73m2 02/08/2025 7:25 AM CDT [facility] Comment:Calculation based on the Chronic Kidney Disease Epidemiology Collaboration (CKD-EPI) equation refit without adjustment for race. Blood Venipuncture / Unknown 02/08/2025 5:24 AM CDT 02/08/2025 5:58 AM CDT us Yany Ingram MD CHEMISTRY ORDERABLE Final Result Performing Organization Address City/[facility] Co de Phone Number [facility] [address] [place] [address] * ABORh Confirm (Lab Use Only) (02/08/2025 5:04 AM CDT) Group and Rh A Positive 02/08/2025 6:51 AM CDT [facility] Blood 02/08/2025 5:04 AM CDT 02/08/2025 5:45 AM CDT us Yany Ingram MD BLOOD BANK ORDERABLE Hailee l Result Performing Organization Address [facility] Co de Phone Number [facility] [address] [place] [phone] [facility] [address] [place] [address] * Lactic Acid (02/08/2025 1:48 AM CDT) Pathologist [facility] Lactic Acid 0.8 0.7 - 2.1 mmol/L 02/08/2025 1:49 AM CDT [facility] Blood 02/08/2025 1:48 AM CDT 02/08/2025 1:48 AM CDT us Yany Ingram MD CHEMISTRY ORDERABLE Final Result Performing Organization Address City/[facility] Co de Phone Number [facility] [address] [place] [address] * Type and Screen (02/08/2025 1:45 AM CDT) Group and Rh A Positive 02/08/2025 2:49 AM CDT [facility] Antibody Screen Negative 02/08/2025 2:49 AM CDT [facility] Blood 02/08/2025 1:45 AM CDT 02/08/2025 1:52 AM CDT us Yany Ingram MD BLOOD BANK ORDERABLE Edit ed Result - Final Performing Organization Address [facility] Co de Phone Number [facility] [address] [place] [address] [facility] [address] [place] [address] * (ABNORMAL) C-Reactive Protein (02/08/2025 1:45 AM CDT) C Reactive Protein 8.2(H) <=0.5 mg/dL 02/08/2025 2:25 AM CDT [facility] Blood 02/08/2025 1:45 AM CDT 02/08/2025 1:52 AM CDT us Yany Ingram MD IMMUNOLOGY ORDERABLE Hailee l Result Performing Organization Address [facility] de Phone Number [facility] [address] [place] [phone] * (ABNORMAL) Basic Metabolic Profile (02/08/2025 1:45 AM CDT) Pathologist [facility] Sodium 139 136 - 145 mmol/L 02/08/2025 2:25 AM [facility] Potassium 3.5 3.4 - 5.1 mmol/L 02/08/2025 2:25 AM [facility] Chloride 107 98 - 108 mmol/L 02/08/2025 2:25 AM T [facility] Carbon Dioxide 28 20 - 31 mmol/L 02/08/2025 2:25 AM [facility] BUN (Urea Nitro) 8(L) 9 - 23 mg/dL 02/08/2025 2:25 AM [facility] Creatinine 0.28(L) 0.55 - 1.02 mg/dL 02/08/2025 2:25 AM [facility] Est GFR (CKD-EPI) >60.00 >60.00 mL/min/1. 73m2 02/08/2025 2:25 AM T [facility] Comment:Calculation based on the Chronic Kidney Disease Epidemiology Collaboration (CKD-EPI) equation refit without adjustment for race. Glucose 77 74 - 106 mg/dL 02/08/2025 2:25 AM CDT [facility] Calcium, Serum 8.0(L) 8.7 - 10.4 mg/dL 02/08/2025 2:25 AM T [facility] Anion Gap 4.0 0.0 - 15.0 mmol/L 02/08/2025 2:25 AM [facility] Blood 02/08/2025 1:45 AM CDT 02/08/2025 1:52 AM CDT us Yany Ingram MD CHEMISTRY ORDERABLE Final Result [facility] [address] [place] [address] * (ABNORMAL) CBC / Diff (02/08/2025 1:45 AM CDT) WBC 15.5(H) 4.3 - 10.8 K/uL 02/08/2025 2:07 AM [facility] RBC 2.88(L) 4.20 - 5.40 M/uL 02/08/2025 2:07 AM [facility] Hemoglobin 10.1(L) 12.0 - 16.0 gm/dL 02/08/2025 2:07 AM [facility] Hematocrit 32.6(L) 36.0 - 48.0 % 02/08/2025 2:07 AM [facility] MCV 113(H) 80 - 100 fL 02/08/2025 2:07 AM [facility] MCH 35(H) 27 - 33 pg 02/08/2025 2:07 AM [facility] MCHC 31(L) 33 - 36 gm/dL 02/08/2025 2:07 AM [facility] RDW 15.3(H) 11.5 - 14.5 % 02/08/2025 2:07 AM CDT [facility] Platelet Count 370 150 - 400 K/UL 02/08/2025 2:07 AM [facility] MPV 8.9 6.5 - 12 fL 02/08/2025 2:07 AM [facility] PMN % 86.5 % 02/08/2025 2:07 AM [facility] IG % 0.8 <=1.0 % 02/08/2025 2:07 AM [facility] Lymphocyte % 7.8 % 02/08/2025 2:07 AM [facility] Monocyte % 4.1 % 02/08/2025 2:07 AM [facility] Eosinophil % 0.5 % 02/08/2025 2:07 AM [facility] Basophil % 0.3 % 02/08/2025 2:07 AM [facility] PMN Absolute 13.42(H) 1.80 - 7.80 K/uL 02/08/2025 2:07 AM [facility] Lymphocyte Absolute 1.21 1.00 - 4.00 K/uL 02/08/2025 2:07 AM [facility] Monocyte Absolute 0.64 0.00 - 1.00 K/uL 02/08/2025 2:07 AM [facility] Eosinophil Absolute 0.08 0.00 - 0.45 K/uL 02/08/2025 2:07 AM [facility] Basophil Absolute 0.04 0.00 - 0.20 K/uL 02/08/2025 2:07 AM [facility] Nucl RBC % 0.0 0.0 - 0.0 /100 WBC 02/08/2025 2:07 AM [facility] Nucl RBC Absolute 0.00 0.00 - 0.00 K/uL 02/08/2025 2:07 AM [facility] Blood 02/08/2025 1:45 AM CDT 02/08/2025 1:52 AM T us Yany Ingram MD HEMATOLOGY ORDERABLE [employer]ilee merchant Result [facility] [address] [id number] * XR OUTSIDE UPPER EXTREMITY STUDY (02/07/2025 12:00 AM CDT) Result [facility] Study Outside XRAY ORDERABLE Final Result documented [...] pneumonia) Pneumonia due to other gram-negative bacteria Nausea and vomiting, unspecified vomiting type Dysphagia, unspecified type documented in this encounter Admitting Diagnoses Diagnosis [...] NEEDED, Starting on 02/16/25 at 0947, Until [place] 02/16/25 at 2223, Pre-Op, Line Care acetaminophen [...] on Mon02/16/25 at 0947, Until Mon02/16/25 at 222, Pre-Op, hypoglycemia enoxaparin (LOVENOX) injection 40 mg [...] AM CDT 100 mg HYDROmorphone (Dilaudid) syringe 0.5-1 mg 0.5-1 [...] 02/08/25 at 0049, Until Mon02/16/25 at 2223, Local Anesthesia, IV start or restart MAGNESIUM REPLACEMENT INTRAVENOUS - NOT FOR DOCUMENTATION PURPOSES Intravenous, PER PROTOCOL, Starting on Mon02/08/25 at 0155, Until [place] 02/16/25 at 2223 methocarbamoL (ROBAXIN) tablet 500-1,000 mg 500-1,000 mg, oral, FOUR TIMES A DAY, First dose (after last modification) on Mon02/14/25 at 1800, Until Discontinued Given 02/16/2025 11:24 AM CDT 500 mg Given 02/15/2025 9:36 PM CDT 500 mg Given 02/15/2025 5:35 PM CDT 500 mg metoclopramide HCl (Reglan) injection 10 mg 10 mg, Intravenous, EVERY 6 HOURS NEEDED, Starting on [facility] 02/15/25 at 1046, Until Mon02/16/25 at 2223, Nausea/Vomiting, 3rd choice Given 02/15/2025 11:4 4 AM CDT 10 mg metroNIDAZOLE (FLAGYL) tablet 500 mg 500 mg, oral, EVERY 8 HOURS, First dose on Mon02/13/25 at 1430, Until Discontinued, For C. difficile, anaerobic bacteremia, parasitic, or [employer]SP[employer] EQUIPMENT [employer] infections utilize q8h frequency. For all other infections, utilize q12h frequency., On hold since Mon02/13/2025 at 2327 until manually unheldIndications:ORTHO, BONE AND BURNS PAIUTE JOINT INFECTIONS Given 02/13/2025 9:14 PM CDT 500 mg Given 02/13/2025 2:04 PM CDT 500 mg nicotine (NICOTROL) 7 mg/24 hr patch 7 mg 7 mg (1 patch), Transdermal, DAILY, First dose on [facility] 02/08/25 at 1315, Until Discontinued Patch Applied 02/16/2025 11:15 AM CDT 7 mg Right Shoulder Patch Applied 02/14/2025 8:46 AM CDT 7 mg Left Arm Patch Applied 02/13/2025 8:13 AM CDT 7 mg Right Arm ondansetron (Zofran) disintegrating tablet 4-8 mg 4-8 mg, oral, EVERY 8 HOURS NEEDED, Starting on [facility] 02/08/25 at 0050, Until Mon02/16/25 at 2223, nausea & vomiting, 1st choice [...] PROTOCOL, Starting on 02/08/25 at 0155, Until Mon02/16/25 at 2223, May request packets if patient [...] mL 0.1-0.3 mL, Intradermal, NEEDED, Starting on Mon02/08/25 at 0049, Until Mon02/16/25 at 2223, IV start or restart sulfamethoxazole [...] 1 DS tab. , On hold since [facility] 02/13/2025 at 2327 until manually unheldIndications:ORTHO, BONE AND BURNS PAIUTE JOINT INFECTIONS Given 02/13/2025 6:09 PM CDT 160 mg vancomycin (VANCOCIN) 1,000 mg in sodium chloride 0.9 % 250 mL IV piggyback 1,000 mg (rounded from 1,072 mg = 20 mg/kg 53.6 kg), at 250 mL/hr, Intravenous, EVERY 12 HOURS (NS), First dose (after last modification) on [facility] 02/15/25 at 1400, Until DiscontinuedIndications:PNEUMONIA , [...] 0800, Last dose on 02/22/25 at 2000 varenicline tartrate (Chantix;Apo-Varenicline) tablet 1 [...] Incoming Adt)1331 (Given - Provider: Mila De Leon, SINGH) saline FLUSH syringe 10 mL 10 mL, Intravenous, EVERY 8 HOURS, First dose on 02/16/25 at 1400, Until Discontinued, Pre-Op 1506 (Given - Provider: Mila De Leon, SINGH) acetaminophen (TYLENOL) tablet 1,000 mg 1,000 mg, [...] Mila De Leon RN - Reason: NPO)0824 (NOV Hold - [...] information. 1120 (Given - Provider: Mila De Leon, SINGH) famotidine (PEPCID) injection 20 mg (CANCELED) 20 [...] Until Discontinued 0644 (Given - Provider: Axel Torres RN)0800 (Canceled Entry - Provider: Axel Torres RN)1406 (Given - Provider: Maria Guadalupe Cagle RN)2220 (Given - Provider: Rubia Velásquez, RN) 0800 (Not Given - Provider: Mila Guillermo Subject, RN - Reason: Nauseated)1400 (Not Given - Provider: Mila Guillermo Subject, RN - Reason: Nauseated)2136 (Given - Provider: Rubia Velásquez, RN) 0800 (Not Given - Provider: Mila Guillermo Subject, RN - Reason: NPO)0824 (MAR Hold - Provider: Interface, Incoming Adt - Reason: Procedure)1053 (MAR Unhold - Provider: Interface, Incoming Adt)1325 (Given - Provider: Mila Guillermo Subject, RN) MAGNESIUM REPLACEMENT INTRAVENOUS - NOT FOR DOCUMENTATION PURPOSES Intravenous, PER PROTOCOL, Starting on 02/08/25 at 0155, Until 02/16/25 at 2223 0824 ([facility] Hold - Provider: Interface, Incoming Adt - Reason: Procedure)1053 ([facility] Unhold - Provider: Interface, Incoming Adt) [...] 1207 (New Bag - Provider: Maria Guadalupe Cagle RN) magnesium sulfate 2 gram / 50mL (4%) IV piggyback (PREMIX) 2 g (COMPLETED) 2 g, Intravenous, ONCE, 1 dose, On 02/16/25 at 0800, Administer over 2 Hours, 1 g magnesium replacement should be given over 1 hour (may give 2 g over 1 hour in ICU/ED setting). 4 grams should NOT be used for magnesium replacement. 0824 (MAR Hold - Provider: Interface, Incoming Adt - Reason: Procedure)1053 ([facility] Unhold - Provider: Interface, Incoming Adt)1117 (New Bag - Provider: Mila Guillermo Subject, RN)1117 (Auto Rate Verify - Provider: Mila Guillermo Subject, RN)1155 (Auto Rate Verify - Provider: Mila Guillermo Subject, RN)1249 (Stopped - Provider: Mila Guillermo Subject, RN) methocarbamoL (ROBAXIN) tablet 500 mg (CANCELED) [...] RN) 0953 (Not Given - Provider: Mila Guillermo Subject, RN - Reason: Nauseated)1200 (Not Given - Provider: Mila De Leon, RN - Reason: NPO - Comment: nausea/ emesis- made NPO)1735 (Given - Provider: Rubia Velásquez RN)2136 (Given - Provider: Rubia Velásquez RN) 0800 (Not Given - Provider: Mila De Leon, RN - Reason: NPO)0824 (NOV Hold - Provider: Interface, Incoming Adt - Reason: Procedure)1053 (NOV Unhold - Provider: Interface, Incoming Adt)1124 (Given - Provider: Mila De Leon, RN) metroNIDAZOLE (FLAGYL) tablet 500 mg 500 mg, oral, EVERY 8 HOURS, First dose on Mon02/13/25 at 1430, Until Discontinued, For C. difficile, anaerobic bacteremia, parasitic, or [employer]SP[employer]QUIP[employer] infections utilize q8h frequency. For all other [...] MD deferred)2223 (Unheld by provider - Provider: Ondischarge [...] Axel Torres RN)1403 (New Bag - Provider: MariaG uadalupe Cagle RN)2127 (New Bag - Provider: Rubia Velásquez [...] 1041 (New Bag - Provider: Mila De Leon RN)1136 (New Bag - Provider: Shashank Chen RN)1245 (New Bag - Provider: Mila De Leon RN)1351 (New Bag - Provider: Mila De Leon, RN)1400 (New Bag - Provider: Mila De Leon, RN)1425 (Auto Rate Verify - Provider: Mila De Leon, RN)1455 (Restarted - Provider: Rubia Velásquez RN)1556 (Stopped - Provider: Rubia Velásquez RN)1621 (New Bag - Provider: Rubia Velásquez RN) potassium chloride 10 mEq IV piggyback in 100 mL (CANCELED) 10 mEq, Intravenous, EVERY 1 HOUR, 4 doses, First dose on 02/16/25 at 0800, Last dose on 02/16/25 at 1100, Administer over 60 Minutes 0824 (MAR Hold - Provider: Interface, Incoming Adt - Reason: Procedure)0900 (Canceled Entry - Provider: Mila Mima Subject, RN)1000 (Canceled Entry - Provider: Mila Mima Subject, RN)1052 (New Bag - Provider: Mila Mima Subject, RN)1053 ([facility] Unhold - Provider: Interface, Incoming Adt)1059 (Canceled Entry - Provider: Mila Mima De Leon, RN)1100 (Canceled Entry - Provider: Mila Mima De Leon, RN)1155 (Auto Rate Verify - Provider: Mila Mima Subject, RN)1226 (Auto Rate Verify - Provider: Mila Guillermo Subject, RN) potassium chloride 10 mEq IV piggyback in 100 mL (COMPLETED) 10 mEq, Intravenous, EVERY 1 HOUR, 3 doses, First dose on 02/16/25 at 1200, Last dose on 02/16/25 at 1400, Administer over 60 Minutes 1147 (New Bag - Provider: Mila Mima De Leon, RN)1254 (New Bag - Provider: Mila Mima De Leon, RN)1403 (New Bag - Provider: Mila De Leon, RN) POTASSIUM REPLACEMENT INTRAVENOUS - NOT FOR DOCUMENTATION PURPOSES Intravenous, PER PROTOCOL, Starting on 02/08/25 at 0155, Until 02/16/25 at 2223 0824 ([facility] Hold - Provider: Interface, Incoming Adt - Reason: Procedure)1053 ([facility] Unhold - Provider: Interface, Incoming Adt) POTASSIUM REPLACEMENT ORAL - NOT FOR DOCUMENTATION PURPOSES oral, PER PROTOCOL, Starting on 02/08/25 at 0155, Until 02/16/25 at 2223, May request packets if patient requires liquid potassium. 0824 ([facility] Hold - Provider: Interface, Incoming Adt - Reason: Procedure)1053 ([facility] Unhold - Provider: Interface, Incoming Adt) [...] 1 DS tab. , On hold since [place] 02/13/2025 at 2327 until manually unheld 0800 (Automatically Held - Provider: Danielle Carrero DO)1999 (Automatically Held - Provider: Danielle Carrero DO) 0800 (Not Given - Provider: Mila De Leon, RN - Reason: deferred)1999 (Automatically Held - Provider: Danielle Carrero DO) 0800 (Not Given - Provider: Mila De Leon, RN - Reason: deferred)2223 (Unheld by provider - Provider: Ondischaashish Autodiscontinue) vancomycin (VANCOCIN) 1,000 mg in sodium chloride 0.9 % 250 mL IV piggyback (CANCELED) 1,000 mg (rounded from 1,072 mg = 20 mg/kg 53.6 kg), at 250 mL/hr, Intravenous, EVERY 18 HOURS (NS), First dose on 02/15/25 at 0000, Until Discontinued 0121 (New Bag - Provider: Michael Bishop RN) vancomycin (VANCOCIN) 1,000 mg in sodium chloride 0.9 % 250 mL IV piggyback 1,000 mg (rounded from 1,072 mg = 20 mg/kg 53.6 kg), at 250 mL/hr, Intravenous, EVERY 12 HOURS (NS), First dose (after last modification) on Mon02/15/25 at 1400, Until Discontinued 1349 (New Bag [...] 0800 1517 (Given - Provider: Mila De Leon, SINGH) varenicline tartrate (Chantix;Apo-Varenicline ) tablet 0.5 mg(Linked [...] Bishop RN)1013 (Restarted - Provider: Mila De Leon, SINGH)1245 (New Bag - Provider: Mila De Leon, SINGH)1458 (Paused - Provider: Rubia Velásquez RN)1458 (Rate Change - Provider: Rubia Velásquez RN)1756 (Auto Rate Verify - Provider: Rubia Velásquez RN) 0206 (New Bag - Provider: Patricia Herring RN)0824 (MAR Hold - Provider: Interface, Incoming Adt - Reason: Procedure)0845 (Paused - Provider: Mila De Leon RN)1050 (Restarted - Provider: Mila De Leon RN)1053 (MAR Unhold - Provider: Interface, Incoming Adt)1155 (Auto Rate Verify - Provider: Mila De Leon RN)1214 (Paused - Provider: Mila De Leon RN)1225 (New Bag - Provider: Mila N Subject, RN)1502 (Stopped - Provider: Mila De Leon, [...] - Provider: Mila De Leon, RN) 0824 ([facility] Hold - Provider: Interface, Incoming Adt - Reason: Procedure)1053 ([facility] Unhold - Provider: Interface, Incoming Adt) saline FLUSH syringe 10 mL 10 mL, Intravenous, NEEDED, Starting on 02/16/25 at 0947, Until 02/16/25 at 2223, Pre-Op, Line Care D50W IV syringe 25-50 mL 25-50 mL, Intravenous, NEEDED, Starting on 02/14/25 at 0909, Until 02/16/25 at 2223, hypoglycemia 0933 (Given - Provider: Maria Guadalupe Cagle RN)2041 (Given - Provider: Rubia Velásquez RN - Comment: unable to eat due to feeling full and nausous) 0824 ([facility] Hold - Provider: Interface, Incoming Adt - Reason: Procedure)1053 ([facility] Unhold - Provider: Interface, Incoming Adt) D50W IV syringe 25-50 mL 25-50 mL, Intravenous, NEEDED, Starting on 02/16/25 at 0947, Until 02/16/25 at 2223, Pre-Op, hypoglycemia glucagon, human recombinant (Glucagen) injection (conc: 1 mg/mL) 1 mg 1 mg, IntraMUSCULAR, EVERY 15 MINUTES NEEDED, 2 doses, Starting on 02/14/25 at 0909, Until 02/16/25 at 2223, for hypoglycemia 0824 ([facility] Hold - Provider: Interface, Incoming Adt - Reason: Procedure)1053 ([facility] Unhold - Provider: Interface, Incoming Adt) guaiFENesin (ROBITUSSIN) syrup 100 mg 100 mg, oral, EVERY 4 HOURS NEEDED, Starting on [place] 02/13/25 at 2114, Until 02/16/25 at 2223, cough 0417 (Given - Provider: Axel Torres RN) 1958 (Given - Provider: Rubia Velásquez, SINGH) 0428 (Given - Provider: Patricia Herring, SINGH)0824 (NOV Hold - Provider: Interface, Incoming Adt - Reason: Procedure)1053 (MAR Unhold - Provider: Interface, Incoming Adt) HYDROmorphone [...] Provider: Interface, Incoming Adt - Reason: Procedure)1053 ([facility] Unhold - Provider: Interface, Incoming Adt) HYDROmorphone (DILAUDID) tablet 2-4 mg 2-4 mg, oral, EVERY 4 HOURS NEEDED, Starting on [place] 02/13/25 at 0937, Until 02/16/25 at 2223, pain 0110 (Given - Provider: Axel Torres RN)0521 (Given - Provider: Axel Torres RN)1203 (Given - Provider: Maria Guadalupe Cagle RN)1618 (Given - Provider: Shashank Chen RN)2038 (Given - Provider: Rubia Velásquez RN) 0046 (Given - Provider: Michael Bishop RN)1930 (Given - Provider: Rubia Velásquez RN) 0042 (Given - Provider: Jacquelyn Yates, SINGH)0824 ([facility] Hold - Provider: Interface, Incoming Adt - Reason: Procedure)1053 ([facility] Unhold - Provider: Interface, Incoming Adt)1132 (Given - Provider: Mila De Leon, RN)1555 (Given - Provider: Rubia Velásquez RN) hydrOXYzine pamoate (Vistaril) capsule 25-50 mg 25-50 mg, oral, EVERY 6 HOURS NEEDED, Starting on 02/09/25 at 1257, Until 02/16/25 at 2223, Adjuvant to pain management 1618 (Given - Provider: Shashank Chen RN) 0824 ([facility] Hold - Provider: Interface, Incoming Adt - Reason: Procedure)1053 ([facility] Unhold - Provider: Interface, Incoming Adt)1325 (Given - Provider: Mila De Leon RN) lidocaine (LMX-4) topical cream 1 Application topical, NEEDED, Starting on 02/08/25 at 0049, Until Sun 5 at 2223, IV start or restart if patient prefers a needleless local anesthetic. 0824 ([facility] Hold - Provider: Interface, Incoming Adt - Reason: Procedure)1053 ([facility] Unhold - Provider: Interface, Incoming Adt) lidocaine 1% injection (conc: 10 mg/mL) 0.1-0.3 mL 0.1-0.3 mL, Intradermal, NEEDED, Starting on 02/08/25 at 0049, Until 02/16/25 at 2223, Local Anesthesia, IV start or restart 0824 ([facility] Hold - Provider: Interface, Incoming Adt - Reason: Procedure)1053 ([facility] Unhold - Provider: Interface, Incoming Adt) metoclopramide HCl (Reglan) injection 10 mg 10 mg, Intravenous, EVERY 6 HOURS NEEDED, Starting on 02/15/25 at 1046, Until Sun 5 at 2223, Nausea/Vomiting, 3rd choice 1144 (Given - Provider: Mila De Leon, SINGH) 0824 ([facility] Hold - Provider: Interface, Incoming Adt - Reason: Procedure)1053 ([facility] Unhold - Provider: Interface, Incoming Adt) ondansetron (Zofran) disintegrating tablet 4-8 mg(Linked Group 2) 4-8 mg, oral, EVERY 8 HOURS NEEDED, Starting on 02/08/25 at 0050, Until 02/16/25 at 2223, nausea & vomiting, 1st choice 0002 (See Alternative - Provider: Axel Torres RN)0858 (Given - Provider: Maria Guadalupe Cagle RN)1203 (See Alternative - Provider: Maria Guadalupe Cagle RN)1851 (Given - Provider: Shashank Chen RN) 0109 (Given - Provider: Michael Bishop RN)0801 (See Alternative - Provider: Mila De Leon, RN)162 (See Alternative - Provider: Rubia Velásquez RN)193 (Given - Provider: Rubia Velásquez RN) 032 (See Alternative - Provider: Patricia Herring, SINGH)0824 [...] (See Alternative - Provider: Rubia Velásquez RN) 032 (Given - Provider: Patricia Herring RN)0824 (MAR Hold - Provider: Interface, Incoming Adt - Reason: Procedure)1053 (MAR Unhold - Provider: Interface, Incoming Adt) prochlorperazine (COMPAZINE) injection 5-10 mg 5-10 mg, Intravenous, EVERY 6 HOURS NEEDED, Starting on 02/10/25 at 1023, Until 02/16/25 at 2223, Nausea/Vomiting, 2nd choice, nausea 1954 (Given - Provider: Rubia Velásquez, RN) 09 (Given - Provider: Mila De Leon RN) 043 (Given - Provider: Patricia Herring RN)0824 ([facility] Hold - Provider: Interface, Incoming Adt - Reason: Procedure)1053 ([facility] Unhold - Provider: Interface, Incoming Adt) saline with benzyl alcohol injection 0.1-0.3 mL 0.1-0.3 mL, Intradermal, NEEDED, Starting on 02/08/25 at 0049, Until 02/16/25 at 2223, IV start or restart 08 ([facility] Hold - Provider: Interface, Incoming Adt - Reason: Procedure)105 ([facility] Unhold - Provider: Interface, Incoming Adt) Vancomycin Pharmacy Consult Pneumonia diagnosis code: Suspected HAP/VAP (gram negative or MRSA pneumonia) 823 ([facility] Hold - Provider: Interface, Incoming Adt - Reason: Procedure)105 ([facility] Unhold - Provider: Interface, Incoming Adt) [...]
--- OUTSIDE RECORDS SUMMARY | 2025-02-21 14:42 | XMS_ITS | Clinical Summary ---
Author Organization [facility] Address [address] [place] [id number] Care Team Providers Care Organic Section Technical Lead Name Role Phone Unavailable Primary Care Provider Unavailabl e Allergies No known active allergies Medications pantoprazole (PROTONIX) 40 mg oral delayed release tabletIndicati ons:substituti on for home med Take 1 tablet (40 mg) by mouth twice a day Indications: substitution for home med. 120 tablet 02/17/20 25 Active acetaminophen (TYLENOL) 500 mg oral tablet Take 2 tablets (1,000 mg) by mouth four times a day. 720 tablet 02/17/20 25 Active gabapentin (NEURONTIN) 300 mg oral capsule Take 1 capsule (300 mg) by mouth three times a day. 270 capsule 3 02/17/20 25 Active hydrOXYzine pamoate (VISTARIL) 25 mg oral capsule Take 1-2 capsules (25-50 mg) by mouth every 6 (six) hours as needed. 30 tablet 02/17/20 25 Active methocarbamoL (ROBAXIN) 500 mg oral tablet Take 1-2 tablets (500-1,000 mg) by mouth four times a day. 60 tablet 02/17/20 25 Active nicotine (NICOTROL) 7 mg/24 hr TD patch Apply 1 patch (7 mg) to skin once daily. 30 patch 02/18/20 25 Active varenicline tartrate (CHANTIX;APO-V ARENICLINE) 0.5 mg oral tablet Take 0.5 tablets (0.25 mg) by mouth once daily for 3 days, THEN 0.5 tablets (0.25 mg) twice a day for 4 days, THEN 1 tablet (0.5 mg) twice a day for 60 days. 126 tablet 02/17/20 25 025 Active ondansetron (ZOFRAN) 4 mg oral ODT Dissolve 1-2 tablets (4-8 mg) in mouth every 12 (twelve) hours as needed for nausea. 30 tablet 02/17/20 Active metroNIDAZOLE (FLAGYL) 500 mg oral tablet Take 1 tablet (500 mg) by mouth every 8 (eight) hours for 21 days. 63 tablet 02/19/20 25 Active sulfamethoxazo le 800 mg-trimethopri m 160 mg (BACTRIM DS;SEPTRA DS) 800-160 mg oral tablet Take 1 tablet (160 mg) by mouth twice a day for 21 days. 42 tablet 02/19/20 25 Active ondansetron (ZOFRAN) 4 mg oral ODT Dissolve 2 tablets (8 mg) in mouth every 12 (twelve) hours as needed for nausea. Discontinued pantoprazole (PROTONIX) 40 mg oral delayed release tablet Take 1 tablet (40 mg) by mouth twice a day. Discontinued oxyCODONE, immediate release, (ROXICODONE) 5 mg oral tablet Take 1 tablet (5 mg) by mouth twice a day as needed. Discontinued ferrous sulfate (FERATAB) 325 mg (65 mg iron) oral tablet Take 1 tablet (325 mg) by mouth once daily. Discontinued sulfamethoxazo le 800 mg-trimethopri m 160 mg (BACTRIM DS;SEPTRA DS) 800-160 mg oral tabletIndicati ons:ORTHO, BONE AND STEBBINS JOINT INFECTIONS Take 1 tablet (160 mg) by mouth twice a day for 25 days Indications: ORTHO, BONE AND STEBBINS JOINT INFECTIONS. 50 tablet 02/14/20 25 025 Discontinued metroNIDAZOLE (FLAGYL) 500 mg oral tabletIndicati ons:ORTHO, BONE AND STEBBINS JOINT INFECTIONS Take 1 tablet (500 mg) by mouth every 8 (eight) hours for 25 days Indications: ORTHO, BONE AND STEBBINS JOINT INFECTIONS. 75 tablet 02/14/20 25 025 Discontinued pantoprazole (PROTONIX) 40 mg oral delayed release tabletIndicati ons:substituti on for home med Take 1 tablet (40 mg) by mouth twice a day Indications: substitution for home med. 120 tablet 02/17/20 025 Discontinued acetaminophen (TYLENOL) 500 mg oral tablet Take 2 tablets (1,000 mg) by mouth four times a day. 720 tablet 02/17/20 025 Discontinued gabapentin (NEURONTIN) 300 mg oral capsule Take 1 capsule (300 mg) by mouth three times a day. 270 capsule 3 02/17/20 025 Discontinued HYDROmorphone (DILAUDID) 2 mg oral tablet Take 1-2 tablets (2-4 mg) by mouth every 4 (four) hours as needed for pain. 32 tablet 02/17/20 025 Discontinued hydrOXYzine pamoate (VISTARIL) 25 mg oral capsule Take 1-2 capsules (25-50 mg) by mouth every 6 (six) hours as needed. 30 tablet 02/17/20 025 Discontinued methocarbamoL (ROBAXIN) 500 mg oral tablet Take 1-2 tablets (500-1,000 mg) by mouth four times a day. 60 tablet 02/17/20 025 Discontinued nicotine (NICOTROL) 7 mg/24 hr TD patch Apply 1 patch (7 mg) to skin once daily. 30 patch 02/18/20 Discontinued varenicline tartrate (CHANTIX;APO-V ARENICLINE) 0.5 mg oral tablet Take 0.5 tablets (0.25 mg) by mouth once daily for 3 days, THEN 0.5 tablets (0.25 mg) twice a day for 4 days, THEN 1 tablet (0.5 mg) twice a day for 60 days. 126 tablet 02/17/20 025 Discontinued metroNIDAZOLE (FLAGYL) 500 mg oral tabletIndicati ons:ORTHO, BONE AND STEBBINS JOINT INFECTIONS Take 1 tablet (500 mg) by mouth every 8 (eight) hours for 22 days Indications: ORTHO, BONE AND STEBBINS JOINT INFECTIONS. 66 tablet 02/17/20 025 Discontinued sulfamethoxazo le 800 mg-trimethopri m 160 mg (BACTRIM DS;SEPTRA DS) 800-160 mg oral tabletIndicati ons:ORTHO, BONE AND STEBBINS JOINT INFECTIONS Take 1 tablet (160 mg) by mouth twice a day for 22 days Indications: ORTHO, BONE AND STEBBINS JOINT INFECTIONS. 44 tablet 02/17/20 25 025 Discontinued HYDROmorphone (DILAUDID) 2 mg oral tablet Take 1-2 tablets (2-4 mg) by mouth every 4 (four) hours as needed for pain. 32 tablet 02/17/20 25 025 metroNIDAZOLE (FLAGYL) 500 mg oral tabletIndicati ons:ORTHO, BONE AND STEBBINS JOINT INFECTIONS Take 1 tablet (500 mg) by mouth every 8 (eight) hours for 22 days Indications: ORTHO, BONE AND STEBBINS JOINT INFECTIONS. 66 tablet 02/17/20 25 025 Discontinued sulfamethoxazo le 800 mg-trimethopri m 160 mg (BACTRIM DS;SEPTRA DS) 800-160 mg oral tabletIndicati ons:ORTHO, BONE AND STEBBINS JOINT INFECTIONS Take 1 tablet (160 mg) by mouth twice a day for 22 days Indications: ORTHO, BONE AND STEBBINS JOINT INFECTIONS. 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 Tobacco dependence 02/08/2025 Anemia 02/08/2025 Encounters Date Type Department Care Team Description 02/16/2025 8:15 AM CDT - 02/16/2025 8:50 AM T [facility] Advanced Procedure Unit [address] [id number] Chava Erickson MD ESOPHAGOGASTRODUODENOSCOPY WITH BIOPSY 2025 12:05 PM CDT - 2025 2:20 PM T [facility] Operating Room [address] [address] Taylor Zapien MD IRRIGATION AND DEBRIDEMENT OF RIGHT HAND, 02/09/2025 10:00 AM CDT - 02/09/2025 12:25 PM T [facility] Operating Room [address] [place] [address] Taylor Zapien MD RIGHT HAND IRRIGATION AND DEBRIDEMENT, 02/08/2025 12:26 AM CDT - 02/16/2025 4:00 PM CDT Hospital Encounter [id number] [facility] [place] [address] Ivis Ingram MD Hansen, Brian J, DO Ji, Lu, MD Osteomyelitis (HCC) Discharge Disposition: Returning Home/Self Care from Last 3 Months Social History Tobacco Use Types Packs/Day Years Used Date Smoking Tobacco: Every Day Cigarettes Cigars Tobacco Cessation:Ready to Q uit: Yes; Counseling Given: Not Answered [facility] Utilities Answer Date Recorded In the past 12 months has e [employer], gas, oil, or water [employer] threatened to shut off services in your [...] any time in the past 12 m [facility], were you homeless or living in a penitentiary (including now)? No 02/08/2025 Comments No Sex and Gender Information Value Date Recorded Sex Assigned at Not on file Legal Sex Female 8:23 PM CDT Gender Identity Not on file Sexual Orientation Not on file Last Filed Vital Signs Vital Sign Reading [...] Mass Index 22.33 02/08/2025 1:04 AM CDT Plan of Treatment Health Maintenance Due Date Last Done Comments Colonoscopy 1979 Hepatitis C Screening 1979 Lipid Screening 1979 Mammogram Screening 1979 Pap Smear 1979 Anxiety Screening (GEOVANI-2) 02/12/1980 Depression Assessment (PHQ-2) 02/12/1980 Pneumococcal Vaccine (1 of 2 - PCV) 1998 COVID-19 Vaccine (2023-2 5 season) 2024 Influenza Vaccine (Season Ended) 2025 Adult Tetanus Booster 01/23/2035 01/23/2025 , 01/25/2006 RSV Vaccines (1 - 1-dose 75+ series) 2054 Meningococcal B Vaccine Aged Out No l onger eligible based on patient's age to complete this topic Procedures Procedure Name Priority Date/Time Associated Diagnosis Comments MAGNESIUM STAT 02/16/2025 2:35 PM CDT POTASSIUM STAT 02/16/2025 2:35 PM CDT POCT GLU METER Routine 02/16/2025 1:58 PM CDT SURGICAL PATHOLOGY Routine 02/16/2025 9: 21 AM CDT Nausea and vomiting, unspecified vomiting type Dysphagia, unspecified type INTUBATION Routine 02/16/2025 8:54 AM CDT EGD TRANSORAL BIOPSY SINGLE/MULTIPLE 02/16/2025 8:51 AM [...] GLU METER Routine 02/15/2025 7:51 AM CDT LIPASE Add On 02/15/2025 7:41 AM CDT LIVER PROFILE Add On 02/15/2025 7:41 AM CDT VANCOMYCIN RANDOM Add On 02/15/2025 7:41 AM CDT BASIC METABOLIC PROF MAGNESIUM Routine 02/15/2025 7:41 AM CDT CBC (HGB,HCT,WBC,RBC,PLATEL ET) [...] PCR Routine 02/14/2025 1:1 3 AM CDT BLOOD CULTURE <5 YRS OLD OR SHORT DRAW Routine 02/14/2025 12:33 AM CDT EXTRA TUBE-EDTA Routine 02/14/2025 12:33 AM CDT EXTRA TUBE [...] PM CDT Gangrene, not elsewhere classified (HCC) INTUBATION Routine 2025 12:33 PM CDT INCISION & DRAINAGE ABSCESS SIMPLE/SINGLE 2025 12:22 [...] Routine 02/09/2025 10:57 AM CDT Gangrene (HCC) INTUBATION Routine 02/09/2025 10:21 AM CDT AMPUTATION FINGER(S) Class D 02/09/2025 10:07 AM CDT Gangrene (HCC) IRRIGATION AND DEBRIDEMENT HAND Class D 02/09/2025 10:07 AM CDT Gangrene (HCC) BASIC METABOLIC PROF MAGNESIUM Routine 02/09/2025 7:23 AM CDT CBC (HGB,HCT,WBC,RBC,PLATEL ET) Routine 02/09/2025 7:23 AM CDT VANCOMYCIN RANDOM Routine 02/09/2025 7:2 3 AM CDT POTASSIUM Timed Procedure 02/08/2025 9:32 PM CDT HCG URINE Routine 02/08/2025 8:42 AM CDT PROCALCITONIN Add On 02/08/2025 7:24 AM CDT BASIC METABOLIC PROF MAGNESIUM Routine 02/08/2025 7:24 AM CDT CBC (HGB,HCT,WBC,RBC,PLATEL ET) Routine 02/08/2025 7:24 AM CDT ELECTROCARDIOGRAM Routine 02/08/2025 5:5 7 AM CDT CREATININE EGFR Routine 02/08/2025 5:24 AM CDT MAGNESIUM Routine 02/08/2025 5:24 AM CDT POTASSIUM Routine 02/08/2025 5:24 AM CDT ABORH CONFIRM (LAB USE ONLY) Routine 02/08/2025 5:04 AM CDT LACTIC ACID STAT 02/08/2025 1:48 AM CDT TYPE AND SCREEN STAT 02/08/2025 1:45 AM CDT C REACTIVE PROTEIN STAT 02/08/2025 1: 45 AM CDT BASIC METAB PROFILE STAT 02/08/2025 1 :45 AM CDT CBC/DIFF STAT 02/08/2025 1:45 AM CDT XR OUTSIDE UPPER EXTREMITY STUDY Routine 02/07/2025 12:00 AM CDT from Last 3 Months Results * Magnesium (02/16/2025 2:35 PM CDT) Only the most recent of3 resultswithin the time period is included. Magnesium 1.9 1.6 - 2.6 mg/dL 02/16/2025 3:05 PM CDT [facility] Blood Venipuncture / Unknown 02/16/2025 2:35 PM CDT 02/16/2025 2:38 PM CDT Molly Epps PA-C CHEMISTRY ORDERABLE Final Result Performing Organization Address City/[facility] Co de Phone Number [facility] [address] [place] [id number] * Potassium (02/16/2025 2:35 PM CDT) Only the most recent of6 resultswithin the time period is included. Potassium 4.0 3.4 - 5.1 mmol/L 02/16/2025 2:59 PM CDT [facility] Blood Venipuncture / Unknown 02/16/2025 2:35 PM CDT 02/16/2025 2:38 PM CDT Molly Epps PA-C CHEMISTRY ORDERABLE Final Result Performing Organization Address City/[facility] Co de Phone Number [facility] [address] [place] [address] * (ABNORMAL) POCT Glucose Meter (02/16/2025 1:58 PM CDT) Only the most recent of13 resultswithin the time period is included. GLUCOSE WB METER 156(H) 60 - 100 mg/dL 02/16/2025 2:16 PM CDT [facility] Blood 02/16/2025 1:58 PM CDT 02/16/2025 2:16 PM CDT Michelle Pickering MD LAB POINT OF CARE TEST RESULTS F inal Result [facility] [address] [id number] * Surgical Pathology (02/16/2025 9:21 AM CDT) Only the most recent of2 resultswithin the time period is included. Case Report Surgical Pathology Case: [id number] Authorizing Provider: Chava Erickson MD Collected: 02/16/2025 09:21 AM Ordering Location: [facility] Received: 02/18/2025 09:11 AM Hospital Advanced Procedure Unit Pathologist: Christian Marquis MD Specimens: A) - Stomach (Specify) B) - Esophagus 02/19/2025 3:31 PM CDT [facility] Final Diagnosis A. Stomach, biopsy: Mild chronic inactive gastritis. Helicobacter pylori-like organisms are not identified on H&E stain. Negative for goblet cell metaplasia, dysplasia and malignancy. B. Esophagus, biopsy: Reactive squamous mucosa with fibrinopurulent exudate (ulcerative esophagitis). Viral cytopathic effect is not identified. Fungal organisms are identified. Negative for dysplasia, and malignancy. 02/19/2025 3:31 PM CDT [facility] at 1531 CDT Comment The fungal organisms are composed of yeast forms, suggestive of marta species. 02/19/2025 3:31 PM CDT [facility] Gross Description A. Stomach biopsy: Six up to 0.3 cm. IT-1. B. Esophagus biopsy: Four up to 0.3 cm. IT-1. 02/19/2025 3:31 PM CDT [facility] Microscopic Description The final diagnosis is based on the microscopic examination of all the slides. Block B is stained with PAS for fungal organisms. Fungal organisms are identified on the edge of the fibrinopurulent exudate and the surface of the squamous mucosa. 02/19/2025 3:31 PM CDT [facility] Tissue STOMACH STRUCTURE / Unknown 02/16/2025 [...] Erickson MD PATHOLOGY/CYTOLOGY ORDERA BLE Final Result [facility] [address] [place] [address] * Intubation (02/16/2025 8:54 AM CDT) Narrative Pamela Bass APRN, CRNA - 02/16/2025 8:54 AM CDT Pamela Bass APRN, CRNA 02/16/2025 9:05 AM Intubation Location: OR Procedural Details: Direct Vision, Atraumatic, Rapid Sequence/Cricoid Pressure, Preox and Pharynx Clear (edentulous) Entry Site: Oral Laryngoscope size: 2 Laryngoscope type: Meneses Tube size: 7.0 Maskability: not attempted Ease: easy Cormack-Lehane: grade I - visualization of entire laryngeal aperture (95%) Tube type: Single Lumen and Cuffed Performed by: Pamela Bass APRN, CRNA, CRNA Post-procedure assessment: BBS and EtCO2 + Cuff inflated: yes ETT to lip: 20 cm ETT placed with ease. General anesthetic due to hx of full stomach after being NPO. us Corey Shahid MD AN BLOCKS Final Resu lt * Endoscopy (02/16/2025 7:57 AM CDT) 02/16/2025 7:57 AM CDT Narrative TEST - 02/16/2025 10:00 AM CDT [facility] Patient Name: Clif Jackson Procedure Date: 02/16/2025 7:57 AM Date of [...] sign off Procedure Code(s): --- Professional --- 00032, Esophagogastroduodenoscopy, flexible, transoral; with biopsy, single or multiple Diagnosis Code(s): --- Professional --- K20.90, Esophagitis, unspecified without bleeding K31.89, Other diseases of stomach and duodenum K26.9, Duodenal ulcer, unspecified as acute or chronic, without hemorrhage or perforation CPT copyright 2021 [employer]. All rights reserved. The codes documented in this report are preliminary and upon snuff grinder and screener review may be revised to meet current compliance requirements. MD Chava Hua MD 02/16/2025 10:00:36 AM This report has been signed electronically.Chava Erickson MD Number of Addenda: 0 Note Initiated On: 02/16/2025 7:57 AM [address] [place] [address] Procedure Note Chava Erickson MD - 02/16/2025 [facility] Patient Name: Clif Jackson Procedure Date: 02/16/2025 7:57 AM Date of [...] sign off Procedure Code(s): --- Professional --- 78571, Esophagogastroduodenoscopy, flexible, transoral; with biopsy, single or multiple Diagnosis Code(s): --- Professional --- K20.90, Esophagitis, unspecified without bleeding K31.89, Other diseases of stomach and duodenum K26.9, Duodenal ulcer, unspecified as acute or chronic, without hemorrhage or perforation CPT copyright 2021 [employer]. All rights reserved. The codes documented in this report are preliminary and upon snuff grinder and screener reviewmay be revised to meet current compliance requirements. MD Chava Hua MD 02/16/2025 10:00:36 AM This report has been signed electronically.Chava Erickson MD Number of Addenda: 0 Note Initiated On: 02/16/2025 7:57 AM [address] [address] [place] Chava Erickson MD PROCEDURE ORDERABLE Final Result TEST * (ABNORMAL) Basic Metabolic Profile Magnesium (02/16/2025 7:06 AM T) Only the most recent of9 resultswithin the time period is included. Sodium 141 136 - 145 mmol/L 02/16/2025 7:56 AM [facility] Potassium 3.1(L) 3.4 - 5.1 mmol/L 02/16/2025 7:56 AM [facility] Chloride 109(H) 98 - 108 mmol/L 02/16/2025 7:56 AM [facility] Carbon Dioxide 30 20 - 31 mmol/L 02/16/2025 7:56 AM [facility] BUN (Urea Nitro) <5(L) 9 - 23 mg/dL 02/16/2025 7:56 AM [facility] Creatinine 0.53(L) 0.55 - 1.02 mg/dL 02/16/2025 7:56 AM [facility] Est GFR (CKD-EPI) >60.00 >60.00 mL/min/1. 73m2 02/16/2025 7:56 AM [facility] Comment:Calculation based on the Chronic Kidney Disease Epidemiology Collaboration (CKD-EPI) equation refit without adjustment for race. Glucose 90 74 - 106 mg/dL 02/16/2025 7:56 AM [facility] Calcium, Serum 7.4(L) 8.7 - 10.4 mg/dL 02/16/2025 7:56 AM [facility] Anion Gap 2.0 0.0 - 15.0 mmol/L 02/16/2025 7:56 AM [facility] Magnesium 1.5(L) 1.6 - 2.6 mg/dL 02/16/2025 7:56 AM [facility] Blood Venipuncture / Unknown 02/16/2025 7:06 AM CDT 02/16/2025 7:28 AM CDT us Ivis Ingram MD CHEMISTRY ORDERABLE Final Result [facility] [address] [place] [address] * (ABNORMAL) CBC (HGB,HCT,WBC,RBC,Platelet) (02/16/2025 7:06 AM CDT) Only the most recent of9 resultswithin the time period is included. WBC 5.4 4.3 - 10.8 K/uL 02/16/2025 7:36 AM [facility] RBC 2.14(L) 4.20 - 5.40 M/uL 02/16/2025 7:36 AM [facility] Hemoglobin 7.6(L) 12.0 - 16.0 gm/dL 02/16/2025 7:36 AM [facility] Hematocrit 24.2(L) 36.0 - 48.0 % 02/16/2025 7:36 AM [facility] MCV 113(H) 80 - 100 fL 02/16/2025 7:36 AM [facility] MCH 36(H) 27 - 33 pg 02/16/2025 7:36 AM [facility] MCHC 31(L) 33 - 36 gm/dL 02/16/2025 7:36 AM [facility] RDW 14.7(H) 11.5 - 14.5 % 02/16/2025 7:36 AM [facility] Platelet Count 219 150 - 400 K/UL 02/16/2025 7:36 AM [facility] MPV 9.9 6.5 - 12 fL 02/16/2025 7:36 AM CDT [facility] Blood Venipuncture / Unknown 02/16/2025 7:06 AM CDT 02/16/2025 7:29 AM CDT us Ivis Ingram MD HEMATOLOGY ORDERABLE Hailee merchant Result [facility] [address] [id number] * XR ABDOMEN FLAT & UPRIGHT (02/15/2025 [...] PA-C XRAY ORDERABLE Final Res ult * Vancomycin - Random (02/15/2025 7:41 AM CDT) Only the most recent of2 resultswithin the time period is included. Pathologist [facility] Vancomycin Random 22.1 11.0 - 45.0 ug/mL 02/15/2025 9:29 AM CDT [facility] Blood Venipuncture / Unknown 02/15/2025 7:41 AM CDT 02/15/2025 8:10 AM CDT Keila Beckman Pharm D CHEMISTRY ORDERABLE F inal Result Performing Organization Address City/[facility]/ZIP Co de Phone Number [facility] [address] [place] [address] * Lipase (02/15/2025 7:41 AM CDT) [facility] Lipase 53 12 - 53 U/L 02/15/2025 3:37 PM CDT [facility] Blood Venipuncture / Unknown 02/15/2025 7:41 AM CDT 02/15/2025 8:10 AM CDT Molly Epps PA-C CHEMISTRY ORDERABLE Final Result Performing Organization Address [facility]/ZIP Co de Phone Number [facility] [address] [place] [phone] * (ABNORMAL) Liver Profile (02/15/2025 7:41 AM CDT) [facility] ALT 16 7 - 40 U/L 02/15/2025 9:53 AM CDT [facility] Alkaline Phosphatase 528(H) 46 - 116 U/L 02/15/2025 9:53 AM CDT [facility] AST (SGOT) 11(L) 13 - 40 U/L 02/15/2025 9:53 AM CDT [facility] Protein Total 4.8(L) 5.7 - 8.2 g/dL 02/15/2025 9:53 AM CDT [facility] Albumin 1.5(L) 3.4 - 5.0 g/dL 02/15/2025 9:53 AM CDT [facility] Bilirubin-Direct <0.10 <0.40 mg/dL 02/15/2025 9:53 AM CDT [facility] Bilirubin-Total 0.20(L) 0.30 - 1.20 mg/dL 02/15/2025 9:53 AM CDT [facility] Blood Venipuncture / Unknown 02/15/2025 7:41 AM CDT 02/15/2025 8:10 AM CDT us Molly Epps PA-C CHEMISTRY ORDERABLE Final Result Performing Organization Address City/[facility]/ZIP Co de Phone Number [facility] [address] [address] * Extra Tube-EDTA (Lab Use Only) (02/14/2025 8:35 PM CDT) Only the most recent of2 resultswithin the time period is included. Blood 02/14/2025 8:35 PM CDT 02/14/2025 8:44 PM CDT us Moises Cm MD HEMATOLOGY ORDERABLE Final Result Performing Organization Address [facility]/ZIP Co de Phone Number [facility] [address] [place] [address] * Blood Aerobic (1 Bottle) Culture (02/14/2025 2:14 AM CDT) Only the most recent of2 resultswithin the time period is included. Blood Culture (<5 Years Old/Short Draw) No growth 5 days. 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 Aureus (MRSA) detected by PCR. 02/14/2025 4:13 AM CDT [facility] Nasal NASAL STRUCTURE / Unknown 02/14/2025 1:13 AM CDT 02/14/2025 1:40 AM CDT Danielle Carrero DO MICROBIOLOGY ORDERABLE Final Result Performing Organization Address [facility] Co de Phone Number [facility] [place] [address] * Extra Tube PST (Lab Use Only) (02/14/2025 12:33 AM CDT) Blood 02/14/2025 12:3 3 AM CDT 02/14/2025 1:09 AM CDT Michelle Pickering MD CHEMISTRY ORDERABLE Final Result Performing Organization Address [facility] Co de Phone Number [facility] [place] [address] * XR CHEST AP PORT (02/13/2025 10:13 [...] 5 days. TONIO 02/16/2025 9:36 AM CDT [facility] Site-Microbiology STRUCTURE OF RIGHT INDEX FINGER / Unknown 2025 1:03 PM CDT Comment:Pre-op diagnosis: Gangrene, not elsewhere classified (HCC) [I96] Taylor Zapien MD MICROBIOLOGY ORDERABLE Final Result Performing Organization Address City/State/[facility] de Phone Number [facility] [address], [place] [id number] * (ABNORMAL) Culture-Aerobic (2025 1:03 PM CDT) Only the most recent of3 resultswithin the time period is included. Aerobic Culture Few colonies of Methicillin resistant Staphylococcus aureus (MRSA)(A) TONIO 02/14/2025 6:56 AM CDT [facility] Aerobic Culture One colony of Escherichia coli(A) TONIO 02/14/2025 6:56 AM CDT [facility] Gram Stain Result No bacteria seen. 02/14/2025 6:56 AM CDT [facility] Gram Stain Result No WBC's seen / LPF 02/14/2025 6:56 AM CDT [facility] Site-Microbiology STRUCTURE OF RIGHT INDEX FINGER [...] Trimethoprim/Sulfame thoxazol e TONIO <=20: Sensitive Taylor Zapien MD MICROBIOLOGY ORDERABLE Final Result [facility] [address] [place] [place] [id number] * Intubation (2025 12:33 PM CDT) Narrative Angeles Duenas N - 2025 12:33 PM CDT Angeles Duenas 2025 12:51 PM Intubation Location: OR Anesthesia Type: general Emergent? not emergent Procedural Details: Direct Vision, Atraumatic, Dentition Intact, Preox, Pharynx Clear and Rapid Sequence/Cricoid Pressure Entry Site: Oral Laryngoscope size: 2 Laryngoscope type: Meneses Tube size: 6.5 Maskability: not attempted Ease: easy Cormack-Lehane: grade I - visualization of entire laryngeal aperture (95%) Tube type: Single Lumen and Cuffed Performed by: Keily Whaley APRN, REBECA, ANIMAL BEHAVIOURIST Post-procedure assessment: BBS and EtCO2 + Cuff inflated: yes ETT to lip: 23 cm Due to previous records rapid sequence induction performed. Gastric content noted upon insertion of blade, suctioned immediately and placed in head up position. ETT placed without difficulty, lungs clear to auscultation. OG placed with 800 gastric content removed. us Gal Shankar MD AN BLOCKS Final Result * (ABNORMAL) Procalcitonin (2025 7:14 AM CDT) Only the most recent of2 resultswithin the time period is included. Procalcitonin 4.22(H) <=0.05 ng/mL 2025 8:03 AM T [facility] Blood Capillary / Unknown 2025 7:14 AM CDT 2025 7:22 AM CDT [facility] LABORATORY - 2025 8:03 AM CDT PROCALCITONIN REFERENCE [...] ORDERABLE Fi nal Result Performing Organization Address [facility]/ZIP Co de Phone Number [facility] [address] [id number] * Intubation (02/09/2025 10:21 AM CDT) Narrative Melonie Alcantar APRN, CRNA - 02/09/2025 10:21 AM CDT Melonie Alcantar APRN, CRNA 02/09/2025 10:39 AM Intubation Location: OR Procedural Details: Direct Vision, Atraumatic, Rapid Sequence/Cricoid Pressure, Dentition Intact, Preox and Pharynx Clear Entry Site: Oral Laryngoscope size: 3 Laryngoscope type: Mac Tube size: 7.0 Maskability: not attempted Ease: easy Cormack-Lehane: grade I - visualization of entire laryngeal aperture (95%) Tube type: Single Lumen and Cuffed Performed by: Melonie Alcantar APRN, CRNA, REBECA Post-procedure assessment: BBS and EtCO2 + Cuff inflated: yes ETT to lip: 21 cm Patient had LMA in place. After rotating bed 90 degrees away from anesthesia, ANIMAL BEHAVIOURIST Noticed that gastric contents were coming out of the LMA. Dr Camacho still in the OR. ANIMAL BEHAVIOURIST suctioned mouth well, paralytic give, LMA removed, DLX1 MAC 3-grade 1 view. Oropharynx clear. No change to lips/teeth from preop. 14 macedonian catheter put down ETT-no contents suctioned. ANIMAL BEHAVIOURIST placed OGT. 500 CC gastric content suctioned out. O2 saturation 100% throughout. Christ Camacho MD AN BLOCKS Final Result * HCG Urine (02/08/2025 8:42 AM CDT) hCG Urine Negative Negative 02/08/2025 8:53 AM CDT [facility] Urine URINE SPECIMEN / Unknown 02/08/2025 8:42 AM CDT 02/08/2025 8:46 AM CDT Ivis Ingram MD URINE ORDERABLE Final Res ult Performing Organization Address City/[facility]/ZIP Co de Phone Number [facility] [address] [place] [address] * Electrocardiogram (02/08/2025 5:57 AM CDT) EKG JOSE NEWELL Comment: [facility] Test Date: 2025-02-08 Pat Name: CLIF JACKSON Department: A7 Room: [facility] Gender: F 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: JANNA : 1980 Requested By: IVIS INGRAM MD Order Number: [id number] Reading MD: Meagan Torres MD Measurements Intervals [place] Rate: 95 P: 74 OR: 140 QRS: 24 QRSD: 95 T: 60 [...] Torres MD 02/08/2025 5:57 AM CDT us Ivis Ingram MD EKG ORDERABLE Final Res ult Performing Organization Address City/State/[facility] Co de Phone Number [place] [address] [place] [address] * (ABNORMAL) Creatinine eGFR (02/08/2025 5:24 AM CDT) Creatinine 0.31(L) 0.55 - 1.02 mg/dL 02/08/2025 7:25 AM CDT [facility] Est GFR (CKD-EPI) >60.00 >60.00 mL/min/1. 73m2 02/08/2025 7:25 AM CDT [facility] Comment:Calculation based on the Chronic Kidney Disease Epidemiology Collaboration (CKD-EPI) equation refit without adjustment for race. Blood Venipuncture / Unknown 02/08/2025 5:24 AM CDT 02/08/2025 5:58 AM CDT us Ivis Ingram MD CHEMISTRY ORDERABLE Final Result Performing Organization Address [facility]/ZIP Co de Phone Number [facility] [address] [place] [address] * ABORh Confirm (Lab Use Only) (02/08/2025 5:04 AM CDT) Group and Rh A Positive 02/08/2025 6:51 AM CDT [facility] Blood 02/08/2025 5:04 AM CDT 02/08/2025 5:45 AM CDT us Ivis Ingram MD BLOOD BANK ORDERABLE Hailee l Result Performing Organization Address [facility] Co de Phone Number [facility] [address] [place] [id number] [facility] [address] [place] [address] * Lactic Acid (02/08/2025 1:48 AM CDT) Pathologist [facility] Lactic Acid 0.8 0.7 - 2.1 mmol/L 02/08/2025 1:49 AM CDT [facility] Blood 02/08/2025 1:48 AM CDT 02/08/2025 1:48 AM CDT us Ivis Ingram MD CHEMISTRY ORDERABLE Final Result Performing Organization Address [facility] Co de Phone Number [facility] [address] [place] [address] * Type and Screen (02/08/2025 1:45 AM CDT) Group and Rh A Positive 02/08/2025 2:49 AM CDT [facility] Antibody Screen Negative 02/08/2025 2:49 AM T [facility] Blood 02/08/2025 1:45 AM CDT 02/08/2025 1:52 AM CDT us Ivis Ingram MD BLOOD BANK ORDERABLE Edit ed Result - Final [facility] [address] [place] [address] [facility] [address] [place] [address] * (ABNORMAL) Basic Metabolic Profile (02/08/2025 1:45 AM CDT) Sodium 139 136 - 145 mmol/L 02/08/2025 2:25 AM [facility] Potassium 3.5 3.4 - 5.1 mmol/L 02/08/2025 2:25 AM [facility] Chloride 107 98 - 108 mmol/L 02/08/2025 2:25 AM [facility] Carbon Dioxide 28 20 - 31 mmol/L 02/08/2025 2:25 AM [facility] BUN (Urea Nitro) 8(L) 9 - 23 mg/dL 02/08/2025 2:25 AM [facility] Creatinine 0.28(L) 0.55 - 1.02 mg/dL 02/08/2025 2:25 AM [facility] Est GFR (CKD-EPI) >60.00 >60.00 mL/min/1. 73m2 02/08/2025 2:25 AM [facility] Comment:Calculation based on the Chronic Kidney Disease Epidemiology Collaboration (CKD-EPI) equation refit without adjustment for race. Glucose 77 74 - 106 mg/dL 02/08/2025 2:25 AM [facility] Calcium, Serum 8.0(L) 8.7 - 10.4 mg/dL 02/08/2025 2:25 AM [facility] Anion Gap 4.0 0.0 - 15.0 mmol/L 02/08/2025 2:25 AM CDT [facility] Blood 02/08/2025 1:45 AM CDT 02/08/2025 1:52 AM CDT Ivis Ingram MD CHEMISTRY ORDERABLE Final Result Performing Organization Address [facility] Co de Phone Number [facility] [address] [place] [address] * (ABNORMAL) C-Reactive Protein (02/08/2025 1:45 AM CDT) C Reactive Protein 8.2(H) <=0.5 mg/dL 02/08/2025 2:25 AM CDT [facility] Blood 02/08/2025 1:45 AM CDT 02/08/2025 1:52 AM CDT Ivis Ingram MD IMMUNOLOGY ORDERABLE Hailee l Result Performing Organization Address City/[facility] Co de Phone Number [facility] [address] [place] [address] * (ABNORMAL) CBC / Diff (02/08/2025 1:45 AM CDT) WBC 15.5(H) 4.3 - 10.8 K/uL 02/08/2025 2:07 AM CDT [facility] RBC 2.88(L) 4.20 - 5.40 M/uL 02/08/2025 2:07 AM T [facility] Hemoglobin 10.1(L) 12.0 - 16.0 gm/dL 02/08/2025 2:07 AM T [facility] Hematocrit 32.6(L) 36.0 - 48.0 % 02/08/2025 2:07 AM T [facility] MCV 113(H) 80 - 100 fL 02/08/2025 2:07 AM T [facility] MCH 35(H) 27 - 33 pg 02/08/2025 2:07 AM [facility] MCHC 31(L) 33 - 36 gm/dL 02/08/2025 2:07 AM [facility] RDW 15.3(H) 11.5 - 14.5 % 02/08/2025 2:07 AM [facility] Platelet Count 370 150 - 400 K/UL 02/08/2025 2:07 AM [facility] MPV 8.9 6.5 - 12 fL 02/08/2025 2:07 AM [facility] PMN % 86.5 % 02/08/2025 2:07 AM [facility] IG % 0.8 <=1.0 % 02/08/2025 2:07 AM [facility] Lymphocyte % 7.8 % 02/08/2025 2:07 AM [facility] Monocyte % 4.1 % 02/08/2025 2:07 AM [facility] Eosinophil % 0.5 % 02/08/2025 2:07 AM [facility] Basophil % 0.3 % 02/08/2025 2:07 AM [facility] PMN Absolute 13.42(H) 1.80 - 7.80 K/uL 02/08/2025 2:07 AM [facility] Lymphocyte Absolute 1.21 1.00 - 4.00 K/uL 02/08/2025 2:07 AM [facility] Monocyte Absolute 0.64 0.00 - 1.00 K/uL 02/08/2025 2:07 AM [facility] Eosinophil Absolute 0.08 0.00 - 0.45 K/uL 02/08/2025 2:07 AM [facility] Basophil Absolute 0.04 0.00 - 0.20 K/uL 02/08/2025 2:07 AM [facility] Nucl RBC % 0.0 0.0 - 0.0 /100 WBC 02/08/2025 2:07 AM [facility] Nucl RBC Absolute 0.00 0.00 - 0.00 K/uL 02/08/2025 2:07 AM [facility] Blood 02/08/2025 1:45 AM CDT 02/08/2025 1:52 AM CDT us Ivis Ingram MD HEMATOLOGY ORDERABLE Hailee l Result [facility] [address] [address] * XR OUTSIDE UPPER EXTREMITY STUDY (02/07/2025 12:00 AM CDT) us Study Outside XRAY ORDERABLE Final Result from Last 3 Months Additional Health Concerns Infection Onset 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 Physician Erwin toribio
--- OUTSIDE RECORDS SUMMARY | 2025-02-21 14:43 | XMS_ITS | Referral Summary ---
Author Organization [facility] Address [address] [place] [address] Care Team Providers Care Military Technology Manager Name Role Phone Unavailable Primary Care Provider Unavailabl e Encounters Date Type Department Care Team Description 02/16/2025 8:15 AM CDT - 02/16/2025 8:50 AM CDT Surgery [facility] Advanced Procedure Unit [address] [place] [address] [place] [address] Chava Erickson MD ESOPHAGOGASTRODUODENOSCOPY WITH BIOPSY 02/08/2025 12:26 AM CDT - 02/16/2025 4:00 PM CDT Hospital Encounter A[address] [place] [address] Ivis Ingram MD Hansen, Brian J, DO Ji, Lu, MD Osteomyelitis (HCC) Discharge Disposition: Returning Home/Self Care 2025 12:05 PM CDT - 2025 2:20 PM CDT Surgery [facility] Operating Room [address] [place] [address] [place] [address] Taylor Zapien MD IRRIGATION AND DEBRIDEMENT OF RIGHT HAND, 02/09/2025 10:00 AM CDT - 02/09/2025 12:25 PM CDT Surgery [facility] Operating Room [address] [place] [address] [place] [address] Taylor Zapien MD RIGHT HAND IRRIGATION AND DEBRIDEMENT, from Last 3 Months Allergies No known active allergies Medications pantoprazole (PROTONIX) 40 mg oral delayed release tabletIndicati ons:substituti on for home med Take 1 tablet (40 mg) by mouth twice a day Indications: substitution for home med. 120 tablet 02/17/20 Active acetaminophen (TYLENOL) 500 mg oral tablet Take 2 tablets (1,000 mg) by mouth four times a day. 720 tablet 02/17/20 Active gabapentin (NEURONTIN) 300 mg oral capsule Take 1 capsule (300 mg) by mouth three times a day. 270 capsule 3 02/17/20 Active hydrOXYzine pamoate (VISTARIL) 25 mg oral capsule Take 1-2 capsules (25-50 mg) by mouth every 6 (six) hours as needed. 30 tablet 02/17/20 Active methocarbamoL (ROBAXIN) 500 mg oral tablet Take 1-2 tablets (500-1,000 mg) by mouth four times a day. 60 tablet 02/17/20 Active nicotine (NICOTROL) 7 mg/24 hr TD [...] for 60 days. 126 tablet 02/17/20 025 Active ondansetron (ZOFRAN) 4 mg oral ODT Dissolve 1-2 tablets (4-8 mg) in mouth every 12 (twelve) hours as needed for nausea. 30 tablet 02/17/20 25 Active metroNIDAZOLE (FLAGYL) 500 mg oral tablet Take 1 tablet (500 mg) by mouth every 8 (eight) hours for 21 days. 63 tablet 02/19/20 25 025 Active sulfamethoxazo le 800 mg-trimethopri m 160 mg (BACTRIM DS;SEPTRA DS) 800-160 mg oral tablet Take 1 tablet (160 mg) by mouth twice a day for 21 days. 42 tablet 02/19/20 25 025 Active ondansetron (ZOFRAN) 4 mg [...] 800-160 mg oral tabletIndicati ons:ORTHO, BONE AND [place] JOINT INFECTIONS Take 1 tablet (160 mg) by mouth twice a day for 25 days Indications: ORTHO, BONE AND [place] JOINT INFECTIONS. 50 tablet 02/14/20 Discontinued metroNIDAZOLE (FLAGYL) 500 mg oral tabletIndicati ons:ORTHO, BONE AND [place] JOINT INFECTIONS Take 1 tablet (500 mg) by mouth every 8 (eight) hours for 25 days Indications: ORTHO, BONE AND [place] JOINT INFECTIONS. 75 tablet 02/14/20 Discontinued pantoprazole (PROTONIX) 40 mg oral delayed release tabletIndicati ons:substituti on for home med Take 1 tablet (40 mg) by mouth twice a day Indications: substitution for home med. 120 tablet 02/17/20 Discontinued acetaminophen (TYLENOL) 500 mg oral tablet Take 2 tablets (1,000 mg) by mouth four times a day. 720 tablet 02/17/20 Discontinued gabapentin (NEURONTIN) 300 mg oral capsule Take 1 capsule (300 mg) by mouth three times a day. 270 capsule 3 02/17/20 Discontinued HYDROmorphone (DILAUDID) 2 mg oral tablet Take 1-2 tablets (2-4 mg) by mouth every 4 (four) hours as needed for pain. 32 tablet 02/17/20 Discontinued hydrOXYzine pamoate (VISTARIL) 25 mg oral [...] 500 mg oral tabletIndicati ons:ORTHO, BONE AND [place] JOINT INFECTIONS Take 1 tablet (500 mg) by mouth every 8 (eight) hours for 22 days Indications: ORTHO, BONE AND [place] JOINT INFECTIONS. 66 tablet 02/17/20 025 Discontinued sulfamethoxazo le 800 mg-trimethopri m 160 mg (BACTRIM DS;SEPTRA DS) 800-160 mg oral tabletIndicati ons:ORTHO, BONE AND [place] JOINT INFECTIONS Take 1 tablet (160 mg) by mouth twice a day for 22 days Indications: ORTHO, BONE AND [place] JOINT INFECTIONS. 44 tablet 02/17/20 025 Discontinued HYDROmorphone (DILAUDID) 2 mg oral tablet Take 1-2 tablets (2-4 mg) by mouth every 4 (four) hours as needed for pain. 32 tablet 02/17/20 025 metroNIDAZOLE (FLAGYL) 500 mg oral tabletIndicati ons:ORTHO, BONE AND [place] JOINT INFECTIONS Take 1 tablet (500 mg) by mouth every 8 (eight) hours for 22 days Indications: ORTHO, BONE AND [place]AN[place] JOINT INFECTIONS. 66 tablet 02/17/20 25 025 Discontinued sulfamethoxazo le 800 mg-trimethopri m 160 mg (BACTRIM DS;SEPTRA DS) 800-160 mg oral tabletIndicati ons:ORTHO, BONE AND NANW[place] JOINT INFECTIONS Take 1 tablet (160 mg) by mouth twice a day for 22 days Indications: ORTHO, BONE AND NANWALEK JOINT INFECTIONS. 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 No 02/08/2025 Comments No Sex [...] 02/08/2025 1:04 AM CDT Plan of Treatment Not on file Procedures Procedure Name Priority Date/Time Associated Diagnosis [...] Add On 02/15/2025 7:4 1 AM CDT BASIC METABOLIC PROF MAGNESIUM Routine [...] - 2.6 mg/dL 02/16/2025 3:05 PM CDT [facility] Blood Venipuncture / Unknown 02/16/2025 2:35 PM CDT 02/16/2025 2:38 PM CDT us Molly Epps PA-C CHEMISTRY ORDERABLE Final Result [facility] [address] [address] * Potassium (02/16/2025 2:35 PM CDT) Only the most recent of6 resultswithin the time period is included. Potassium 4.0 3.4 - 5.1 mmol/L 02/16/2025 2:59 PM CDT [facility] Blood Venipuncture / Unknown 02/16/2025 2:35 PM CDT 02/16/2025 2:38 PM CDT us Molly Epps PA-C CHEMISTRY ORDERABLE Final Result Performing Organization Address [facility]/ZIP Co de Phone Number [facility] [address] [place] [address] * (ABNORMAL) POCT Glucose Meter (02/16/2025 1:58 PM CDT) Only the most recent of13 resultswithin the time period is included. GLUCOSE WB METER 156(H) 60 - 100 mg/dL 02/16/2025 2:16 PM CDT [facility] Blood 02/16/2025 1:58 PM CDT 02/16/2025 2:16 PM CDT us Michelle Pickering MD LAB POINT OF CARE TEST RESULTS F inal Result Performing Organization Address City/[facility] Co de Phone Number [facility] [address] [place] [address] * Surgical Pathology (02/16/2025 9:21 AM CDT) Only the most recent of2 resultswithin the time period is included. Case Report Surgical Pathology Case: [id number] Authorizing Provider: Chava Erickson MD Collected: 02/16/2025 09:21 AM Ordering Location: [facility] Received: 02/18/2025 09:11 AM Hospital Advanced Procedure Unit Pathologist: Christian Marquis MD Specimens: A) - Stomach (Specify) B) - Esophagus 02/19/2025 3:31 PM CDT [facility] Final Diagnosis A. Stomach, biopsy: Mild chronic inactive gastritis. Helicobacter pylori-like organisms are not identified on H&E stain. Negative for goblet cell metaplasia, dysplasia and malignancy. B. Esophagus, biopsy: Reactive squamous mucosa with fibrinopurulent exudate (ulcerative esophagitis). Viral cytopathic effect is not identified. Fungal organisms are identified. Negative for dysplasia, and malignancy. 02/19/2025 3:31 PM CDT [facility] at 1531 CDT Comment The fungal organisms are composed of yeast forms, suggestive of marta species. 02/19/2025 3:31 PM CDT [facility] Gross Description A. Stomach biopsy: Six up to 0.3 cm. IT-1. B. Esophagus biopsy: Four up to 0.3 cm. IT-1. 02/19/2025 3:31 PM CDT [facility] Microscopic Description The final diagnosis is based on the microscopic examination of all the slides. Block B is stained with PAS for fungal organisms. Fungal organisms are identified on the edge of the fibrinopurulent exudate and the surface of the squamous mucosa. 02/19/2025 3:31 PM CDT [facility] Tissue STOMACH STRUCTURE / Unknown 02/16/2025 9:21 AM CDT 02/18/2025 9:11 AM CDT Comment:Pre-op diagnosis: Nausea and vomiting, unspecified vomiting type [R11.2] Dysphagia, unspecified type [R13.10] Tissue specimen (specimen) ESOPHAGEAL STRUCTURE / Unknown 02/16/2025 9:23 AM CDT 02/18/2025 9:11 AM CDT Comment:Pre-op diagnosis: Nausea and vomiting, unspecified vomiting type [R11.2] Dysphagia, unspecified type [R13.10] us Chava Erickson MD PATHOLOGY/CYTOLOGY ORDERA BLE Final Result [facility] [address] [place] [address] * Intubation (02/16/2025 8:54 AM CDT) Narrative [...] hx of full stomach after being NPO. Corey HICKS BLOCKS Final Resu lt * Endoscopy (02/16/2025 7:57 AM CDT) 02/16/2025 7:57 AM CDT Narrative TEST - 02/16/2025 10:00 AM CDT [facility] Patient Name: Clif Jackson Procedure Date: 02/16/2025 [...] sign off Procedure Code(s): --- Professional --- 34168, Esophagogastroduodenoscopy, flexible, transoral; with biopsy, single or multiple Diagnosis Code(s): --- Professional --- K20.90, Esophagitis, unspecified without bleeding K31.89, Other diseases of stomach and duodenum K26.9, Duodenal ulcer, unspecified as acute or chronic, without hemorrhage or perforation CPT copyright 2021 [employer]. All rights reserved. The codes documented in this report are preliminary and upon mediation commissioner review may be revised to meet current compliance requirements. MD Chava Hua MD 02/16/2025 10:00:36 AM This report has been signed electronically.Chava Erickson MD Number of Addenda: 0 Note Initiated On: 02/16/2025 7:57 AM [address] [place] [address] Procedure Note Chava Erickson MD - 02/16/2025 [facility] Patient Name: Clif Jackson Procedure Date: 02/16/2025 [...] sign off Procedure Code(s): --- Professional --- 47541, Esophagogastroduodenoscopy, flexible, transoral; with biopsy, single or multiple Diagnosis Code(s): --- Professional --- K20.90, Esophagitis, unspecified without bleeding K31.89, Other diseases of stomach and duodenum K26.9, Duodenal ulcer, unspecified as acute or chronic, without hemorrhage or perforation CPT copyright 2021 [employer]. All rights reserved. The codes documented in this report are preliminary and upon mediation commissioner reviewmay be revised to meet current compliance requirements. MD Chava Hua MD 02/16/2025 10:00:36 AM This report has been signed electronically.Chava Erickson MD Number of Addenda: 0 Note Initiated On: 02/16/2025 7:57 AM [address] [address] us Chava Erickson MD PROCEDURE ORDERABLE Final Result TEST * (ABNORMAL) Basic Metabolic Profile Magnesium (02/16/2025 7:06 AM [facility]) Only the most recent of9 resultswithin the time period is included. Sodium 141 136 - 145 mmol/L 02/16/2025 7:56 AM [facility] Potassium 3.1(L) 3.4 - 5.1 mmol/L 02/16/2025 7:56 AM [facility] Chloride 109(H) 98 - 108 mmol/L 02/16/2025 7:56 AM [facility] Carbon Dioxide 30 20 - 31 mmol/L 02/16/2025 7:56 AM [facility] BUN (Urea Nitro) <5(L) 9 - 23 mg/dL 02/16/2025 7:56 AM [facility] Creatinine 0.53(L) 0.55 - 1.02 mg/dL 02/16/2025 7:56 AM [facility] Est GFR (CKD-EPI) >60.00 >60.00 mL/min/1. 73m2 02/16/2025 7:56 AM [facility] Comment:Calculation based on the Chronic Kidney Disease Epidemiology Collaboration (CKD-EPI) equation refit without adjustment for race. Glucose 90 74 - 106 mg/dL 02/16/2025 7:56 AM [facility] Calcium, Serum 7.4(L) 8.7 - 10.4 mg/dL 02/16/2025 7:56 AM [facility] Anion Gap 2.0 0.0 - 15.0 mmol/L 02/16/2025 7:56 AM [facility] Magnesium 1.5(L) 1.6 - 2.6 mg/dL 02/16/2025 7:56 AM [facility] Blood Venipuncture / Unknown 02/16/2025 7:06 AM T 02/16/2025 7:28 AM [facility] us Ivis Ingram MD CHEMISTRY ORDERABLE Final Result [facility] [address] [address] * (ABNORMAL) CBC (HGB,HCT,WBC,RBC,Platelet) (02/16/2025 7:06 AM CDT) Only the most recent of9 resultswithin the time period is included. WBC 5.4 4.3 - 10.8 K/uL 02/16/2025 7:36 AM [facility] RBC 2.14(L) 4.20 - 5.40 M/uL 02/16/2025 7:36 AM [facility] Hemoglobin 7.6(L) 12.0 - 16.0 gm/dL 02/16/2025 7:36 AM [facility] Hematocrit 24.2(L) 36.0 - 48.0 % 02/16/2025 7:36 AM [facility] MCV 113(H) 80 - 100 fL 02/16/2025 7:36 AM [facility] MCH 36(H) 27 - 33 pg 02/16/2025 7:36 AM [facility] MCHC 31(L) 33 - 36 gm/dL 02/16/2025 7:36 AM [facility] RDW 14.7(H) 11.5 - 14.5 % 02/16/2025 7:36 AM [facility] Platelet Count 219 150 - 400 K/UL 02/16/2025 7:36 AM [facility] MPV 9.9 6.5 - 12 fL 02/16/2025 7:36 AM [facility] Blood Venipuncture / Unknown 02/16/2025 7:06 AM CDT 02/16/2025 7:29 AM CDT us Ivis Ingram MD HEMATOLOGY ORDERABLE Hailee merchant Result [facility] [address] [address] * XR ABDOMEN FLAT & UPRIGHT (02/15/2025 [...] - 45.0 ug/mL 02/15/2025 9:29 AM CDT [facility] Blood Venipuncture / Unknown 02/15/2025 7:41 AM CDT 02/15/2025 8:10 AM CDT us Keila Beckman Pharm D CHEMISTRY ORDERABLE F inal Result [facility] [place] [place] [address] * Lipase (02/15/2025 7:41 AM CDT) Lipase 53 12 - 53 U/L 02/15/2025 3:37 PM CDT [facility] Blood Venipuncture / Unknown 02/15/2025 7:41 AM CDT 02/15/2025 8:10 AM CDT us Molly JOLLEY-C CHEMISTRY ORDERABLE Final Result [facility] [place] [address] * (ABNORMAL) Liver Profile (02/15/2025 7:41 AM CDT) Pathologist [facility] ALT 16 7 - 40 U/L 02/15/2025 9:53 AM T [facility] Alkaline Phosphatase 528(H) 46 - 116 U/L 02/15/2025 9:53 AM [facility] AST (SGOT) 11(L) 13 - 40 U/L 02/15/2025 9:53 AM [facility] Protein Total 4.8(L) 5.7 - 8.2 g/dL 02/15/2025 9:53 AM [facility] Albumin 1.5(L) 3.4 - 5.0 g/dL 02/15/2025 9:53 AM T [facility] Bilirubin-Direct <0.10 <0.40 mg/dL 02/15/2025 9:53 AM [facility] Bilirubin-Total 0.20(L) 0.30 - 1.20 mg/dL 02/15/2025 9:53 AM [facility] Blood Venipuncture / Unknown 02/15/2025 7:41 AM CDT 02/15/2025 8:10 AM CDT us Molly Epps PA-C CHEMISTRY ORDERABLE Final Result Performing Organization Address [facility]/ZIP Co de Phone Number [facility] [place] [address] * Extra Tube-EDTA (Lab Use Only) (02/14/2025 8:35 PM CDT) Only the most recent of2 resultswithin the time period is included. Blood 02/14/2025 8:35 PM CDT 02/14/2025 8:44 PM CDT us Moises Cm MD HEMATOLOGY ORDERABLE Final Result Performing Organization Address [facility] Co de Phone Number [facility] [place] [address] * Blood Aerobic (1 Bottle) Culture (02/14/2025 2:14 AM CDT) Only the most recent of2 resultswithin the time period is included. Blood Culture (<5 Years Old/Short Draw) No growth 5 days. 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 Aureus (MRSA) detected by PCR. 02/14/2025 4:13 AM CDT [facility] Nasal NASAL STRUCTURE / Unknown 02/14/2025 1:13 AM CDT 02/14/2025 1:40 AM CDT us Danielle Carrero DO MICROBIOLOGY ORDERABLE Final Result Performing Organization Address City/[facility]/ZIP Co de Phone Number [facility] [place] [place] [address] * Extra Tube PST (Lab Use Only) (02/14/2025 12:33 AM CDT) Blood 02/14/2025 12:3 3 AM CDT 02/14/2025 1:09 AM CDT us Michelle Pickering MD CHEMISTRY ORDERABLE Final Result Performing Organization Address City/[facility]/ZIP Co de Phone Number [facility] [address] [address] * XR CHEST AP PORT (02/13/2025 10:13 [...] infiltrate. REPORT SIGNED BY Rico Cunningham MD us Danielle Carrero DO XRAY ORDERABLE Final Result * Culture-Anaerobe (2025 1:03 PM CDT) Only the most recent of3 resultswithin the time period is included. CULT-ANAEROBE No anaerobic growth in 5 days. TONIO 02/16/2025 9:36 AM CDT [facility] Site-Microbiology STRUCTURE OF RIGHT INDEX FINGER / Unknown 2025 1:03 PM CDT Comment:Pre-op diagnosis: Gangrene, not elsewhere classified (HCC) [I96] Taylor Zapien MD MICROBIOLOGY ORDERABLE Final Result [facility] [address] [address] * (ABNORMAL) Culture-Aerobic (2025 1:03 PM CDT) Only the most recent of3 resultswithin the time period is included. Aerobic Culture Few colonies of Methicillin resistant Staphylococcus aureus (MRSA)(A) TONIO 02/14/2025 6:56 AM CDT [facility] Aerobic Culture One colony of Escherichia coli(A) TONIO 02/14/2025 6:56 AM CDT [facility] Gram Stain Result No bacteria seen. 02/14/2025 6:56 AM CDT [facility] Gram Stain Result No WBC's seen / LPF 02/14/2025 6:56 AM CDT [facility] Site-Microbiology STRUCTURE OF RIGHT INDEX FINGER / [...] coli Trimethoprim/Sulfame thoxazol e TONIO <=20: Sensitive us Taylor Zapien MD MICROBIOLOGY ORDERABLE Final Result [facility] [address] [place] [address] * Intubation (2025 12:33 PM CDT) Narrative Angeles Duenas N - 2025 12:33 PM CDT Yulissa, Angeles Guillermo 2025 12:51 PM Intubation Location: OR Anesthesia [...] and Cuffed Performed by: Keily Whaley APRN, SALES PERSON, SALES PERSON Post-procedure assessment: BBS and EtCO2 + Cuff [...] 4.22(H) <=0.05 ng/mL 2025 8:03 AM CDT [facility] Blood Capillary / Unknown 2025 7:14 AM CDT 2025 7:22 AM CDT Narrative [facility] - 2025 8:03 AM CDT PROCALCITONIN [...] septic shock. Carlene Rosen PA-C CHEMISTRY ORDERABLE On license of [facility] Result Performing Organization Address City/State/[facility] Co de Phone Number [facility] [address] [address] * Intubation (02/09/2025 10:21 AM CDT) Narrative [...] and Cuffed Performed by: Melonie Alcantar APRN, REBECA, SALES PERSON Post-procedure assessment: BBS and EtCO2 + Cuff inflated: yes ETT to lip: 21 cm Patient had LMA in place. After rotating bed 90 degrees away from anesthesia, SALES PERSON Noticed that gastric contents were coming out of the LMA. Dr Camacho still in the OR. SALES PERSON suctioned mouth well, paralytic give, LMA removed, DLX1 MAC 3-grade 1 view. Oropharynx clear. No change to lips/teeth from preop. 14 bengali catheter put down ETT-no contents suctioned. SALES PERSON placed OGT. 500 CC gastric content suctioned out. O2 saturation 100% throughout. us Christ Camacho MD AN BLOCKS Final Result * HCG Urine (02/08/2025 8:42 AM CDT) hCG Urine Negative Negative 02/08/2025 8:53 AM CDT [facility] Urine URINE SPECIMEN / Unknown 02/08/2025 8:42 AM CDT 02/08/2025 8:46 AM CDT us Ivis Ingram MD URINE ORDERABLE Final Res ult Performing Organization Address [facility]/State/[facility] Co de Phone Number [facility] [address] [place], [place] [address] * Electrocardiogram (02/08/2025 5:57 AM CDT) EKG HVI REECE Comment: [facility] Test Date: 2025-02-08 Pat Name: CLIF JACKSON Department: A7 Room: A783 Gender: F Folder Machine 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 73m2 02/08/2025 7:25 AM CDT [facility] Comment:Calculation based on the Chronic Kidney Disease Epidemiology Collaboration (CKD-EPI) equation refit without adjustment for race. Blood Venipuncture / Unknown 02/08/2025 5:24 AM CDT 02/08/2025 5:58 AM CDT us Ivis Ingram MD CHEMISTRY ORDERABLE Final Result Performing Organization Address City/[facility]/ZIP Co de Phone Number [facility] [address] [place] [address] * ABORh Confirm (Lab Use Only) (02/08/2025 5:04 AM CDT) Pathologist [facility] Group and Rh A Positive 02/08/2025 6:51 AM CDT [facility] Blood 02/08/2025 5:04 AM CDT 02/08/2025 5:45 AM CDT us Ivis Ingram MD BLOOD BANK ORDERABLE Hailee l Result Performing Organization Address [facility]/ZIP Co de Phone Number [facility] [address] [place] [address] [facility] [address] [place] [address] * Lactic Acid (02/08/2025 1:48 AM CDT) [facility] Lactic Acid 0.8 0.7 - 2.1 mmol/L 02/08/2025 1:49 AM CDT [facility] Blood 02/08/2025 1:48 AM CDT 02/08/2025 1:48 AM CDT us Ivis Ingram MD CHEMISTRY ORDERABLE Final Result Performing Organization Address [facility] Co de Phone Number [facility] [address] [place] [address] * Type and Screen (02/08/2025 1:45 AM CDT) Pathologist [facility] and Rh A Positive 02/08/2025 2:49 AM CDT [facility] Antibody Screen Negative 02/08/2025 2:49 AM CDT [facility] Blood 02/08/2025 1:45 AM CDT 02/08/2025 1:52 AM CDT us Ivis Ingram MD BLOOD BANK ORDERABLE Edit ed Result - Final Performing Organization Address City/[facility]/ZIP Co de Phone Number [facility] [address] [facility] [place] [address] [facility] [address] [facility] [place] [address] * (ABNORMAL) Basic Metabolic Profile (02/08/2025 1:45 AM CDT) Sodium 139 136 - 145 mmol/L 02/08/2025 2:25 AM T [facility] Potassium 3.5 3.4 - 5.1 mmol/L 02/08/2025 2:25 AM T [facility] Chloride 107 98 - 108 mmol/L 02/08/2025 2:25 AM T [facility] Carbon Dioxide 28 20 - 31 mmol/L 02/08/2025 2:25 AM T [facility] BUN (Urea Nitro) 8(L) 9 - 23 mg/dL 02/08/2025 2:25 AM T [facility] Creatinine 0.28(L) 0.55 - 1.02 mg/dL 02/08/2025 2:25 AM T [facility] Est GFR (CKD-EPI) >60.00 >60.00 mL/min/1. 73m2 02/08/2025 2:25 AM T [facility] Comment:Calculation based on the Chronic Kidney Disease Epidemiology Collaboration (CKD-EPI) equation refit without adjustment for race. Glucose 77 74 - 106 mg/dL 02/08/2025 2:25 AM [facility] Calcium, Serum 8.0(L) 8.7 - 10.4 mg/dL 02/08/2025 2:25 AM [facility] Anion Gap 4.0 0.0 - 15.0 mmol/L 02/08/2025 2:25 AM [facility] Blood 02/08/2025 1:45 AM CDT 02/08/2025 1:52 AM CDT us Ivis Ingram MD CHEMISTRY ORDERABLE Final Result [facility] [address] [place] [address] * (ABNORMAL) C-Reactive Protein (02/08/2025 1:45 AM CDT) C Reactive Protein 8.2(H) <=0.5 mg/dL 02/08/2025 2:25 AM [facility] Blood 02/08/2025 1:45 AM CDT 02/08/2025 1:52 AM CDT us Ivis Ingram MD IMMUNOLOGY ORDERABLE Hailee merchant Result [facility] [address] [place] [address] * (ABNORMAL) CBC / Diff (02/08/2025 1:45 AM CDT) WBC 15.5(H) 4.3 - 10.8 K/uL 02/08/2025 2:07 AM [facility] RBC 2.88(L) 4.20 - 5.40 M/uL 02/08/2025 2:07 AM [facility] Hemoglobin 10.1(L) 12.0 - 16.0 gm/dL 02/08/2025 2:07 AM [facility] Hematocrit 32.6(L) 36.0 - 48.0 % 02/08/2025 2:07 AM [facility] MCV 113(H) 80 - 100 fL 02/08/2025 2:07 AM [facility] MCH 35(H) 27 - 33 pg 02/08/2025 2:07 AM [facility] MCHC 31(L) 33 - 36 gm/dL 02/08/2025 2:07 AM [facility] RDW 15.3(H) 11.5 - 14.5 % 02/08/2025 2:07 AM [facility] Platelet Count 370 150 - 400 K/UL 02/08/2025 2:07 AM [facility] MPV 8.9 6.5 - 12 fL 02/08/2025 2:07 AM [facility] PMN % 86.5 % 02/08/2025 2:07 AM [facility] IG % 0.8 <=1.0 % 02/08/2025 2:07 AM [facility] Lymphocyte % 7.8 % 02/08/2025 2:07 AM [facility] Monocyte % 4.1 % 02/08/2025 2:07 AM [facility] Eosinophil % 0.5 % 02/08/2025 2:07 AM [facility] Basophil % 0.3 % 02/08/2025 2:07 AM [facility] PMN Absolute 13.42(H) 1.80 - 7.80 K/uL 02/08/2025 2:07 AM [facility] Lymphocyte Absolute 1.21 1.00 - 4.00 K/uL 02/08/2025 2:07 AM [facility] Monocyte Absolute 0.64 0.00 - 1.00 K/uL 02/08/2025 2:07 AM [facility] Eosinophil Absolute 0.08 0.00 - 0.45 K/uL 02/08/2025 2:07 AM [facility] Basophil Absolute 0.04 0.00 - 0.20 K/uL 02/08/2025 2:07 AM [facility] Nucl RBC % 0.0 0.0 - 0.0 /100 WBC 02/08/2025 2:07 AM [facility] Nucl RBC Absolute 0.00 0.00 - 0.00 K/uL 02/08/2025 2:07 AM [facility] Blood 02/08/2025 1:45 AM CDT 02/08/2025 1:52 AM CDT us Ivis Ingram MD HEMATOLOGY ORDERABLE Hailee merchant Result [facility] [address] [place] [address] * XR OUTSIDE UPPER EXTREMITY STUDY (02/07/2025 12:00 AM CDT) us Study Outside XRAY ORDERABLE Final Result from Last 3 Months Additional Health Concerns Infection Onset Date Last Indicated MRSA 02/09/2025 02/14/2025 Insurance MEDICAID [place] Advance Directives For more information, please contact: [phone] * Full Code (Latest Code Status on File) Date Activated Date Inactivated Comments 02/08/2025 12:52 AM 02/16/2025 10:23 PM Question Answer Comments How was code status determined? Physician Erwin toribio
--- OUTSIDE RECORDS SUMMARY | 2025-02-21 14:46 | XMS_ITS | Clinical Summary ---
Author Organization [employer] [facility] Address [address] [place] [id number] Care Team Providers Care Rehabilitation Caseworker Name Role Phone Anish Locke MD Primary Care Provider + Allergies Active Allergy Reactions Criticality Noted Date Comments Cats (Fur, Dander, Saliva) Hives 7 Ibuprofen Edema 01/22/2007 face Medications pantoprazole 40 mg delayed-release tabletIndication s:Gastroesophage al reflux disease, unspecified whether esophagitis present Take 1 Tablet (40 mg) by mouth two times daily before meals. 60 Tablet 1 01/13/2025 1:04 PM CDT 12/10/2024 Active ferrous sulfate 325 [...] Encounters Date Type Department Care Team Description 02/02/2025 10:03 PM CDT - 02/02/2025 10:30 PM CDT Emergency [facility] [address] [place] [address] Pedro Remy MD Open wound of digit of hand (Primary Dx) Discharge Disposition: Against Medical Advice or Discontinued Care 02/02/2025 Travel 01/27/2025 Orders Only [facility] Scanner 1 scan: (1-Ord) INCOMING RECORDS-LABS, [facility], 01/27/2025 01/27/2025 Orders Only [facility] Scanner 1 scan: (1-Ord) INCOMING RECORDS-CT, [facility], 01/27/2025 01/27/2025 Orders Only [facility] Scanner 1 scan: (1-Ord) INCOMING RECORDS-ENDOSCOPY, [facility], 01/27/2025 01/27/2025 Telephone [facility] [address] [place], [place] [phone] Rikki Sorensen MD Referral 01/27/2025 Orders Only [facility] [address] [place], [place] [phone] Mercedes Mireles NP <No scans attached> 01/15/2025 Telephone [facility] [address] [place] [address] Jesús Garcia MD Consult 01/13/2025 Orders Only [facility] Scanner 1 scan: (1-Ord) [place], UPPER GI ENDOSCOPY, 01/13/2025 01/08/2025 Orders Only [facility] Scanner 1 scan: (1-Ord) [place], MULTIPLE LABS, 01/08/2025 01/08/2025 Orders Only [facility] Scanner 1 scan: (1-Ord) [place], CT ABDOMEN PELVIS W CON, 01/08/2025 12/09/2024 4:44 PM CDT - 12/10/2024 6:40 PM CDT Hospital Encounter [facility] [address] [place] [address] Christie Carbajal PA Mittelsteadt, Awa Rodriguez MD Hospitalist, [facility] Bueno, MD Hilario Linares, Ebonie Chi, DO Anemia, unspecified type (Primary [...] or yelled at (see row info)? No 02/02/2025 Interpersonal Safety Abuse 12 - 18 Not on file 02/02/2025 Interpersonal Safety Ambulatory Vulnerability No t on file 02/02/2025 Utilities Answer Date Recorded Do you have trouble paying f or utilities (for example, heat, electricity, water, phone)? 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 Gender Identity Female 12/09/2024 4:46 PM CDT Sexual Orientation Straight 12/09/2024 4: 46 PM CDT Occupation Industry Job Start Date Job End Date [employer] Not on file Not on file Not on file Obstetrics History Last Filed Vital Signs Vital Sign Reading Time Taken Comments Blood Pressure 137/100 02/02/2025 10:07 PM CDT Pulse 107 02/02/2025 10:07 PM CDT Temperature 36.9 C (98.5 F) 02/02/2025 10:07 PM CDT Respiratory Rate 16 02/02/2025 10:07 PM CDT Oxygen Saturation 96% 02/02/2025 10:07 PM CDT Inhaled Oxygen Concentration - - Weight 54 kg (119 lb) 02/02/2025 10:09 PM CDT Height 154.9 cm (5' 1) 02/02/2025 10:09 PM CDT Body Mass Index 22.48 02/02/2025 10:09 PM CDT Plan of Treatment Upcoming Encounters Date Type Department Care Team (Late st Contact Info) Description 02/27/2025 12:45 PM CDT Appointment [facility] [address] [place] [address] 02/27/2025 1:30 PM CDT Appointment [facility] [address] [place] [address] 02/27/2025 2:30 PM CDT Office Visit [facility] [address] [place] [address] Rikki Sorensen MD [address] [facility] [address] [place] [address] Health Maintenance Due Date Last Done Comments Depression screening for age 12+ 1991 HIV for age 15-65 1994 BMI (ht and wt on same day) for age 18+ 1997 Hepatitis C screening for age 18-79 1997 Hepatitis B series for 19+ ( 1 of 3 - 19+ 3-dose series) 1998 Pneumococcal series for age 6-49 (1 of 2 - PCV) 1997 Pap test for age 21-65 02/12/2000 Tetanus booster 01/26/2016 01/25/2006 Colonoscopy through age 75 02/12/2024 Lipids for age 45-75 02/12/2024 Mammogram for age 45-75 02/12/2024 COVID-19 vaccine series ( season) Influenza Vaccine (Season Ended) 2025 Tdap Completed 01/25/2006 Procedures Procedure Name Priority Date/Time Associated Diagnosis Comments SCAN CORRESP-LABORATORY RESULTS 01/27/2025 12:00 AM CDT SCAN CORRESP-IMAGING 01/27/2025 12:00 AM CDT SCAN CORRESP-DIAGNOSTICS 01/27/2025 12:00 AM CDT SCAN-ENDOSCOPY 01/13/2025 12:00 AM CDT SCAN-LABORATORY REPORT 12:00 AM CDT SCAN-CT INTERPRETATION 12:00 AM CDT RBC W/O TYPE & SCREEN STAT 12/11/2024 [...] CDT RED BLOOD CELLS EA UNIT STAT 12/11/19 1:20 AM CDT FOLIC ACID Timed 12/10/2024 [...] CDT RED BLOOD CELLS EA UNIT STAT 12/10/19 6:46 PM CDT XR CHEST 2 VIEWS PA AND LATERAL STAT 12/09/2024 6:16 PM CDT EKG 12 LEAD STAT 12/09/2024 5:47 PM CDT PROTIME-INR INDER 12/09/2024 5:43 PM CDT HAPTOGLOBIN INDER 12/09/2024 5:43 PM CDT FERRITIN INDER 12/09/2024 [...] PM CDT ETHANOL SERUM OR PLASMA STAT 12/10/19 25 5:43 PM CDT EXTRA TUBE BLUE Today 12/09/2024 5:43 PM CDT BASIC METABOLIC PANEL STAT 12/09/2024 5:43 PM CDT CBC WITH AUTO DIFFERENTIAL STAT 12/09/2024 5:43 PM CDT from Last 3 Months Results * SCAN CORRESP-LABORATORY RESULTS (01/27/2025 12:00 AM CDT) us Scanner OTHER Final Result * SCAN CORRESP-DIAGNOSTICS (01/27/2025 12:00 AM CDT) us Scanner OTHER Final Result * SCAN CORRESP-IMAGING (01/27/2025 12:00 AM CDT) Anatomical Region Laterality Modality Other us Scanner OTHER Final Result * SCAN-ENDOSCOPY (01/13/2025 12:00 AM CDT) us Scanner OTHER Final Result * SCAN-LABORATORY REPORT (01/08/2025 12:00 AM CDT) us Scanner OTHER Final Result * SCAN-CT INTERPRETATION (01/08/2025 12:00 AM CDT) Anatomical Region Laterality Modality Other us Scanner OTHER Final Result * RBC W/O TYPE & SCREEN (12/11/2024 5:22 AM CDT) Only the most recent of2 resultswithin the time period is included. Pathologist [facility] QUANTITY 1 12/11/2024 5:22 AM CDT [facility] BLOOD BANK Blood BLOOD SPECIMEN / Unknown 12/10/2024 1:08 AM CDT us Anuradha Bueno MD BLOOD BANK Final R esult [facility] BLOOD BANK [address] [place] [address] * SEDIMENTATION RATE (12/10/2024 12:22 PM CDT) [facility] SEDIMENTATION RATE 7 <20 mm/hr 2024 1:44 PM CDT [facility] Blood BLOOD SPECIMEN / Unknown Butterfly / Unknown 12/10/2024 12:22 PM CDT 12/10/2024 12:24 PM CDT us Ebonie Rich DO HEMATOLOGY Final Result [facility] [address] [place] [address] * (ABNORMAL) Hemoglobin q 6 (12/10/2024 12:22 PM CDT) Only the most recent of4 resultswithin the time period is included. Pathologist [facility] HEMOGLOBIN 8.1(L) 12.0 - 16.0 g/dL 12/10/2024 1:39 PM CDT [facility] MCV 90 80 - 100 fL 12/10/2024 1:39 PM CDT [facility] Blood BLOOD SPECIMEN / Unknown Butterfly / Unknown 12/10/2024 12:22 PM CDT 12/10/2024 12:24 PM CDT Anuradha Bueno MD HEMATOLOGY Final R esult [facility] [address] [place] [address] * (ABNORMAL) POTASSIUM (12/10/2024 12:22 PM CDT) Only the most recent of3 resultswithin the time period is included. POTASSIUM 3.4(L) 3.5 - 5.1 mmol/L 12/10/2024 12:45 PM CDT [facility] Blood BLOOD SPECIMEN / Unknown Butterfly / Unknown 12/10/2024 12:22 PM CDT 12/10/2024 12:24 PM CDT Ebonie Rich DO CHEMISTRY Final Result [facility] [address] [place] [address] * (ABNORMAL) C-REACTIVE PROTEIN (12/10/2024 12:22 PM CDT) C-REACTIVE PROTEIN 1.0(H) <0.5 mg/dL 12/10/2024 1:56 PM CDT [facility] Blood BLOOD SPECIMEN / Unknown Butterfly / Unknown 12/10/2024 12:22 PM CDT 12/10/2024 12:24 PM CDT Ebonie Rich DO CHEMISTRY Final Result [facility] [address] [facility] [place] [address] * SCAN-CARDIAC STRIP (12/10/2024 9:25 AM CDT) us Scanner OTHER Final Result * TRANSFUSE RBC (NURSE COMMUNICATION ORDER) (12/10/2024 5:57 AM CDT) Blood BLOOD SPECIMEN / Unknown us Anuradha Bueno MD NURSING BLOOD BANK Hailee l Result * Peripheral blood morphology (12/10/2024 5:52 AM CDT) Case Report Special Hematology Report Case: [id number] Authorizing Provider: Anuradha Bueno MD Collected: 12/10/2024 0552 Ordering Location: [facility] Received: 12/10/[address] [place] [address] Pathologist: Chad Glynn MD Specimen: Blood 12/11/2024 2:08 PM CDT [facility] Final Diagnosis PERIPHERAL BLOOD: 1. Marked normocytic anemia, consistent with iron deficiency anemia 2. Moderate thrombocytosis, favor reactive 3. Mild absolute neutrophilia, favor reactive 4. See comment 12/11/2024 2:08 PM CDT [facility]TRAL LABORATORY at 1408 CDT Comment [...] MT, MS (ASCP). 12/11/2024 2:08 PM CDT [facility] Clinical Information The patient is a [...] 8.0 VITAMIN B12: 1,175 12/11/2024 2:08 PM T [facility] CBC and Differential HEMATOLOGY PARAMETERS Tested at: [facility] RESULTS EXPECTED VALUES WBC: 9.7 4.5-47h9915/cumm RBC: 2.33 4.00-5.20 mil/cumm DECREASED HGB: 5.5 12-16 gm/dl DECREASED HCT: 21.2 33-51% DECREASED MCV: 91.0 80-100 fl NORMOCYTIC MCH: 23.6 26-34 pg DECREASED MCHC: 25.9 32-36 gm/dl HYPOCHROMIC RDW: 22.8 11.5-15.5% ELEVATED PLT: 648 140-388u2035/uL ELEVATED MPV: 9.2 6.5-11 fl Retic: 1.9 0.5-1.5% ELEVATED Differential Tested at: [facility] Absolute (%) Expected (%) (x10*9/L) (x10*9/L) Neutrophils: 7.8 (80.4) 1.7-7.0 (42-72%) ELEVATED Lymphocytes: 1.3 (13.4) 0.9-2.9 (20-44%) Monocytes: 0.6 (6.2) <0.9 (0-11%) Basophils: 0.1 (1) <0.3 (<3.0%) 12/11/2024 2:08 PM [facility] Reticulocytes Retic: 1.9 0.5-1.5% ELEVATED 12/11/2024 2:08 PM [facility] Microscopic Description The final diagnosis is based on microscopic examination of an appropriately stained blood smear. 12/11/2024 2:08 PM CDT [facility] Additional Information Interpreted at [facility] - [address] [place] [address] [address] [address] 12/11/2024 2:08 PM CDT [facility] Blood BLOOD SPECIMEN / Unknown Venipuncture [...] Anuradha Bueno MD HEMATOLOGY Final R esult [facility] [address] [place] [address], * CARDIOLIPIN ANTIBODY (12/10/2024 5:51 AM CDT) Cardiolipin IgA 2.1 <=20.0 CU 5 12:17 PM CDT [facility] Cardiolipin IgG 2.7 <=20.0 CU 5 12:17 PM CDT [facility] Cardiolipin IgM 1.8 <=20.0 CU 5 12:17 PM CDT [facility] Blood BLOOD SPECIMEN / Unknown Butterfly / Unknown 12/10/2024 5:51 AM CDT 12/10/2024 6:[address] [facility] - 12/13/2024 12:17 PM CDT Interpretation: Moderate to high titers (40 GPL or MPL by RIMMA assays) of aCL correlate better with aPL-related clinical events than do lower titers; IgG is more strongly associated with clinical events than is IgM ([facility] 378(21):2010). Roll Over Press Operator's studies have shown the following correlation between anti- cardiolipin antibody levels quantified by the BioFlash Chemiluminescent method compared to RIMMA (Antibodies 2016,5,14): For IgG aCL: 95 CU corresponds to 40 GPL For IgM aCL: 31 CU corresponds to 40 MPL Ebonie Rich DO SEND OUTS Final Result Performing Organization Address [facility]/ZIP Co de Phone Number [facility] [address] [place] [address], * (ABNORMAL) PLATELET COUNT (12/10/2024 5:51 AM CDT) PLATELET COUNT 531(H) 140 - 440 thou/cu mm 12/10/2024 6:23 AM CDT [facility] MPV 9.1 6.5 - 11.0 fL 12/10/2024 6:23 AM CDT [facility] Blood BLOOD SPECIMEN / Unknown Butterfly / Unknown 12/10/2024 5:51 AM CDT 12/10/2024 6:17 AM CDT Anuradha Bueno MD HEMATOLOGY Final R esult [facility] [address] [place] [address] * SODIUM (12/10/2024 5:51 AM CDT) SODIUM 141 136 - 145 mmol/L 12/10/2024 7:11 AM CDT [facility] Blood BLOOD SPECIMEN / Unknown Butterfly / Unknown 12/10/2024 5:51 AM CDT 12/10/2024 6:18 AM CDT Anuradha Bueno MD CHEMISTRY Final R esult Performing Organization Address City/[facility]/ZIP Co de Phone Number [facility] [address] [place] [address] * (ABNORMAL) CREATININE (12/10/2024 5:51 AM CDT) eGFR >90 >90 mL/min/1.7 3m2 12/10/2024 7:11 AM CDT [facility] Comment:As of 2021, eG FR is calculated by the CKD-EPI creatinine equation without race adjustment. eGFR can be influenced by muscle mass, exercise, and diet. The reported eGFR is an estimation only and is only applicable if the renal function is stable. CREATININE 0.31(L) 0.50 - 0.90 mg/dL 12/10/2024 7:11 AM CDT [facility] Blood BLOOD SPECIMEN / Unknown Butterfly / Unknown 12/10/2024 5:51 AM CDT 12/10/2024 6:18 AM CDT Anuradha Bueno MD CHEMISTRY Final R esult Performing Organization Address [facility] Co de Phone Number [facility] [address] [place] [address] * MAGNESIUM (12/10/2024 5:51 AM CDT) Only the most recent of2 resultswithin the time period is included. Pathologist [facility] MAGNESIUM 2.0 1.6 - 2.6 mg/dL 12/10/2024 7:22 AM CDT [facility] Blood BLOOD SPECIMEN / Unknown Butterfly / Unknown 12/10/2024 5:51 AM CDT 12/10/2024 6:18 AM CDT Danyelle Stevens NP CHEMISTRY Final Result Performing Organization Address [facility]/ZIP Co de Phone Number [facility] [address] [place] [address] * Vitamin B12 level AM (12/10/2024 5:51 AM CDT) VITAMIN B12 1,175 232 - 1,245 pg/mL 12/10/2024 1:00 PM CDT [facility] Blood BLOOD SPECIMEN / Unknown Butterfly / Unknown 12/10/2024 5:51 AM CDT 12/10/2024 6:[address] [facility] - 12/10/2024 1:00 PM CDT Biotin supplements may cause clinically significant interference for this test assay. If interference is suspected, it is strongly recommended that biotin is discontinued for at least one week prior to retesting. us Anuradha Bueno MD CHEMISTRY Final R esult [facility] [address] [place] [address], [place] * SCAN-CARDIAC STRIP (12/10/2024 4:06 AM CDT) Scanner OTHER Final Result * RED BLOOD CELLS EA UNIT (12/10/2024 1:20 AM CDT) Only the most recent of2 resultswithin the time period is included. Pathologist [facility] CROSSMATCH Compatible Compatible [facility] BLOOD BANK PRODUCT BLOOD TYPE A Rh Positive [facility] BLOOD BANK PRODUCT ID NUMBER [id number] [facility] BLOOD BANK PRODUCT STATUS Transfused [facility] BLOOD BANK PRODUCT DESCRIPTION RBC -1 LR [facility] BLOOD BANK PRODUCT CODE [id number] [facility] BLOOD BANK ISSUE DATE/TIME 12/10/24 02:31 [facility] BLOOD BANK us Christie JOLLEY BLOOD BANK Edited Result - Final [facility] BLOOD BANK [address] [place] [address] * FOLIC ACID (12/10/2024 12:50 AM CDT) FOLIC ACID 8.0 4.6 - 34.8 ng/mL 12/10/2024 12:55 PM CDT [facility] Blood BLOOD SPECIMEN / Unknown Butterfly / Unknown 12/10/2024 12:50 AM CDT 12/10/2024 12:[address] [facility] - 12/10/2024 12:55 PM CDT Biotin supplements may cause clinically significant interference for this test assay. If interference is suspected, it is strongly recommended that biotin is discontinued for at least one week prior to retesting. Anuradha Bueno MD CHEMISTRY Final R esult [facility] [address] [place] [address], * (ABNORMAL) TROPONIN T (HS) ONE TIME (12/10/2024 12:49 AM CDT) TROPONIN T HS 13(H) 6-10 ng/L ng/L 12/10/2024 1:29 AM CDT [facility] Blood BLOOD SPECIMEN / Unknown Butterfly / Unknown 12/10/2024 12:49 AM CDT 12/10/2024 12:53 AM CDT Christie JOLLEY CHEMISTRY Final Result [facility] [address] [place] [id number] * (ABNORMAL) FLOR (12/10/2024 12:49 AM CDT) ANTINUCLEAR ANTIBODY (FLOR) Positive( A) Negative 12/13/2024 12:40 PM CDT [facility] FLOR PATTERN 1 Centromer e(A) (none) 12/13/2024 12:40 PM CDT [facility] FLOR TITER 1 >=1:2560( A) (none) 12/13/2024 12:40 PM CDT [facility] Blood BLOOD SPECIMEN / Unknown Butterfly / Unknown 12/10/2024 12:49 AM CDT 12/10/2024 12:[address] [facility] - 12/13/2024 12:40 PM CDT Method: FLOR screen performed by (IFA) on HEP-2 substrate, IgG Anuradha Bueno MD CHEMISTRY Final R esult [facility] [address] [place] [address], * (ABNORMAL) LD,TOTAL (12/10/2024 12:49 AM CDT) LD,TOTAL 251(H) 135 - 214 IU/L 12/10/2024 1:39 AM CDT [facility] Blood BLOOD SPECIMEN / Unknown Butterfly / Unknown 12/10/2024 12:49 AM CDT 12/10/2024 12:53 AM CDT Anuradha Bueno MD CHEMISTRY Final R esult [facility] [address] [place] [address] * TRANSFUSE RBC (NURSE COMMUNICATION ORDER) (12/09/2024 10:39 PM CDT) Blood BLOOD SPECIMEN / Unknown Christie JOLLEY NURSING BLOOD BANK Fin al Result * OCCULT BLOOD IFOBT STOOL (12/09/2024 7:22 PM CDT) STOOL BLOOD ,IFOBT Negative Negative 12/09/2024 7:46 PM CDT [facility] Stool STOOL SPECIMEN / Unknown Non-Blood / Unknown 12/09/2024 7:22 PM CDT 12/09/2024 7:26 PM CDT Christie JOLLEY LABORATORY Final Result [facility] [address] [place] [address] * SCAN-CARDIAC STRIP (12/09/2024 7:15 PM CDT) us Scanner OTHER Final Result * Screening hemoglobin A1c FOR ADD ON (12/09/2024 6:59 PM CDT) HEMOGLOBIN A1C SCREENING 5.3 <=6.4 % 12/10/2024 7:58 AM CDT [facility] Blood BLOOD SPECIMEN / Unknown Venipuncture / Unknown 12/09/2024 6:59 PM CDT 12/09/2024 7:03 PM CDT Narrative [facility] - 12/10/2024 7:58 AM CDT (<5.7%) Normal (5.7% to 6.4%) Indicates prediabetes (>=6.5%) Confirms diabetes Falsely low levels may be seen with: Recent Transfusion, Recent Significant Blood Loss, Hemolytic Diseases, or Falsely elevated levels may be seen with: Untreated Anemias, Splenectomy Anuradha Bueno MD CHEMISTRY Final R esult [facility] [address] [place] [address] * TYPE AND SCREEN ONLY (12/09/2024 6:59 PM CDT) ABORH A Rh Positive 12/09/2024 7:44 PM CDT [facility] BLOOD BANK ANTIBODY SCREEN Negative Negative 12/09/2024 7:44 PM CDT [facility] BLOOD BANK SPECIMEN EXPIRATION DATE/TIME 12/12/24 23:59 12/09/2024 7:44 PM CDT [facility] BLOOD BANK Blood BLOOD SPECIMEN / Unknown Venipuncture / Unknown 12/09/2024 6:59 PM CDT 12/09/2024 7:03 PM CDT Christie JOLLEY BLOOD BANK Final Result [facility] BLOOD BANK [address] [place] [address] * (ABNORMAL) Reticulocyte count AM (12/09/2024 6:59 PM CDT) Pathologist [facility] RETIC% 1.9(H) 0.5 - 1.5 % 12/10/2024 12:40 PM CDT [facility] RETIC (ABSOLUTE) 0.04 0.03 - 0.08 mil/cu mm 12/10/2024 12:40 PM CDT [facility] Blood BLOOD SPECIMEN / Unknown Venipuncture / Unknown 12/09/2024 6:59 PM CDT 12/09/2024 7:03 PM CDT us Anuradha Bueno MD HEMATOLOGY Final R esult Performing Organization Address City/[facility]/ZIP Co de Phone Number [facility] [address] [address], * (ABNORMAL) HEPATIC FUNCTION PANEL (12/09/2024 6:59 PM CDT) Pathologist [facility] ALBUMIN 3.1(L) 4.0 - 4.9 g/dL 12/09/2024 8:18 PM CDT [facility] PROTEIN,TOTAL 5.9(L) 6.0 - 8.0 g/dL 12/09/2024 8:18 PM T [facility] BILIRUBIN,TOTAL 0.2 0.0 - 1.2 mg/dL 12/09/2024 8:18 PM CDT [facility] BILIRUBIN,DIRECT 0.1 0.0 - 0.2 mg/dL 12/09/2024 8:18 PM T [facility] BILIRUBIN,INDIRE CT 0.1(L) 0.2 - 0.8 mg/dL 12/09/2024 8:18 PM CDT [facility] ALK PHOSPHATASE 82 35 - 104 IU/L 12/09/2024 8:18 PM T [facility] ALT (SGPT) <5(L) 10 - 35 IU/L 12/09/2024 8:18 PM CDT [facility] AST (SGOT) 17 10 - 35 IU/L 12/09/2024 8:18 PM CDT [facility] Blood BLOOD SPECIMEN / Unknown Venipuncture / Unknown 12/09/2024 6:59 PM CDT 12/09/2024 7:33 PM CDT Christie JOLLEY CHEMISTRY Final Result [facility] [address] [place] [address] * XR CHEST 2 VIEWS PA AND [...] NOW QTc 456 ms BEYOND NOW P Lawrence 38 degrees BEYOND NOW R Lawrence 16 degrees BEYOND NOW T Lawrence 29 degrees BEYOND NOW 12/09/2024 5:47 PM CDT 12/09/2024 6:40 PM CDT Christie JOLLEY EKG ORD Final Result Performing Organization Address City/[facility] Co de Phone Number BEYOND NOW [place], [place] * CWS PATH REVIEW HEMATOLOGY (12/09/2024 5:43 PM CDT) PATH COMMENT Comment 12/13/2024 7:26 AM CDT [facility] Comment:Please refer to Sanna pheral blood morphology [id number]. Reviewed by Marisol Castillo MT MS ([facility]) on 12/13/2024 Blood BLOOD SPECIMEN / Unknown Butterfly / Unknown 12/09/2024 5:43 PM CDT 12/09/2024 5:47 PM CDT Christie JOLLEY LABORATORY Final Result [facility] [address] [place] [address], [place] * (ABNORMAL) TROPONIN T (HS) ACUTE W/2HR REFLEX (12/09/2024 5:43 PM CDT) TROPONIN T HS 13(H) 6-10 ng/L ng/L 12/09/2024 8:18 PM CDT [facility] Blood BLOOD SPECIMEN / Unknown Butterfly / Unknown 12/09/2024 5:43 PM CDT 12/09/2024 5:47 PM CDT [facility] LABOR[facility] - 12/09/2024 [...] patient population. Christie JOLLEY CHEMISTRY Final Result [facility] [address] [facility] [place] [address] * (ABNORMAL) CBC WITH AUTO DIFFERENTIAL (12/09/2024 5:43 PM CDT) Pathologist [facility] WHITE BLOOD COUNT 9.7 4.5 - 11.0 thou/cu mm 12/09/2024 6:25 PM CDT [facility] [facility] RED BLOOD COUNT 2.33(L) 4.00 - 5.20 mil/cu mm 12/09/2024 6:25 PM T [facility] HEMOGLOBIN 5.5(LL) 12.0 - 16.0 g/dL 12/09/2024 6:25 PM [facility] HEMATOCRIT 21.2(L) 33.0 - 51.0 % 12/09/2024 6:25 PM [facility] MCV 91 80 - 100 fL 12/09/2024 6:25 PM [facility] MCH 23.6(L) 26.0 - 34.0 pg 12/09/2024 6:25 PM [facility] MCHC 25.9(L) 32.0 - 36.0 g/dL 12/09/2024 6:25 PM [facility] RDW 22.8(H) 11.5 - 15.5 % 12/09/2024 6:25 PM [facility] PLATELET COUNT 648(H) 140 - 440 thou/cu mm 12/09/2024 6:25 PM [facility] MPV 9.2 6.5 - 11.0 fL 12/09/2024 6:25 PM [facility] Blood BLOOD SPECIMEN / Unknown Butterfly / Unknown 12/09/2024 5:43 PM CDT 12/09/2024 5:47 PM CDT Christie JOLLEY HEMATOLOGY Final Result [facility] [address] [place] [address] * (ABNORMAL) RED CELL MORPHOLOGY (12/09/2024 5:43 PM CDT) [facility] POLYCHROMASIA Slight 12/09/2024 6:18 PM CDT [facility] TARGET CELLS Few 12/09/2024 6:18 PM CDT [facility] TEARDROP CELLS Few 12/09/2024 6:18 PM CDT [facility] RBC COMMENT Present(A) RBC morphology appears normal, RBC morphology within normal limits for newborns. 12/09/2024 6:18 PM CDT [facility] Blood BLOOD SPECIMEN / Unknown Butterfly / Unknown 12/09/2024 5:43 PM CDT 12/09/2024 5:47 PM CDT Christie JOLLEY HEMATOLOGY Final Result Performing Organization Address City/[facility]/ZIP Co de Phone Number [facility] [address] [place] [address] * (ABNORMAL) PLATELET ESTIMATE (12/09/2024 5:43 PM CDT) [facility] PLATELET ESTIMATE Increased (A) Adequate, No estimate 12/09/2024 6:18 PM CDT [facility] Blood BLOOD SPECIMEN / Unknown Butterfly / Unknown 12/09/2024 5:43 PM CDT 12/09/2024 5:47 PM CDT Christie JOLLEY HEMATOLOGY Final Result [facility] [address] [place] [address] * EXTRA TUBE BLUE (12/09/2024 5:43 PM CDT) Blood BLOOD SPECIMEN / Unknown Butterfly / Unknown 12/09/2024 5:43 PM CDT 12/09/2024 5:47 PM CDT Christie JOLLEY LABORATORY Final Result [facility] [address] [place] [address] * (ABNORMAL) MANUAL DIFFERENTIAL (12/09/2024 5:43 PM CDT) % NEUTROPHILS 80.0 % 12/09/2024 6:18 PM CDT [facility] % LYMPHOCYTES 13.0 % 12/09/2024 6:18 PM T [facility] % MONOCYTES 6.0 % 12/09/2024 6:18 PM [facility] % EOSINOPHILS 0.0 % 12/09/2024 6:18 PM [facility] % BASOPHILS 1.0 % 12/09/2024 6:18 PM [facility] NEUTROPHILS ABSOLUTE 7.8(H) 1.7 - 7.0 thou/cu mm 12/09/2024 6:18 PM T [facility] LYMPHOCYTES ABSOLUTE 1.3 0.9 - 2.9 thou/cu mm 12/09/2024 6:18 PM [facility] MONOCYTES ABSOLUTE 0.6 <0.9 thou/cu mm 12/09/2024 6:18 PM [facility] EOSINOPHILS ABSOLUTE 0.0 <0.5 thou/cu mm 12/09/2024 6:18 PM T [facility] BASOPHILS ABSOLUTE 0.1 <0.3 thou/cu mm 12/09/2024 6:18 PM T [facility] Blood BLOOD SPECIMEN / Unknown Butterfly / Unknown 12/09/2024 5:43 PM CDT 12/09/2024 5:47 PM CDT Christie JOLLEY HEMATOLOGY Final Result [facility] [address] [place] [address] * (ABNORMAL) IRON PLUS IRON BINDING CAP (12/09/2024 5:43 PM CDT) Pathologist [facility] IRON 12(L) 37 - 145 ug/dL 12/10/2024 12:47 PM CDT [facility] UIBC (UNSATURATED) 324 112 - 347 ug/dL 12/10/2024 12:47 PM CDT [facility] IRON BINDING CAPACITY 336 250 - 400 ug/dL 12/10/2024 12:47 PM CDT [facility] IRON,% SATURATION 4(L) 14 - 50 % 12/10/2024 12:47 PM CDT [facility] Blood BLOOD SPECIMEN / Unknown Butterfly / Unknown 12/09/2024 5:43 PM CDT 12/09/2024 5:47 PM CDT Anuradha Bueno MD CHEMISTRY Final R esult [facility] [address] [place] [address], * ETHANOL SERUM OR PLASMA (12/09/2024 5:43 PM CDT) Pathologist [facility] ETHANOL <0.010 <0.010 g/dL 12/09/2024 6:07 PM CDT [facility] Blood BLOOD SPECIMEN / Unknown Butterfly / Unknown 12/09/2024 5:43 PM CDT 12/09/2024 5:47 PM CDT Christie JOLLEY CHEMISTRY Final Result [facility] [address] [place] [address] * PROTIME-INR (12/09/2024 5:43 PM CDT) INR 1.1 <1.3 12/10/2024 2:44 PM CDT [facility] PROTIME 12.4 10.6 - 12.4 sec 12/10/2024 2:44 PM CDT [facility] Blood BLOOD SPECIMEN / Unknown Butterfly / Unknown 12/09/2024 5:43 PM CDT 12/09/2024 5:47 PM CDT [facility] - 12/10/2024 [...] UFH. Ebonie Rich DO HEMATOLOGY Final Result [facility] [address] [place] [id number] * (ABNORMAL) PRO-BNP (12/09/2024 5:43 PM CDT) PRO-BNP 211(H) <125 pg/mL 12/09/2024 8:18 PM CDT [facility] Blood BLOOD SPECIMEN / Unknown Butterfly / Unknown 12/09/2024 5:43 PM CDT 12/09/2024 5:47 PM CDT [facility] - 12/09/2024 [...] failure. Christie JOLLEY SEND OUTS Final Result Performing Organization Address [facility] Co de Phone Number [facility] [address] [place] [address] * Haptoglobin AM (12/09/2024 5:43 PM CDT) Haptoglobin 163 30 - 200 mg/dL 12/10/2024 4:55 PM CDT [facility] Blood BLOOD SPECIMEN / Unknown Butterfly / Unknown 12/09/2024 5:43 PM CDT 12/09/2024 5:47 PM CDT Anuradha Bueno MD CHEMISTRY Final R [facility] Performing Organization Address [facility] Co de Phone Number [facility] [address] [place] [address], [place] * (ABNORMAL) FERRITIN (12/09/2024 5:43 PM CDT) FERRITIN 10.2(L) 15.0 - 150.0 ng/mL 12/10/2024 12:56 PM CDT [facility] Blood BLOOD SPECIMEN / Unknown Butterfly / Unknown 12/09/2024 5:43 PM CDT 12/09/2024 5:47 PM CDT Anuradha Bueno MD CHEMISTRY Final R [facility] Performing Organization Address [facility] Co de Phone Number [facility] [address] [place] [address], [place] * (ABNORMAL) BASIC METABOLIC PANEL (12/09/2024 5:43 PM CDT) SODIUM 141 136 - 145 mmol/L 12/09/2024 6:24 PM [facility] POTASSIUM 2.3(LL) 3.5 - 5.1 mmol/L 12/09/2024 6:24 PM [facility] CHLORIDE 105 98 - 107 mmol/L 12/09/2024 6:24 PM [facility] CO2,TOTAL 26 22 - 29 mmol/L 12/09/2024 6:24 PM [facility] ANION GAP 10 5 - 18 12/09/2024 6:24 PM [facility] GLUCOSE 113(H) 70 - 99 mg/dL 12/09/2024 6:24 PM [facility] CALCIUM 9.0 8.8 - 10.4 mg/dL 12/09/2024 6:24 PM [facility] Comment: Reference ranges for this test were updated on 07/30/2024 to reflect our healthy population more accurately. Reference range changes are not retroactively applied to results, but previous results using the same methodology can be interpreted in the context of the new reference range. BUN 8 6 - 20 mg/dL 12/09/2024 6:24 PM [facility] CREATININE 0.36(L) 0.50 - 0.90 mg/dL 12/09/2024 6:24 PM [facility] BUN/CREAT RATIO 22(H) 10 - 20 6:24 PM [facility] eGFR >90 >90 mL/min/1. 73m2 12/09/2024 6:24 PM [facility] Comment:As of 2021, eG FR [...] PM CDT Christie JOLLEY CHEMISTRY Final Result [facility] [address] [place] [address] from Last 3 Months Insurance MEDICAID Advance Directives * Full Code (Latest Code Status on File) Date Activated Date Inactivated Comments 12/10/2024 12:18 AM 12/10/2024 8:53 PM Question Answer Comments Code Status Discussion: Reviewed Preferences Care Teams Rehabilitation Caseworker Relationship Specialty Start Date End Date Anish Locke MD [address] [place] [address] PCP - General Family Practice 02/02/25
[2025-02-21 15:23] VITALS: BP 115/80; PULSE 95; RESP 20; TEMP 37; O2SAT 96; BMI 22.1
--- NOTE | 2025-02-21 15:46 | ED.GENADULT ---
HPI - General Adult General Chief complaint: Weakness Stated complaint: can't keep food down/ feels groggy Time Seen by Provider: 02/21/25 15:46 History of Present Illness HPI narrative: Pt was recently hospitalized at [facility] a week ago for hand surgery, was dx with ulcers at that time. DC on . Has been unable to intake/keep food down for the last 4 days . Pt reports feeling lightheaded, seeing spots, feel like I'm dying. 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 States unable to take meds today. 45-year-old woman presenting to emergency department with concern of increasing weakness. Is not reporting any headache. She does feel lightheaded. Has been vomiting. No hematochezia or hematemesis described. Was just discharged 5 days ago from [facility] after a stay for gangrene on the right hand. She did have 2 surgery she reports. Was diagnosed at this facility with gangrene in the setting of Buerger's disease. While at [facility] apparently she was also scoped and noted to have ulcers. Sounds like there is some esophageal narrowing as well but it does not sound as though the dilatation was done. She is taking pantoprazole. At discontinued from Zofran and placed on hydroxyzine. She is currently taking Bactrim as well although notes that she is having trouble taking her medications today. She has not had any fever. No dysuria. Some abdominal discomfort. Has had looser stools. She says that her wound is healing well. Related Data Home Medications ?Medication ?Instructions ?Recorded ?Confirmed pantoprazole 40 mg tablet,delayed 40 mg PO BID 01/08/25 02/21/25 release acetaminophen 500 mg tablet 1,000 mg PO QID 02/21/25 02/21/25 gabapentin 300 mg capsule 300 mg PO 3XD 02/21/25 02/21/25 hydromorphone 2 mg tablet mg PO 02/21/25 hydroxyzine pamoate 25 mg capsule mg PO 02/21/25 methocarbamol 500 mg tablet mg PO 02/21/25 metronidazole 500 mg tablet 500 mg PO Q8H 02/21/25 02/21/25 ondansetron 4 mg disintegrating mg PO 02/21/25 tablet sulfamethoxazole 800 1 tab PO BID 02/21/25 02/21/25 mg-trimethoprim 160 mg tablet varenicline tartrate 0.5 mg tablet mg PO 02/21/25 Previous Rx's ?Medication ?Instructions ?Recorded ondansetron 8 mg disintegrating 8 mg PO TID PRN nausea and 01/23/25 tablet vomiting #30 tabs oxycodone 5 mg tablet 5 mg PO BID PRN pain #40 tabs 01/31/25 Held on 02/21/25. Instructions: Doctor's Order metoclopramide HCl 10 mg tablet 10 mg PO Q8H PRN nausea and 02/21/25 vomiting #15 tabs potassium bicarbonate-citric acid 25 meq PO DAILY #10 ea 02/21/25 25 mEq effervescent tablet Allergies Allergy/AdvReac Type Severity Reaction Status Date / Time ibuprofen Allergy Unknown Facial Verified 02/07/25 17:42 Edema Review of Systems Status of ROS: Reports: 6 or more systems reviewed and unremarkable except as noted in History and below [facility] Medical History Iron deficiency anemia due to chronic blood loss ?D50.0 - Iron deficiency anemia secondary to blood loss (chronic) (ICD-10) GERD (gastroesophageal reflux disease) ?K21.9 - Gastro-esophageal reflux disease without esophagitis (ICD-10) Major depression, recurrent ?F33.9 - Major depressive disorder, recurrent, unspecified (ICD-10) FLOR positive ?R76.8 - Other specified abnormal immunological findings in serum (ICD-10) Osteochondrosis ?M93.90 - Osteochondropathy, unspecified of unspecified site (ICD-10) Environmental allergies ?Z91.09 - Other allergy status, other than to drugs and biological substances (ICD-10) Tobacco abuse ?Z72.0 - Tobacco use (ICD-10) Esophageal abnormality ?K22.9 - Disease of esophagus, unspecified (ICD-10) Thromboangiitis obliterans (Buerger's disease) ?I73.1 - Thromboangiitis obliterans [Buerger's disease] (ICD-10) Surgical History History of cholecystectomy (2006) ?Z90.49 - Acquired absence of other specified parts of digestive tract (ICD-10) History of tubal ligation ?Z98.51 - Tubal ligation status (ICD-10) Family History Mother Thyroid disease High blood pressure Social History Narrative: , 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, 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, no 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, smoker What is your current living situation?: I presently have a place to live In the past 12 months, utilities in danger of being shut off: no In past 12 months, lack of transportation kept you from medical appts, meetings, work, or getting things needed for daily living: no In the past 12 mos, have been you worried that your food would run out before you had money to buy more?: never true In the past 12 mos, the food you bought just didn't last and you didn't have money to buy more?: never true Smoking Status: Current every day smoker What tobacco products do you use: cigarettes Smoking packs per day: 0.3 Smoking cigarettes per day: 6.0 Do you use any of these nicotine containing products: None Second hand tobacco smoke exposure: Yes How often do you have a drink containing alcohol: never How often do you have six or more drinks on one occasion: Never AUDIT-C Alcohol total score: 0 Non-prescribed substance use: denies use How often does anyone, including family, friends and others, physically hurt you: never How often does anyone, including family, friends and others, insult or talk down to you: never How often does anyone, including family, friends and others, threaten you with harm: never How often does anyone, including family, friends and others, scream or curse at you: never service: No Exam Narrative: Exam Narrative: Pleasant. Does seem tired. Skin is warm and dry. Numerous digits are traveled in darkened. I do not see any inflammatory changes. Right index finger is now missing with a well healing surgical wound in its place. Sutures are still in. No inflammatory changes around here. Lungs are clear. Heart is elevated in its rate. Regular rhythm. Abdomen is soft and nontender. Images are without edema. Const: Vital Signs, click to edit/add: Vital Signs - 24 hr 02/21/25 15:23 02/21/25 16:51 02/21/25 18:16 Temperature 98.6 F Pulse Rate 71 Pulse Rate [Pulse Oximeter] 95 Pulse Rate [orthos tatic lying Pulse Oximeter] 77 Pulse Rate [orthos tatic sitting Puls e Oximeter] 99 Pulse Rate [orthos tatic standing Pul se Oximeter] 105 H Respiratory Rate 20 16 Blood Pressure 120/84 Blood Pressure [Ri ght Upper Arm] 115/80 Blood Pressure [or thostatic lying Ri ght Arm] 116/73 Blood Pressure [or thostatic sitting Right Arm] 108/79 Blood Pressure [or thostatic standing Right Arm] 92/77 Pulse Oximetry 96 96 Oxygen Delivery Me thod Room Air Room Air 02/21/25 21:12 Temperature Pulse Rate 91 Pulse Rate [Pulse Oximeter] Pulse Rate [orthos tatic lying Pulse Oximeter] Pulse Rate [orthos tatic sitting Puls e Oximeter] Pulse Rate [orthos tatic standing Pul se Oximeter] Respiratory Rate 16 Blood Pressure 131/88 Blood Pressure [Ri ght Upper Arm] Blood Pressure [or thostatic lying Ri ght Arm] Blood Pressure [or thostatic sitting Right Arm] Blood Pressure [or thostatic standing Right Arm] Pulse Oximetry 98 Oxygen Delivery Me thod Room Air Documenting provider has reviewed patient's vital signs: yes Course Vital Signs Vital signs: Initial Vital Signs Temperature 98.6 F 02/21/25 15:23 Temperature Source Temporal Artery Scan 02/21/25 15:23 Pulse Rate 95 02/21/25 15:23 Respiratory Rate 20 02/21/25 15:23 Blood Pressure 115/80 02/21/25 15:23 Blood Pressure Mean 91 02/21/25 15:23 Blood Pressure Position Sitting 02/21/25 15:23 Pulse Oximetry 96 02/21/25 15:23 Oxygen Delivery Method Room Air 02/21/25 15:23 Vital Signs Temperature 98.6 F 02/21/25 15:23 Pulse Rate 95 02/21/25 15:23 Respiratory Rate 20 02/21/25 15:23 Blood Pressure 115/80 02/21/25 15:23 Pulse Oximetry 96 02/21/25 15:23 Oxygen Delivery Method Room Air 02/21/25 15:23 Temperature 98.6 F 02/21/25 15:23 Pulse Rate 91 02/21/25 21:12 Respiratory Rate 16 02/21/25 21:12 Blood Pressure 131/88 02/21/25 21:12 Pulse Oximetry 98 02/21/25 21:12 Oxygen Delivery Method Room Air 02/21/25 21:12 Medications Administered Medications: Generic Name Dose Route Start Last Admin Trade Name Ana PRN Reason Stop Dose Admin Sodium Chloride 500 mls @ 800 mls/hr 02/21/25 21:44 02/21/25 21:47 0.9 % Sodium Chloride 500 Ml IV 02/21/25 22:21 800 mls/hr .Q38M ONE Administration Discontinued Medications Generic Name Dose Route Start Last Admin Trade Name Ana PRN Reason Stop Dose Admin Hydromorphone HCl 2 mg 02/21/25 15:59 02/21/25 18:04 Hydromorphone 2 Mg Tablet PO 02/21/25 16:00 2 mg ONCE ONE Administration Sodium Chloride 1,000 mls @ 1,000 mls/hr 02/21/25 17:49 02/21/25 21:48 0.9 % Sodium Chloride 1000 Ml IV 02/21/25 18:48 Infused .Q1H ONE Infusion Metoclopramide HCl 10 mg/ 102 mls @ 306 mls/hr 02/21/25 19:41 02/21/25 21:17 Sodium Chloride IVPB 02/21/25 19:42 Infused ONCE ONE Infusion Lidocaine/Aluminum/Magnesium/Simeth 30 ml 02/21/25 19:55 02/21/25 20:22 Gi Cocktail (Visc Lido/Antacid) 30 Ml PO 02/21/25 19:56 30 ml ONCE ONE Administration Omeprazole 40 mg 02/21/25 19:55 02/21/25 20:07 Omeprazole [address] PO 02/21/25 19:56 40 mg ONCE ONE Administration Ondansetron HCl 4 mg 02/21/25 15:59 02/21/25 18:03 Ondansetron 2 Mg/Ml Inj IVP 02/21/25 16:00 4 mg ONCE ONE Administration Potassium Bicarbonate 50 meq 02/21/25 19:36 02/21/25 21:11 Potassium Bicarb 25 Meq Effervescent Tab PO 02/21/25 19:37 50 meq ONCE ONE Administration Medical Decision Making MDM Narrative Medical decision making narrative: Does not appear to be experiencing with wound infection. Can certainly check labs looking for electrolyte abnormalities or recurrent anemia. Might be evidence of other infection. Screen for COVID and urine tract infection. May have other GI bug. May be experiencing some esophageal achalasia of some sort. Will treat with her usual pain medication. Checking orthostatics she is clearly positive by numbers and symptoms. Challenge will be initiating IV. Might need anesthesia is help. At this point does not need central line. Did ultimately managed to get 30 small gauge IV in the thumb with anesthesia an ultrasound assistance. Only running at quite slowly. Labs with reassuring white count 8.3; last checked was nearly 14 with gangrenous infection. hemoglobin of 9.7 which is a g lower than 2 weeks ago potassium of 2.4 which is similar to 2 weeks ago and is chronically hypokalemic though does not supplement. At about 745p we have managed in only about 150 mL of fluid. Does not feel worse other than some dyspeptic symptoms. I had proposed oral potassium as I do not think we can challenge this IV line. Plan had been to get enough fluids in to enable use your placement of another IV. Have requested dosing of another antiemetic was Reglan and will trial oral potassium after a GI cocktail and PPI; the latter per her request. Is improved on reassessment. Sitting up. Is tolerating the oral potassium. I have proposed another L of fluid hydration but she would really like to go home after this current L With history of hypokalemia might be contraindicated for Zofran; she does have more of this at home. Will be giving another 500 mL of fluids and then discharging per her preference. See patient discharge plan for further discussion Continue to focus on hydration. Keep taking your pantoprazole. I will send in a prescription of Reglan for you, also known as metoclopramide, for nausea. Is important to take some potassium supplementation I think at this point. Would like you to recheck labs in a week. I understand would be hard free to take the pill of potassium and so I am sending in something that can dissolve in liquid. Medical Records Medical records reviewed: Yes I reviewed the patient's medical records Lab Data Lab results reviewed: Yes I reviewed the patient's lab results Labs: Lab Results 02/21/25 02/21/25 02/21/25 Range/Units 17:30 18:57 19:37 WBC 8.33 (4.50-11.00) K/uL RBC 2.82 L (4.00-5.20) m/uL Hgb 9.7 L (12.0-16.0) gm/dL Hct 31.0 L (33.0-51.0) % MCV 110 H (80-100) fL MCH 34 (26-34) pg MCHC 31 L (32-36) gm/dL RDW Coeff of Jolanta 14.7 (11.5-15.5) % Plt Count 409 (140-440) K/uL Neut % (Auto) 79.2 H (42.0-72.0) % Lymph % (Auto) 11.9 L (20-44) % Pope % (Auto) 6.1 (0.0-11.0) % Eos % (Auto) 1.4 (0.0-7.0) % Baso % (Auto) 0.7 (0.0-3.0) % Neut # (Auto) 6.60 (1.7-7.0) K/uL Lymph # (Auto) 1.00 (0.90-2.90) K/uL Pope # (Auto) 0.50 (0.00-0.90) K/UL Eos # (Auto) 0.12 (0.00-0.50) K/uL Baso # (Auto) 0.06 (0.00-0.30) K/uL Abs Immat Gran (auto) 0.06 (0.00-0.30) K/uL Imm/Tot Granulo (auto) 0.7 % Sodium 132 L (135-149) mmol/L Potassium 2.4 L* (3.6-5.1) mmol/L Chloride 93 L (96-114) mmol/L Carbon Dioxide 33 H (20-32) mmol/L Anion Gap 6 L (7-15) mEq/L BUN 7 (5-24) mg/dL Creatinine 0.5 (0.5-1.5) mg/dL Estimated Creat Clear 106.09 Estimated GFR 117 ml/min Glucose 64 (60-115) mg/dL Calcium 8.1 L (8.4-10.6) mg/dL Magnesium 1.7 (1.5-2.6) mg/dL SARS-CoV-2 (PCR) Negative SARS-CoV-2 (Negative) Influenza Type A (PCR) Negative PCR FLU A (Negative) Influenza Type B (PCR) Negative PCR FLU B (Negative) RSV (PCR) Negative PCR RSV (Negative) Lab Acknowledgement Test Added Discharge Plan Discharge Clinical Impression: Hypokalemia, Dehydration Patient Disposition: Home w/ Parent or Adult Condition: Improved Additional Instructions: Continue to focus on hydration. Keep taking your pantoprazole. I will send in a prescription of Reglan for you, also known as metoclopramide, for nausea. Is important to take some potassium supplementation I think at this point. Would like you to recheck labs in a week. I understand would be hard free to take the pill of potassium and so I am sending in something that can dissolve in liquid. Prescriptions: New potassium bicarb-citric acid 25 mEq tablet, effervescent 25 meq PO DAILY Qty: 10 0RF metoclopramide HCl 10 mg tablet 10 mg PO Q8H PRN (Reason: nausea and vomiting) Qty: 15 0RF No Action ondansetron 8 mg tablet,disintegrating 8 mg PO TID PRN (Reason: nausea and vomiting) Qty: 30 1RF pantoprazole 40 mg tablet,delayed release (DR/EC) 40 mg PO BID methocarbamol 500 mg tablet PO metronidazole 500 mg tablet 500 mg PO Q8H sulfamethoxazole-trimethoprim 800-160 mg tablet 1 tab PO BID acetaminophen 500 mg tablet 1,000 mg PO QID hydromorphone 2 mg tablet PO gabapentin 300 mg capsule 300 mg PO 3XD ondansetron 4 mg tablet,disintegrating PO hydroxyzine pamoate 25 mg capsule PO varenicline tartrate 0.5 mg tablet PO oxycodone 5 mg tablet 5 mg PO BID PRN (Reason: pain) Qty: 40 0RF Rx Instructions: Chronic pain, not acute Follow Up/Referrals: Anish Locke MD [Primary Care Provider, Family Practice] Stand Alone Forms: [employer] Info Instructions
[2025-02-21 16:51] VITALS: BP 108/79; BP 116/73; BP 92/77; PULSE 105; PULSE 77; PULSE 99
[2025-02-21] MEDS: ONDANSETRON 2 MG/ML inj 4 MG IVP (18:03)
[2025-02-21] MEDS: 0.9 % SODIUM CHLORIDE 1000 ml 1,000 ML IV (18:04)
[2025-02-21] MEDS: HYDROmorphone 2 MG TABLET PO (18:04)
[2025-02-21 18:16] VITALS: BP 120/84; PULSE 71; RESP 16; O2SAT 96
[2025-02-21 19:12] LABS: Basophils Absolute Auto 0.06 K/uL (0.00-0.30); Basophils Percent Auto 0.7 % (0.0-3.0); Eosinophils Absolute Auto 0.12 K/uL (0.00-0.50); Eosinophils Percent Auto 1.4 % (0.0-7.0); Hemoglobin* 9.7 gm/dL (12.0-16.0); Immature Granulocytes Abs Auto 0.06 K/uL (0.00-0.30); Immature Granulocytes Pct Auto 0.7 %; Lymphocytes Percent Auto 11.9 % (20-44); Mean Corpuscular HGB Conc 31 gm/dL (32-36); Mean Corpuscular Hemoglobin 34 pg (26-34); Mean Corpuscular Volume 110 fL (80-100); Monocytes Percent Auto 6.1 % (0.0-11.0); Neutrophils Percent Auto 79.2 % (42.0-72.0); Platelet Count* 409 K/uL (140-440); RDW Coefficient of Variation % 14.7 % (11.5-15.5); Red Blood Count 2.82 m/uL (4.00-5.20); White Blood Count* 8.33 K/uL (4.50-11.00)
[2025-02-21 19:19] LABS: PCR FLU A Negative PCR FLU A (Negative); PCR FLU B Negative PCR FLU B (Negative); PCR RSV Negative PCR RSV (Negative); SARS PCR* Negative SARS-CoV-2 (Negative)
[2025-02-21 19:25] LABS: Chloride* 93 mmol/L (96-114)
[2025-02-21 19:26] LABS: Sodium* 132 mmol/L (135-149)
[2025-02-21 19:28] LABS: Blood Urea Nitrogen* 7 mg/dL (5-24); Creatinine* 0.5 mg/dL (0.5-1.5); Est. Creatinine Clearance* 106.09; Estimated Glomerular Filt Rate 117 ml/min
[2025-02-21 19:29] LABS: Anion Gap 6 mEq/L (7-15); Calcium* 8.1 mg/dL (8.4-10.6); Carbon Dioxide* 33 mmol/L (20-32); Glucose* 64 mg/dL (60-115); Slide Review Reflex No
[2025-02-21 19:31] LABS: Potassium* 2.4 mmol/L (3.6-5.1)
[2025-02-21] MEDS: OMEPRAZOLE 20 MG CAPSULE DR 40 MG PO (20:07)
[2025-02-21 20:16] LABS: Magnesium* 1.7 mg/dL (1.5-2.6)
[2025-02-21] MEDS: GI COCKTAIL (VISC LIDO/ANTACID) 30 ML PO (20:22)
[2025-02-21] MEDS: METOCLOPRAMIDE HCL 10 MG in 0.9 % SODIUM CHLORIDE 100 ml 100 ML 306 MG IVPB (20:29)
[2025-02-21] MEDS: POTASSIUM BICARB 25 MEQ EFFERVESCENT TAB 50 MEQ PO (21:11)
[2025-02-21 21:12] VITALS: BP 131/88; PULSE 91; RESP 16; O2SAT 98
[2025-02-21] MEDS: 0.9 % SODIUM CHLORIDE 500 ML 500 ML 800 ML IV (21:47)
== END 2025-02-21 22:37 | disposition home or self-care (01) ==
PROVIDERS: Emergency Provider Family Medicine; PCP Family Medicine
DX: E86.0 Dehydration (principal); E87.6 Hypokalemia; R42 Dizziness and giddiness; R11.10 Vomiting, unspecified; R10.9 Unspecified abdominal pain; F17.210 Nicotine dependence, cigarettes, uncomplicated; Z79.899 Other long term (current) drug therapy
CPT/HCPCS: 36415; 80048; 81001; 83735; 85025; 87631; 96365; 96375; 99284; A9270; J2405; J2765; J7030

== ENCOUNTER 2025-04-08 15:41 | Outpatient (CLI) | payer BC, SELFPAY | END 2025-04-08 15:42 | disposition home or self-care (01) | PROVIDERS: PCP Family Medicine; Visit Provider Family Medicine | DX: R11.2 Nausea with vomiting, unspecified (principal); E55.9 Vitamin D deficiency, unspecified; R53.81 Other malaise | CPT/HCPCS: 80048; 83735; 85025 ==